=== PATIENT | female | born 1990 | race Caucasian/White ===

== ENCOUNTER 2017-10-01 19:08 | Emergency (ER) | payer SELFPAY ==
--- NOTE | 2017-10-01 22:55 | EDPHYS ---
Physician Documentation [facility] Name: Tyra Villalta Age: 26 yrs Sex: Female : 1990 Arrival Date: 10/01/2017 Time: 19:09 Bed Waiting Private MD: ED Physician Jayden Cerna HPI: 10/01 19:51 This 26 yrs old Female presents to ER via Ambulatory with complaints of kav Abscess. 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 - Social history:: Smoking status: Patient uses tobacco products, smokes one pack cigarettes per day. Vital Signs: 19:31 BP 161 / 114; Pulse 78; Resp 19 S; Temp 98.3(O); Pulse Ox 100% on R/A; Weight 113.4 kg; ea Height 5 ft. 4 in. (162.56 cm); Pain 10/10; 19:31 Body Mass Index 42.91 (113.40 kg, 162.56 cm) ea MDM: 19:52 Patient medically screened. kav Administered Medications: No medications were administered Disposition: 10/02 06:20 Co-signature as Attending Physician, Ragini BURROWS. ursula Disposition: 10/01/17 22:54 Patient left the facility before being seen by provider. - Patient left due to unknown. Signatures: Ragini Edouard FNP FNP kav Ballard, Brenda RN Irene Gold RN RN ea Starr, Gregory, MD MD gs
--- NOTE | 2017-10-01 22:55 | ER ---
Nurse's Notes [facility] Name: Tyra Villalta Age: 26 yrs Sex: Female : 1990 Arrival Date: 10/01/2017 Time: 19:09 Bed Waiting Private MD: Diagnosis: Presentation: 10/01 19:27 Presenting complaint: Patient states: Tooth ache that started yesterday, reports ea swelling to the right side of gums. Transition of care: patient was not received from another setting of care. Onset of symptoms was October 01, 2017. Care prior to arrival: Medication(s) given: Motrin. 19:27 Method Of Arrival: Ambulatory ea 19:27 Acuity: BREANNA 5 ea Triage Assessment: 19:32 General: Appears uncomfortable, Behavior is calm, cooperative, appropriate for age. ea Pain: Complains of pain in mouth Pain does not radiate. Pain radiates to head Pain currently is 10 out of 10 on a pain scale. Quality of pain is described as aching, throbbing, Pain began 2-3 days ago. 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 - Social history:: Smoking status: Patient uses tobacco products, smokes one pack cigarettes per day. Vital Signs: 19:31 BP 161 / 114; Pulse 78; Resp 19 S; Temp 98.3(O); Pulse Ox 100% on R/A; Weight 113.4 kg; ea Height 5 ft. 4 in. (162.56 cm); Pain 10/10; 19:31 Body Mass Index 42.91 (113.40 kg, 162.56 cm) ea ED Course: 19:09 Patient arrived in ED. mr 19:30 Triage completed. ea 19:50 Ragini Edouard FNP [facility] ka 19:51 Jayden Cerna MD is Attending Physician. ka 22:54 Patient's name was called from ER lobby. No response. Unable to locate patient. Will bb disposition as left without being seen by a provider. Administered Medications: No medications were administered Outcome: 22:54 Patient left the ED. bb Signatures: Ragini Edouard FNP FNP kav Rivera, Maria mr Radha Espino, RN RN Irene Allen RN RN christopher
== END 2017-10-01 22:54 | disposition left against medical advice (07) ==
LOC: ER 19:08
DX: Z02.9 Encounter for administrative examinations, unspecified
CPT/HCPCS: 99281

== ENCOUNTER 2018-01-12 12:45 | Emergency (ER) | payer SELFPAY ==
[2018-01-12] MEDS ORDERED: TETRACAINE HCL 0.5% 2ML OPTH ONE (13:19)
[2018-01-12] MEDS ORDERED: AMOX/K CLAV 875 MG TAB ONE (13:19)
[2018-01-12] MEDS ORDERED: HYDROCODONE/APAP 5/325 MG TAB ONE (13:19)
--- NOTE | 2018-01-12 13:37 | ER ---
Nurse's Notes [facility] Name: Tyra Villalta Age: 27 yrs Sex: Female : 1990 Arrival Date: 01/12/2018 Time: 12:49 Bed 24 Private MD: None, None Diagnosis: Acute serous otitis media Presentation: 01/12 12:51 Presenting complaint: Patient states: richar been having ear pain since i woke up this morning; denies fever and chills; took Mucinex and ibuprofen;. Transition of care: patient was not received from another setting of care. Onset of symptoms was January 12, 2018. Risk Assessment: Do you want to hurt yourself or someone else? Patient reports no desire to harm self or others. Initial Sepsis Screen: Does the patient meet any 2 criteria? No. Patient's initial sepsis screen is negative. Does the patient have a suspected source of infection? No. Patient's initial sepsis screen is negative. Care prior to arrival: None. 12:51 Method Of Arrival: Ambulatory 12:51 Acuity: BREANNA 4 Triage Assessment: 12:53 General: Appears in no apparent distress. uncomfortable, Behavior is cooperative, hj appropriate for age, crying. Pain: Complains of pain in left ear. EENT: Reports pain in left ear. 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 - Social history:: Smoking status: Patient uses tobacco products, smokes one pack cigarettes per day. Patient/guardian denies using alcohol. - Ebola Screening: : Patient negative for fever greater than or equal to 101.5 degrees Fahrenheit, and additional compatible Ebola Virus Disease symptoms Patient denies exposure to infectious person Patient denies travel to an Ebola-affected area in the 21 days before illness onset. Screenin:53 Abuse screen: Denies threats or abuse. Denies injuries from another. Nutritional hj screening: No deficits noted. Tuberculosis screening: No symptoms or risk factors identified. Fall Risk None identified. Assessment: 14:19 General: Appears in no apparent distress. comfortable, Behavior is calm, cooperative, aj1 appropriate for age. Pain: Complains of pain in left ear. Neuro: Level of Consciousness is awake, alert, obeys commands, Oriented to person, place, time, situation, Speech is normal, Facial symmetry appears normal. Cardiovascular: Patient's skin is warm and dry. Respiratory: Airway is patent Respiratory effort is even, unlabored, Respiratory pattern is regular, symmetrical. GI: No signs and/or symptoms were reported involving the gastrointestinal system. : No signs and/or symptoms were reported regarding the genitourinary system. EENT: Reports ear pain. Derm: No signs and/or symptoms reported regarding the dermatologic system. Skin is pink, warm \T\ dry. normal. Musculoskeletal: No signs and/or symptoms reported regarding the musculoskeletal system. Circulation, motion, and sensation intact. Vital Signs: 12:53 BP 133 / 79; Pulse 84; Resp 18; Temp 98.8(O); Pulse Ox 98% on R/A; Weight 113.4 kg; hj Height 5 ft. 4 in. (162.56 cm); Pain 10/10; 12:53 Body Mass Index 42.91 (113.40 kg, 162.56 cm) hj ED Course: 12:49 Patient arrived in ED. mr 12:49 None, None is Private Physician. mr 12:51 Israel Sanchez PA is [facility] 12:52 Jayden Cerna MD is Attending Physician. jm 12:52 Triage completed. hj 12:53 Arm band placed on right wrist. hj 12:53 Patient has correct armband on for positive identification. Placed in gown. Bed in low hj position. Call light in reach. 13:09 Essence Kwan, AGAPITO is Primary Nurse. aj1 13:35 Kalina Wilkinson DO is Referral Physician. jmm 13:35 Juan Naqvi MD is Referral Physician. jmm 13:35 Odilon Yates MD is Referral Physician. jmm 14:19 No provider procedures requiring assistance completed. Patient did not have IV access aj1 during this emergency room visit. Administered Medications: 13:35 Drug: [place] 5 mg-325 mg 1 tabs Route: PO; aj1 14:21 Follow up: Response: No adverse reaction aj1 13:35 Drug: Augmentin 875 mg Route: PO; aj1 14:21 Follow up: Response: No adverse reaction aj1 13:35 Drug: Tetracaine Solution (0.5 %) 1 pumps Route: Topical; Site: affected area; aj1 14:21 Follow up: Response: No adverse reaction aj1 Outcome: 13:36 Discharge ordered by MD. wood 14:21 Patient left the ED. aj1 Signatures: Essence Kwan RN RN aj1 Israel Sanchez PA PA jmm Rivera, Maria mr Joaquin, Henry, RN RN hj Corrections: (The following items were deleted from the chart) 12:56 12:53 Pulse 84bpm; Resp 18bpm; Pulse Ox 98% RA; Temp 98.8F Oral; 113.4 kg; Height 5 ft. hj 4 in.; BMI: 42.9; Pain 10/10; hj
--- NOTE | 2018-01-12 13:37 | EDPHYS ---
Physician Documentation [facility] Name: Tyra Villalta Age: 27 yrs Sex: Female : 1990 Arrival Date: 01/12/2018 Time: 12:49 Bed 24 Private MD: None, None ED Physician Jayden Cerna HPI: 01/12 13:03 This 27 yrs old Female presents to ER via Ambulatory with complaints of Ear jmm Pain. 13:03 The patient presents with pain, that is acute. The complaints affect the left ear. jmm Onset: The symptoms/episode began/occurred this morning. Modifying factors: The symptoms are alleviated by nothing, the symptoms are aggravated by nothing. Associated signs and symptoms: Pertinent positives: cough. This is a 27 year old female with no chronic medical conditions that presents to the ED with left ear pain beginning this morning. The patient states having a cough and congestion over the past 3 days. Denies fever. . 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 - Social history:: Smoking status: Patient uses tobacco products, smokes one pack cigarettes per day. Patient/guardian denies using alcohol. - Ebola Screening: : Patient negative for fever greater than or equal to 101.5 degrees Fahrenheit, and additional compatible Ebola Virus Disease symptoms Patient denies exposure to infectious person Patient denies travel to an Ebola-affected area in the 21 days before illness onset. ROS: 13:03 Cardiovascular: Negative for chest pain, palpitations, and edema. jmm 13:03 Constitutional: Positive for malaise. 13:03 ENT: Positive for ear pain. 13:03 Respiratory: Positive for cough. 13:03 Neuro: Negative for headache. 13:03 All other systems are negative. Exam: 13:03 Head/Face: atraumatic. Chest/axilla: Normal chest wall appearance and motion. jmm Cardiovascular: Regular rate and rhythm. No edema appreciated Respiratory: Normal respirations, no respiratory distress appreciated 13:03 Back: Normal ROM Skin: General appearance color normal MS/ Extremity: Moves all extremities, no obvious deformities appreciated, no edema noted to the lower extremities Neuro: Awake and alert, normal gait Psych: Behavior is normal, Mood is normal, Patient is cooperative and pleasant 13:03 Constitutional: The patient appears alert, awake, in obvious pain, uncomfortable. 13:03 Respiratory: Breath sounds: are clear throughout. Vital Signs: 12:53 BP 133 / 79; Pulse 84; Resp 18; Temp 98.8(O); Pulse Ox 98% on R/A; Weight 113.4 kg; hj Height 5 ft. 4 in. (162.56 cm); Pain 10/10; 12:53 Body Mass Index 42.91 (113.40 kg, 162.56 cm) hj MDM: 12:56 Patient medically screened. [facility] 13:03 Data reviewed: vital signs, nurses notes. [facility] 13:34 Counseling: I had a detailed discussion with the patient and/or guardian regarding: the [facility] historical points, exam findings, and any diagnostic results supporting the discharge/admit diagnosis, the presence of at least one elevated blood pressure reading (>120/80) during this emergency department visit, the need for outpatient follow up, to return to the emergency department if symptoms worsen or persist or if there are any questions or concerns that arise at home. Response to treatment: the patient's symptoms have markedly improved after treatment. Administered Medications: 13:35 Drug: [place] 5 mg-325 mg 1 tabs Route: PO; aj1 14:21 Follow up: Response: No adverse reaction [facility] 13:35 Drug: Augmentin 875 mg Route: PO; aj1 14:21 Follow up: Response: No adverse reaction [facility] 13:35 Drug: Tetracaine Solution (0.5 %) 1 pumps Route: Topical; Site: affected area; aj1 14:21 Follow up: Response: No adverse reaction aj1 Disposition: 20:54 Co-signature as Attending Physician, Jayden Cerna MD. Disposition: 01/12/18 13:36 Discharged to Home. Impression: Acute serous otitis media. - Condition is Stable. - Discharge Instructions: Otitis Media, Adult. - Prescriptions for Augmentin 875- 125 mg Oral Tablet - take 1 tablet by ORAL route every 12 hours for 10 days; 20 tablet. Ultram 50 mg Oral Tablet - take 1 tablet by ORAL route every 6 hours As needed; 6 tablet. - Work release form, Medication Reconciliation Form, Thank You Letter, Antibiotic Education, Prescription Opioid Use form. - Follow up: Kalina Wilkinson DO; When: 2 - 3 days; Reason: Continuance of care. Follow up: Juan Naqvi MD; When: 2 - 3 days; Reason: Continuance of care. Follow up: Odilon Yates MD; When: 2 - 3 days; Reason: Continuance of care. Signatures: Essence Kwan RN RN aj1 Felton Salinas MD MD cha Mickail, Joel, PA PA jmm Laureano Wagner RN RN hj Jayden Cerna MD MD gs Corrections: (The following items were deleted from the chart) 14:21 13:36 01/12/2018 13:36 Discharged to Home. Impression: Acute serous otitis media. aj1 Condition is Stable. Forms are Medication Reconciliation Form, Thank You Letter, Antibiotic Education, Prescription Opioid Use. Follow up: Kalina Wilkinson; When: 2 - 3 days; Reason: Continuance of care. Follow up: Juan Naqvi; When: 2 - 3 days; Reason: Continuance of care. Follow up: Odilon Yates; When: 2 - 3 days; Reason: Continuance of care. [facility]
== END 2018-01-12 14:21 | disposition home or self-care (01) ==
LOC: ER 12:45
DX: H65.02 Acute serous otitis media, left ear (principal); F17.210 Nicotine dependence, cigarettes, uncomplicated
CPT/HCPCS: 99282

== ENCOUNTER 2018-01-13 01:33 | Emergency (ER) | payer SELFPAY ==
[2018-01-13] MEDS ORDERED: CODEINE 30MG/APAP 300MG TAB ONE (02:08)
[2018-01-13] MEDS ORDERED: KETOROLAC 30 MG/ML INJ ONE (02:09)
[2018-01-13] MEDS ORDERED: WATER FOR INJ,STERILE 10 ML ONE (02:18)
[2018-01-13] MEDS ORDERED: CEFTRIAXONE 1000 MG/VIAL ONE (02:18)
[2018-01-13] MEDS ORDERED: ONDANSETRON 4 MG (ODT) TAB ONE (02:30)
--- NOTE | 2018-01-13 02:43 | EDPHYS ---
Physician Documentation [facility] Name: Tyra Villalta Age: 27 yrs Sex: Female : 1990 Arrival Date: 01/13/2018 Time: 01:34 Bed 14 Private MD: ED Physician Jaxson Gonzales HPI: 01/13 02:00 This 27 yrs old Female presents to ER via Ambulatory with complaints of Ear cp Pain. 02:00 The patient presents with pain. The complaints affect the right ear and left ear. cp 02:00 Onset: The symptoms/episode began/occurred and became worse tonight. cp 02:00 Associated signs and symptoms: Pertinent negatives: cough, fever, sinus trouble, sore cp throat. 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 - Social history:: Smoking status: Patient uses tobacco products, smokes one pack cigarettes per day. - Ebola Screening: : Patient negative for fever greater than or equal to 101.5 degrees Fahrenheit, and additional compatible Ebola Virus Disease symptoms Patient denies exposure to infectious person Patient denies travel to an Ebola-affected area in the 21 days before illness onset. ROS: 02:10 Constitutional: Negative for fever, poor PO intake. cp 02:10 Eyes: Negative for injury, pain, redness, and discharge. cp 02:10 ENT: Positive for ear pain, Negative for drainage from ear(s), sore throat, difficulty swallowing, difficulty handling secretions. 02:10 Cardiovascular: Negative for chest pain. 02:10 Respiratory: Negative for cough, wheezing. 02:10 Skin: Negative for cellulitis, rash. 02:10 Neuro: Negative for altered mental status, headache, weakness. 02:10 All other systems are negative. Exam: 02:20 Head/Face: Normocephalic, atraumatic. cp 02:20 Constitutional: The patient appears alert, awake, non-toxic, well developed, well nourished, obese, uncomfortable, crying 02:20 Eyes: Periorbital structures: appear normal, Conjunctiva: normal, no exudate, no injection, Lids and lashes: appear normal, bilaterally. 02:20 ENT: External ear(s): are unremarkable, Ear canal(s): erythema, that is moderate, bilaterally, purulent discharge, is not appreciated, swelling, is not appreciated, TM's: bulging, bilaterally, erythema, that is marked, bilaterally, Nose: is normal, Mouth: is normal, Posterior pharynx: is normal, airway is patent, no erythema, no exudate, Voice: is normal. 02:20 Neck: ROM/movement: is normal, is supple, without pain, no range of motions limitations, no nuchal rigidity, Lymph nodes: no appreciated lymphadenopathy. 02:20 Chest/axilla: Inspection: normal. 02:20 Cardiovascular: Rate: normal, Rhythm: regular. 02:20 Respiratory: the patient does not display signs of respiratory distress, Respirations: normal, no use of accessory muscles, no retractions, no splinting, no tachypnea, labored breathing, is not present. 02:20 Abdomen/GI: Exam negative for discomfort, distension, guarding, Inspection: obese 02:20 Skin: cellulitis, is not appreciated, no rash present. 02:20 Neuro: Orientation: to person, place \T\ time. Mentation: is normal, Cerebellar function: is grossly normal, Motor: moves all fours, strength is normal, Sensation: is normal. Vital Signs: 01:35 BP 149 / 113; Pulse 78; Resp 20; Temp 98.5(O); Pulse Ox 97% on R/A; Weight 117.93 kg fc (R); Height 5 ft. 4 in. (162.56 cm) (R); Pain 10/10; 01:35 Body Mass Index 44.63 (117.93 kg, 162.56 cm) fc MDM: 01:49 Patient medically screened. cp 02:41 Data reviewed: vital signs, nurses notes, and as a result, I will discharge patient. cp 02:41 Response to treatment: the patient's symptoms have markedly improved after treatment, cp and as a result, I will discharge patient. 01/13 02:08 Order name: Urine Dipstick--Ancillary (enter results) [facility] 01/13 02:08 Order name: Urine --Ancillary (enter results) [facility] 01/13 01:56 Order name: Urine Test (obtain specimen); Complete Time: 01:59 cp 01/13 01:56 Order name: Urine Dipstick-Ancillary (obtain specimen); Complete Time: 01:58 cp Administered Medications: 02:08 CANCELLED (Physician Discretion): Rocephin - (cefTRIAXone) 2 grams IVPB once over 30 bb mins; (mix in 100 mL NS) if test negative 02:13 Drug: TORadol 60 mg Route: IM; Site: right gluteus; mg2 02:56 Follow up: Response: No adverse reaction; Pain is decreased mg2 02:13 Drug: Tylenol #3 (300 mg-30 mg) 2 tabs Route: PO; mg2 02:56 Follow up: Response: No adverse reaction; patient vomited the medicine mg2 02:23 Drug: Rocephin (cefTRIAXone) 2 grams Route: IM; Site: left gluteus; mg2 02:56 Follow up: Response: No adverse reaction; Medication administered at discharge. mg2 02:30 Drug: Zofran 4 mg Route: PO; mg2 02:57 Follow up: Response: No adverse reaction; Nausea is decreased; Vomiting decreased mg2 Disposition: 01/13/18 02:42 Discharged to Home. Impression: Otitis media in diseases classified elsewhere, bilateral. - Condition is Stable. - Discharge Instructions: Otitis Media, Adult. - Prescriptions for Naprosyn 500 mg Oral Tablet - take 1 tablet by ORAL route 2 times per day take with food; 20 tablet. Tylenol- Codeine #3 300-30 mg Oral Tablet - take 2 tablets by ORAL route every 6 hours As needed; 20 tablet. Zofran 4 mg Oral Tablet - take 1 tablet by ORAL route every 12 hours As needed; 20 tablet. - Medication Reconciliation Form, Thank You Letter, Antibiotic Education, Prescription Opioid Use form. - Follow up: Kortney Warner MD; When: 2 - 3 days; Reason: Recheck today's complaints. - Problem is an ongoing problem. - Symptoms have improved. Signatures: Dispatcher [employer] EDArlette Ghosh RN RN fc Radha Espino RN RN bb Felton Ram, MARIELLE PA cp Alphonse Cancino RN RN mg2 Corrections: (The following items were deleted from the chart) 02:08 01:56 Rocephin - (cefTRIAXone) 2 grams IVPB once over 30 mins; (mix in 100 mL NS) if bb test negative ordered. cp 02:46 02:42 01/13/2018 02:42 Discharged to Home. Impression: Acute serous otitis media, cp recurrent, bilateral. Condition is Stable. Forms are Medication Reconciliation Form, Thank You Letter, Antibiotic Education, Prescription Opioid Use. Follow up: Kortney Warner; When: 2 - 3 days; Reason: Recheck today's complaints. Problem is an ongoing problem. Symptoms have improved. cp 03:04 02:46 01/13/2018 02:42 Discharged to Home. Impression: Otitis media in diseases mg2 classified elsewhere, bilateral. Condition is Stable. Discharge Instructions: Serous Otitis Media. Forms are Medication Reconciliation Form, Thank You Letter, Antibiotic Education, Prescription Opioid Use. Follow up: Kortney Warner; When: 2 - 3 days; Reason: Recheck today's complaints. Problem is an ongoing problem. Symptoms have improved. cp
--- NOTE | 2018-01-13 02:43 | ER ---
Nurse's Notes [facility] Name: Tyra Villalta Age: 27 yrs Sex: Female : 1990 Arrival Date: 01/13/2018 Time: 01:34 Bed 14 Private MD: Diagnosis: Otitis media in diseases classified elsewhere, bilateral Presentation: 01/13 01:35 Presenting complaint: Patient states: that she is having severe bilateral ear pain. Was fc seen here yesterday and given PO antibiotics and Tramadol. States that they are not working. Left ear is now having drainage. Transition of care: patient was not received from another setting of care. Onset of symptoms was January 2018. Risk Assessment: Do you want to hurt yourself or someone else? Patient reports no desire to harm self or others. Initial Sepsis Screen: Does the patient meet any 2 criteria? No. Patient's initial sepsis screen is negative. Does the patient have a suspected source of infection? No. Patient's initial sepsis screen is negative. Care prior to arrival: None. 01:35 Method Of Arrival: Ambulatory 01:35 Acuity: BREANNA 4 Triage Assessment: 01:52 General: Appears uncomfortable, obese, Behavior is cooperative, appropriate for age, fc anxious, crying. Pain: Complains of pain in right ear and left ear Pain currently is 10 out of 10 on a pain scale. EENT: Reports pain in left ear and right ear. Neuro: Level of Consciousness is awake, alert, obeys commands, Oriented to person, place, time, situation. Cardiovascular: No deficits noted. Respiratory: No deficits noted. GI: No deficits noted. : No deficits noted. Derm: Skin is pink, warm \T\ dry. Musculoskeletal: Circulation, motion, and sensation intact. Capillary refill < 3 seconds. 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 - Social history:: Smoking status: Patient uses tobacco products, smokes one pack cigarettes per day. - Ebola Screening: : Patient negative for fever greater than or equal to 101.5 degrees Fahrenheit, and additional compatible Ebola Virus Disease symptoms Patient denies exposure to infectious person Patient denies travel to an Ebola-affected area in the 21 days before illness onset. Screenin:51 Abuse screen: Denies threats or abuse. Nutritional screening: No deficits noted. fc Tuberculosis screening: No symptoms or risk factors identified. Fall Risk None identified. Assessment: 02:30 EENT: Reports pain in left ear and right ear Pain is 10 out of 10 on a pain scale. mg2 Vital Signs: 01:35 BP 149 / 113; Pulse 78; Resp 20; Temp 98.5(O); Pulse Ox 97% on R/A; Weight 117.93 kg fc (R); Height 5 ft. 4 in. (162.56 cm) (R); Pain 10/10; 01:35 Body Mass Index 44.63 (117.93 kg, 162.56 cm) fc ED Course: 01:34 Patient arrived in ED. es 01:35 Arm band placed on Patient placed in an exam room, on a stretcher. fc 01:49 Felton Ram PA is PHCP. cp 01:49 Jaxson Gonzales MD is Attending Physician. cp 01:50 Triage completed. fc 01:51 Patient has correct armband on for positive identification. Bed in low position. Call light in reach. 01:55 Alphonse Cancino, AGAPITO is Primary Nurse. mg2 02:42 Kortney Warner MD is Referral Physician. cp 02:58 No provider procedures requiring assistance completed. Patient did not have IV access mg2 during this emergency room visit. Administered Medications: 02:08 CANCELLED (Physician Discretion): Rocephin - (cefTRIAXone) 2 grams IVPB once over 30 bb mins; (mix in 100 mL NS) if test negative 02:13 Drug: TORadol 60 mg Route: IM; Site: right gluteus; mg2 02:56 Follow up: Response: No adverse reaction; Pain is decreased mg2 02:13 Drug: Tylenol #3 (300 mg-30 mg) 2 tabs Route: PO; mg2 02:56 Follow up: Response: No adverse reaction; patient vomited the medicine mg2 02:23 Drug: Rocephin (cefTRIAXone) 2 grams Route: IM; Site: left gluteus; mg2 02:56 Follow up: Response: No adverse reaction; Medication administered at discharge. mg2 02:30 Drug: Zofran 4 mg Route: PO; mg2 02:57 Follow up: Response: No adverse reaction; Nausea is decreased; Vomiting decreased mg2 Intake: Outcome: 02:42 Discharge ordered by MD. cp 03:03 Discharged to home via wheelchair, with family. mg2 03:03 Condition: stable 03:03 Discharge instructions given to patient, family, Instructed on discharge instructions, follow up and referral plans. medication usage, Demonstrated understanding of instructions, follow-up care, medications, Prescriptions given X 3. 03:04 Patient left the ED. mg2 Signatures: Ofelia Neves Felicia, RN RN fc Felton Ram PA PA cp Alphonse Cancino RN RN mg2 Radha Espino RN bb
[2018-01-13 05:20] LABS: Urine Blood NEGATIVE (NEG); Urine Glucose NEGATIVE (NEG); Urine Protein NEGATIVE (NEG); Urine Specific Gravity 1.025 (1.005-1.030)
== END 2018-01-13 03:04 | disposition home or self-care (01) ==
LOC: ER 01:33
DX: H65.06 Acute serous otitis media, recurrent, bilateral (principal); Z88.0 Allergy status to penicillin; F17.210 Nicotine dependence, cigarettes, uncomplicated
CPT/HCPCS: 81003; 81025; 96372; 99283

== ENCOUNTER 2018-01-20 16:05 | Emergency (ER) | payer SELFPAY ==
[2018-01-20 17:36] LABS: Urine Blood TRACE (NEG); Urine Glucose NEGATIVE (NEG); Urine Protein TRACE (NEG); Urine Specific Gravity >1.030 (1.005-1.030); Urine pH 5.5 (5.0-7.0)
--- NOTE | 2018-01-20 17:49 | EDPHYS ---
Physician Documentation [facility] Name: Tyra Villalta Age: 27 yrs Sex: Female : 1990 Arrival Date: 01/20/2018 Time: 16:07 Bed 20 Private MD: None, None ED Physician Ron Blackman HPI: 01/20 17:00 This 27 yrs old Female presents to ER via Ambulatory with complaints of Back pm1 Pain, Infected Belly Button. 17:00 The patient presents with cellulitis of the umbilical area. Description: draining. pm1 Onset: The symptoms/episode began/occurred 2 day(s) ago. Possible cause(s): unknown. Associated signs and symptoms: Pertinent negatives: fever. Modifying factors: the symptoms are alleviated by nothing, the symptoms are aggravated by touching. Severity of symptoms: in the emergency department the symptoms are unchanged. The patient has experienced similar episodes in the past, occurs once monthly and resolves without intervention. The patient has not recently seen a physician. BAR HOST: 16:18 LMP 11/14/2017 Historical: - Allergies: 16:16 PENICILLINS; hj - Home Meds: 16:16 None [Active]; hj - PMHx: 16:16 None; hj - PSHx: 16:16 ; hj - Immunization history:: Adult Immunizations up to date. - Social history:: Smoking status: Patient uses tobacco products, smokes one pack cigarettes per day. Patient/guardian denies using alcohol. - Ebola Screening: : Patient negative for fever greater than or equal to 101.5 degrees Fahrenheit, and additional compatible Ebola Virus Disease symptoms Patient denies exposure to infectious person Patient denies travel to an Ebola-affected area in the 21 days before illness onset. ROS: 17:00 Constitutional: Negative for fever, chills, and weight loss, Eyes: Negative for injury, pm1 pain, redness, and discharge, ENT: Negative for injury, pain, and discharge, Neck: Negative for injury, pain, and swelling, Cardiovascular: Negative for chest pain, palpitations, and edema, Respiratory: Negative for shortness of breath, cough, wheezing, and pleuritic chest pain, Abdomen/GI: Negative for abdominal pain, nausea, vomiting, diarrhea, and constipation. 17:00 : Negative for injury, bleeding, discharge, and swelling, MS/Extremity: Negative for injury and deformity. 17:00 Back: Positive for of the low back area. 17:00 Skin: Positive for cellulitis, of the umbilical area. Exam: 17:00 Constitutional: This is a well developed, well nourished patient who is awake, alert, pm1 and in no acute distress. Head/Face: Normocephalic, atraumatic. Eyes: Pupils equal round and reactive to light, extra-ocular motions intact. Lids and lashes normal. Conjunctiva and sclera are non-icteric and not injected. Cornea within normal limits. Periorbital areas with no swelling, redness, or edema. ENT: Nares patent. No nasal discharge, no septal abnormalities noted. Tympanic membranes are normal and external auditory canals are clear. Oropharynx with no redness, swelling, or masses, exudates, or evidence of obstruction, uvula midline. Mucous membranes moist. Neck: Trachea midline, no thyromegaly or masses palpated, and no cervical lymphadenopathy. Supple, full range of motion without nuchal rigidity, or vertebral point tenderness. No Meningismus. Chest/axilla: Normal chest wall appearance and motion. Nontender with no deformity. No lesions are appreciated. Cardiovascular: Regular rate and rhythm with a normal S1 and S2. No gallops, murmurs, or rubs. Normal PMI, no JVD. No pulse deficits. Respiratory: Lungs have equal breath sounds bilaterally, clear to auscultation and percussion. No rales, rhonchi or wheezes noted. No increased work of breathing, no retractions or nasal flaring. Abdomen/GI: Soft, non-tender, with normal bowel sounds. No distension or tympany. No guarding or rebound. No evidence of tenderness throughout. 17:00 Back: normal spinal alignment noted, CVA tenderness, is absent. 17:00 Skin: Appearance: normal except for affected area, cellulitis, that is minimal, on the umbilical area. 17:00 Neuro: Orientation: is normal, Motor: moves all fours, strength is normal, strength is 5/5 in all extremities, Gait: is steady, at a normal pace, without difficulty. Vital Signs: 16:16 BP 131 / 88; Pulse 95; Resp 18; Temp 98.1(O); Pulse Ox 100% on R/A; Weight 133.81 kg; hj Height 5 ft. 4 in. (162.56 cm); Pain 10/10; 16:16 Body Mass Index 50.64 (133.81 kg, 162.56 cm) hj MDM: 16:50 Patient medically screened. pm1 17:46 Data reviewed: vital signs. Data interpreted: Pulse oximetry: on room air is 100 %. pm1 Interpretation: normal. Counseling: I had a detailed discussion with the patient and/or guardian regarding: the historical points, exam findings, and any diagnostic results supporting the discharge/admit diagnosis, the need for outpatient follow up, to return to the emergency department if symptoms worsen or persist or if there are any questions or concerns that arise at home. 01/20 17:23 Order name: Urine Dipstick--Ancillary (enter results); Complete Time: 17:45 ag 01/20 17:23 Order name: Urine --Ancillary (enter results); Complete Time: 17:45 ag 01/20 16:53 Order name: Urine Dipstick-Ancillary (obtain specimen); Complete Time: 17:52 pm1 01/20 16:53 Order name: Urine Test (obtain specimen); Complete Time: 17:52 pm1 Administered Medications: 18:11 Drug: Tetanus-Diphtheria Toxoid Adult 0.5 ml {Tank House Operator: RFMarq. Exp: mb3 03/11/2020. Lot #: [id number]. } Route: IM; Site: right deltoid; 18:12 Follow up: Response: No adverse reaction mb3 Disposition: 18:28 Co-signature as Attending Physician, Ron Blackman MD. rn Disposition: 01/20/18 17:48 Discharged to Home. Impression: Cellulitis of umbilicus. - Condition is Stable. - Discharge Instructions: Cellulitis. - Prescriptions for Bactrim DS 800- 160 mg Oral Tablet - take 1 tablet by ORAL route every 12 hours for 10 days; 20 tablet. Tramadol 50 mg Oral Tablet - take 1 tablet by ORAL route every 8 hours as needed; 12 tablet. - Medication Reconciliation Form, Thank You Letter, Antibiotic Education, Prescription Opioid Use form. - Follow up: Emergency Department; When: As needed; Reason: Worsening of condition. Follow up: Private Physician; When: 2 - 3 days; Reason: Recheck today's complaints, Continuance of care, Re-evaluation by your physician. - Problem is new. - Symptoms have improved. Signatures: Dispatcher [employer] EDRon Almonte MD MD rn Joaquin, Henry, RN RN hj Marinas, Patrick, [place] EDITOR pm1 Faheem Partida RN RN mb3 Corrections: (The following items were deleted from the chart) 18:14 17:48 01/20/2018 17:48 Discharged to Home. Impression: Cellulitis of umbilicus. mb3 Condition is Stable. Forms are Medication Reconciliation Form, Thank You Letter, Antibiotic Education, Prescription Opioid Use. Follow up: Emergency Department; When: As needed; Reason: Worsening of condition. Follow up: Private Physician; When: 2 - 3 days; Reason: Recheck today's complaints, Continuance of care, Re-evaluation by your physician. Problem is new. Symptoms have improved. pm1
--- NOTE | 2018-01-20 17:49 | ER ---
Nurse's Notes [facility] Name: Tyra Villalta Age: 27 yrs Sex: Female : 1990 Arrival Date: 01/20/2018 Time: 16:07 Bed 20 Private MD: None, None Diagnosis: Cellulitis of umbilicus Presentation: 01/20 16:13 Presenting complaint: Patient states: i had an infected belly button, and its usually hj happens to me almost every month, and my lower hurts, and i haven't had a period for 2 months; denies fever;. Transition of care: patient was not received from another setting of care. Onset of symptoms was January 20, 2018. Risk Assessment: Do you want to hurt yourself or someone else? Patient reports no desire to harm self or others. Initial Sepsis Screen: Does the patient meet any 2 criteria? No. Patient's initial sepsis screen is negative. Does the patient have a suspected source of infection? No. Patient's initial sepsis screen is negative. Care prior to arrival: None. 16:13 Method Of Arrival: Ambulatory 16:13 Acuity: BREANNA 4 hj Triage Assessment: 16:16 General: Appears in no apparent distress. uncomfortable, Behavior is calm, cooperative, hj appropriate for age. Pain: Complains of pain in back. Musculoskeletal: Circulation, motion, and sensation intact. 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 - Social history:: Smoking status: Patient uses tobacco products, smokes one pack cigarettes per day. Patient/guardian denies using alcohol. - Ebola Screening: : Patient negative for fever greater than or equal to 101.5 degrees Fahrenheit, and additional compatible Ebola Virus Disease symptoms Patient denies exposure to infectious person Patient denies travel to an Ebola-affected area in the 21 days before illness onset. Screenin:16 Abuse screen: Denies threats or abuse. Denies injuries from another. Nutritional hj screening: No deficits noted. Tuberculosis screening: No symptoms or risk factors identified. Fall Risk None identified. Assessment: 18:12 General: Appears in no apparent distress. comfortable, obese, Behavior is calm, mb3 cooperative, appropriate for age. Pain: Complains of pain in back and umbilical area. Neuro: No deficits noted. Neuro: Level of Consciousness is awake, alert, obeys commands, Oriented to person, place, time, situation, Appropriate for age. Cardiovascular: No deficits noted. Respiratory: No deficits noted. Vital Signs: 16:16 BP 131 / 88; Pulse 95; Resp 18; Temp 98.1(O); Pulse Ox 100% on R/A; Weight 133.81 kg; hj Height 5 ft. 4 in. (162.56 cm); Pain 10/10; 16:16 Body Mass Index 50.64 (133.81 kg, 162.56 cm) ED Course: 16:07 Patient arrived in ED. mr 16:07 None, None is Private Physician. mr 16:15 Triage completed. hj 16:16 Arm band placed on right wrist. hj 16:18 Patient has correct armband on for positive identification. Call light in reach. Side hj rails up X 1. Side rails up X2. Adult w/ patient. 16:26 Faheem Partida RN is Primary Nurse. mb3 16:36 Danie Aguilera NP is PHCP. pm1 16:36 Ron Blackman MD is Attending Physician. pm1 18:14 No provider procedures requiring assistance completed. Patient did not have IV access mb3 during this emergency room visit. Administered Medications: 18:11 Drug: Tetanus-Diphtheria Toxoid Adult 0.5 ml {Folder Taper Operator: [employer]. Exp: mb3 03/11/2020. Lot #: [id number]. } Route: IM; Site: right deltoid; 18:12 Follow up: Response: No adverse reaction mb3 Outcome: 17:48 Discharge ordered by . pm1 18:13 Discharged to home ambulatory. mb3 18:13 Condition: stable 18:13 Discharge instructions given to patient, Instructed on discharge instructions, follow up and referral plans. medication usage, Demonstrated understanding of instructions, follow-up care, medications, Prescriptions given X 2. 18:14 Patient left the ED. mb3 Signatures: Ninfa Ontiveros Henry, RN RN Danie Aguilera NP BRICK SETTER OPERATOR pm1 Faheem Partida RN RN mb3 Corrections: (The following items were deleted from the chart) 16:19 16:16 Pulse 95bpm; Resp 18bpm; Pulse Ox 100% RA; Temp 98.1F Oral; 133.81 kg; Height 5 hj ft. 4 in.; BMI: 50.6; Pain 10/10; hj
[2018-01-20] MEDS ORDERED: TETANUS & DIPHTHERIA TOX,ADULT 0.5 ML VIAL ONE ×3 (18:03→18:13)
== END 2018-01-20 18:14 | disposition home or self-care (01) ==
LOC: ER 16:05
DX: L03.316 Cellulitis of umbilicus (principal); F17.210 Nicotine dependence, cigarettes, uncomplicated; Z88.0 Allergy status to penicillin
CPT/HCPCS: 81003; 81025; 90714; 99283

== ENCOUNTER 2018-04-12 17:09 | Emergency (ER) | payer SELFPAY ==
[2018-04-12] MEDS ORDERED: KETOROLAC 30 MG/ML INJ ONE (18:26)
--- NOTE | 2018-04-12 20:50 | RAD REPORT ---
EXAM DESCRIPTION: RAD - Foot Right 3 View - 04/12/2018 6:37 pm CLINICAL HISTORY: Foot pain following trauma COMPARISON: None. FINDINGS: No fracture, dislocation or periosteal reaction. No acute or destructive bone process. Pat ient has a large plantar spur. No air or foreign body in the soft tissues. IMPRESSION: Negative right foot examination for acute finding Large plantar spur.
--- NOTE | 2018-04-12 20:50 | RAD REPORT ---
EXAM DESCRIPTION: RAD - Ankle Right 3 View - 04/12/2018 6:37 pm CLINICAL HISTORY: Ankle pain following trauma COMPARISON: None. FINDINGS: No fracture, dislocation or periosteal reaction. No joint effusion seen. No joint space na rrowing. Soft tissues are mildly prominent. Baseline for the soft tissues unknown. Patient has a larg e plantar spur. IMPRESSION: Mild soft tissue swelling without fracture. Large plantar spur.
--- NOTE | 2018-04-12 21:01 | ER ---
Nurse's Notes [facility] Name: Tyra Villalta Age: 27 yrs Sex: Female : 1990 Arrival Date: 04/12/2018 Time: 17:12 Bed 9 Private MD: None, None Diagnosis: Sprain of ankle Presentation: 04/12 17:39 Presenting complaint: Patient states: Right foot pain 10/10 after rolling foot while hb walking in house yesterday. Unable to bear weight. Transition of care: patient was not received from another setting of care. Onset of symptoms was April 11, 2018. Risk Assessment: Do you want to hurt yourself or someone else? Patient reports no desire to harm self or others. Care prior to arrival: None. 17:39 Method Of Arrival: Wheelchair hb 17:39 Acuity: BREANNA 4 hb 18:37 Initial Sepsis Screen: Does the patient meet any 2 criteria? No. Patient's initial rv sepsis screen is negative. Does the patient have a suspected source of infection? No. Patient's initial sepsis screen is negative. Triage Assessment: 21:33 Injury Description: Inflammation to R. ankle. jl3 CLINICAL DOCUMENTATION SPEC: 17:42 LMP N/A - control method hb Historical: - Allergies: 17:42 PENICILLINS; hb - Home Meds: 17:42 None [Active]; hb - PMHx: 17:42 None; hb - PSHx: 17:42 ; hb - Social history:: Smoking status: Patient uses tobacco products, smokes one pack cigarettes per day. Patient/guardian denies using alcohol, street drugs, The patient lives with family. - Ebola Screening: : No symptoms or risks identified at this time. - Family history:: not pertinent. Screenin:36 Abuse screen: Denies threats or abuse. Denies injuries from another. Nutritional rv screening: No deficits noted. Tuberculosis screening: No symptoms or risk factors identified. Fall Risk None identified. Assessment: 18:36 General: Appears in no apparent distress. comfortable, Behavior is calm, cooperative. rv Pain: Denies pain. Neuro: Level of Consciousness is awake, alert, obeys commands, Oriented to person, place, time, situation. Cardiovascular: Capillary refill < 3 seconds. Respiratory: Airway is patent. GI: No signs and/or symptoms were reported involving the gastrointestinal system. : No signs and/or symptoms were reported regarding the genitourinary system. EENT: No signs and/or symptoms were reported regarding the EENT system. Derm: Skin is intact. Musculoskeletal: Reports pain in right foot. Vital Signs: 17:42 BP 140 / 80; Pulse 80; Resp 16; Temp 97.8; Pulse Ox 100% on R/A; Weight 137.44 kg; hb Height 5 ft. 4 in. (162.56 cm); Pain 10/10; 18:47 BP 115 / 63; rv 21:33 BP 136 / 78; Pulse 82; Resp 18; Pulse Ox 99% ; Pain 3/10; jl3 17:42 Body Mass Index 52.01 (137.44 kg, 162.56 cm) hb ED Course: 17:12 Patient arrived in ED. sb2 17:12 None, None is Private Physician. sb2 17:42 Triage completed. hb 17:42 Arm band placed on right wrist. 17:43 Duncan Trinidad MD is Attending Physician. ma2 18:37 XRAY Foot RIGHT 3 View In Process Unspecified. EDMS 18:37 XRAY Ankle RIGHT 3 view In Process Unspecified. EDMS 18:37 Patient has correct armband on for positive identification. Call light in reach. Adult rv w/ patient. NIBP on. 21:30 Kyle Ch, RN is Primary Nurse. jl3 21:32 No provider procedures requiring assistance completed. Patient did not have IV access jl3 during this emergency room visit. Administered Medications: 18:33 Drug: TORadol 60 mg Route: IM; Site: right deltoid; rv 20:55 Follow up: Response: No adverse reaction rv 20:40 Drug: [place] (7.5 mg-325 mg) 2 tabs Route: PO; jl3 21:31 Follow up: Response: No adverse reaction jl3 Outcome: 21:00 Discharge ordered by . ma2 21:33 Discharged to home via wheelchair, with friend. jl3 21:33 Condition: stable 21:33 Discharge instructions given to patient, Prescriptions given X 1. 21:34 Patient left the ED. jl3 Signatures: Dispatcher [employer] yKle Carrasco RN RN jl3 Ava Reese RN RN Duncan Trinidad MD MD ma2 Davina Villela sb2 [place] Foote, RN RN rv
--- NOTE | 2018-04-12 21:01 | EDPHYS ---
Physician Documentation [facility] Name: Tyra Villalta Age: 27 yrs Sex: Female : 1990 Arrival Date: 04/12/2018 Time: 17:12 Bed 9 Private MD: None, None ED Physician Duncan Trinidad HPI: 04/12 20:09 This 27 yrs old Female presents to ER via Wheelchair with complaints of Foot ma2 Injury. 20:09 The patient presents with pain. The complaints affect the right foot. Onset: The ma2 symptoms/episode began/occurred suddenly, yesterday. Modifying factors: The symptoms are alleviated by nothing, the symptoms are aggravated by weight bearing, movement. Associated signs and symptoms: Pertinent negatives: calf tenderness, nausea, rash, vomiting. Severity of symptoms: At their worst the symptoms were moderate, in the emergency department the symptoms are unchanged. The patient has not experienced similar symptoms in the past. 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 Patient/guardian denies using alcohol, street drugs, The patient lives with family. - Ebola Screening: : No symptoms or risks identified at this time. - Family history:: not pertinent. ROS: 20:09 MS/extremity: Positive for pain, swelling, Negative for bite, contusion, deformity, ma2 ecchymosis. 20:09 Constitutional: Negative for fever, chills, and weight loss, Cardiovascular: Negative for chest pain, palpitations, and edema, Respiratory: Negative for shortness of breath, cough, wheezing, and pleuritic chest pain, Abdomen/GI: Negative for abdominal pain, nausea, diarrhea, and constipation, Skin: Negative for injury, rash, and discoloration, Neuro: Negative for headache, weakness, numbness, tingling, and seizure, Psych: Negative for depression, anxiety, suicide ideation, homicidal ideation, and hallucinations. Exam: 20:09 Constitutional: This is a well developed, well nourished patient who is awake, alert, ma2 and in no acute distress. Head/Face: Normocephalic, atraumatic. Chest/axilla: Normal chest wall appearance and motion. Nontender with no deformity. No lesions are appreciated. Cardiovascular: Regular rate and rhythm with a normal S1 and S2. No gallops, murmurs, or rubs. Normal PMI, no JVD. No pulse deficits. Respiratory: Lungs have equal breath sounds bilaterally, clear to auscultation and percussion. No rales, rhonchi or wheezes noted. No increased work of breathing, no retractions or nasal flaring. Neuro: Awake and alert, GCS 15, oriented to person, place, time, and situation. Cranial nerves II-XII grossly intact. Motor strength 5/5 in all extremities. Sensory grossly intact. Cerebellar exam normal. Normal gait. 20:09 Musculoskeletal/extremity: ROM: limited active range of motion due to pain, left ankle and foot , left ankle edema and tenderness, skin wnl , Circulation is intact in all extremities. Sensation intact. Compartment Syndrome exam of affected extremity: is normal. Vital Signs: 17:42 BP 140 / 80; Pulse 80; Resp 16; Temp 97.8; Pulse Ox 100% on R/A; Weight 137.44 kg; hb Height 5 ft. 4 in. (162.56 cm); Pain 10/10; 18:47 BP 115 / 63; rv 21:33 BP 136 / 78; Pulse 82; Resp 18; Pulse Ox 99% ; Pain 3/10; jl3 17:42 Body Mass Index 52.01 (137.44 kg, 162.56 cm) hb MDM: 17:43 Patient medically screened. ma2 20:09 Differential diagnosis: fracture, sprain, arthritis, gout. ma2 20:59 Data reviewed: vital signs, nurses notes, EMS record. Counseling: I had a detailed co2 discussion with the patient and/or guardian regarding: the historical points, exam findings, and any diagnostic results supporting the discharge/admit diagnosis, the presence of at least one elevated blood pressure reading (>120/80) during this emergency department visit, the need for outpatient follow up. Response to treatment: the patient's symptoms have markedly improved after treatment. ED course: xray wnl . 04/12 18:13 Order name: MARYBETH Foot RIGHT 3 View; Complete Time: 20:57 ma2 04/12 18:13 Order name: XRAY Ankle RIGHT 3 view; Complete Time: 20:57 co2 04/12 17:44 Order name: NPO; Complete Time: 18:05 co2 04/12 20:58 Order name: Post-op Orthopedic Shoe: boot ma2 04/12 20:59 Order name: Crutches ma2 Administered Medications: 18:33 Drug: TORadol 60 mg Route: IM; Site: right deltoid; rv 20:55 Follow up: Response: No adverse reaction rv 20:40 Drug: [place] (7.5 mg-325 mg) 2 tabs Route: PO; jl3 21:31 Follow up: Response: No adverse reaction jl3 Disposition: 04/12/18 21:00 Discharged to Home. Impression: Sprain of ankle. - Condition is Stable. - Discharge Instructions: Ankle Sprain, [id number]. - Prescriptions for Tylenol- Codeine #3 300-30 mg Oral Tablet - take 2 tablet by ORAL route every 6 hours As needed; 30 tablet. - Medication Reconciliation Form, Thank You Letter, Antibiotic Education, Prescription Opioid Use form. - Work release form (04/13/18 05:27). fc - Follow up: Private Physician; When: Tomorrow; Reason: Continuance of care. - Problem is new. - Symptoms are unchanged. Signatures: Dispatcher [employer] Kyle Carrasco RN RN jl3 Ava Reese RN RN hb Alzahri, Mohammad, MD MD co2 [place] Foote RN RN rv Chretien, Felicia RN fc Corrections: (The following items were deleted from the chart) 21:34 21:00 04/12/2018 21:00 Discharged to Home. Impression: Sprain of ankle. Condition is jl3 Stable. Forms are Medication Reconciliation Form, Thank You Letter, Antibiotic Education, Prescription Opioid Use. Follow up: Private Physician; When: Tomorrow; Reason: Continuance of care. Problem is new. Symptoms are unchanged. ma2
[2018-04-12] MEDS ORDERED: HYDROCODONE/APAP 7.5/325 MG TAB ONE (21:07)
== END 2018-04-12 21:34 | disposition home or self-care (01) ==
LOC: ER 17:09
DX: S93.401A Sprain of unspecified ligament of right ankle, initial encounter (principal); X58.XXXA Exposure to other specified factors, initial encounter; Y93.9 Activity, unspecified; Y92.9 Unspecified place or not applicable; Z88.0 Allergy status to penicillin; F17.210 Nicotine dependence, cigarettes, uncomplicated
CPT/HCPCS: 96372; 99283

== ENCOUNTER 2019-07-11 17:19 | Emergency (ER) | payer OTHER ==
--- OUTSIDE RECORDS SUMMARY | 2019-07-11 17:21 | XMS REPORT ---
:1990 Author Organization [facility] Address [address] [place] [address] Care Team Providers Name Role Phone Unavailable Unavailable Unavailable Problems This patient has no known problems. Allergies, Adverse Reactions, Alerts This patient has no known allergies or adverse reactions. Medications This patient has no known medications.
--- OUTSIDE RECORDS SUMMARY | 2019-07-11 17:22 | XMS REPORT ---
:1990 Author Organization [facility] Address Unavailable , Allergies, Adverse Reactions, Alerts Allergy Name Reaction Description Start Date Severity Status Provider PENICILLIN Critical Active Janneth Brown MD Conditions or Problems Problem Name Problem Onset Status Entry Provider Comment Standard Annotate Code Date Date Description Bacterial 616.10 Active Janneth Vaginitis and vaginosis / Stephanie BENOIT vulvovaginitis , unspecified Elevated ALT 790.4 Janneth Nonspecific / Stephanie BENOIT elevation of levels of transaminase or lactic acid dehydrogenase [LDH] Amenorrhea, 626.0 Janneth Absence of secondary / Stephanie BENOIT menstruation BMI 50.0-59.9 Janneth Body Mass / Stephanie BENOIT Index 50.0-59.9, adult Hirsutism 704.1 Janneth Hirsutism / Stephanie BENOIT Infertility, 628.9 Janneth Infertility, secondary, / 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, 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 MORBID OBESITY Janneth Morbid obesity / Stephanie BENOIT Routine V72.31 Janneth Routine gynecological / Stephanie BENOIT gynecological examination examination Screening for V74.5 Janneth Screening venereal / Stephanie BENOIT examination disease for venereal disease Tobacco user 305.1 Janneth Tobacco use / Stephanie BENOIT disorder Weight gain 783.1 Janneth Abnormal Stephanie BENOIT weight gain Medication List Medication Instructions Start Stop Generic NDC Status Provider Patient Date Date Name Instruction METRONIDAZOLE one METRONIDAZOLE 28801613478 Active Janneth Active 500 MG ORAL tablet by Stephanie TABLET mouth twice daily with food PROGESTERONE one PROGESTERONE 19024194897 Active Janneth Active MICRONIZED 200 capsule MICRONIZED Brown MG ORAL CAPSULE by mouth at bedtime x 2 wks Vital Signs Date Name Value Unit Range Description blood pressure, diastolic 89 mm[Hg] BP varma blood pressure, systolic 127 mm[Hg] BP sys height E&M 64 [in_us] Bdy height pulse rate E&M 87 /min Heart rate temperature E&M 98.1 [degF] Body temperature weight E&M 303 [lb_av] Weight Measured Diagnostic Results Date Name Value Unit Range Description Lab Report: CBC With Differential/Platelet, Comp. Metabolic Panel (14), ... - Chemistry prolactin, serum 10.0 ng/mL 4.8-23.3 thyroid stimulating hormone, serum 2.280 u[iU]/mL 0.450-4.500 follicle stimulating hormone, serum 2.1 m[iU]/mL Office Visit: Annual / Family Planning Female RM#25 - Chemistry beta HCG, urine, semiquantitative negative Lab Report: CBC With Differential/Platelet, Comp. Metabolic Panel (14), ... - Chemistry very low density lipoproteins 22 mg/dL 5-40 testosterone, total 22 ng/dL 8-48 hepatitis B surface antigen Negative Negative chloride, serum 99 mmol/L 96-106 urea nitrogen, blood 16 mg/dL 6-20 Lab Report: CBC With Differential/Platelet, Comp. Metabolic Panel (14), ... - Hematology mean corpuscular hemoglobin 34.2 G/DL % 31.5-35.7 concentration, RBC erythrocyte (RBC) count 5.32 X10E6/UL 10*6/mm3 3.77-5.28 Lab Report: CBC With Differential/Platelet, Comp. Metabolic Panel (14), ... - Serology hepatitis C antibody, serum <0.1 0.0-0.9 Lab Report: CBC With Differential/Platelet, Comp. Metabolic Panel (14), ... - Chemistry Absolute Neutrophils 6.1 X10E3/UL 10*3/uL 1.4-7.0 LDL cholesterol, serum 86 mg/dL 0-99 urea nitrogen/creatinine ratio, serum 21 9-23 Lab Report: CBC With Differential/Platelet, Comp. Metabolic Panel (14), ... - Hematology mean corpuscular volume, RBC 84 fL 79-97 Lab Report: CBC With Differential/Platelet, Comp. Metabolic Panel (14), ... - Chemistry HDL cholesterol, serum 61 mg/dL >39 Lab Report: CBC With Differential/Platelet, Comp. Metabolic Panel (14), ... - Hematology monocytes as percent of blood leukocytes 7 % Not Estab. Lab Report: CBC With Differential/Platelet, Comp. Metabolic Panel (14), ... - Chemistry albumin/globulin ratio, serum 1.9 1.2-2.2 creatinine, serum 0.78 mg/dL 0.57-1.00 Lab Report: Vaginitis/Vaginosis, DNA Probe - Urinalysis trichomonas vaginalis, urine Negative Negative Lab Report: CBC With Differential/Platelet, Comp. Metabolic Panel (14), ... - Chemistry cholesterol, serum 169 mg/dL 100-199 Lab Report: Pap IG, rfx HPV ASCU - Lab Human Papillomavirus test result HPVNotTested Lab Report: CBC With Differential/Platelet, Comp. Metabolic Panel (14), ... - Chemistry bilirubin, serum, total 0.5 mg/dL 0.0-1.2 Lab Report: CBC With Differential/Platelet, Comp. Metabolic Panel (14), ... - Hematology Eosinophil Absolute Count 0.1 X10E3/UL 10*3/uL 0.0-0.4 Lab Report: Ct, Ng, Trich vag by GERMAN - Lab chlamydia DNA probe Negative Negative Lab Report: CBC With Differential/Platelet, Comp. Metabolic Panel (14), ... - Chemistry aspartate aminotransferase (SGOT), serum 26 U/L 0-40 Lab Report: CBC With Differential/Platelet, Comp. Metabolic Panel (14), ... - Hematology red blood cell distribution width 14.3 % 12.3-15.4 leukocyte count, blood 9.3 X10E3/UL 10*3/mm3 3.4-10.8 Lab Report: CBC With Differential/Platelet, Comp. Metabolic Panel (14), ... - Chemistry potassium, serum 4.5 mmol/L 3.5-5.2 albumin, serum 4.7 g/dL 3.5-5.5 immature granulocytes, percentage of total cells, 0 % Not Estab. blood Lab Report: CBC With Differential/Platelet, Comp. Metabolic Panel (14), ... - Hematology lymphocyte count, blood, automated 2.4 X10E3/UL 10*3/mm3 0.7- 3.1 Lab Report: Ct, Ng, Trich vag by GERMAN - Microbiology Neisseria gonorrhoeae DNA probe Negative Negative Lab Report: CBC With Differential/Platelet, Comp. Metabolic Panel (14), ... - Hematology hematocrit, blood 44.4 % 34.0-46.6 Lab Report: CBC With Differential/Platelet, Comp. Metabolic Panel (14), ... - Chemistry sodium, serum 137 mmol/L 134-144 Lab Report: CBC With Differential/Platelet, Comp. Metabolic Panel (14), ... - Hematology neutrophils as percent of blood leukocytes 67 % Not Estab. basophils as percent of blood leukocytes 0 % Not Estab. Lab Report: CBC With Differential/Platelet, Comp. Metabolic Panel (14), ... - Serology rapid plasma reagin antibody, serum Non Reactive Non Reactive Lab Report: CBC With Differential/Platelet, Comp. Metabolic Panel (14), ... - Chemistry carbon dioxide, venous blood 22 mmol/L 20-29 triglyceride, serum, fasting 110 mg/dL 0-149 calcium, serum 9.7 mg/dL 8.7-10.2 alanine aminotransferase (SGPT), serum 36 U/L 0-32 Lab Report: CBC With Differential/Platelet, Comp. Metabolic Panel (14), ... - Hematology mean corpuscular hemoglobin, RBC 28.6 pg 26.6-33.0 Lab Report: CBC With Differential/Platelet, Comp. Metabolic Panel (14), ... - Chemistry protein, total, serum 7.2 g/dL 6.0-8.5 alkaline phosphatase, serum 86 U/L 39-117 Lab Report: CBC With Differential/Platelet, Comp. Metabolic Panel (14), ... - Hematology hemoglobin, blood 15.2 g/dL 11.1-15.9 lymphocytes as percent of blood leukocytes 25 % Not Estab. Lab Report: CBC With Differential/Platelet, Comp. Metabolic Panel (14), ... - Chemistry hemoglobin A1C, blood, as % of total hemoglobin 5.2 % 4.8-5.6 Lab Report: CBC With Differential/Platelet, Comp. Metabolic Panel (14), ... - Genetics/fertility eGFR if 120 mL/min/1.73m2 >59 Lab Report: CBC With Differential/Platelet, Comp. Metabolic Panel (14), ... - Hematology basophil count, absolute 0.0 x10E3/uL 0.0-0.2 Lab Report: CBC With Differential/Platelet, Comp. Metabolic Panel (14), ... - Chemistry globulin, serum 2.5 1.5-4.5 Estimated Glomerular Filtration Rate (calc) 105 mL/min/1.73m2 > 59 luteinizing hormone, serum 2.8 m[iU]/mL Lab Report: CBC With Differential/Platelet, Comp. Metabolic Panel (14), ... - Hematology eosinophils as percent of blood leukocytes 1 % Not Estab. Lab Report: CBC With Differential/Platelet, Comp. Metabolic Panel (14), ... - Chemistry blood glucose, random 83 mg/dL 65-99 Lab Report: CBC With Differential/Platelet, Comp. Metabolic Panel (14), ... - Hematology monocyte count, blood, automated 0.7 X10E3/UL 10*3/uL 0.1-0.9 platelet count 337 X10E3/UL 10*3/mm3 150-379 Procedures Code Procedure Name Date Entry Date Standard Description CPT-02500 Urinalysis - - In House 09:07:33 CDT CPT-01407 New Patient Well Exam (18 - 39 Yrs) - [id number] 09:07:33 CDT
--- OUTSIDE RECORDS SUMMARY | 2019-07-11 17:24 | XMS REPORT | Summary of Care ---
:1990 Author Organization [facility] Address [address] [place] [address] Care Team Providers Name Role Phone RupertocandeJodie bedoya [facility] Primary Care Provider Reason for Visit Reason Comments Assessment Encounter Details Date Type Department Care Team Description 03/07/[address] [facility] [address] [place] [address] Allergies Active Allergy Reactions Severity Noted Date Comments Penicillin Nausea and/or Vomiting 01/26/2019 documented as of this encounter (statuses as of 03/07/2019) Medications Medication Sig Dispensed Refills Start Date End Date Status guaifenesin (ROBITUSSIN Take by mouth. 0 Active CHEST CONGESTION ORAL) documented as of this encounter (statuses as of 03/07/2019) Active Problems Problem Noted Date Supervision of high-risk 01/26/2019 Multiparity 01/26/2019 History of section 01/26/2019 Overview: X2 pending ROR Obesity in 01/26/2019 Tobacco use during 01/26/2019 Estimated Date of Delivery Comments Yes 10/06/2019 Based on Ultrasound documented as of this encounter (statuses as of 03/07/2019) Social History Tobacco Use Types Packs/Day Years Used Date Current Every Day Smoker Cigarettes 0.3 Started: 01/26/2007 Smokeless Tobacco: Never Used Alcohol Use Drinks/Week oz/Week Comments Not Currently Alcohol Habits Answer Date Recorded How often do you have a drink containing alcohol? Never 01/26/2019 How many drinks containing alcohol do you have on a typical Not asked day when you are drinking? How often do you have six or more drinks on one occasion? Not asked Estimated Date of Delivery Comments Yes 10/06/2019 Based on Ultrasound Sex Assigned at Date Recorded Not on file Job Start Date Occupation Industry Not on file Not on file Not on file Travel History Travel Start Travel End No recent travel history available. 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 Maternal Medicine Health Maintenance Due Date Last Done Comments PNEUMOCOCCAL 0-64 YEARS COMBINED SERIES (1 of - 1996 PPSV23) DTaP,Tdap,and Td Vaccines (1 - Tdap) 2009 INFLUENZA VACCINE (#1) 2019 PAP SMEAR 01/26/2022 01/26/2019 documented as of this encounter Results Not on filedocumented in this encounter Insurance Payer Benefit Plan / Subscriber ID Effective Phone Address Type Group Dates [facility] MEDICAID OF xxxxxxxxx 2019-Tari [phone] [place] [id number] [place] [address] [facility] [place] [address] Medicaid [employer] [place] [id number] - MANAGED MEDICAID [place], [place] [id number] documented as of this encounter
--- OUTSIDE RECORDS SUMMARY | 2019-07-11 17:25 | XMS REPORT | Summary of Care ---
:1990 Author Organization [facility] Address [address] [place] [address] Care Team Providers Name Role Phone Rupertocandeaureliano Jodie Gayathri [facility] Primary Care Provider Reason for Visit Reason Comments MFM Visit Encounter Details Date Type Department Care Team Description 03/21/2019 Routine [facility]- Mike Mace MD [address] [facility] [id number] [place] [address] Abnormal antibody titer (Primary Dx); Visit [place] [facility], [facility] Supervision of high risk , antepartum; [address] History of section; [place] [id number] Allergies Active Allergy Reactions Severity Noted Date Comments Penicillin Nausea and/or Vomiting 01/26/2019 documented as of this encounter (statuses as of 03/21/2019) Medications Medication Sig Dispensed Refills Start Date End Date Status guaifenesin (ROBITUSSIN Take by mouth. 0 Active CHEST CONGESTION ORAL) documented as of this encounter (statuses as of 03/21/2019) Active Problems Problem Noted Date Supervision of high-risk 01/26/2019 Multiparity 01/26/2019 History of section 01/26/2019 Overview: X2 pending ROR Obesity in 01/26/2019 Tobacco use during 01/26/2019 Estimated Date of Delivery Comments Yes 10/06/2019 Based on Ultrasound documented as of this encounter (statuses as of 03/21/2019) Social History Tobacco Use Types Packs/Day Years [...] of this encounter Last Filed Vital Signs Vital Sign Reading Time Taken Comments Blood Pressure 130/80 03/21/2019 9:31 AM CDT Pulse 89 03/21/2019 9:31 AM CDT Temperature 36.4 C (97.5 F) 03/21/2019 9:31 AM CDT Respiratory Rate 16 03/21/2019 9:31 AM CDT Oxygen Saturation - - Inhaled Oxygen Concentration - - Weight 138.1 kg (304 lb 6 oz) 03/21/2019 9:31 AM CDT Height - - Body Mass Index 52.25 02/24/2019 10:04 AM CDT documented in this encounter Progress Notes Mike Mace MD - 03/21/2019 9:30 AM CDT Chief complaint: Chief Complaint Patient presents with MFM Visit HPI Histories OB History Para Term AB Living 3 2 2 2 SAB TAB Ectopic Multiple Live Births 2 # Outcome Date GA Lbr Levon/2nd Weight Sex Delivery Anes PTL Lv 3 Current 2 Term 11/05/13 38w0d 6 lb 14 oz (3.118 kg) F SEC PERRY 1 Term 07/09/10 40w0d 6 lb 7 oz (2.92 kg) M SEC PERRY Past Medical History: Diagnosis Date Pap smear abnormality of cervix 2008 STD (sexually transmitted disease) 2009 Genital warts Family History Problem Relation Age of Onset Diabetes Mother Diabetes Father Asthma Sister Breast Cancer Maternal Grandmother Diabetes Maternal Grandmother Family Status Relation Name Status Mo Alive Fa Alive Sis Alive MGMo Alive No past surgical history on file. Social History Socioeconomic History Marital status: Single Spouse name: Not on file Number of children: Not on file Years of education: Not on file Highest education level: Not on file Occupational History Not on file Social Needs Financial resource strain: Not on file Food insecurity: Worry: Not on file Inability: Not on file Transportation needs: Medical: Not on file Non-medical: Not on file Tobacco Use Smoking status: Current Every Day Smoker Packs/day: 0.30 Types: Cigarettes Start date: 01/26/2007 Smokeless tobacco: Never Used Substance and Sexual Activity Alcohol use: Not Currently Frequency: Never Drug use: Not Currently Sexual activity: Yes Partners: Male control/protection: None Comment: Last intercourse: 12/25/2018 Lifestyle Physical activity: Days per week: Not on file Minutes per session: Not on file Stress: Not on file Relationships Social connections: Talks on phone: Not on file Gets together: Not on file Attends taoist service: Not on file Active member of club or organization: Not on file Attends meetings of clubs or organizations: Not on file Relationship status: Not on file Intimate partner violence: Fear of current or ex partner: Not on file Emotionally abused: Not on file Physically abused: Not on file Forced sexual activity: Not on file Other Topics Concern Not on file Social History Narrative Patient lives with spouse and 1 child. Patient feels safe at home. Patient has 1 cat. Social History Substance and Sexual Activity Sexual Activity Yes Partners: Male control/protection: None Comment: Last intercourse: 12/25/2018 Labs I have reviewed the patient's labs. Radiology I have reviewed the patient's radiology. Early IUP at 11 weeks Allergies Tyra is allergic to penicillin. Medications Tyra has a current medication list which includes the following prescription(s) : guaifenesin. Review of Systems All other systems reviewed and are negative. BP 130/80 | Pulse 89 | Temp 36.4 C (97.5 F) | Resp 16 | Wt 304 lb 6 oz ( 138.1 kg) | LMP (LMP Unknown) | BMI 52.25 kg/m Pregravid BMI: Could not be calculated Physical Exam Vitals reviewed. Constitutional: Her body habitus is obese. Neck: No tenderness and no mass. Cardiovascular: Regular rate and rhythm. Pulmonary/Chest: Normal inspiratory effort. Abdominal: Abdomen is soft. Neuro/Psychiatric: She has a normal mood and affect. Skin: Skin normal. Breast: Normal left breast and normal right breast PHYSICAL: General Exam: HEENT: Normal Thyroid: Normal Lymph Node: Normal Neurological: Normal Heart: Normal Lungs: Normal Breasts: Normal Abdomen: Normal Skin: Normal Extremities: Normal Pelvic Exam: Membrane status: Intact Uterus: 11 Weeks Assessment/Plan Return to clinic in 3 weeks. This visit involved counseling and coordination of care that comprised more than 50% of the visit time. I spent 25 minute(s) total time with the patient. Of that time, 15 minute(s) was spent on history and exam, and 10 minute(s) was spent counseling the patient regarding risks and benefits of treatment. 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 documented in this encounter Results POCT URINALYSIS W SPECIFIC GRAVITY (03/21/2019 9:33 AM CDT) POCT U SP GRAV . 1.005 - 1.025 mg/dl POCT PH U 5 5 - 8 mg/dl POCT U LEUK EST neg Negative - Negative POCT U NIT neg Negative - Negative POCT U PROT trace Negative - Negative POCT U GLU neg Negative - Negative POCT U KETONE neg Negative - Negative POCT U UROBILI . 0.2 - 1 mg/dl POCT U BILI . Negative - Negative POCT U BLD neg Negative - Negative POCT U COLOR POCT U APPEAR Specimen Urine - URINE, CLEAN CATCH documented in this encounter Visit Diagnoses Diagnosis Abnormal antibody titer - Primary Other and unspecified nonspecific immunological findings Supervision of high risk , antepartum History of section Other postprocedural status Obesity in Obesity complicating , childbirth, or the puerperium, unspecified as to episode of care or not applicable documented in this encounter Insurance Payer Benefit Plan / Subscriber ID Effective Phone Address Type Group Dates [facility] xxxxxxxxx 2019-Tari EDMOND Medicaid HEALTH [employer] [id number] MANAGED MEDICAID [place], [place] MEDICAID [id number] documented as of this encounter"
--- OUTSIDE RECORDS SUMMARY | 2019-07-11 17:25 | XMS REPORT | Summary of Care ---
:1990 Author Organization [facility] Address [address] [place] [address] Care Team Providers Name Role Phone Rupertocandeaureliano Jodie Gayathri [facility] Primary Care Provider Reason for Visit Reason Comments MFM Visit Encounter Details Date Type Department Care Team Description 03/21/2019 Routine [facility]- Mike Mace MD [address] [facility] [address] [facility]S AT [facility] [id number] [place] [address] Abnormal antibody titer (Primary Dx); Visit [place] [facility], [facility] Supervision of high risk , antepartum; [address] History of section; [place], [place] [address] Allergies Active Allergy [...] file Gets together: Not on file Attends hoahaoism service: Not on file Active member of [...] Visit [facility], Huan Rmmaria alejandra [facility] 05/11/2019 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 xxxxxxxxx 2019-Tari EDMOND Medicaid HEALTH [employer] [id number] MANAGED MEDICAID [place] MEDICA[place] [id number] documented as of this encounter"
[2019-07-11] MEDS ORDERED: NA CHLORIDE 0.9% 1,000 ML ONE (17:29)
[2019-07-11 17:47] LABS: Absolute Lymphocytes (CBC) 1.1 K/uL (0.7-4.9); Basophils % 0.5 % (0-1.3); Hematocrit 43.1 % (36.0-45.0); Lymphocytes % 14.3 % (15.3-44.8); MPV 8.5 fL (7.6-11.3); RBC Red Blood Cell Count 5.15 M/uL (3.86-4.86)
[2019-07-11 18:19] LABS: BUN Blood Urea Nitrogen 8 mg/dL (7-18); Bicarbonate 24 mmol/L (21-32); Glucose Level 72 mg/dL (74-106); HCG, Quantitative 8702 mIU/mL (1-3); Potassium 3.8 mmol/L (3.5-5.1); Sodium Level 138 mmol/L (136-145)
--- NOTE | 2019-07-11 20:53 | ER ---
Nurse's Notes [facility] Name: Tyra Villalta Age: 28 yrs Sex: Female : 1990 Arrival Date: 07/11/2019 Time: 17:20 Bed External Waiting [facility] MD: Diagnosis: Abdominal tenderness;Obesity, unspecified; related conditions, unspecified, second trimester; related conditions, unspecified, third trimester;Vomiting;Chest pain, unspecified Presentation: 07/11 17:20 Presenting complaint: Patient states: Chest pain that started about an hour ago, sg reports having the pain in the chest that radiated to both legs then had nausea and vomiting about an hour ago with lower abdominal pain. Transition of care: patient was not received from another setting of care. Onset of symptoms was July 11, 2019. Risk Assessment: Do you want to hurt yourself or someone else? Patient reports no desire to harm self or others. Initial Sepsis Screen: Does the patient meet any 2 criteria? No. Patient's initial sepsis screen is negative. Does the patient have a suspected source of infection? No. Patient's initial sepsis screen is negative. Care prior to arrival: None. 17:20 Method Of Arrival: Ambulatory 17:20 Acuity: BREANNA 3 sg Historical: - Allergies: 17:22 PENICILLINS; sg - PMHx: 17:22 Hypertension; sg - PSHx: 17:22 ; sg - Immunization history:: Adult Immunizations unknown. - Social history:: Smoking status: Patient/guardian denies using tobacco. - Ebola Screening: : Patient negative for fever greater than or equal to 101.5 degrees Fahrenheit, and additional compatible Ebola Virus Disease symptoms Patient denies exposure to infectious person Patient denies travel to an Ebola-affected area in the 21 days before illness onset No symptoms or risks identified at this time. Assessment: 17:21 Reassessment: Dr. Salinas at bedside. 17:32 Reassessment: Pt to L\T\D via stretcher with Jessica ALTMAN and Ginger. L\T\D notified. ED Course: 17:20 Patient arrived in ED. mr 17:21 Arm band placed on. sg 17:22 Triage completed. sg 17:25 Inserted saline lock: 20 gauge in left antecubital area, using aseptic technique. tw2 ,using aseptic technique. unable to T\T\S pt at this time d/t pts condition and need for L\T\D evaluation. Blood collected. 17:28 Felton Salinas MD is Attending Physician. [facility] 20:52 Cipriano Vivar MD is Referral Physician. [facility] Administered Medications: 17:25 Drug: NS 0.9% 1000 ml Route: IV; Rate: 1 bolus; Site: left antecubital; tw2 Outcome: 20:52 Discharge ordered by . [facility] 22:10 Patient left the ED. ar5 Signatures: Tirso Georges RN RN Felton Salinas MD MD cha Rivera, Mary mr Ava Reese RN AGAPITO Clementina Lundberg RN RN tw2 Caty Garcia ar5 Corrections: (The following items were deleted from the chart) 17:34 17:32 Reassessment: Pt to L\T\D via wheelchair with Jessica ALTMAN and Ginger. L\T\D notified. hb hb
--- NOTE | 2019-07-11 20:53 | EDPHYS ---
Physician Documentation [facility] Name: Tyra Villalta Age: 28 yrs Sex: Female : 1990 Arrival Date: 07/11/2019 Time: 17:20 Bed External Waiting Private MD: ED Physician Felton Salinas HPI: 07/11 17:29 This 28 yrs old Female presents to ER via Ambulatory with complaints of 7 zack mths , Vomiting, Chest Pain, Abdominal Pain. 17:29 The patient presents to the emergency department with nausea. Possible causes: unknown. zack Historical: - Allergies: 17:22 PENICILLINS; sg - PMHx: 17:22 Hypertension; sg - PSHx: 17:22 ; sg - Immunization history:: Adult Immunizations unknown. - Social history:: Smoking status: Patient/guardian denies using tobacco. - Ebola Screening: : Patient negative for fever greater than or equal to 101.5 degrees Fahrenheit, and additional compatible Ebola Virus Disease symptoms Patient denies exposure to infectious person Patient denies travel to an Ebola-affected area in the 21 days before illness onset No symptoms or risks identified at this time. ROS: 17:29 Constitutional: Negative for fever, chills, and weight loss, Eyes: Negative for injury, zack pain, redness, and discharge, ENT: Negative for injury, pain, and discharge, Neck: Negative for injury, pain, and swelling, Respiratory: Negative for shortness of breath, cough, wheezing, and pleuritic chest pain, Back: Negative for injury and pain, : Negative for injury, bleeding, discharge, and swelling, MS/Extremity: Negative for injury and deformity, Skin: Negative for injury, rash, and discoloration, Neuro: Negative for headache, weakness, numbness, tingling, and seizure, Psych: Negative for depression, anxiety, suicide ideation, homicidal ideation, and hallucinations, Allergy/Immunology: Negative for hives, rash, and allergies, Endocrine: Negative for neck swelling, polydipsia, polyuria, polyphagia, and marked weight changes, Hematologic/Lymphatic: Negative for swollen nodes, abnormal bleeding, and unusual bruising. 17:29 Cardiovascular: Positive for chest pain. 17:29 Abdomen/GI: Positive for abdominal pain, abdominal distension, of the right lower quadrant and left lower quadrant. Exam: 17:29 Constitutional: This is a well developed, well nourished patient who is awake, alert, zack and in no acute distress. Head/Face: Normocephalic, atraumatic. Eyes: Pupils equal round and reactive to light, extra-ocular motions intact. Lids and lashes normal. Conjunctiva and sclera are non-icteric and not injected. Cornea within normal limits. Periorbital areas with no swelling, redness, or edema. ENT: Nares patent. No nasal discharge, no septal abnormalities noted. Tympanic membranes are normal and external auditory canals are clear. Oropharynx with no redness, swelling, or masses, exudates, or evidence of obstruction, uvula midline. Mucous membranes moist. Neck: Trachea midline, no thyromegaly or masses palpated, and no cervical lymphadenopathy. Supple, full range of motion without nuchal rigidity, or vertebral point tenderness. No Meningismus. Chest/axilla: Normal chest wall appearance and motion. Nontender with no deformity. No lesions are appreciated. Respiratory: Lungs have equal breath sounds bilaterally, clear to auscultation and percussion. No rales, rhonchi or wheezes noted. No increased work of breathing, no retractions or nasal flaring. Abdomen/GI: Soft, non-tender, with normal bowel sounds. No distension or tympany. No guarding or rebound. No evidence of tenderness throughout. Back: No spinal tenderness. No costovertebral tenderness. Full range of motion. Skin: Warm, dry with normal turgor. Normal color with no rashes, no lesions, and no evidence of cellulitis. MS/ Extremity: Pulses equal, no cyanosis. Neurovascular intact. Full, normal range of motion. Neuro: Awake and alert, GCS 15, oriented to person, place, time, and situation. Cranial nerves II-XII grossly intact. Motor strength 5/5 in all extremities. Sensory grossly intact. Cerebellar exam normal. Normal gait. Psych: Awake, alert, with orientation to person, place and time. Behavior, mood, and affect are within normal limits. 17:29 Cardiovascular: Rate: tachycardic, Rhythm: regular, Heart sounds: normal, Edema: is not appreciated, JVD: is not appreciated. 17:31 : CVA tenderness, is absent, Pelvic Exam: External exam: is normal, Gravid exam: [facility] Fundal height: is 38 cm, Bladder: is normal. MDM: 17:28 Patient medically screened. [facility] 17:31 Data reviewed: vital signs, nurses notes. [facility] 07/11 17:29 Order name: Quantitative Hcg [facility] 07/11 17:29 Order name: Abo/rh Typing [facility] 07/11 17:29 Order name: Urine Test (obtain specimen) [facility] 07/11 17:29 Order name: Basic Metabolic Panel [facility] 07/11 17:29 Order name: CBC with Diff [facility] 07/11 17:29 Order name: IV Saline Lock; Complete Time: 17:36 [facility] 07/11 17:29 Order name: NPO [facility] 07/11 17:29 Order name: Oxygen; Complete Time: 17:35 [facility] Administered Medications: 17:25 Drug: NS 0.9% 1000 ml Route: IV; Rate: 1 bolus; Site: left antecubital; tw2 Disposition: 07/11/19 20:52 Discharged to Home. Impression: Abdominal tenderness, Obesity, unspecified, related conditions, unspecified, second trimester, related conditions, unspecified, third trimester, Vomiting, Chest pain, unspecified. - Condition is Stable. - Discharge Instructions: Abdominal Pain, Adult, Abdominal Pain During , Nonspecific Chest Pain, Abdominal Pain, Adult, [id number], Nonspecific Chest Pain, [id number], Third Trimester of , [id number], Pelvic Rest. - Medication Reconciliation Form, Thank You Letter, Antibiotic Education, Prescription Opioid Use form. - Follow up: Private Physician; When: Upon discharge from the Emergency Department; Reason: Recheck today's complaints, Continuance of care, Re-evaluation by your physician. Follow up: Cipriano Vivar MD; When: 2 - 3 days; Reason: Recheck today's complaints, Continuance of care, Re-evaluation by your physician. - Problem is new. - Symptoms have improved. Signatures: Dispatcher [employer] EDTirso Ocampo, Felton Terrell RN, MD MD cha Wise, Tara, RN RN tw2 Caty Garcia ar5 Corrections: (The following items were deleted from the chart) 20:52 20:52 07/11/2019 20:52 Discharged to Home. Impression: Abdominal tenderness; Obesity, zack unspecified; related conditions, unspecified, second trimester; related conditions, unspecified, third trimester. Condition is Stable. Forms are Medication Reconciliation Form, Thank You Letter, Antibiotic Education, Prescription Opioid Use. Follow up: Private Physician; When: Upon discharge from the Emergency Department; Reason: Recheck today's complaints, Continuance of care, Re-evaluation by your physician. Problem is new. Symptoms have improved. zack 20:52 20:52 07/11/2019 20:52 Discharged to Home. Impression: Abdominal tenderness; Obesity, zack unspecified; related conditions, unspecified, second trimester; related conditions, unspecified, third trimester; Vomiting; Chest pain, unspecified. Condition is Stable. Forms are Medication Reconciliation Form, Thank You Letter, Antibiotic Education, Prescription Opioid Use. Follow up: Private Physician; When: Upon discharge from the Emergency Department; Reason: Recheck today's complaints, Continuance of care, Re-evaluation by your physician. Problem is new. Symptoms have improved. zack 22:10 20:52 07/11/2019 20:52 Discharged to Home. Impression: Abdominal tenderness; Obesity, ar5 unspecified; related conditions, unspecified, second trimester; related conditions, unspecified, third trimester; Vomiting; Chest pain, unspecified. Condition is Stable. Forms are Medication Reconciliation Form, Thank You Letter, Antibiotic Education, Prescription Opioid Use. Follow up: Private Physician; When: Upon discharge from the Emergency Department; Reason: Recheck today's complaints, Continuance of care, Re-evaluation by your physician. Follow up: Cipriano Vivar; When: 2 - 3 days; Reason: Recheck today's complaints, Continuance of care, Re-evaluation by your physician. Problem is new. Symptoms have improved. zack
== END 2019-07-11 22:10 | disposition home or self-care (01) ==
LOC: ER 17:19
DX: O26.893 Other specified pregnancy related conditions, third trimester (principal); E66.9 Obesity, unspecified; Z3A.28 28 weeks gestation of pregnancy; Z88.0 Allergy status to penicillin
CPT/HCPCS: 85025; 80048; 36415; 86900; 86901; 84702; 99283; J7030

== ENCOUNTER 2019-10-26 22:25 | Emergency (ER) | payer OTHER ==
--- OUTSIDE RECORDS SUMMARY | 2019-10-26 22:27 | XMS REPORT ---
:1990 Author Organization [facility] t Address [address] [place] [address] Care Team Providers Name Role Phone Unavailable Unavailable Unavailable Problems This patient has no known problems. Allergies, Adverse Reactions, Alerts This patient has no known allergies or adverse reactions. Medications This patient has no known medications.
--- OUTSIDE RECORDS SUMMARY | 2019-10-26 22:28 | XMS REPORT ---
:1990 Author Organization [facility] Address Unavailable , Allergies, Adverse Reactions, Alerts Allergy Name Reaction Description Start Date Severity Status Pr ovider PENICILLIN Critical Active Janneth Harper Conditions or Problems Problem Name Problem Onset Status Entry Provider Comment Standard A nnotate Code Date Date Description Bacterial 616.10 Active Janneth Vaginitis and vaginosis / Stephanie BENOIT vulvovaginiti s , unspecified Elevated ALT 790.4 Janneth Nonspecific / Stephanie BENOIT elevation of levels of transaminase or lactic acid dehydrogenase [LDH] Amenorrhea, 626.0 Active Janneth Absence of secondary / Stephanie BENOIT menstruation BMI 50.0-59.9 Janneth Body Mass / Stephanie BENOIT Index 50.0-59.9, adult Hirsutism 704.1 Active Janneth Hirsutism / Stephanie BENOIT Infertility, 628.9 Janneth Infertility , secondary, / 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, 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 MORBID OBESITY Janneth Morbid ob esity / Stephanie BENOIT Routine V72.31 Janneth Routine gynecological / Stephanie BENOIT gynecolog ical examination examination Screening for V74.5 Janneth Screening venereal / Stephanie BENOIT examination disease for venereal disease Tobacco user 305.1 Janneth Tobacco use / Stephanie BENOIT disorder Weight gain 783.1 Janneth Abnormal / Stephanie BENOIT weight gain Medication List Medication Instructions Start Stop Generic NDC Status Provider Patient Date Date Name Instruct ion METRONIDAZOLE one METRONIDAZOLE 53591030634 Active S ophia Active 500 MG ORAL tablet by Brown TABLET mouth twice daily with food PROGESTERONE one PROGESTERONE 17647742749 Active Sop hia Active MICRONIZED 200 capsule MICRONIZED Brown MG ORAL CAPSULE by mouth at bedtime x 2 wks Vital Signs Date Name Value Unit Range Description blood pressure, diastolic 89 mm[Hg] BP varma blood pressure, systolic 127 mm[Hg] BP sys height E&M 64 [in_us] Bdy height pulse rate E&M 87 /min Heart rate temperature E&M 98.1 [degF] Body temp erature weight E&M 303 [lb_av] Weight Measure d Diagnostic Results Date Name Value Unit Range Description Lab Report: CBC With Differential/Platel et, Comp. Metabolic Panel (14), ... - Chemistry prolactin, serum 10.0 ng/mL 4.8-23.3 thyroid stimulating hormone, serum 2.280 u[iU]/mL 0 .450-4.500 follicle stimulating hormone, serum 2.1 m[iU]/mL Office Visit: Annual / Family Planning F emale RM#25 - Chemistry beta HCG, urine, semiquantitative negative Lab Report: CBC With Differential/Platel et, Comp. Metabolic Panel (14), ... - Chemistry very low density lipoproteins 22 mg/dL 5-40 testosterone, total 22 ng/dL 8-48 hepatitis B surface antigen Negative Negative chloride, serum 99 mmol/L 96-106 urea nitrogen, blood 16 mg/dL 6-20 Lab Report: CBC With Differential/Platel et, Comp. Metabolic Panel (14), ... - Hematology mean corpuscular hemoglobin 34.2 G/DL % 31.5-35. 7 concentration, RBC erythrocyte (RBC) count 5.32 X10E6/UL 10*6/mm3 3.77-5.28 Lab Report: CBC With Differential/Platel et, Comp. Metabolic Panel (14), ... - Serology hepatitis C antibody, serum <0.1 0.0-0.9 Lab Report: CBC With Differential/Platel et, Comp. Metabolic Panel (14), ... - Chemistry Absolute Neutrophils 6.1 X10E3/UL 10*3/uL 1.4-7.0 LDL cholesterol, serum 86 mg/dL 0-99 urea nitrogen/creatinine ratio, serum 21 9-23 Lab Report: CBC With Differential/Platel et, Comp. Metabolic Panel (14), ... - Hematology mean corpuscular volume, RBC 84 fL 79-97 Lab Report: CBC With Differential/Platel et, Comp. Metabolic Panel (14), ... - Chemistry HDL cholesterol, serum 61 mg/dL >39 Lab Report: CBC With Differential/Platel et, Comp. Metabolic Panel (14), ... - Hematology monocytes as percent of blood leukocytes 7 % Not Estab. Lab Report: CBC With Differential/Platel et, Comp. Metabolic Panel (14), ... - Chemistry albumin/globulin ratio, serum 1.9 1.2-2. 2 creatinine, serum 0.78 mg/dL 0.57-1.00 Lab Report: Vaginitis/Vaginosis, DNA Pro be - Urinalysis trichomonas vaginalis, urine Negative Negativ e Lab Report: CBC With Differential/Platel et, Comp. Metabolic Panel (14), ... - Chemistry cholesterol, serum 169 mg/dL 100-199 Lab Report: Pap IG, rfx HPV ASCU - Lab Human Papillomavirus test result HPVNotTested Lab Report: CBC With Differential/Platel et, Comp. Metabolic Panel (14), ... - Chemistry bilirubin, serum, total 0.5 mg/dL 0.0-1.2 Lab Report: CBC With Differential/Platel et, Comp. Metabolic Panel (14), ... - Hematology Eosinophil Absolute Count 0.1 X10E3/UL 10*3/uL 0.0-0.4 Lab Report: Ct, Ng, Trich vag by GERMAN - L ab chlamydia DNA probe Negative Negative Lab Report: CBC With Differential/Platel et, Comp. Metabolic Panel (14), ... - Chemistry aspartate aminotransferase (SGOT), serum 26 U/L 0-40 Lab Report: CBC With Differential/Platel et, Comp. Metabolic Panel (14), ... - Hematology red blood cell distribution width 14.3 % 12 .3-15.4 leukocyte count, blood 9.3 X10E3/UL 10*3/mm3 3.4-10.8 Lab Report: CBC With Differential/Platel et, Comp. Metabolic Panel (14), ... - Chemistry potassium, serum 4.5 mmol/L 3.5-5.2 albumin, serum 4.7 g/dL 3.5-5.5 immature granulocytes, percentage of total cells, 0 % Not Estab. blood Lab Report: CBC With Differential/Platel et, Comp. Metabolic Panel (14), ... - Hematology lymphocyte count, blood, automated 2.4 X10E3/UL 10*3/mm3 0.7-3.1 Lab Report: Ct, Ng, Trich vag by GERMAN - M icrobiology Neisseria gonorrhoeae DNA probe Negative Nega tive Lab Report: CBC With Differential/Platel et, Comp. Metabolic Panel (14), ... - Hematology hematocrit, blood 44.4 % 34.0-46.6 Lab Report: CBC With Differential/Platel et, Comp. Metabolic Panel (14), ... - Chemistry sodium, serum 137 mmol/L 134-144 Lab Report: CBC With Differential/Platel et, Comp. Metabolic Panel (14), ... - Hematology neutrophils as percent of blood leukocytes 67 % Not Estab. basophils as percent of blood leukocytes 0 % Not Estab. Lab Report: CBC With Differential/Platel et, Comp. Metabolic Panel (14), ... - Serology rapid plasma reagin antibody, serum Non Reactive Non Reactive Lab Report: CBC With Differential/Platel et, Comp. Metabolic Panel (14), ... - Chemistry carbon dioxide, venous blood 22 mmol/L 20-29 triglyceride, serum, fasting 110 mg/dL 0-149 calcium, serum 9.7 mg/dL 8.7-10.2 alanine aminotransferase (SGPT), serum 36 U/L 0-32 Lab Report: CBC With Differential/Platel et, Comp. Metabolic Panel (14), ... - Hematology mean corpuscular hemoglobin, RBC 28.6 pg 26. 6-33.0 Lab Report: CBC With Differential/Platel et, Comp. Metabolic Panel (14), ... - Chemistry protein, total, serum 7.2 g/dL 6.0-8.5 alkaline phosphatase, serum 86 U/L 39-117 Lab Report: CBC With Differential/Platel et, Comp. Metabolic Panel (14), ... - Hematology hemoglobin, blood 15.2 g/dL 11.1-15.9 lymphocytes as percent of blood leukocytes 25 % Not Estab. Lab Report: CBC With Differential/Platel et, Comp. Metabolic Panel (14), ... - Chemistry hemoglobin A1C, blood, as % of total hemoglobin 5.2 % 4.8-5.6 Lab Report: CBC With Differential/Platel et, Comp. Metabolic Panel (14), ... - Genetics/fertility eGFR if 120 mL/min/1.73m2 >59 Lab Report: CBC With Differential/Platel et, Comp. Metabolic Panel (14), ... - Hematology basophil count, absolute 0.0 x10E3/uL 0.0-0.2 Lab Report: CBC With Differential/Platel et, Comp. Metabolic Panel (14), ... - Chemistry globulin, serum 2.5 1.5-4.5 Estimated Glomerular Filtration Rate (calc) 105 mL/ min/1.73m2 >59 luteinizing hormone, serum 2.8 m[iU]/mL Lab Report: CBC With Differential/Platel et, Comp. Metabolic Panel (14), ... - Hematology eosinophils as percent of blood leukocytes 1 % Not Estab. Lab Report: CBC With Differential/Platel et, Comp. Metabolic Panel (14), ... - Chemistry blood glucose, random 83 mg/dL 65-99 Lab Report: CBC With Differential/Platel et, Comp. Metabolic Panel (14), ... - Hematology monocyte count, blood, automated 0.7 X10E3/UL 10*3/uL 0 .1-0.9 platelet count 337 X10E3/UL 10*3/mm3 150-379 Procedures Code Procedure Name Date Entry Date Standard Desc ription CPT-69408 Urinalysis - - In House 09:07:33 CDT CPT-32003 New Patient Well Exam ( - 39 Yrs) - [address] 09:07:33 CDT
--- OUTSIDE RECORDS SUMMARY | 2019-10-26 22:33 | XMS REPORT | Summary of Care ---
:1990 Author Organization [facility] Address [address] [place] [address] Care Team Providers Name Role Phone Jodie Godwin QUETA Primary Care Provider [phone] Reason for Referral (Routine) Status Reason Specialty Diagnoses / Referred By Referred To Procedures Contact Contact New Request Maternal Diagnoses Supervision of high risk in third trimester Tato, Medicine Procedures CONSULT MATERNAL MEDICINE ULTRASOUND Preferred Location: NIECY Feng [address] [place] [address] Reason for Visit Reason Comments Care Encounter Details Date Type Department Care Team Description 08/04/2019 [facility] vision of high risk in third trimester (Primary Dx); Visit NIECY Feng History of section; [address] Multiparity; [facility] Maternal tobacco use in third trimester [id number] [facility] [phone] [place], [place] [id number] Allergies Active Allergy Reactions Severity Noted Date Comments Penicillin Nausea and/or Vomiting 01/26/2019 documented as of this encounter (statuses as of 08/04/2019) Medications Medication Sig Dispensed Refills Start Date End Date Status guaiFENesin 100 mg/5 mL Take 5 mL by 355 mL 0 07/12/2019 Active solutionIndications: mouth every 4 Influenza B (four) hours. documented as of this encounter (statuses as of 08/04/2019) Active Problems Problem Noted Date URI (upper respiratory infection) 07/11/2019 Generalized body aches 07/11/2019 Influenza B 07/11/2019 Screening, , isoimmunization 04/18/2019 BMI 50.0-59.9, adult 04/18/2019 BMI 50.0-59.9, adult 04/18/2019 Supervision of high-risk 01/26/2019 Multiparity 01/26/2019 History of section 01/26/2019 Overview: X2 pending ROR Obesity in 01/26/2019 Tobacco use during 01/26/2019 Estimated Date of Delivery Comments Yes 10/06/2019 Based on Ultrasound documented as of this encounter (statuses as of 08/04/2019) Resolved Problems Problem Noted Date Resolved Date Chest pain 07/11/2019 07/11/2019 documented as of this encounter (statuses as of 08/04/2019) Immunizations Name Administration Dates Next Due TDAP (ADACEL) VACCINE 07/21/2019 documented as of this encounter Social History Tobacco Use Types Packs/Day Years Used Date Current Every Day Smoker Cigarettes 0.3 Sta rted: 01/26/2007 Smokeless Tobacco: Never Used Comments: 1 pack every 4-6 days Alcohol Use Drinks/Week oz/Week Comments Not Currently Alcohol Habits Answer Date Recorded How often do you have a drink containing alcohol? Never 01/26/2019 How many drinks containing alcohol do you have on a typical Not asked day when you are drinking? How often do you have six or more drinks on one occasion? No t asked Estimated Date of Delivery Comments Yes 10/06/2019 Based on Ultrasound Sex Assigned at Date Recorded Not on file Job Start Date Occupation Industry Not on file Not on file Not on file Travel History Travel Start Travel End No recent travel history available. documented as of this encounter Last Filed Vital Signs Vital Sign Reading Time Taken Comments Blood Pressure 137/90 08/04/2019 9:33 AM FORKLIFT DRIVER Pulse 92 08/04/2019 9:33 AM FORKLIFT DRIVER Temperature 36.8 C (98.3 F) 08/04/2019 9:33 AM FORKLIFT DRIVER Respiratory Rate 16 08/04/2019 9:33 AM FORKLIFT DRIVER Oxygen Saturation - - Inhaled Oxygen Concentration - - Weight 144.7 kg (319 lb) 08/04/2019 9:33 AM FORKLIFT DRIVER Height 162.6 cm (5' 4") 08/04/2019 9:33 AM FORKLIFT DRIVER Body Mass Index 54.76 08/04/2019 9:33 AM FORKLIFT DRIVER documented in this encounter Progress Notes Wen Sotomayor RN - 08/04/2019 9:15 AM CSTPt has been scheduled for ERCS on 09/29/2019 @ 39.0wks as requested, BMI noted. Jodie Conway QUETA - 08/04/2019 9:15 AM CST Chief complaint: Chief Complaint Patient presents with Care HPI CC: Follow Up Visit Tyra Villalta is a 28 year old, , /White female. No LMP recorded (lmp unknown). Patient is . She is 31w0d with an intrauterine . Her estimated date of delivery is 10/06/2019, by Ultrasound. She has no complaints today. She reports +FM and denies contractions, LOF and bleeding today. Histories OB History Para Term AB Living 3 2 2 2 SAB TAB Ectopic Multiple Live Births 2 # Outcome Date GA Lbr Levon/2nd Weight Sex Delivery Anes PTL Lv 3 Current 2 Term 11/05/13 38w0d 6 lb 14 oz (3.118 kg) F SEC PERRY 1 Term 07/09/10 40w0d 6 lb 7 oz (2.92 kg) M SEC PERRY Past Medical History: Diagnosis Date Chest pain 07/11/2019 Pap smear abnormality of cervix 2008 STD [...] Start date: 01/26/2007 Smokeless tobacco: Never Used Tobacco comment: 1 pack every 4-6 days Substance and Sexual Activity Alcohol use: Not Currently Frequency: Never Drug use: Not Currently Sexual activity: Yes Partners: Male control/protection: None Comment: Last intercourse: 12/25/2018 Lifestyle Physical activity: Days per week: Not on file Minutes per session: Not on file Stress: Not on file Relationships Social connections: Talks on phone: Not on file Gets together: Not on file Attends zoroastrianism service: Not on file Active member of [...] control/protection: None Comment: Last intercourse: 12/25/2018 Labs No new labs and Routine Visit on 07/21/2019 Component Date Value Syphilis IgG/IgM 07/21/2019 Non-reactive HIV 1/2 Ag-Ab with Reflex 07/21/2019 Negative HIV Semi-quantitative 07/21/2019 0.06 POCT U SP GRAV 07/21/2019 . POCT PH U 07/21/2019 . POCT U LEUK EST 07/21/2019 . POCT U NIT 07/21/2019 . POCT U PROT 07/21/2019 Trace POCT U GLU 07/21/2019 Trace POCT U KETONE 07/21/2019 . POCT U UROBILI 07/21/2019 . POCT U BILI 07/21/2019 . POCT U BLD 07/21/2019 . Admission on 07/11/2019, Discharged on 07/12/2019 Component Date Value NA 07/12/2019 133* K 07/12/2019 4.3 CL 07/12/2019 102 CO2 TOTAL 07/12/2019 21* AGAP 07/12/2019 10 BUN 07/12/2019 10 GLUCOSE 07/12/2019 93 CREATININE 07/12/2019 0.44* CALCIUM 07/12/2019 9.3 eGFR Calculation (Non-Af* 07/12/2019 170.3 eGFR Calculation (Jennifer* 07/12/2019 206.4 Influenza A virus by PCR 07/11/2019 Negative Influenza B virus by PCR 07/11/2019 Positive* RSV by PCR 07/11/2019 Negative WBC 07/12/2019 7.89 RBC 07/12/2019 4.77 HGB 07/12/2019 13.3 HCT 07/12/2019 40.3 MCV 07/12/2019 84.5 MCH 07/12/2019 27.9 MCHC 07/12/2019 33.0 RDW-SD 07/12/2019 44.0 RDW-CV 07/12/2019 14.3 PLT 07/12/2019 192 MPV 07/12/2019 9.8 NRBC/100 WBC 07/12/2019 0.0 NRBC x10^3 07/12/2019 <0.01 GRAN MAT (NEUT) % 07/12/2019 80.9 IMM GRAN % 07/12/2019 0.90 LYMPH % 07/12/2019 9.0 MONO % 07/12/2019 8.7 EOS % 07/12/2019 0.1 BASO % 07/12/2019 0.4 GRAN MAT x10^3(ANC) 07/12/2019 6.38 IMM GRAN x10^3 07/12/2019 0.07* LYMPH x10^3 07/12/2019 0.71* MONO x10^3 07/12/2019 0.69 EOS x10^3 07/12/2019 <0.03* BASO x10^3 07/12/2019 0.03 Routine Visit on 07/11/2019 Component Date Value POCT U SP GRAV 07/11/2019 . POCT PH U 07/11/2019 . POCT U LEUK EST 07/11/2019 . POCT U NIT 07/11/2019 . POCT U PROT 07/11/2019 Trace POCT U GLU 07/11/2019 Neg POCT U KETONE 07/11/2019 . POCT U UROBILI 07/11/2019 . POCT U BILI 07/11/2019 . POCT U BLD 07/11/2019 . ABO & RH 07/11/2019 O POSITIVE IAT 07/11/2019 Positive GLUC 1 HR 07/11/2019 113* WBC 07/11/2019 5.79 RBC 07/11/2019 4.93 HGB 07/11/2019 14.1 HCT 07/11/2019 42.5 MCV 07/11/2019 86.2 MCH 07/11/2019 28.6 MCHC 07/11/2019 33.2 RDW-SD 07/11/2019 45.3 RDW-CV 07/11/2019 14.4 PLT 07/11/2019 220 MPV 07/11/2019 11.0 NRBC/100 WBC 07/11/2019 0.0 NRBC x10^3 07/11/2019 <0.01 GRAN MAT (NEUT) % 07/11/2019 78.0 IMM GRAN % 07/11/2019 0.90 LYMPH % 07/11/2019 11.1 MONO % 07/11/2019 9.3 EOS % 07/11/2019 0.2 BASO % 07/11/2019 0.5 GRAN MAT x10^3(ANC) 07/11/2019 4.52 IMM GRAN x10^3 07/11/2019 0.05 LYMPH x10^3 07/11/2019 0.64* MONO x10^3 07/11/2019 0.54 EOS x10^3 07/11/2019 <0.03* BASO x10^3 07/11/2019 0.03 ANTIBODY ID 07/11/2019 Value:Anti-Fya Anti-K TITERED AB 07/11/2019 Ab Titered: K AB TITER 07/11/2019 Antibody Titer: 1 TITERED AB 07/11/2019 Ab Titered: Fya AB TITER 07/11/2019 Antibody Titer: <1 Transfusion Medicine DMT* 07/11/2019 See Narrative Routine Visit on 06/27/2019 Component Date Value POCT U SP GRAV 06/27/2019 . POCT PH U 06/27/2019 . POCT U LEUK EST 06/27/2019 . POCT U NIT 06/27/2019 . POCT U PROT 06/27/2019 Trace POCT U GLU 06/27/2019 Neg POCT U KETONE 06/27/2019 . POCT U UROBILI 06/27/2019 . POCT U BILI 06/27/2019 . POCT U BLD 06/27/2019 . Routine Visit on 06/06/2019 Component Date Value POCT PH U 06/06/2019 7 POCT U LEUK EST 06/06/2019 trace POCT U NIT 06/06/2019 neg POCT U PROT 06/06/2019 trace POCT U GLU 06/06/2019 neg POCT U KETONE 06/06/2019 small POCT U BLD 06/06/2019 neg Routine Visit on 05/17/2019 Component Date Value POCT U SP GRAV 05/17/2019 . POCT PH U 05/17/2019 . POCT U LEUK EST 05/17/2019 . POCT U NIT 05/17/2019 . POCT U PROT 05/17/2019 Trace POCT U GLU 05/17/2019 Neg POCT U KETONE 05/17/2019 . POCT U UROBILI 05/17/2019 . POCT U BILI 05/17/2019 . POCT U BLD 05/17/2019 . ABO & RH 05/17/2019 O POSITIVE IAT 05/17/2019 Positive RACE 05/17/2019 WEIGHT 05/17/2019 315.125 GEST. AGE 1105/17/2019 19,5 INS. DEP 05/17/2019 No US DATE 05/17/2019 [id number] METHOD 05/17/2019 US MULT GEST 05/17/2019 No NTD HX 05/17/2019 No INITAL OR REPEAT 05/17/2019 Initial Testing SMOKER 05/17/2019 Yes INHIBIN 05/17/2019 131.0 AFP-MS 05/17/2019 58.6 ESTRIOL 05/17/2019 1.88 BHCG DOWNS 05/17/2019 16,513.0 AFP-MS MoM 05/17/2019 2.16 BHCG MoM 05/17/2019 1.39 INHIBIN MoM 05/17/2019 0.76 E3 MoM 05/17/2019 1.16 EQ AGE RSK 05/17/2019 < 15.0 DS APR 05/17/2019 1:842 DS INTERP 05/17/2019 See Note DS RSK 05/17/2019 ~ 1:37400 DS SCRN 05/17/2019 Negative TRISOMY 18 05/17/2019 See Note ES RSK 05/17/2019 ~ 1:33365 ES SCRN 05/17/2019 Negative OSB INTERP 05/17/2019 See Note OSB RSK 05/17/2019 1:328 OSB SCRN 05/17/2019 Negative INTERPRETATION 05/17/2019 N ANTIBODY ID 05/17/2019 Value:Anti-Fya Anti-K TITERED AB 05/17/2019 Ab Titered: Fya AB TITER 05/17/2019 Antibody Titer: 1 Transfusion Medicine DMT* 05/17/2019 See Narrative Radiology No new radiology. Allergies Tyra is allergic to penicillin. Medications Tyra has a current medication list which includes the following prescription(s): guaifenesin. Review of Systems Constitutional: Negative. HENT: Negative. Eyes: Negative. Respiratory: Negative. Breasts: Negative. Cardiovascular: Negative. Gastrointestinal: Negative. Genitourinary: Negative. Musculoskeletal: Negative. Skin: Negative. Neurological: Negative. Psychiatric/Behavioral: Negative. Endocrine: Endocrine negative BP 137/90 | Pulse 92 | Temp 36.8 C (98.3 F) (Oral) | Resp 16 | Ht 5' 4" (1.626 m) | Wt 319 lb (144.7 kg) | LMP (LMP Unknown) | BMI 54.76 kg/m Pregravid BMI: 51.6 Physical Exam PHYSICAL: General Exam: Neurological: Normal Abdomen: Normal gravid Extremities: Normal Pelvic Exam: Uterus: 34 Weeks Assessment/Plan Return to clinic in 2 weeks. Denies zika virus risk, signs and symptoms such as fever,rash,joint pain, conjunctivitis (red eyes),muscle pain, headaches; outside [place] travel to areas affected by zika, and FOB exposure to zika. Educated on use of mosquito repellent. Supervision of high risk in third trimester (primary encounter diagnosis) History of section Multiparity Comment: routine Plan: Workup, Blood Bank, POCT URINALYSIS W/O SPECIFIC GRAVITY, Workup, Blood Bank, Workup, Blood Bank, CONSULT MATERNAL MEDICINE ULTRASOUND Preferred Location: [place] Maternal tobacco use in third trimester Comment: Plan: smoking cessatione ncouraged This visit did not involve counseling and coordination that comprised more than 50% of the visit time. NIECY Mckeon 08/04/2019 9:57 AM LIFT DRIVER documented in this encounter Plan of Treatment Date Type Specialty Care Team Description 08/17/2019 Routine OB Satellites Jodie Godwin, Visit NIECY [address] [address] [phone] 09/29/2019 Hospital Encounter Obstetrics Ana Li MD [address] [place], [place] [address]d. [place], [place] [address] 09/29/2019 Surgery Surgery Faculty, Ob SECTION [address] [place] [address] Name Type Priority Associated Diagnoses Order S chedule Workup, Blood LAB Routine Supervision of [facility] h risk 3 Occurrences starting Bank in third 0 until trimester 02/02/2020 Health Maintenance Due Date Last Done Comments INFLUENZA VACCINE (#1) 2020 Postponed from 03/13/2019 (Refused) PNEUMOCOCCAL 0-64 YEARS COMBINED 07/21/2020 Postponed from 1996 SERIES (1 of 1 - PPSV23) (Refuse d) PAP SMEAR 01/26/2022 01/26/2019 DTaP,Tdap,and Td Vaccines (2 - 07/21/2029 07/21/2019 Td) documented as of this encounter Procedures Procedure Name Priority Date/Time Associated Diagnosis Comme nts POCT URINALYSIS W/O Routine 08/04/2019 9:38 Supervision of [facility] Results for this SPECIFIC GRAVITY AM FORKLIFT DRIVER risk in proced ure are in third trimester the results section. documented in this encounter Results POCT URINALYSIS W/O SPECIFIC GRAVITY (08/04/2019 9:38 AM FORKLIFT DRIVER) Pathologist Sig nature POCT PH U 5 5 - 8 mg/dl POCT U LEUK EST trace Negative - Negative POCT U NIT neg Negative - Negative POCT U PROT trace Negative - Negative POCT U GLU neg Negative - Negative POCT U KETONE neg Negative - Negative POCT U BLD neg Negative - Negative Specimen Urine - URINE, CLEAN CATCH documented in this encounter Visit Diagnoses Diagnosis Supervision of high risk in th ird trimester - Primary Unspecified high-risk History of section Other postprocedural status Multiparity Maternal tobacco use in third trimester documented in this encounter Insurance Payer Benefit Plan / Subscriber ID Effective Phone Address T [facility] xxxxxxxxx 2019-Prese [address] Medic aid HEALTH CHOICE - HEALTH [place] [id number] 1 MANAGED MEDICAID [place], [place] [phone] Guarantor Name Account Type Relation to Date of Phone Bill ing Patient Address Tyra Villalta Personal/Family Self 1990 [phone] [address] [place] ([address]) [address] [place] [address] documented as of this encounter
--- OUTSIDE RECORDS SUMMARY | 2019-10-26 22:33 | XMS REPORT | Summary of Care ---
:[address] [facility] Address [address] [place] [address] Care Team Providers Name Role Phone Jodie Godwin QUETA Primary Care Provider [phone] Reason for Referral (Routine) Status Reason Specialty Diagnoses / Referred By Referred To Procedures Contact Contact New Request Maternal Diagnoses Supervision of high risk in third trimester Tato, Medicine Procedures CONSULT MATERNAL MEDICINE ULTRASOUND Preferred Location: NIECY Feng [address] [place] [address] Reason for Visit Reason Comments Care Encounter Details Date Type Department Care Team Description [facility]/04/2019 [facility]win vision of high risk in third trimester (Primary Dx); Visit NIECY Feng History of section; [address] [place] [address] Multiparity; [facility] Maternal tobacco use in third trimester [id number] [facility] [phone] [place], [place] [address] Allergies Active Allergy Reactions Severity Noted Date [...] Comments Blood Pressure 137/90 08/04/2019 9:33 AM COUNTY HOME DEMONSTRATOR Pulse 92 08/04/2019 9:33 AM COUNTY HOME DEMONSTRATOR Temperature 36.8 C (98.3 F) 08/04/2019 9:33 AM COUNTY HOME DEMONSTRATOR Respiratory Rate 16 08/04/2019 9:33 AM COUNTY HOME DEMONSTRATOR Oxygen Saturation - - Inhaled Oxygen Concentration - - Weight 144.7 kg (319 lb) 08/04/2019 9:33 AM COUNTY HOME DEMONSTRATOR Height 162.6 cm (5' 4") 08/04/2019 9:33 AM COUNTY HOME DEMONSTRATOR Body Mass Index 54.76 08/04/2019 9:33 AM COUNTY HOME DEMONSTRATOR documented in this encounter Progress Notes Jodie Godwin, WHCNP - 08/04/2019 9:15 AM CST Chief complaint: [...] pain 07/11/2019 Pap smear abnormality of cervix 2009 STD (sexually transmitted disease) 2009 Genital warts [...] file Gets together: Not on file Attends mosque service: Not on file Active member of [...] 19,5 INS. DEP 05/17/2019 No US DATE 05/17/[id number] METHOD 05/17/2019 US MULT GEST 05/17/2019 No [...] 05/17/2019 See Note DS RSK 05/17/2019 ~ 1:72045 DS SCRN 05/17/2019 Negative TRISOMY 18 05/17/2019 See Note ES RSK 05/17/2019 ~ 1:81894 ES SCRN 05/17/2019 Negative OSB INTERP 05/17/2019 [...] Bank, CONSULT MATERNAL MEDICINE ULTRASOUND Preferred Location: [place] Maternal tobacco use in third trimester Comment: Plan: smoking cessatione ncouraged This visit did not involve counseling and coordination that comprised more than 50% of the visit time. NIECY Mckeon 08/04/2019 9:57 AM TY HOME DEMONSTRATOR documented in this encounter Plan of Treatment Name Type Priority Associated Diagnoses Order S chedule Workup, Blood LAB Routine Supervision of hig h risk 3 Occurrences starting Bank in [...] URINALYSIS W/O Routine 08/04/2019 9:38 Supervision of mt gh Results for this SPECIFIC GRAVITY AM COUNTY HOME DEMONSTRATOR risk in proced ure are in third trimester the results section. documented in this encounter Results POCT URINALYSIS W/O SPECIFIC GRAVITY (08/04/2019 9:38 AM COUNTY HOME DEMONSTRATOR) Pathologist Sig nature POCT PH U 5 [...] / Subscriber ID Effective Phone Address T ype Group Dates [facility] xxxxxxxxx 2019-Prese P[address]. BOX Medic aid HEALTH CHOICE - HE[place] nt [id number] 1 MANAGED MEDICAID [place], [place]ID [phone] Guarantor Name Account Type Relation to Date of Phone Bill ing Patient Address Tyra Villalta Personal/Family Self 1990 [address] [facility] [address] [place] [address] documented as of this encounter
--- OUTSIDE RECORDS SUMMARY | 2019-10-26 22:34 | XMS REPORT | Summary of Care ---
:1990 Author Organization [facility] Address [address] [place] [address] Care Team Providers Name Role Phone Jodie Godwin [facility] Primary Care Provider [phone] Reason for Referral (Routine) Status Reason Specialty Diagnoses / Procedures Referred By Eric corey To Contact Contact New Request Maternal Diagnoses Screening, , isoimmunization [place], Medicine Procedures CONSULT MATERNAL MEDICINE ULTRASOUND Preferred Location: Anahi Trinh QUETA [address] [place] [address] Reason for Visit Reason Comments ULTRASOUND Encounter Details Date Type Department Care Team Description 08/09/2019 Telephone [facility]- Jodie Godwin PRE GNANCY ULTRASOUND Anahi Trinh QUETA [address] [facility] [address] [place] [address] [place] [address] [place] [address] [phone] Allergies Active Allergy Reactions Severity Noted Date Comments Penicillin Nausea and/or Vomiting 01/26/2019 documented as of this encounter (statuses as of 08/09/2019) Medications Medication Sig Dispensed Refills Start Date End Date Status guaiFENesin 100 mg/5 mL Take 5 mL by 355 mL 0 07/12/2019 Active solutionIndications: mouth every 4 Influenza B (four) hours. documented as of this encounter (statuses as of 08/09/2019) Active Problems Problem Noted Date URI (upper [...] as of this encounter (statuses as of 08/09/2019) Resolved Problems Problem Noted Date Resolved Date Chest pain 07/11/2019 07/11/2019 documented as of this encounter (statuses as of 08/09/2019) Immunizations Name Administration Dates Next Due TDAP [...] 08/17/2019 Routine OB Satellites Jodie Godwin, Visit [facility] [address] [place], [place] [address] [phone] 09/29/2019 Hospital Encounter Obstetrics Ana Li MD [address] [place] [address] 77 555 09/29/2019 Surgery Surgery Faculty, Ob SECTION [address] [place] [address] Health Maintenance Due Date Last Done Comments INFLUENZA VACCINE (#1) 2020 Postponed from 03/13/2019 (Refused) PNEUMOCOCCAL 0-64 YEARS COMBINED 07/21/2020 Postponed from 1996 SERIES (1 of 1 - PPSV23) (Refuse d) PAP SMEAR 01/26/2022 01/26/2019 DTaP,Tdap,and Td Vaccines (2 - 07/21/2029 07/21/2019 Td) documented as of this encounter Results Not on filedocumented in this encounter Visit Diagnoses Diagnosis Screening, , isoimmunization - Primary screening for isoimmunization documented in this encounter Insurance Payer Benefit Plan / Subscriber ID Effective Phone Address T [facility] xxxxxxxxx 2019-Tari [address]. BOX Medic aid HEALTH CHOICE - HEALTH CHOICE nt [id number] 1 [facility] MEDICAID [place], [place] MEDICAID [phone] documented as of this encounter
--- OUTSIDE RECORDS SUMMARY | 2019-10-26 22:34 | XMS REPORT | Summary of Care ---
:1990 Author Organization [facility] Address [address] [place] [address] Care Team Providers Name Role Phone Jodie Godwin [facility] Primary Care Provider [phone] Reason for Visit Reason Comments LAB Encounter Details Date Type Department Care Team Description 08/05/2019 Telephone [facility]- A Jodie Hebert, LAB [address] [place] [address] [facility] [phone] [place], [place] [address] Allergies Active Allergy Reactions Severity Noted Date [...] 08/17/2019 Routine OB Satellites Jodie Godwin, Visit [facility] [address] [place], [place] [address] [phone] 09/29/2019 Hospital Encounter Obstetrics Ana Li MD [address] [place] [address] 77 555 09/29/2019 Surgery Surgery Faculty, Ob SECTION [address] [place] [address] Health Maintenance Due Date Last Done Comments [...] / Subscriber ID Effective Phone Address T [facility] xxxxxxxxx 2019-Tari P.OMery BOX Medic aid HEALTH CHOICE - HEALTH CHOICE nt [id number] 1 MANAGED MEDICAID [place] [phone] documented as of this encounter
--- OUTSIDE RECORDS SUMMARY | 2019-10-26 22:34 | XMS REPORT | Summary of Care ---
:1990 Author Organization [facility] Address [address] [place] [address] Care Team Providers Name Role Phone Jodie Godwin [facility] Primary Care Provider [phone] Reason for Visit Reason Comments LAB Encounter Details Date Type Department Care Team Description 08/05/2019 Telephone [facility]- A Jodie Hebert, LAB [address] [place] [address] [address] [facility] [phone] [place], [place] [address] Allergies Active Allergy Reactions Severity Noted Date Comments Penicillin Nausea and/or Vomiting 01/26/2019 documented as of this encounter (statuses as of 08/05/2019) Medications Medication Sig Dispensed Refills Start Date End Date Status guaiFENesin 100 mg/5 mL Take 5 mL by 355 mL 0 07/12/2019 Active solutionIndications: mouth every 4 Influenza B (four) hours. documented as of this encounter (statuses as of 08/05/2019) Active Problems Problem Noted Date URI (upper [...] as of this encounter (statuses as of 08/05/2019) Resolved Problems Problem Noted Date Resolved Date Chest pain 07/11/2019 07/11/2019 documented as of this encounter (statuses as of 08/05/2019) Immunizations Name Administration Dates Next Due TDAP [...] Treatment Date Type Specialty Care Team Description 08/09/2019 Financial Assistance Advisor Visit Maternal Medicine 08/17/2019 Routine OB Satellites Jodie Godwin Visit C, [facility] [address] [place], [place] [address] [phone] 09/29/2019 Hospital Encounter Obstetrics Ana Li MD [address] [place] [address] 77 555 09/29/2019 Surgery Surgery Faculty, Ob SECTION [address] [place] [address] Health Maintenance Due Date Last Done Comments [...] / Subscriber ID Effective Phone Address T [facility] xxxxxxxxx 2019-Tari [address] BOX Medic aid HEALTH CHOICE - HEALTH CHOICE nt [id number] 1 MANAGED MEDICAID [place] [phone] documented as of this encounter
--- OUTSIDE RECORDS SUMMARY | 2019-10-26 22:34 | XMS REPORT | Summary of Care ---
:1990 Author Organization [facility] Address [address] [place] [address] Care Team Providers Name Role Phone Jodie Godwin QUETA Primary Care Provider [phone] Reason for Referral (Routine) Status Reason Specialty Diagnoses / Referred By Referred To Procedures Contact Contact Closed Maternal Diagnoses Supervision of high risk in third trimester Tato, Medicine Procedures CONSULT MATERNAL MEDICINE ULTRASOUND Preferred Location: NIECY Feng [address] [place] [address] Reason for Visit Reason Comments Care Encounter Details Date Type Department Care Team Description 08/04/2019 [facility] Godwin vision of high risk in third trimester (Primary Dx); Visit NIECY Feng History of section; [address] [place] [address] Multiparity; [facility] Maternal tobacco use in third trimester [phone] [facility] [phone] [place], [place] [address] Allergies Active Allergy Reactions Severity Noted Date [...] Comments Blood Pressure 137/90 08/04/2019 9:33 AM LOGGING TRUCK DRIVER Pulse 92 08/04/2019 9:33 AM LOGGING TRUCK DRIVER Temperature 36.8 C (98.3 F) 08/04/2019 9:33 AM LOGGING TRUCK DRIVER Respiratory Rate 16 08/04/2019 9:33 AM LOGGING TRUCK DRIVER Oxygen Saturation - - Inhaled Oxygen Concentration - - Weight 144.7 kg (319 lb) 08/04/2019 9:33 AM LOGGING TRUCK DRIVER Height 162.6 cm (5' 4") 08/04/2019 9:33 AM LOGGING TRUCK DRIVER Body Mass Index 54.76 08/04/2019 9:33 AM LOGGING TRUCK DRIVER documented in this encounter Progress Notes [...] file Gets together: Not on file Attends amish service: Not on file Active member of [...] INS. DEP 05/17/2019 No US DATE 05/17/2019 [id number] METHOD 05/17/2019 US MULT GEST 05/17/2019 No [...] 05/17/2019 See Note DS RSK 05/17/2019 ~ 1:87446 DS SCRN 05/17/2019 Negative TRISOMY 18 05/17/2019 See Note ES RSK 05/17/2019 ~ 1:63883 ES SCRN 05/17/2019 Negative OSB INTERP 05/17/2019 [...] Bank, CONSULT MATERNAL MEDICINE ULTRASOUND Preferred Location: [place] Maternal tobacco use in third trimester Comment: Plan: smoking cessatione ncouraged This visit did not involve counseling and coordination that comprised more than 50% of the visit time. NIECY Mckeon 08/04/2019 9:57 AM ING TRUCK DRIVER documented in this encounter Plan of Treatment Date Type Specialty Care Team Description 08/17/2019 Routine OB Satellites Jodie Godwin, Visit NIECY [address] [place] [address] [phone] 09/29/2019 Hospital Encounter Obstetrics Ana Li MD [address] [place] [address] [address] [place], [place] [address] 09/29/2019 Surgery Surgery Faculty, Ob SECTION [address] [place] [address] Name Type Priority Associated Diagnoses Order S chedule Workup, Blood LAB Routine Supervision of [facility] h risk 3 Occurrences starting Bank in third 0 until trimester 02/02/2020, 1 c ompleted TRANSFUSION MEDICINE DMT LAB Routine ONC E for 1 Occurrences INTERP starting 2019 until 0 Health Maintenance Due Date Last Done Comments INFLUENZA VACCINE (#1) 2020 Postponed from 03/13/2019 (Refused) PNEUMOCOCCAL 0-64 YEARS COMBINED 07/21/2020 Postponed from 1996 SERIES (1 of 1 - PPSV23) (Refuse d) PAP SMEAR 01/26/2022 01/26/2019 DTaP,Tdap,and Td Vaccines (2 - 07/21/2029 07/21/2019 Td) documented as of this encounter Procedures Procedure Name Priority Date/Time Associated Comments Diagnosis ANTIBODY TITER INTERPS Routine 08/04/2019 9:42 R esults for this AM LOGGING TRUCK DRIVER procedure are i n the results section. ANTIBODY TITER INTERPS Routine 08/04/2019 9:42 R esults for this AM LOGGING TRUCK DRIVER procedure are i n the results section. HB ABO GROUPING Routine 08/04/2019 9:42 Supervision of high R esults for this AM LOGGING TRUCK DRIVER risk in procedure are in third trimester the results section. PANEL IDENTIFICATION Routine 08/04/2019 9:42 Res ults for this AM LOGGING TRUCK DRIVER procedure are i n the results section. POCT URINALYSIS W/O Routine 08/04/2019 9:38 Supervision of hi gh Results for this SPECIFIC GRAVITY AM LOGGING TRUCK DRIVER risk in proced ure are in third trimester the results section. documented in this encounter Results ANTIBODY TITER INTERPS (08/04/2019 9:42 AM LOGGING TRUCK DRIVER) Pathologist Sig nature TITERED AB Ab Titered: Fya LAB Comment: Performed at [facility] Laboratory Services - [facility] Blood Bank [address] [place] [address] Toll Free: [phone] CLIA No. [id number] AB TITER Antibody Titer: 4 LAB Comment: Performed at [facility] Laboratory Services - [facility] Blood [place] [address] Toll Free: [phone] CLIA No. [id number] Specimen Performing Organization Address City/[facility] Hospital[facility] Phone Number [facility] LAB ANTIBODY TITER INTERPS (08/04/2019 9:42 AM LOGGING TRUCK DRIVER) Pathologist Sig nature TITERED AB Ab Titered: K LAB Comment: Performed at [facility] Laboratory Services - [facility] Blood Bank [address] [place] [address] Toll Free: [phone] CLIA No. [id number] AB TITER Antibody Titer: 8 LAB Comment: Performed at [facility] Laboratory Services [facility] Blood [place] [address] Toll Free: [phone] CLIA No. [id number] Specimen Performing Organization Address [facility] Phone Number [facility] LAB PANEL IDENTIFICATION (08/04/2019 9:42 AM LOGGING TRUCK DRIVER) Pathologist Sig nature ANTIBODY ID Anti-Fya LAB Anti-K Comment: Performed at [facility] Laboratory Services - [facility] Blood [place] [address] Toll Free: CLIA No. [id number] Specimen Performing Organization Address [facility] Phone Number [facility] LAB Workup, Blood Bank (08/04/2019 9:42 AM LOGGING TRUCK DRIVER) Pathologist Sig nature ABO & RH O POSITIVE LAB Comment: Performed at [facility] Laboratory Services - [facility] Blood [place] [address] Toll Free: [phone] CLIA No. [id number] IAT Positive LAB Comment: Performed at [facility] Laboratory Services [facility] Blood [place] [address] Toll Free: CLIA No. [id number] Specimen Blood - VENOUS Performing Organization Address City/[facility] Phone Number [facility] LAB POCT URINALYSIS W/O SPECIFIC GRAVITY (08/04/2019 9:38 AM LOGGING TRUCK DRIVER) Pathologist Sig nature POCT PH U [...] Diagnoses Diagnosis Supervision of high risk in ird trimester - Primary Unspecified high-risk History of section Other postprocedural status Multiparity Maternal tobacco use in third trimester documented in this encounter Insurance Payer Benefit Plan / Subscriber ID Effective Phone Address T ype Group Dates [facility] xxxxxxxxx 2019-Prese P[address]O. BOX Medic aid HEALTH CHOICE - HEALTH CHOICE nt [id number] 1 MANAGED MEDICAID [place], [place] [phone] Guarantor Name Account Type Relation to Date of Phone Bill ing Patient Address Tyra Villalta Personal/Family Self 1990 [address] [facility] [address] [place] [address] documented as of this encounter
--- OUTSIDE RECORDS SUMMARY | 2019-10-26 22:34 | XMS REPORT | Summary of Care ---
:[address] [facility] Address [address] [place] [address] Care Team Providers Name Role Phone Jodie Godwin [facility] Primary Care Provider [phone] Reason for Visit Reason Comments LAB Encounter Details Date Type Department Care Team Description 08/05/2019 Telephone [facility]- A Jodie Hebert, LAB [address] [place] [address] [address] [facility] [phone] [place], [place] [address] Allergies Active Allergy Reactions Severity Noted [...] 08/17/2019 Routine OB Satellites Jodie Godwin, Visit [facility] [address] [place], [place] [address] [phone] 09/29/2019 Hospital Encounter Obstetrics Ana Li MD [address] [place] [address] 77 555 09/29/2019 Surgery Surgery Faculty, Ob SECTION [address] [place] [address] Health Maintenance Due Date Last Done Comments [...] / Subscriber ID Effective Phone Address T [facility] xxxxxxxxx 2019-Tari P.OMery BOX Medic aid HEALTH CHOICE - HEALTH CHOICE nt [id number] 1 MANAGED MEDICAID [place], [place]ID [phone] documented as of this encounter
--- OUTSIDE RECORDS SUMMARY | 2019-10-26 22:35 | XMS REPORT | Summary of Care ---
:1990 Author Organization [facility] Address [address] [place] [address] Care Team Providers Name Role Phone Jodie Godwin [facility] Primary Care Provider [phone] Reason for Visit Reason Comments Care Encounter Details Date Type Department Care Team Description 09/01/2019 Routine [facility]P- Tato, [place] vision of high risk , antepartum (Primary Dx); Visit Anahi Trihn QUETA Multiparity; [address] History of section; [facility] Obesity in ; [phone] MEHRDAD A Maternal tobacco use in third trimester [phone] [place] [address] Allergies Active Allergy Reactions Severity Noted Date Comments Penicillin Nausea and/or Vomiting 01/26/2019 documented as of this encounter (statuses as of 09/01/2019) Medications Medication Sig Dispensed Refills Start Date End Date Status guaiFENesin 100 mg/5 mL Take 5 mL by 355 mL 0 07/12/2019 Active solutionIndications: mouth every 4 Influenza B (four) hours. documented as of this encounter (statuses as of 09/01/2019) Active Problems Problem Noted Date URI (upper [...] as of this encounter (statuses as of 09/01/2019) Resolved Problems Problem Noted Date Resolved Date Chest pain 07/11/2019 07/11/2019 documented as of this encounter (statuses as of 09/01/2019) Immunizations Name Administration Dates Next Due TDAP [...] Sign Reading Time Taken Comments Blood Pressure 92/64 09/01/2019 8:31 AM FISHER TRA[facility] LINE Pulse 81 09/01/2019 8:25 AM [facility] Temperature 36.2 C (97.2 F) 09/01/2019 8:25 AM [facility] Respiratory Rate 16 09/01/2019 8:25 AM [facility] Oxygen Saturation - - Inhaled Oxygen Concentration - - Weight 147.6 kg (325 lb 6 oz) 09/01/2019 8:25 AM [facility] Height 162.6 cm (5' 4") 09/01/2019 8:25 AM [facility] Body Mass Index 55.85 09/01/2019 8:25 AM [facility] documented in this encounter Progress Notes Jodie Godwin, WHCNP - 09/01/2019 8:00 AM CST Chief complaint: Chief Complaint Patient presents with Care HPI CC: Follow Up Visit Tyra Villalta is a 28 year old, , /White female. No LMP recorded (lmp unknown). Patient is . She is 35w0d with an intrauterine . Her estimated date [...] file Gets together: Not on file Attends orthodox service: Not on file Active member of [...] No new labs and Routine Visit on 08/04/2019 Component Date Value POCT PH U 08/04/2019 5 POCT U LEUK EST 08/04/2019 trace POCT U NIT 08/04/2019 neg POCT U PROT 08/04/2019 trace POCT U GLU 08/04/2019 neg POCT U KETONE 08/04/2019 neg POCT U BLD 08/04/2019 neg ABO & RH 08/04/2019 O POSITIVE IAT 08/04/2019 Positive ANTIBODY ID 08/04/2019 Value:Anti-Fya Anti-K TITERED AB 08/04/2019 Ab Titered: K AB TITER 08/04/2019 Antibody Titer: 8 TITERED AB 08/04/2019 Ab Titered: Fya AB TITER 08/04/2019 Antibody Titer: 4 Transfusion Medicine DMT* 08/05/2019 See Narrative Routine Visit on 07/21/2019 Component Date Value [...] 06/06/2019 small POCT U BLD 06/06/2019 neg Radiology Radiology pending. Allergies Tyra is allergic to penicillin. Medications Tyra has a current medication list which includes the following prescription(s): guaifenesin. Review of Systems Constitutional: Negative. HENT: Negative. Eyes: Negative. Respiratory: Negative. Breasts: Negative. Cardiovascular: Negative. Gastrointestinal: Negative. Genitourinary: Negative. Musculoskeletal: Negative. Skin: Negative. Neurological: Negative. Psychiatric/Behavioral: Negative. Endocrine: Endocrine negative BP 92/64 (BP Location: Left arm, Patient Position: Sitting, BP CUFF SIZE: Adult Large) | Pulse 81 | Temp 36.2 C (97.2 F) (Oral) | Resp 16 | Ht 5' 4" (1.626 m) | Wt 325 lb 6 oz (147.6 kg) | LMP (LMP Unknown) | BMI 55.85 kg/m Pregravid BMI: 51.6 Physical Exam PHYSICAL: General Exam: Neurological: Normal Abdomen: Normal gravid Extremities: Normal Pelvic Exam: Uterus: 38 Weeks Assessment/Plan Return to clinic in 1 weeks. Denies zika virus risk, signs and symptoms such as fever,rash,joint pain, conjunctivitis (red eyes),muscle pain, headaches; outside [place] travel to areas affected by zika, and FOB exposure to zika. Educated on use of mosquito repellent. Supervision of high risk , antepartum (primary encounter diagnosis) Multiparity History of section Comment: routine Plan: POCT URINALYSIS W SPECIFIC GRAVITY, CBC WITH DIFF, GROUP B STREPTOCOCCUS BY PCR Obesity in Comment: see bmi Plan: BMI discussed, appropriate weight gain, sensible diet, and exercise Maternal tobacco use in third trimester Comment: Plan: smoking cessation encouraged This visit did not involve counseling and coordination that comprised more than 50% of the visit time. NIECY Mckeon 09/01/2019 9:05 AM ER [facility] documented in this encounter Plan of Treatment Date Type Specialty Care Team Description 09/08/2019 Routine OB Satellites RupertocandeJodie bedoya, Visit [facility] [address] [place], [place] [address] [phone] 09/29/2019 Hospital Encounter Obstetrics Ana Li MD [address] [place] [address]. [place], [place] [address] 09/29/2019 Surgery Surgery Faculty, Ob SECTION [address] [place] [address] Name Type Priority Associated Diagnoses Order S chedule CBC WITH DIFF LAB Routine Supervision of high risk Ex pected: 09/08/2019, , antepartum s: 09/01/2020 GROUP B STREPTOCOCCUS BY LAB Routine Supervision of h igh risk Expected: 09/08/2019, PCR , antepartum s: 09/01/2020 Health Maintenance Due Date Last Done Comments INFLUENZA VACCINE (#1) 2020 Postponed from 03/13/2019 (Refused) PNEUMOCOCCAL 0-64 YEARS COMBINED 07/21/2020 Postponed from 1996 SERIES (1 of 1 - PPSV23) (Refuse d) PAP SMEAR 01/26/2022 01/26/2019 DTaP,Tdap,and Td Vaccines (2 - 07/21/2029 07/21/2019 Td) documented as of this encounter Procedures Procedure Name Priority Date/Time Associated Diagnosis Comme nts POCT URINALYSIS Routine 09/01/2019 8:27 AM Supervision of [facility] Results for this [facility] risk , procedure ar e in antepartum the results section. documented in this encounter Results POCT URINALYSIS W SPECIFIC GRAVITY (09/01/2019 8:27 AM [facility]) Pathologist Sig nature POCT U SP GRAV . 1.005 - 1.025 mg/dl POCT PH U . 5 - 8 mg/dl POCT U LEUK EST . Negative - Negative POCT U NIT . Negative - Negative POCT U PROT Trace Negative - Negative POCT U GLU Neg Negative - Negative POCT U KETONE . Negative - Negative POCT U UROBILI . 0.2 - 1 mg/dl POCT U BILI . Negative - Negative POCT U BLD . Negative - Negative POCT U COLOR POCT U APPEAR Specimen Urine - URINE, CLEAN CATCH documented in this encounter Visit Diagnoses Diagnosis Supervision of high risk , ante - Primary Multiparity History of section Other postprocedural status Obesity in Obesity complicating , childbir th, or the puerperium, unspecified as to episode of care or not applicable Maternal tobacco use in third trimester documented in this encounter Insurance Payer Benefit Plan / Subscriber ID Effective Phone Address T [facility] xxxxxxxxx 2019-Tari EDMOND Medic aid HEALTH CHOICE - HEALTH [place] nt [id number] 1 [facility] MEDICAID [place], [place] MED[place]ID [id number] Guarantor Name Account Type Relation to Date of Phone Bill ing Patient Address Tyra Villalta Personal/Family Self 1990 [address] ([address]) [address] [place] [address] documented as of this encounter
--- OUTSIDE RECORDS SUMMARY | 2019-10-26 22:35 | XMS REPORT | Summary of Care ---
:1990 Author Organization [facility] Address [address] [place] [address] Care Team Providers Name Role Phone Jodie Godwin [facility] Primary Care Provider [phone] Encounter Details Date Type Department Care Team Description 08/09/[address] [facility]CHP- A Jodie Hebert, [address] [place] [address] [address] [phone] [place], [place] [address] Allergies Active Allergy Reactions Severity Noted [...] 08/17/2019 Routine OB Satellites Jodie Godwin, Visit [facility] [address] [place] [place], [place] [address] [phone] 09/29/2019 Hospital Encounter Obstetrics Ana Li MD [address] [place] [address] 09/29/2019 Surgery Surgery Faculty, Ob SECTION [address] [place] [address] Health Maintenance Due Date Last Done Comments [...] / Subscriber ID Effective Phone Address T [facility] Group [facility] xxxxxxxxx 2019-Tari [place] BOX Medic aid HEALTH CHOICE - HEALTH CHOICE nt [id number] 1 MANAGED MEDICAID [place], [place] [phone] documented as of this encounter
--- OUTSIDE RECORDS SUMMARY | 2019-10-26 22:35 | XMS REPORT | Summary of Care ---
:1990 Author Organization [facility] Address [address] [place] [address] Care Team Providers Name Role Phone Jodie Godwin [facility] Primary Care Provider [phone] Reason for Referral (Routine) Status Reason Specialty Diagnoses / Referred By Referred To Procedures Contact Contact New Request Maternal Diagnoses Supervision of high risk in third trimester Tato, Medicine Procedures CONSULT MATERNAL MEDICINE ULTRASOUND Preferred Location: Anahi Trinh QUETA [address] [facility] [place] [address] Reason for Visit Reason Comments Care Encounter Details Date Type Department Care Team Description 08/17/2019 [facility] vision of high risk in third trimester (Primary Dx); Visit Anahi Trinh QUETA Multiparity; [address] [place] [address] History of section; [place], [place] ST Obesity in ; [phone] MEHRDAD A Maternal tobacco use in third trimester [phone] [place] [address] Allergies Active Allergy Reactions Severity Noted Date Comments Penicillin Nausea and/or Vomiting 01/26/2019 documented as of this encounter (statuses as of 08/17/2019) Medications Medication Sig Dispensed Refills Start Date End Date Status guaiFENesin 100 mg/5 mL Take 5 mL by 355 mL 0 07/12/2019 Active solutionIndications: mouth every 4 Influenza B (four) hours. documented as of this encounter (statuses as of 08/17/2019) Active Problems Problem Noted Date URI (upper [...] as of this encounter (statuses as of 08/17/2019) Resolved Problems Problem Noted Date Resolved Date Chest pain 07/11/2019 07/11/2019 documented as of this encounter (statuses as of 08/17/2019) Immunizations Name Administration Dates Next Due TDAP [...] Sign Reading Time Taken Comments Blood Pressure 118/74 08/17/2019 11:31 AM RESERVATIONS SPECIALIST Pulse 120 08/17/2019 11:20 AM RESERVATIONS SPECIALIST Temperature 36.7 C (98 F) 08/17/2019 11:20 AM RESERVATIONS SPECIALIST Respiratory Rate 16 08/17/2019 11:20 AM RESERVATIONS SPECIALIST Oxygen Saturation - - Inhaled Oxygen Concentration - - Weight 147.5 kg (325 lb 2 oz) 08/17/2019 11:20 AM RESERVATIONS SPECIALIST Height 162.6 cm (5' 4") 08/17/2019 11:20 AM RESERVATIONS SPECIALIST Body Mass Index 55.81 08/17/2019 11:20 AM RESERVATIONS SPECIALIST documented in this encounter Progress Notes Jodie Godwin, WHCNP - 08/17/2019 11:00 AM CST Chief complaint: Chief Complaint Patient presents with Care HPI CC: Follow Up Visit Tyra Villalta is a 28 year old, , /White female. No LMP recorded (lmp unknown). Patient is . She is 32w6d with an intrauterine . Her estimated date [...] file Gets together: Not on file Attends mormonism service: Not on file Active member of [...] Comment: Last intercourse: 12/25/2018 Labs No new labs, Routine Visit on 08/04/2019 Component Date Value [...] 06/06/2019 small POCT U BLD 06/06/2019 neg and Routine Visit on 08/04/2019 Component Date [...] 19,5 INS. DEP 05/17/2019 No US DATE 05/17/2019201823664724 METHOD 05/17/2019 US MULT GEST 05/17/2019 No [...] 05/17/2019 See Note DS RSK 05/17/2019 ~ 1:28398 DS SCRN 05/17/2019 Negative TRISOMY 18 05/17/2019 See Note ES RSK 05/17/2019 ~ 1:16619 ES SCRN 05/17/2019 Negative OSB INTERP 05/17/2019 See Note OSB RSK 05/17/2019 1:328 OSB SCRN 05/17/2019 Negative INTERPRETATION 05/17/2019 N ANTIBODY ID 05/17/2019 Value:Anti-Fya Anti-K TITERED AB 05/17/2019 Ab Titered: Fya AB TITER 05/17/2019 Antibody Titer: 1 Transfusion Medicine DMT* 05/17/2019 See Narrative Routine Visit on 04/11/2019 Component Date Value ABO & RH 04/11/2019 O POSITIVE IAT 04/11/2019 Positive TITERED AB 04/11/2019 Ab Titered: Fya AB TITER 04/11/2019 Antibody Titer: <1 ANTIBODY ID 04/11/2019 Value:Anti-Fya Anti-K TITERED AB 04/11/2019 Ab Titered: K AB TITER 04/11/2019 Antibody Titer: 1 Admission on 04/07/2019, Discharged on 04/07/2019 Component Date Value APPEARANCE 04/07/2019 Hazy* COLOR 04/07/2019 Yellow PH 04/07/2019 5.0 SP GRAVITY 04/07/2019 1.026 GLU U QUAL 04/07/2019 Normal BLOOD 04/07/2019 2+* KETONES 04/07/2019 20 mg/dL* PROTEIN 04/07/2019 Negative UROBILIN 04/07/2019 Normal BILIRUBIN 04/07/2019 Negative NITRITE 04/07/2019 Negative LEUK AURA 04/07/2019 Negative RBC/HPF 04/07/2019 1 WBC/HPF 04/07/2019 1 BACTERIA 04/07/2019 Negative MUCOUS 04/07/2019 Slight* SQ EPITH 04/07/2019 5 WBC 04/07/2019 10.27 RBC 04/07/2019 5.21 HGB 04/07/2019 14.3 HCT 04/07/2019 43.5 MCV 04/07/2019 83.5 MCH 04/07/2019 27.4 MCHC 04/07/2019 32.9 RDW-SD 04/07/2019 41.2 RDW-CV 04/07/2019 13.5 PLT 04/07/2019 248 MPV 04/07/2019 9.9 NRBC/100 WBC 04/07/2019 0.0 NRBC x10^3 04/07/2019 <0.01 GRAN MAT (NEUT) % 04/07/2019 75.6 IMM GRAN % 04/07/2019 0.80 LYMPH % 04/07/2019 17.4 MONO % 04/07/2019 5.1 EOS % 04/07/2019 0.8 BASO % 04/07/2019 0.3 GRAN MAT x10^3(ANC) 04/07/2019 7.77* IMM GRAN x10^3 04/07/2019 0.08* LYMPH x10^3 04/07/2019 1.79 MONO x10^3 04/07/2019 0.52 EOS x10^3 04/07/2019 0.08 BASO x10^3 04/07/2019 0.03 BETA HCG 04/07/2019 30,170.00 Routine Visit on 03/21/2019 Component Date Value POCT U SP GRAV 03/21/2019 . POCT PH U 03/21/2019 5 POCT U LEUK EST 03/21/2019 neg POCT U NIT 03/21/2019 neg POCT U PROT 03/21/2019 trace POCT U GLU 03/21/2019 neg POCT U KETONE 03/21/2019 neg POCT U UROBILI 03/21/2019 . POCT U BILI 03/21/2019 . POCT U BLD 03/21/2019 neg There may be more visits with results that are not included. Radiology No new radiology. Allergies Tyra is allergic to penicillin. Medications Tyra has a current medication list which includes the following prescription(s): guaifenesin. Review of Systems Constitutional: Negative. HENT: Negative. Eyes: Negative. Respiratory: Negative. Breasts: Negative. Cardiovascular: Negative. Gastrointestinal: Negative. Genitourinary: Negative. Musculoskeletal: Negative. Skin: Negative. Neurological: Negative. Psychiatric/Behavioral: Negative. Endocrine: Endocrine negative BP 118/74 (BP Location: Right arm, Patient Position: Sitting, BP CUFF SIZE: Adult Large) | Pulse 120 | Temp 36.7 C (98 F) (Oral) | Resp 16 | Ht 5' 4" (1.626 m) | Wt 325 lb 2 oz (147.5 kg) | LMP (LMP Unknown) | BMI 55.81 kg/m Pregravid BMI: 51.6 Physical Exam PHYSICAL: General Exam: Neurological: Normal Abdomen: Normal gravid Extremities: Normal Pelvic Exam: Uterus: 35 Weeks Assessment/Plan Return to clinic in 2 weeks. Denies zika virus risk, signs and symptoms such as fever,rash,joint pain, conjunctivitis (red eyes),muscle pain, headaches; outside [place] travel to areas affected by zika, and FOB exposure to zika. Educated on use of mosquito repellent. Supervision of high risk in third trimester (primary encounter diagnosis) Multiparity History of section Comment: routine Plan: return in 2 weeks Obesity in Comment: see bmi Plan: limit weight gain and sensible diet. Maternal tobacco use in third trimester Comment: Plan: smoking cessation encouraged This visit did not involve counseling and coordination that comprised more than 50% of the visit time. NIECY Mckeon 08/17/2019 11:42 AM RVATIONS SPECIALIST documented in this encounter Plan of Treatment Date Type Specialty Care Team Description 09/01/2019 Routine OB Satellites Jodie Godwin, Visit [facility] [address] [place], [place] [address] [phone] 09/29/2019 Hospital Encounter Obstetrics Ana Li MD [address] [place] [address] 09/29/2019 Surgery Surgery Faculty, Ob SECTION [address] [place] [address] Health Maintenance Due Date Last Done Comments INFLUENZA VACCINE (#1) 2020 Postponed from 03/13/2019 (Refused) PNEUMOCOCCAL 0-64 YEARS COMBINED 07/21/2020 Postponed from 1996 SERIES (1 of 1 - PPSV23) (Refuse d) PAP SMEAR 01/26/2022 01/26/2019 DTaP,Tdap,and Td Vaccines (2 - 07/21/2029 07/21/2019 Td) documented as of this encounter Results Not on filedocumented in this encounter Visit Diagnoses Diagnosis Supervision of high risk in th ird trimester - Primary Unspecified high-risk Multiparity History of section Other postprocedural status Obesity in Obesity complicating , childbir th, or the puerperium, unspecified as to episode of care or not applicable Maternal tobacco use in third trimester documented in this encounter Insurance Payer Benefit Plan / Subscriber ID Effective Phone Address T [facility] xxxxxxxxx 2019-Tari PAmy EDMOND Medic aid HEALTH CHOICE - HEALTH CHOICE nt [id number] 1 MANAGED MEDICAID [place], [place] MEDICAID [id number] Guarantor Name Account Type Relation to Date of Phone Bill ing Patient Address ZeelandTyra mejia Personal/Family Self 1990 [address] [place] ([address]) [address] [place] [address] documented as of this encounter
--- OUTSIDE RECORDS SUMMARY | 2019-10-26 22:35 | XMS REPORT | Summary of Care ---
:1990 Author Organization [facility] Address [address] [place] [address] Care Team Providers Name Role Phone Jodie Godwin [facility] Primary Care Provider [phone] Reason for Visit Reason Comments ULTRASOUND (Routine) Status Reason Specialty Diagnoses / Referred By Referred To Procedures Contact Contact Closed Maternal Diagnoses Supervision of high risk in third trimester Tato, Medicine Procedures CONSULT MATERNAL MEDICINE ULTRASOUND Preferred Location: [place] Jodie Trinh QUETA [address] [place] [address] Encounter Details Date Type Department Care Team Description 09/01/2019 Professional Services Consultant Visit [facility] Nestor Godwin [facility] [address] [place], [place] [address] Previous delivery, antepartum c ondition or complication; Ultrasound- Allen Patricio MD [address] [place] [address] Obesity complicating in third trimester [place] [address] [place] [address] Allergies Active Allergy Reactions Severity [...] Care Team Description 09/08/2019 Routine OB Satellites Jodie Godwin, Visit [facility] [address] [place], [place] [address] [phone] 09/29/2019 Hospital Encounter Obstetrics Ana Li MD [address] [place], [place] [address]. [place], [place] [address] 09/29/2019 Surgery Surgery Faculty, Ob SECTION [address] [place] [address] Health Maintenance Due Date Last Done Comments INFLUENZA VACCINE (#1) 2020 Postponed from 03/13/2019 (Refused) PNEUMOCOCCAL 0-64 YEARS COMBINED 07/21/2020 Postponed from 1996 SERIES (1 of 1 - PPSV23) (Refuse d) PAP SMEAR 01/26/2022 01/26/2019 DTaP,Tdap,and Td Vaccines (2 - 07/21/2029 07/21/2019 Td) documented as of this encounter Results Not on filedocumented in this encounter Visit Diagnoses Diagnosis Previous delivery, antepartum c ondition or complication Obesity complicating in third trimester Obesity complicating , childbir th, or the puerperium, antepartum condition or complication documented in this encounter Insurance Payer Benefit Plan / Subscriber ID Effective Phone Address T [facility] Group [facility] xxxxxxxxx 2019-Tari P.OMery BOX Medic aid HEALTH CHOICE - HEALTH CHOICE nt [id number] 1 MANAGED MEDICAID [place], [place] MEDICAID [id number] Guarantor Name Account Type Relation to Date of Phone Bill ing Patient Address Tyra Villalta Personal/Family Self 1990 [address] ([address]) [address] [place] [address] documented as of this encounter
--- OUTSIDE RECORDS SUMMARY | 2019-10-26 22:36 | XMS REPORT | Summary of Care ---
:1990 Author Organization [facility] Address [address] [place] [address] Care Team Providers Name Role Phone Jodie Godwin [facility] Primary Care Provider Reason for Visit Reason Comments Care Encounter Details Date Type Department Care Team Description 09/08/2019 Routine [facility] RMCHP- Tato, Nelson vision of high risk , antepartum (Primary Dx); Visit Anahi Trinh QUETA Multiparity; [address] History of section; [facility] [place] [phone] [facility] [phone] [place] [address] Allergies Active Allergy Reactions Severity Noted Date Comments Penicillin Nausea and/or Vomiting 01/26/2019 documented as of this encounter (statuses as of 09/08/2019) Medications Medication Sig Dispensed Refills Start Date End Date Status guaiFENesin 100 mg/5 mL Take 5 mL by 355 mL 0 07/12/2019 Active solutionIndications: mouth every 4 Influenza B (four) hours. documented as of this encounter (statuses as of 09/08/2019) Active Problems Problem Noted Date URI (upper [...] as of this encounter (statuses as of 09/08/2019) Resolved Problems Problem Noted Date Resolved Date Chest pain 07/11/2019 07/11/2019 documented as of this encounter (statuses as of 09/08/2019) Immunizations Name Administration Dates Next Due TDAP [...] Sign Reading Time Taken Comments Blood Pressure 131/83 09/08/2019 9:34 AM DEPUTY CLERK OF SUPERIOR COURT Pulse 85 09/08/2019 9:34 AM DEPUTY CLERK OF SUPERIOR [facility] Temperature 36.1 C (97 F) 09/08/2019 9:34 AM DEPUTY CLERK OF SUPERIOR COURT Respiratory Rate 16 09/08/2019 9:34 AM DEPUTY CLERK OF SUPERIOR COURT Oxygen Saturation - - Inhaled Oxygen Concentration - - Weight 149 kg (328 lb 8 oz) 09/08/2019 9:34 AM DEPUTY CLERK OF SUPERIOR COURT Height 162.6 cm (5' 4") 09/08/2019 9:34 AM DEPUTY CLERK OF SUPERIOR COURT Body Mass Index 56.39 09/08/2019 9:34 AM DEPUTY CLERK OF SUPERIOR COURT documented in this encounter Progress Notes Jodie Godwin, WHCNP - 09/08/2019 9:00 AM CST Chief complaint: Chief Complaint Patient presents with Care HPI CC: Follow Up Visit Tyra Villalta is a 28 year old, , /White female. No LMP recorded (lmp unknown). Patient is . She is 36w0d with an intrauterine . Her estimated date of delivery is 10/06/2019, by Ultrasound. She has no complaints today. She reports +FM and denies contractions, LOF and bleeding today.Histories OB History Para Term AB Living 3 [...] file Gets together: Not on file Attends yarsani service: Not on file Active member of [...] Labs No new labs, Routine Visit on 09/01/2019 Component Date Value POCT U SP GRAV 09/01/2019 . POCT PH U 09/01/2019 . POCT U LEUK EST 09/01/2019 . POCT U NIT 09/01/2019 . POCT U PROT 09/01/2019 Trace POCT U GLU 09/01/2019 Neg POCT U KETONE 09/01/2019 . POCT U UROBILI 09/01/2019 . POCT U BILI 09/01/2019 . POCT U BLD 09/01/2019 . and Routine Visit on 09/01/2019 Component Date Value POCT U SP GRAV 09/01/2019 . POCT PH U 09/01/2019 . POCT U LEUK EST 09/01/2019 . POCT U NIT 09/01/2019 . POCT U PROT 09/01/2019 Trace POCT U GLU 09/01/2019 Neg POCT U KETONE 09/01/2019 . POCT U UROBILI 09/01/2019 . POCT U BILI 09/01/2019 . POCT U BLD 09/01/2019 . Routine Visit on 08/04/2019 Component Date Value [...] 06/27/2019 . POCT U BLD 06/27/2019 . Radiology No new radiology. Allergies Tyra is allergic to penicillin. Medications Tyra has a current medication list which includes the following prescription(s): guaifenesin. Review of Systems Constitutional: Negative. HENT: Negative. Eyes: Negative. Respiratory: Negative. Breasts: Negative. Cardiovascular: Negative. Gastrointestinal: Negative. Genitourinary: Negative. Musculoskeletal: Negative. Skin: Negative. Neurological: Negative. Psychiatric/Behavioral: Negative. Endocrine: Endocrine negative BP 131/83 (BP Location: Right arm, Patient Position: Sitting, BP CUFF SIZE: Adult Large) | Pulse 85 | Temp 36.1 C (97 F) (Oral) | Resp 16 | Ht 5' 4" (1.626 m) | Wt 328 lb 8 oz (149 kg) | LMP(LMP Unknown) | BMI 56.39 kg/m Pregravid BMI: 51.6 Physical Exam PHYSICAL: General Exam: Neurological: Normal Abdomen: Normal gravid Extremities: Normal Pelvic Exam: Uterus: 39 Weeks Assessment/Plan Return to clinic in 1 weeks. Denies zika virus risk, signs and symptoms such as fever,rash,joint pain, conjunctivitis (red eyes),muscle pain, headaches; outside [place] travel to areas affected by zika, and FOB exposure to zika. Educated on use of mosquito repellent. Supervision of high risk , antepartum (primary encounter diagnosis) Multiparity History of section Comment: routine Plan: GROUP B STREPTOCOCCUS BY PCR, CBC WITH DIFF, CBC WITH DIFFERENTIAL, POCT URINALYSIS W SPECIFIC GRAVITY Obesity in Comment: see bmi Plan: BMI discussed, appropriate weight gain, sensible diet, and exercise This visit did not involve counseling and coordination that comprised more than 50% of the visit time. NIECY Mckeon 09/08/2019 9:58 AM TY CLERK OF SUPERIOR COURT documented in this encounter Plan of Treatment Date Type Specialty Care Team Description 09/15/2019 Routine OB Satellites Jodie Godwin, Visit [facility] [address], [place] [address] 09/29/2019 Hospital Encounter Obstetrics Ana Li MD [address] [place] [address] 77 [phone] 09/29/2019 Surgery Surgery Faculty, Ob SECTION [address] [place] [address] Name Type Priority Associated Diagnoses Date/Ti me GROUP B STREPTOCOCCUS BY LAB Routine Supervision of h igh risk 09/08/2019 9:33 AM PCR , antepartum DEPUTY CLERK OF SUPERIOR [facility] CBC WITH DIFF LAB Routine Supervision of high risk 9:33 AM , antepartum DEPUTY CLERK OF SUPERIOR COURT CBC WITH DIFFERENTIAL LAB Routine Supervision of high risk 09/08/2019 9:33 AM , antepartum DEPUTY CLERK OF SUPERIOR [facility] Health Maintenance Due Date Last Done Comments INFLUENZA VACCINE (#1) 2020 Postponed from 03/13/2019 (Refused) PNEUMOCOCCAL 0-64 YEARS COMBINED 07/21/2020 Postponed from 1996 SERIES (1 of 1 - PPSV23) (Refuse d) PAP SMEAR 01/26/2022 01/26/2019 DTaP,Tdap,and Td Vaccines (2 - 07/21/2029 07/21/2019 Td) documented as of this encounter Procedures Procedure Name Priority Date/Time Associated Diagnosis Comme nts POCT URINALYSIS Routine 09/08/2019 9:35 AM Supervision of [facility] h Results for this DEPUTY CLERK OF SUPERIOR COURT risk , procedure ar e in antepartum the results section. documented in this encounter Results POCT URINALYSIS W SPECIFIC GRAVITY (09/08/2019 9:35 AM DEPUTY CLERK OF SUPERIOR COURT) Pathologist Sig nature POCT U SP GRAV [...] Plan / Subscriber ID Effective Phone Address [facility] xxxxxxxxx 2019-Tari P[employer] [employer]OX Medic aid HEALTH CHOICE - HEALTH CHO[place] nt [id number] 1 MANAGED MEDICAID [place], [place] MEDICAID [id number] Guarantor Name Account Type Relation to Date of Phone Bill ing Patient Address Tyra Villalta Personal/Family Self 1990 [phone] [address] [facility] ([address] [place] [address] documented as of this encounter
--- OUTSIDE RECORDS SUMMARY | 2019-10-26 22:36 | XMS REPORT | Summary of Care ---
:1990 Author Organization [facility] Address [address] [place] [address] Care Team Providers Name Role Phone Jodie Godwin [facility] Primary Care Provider [phone] Encounter Details Date Type Department Care Team Description 09/02/2019 Abstract [facility] RMCHP- A Jodie Hebert, [address] [place] [address] [address] [phone] [place], [place] [address] Allergies Active Allergy Reactions Severity Noted Date Comments Penicillin Nausea and/or Vomiting 01/26/2019 documented as of this encounter (statuses as of 09/02/2019) Medications Medication Sig Dispensed Refills Start Date End Date Status guaiFENesin 100 mg/5 mL Take 5 mL by 355 mL 0 07/12/2019 Active solutionIndications: mouth every 4 Influenza B (four) hours. documented as of this encounter (statuses as of 09/02/2019) Active Problems Problem Noted Date URI (upper [...] as of this encounter (statuses as of 09/02/2019) Resolved Problems Problem Noted Date Resolved Date Chest pain 07/11/2019 07/11/2019 documented as of this encounter (statuses as of 09/02/2019) Immunizations Name Administration Dates Next Due TDAP [...] 09/08/2019 Routine OB Satellites Jodie Godwin, Visit [facility] [address] [place], [place] [address] [phone] 09/29/2019 Hospital Encounter Obstetrics Ana Li MD [address] [place] [address] 77 [address] 09/29/2019 Surgery Surgery Faculty, Ob SECTION [address] [place] [address] Health Maintenance Due Date Last Done Comments [...] Subscriber ID Effective Phone Address [facility] xxxxxxxxx 2019-Tari [place] BOX Medic aid HEALTH CHOICE - HEALTH CHOICE nt [id number] 1 MANAGED MEDICAID [place], [place] MEDICAID [phone] documented as of this encounter
--- OUTSIDE RECORDS SUMMARY | 2019-10-26 22:37 | XMS REPORT | Summary of Care ---
:1990 Author Organization [facility] Address [address] [place] [address] Care Team Providers Name Role Phone Jodie Godwin [facility] Primary Care Provider Reason for Visit Reason Comments Care Encounter Details Date Type Department Care Team Description 09/14/2019 Routine [facility] RMCHP- Tato, Nelson vision of high risk , antepartum (Primary Dx); Visit Anahi Trinh QUETA Multiparity; [address] History of section; [facility] Obesity in ; [phone] [place] Maternal tobacco use in third trimester [phone] [place] [address] Allergies Active Allergy Reactions Severity Noted Date Comments Penicillin Nausea and/or Vomiting 01/26/2019 documented as of this encounter (statuses as of 09/14/2019) Medications Medication Sig Dispensed Refills Start Date End Date Status guaiFENesin 100 mg/5 mL Take 5 mL by 355 mL 0 07/12/2019 Active solutionIndications: mouth every 4 Influenza B (four) hours. documented as of this encounter (statuses as of 09/14/2019) Active Problems Problem Noted Date URI (upper [...] as of this encounter (statuses as of 09/14/2019) Resolved Problems Problem Noted Date Resolved Date Chest pain 07/11/2019 07/11/2019 documented as of this encounter (statuses as of 09/14/2019) Immunizations Name Administration Dates Next Due TDAP [...] Sign Reading Time Taken Comments Blood Pressure 134/89 09/14/2019 8:16 AM CRYSTAL GROWING TECHNICIAN Pulse 87 09/14/2019 8:16 AM CRYSTAL GROWING TECHNICIAN Temperature 36.6 C (97.8 F) 09/14/2019 8:16 AM CRYSTAL GROWING TECHNICIAN Respiratory Rate 16 09/14/2019 8:16 AM CRYSTAL GROWING TECHNICIAN Oxygen Saturation - - Inhaled Oxygen Concentration - - Weight 149.3 kg (329 lb 2 oz) 09/14/2019 8:16 AM CRYSTAL GROWING TECHNICIAN Height 162.6 cm (5' 4") 09/14/2019 8:16 AM CRYSTAL GROWING TECHNICIAN Body Mass Index 56.49 09/14/2019 8:16 AM CRYSTAL GROWING TECHNICIAN documented in this encounter Progress Notes Jodie Godwin, WHCNP - 09/14/2019 8:00 AM CST Chief complaint: Chief Complaint Patient presents with Care HPI CC: Follow Up Visit Tyra Villalta is a 28 year old, , /White female. No LMP recorded (lmp unknown). Patient is . She is 36w6d with an intrauterine . Her estimated date [...] Last intercourse: 12/25/2018 Labs No new labs Radiology No new radiology. Allergies Tyra is allergic to penicillin. Medications Tyra has a current medication list which includes the following prescription(s): guaifenesin. Review of Systems Constitutional: Negative. HENT: Negative. Eyes: Negative. Respiratory: Negative. Breasts: Negative. Cardiovascular: Negative. Gastrointestinal: Negative. Genitourinary: Negative. Musculoskeletal: Negative. Skin: Negative. Neurological: Negative. Psychiatric/Behavioral: Negative. Endocrine: Endocrine negative BP 134/89 (BP Location: Right arm, Patient Position: Sitting, BP CUFF SIZE: Adult Medium) | Pulse 87 | Temp 36.6 C (97.8 F) (Oral) | Resp 16 | Ht 5' 4" (1.626 m) | Wt 329 lb 2 oz (149.3 kg) |LMP (LMP Unknown) | BMI 56.49 kg/m Pregravid BMI: 51.6 Physical Exam PHYSICAL: [...] Comment: routine Plan: POCT URINALYSIS W SPECIFIC GRAVITY Obesity in Comment: see bmi Plan: BMI discussed, appropriate weight gain, sensible diet, and exercise Maternal tobacco use in third trimester Comment: reports smokes 6cig/day Plan: smoking cessation encouraged This visit did not involve counseling and coordination that comprised more than 50% of the visit time. NIECY Mckeon 09/14/2019 8:36 AM TAL GROWING TECHNICIAN documented in this encounter Plan of Treatment Date Type Specialty Care Team Description 09/21/2019 Routine OB Satellites Jodie Godwin, Visit [facility] [address] [place], [place] [address] [phone] 09/29/2019 Hospital Encounter Obstetrics Ana Li MD [address] [place], [place] [address]d. [place], [place] [address] 09/29/2019 Surgery Surgery Faculty, Ob SECTION [address] [place] [address] Health Maintenance Due Date Last Done Comments INFLUENZA VACCINE (#1) 2020 Postponed from 03/13/2019 (Refused) PNEUMOCOCCAL 0-64 YEARS COMBINED 07/21/2020 Postponed from 1996 SERIES (1 of 1 - PPSV23) (Refuse d) PAP SMEAR 01/26/2022 01/26/2019 DTaP,Tdap,and Td Vaccines (2 - 07/21/2029 07/21/2019 Td) documented as of this encounter Procedures Procedure Name Priority Date/Time Associated Diagnosis Comme nts POCT URINALYSIS Routine 09/14/2019 8:17 AM Supervision of [facility] Results for this CRYSTAL GROWING TECHNICIAN risk , procedure ar e in antepartum the results section. documented in this encounter Results POCT URINALYSIS W SPECIFIC GRAVITY (09/14/2019 8:17 AM CRYSTAL GROWING TECHNICIAN) Pathologist Sig nature POCT U SP GRAV [...] ID Effective Phone Address T [employer] [facility] xxxxxxxxx 2019-Tari EDMOND Medic aid HEALTH CHOICE - HEALTH CHOICE nt [id number] 1 MANAGED MEDICAID [place], [place] MED[place]ID [id number] Guarantor Name Account Type Relation to Date of Phone Bill ing Patient Address Tyra Villalta Personal/Family Self 1990 [address] [place] [address] documented as of this encounter
--- OUTSIDE RECORDS SUMMARY | 2019-10-26 22:38 | XMS REPORT | Summary of Care ---
:1990 Author Organization [facility] - [facility] Address [address] [place] [id number] Care Team Providers Name Role Phone Jodie GodwinJose Alfredo Primary Care Provider [phone] Reason for Referral (Routine) Status Reason Specialty Diagnoses / Referred By Referred To Procedures Contact Contact New Request Diagnoses S/P section Ramos Procedures DISCHARGE FOLLOW-UP: [facility] Destini Maki MD [address] [place] [id number] Reason for Visit Auth/Cert Status Reason Specialty Diagnoses / Referred By Contact Refe rred To Contact Procedures Obstetrics Diagnoses 28yo @ 39.0 wbd PrevX2 for ERCS J7c Procedures ND DELIVERY+ CARE SECTION [address] [place] [address] Phone: Fax: Encounter Details Date Type Department Care Team Description 09/20/2019 - Hospital Encounter Mother Baby Unit Ramos Gestnati ticarroll 09/22/2019 (J7C) [place] hypertension, [address] [place] [address] MD Destini antepartum [place] [address] [place], [place] [id number] [place], [place] [phone] Allergies Active Allergy Reactions Severity Noted Date Comments Penicillin Nausea and/or Vomiting 01/26/2019 documented as of this encounter (statuses as of 09/22/2019) Medications Medication Sig Dispensed Refills Start Date End Date Status vitamin Take 1 tablet by 100 tablet 3 09/22/2019 Active w/FA mouth daily. May tabletIndication substitute for s: S/P what is in stock section and covered by patient plan docusate calcium Take 1 capsule by 60 capsule 1 09/22/2019 Active 240 mg mouth once daily capsuleIndicatio as needed for ns: S/P Constipation. May section substitute for what is in stock and covered by patient plan ferrous sulfate Take 1 tablet by 60 tablet 2 09/22/2019 Active 325 mg (65 mg mouth 2 (two) iron) times daily. May tabletIndication substitute for s: S/P what is in stock section and covered by patient plan ibuprofen 600 mg Take 1 tablet by 60 tablet 1 09/22/2019 Active tabletIndication mouth every 6 s: S/P (six) hours as section needed (Pain). Take with food or milk. HYDROcodone-acet Take 1 tablet by 20 tablet 0 09/22/201909/28 Active aminophen 5-325 mouth every 6 0 mg (six) hours as tabletIndication needed (Pain scale s: S/P > 4) for up to 7 section days. Do not exceed 3 grams of acetaminophen in 24 hours. guaiFENesin 100 Take 5 mL by mouth 355 mL 0 07/12/201909/10 Discontinued mg/5 mL every 4 (four) 0 solutionIndicati hours. ons: Influenza B documented as of this encounter (statuses as of 09/22/2019) Active Problems Problem Noted Date Morbid obesity with body mass index of 50 or higher 37 weeks gestation of 09/20/2019 Gestational hypertension, antepartum 09/20/2019 URI (upper respiratory infection) 07/11/2019 Generalized body aches 07/11/2019 Influenza B 07/11/2019 Screening, , isoimmunization 04/18/2019 BMI 50.0-59.9, adult 04/18/2019 BMI 50.0-59.9, adult 04/18/2019 Supervision of high-risk 01/26/2019 Multiparity 01/26/2019 History of section 01/26/2019 Overview: X2 pending ROR Obesity in 01/26/2019 Tobacco use during 01/26/2019 Estimated Date of Delivery Comments Yes 10/06/2019 Based on Ultrasound documented as of this encounter (statuses as of 09/22/2019) Resolved Problems Problem Noted Date Resolved Date Chest pain 07/11/2019 07/11/2019 documented as of this encounter (statuses as of 09/22/2019) Immunizations Name Administration Dates Next Due TDAP [...] Sign Reading Time Taken Comments Blood Pressure 117/75 09/22/2019 2:44 PM CDT Pulse 95 09/22/2019 2:44 PM CDT Temperature 36.8 C (98.2 F) 09/22/2019 2:44 PM CDT Respiratory Rate 18 09/22/2019 2:44 PM CDT Oxygen Saturation 98% 09/22/2019 2:44 PM CDT Inhaled Oxygen Concentration - - Weight 152.9 kg (337 lb) 09/20/2019 10:41 AM CDT Height 162.6 cm (5' 4") 09/20/2019 10:41 AM CDT Body Mass Index 57.85 09/20/2019 10:41 AM CDT documented in this encounter Discharge Summaries Katlyn Vasques MD - 09/22/2019 6:45 AM CDT DISCHARGE SUMMARY - ADMIT DATE: 09/20/2019 DISCHARGE DATE: 09/22/2019 ATTENDING MD AT DISCHARGE: Octavia Summers MD RESIDENT MD: Katlyn Vasques MD REASON FOR ADMISSION Gestational hypertension, antepartum FINAL DIAGNOSIS: Gestational hypertension, antepartum Supervision of high-risk Multiparity History of section Obesity in Morbid obesity with body mass index of 50 or higher 37 weeks gestation of SECONDARY DIAGNOSIS: Past Medical History: Diagnosis Date Chest pain 07/11/2019 Gestational hypertension, antepartum 09/20/2019 Pap smear abnormality of cervix 2009 STD (sexually transmitted disease) 2009 Genital warts PROCEDURES: Procedure: SECTION CPT(R) Code: 58907 - [place] DELIVERY+ CARE HOSPITAL COURSE: Briefly, Tyra Villalta is a who was admitted to [facility] on 09/20/2019 for ERCS due to gestational hypertension at 37 weeks in setting of previous X2. For best maternal and outcome, the patient agreed to a surgical delivery. She underwent an uncomplicated repeat low transverse c-s ection. She subsequently had an uneventful postoperative recovery course. She was ambulating, tolerating a regular diet with good pain control on postop day # 2. The patient is medically stable for discharge home to the care of her family with care instructions reviewed and with home meds prescribed. She is to follow- up in clinic as directed. CONDITION: Good DIET: Regular Diet; Texture: Regular Regular Diet; Texture: Regular. ACTIVITY: Physical activities as tolerated. No strenuous exercise or heavy lifting until 6-8 weeks . DISCHARGE MEDICATIONS: Current Discharge Medication List START taking these medications Details docusate calcium (SURFAK) 240 mg Take 240 mg by mouth once daily as needed for Constipation. May substitute for what is in stock and covered by patient plan Qty: 60 capsule, Refills: 1 Start date: 09/22/2019 Associated Diagnoses: S/P section ferrous sulfate 325 mg Take 325 mg by mouth 2 (two) times daily. May substitute for what is in stockand covered by patient plan Qty: 60 tablet, Refills: 2 Start date: 09/22/2019 Associated Diagnoses: S/P section HYDROcodone-acetaminophen (NORCO 5) 1 tablet Take 1 tablet by mouth every 6 (six) hours as needed (Pain scale > 4). Do not exceed 3 grams of acetaminophen in 24 hours. Qty: 20 tablet, Refills: 0 Start date: 09/22/2019, End date: 09/29/2019 Associated Diagnoses: S/P section ibuprofen (IBU) 600 mg Take 600 mg by mouth every 6 (six) hours as needed (Pain). Take with food or milk. Qty: 60 tablet, Refills: 1 Start date: 09/22/2019 Associated Diagnoses: S/P section vitamin w/FA (PRENATABS RX) 1 tablet Take 1 tablet by mouth daily. May substitute for what is in stock and covered by patient plan Qty: 100 tablet, Refills: 3 Start date: 09/22/2019 Associated Diagnoses: S/P section STOP taking these medications guaiFENesin 100 mg Comments: Reason for Stopping: WOUND CARE: The patient was instructed to keep incision clean and dry with soap and water in shower, dry gently with clean towel. She was instructed to return to ER if Temp > 100.4F, redness around or pus from incision, headache unresolved with pain medications, visual disturbances including double or blurry vision, seeing spots, upper abdominal pain, or vaginal bleeding greater than 1 pad per hour. Pelvic rest 4-6 weeks, and no heavy lifting. DISCHARGE: Discharged: Home FOLLOW-UP APPOINTMENT: 1 week incision and BP check 6 week PP visit Katlyn Vasques MD Associated attestation - Destini Dunlap MD - 09/22/2019 2:52 PM CDT Present and participated in the care.documented in this encounter Discharge Instructions Kristina Marti RN - 09/22/2019Multidisciplinary Discharge Instructions (may include diet, dressing changes, activity limits, written materials given to patient: DIET: Eat a well balanced diet; drink 6-8 glasses of fluids daily; eat fruits and green, leafy vegetables. DAILY ACTIVITIES: 1. As much as you feel able to do. Rest when you are tired. 2. Limitations: Specify; No heavy lifting other than your baby for 4 weeks if you had surgery. TREATMENT AT HOME 1. Use a well-fitting bra to prevent breast engorgement 2. Resume intercourse as instructed by your physician. 3. Do not use douches or tampons for four weeks. 4. To help prevent urinary tract infection; after each urination and bowel movement, wipe and dry from front to back and change aury pad. 5. Follow discharge instructions regarding baby care. 6. Follow family planning instructions. IMMEDIATE TREATMENT - Call Clinic or Your Physician 1. Increase in pain and tenderness of uterus. 2. Increased vaginal bleeding (bright red blood which soaks 2 pads in 1 hour or pass large clots). 3. Foul smelling vaginal discharge. 4. Burning in the tube that empties the urine from the bladder. 5. Painful breast engorgement or cracked nipples. 6. Pain, discharges, or gaping incision. 7. Temperature greater than 38.0C or 100.4F 8. Pain and tenderness of calf or thigh muscles. 9. No bowel movements in 4 days. For Problems or Questions Call: OB Clinic Family Planning [phone] or Emergency: Go to the closest emergency room or call 911 AttachmentsThe following attachments cannot be sent through Care Everywhere. , After (Mauritanian), Breast Care After (Mauritanian) Depression, Understanding (Mauritanian), Holding Your Baby While (Mauritanian)Breastfeed, How to (Mauritanian)Expressed Milk, Storing (Mauritanian)documented in this encounter Progress Notes Katlyn Vasques MD - 09/22/2019 5:54 AM CDT POST-OPERATIVE PROGRESS NOTE 09/22/2019 5:54 AM Subjective: Overnight patient had no complaints. Her pain is well controlled on oral pain medications. She is tolerating a regular diet. She has passed flatus. She is ambulating without difficulty. Lochia is Scant. She is urinating without mora. Patient denies chest pain, SOB, n/v, headache, RUQ pain, vision changes, dizziness. Objective: VITALS: Patient Vitals for the past 24 hrs: BP Temp Temp src Pulse Resp SpO2 09/22/19 0000 114/77 36.6 C (97.9 F) Oral 98 18 99 % 09/21/19 1900 105/57 37 C (98.6 F) Oral 104 18 97 % 09/21/19 1600 114/63 36.7 C (98 F) Oral 96 18 96 % 09/21/19 1104 107/52 36.7 C (98.1 F) Oral 92 18 98 % 09/21/19 0710 118/63 36.2 C (97.2 F) Oral 82 18 99 % I/O: Intake/Output Summary (Last 24 hours) at 09/22/2019 0554 Last data filed at 09/21/2019 1925 Gross per 24 hour Intake Output 1470 ml Net -1470 ml PE: General: patient alert and in no acute distress Lungs: clear to auscultation bilaterally Cardiology: regular rate and rhythm, no murmur Abdomen: normal tenderness to palpation, soft, bowel sounds present. Fundus is firm and at umbilicus Incision: incision clean, dry, and intact, no erythema or induration, steri strips in place Extremities: no clubbing, cyanosis, or edema : deferred MEDS: Current Facility-Administered Medications Medication Dose Route Frequency Last Rate Last Dose bisacodyL (DULCOLAX) suppository 10 mg 10 mg Rectal QDAILYPRN diphenhydrAMINE (BENADRYL) tablet 25 mg 25 mg Oral Q6HPRN 25 mg at 09/21/19 1754 diphenhydrAMINE-0.9 % sod.chlr (BENADRYL) 25 mg/50 mL piggyback 25 mg 25 mg IV Piggyback Q6HPRN docusate calcium (SURFAK) capsule 240 mg 240 mg Oral QDAILYPRN 240 mg at 09/22/19 0402 human papillomav vac,9-aide(PF) (GARDASIL-9) syringe 0.5 mL 0.5 mL Intramuscular ONCE-PRIOR TO DISCHARGE HYDROcodone-acetaminophen (NORCO 5) 5-325 mg tablet 1 tablet 1 tablet Oral Q6HPRN HYDROcodone-acetaminophen (NORCO 5) 5-325 mg tablet 2 tablet 2 tablet Oral Q6HPRN 2 tablet at09/22/19 0525 ibuprofen (IBU) tablet 600 mg 600 mg Oral Q6HPRN 600 mg at 09/22/19 0525 magnesium hydroxide (MILK OF MAGNESIA) 400 mg/5 mL suspension 30 mL 30 mL Oral QDAILYPRN 30 mL at 09/22/19 0401 naloxone (NARCAN) injection 0.4 mg 0.4 mg Slow IV Push PRN - SEE INSTRUCTIONS ondansetron (ZOFRAN (PF)) injection 4 mg 4 mg Slow IV Push Q8HPRN rho(D) immune globulin (RHOGAM) syringe 300 mcg 300 mcg Intramuscular ONCE simethicone (GAS RELIEF (SIMETHICONE)) chewable tablet 160 mg 160 mg Oral PC+HSPRN 160 mg at 09/21/19 1747 LABS: WBC (10*3/L) Date Value 09/21/2019 14.56 (H) 09/20/2019 11.11 (H) HGB (g/dL) Date Value 09/21/2019 12.9 09/20/2019 14.4 HCT (%) Date Value 09/21/2019 39.3 09/20/2019 43.8 PLT (10*3/L) Date Value 09/21/2019 224 09/20/2019 264 Assessment: Tyra Villalta is a 28 year old POD#2 s/p repeat LTCS on 09/20/19 1853 at 37w5d for contractions in setting of previous X2, uncomplicated. Patient is recovering well: hemodynamically stable, low UOP,pain well-controlled, vitals within normal limits. Plan: Postoperative Review: - Admitted for: RCS due to contractions in setting of previous X2 - Surgical procedure: Repeat Lower uterine transverse section with T incision - Skin incision: pfannenstiel - Closure: sutures - Estimated blood loss: 1000 mL - Intraoperative Complications: none - Findings: Thick adhesions between uterus and abdominal wall, extensive scarring of the fascia and abdominal musculature - Clinical trials: none - Urine output: adequate since Mora d/c'ed - Preop H/H: 14.4/43.8 - Postop H/H: 12.9/39.3 Gestational Hypertension - Based on mild ranging BPs and a Pr/Cr 0.1 - PP BPs 100-130s/50-70s - Will need 1 week PP BP check + Antibody screen - Anti-Fya and [place] 1:4 on last t&s - FOB test antigen neg Antepartum course reviewed - 1 h113, seronegative, Rimmune, VZVimmune,O positive/IATpositive(Anti-Fya, K)GBS negative, PapNIBELKIS (01/2019) - H/H, plt:14.2/ 42.4,246on 09/08 -[facility] Postoperative care: - Diet: Advance as tolerated - Fluid: Encourage oral intake - Activity: Encourage ambulation and incentive spirometry - Pain: [place] and Ibuprofen - DVT prophylaxis: SCDs and TEDs when not ambulating Discharge Planning - Contraception: will discuss at later time - Vaccines: Gardasil ordered - Follow up in 5-7 days for incision check and/or staple removal at [facility] - Follow Up: follow-up in 3-6 weeks at [facility] Baby's Status - APGARs 8 , 9 - Weight: 3080 g - Male - Location: in mom's room Dispo: POD#2. Stable overnight, meeting all milestones. Adequate for discharge on POD#2. Needs 1 week PP BP check. Katlyn Vasques MD Associated attestation - Destini Dunlap MD - 09/22/2019 2:46 PM CDT Present and participated in the careBeKatlyn michel MD - 09/21/2019 5:50 AM CDT POST-OPERATIVE PROGRESS NOTE 09/21/2019 5:51 AM Subjective: Overnight patient had no complaints. Her pain is well controlled on oral pain medications. She is tolerating a regular diet. She has not passed flatus. She is not ambulating without difficulty. Lochia is Scant. She is urinating with mora (Mora d/c'ed now). Patient denies chest pain, SOB, n/v, headache, RUQ pain, vision changes, dizziness. Objective: VITALS: Patient Vitals for the past 24 hrs: BP Temp Temp src Pulse Resp SpO2 Height Weight 09/21/19 0400 126/78 36.5 C (97.7 F) Oral 88 17 98 % 09/21/19 0000 121/69 36.6 C (97.8 F) Oral 75 17 99 % 09/20/192149 134/66 36.6 C (97.9 F) Oral 73 18 98 % 09/20/192114 118/76 88 16 98 % 09/20/192049 125/72 91 15 96 % 09/20/192034 93 16 95 % 09/20/192020 123/78 106 18 99 % 09/20/19 2005 110/77 36.8 C (98.3 F) Axillary 108 20 97 % 09/20/19 1700 131/85 88 16 99 % 09/20/19 1630 127/60 36.4 C (97.6 F) Axillary 90 16 96 % 09/20/19 1600 84 16 99 % 09/20/19 1530 (!) 141/80 93 16 96 % 09/20/19 1500 133/83 81 16 94 % 09/20/19 1430 115/52 36.5 C (97.7 F) Axillary 87 16 95 % 09/20/19 1400 132/66 84 16 96 % 09/20/19 1330 (!) 150/91 92 16 94 % 09/20/19 1300 (!) 142/88 93 16 93 % 09/20/19 1200 (!) 146/88 100 18 97 % 09/20/19 1041 (!) 145/86 36.4 C (97.6 F) Oral 96 18 99 % 1.626 m (5' 4") 152.9 kg (337 lb) I/O: Intake/Output Summary (Last 24 hours) at 09/21/2019 0551 Last data filed at 09/21/2019 0446 Gross per 24 hour Intake 2944 ml Output 1260 ml Net 1684 ml PE: General: patient alert and in no acute distress Lungs: clear to auscultation bilaterally Cardiology: regular rate and rhythm, no murmur Abdomen: normal tenderness to palpation, soft, bowel sounds present. Fundus is firm and at umbilicus Incision: bandage clean, dry, and intact, no erythema or induration Extremities: no clubbing, cyanosis, or edema : deferred MEDS: Current Facility-Administered Medications Medication Dose Route Frequency Last Rate Last Dose bisacodyL (DULCOLAX) suppository 10 mg 10 mg Rectal QDAILYPRN diphenhydrAMINE (BENADRYL) tablet 25 mg 25 mg Oral Q6HPRN diphenhydrAMINE-0.9 % sod.chlr (BENADRYL) 25 mg/50 mL piggyback 25 mg 25 mg IV Piggyback Q6HPRN docusate calcium (SURFAK) capsule 240 mg 240 mg Oral QDAILYPRN human papillomav vac,9-aide(PF) (GARDASIL-9) syringe 0.5 mL 0.5 mL Intramuscular ONCE-PRIOR TO DISCHARGE HYDROcodone-acetaminophen (NORCO 5) 5-325 mg tablet 1 tablet 1 tablet Oral Q6HPRN HYDROcodone-acetaminophen (NORCO 5) 5-325 mg tablet 2 tablet 2 tablet Oral Q6HPRN 2 tablet at09/21/19 0443 ibuprofen (IBU) tablet 600 mg 600 mg Oral Q6HPRN 600 mg at 09/21/19 0443 lactated ringers IV infusion 1,000 mL 1,000 mL IV Infusion ONCE magnesium hydroxide (MILK OF MAGNESIA) 400 mg/5 mL suspension 30 mL 30 mL Oral QDAILYPRN nalbuphine (NUBAIN) injection 5 mg 5 mg Intravenous PRN naloxone (NARCAN) injection 0.4 mg 0.4 mg Slow IV Push PRN - SEE INSTRUCTIONS ondansetron (ZOFRAN (PF)) injection 4 mg 4 mg Slow IV Push Q8HPRN ondansetron (ZOFRAN (PF)) injection 4 mg 4 mg Slow IV Push ONCE rho(D) immune globulin (RHOGAM) syringe 300 mcg 300 mcg Intramuscular ONCE simethicone (GAS RELIEF (SIMETHICONE)) chewable tablet 160 mg 160 mg Oral PC+HSPRN LABS: WBC (10*3/L) Date Value 09/21/2019 14.56 (H) 09/20/2019 11.11 (H) HGB (g/dL) Date Value 09/21/2019 12.9 09/20/2019 14.4 HCT (%) Date Value 09/21/2019 39.3 09/20/2019 43.8 PLT (10*3/L) Date Value 09/21/2019 224 09/20/2019 264 Assessment: Tyra Villalta is a 28 year old POD#1 s/p repeat LTCS on 09/20/19 1853 at 37w5d for contractions in setting of previous X2, uncomplicated. Patient is recovering well: hemodynamically stable, low UOP,pain well-controlled, vitals within normal limits. Plan: Postoperative Review: - Admitted for: RCS due to contractions in setting of previous X2 - Surgical procedure: Repeat Lower uterine transverse section with T incision - Skin incision: pfannenstiel - Closure: sutures - Estimated blood loss: 1000 mL - Intraoperative Complications: none - Findings: Thick adhesions between uterus and abdominal wall, extensive scarring of the fascia andabdominal musculature - Clinical trials: none - Urine output: 24 cc/hr (0.16 cc/kg/hr) - Preop H/H: 14.4/43.8 - Postop H/H: 12.9/39.3 - IVF bolus ordered for low UOP, encouraged PO fluid intake Gestational Hypertension - Based on mild ranging BPs and a Pr/Cr 0.1 - PP BPs 120-130s/60-70s - Will need 1 week PP BP check + Antibody screen - Anti-Fya and K titers 1:4 on last t&s - FOB test antigen neg Antepartum course reviewed - 1 h 113, sero negative, Rimmune, VZVimmune, O positive/IAT positive (Anti-Fya, K) GBS negative, Pap NILM (01/2019) - H/H, plt: 14.2 / 42.4, 246 on 09/08 - [facility] Postoperative care: - Diet: Advance as tolerated - Fluid: Encourage oral intake - Activity: Encourage ambulation and incentive spirometry - Pain: [place] and Ibuprofen - DVT prophylaxis: SCDs and TEDs when not ambulating Discharge Planning - Contraception: will discuss at later time - Vaccines: Gardasil ordered - Follow up in 5-7 days for incision check and/or staple removal at [facility] - Follow Up: follow-up in 3-6 weeks at [facility] Baby's Status - APGARs 8 , 9 - Weight: 3080 g - Male - Location: in mom's room Dispo: POD#1. Patient is 24h PP @ 1853. Stable overnight, needs to meet following milestones: spontaneous void X2, passing flatus, ambulation. IVF bolus ordered for low UOP, encouraged PO fluid intake.Patient not ready to go home. Anticipate discharge on POD#2. Needs 1 week PP BP check. Katlyn Vasques MD Associated attestation - Arleen Pineda MD - 09/22/2019 9:15 AM CDTI personally examined the patient on 09/21/[address] Vasques's resident note as written. I actively participated in the decision-making process. Please see the resident's note for additional details. Christine Brady MD - 09/20/2019 4:38 PM CDT Progress Note Tyra Villalta is a 28 year old female 37w5d admitted for repeat CS due to diagnosis of gestational hypertension First mild ranging BP was on admission at 1030 Vitals: 09/20/19 1500 09/20/19 1530 09/20/19 1600 09/20/19 1630 BP: 133/83 (!) 141/80 127/60 Pulse: 81 93 84 90 Resp: 16 16 16 16 Temp: 36.4 C (97.6 F) TempSrc: Axillary SpO2: 94% 96% 99% 96% Weight: Height: 09/20/2019 11:32 HGB 14.4 PLT x10^3 264 CREATININE 0.58 URIC ACID 5.5 Protein/Creatinine Ratio Urine 0.1 ALTv 20 AST(SGOT) 22 LDH 400 Christine Brady MD 09/20/2019 4:39 PM documented in this encounter Plan of Treatment Date Type Specialty Care Team Description 09/27/2019 [facility] [address], [place] [address] [phone] Name Type Priority Associated Diagnoses Date/Ti me Prepare Packed RBC Blood Bank STAT 0 4:01 PM CDT (in units) Health Maintenance Due Date Last Done Comments INFLUENZA VACCINE (#1) 2020 Postponed from 03/13/2019 (Refused) PNEUMOCOCCAL 0-64 YEARS COMBINED 07/21/2020 Postponed from 1996 SERIES (1 of 1 - PPSV23) (Refuse d) PAP SMEAR 01/26/2022 01/26/2019 DTaP,Tdap,and Td Vaccines (2 - 07/21/2029 07/21/2019 Td) documented as of this encounter Procedures Procedure Name Priority Date/Time Associated Comments Diagnosis CBC WITH DIFFERENTIAL Routine 09/21/2019 2:51 Re sults for this AM CDT procedure are i n the results section. CBC WITH DIFFERENTIAL Routine 09/21/2019 2:51 Re sults for this AM CDT procedure are i n the results section. VENOUS CORD GAS ERIC 09/20/2019 6:55 Results for this PM CDT procedure are i n the results section. ARTERIAL CORD GAS ERIC 09/20/2019 6:55 Result s for this PM CDT procedure are i n the results section. SECTION 09/20/2019 5:13 s/p repeat c/s PM CDT PROTEIN CREAT RATIO STAT 09/20/2019 11:33 Resu lts for this URINE RANDOM AM CDT procedure are i n the results section. URINALYSIS STAT 09/20/2019 11:33 Results for this AM CDT procedure are i n the results section. GALV ONLY - SYPHILIS ERIC 09/20/2019 11:32 Res ults for this IGG/IGM AM CDT procedure are i n the results section. CBC WITH DIFFERENTIAL ERIC 09/20/2019 11:32 Re sults for this AM CDT procedure are i n the results section. HEPATITIS B SURFACE ERIC 09/20/2019 11:32 Resu lts for this ANTIGEN AM CDT procedure are i n the results section. CBC WITH DIFFERENTIAL ERIC 09/20/2019 11:32 Re sults for this AM CDT procedure are i n the results section. URIC ACID STAT 09/20/2019 11:32 Results for this AM CDT procedure are i n the results section. LACTATE DEHYDROGENASE STAT 09/20/2019 11:32 Re sults for this AM CDT procedure are i n the results section. ALANINE AMINO STAT 09/20/2019 11:32 Results fo r this TRANSFERASE(SGPT AM CDT procedure a re in the results section. CREATININE STAT 09/20/2019 11:32 Results for this AM CDT procedure are i n the results section. SGOT (ASPARTATE AMINO STAT 09/20/2019 11:32 Re sults for this TRANSFER) AM CDT procedure are i n the results section. RHO (D) IMMUNE GLOBULIN Routine 09/20/2019 10:54 Results for this AM CDT procedure are i n the results section. HB ABO GROUPING STAT 09/20/2019 10:54 Results for this AM CDT procedure are i n the results section. PANEL IDENTIFICATION STAT 09/20/2019 10:54 Res ults for this AM CDT procedure are i n the results section. documented in this encounter Results CBC WITH DIFFERENTIAL (09/21/2019 2:51 AM CDT) Pathologist Sig nature WBC 14.56 (H) 4.30 - 11.10 [facility] 10*3/L SERVICES RBC 4.58 3.93 - 5.25 [facility] 10*6/L SERVICES HGB 12.9 11.6 - 15.0 [facility] g/dL SERVICES HCT 39.3 35.7 - 45.2 % [facility] MCV 85.8 80.6 - 95.5 fL [facility] MCH 28.2 25.9 - 32.8 pg [facility] MCHC 32.8 31.6 - 35.1 [facility] g/dL SERVICES RDW-SD 44.3 39.0 - 49.9 fL [facility] RDW-CV 14.4 12.0 - 15.5 % [facility] PLT 224 166 - 358 [facility] 10*3/L SERVICES MPV 11.0 9.5 - 12.9 fL [facility] NRBC/100 WBC 0.0 0.0 - 10.0 /100 [facility] WBCs SERVICES NRBC x10^3 <0.01 10*3/L [facility] GRAN MAT (NEUT) % 81.3 % [facility] IMM GRAN % 0.50 % [facility] LYMPH % 10.0 % [facility] MONO % 7.8 % [facility] EOS % 0.1 % [facility] BASO % 0.3 % [facility] GRAN MAT x10^3(ANC) 11.84 (H) 1.88 - 7.09 [facility] 10*3/uL SERVICES IMM GRAN x10^3 0.08 (H) 0.00 - 0.06 [facility] 10*3/uL SERVICES LYMPH x10^3 1.46 1.32 - 3.29 [facility] 10*3/uL SERVICES MONO x10^3 1.13 (H) 0.33 - 0.92 [facility] 10*3/uL SERVICES EOS x10^3 <0.03 (L) 0.03 - 0.39 [facility] 10*3/uL SERVICES BASO x10^3 0.04 0.01 - 0.07 [facility] 10*3/uL SERVICES Specimen Blood - ARM, RIGHT Performing Organization Address City/[facility]/Zipcode Phone Number [facility] CLIA: [id number], [address] [place] [address] 555 [facility] Venous Cord Gas (09/20/2019 6:55 PM CDT) Pathologist Sig nature VENOUS BASE EXCESS, -2.6 mEq/L [facility] CORD SERVICES VENOUS PH, CORD 7.30 7.25 - 7.45 [facility] VENOUS PC02, CORD 50 (H) 27 - 49 mmHg [facility] VENOUS PO2, CORD 19 17 - 41 mmHg [facility] VENOUS BICARBONATE, 24 12 - 29 mEq/L [facility] CORD SERVICES Specimen Blood - ARTERIAL Performing Organization Address City/[facility]/Zipcode Phone Number [facility] CLIA: [id number], [address] [place] [address] 555 [facility] Arterial Cord Gas (09/20/2019 6:55 PM CDT) Pathologist Sig nature BASE EXCESS, CORD -3.6 mEq/L [facility] AC PH, CORD (BEAKER) 7.23 7.18 - 7.38 [facility] PC02, CORD 62 32 - 66 mmHg [facility] PO2, CORD 12 10 - 30 mmHg [facility] BICARBONATE, CORD 25 17 - 27 mEq/L [facility] Specimen Blood - ARTERIAL Performing Organization Address City/[facility] Phone Number [facility] CLIA: [id number], [address] [place] [address] 555 [facility] Urinalysis (09/20/2019 11:33 AM CDT) Pathologist Sig nature APPEARANCE Hazy (A) Clear [facility] COLOR Yellow Yellow [facility] PH 6.0 4.8 - 8.0 [facility] SP GRAVITY 1.014 1.003 - 1.030 [facility] GLU U QUAL Normal Normal [facility] BLOOD Negative Negative [facility] KETONES Negative Negative [facility] PROTEIN Negative Negative [facility] UROBILIN Normal Normal [facility] BILIRUBIN Negative Negative [facility] NITRITE Negative Negative [facility] LEUK AURA Negative Negative [facility] RBC/HPF 1 0 - 3 HPF [facility] WBC/HPF 1 0 - 5 HPF [facility] BACTERIA Few (A) Negative [facility] MUCOUS Slight (A) Negative LPF [facility] SQ EPITH 7 (H) <=2 HPF [facility] Specimen Urine - URINE, CLEAN CATCH Performing Organization Address [facility] Phone Number [facility] CLIA: [id number], [address] [place] [address] 555 [facility] Protein CREAT Ratio Urine Random (09/20/2019 11:33 AM CDT) Pathologist Sig nature T. PROT U 12 mg/dL [facility] CREAT U 109.8 mg/dL [facility] Protein/Creatinine 0.1 0.0 - 2.0 [facility] SERVIC ES Ratio Urine Specimen Urine - URINE, CLEAN CATCH Performing Organization Address [facility] Phone Number [facility] CLIA: [id number], [address] [place] [address] 555 [facility] Lactate Dehydrogenase (09/20/2019 11:32 AM CDT) Pathologist Sig nature LDH 400 300 - 600 U/L [facility] SERVICES Specimen Blood - VENOUS Performing Organization Address [facility] Phone Number [facility] CLIA: [id number], [address] [place] [address] 555 [facility] Alanine Amino Transferase (SGPT) (09/20/2019 11:32 AM CDT) Pathologist Sig nature ALTv 20 5 - 35 U/L [facility] SERVICES Specimen Blood - VENOUS Performing Organization Address [facility] Phone Number [facility] CLIA: [id number], [address] [place] [address] [address] [facility] SGOT (Asparate Amino Transfer) (09/20/2019 11:32 AM CDT) Pathologist Sig nature AST(SGOT) 22 13 - 40 U/L [facility] SERVICES Specimen Blood - VENOUS Performing Organization Address [facility] Phone Number [facility] CLIA: [id number], [address] [place] [address] 555 [facility] Serum Creatinine (09/20/2019 11:32 AM CDT) Pathologist Yuri mantilla CREATININE 0.58 0.50 - 1.04 [facility] mg/dL SERVICES eGFR Calculation 123.8 mL/min/1.73m2 [facility] (Non-) SERVICES eGFR Calculation 150.0 mL/min/1.73m2 [facility] () SERVICES Specimen Blood - VENOUS Narrative Performed At Association of Glomerular Filtration Rate (GFR) and St aging [facility] SERVICES of Kidney Disease* + + +------- ------ + | GFR (mL/min/1.73 m2) | With Kidney Damage | Wi thout Kidney Damage + + +------- ------ + | >90 | Stage one | Normal + + +------- ------ + | 60-89 | Stage two | Decreased GFR + + +------- ------ + | 30-59 | Stage three | Stage three + + +------- ------ + | 15-29 | Stage four | Stage four + + +------- ------ + | <15 (or dialysis) | Stage five | Stage five + + +------- ------ + *Each stage assumes the associated GFR level has been in effect for at least three months. Stages 1 to 5, wit h or without kidney disease, indicate chronic kidney disease. Notes: Determination of stages one and two (with eGFR >59mL/min/1.73 m2) requires estimation of kidney damag e for at least three months as defined by structural or func tional abnormalities of the kidney, manifested by either: Pathological abnormalities or Markers of kidney damage (including abnormalities in the composition of the blo od or urine or abnormalities in imaging tests) . Performing Organization Address City/[facility]/Zipcode Phone Number [facility] CLIA: [id number], [address] [place] [address] [address] [facility] Uric Acid Serum (09/20/2019 11:32 AM CDT) [facility] URIC ACID 5.5 2.9 - 6.0 mg/dL [facility] SERVICES Specimen Blood - VENOUS Performing Organization Address [facility]/Zipcode Phone Number [facility] CLIA: [id number], [address] [place] [address] 555 [facility] CBC WITH DIFFERENTIAL (09/20/2019 11:32 AM CDT) [facility] WBC 11.11 (H) 4.30 - 11.10 [facility] 10*3/L SERVICES RBC 5.22 3.93 - 5.25 [facility] 10*6/L SERVICES HGB 14.4 11.6 - 15.0 [facility] g/dL SERVICES HCT 43.8 35.7 - 45.2 % [facility] MCV 83.9 80.6 - 95.5 fL [facility] SERVICES MCH 27.6 25.9 - 32.8 pg [facility] SERVICES MCHC 32.9 31.6 - 35.1 [facility] g/dL SERVICES RDW-SD 43.2 39.0 - 49.9 fL [facility] SERVICES RDW-CV 14.2 12.0 - 15.5 % [facility] SERVICES PLT 264 166 - 358 [facility] 10*3/L SERVICES MPV 10.9 9.5 - 12.9 fL [facility] SERVICES NRBC/100 WBC 0.0 0.0 - 10.0 /100 [facility] WBCs SERVICES NRBC x10^3 <0.01 10*3/L [facility] SERVICES GRAN MAT (NEUT) % 76.7 % [facility] IMM GRAN % 0.50 % [facility] LYMPH % 14.3 % [facility] MONO % 7.6 % [facility] EOS % 0.5 % [facility] BASO % 0.4 % [facility] GRAN MAT x10^3(ANC) 8.53 (H) 1.88 - 7.09 [facility] 10*3/uL SERVICES IMM GRAN x10^3 0.06 0.00 - 0.06 [facility] 10*3/uL SERVICES LYMPH x10^3 1.59 1.32 - 3.29 [facility] 10*3/uL SERVICES MONO x10^3 0.84 0.33 - 0.92 [facility] 10*3/uL SERVICES EOS x10^3 0.05 0.03 - 0.39 [facility] 10*3/uL SERVICES BASO x10^3 0.04 0.01 - 0.07 [facility] 10*3/uL SERVICES Specimen Blood - VENOUS Performing Organization Address City/State/Zipcode Phone Number [facility] CLIA: [id number], [address] [place], [place] [address] [address] [facility] GALV ONLY - SYPHILIS IGG/IGM (09/20/2019 11:32 AM CDT) Pathologist Sig nature Syphilis IgG/IgM Non-reactive Non-reactive [facility] SERVICES Specimen Blood - VENOUS Narrative Performed At [facility] SERVICES Non-reactive - No serologic evidence of T. pallidum infection. Cannot exclude incubating or early syphilis . Submit a second specimen in 2-4 weeks if syphilis is clinically suspected. Equivocal - Further testing to follow. Reactive - Further testing to follow. Performing Organization Address City/State/Zipcode Phone Number [facility] CLIA: [id number], [address] [place] [address] [address] [facility] Hepatitis B Surface Antigen (09/20/2019 11:32 AM CDT) [facility] HBsAg Negative Negative [facility] HBsAg 0.04 [facility] Semi-Quantitative SERVICES Specimen Blood - VENOUS Performing Organization Address [facility] Phone Number [facility] CLIA: [id number], [address] [place] [address] [address] [facility] RHO (D) IMMUNE GLOBULIN (09/20/2019 10:54 AM CDT) [facility] RHIG CANDIDATE? No- see comment LAB Comment: Patient is not a candidate for RhIg- Patient is Rh Pos itive. Performed at [facility] Laboratory Services - [facility] Blood [place] [address] Toll Free: [phone] CLIA No. [id number] Specimen Blood - VENOUS Performing Organization Address [facility] Phone Number [facility] LAB PANEL IDENTIFICATION (09/20/2019 10:54 AM CDT) [facility] ANTIBODY ID Anti-Fya LAB Anti-K Comment: Performed at [facility] Laboratory Services - [facility] Blood [place] [address] Toll Free: [phone] CLIA No. [id number] Specimen Performing Organization Address City/[facility] Phone Number [facility] LAB Type and Screen - ONCE STAT (09/20/2019 10:54 AM CDT) [facility] ABO & RH O POSITIVE LAB Comment: Performed at [facility] Laboratory Services - [facility] Blood [place] [address] Toll Free: [phone] CLIA No. [id number] IAT Positive LAB Comment: Performed at [facility] Laboratory Services - [facility] Blood Bank [address] [place] [address] Toll Free: [phone] CLIA No. [id number] Specimen Blood - VENOUS Performing Organization Address City/State/Zipcode Phone Number [facility] LAB documented in this encounter Visit Diagnoses Diagnosis Gestational hypertension, antepartum - P rimary S/P section Other postprocedural status Morbid obesity with body mass index of 5 0 or higher History of section Other postprocedural status Multiparity Obesity in Obesity complicating , childbir th, or the puerperium, unspecified as to episode of care or not applicable Supervision of high-risk Unspecified high-risk 37 weeks gestation of state, incidental documented in this encounter Administered Medications Medication Order MAR Action Action Date Dose Rate Site benzocaine-menthol (CEPACOL Given 09/22/2019 1:18 PM CDT 1 Loze nge SORE THROAT (DEANNA-MEN)) lozenge 1 Lozenge 1 Lozenge, Oral, Q4HPRN, Starting Denisse 09/22/19 at 1242, Until Discontinued, Routine, Sore throat diphenhydrAMINE (BENADRYL) tablet 25 mg Given 09/21/2019 5:54 PM CDT 25 mg 25 mg, Oral, Q6HPRN, Starting Thu09/20/19 at 2159, Until Discontinued, Routine, Sleep, Itching Given 09/21/2019 8:04 AM CDT 25 mg docusate calcium (SURFAK) capsule 240 mg Given 09/22/2019 4:02 AM CDT 240 mg 240 mg, Oral, QDAILYPRN, Starting Thu09/20/19 at 2159, Until Discontinued, Routine, Constipation Given 09/21/2019 11:10 AM CDT 240 mg HYDROcodone-acetaminophen (NORCO 5) 5-325 Given 2019 12:28 PM CDT 2 tablets mg tablet 2 tablet 2 tablet, Oral, Q6HPRN, Starting e 09/20/19 at 2159, Until Discontinued, Routine, Pain (scale 7-10), If uncontrolled by Ibuprofen Given 09/22/2019 5:25 AM CDT 2 tablets Given 09/21/2019 11:22 PM CDT 2 tablets ibuprofen (IBU) tablet 600 mg Given 09/22/2019 12:28 PM CDT 600 mg 600 mg, Oral, Q6HPRN, Starting Thu09/20/19 at 2159, Until Discontinued, Routine, Pain (scale 1-3) Given 09/22/2019 5:25 AM CDT 600 mg Given 09/21/2019 11:22 PM CDT 600 mg magnesium hydroxide (MILK OF MAGNESIA) 400 Given 09/22/2019 4:0 1 AM CDT 30 mL mg/5 mL suspension 30 mL 30 mL, Oral, QDAILYPRN, Starting Thu09/20/19 at 2159, Until Discontinued, Routine, Constipation naloxone (NARCAN) injection 0.4 mg 0.4 mg, Slow IV Push, PRN - SEE INSTRUCT IONS, Starting Thu09/20/19 at 2011, Until Denisse 09/22/19 at 2010, Routine, Analgesia Recovery, PACU simethicone (GAS RELIEF (SIMETHICONE)) Given 09/22/2019 12:28 PM CDT 160 mg chewable tablet 160 mg 160 mg, Oral, PC+HSPRN, Starting Thu09/20/19 at 215, Until Discontinued, Routine, Gas Given 09/21/2019 5:47 PM CDT 160 mg Given 09/21/2019 11:10 AM CDT 160 mg Medication Order MAR Action Action Date Dose Rate Site acetaminophen (TYLENOL) tablet Given 09/20/2019 4:41 PM CDT 650 mg 650 mg 650 mg, Oral, ONCE, 1 dose, Thu09/20/19 at 1100, Routine famotidine (PEPCID (PF)) injection 20 mg Given 09/20/2019 1:26 PM CDT 20 mg 20 mg, IV Piggyback, ONCE, 1 dose, Thu09/20/19 at 1230, Routine gentamicin 40 mg/mL 480 mg in NaCl 0.9% (NS) Given 04/2020 4:43 PM CDT 480 mg 250 mL IV infusion 480 mg (rounded from 470 mg = 5 mg/kg 94 kg Adjusted weight), IV Infusion, O.R. 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, Duration of therapy: within 24 hours of surgery Investigational Drug- tranexamic Given by Provider 09/20/2019 6:54 P M CDT 1 g acid 1 gram or placebo in NS 50 mL 1 g, IV Infusion, ONCE, 1 dose, 09/20/19 at 1645, claim investigator: ERLINDA VALENZUELA ketorolac (TORADOL) injection 30 mg Given 09/20/2019 8:45 PM CDT 30 mg 30 mg, Slow IV Push, PRN, 1 dose, Starting e 09/20/19 at 2012, Until 09/20/19 at 2045, Routine, Pain (scale 7-10), PACU, [employer] team member approving Restricted medication: JOSÉ MIGUEL LEE lactated ringers IV infusion New Bag 09/20/2019 12:34 PM CDT 1,000 mL 125 mL/hr 1,000 mL at 125 mL/hr, 1,000 mL, IV Infusion, CONTINUOUS, Starting Thu09/20/19 at 1100, Until Thu09/20/19 at 2159, Routine LR 1000 mL + oxytocin 20 units IV Given 09/21/2019 12:10 AM CDT 125 mL/hr Solution at 125 mL/hr, IV Infusion, ONCE, 1 dose, Thu09/20/19 at 2200, ERIC metoclopramide HCl (REGLAN) 10 mg in NaCl Given 09/20/2019 12:34 PM CDT 10 mg 0.9% (NS) piggyback 10 mg, IV Piggyback, ONCE, 1 dose, e 09/20/19 at 1230, 50 mL sodium citrate-citric acid (BICITRA) 500-334 Given 04/2020 5:23 PM CDT 30 mL mg/5 mL solution 30 mL 30 mL, Oral, PRE-PROCEDURE ONCE, 1 dose, Starting e 09/20/19 at 1053, Until Thu09/20/19 at 1723, Routine, Surgery/Procedure documented in this encounter Insurance Payer Benefit Plan / Subscriber ID Effective Phone Address [facility] xxxxxxxxx 2019-Prese [address] Medic aid HEALTH CHOICE - HEALTH CHOICE nt [id number] MANAGED MEDICAID [place], [place] [id number] Guarantor Name Account Type Relation to Date of Phone Bill ing Patient Address Tyra Villalta Personal/Family Self 1990 [phone] (Home) [address] [place] [address] documented as of this encounter
--- OUTSIDE RECORDS SUMMARY | 2019-10-26 22:38 | XMS REPORT | Summary of Care ---
:1990 Author Organization [facility] Address [address] [place] [address] Care Team Providers Name Role Phone Jodie Godwin [facility] Primary Care Provider [phone] Reason for Visit Reason Comments NURSE VISIT incision check Encounter Details Date Type Department Care Team Description 09/27/2019 Nurse Visit [facility] Nesotr Godwin, [facility] [address] [place] [address] Visit for wound check Tiff Visit, [facility] Nurse (Primary Dx) [address] [place] [address] Allergies Active Allergy Reactions Severity Noted Date Comments Penicillin Nausea and/or Vomiting 01/26/2019 documented as of this encounter (statuses as of 09/27/2019) Medications Medication Sig Dispensed Refills Start Date End Date Status vitamin Take 1 tablet by 100 tablet 3 09/22/2019 Active w/FA mouth daily. May tabletIndications substitute for what : S/P is in stock and section covered by patient plan docusate calcium Take 1 capsule by 60 capsule 1 09/22/2019 Active 240 mg mouth once daily as capsuleIndication needed for s: S/P Constipation. May section substitute for what is in stock and covered by patient plan ferrous sulfate Take 1 tablet by 60 tablet 2 09/22/2019 Active 325 mg (65 mg mouth 2 (two) times iron) daily. May tabletIndications substitute for what : S/P is in stock and section covered by patient plan ibuprofen 600 mg Take 1 tablet by 60 tablet 1 09/22/2019 Active tabletIndications mouth every 6 (six) : S/P hours as needed section (Pain). Take with food or milk. HYDROcodone-aceta Take 1 tablet by 20 tablet 0 09/22/201909/10 Active minophen 5-325 mg mouth every 6 (six) tabletIndications hours as needed : S/P (Pain scale > 4) for section up to 7 days. Do not exceed 3 grams of acetaminophen in 24 hours. documented as of this encounter (statuses as of 09/27/2019) Active Problems Problem Noted Date Morbid obesity [...] as of this encounter (statuses as of 09/27/2019) Resolved Problems Problem Noted Date Resolved Date Chest pain 07/11/2019 07/11/2019 documented as of this encounter (statuses as of 09/27/2019) Immunizations Name Administration Dates Next Due TDAP [...] Sign Reading Time Taken Comments Blood Pressure 121/83 09/27/2019 11:12 AM CDT Pulse 86 09/27/2019 11:12 AM CDT Temperature 36.4 C (97.6 F) 09/27/2019 11:12 AM CDT Respiratory Rate 16 09/27/2019 11:12 AM CDT Oxygen Saturation - - Inhaled Oxygen Concentration - - Weight 144.9 kg (319 lb 7 oz) 09/27/2019 11:12 AM CDT Height 162.6 cm (5' 4") 09/27/2019 11:12 AM CDT Body Mass Index 54.83 09/27/2019 11:12 AM CDT documented in this encounter Patient Instructions Patient InstructionsTigist Wu RN - 09/27/2019 11:00 AM CDT Patient Education Incision Care Remember: Follow-up visits allow your healthcare provider to make sure your incision is healing well. Keep your appointments. Home care Tips for home care include the following: Always wash with soap and dry your hands before touching your incision. Keep your incision clean and dry. Don't do things that could cause dirt or sweat to get on your incision. Dont pick at scabs. They help protect the wound. Keep your incision dry, and out of water. Take a sponge bath to avoid getting your incision wet. Ask your provider when can you take a shower or bath. Ask your provider about the best way to keep your incision dry when bathing or showering. Pat stitches dry if they get wet. Dont rub. Leave the bandage (dressing) in place until you are told to remove it or change it. Change it only as directed, using clean hands. After the first 12 hours, change your dressing every 24 hours, or as directed by your healthcare provider. Change your dressing if it gets wet or soiled. Care for types of closures Follow these guidelines: Stitches or marlon. Once you no longer need to keep these dry, clean the wound daily. First remove the bandage using clean hands. Then wash the area gently with soap and warm water. Finally, put nicholas new bandage. Skin glue. Dont put liquid, ointment, or cream on your wound while the glue is in place.Don't do activities that cause heavy sweating. Protect the wound from sunlight. Do not scratch, rub, or pick at the glue. Do not put tape directly over the glue.The glue should peel off within 5 to 10 days. Surgical tape. Keep the area dry. If it gets wet, blot the area dry with a clean towel. Surgical tape usually falls off within 7 to 10 days. If it has not fallen off after 10 days, contact your healthcare provider before taking it off yourself. If you are told to remove the tape,put mineral oil or petroleum jelly on a cotton ball. Gently rub the tape until it is removed. Changing your dressing Leave the dressing (bandage) in place until you are told to remove it or change it. Follow the instructions below unless told otherwise by your healthcare provider: Always wash your hands before changing your dressing. After the first48 hours, the incision wound usually will have closed. If it has, uncover the incision and leave it open to the air.If the incision has not closed, keep it covered. Cover your incision only if your clothing is rubbing it or causingirritation, or if it is stilldraining. Change your dressing if it gets wet or soiled. Follow-up care Follow up with your healthcare provider to ask how long sutures or marlon should be left in place. Be sure to return for stitch or staple removal as directed. If dissolving stitches were used in an area such as your mouth, these will not need to be removed. They should fall out or dissolve on their own. If tape closures were used, remove them yourself when your provider recommends if they have not fallen off on their own. Ifskin glue was used, the glue will wear off by itself. When to call your healthcare provider Call your healthcare provider if you have any of the below: Pain, redness, swelling, or bleeding that gets worse Smelly fluid from the incision Fever of 100.4F ( 38C) or higher Shaking or chills Vomiting or nausea that doesn't go away Numbness, coldness, or tingling around the incision Changes in skin color around the incision Opening of the wound Stitches that pull apart Marlon that fall out Surgical tape that falls off before 7 days Bre last reviewed this educational content on 03/13/201919996202-[address] [place] [address], [place] [address]. All rights reserved. This information is not intended as a substitute for professional medical care. Always follow your healthcare professional's instructions. Patient Education Understanding Depression Youve just had a baby. You expected to be excited and happy. But instead you find yourself cryingfor no reason. You may have trouble coping with your daily tasks. You feel sad, tired, and hopeless most of the time. You may even feel ashamed or guilty. But what youre going through is not your fault and you can feel better. Talk to your healthcare provider. He or she can help. What is depression? Depression is a mood disorder that affects the way you think and feel. The most common symptom is a feeling of deep sadness. You may also feel as if you just cant cope with life. Other symptoms include: Gaining or losing a lot of weight Sleeping too much or too little Feeling tired all the time Feeling restless Crying a lot Having too little or too much appetite. Withdrawing from friends and family Having headaches, aches and pains, or stomach problems that won't go away. Fears of harming your baby Lack of interest in your baby Feeling worthless or guilty No longer finding pleasure in things you used to Having trouble thinking clearly or making decisions Thinking about or suicide Depression after childbirth You may be weepy and tired right after giving . These feelings are normal. Theyre sometimes called the baby blues. These blues go away after 1 to 2 weeks. However, (meaning after ) depression lasts much longer and is more severe than the "baby blues." It can make you feel sad and hopeless. You may also fear that your baby will be harmed and worry about being a bad mother. What causes depression? The exact cause of depression is unknown. Changes in brain chemistry or structure are believed to play a big role in depression.It may be due to changes in your hormones during and after childbirth. You may also be tired from caring for your baby and adjusting to being a mother. All thesefactors may make you feel depressed. In some cases, your genes may also play a role. Depression can be treated There are many ways to treat depression. Talking to your healthcare provider is the firststep toward feeling better. When to call your healthcare provider Call your healthcare provider if you: Cry for no clear reason Have trouble sleeping, eating, and making choices Questions whether you can handle caring for a baby Have intense feelings of sadness, anxiety, or despair that prevent you from being able to do yourdaily tasks Resources National [place] of Mental Jfottl749-751-4649ogh.[facility].nih.gov National [place] on Mental Ijobehn658-739-6785bpr.vj.org Mental Health Femekeb047-523-5413emh.[facility].org National Suicide Kpzzjst073-678-3382 (800-SUICIDE) Bre rtivedi reviewed this educational content on 01/10/201719993483-9916 The [employer]. [address] [place] [address], [place] [address]. All rights reserved. This information is not intended as a substitute for professional medical care. Always follow your healthcare professional's instructions. documented in this encounter Progress Notes Tigist Wu RN - 09/27/2019 11:00 AM CDTNurse Visit:: Patient in clinic for incision check. Delivered 09/20/2019 Pt voiding and stooling without difficulties, not constipated . Pt eating well and drinking water daily. She is . care no concerns voiced has help at home. She denies depression/suicidal/homocial ideation, Denies any domestic violence. LT incision well approximated and intact /no superficial wound separation. No ss of infection, induration or wound opening noted. C/S inc care reviewed and warning S/S given ER warnings discussed, she voiced understanding and agrees with plan. documented in this encounter Plan of Treatment Date Type Specialty Care Team Description 10/11/2019 Routine Visit [facility] Abdoulaye Godwin, NARGISP [address], [place] [address] [phone] Health Maintenance Due Date Last Done Comments INFLUENZA VACCINE (#1) 2020 Postponed from 03/13/2019 (Refused) PNEUMOCOCCAL 0-64 YEARS COMBINED 07/21/2020 Postponed from 1996 SERIES (1 of 1 - PPSV23) (Refuse d) PAP SMEAR 01/26/2022 01/26/2019 DTaP,Tdap,and Td Vaccines (2 - 07/21/2029 07/21/2019 Td) documented as of this encounter Results Not on filedocumented in this encounter Visit Diagnoses Diagnosis Visit for wound check - Primary Encounter for other specified aftercare documented in this encounter Insurance Payer Benefit Plan / Subscriber ID Effective Phone Address T e Group [facility] xxxxxxxxx 2019-Prese [address] Medic aid HEALTH CHOICE - HEALTH [place] nt [id number] 1 MANAGED MEDICAID [place], [place] [phone] Guarantor Name Account Type Relation to Date of Phone Bill ing Patient Address Tyra Villalta Personal/Family Self 1990 [address] [place] (Home) [address] [place] [address] documented as of this encounter
--- OUTSIDE RECORDS SUMMARY | 2019-10-26 22:38 | XMS REPORT | Summary of Care ---
:1990 Author Organization [facility] - Health Address [address] [place] [address] Care Team Providers Name Role Phone RupertocandeJodie bedoya [facility] Primary Care Provider [phone] Encounter Details Date Type Department Care Team Description 09/20/2019 Orders Only [facility] Doctor Unassigned, No [address] [facility] [place] [address] [address] [place] [address] Allergies Active Allergy Reactions Severity Noted Date Comments Penicillin Nausea and/or Vomiting 01/26/2019 documented as of this encounter (statuses as of 09/30/2019) Medications Medication Sig Dispensed Refills Start Date End Date Status vitamin Take 1 tablet by 100 tablet 3 09/22/2019 Active w/FA mouth daily. May tabletIndications: substitute for what S/P section is in stock and covered by patient plan docusate calcium 240 Take 1 capsule by 60 capsule 1 09/22/2019 Active mg mouth once daily as capsuleIndications: needed for S/P section Constipation. May substitute for what is in stock and covered by patient plan ferrous sulfate 325 Take 1 tablet by 60 tablet 2 09/22/2019 Active mg (65 mg iron) mouth 2 (two) times tabletIndications: daily. May S/P section substitute for what is in stock and covered by patient plan ibuprofen 600 mg Take 1 tablet by 60 tablet 1 09/22/2019 Active tabletIndications: mouth every 6 (six) S/P section hours as needed (Pain). Take with food or milk. documented as of this encounter (statuses as of 09/30/2019) Active Problems Problem Noted Date Morbid obesity [...] as of this encounter (statuses as of 09/30/2019) Resolved Problems Problem Noted Date Resolved Date Chest pain 07/11/2019 07/11/2019 documented as of this encounter (statuses as of 09/30/2019) Immunizations Name Administration Dates Next Due TDAP [...] 10/11/2019 Routine Visit [facility] Abdoulaye Godwin, CNP [address] [place], [place] [address] [phone] Health Maintenance Due Date Last Done Comments INFLUENZA VACCINE (#1) 2020 Postponed from 03/13/2019 (Refused) PNEUMOCOCCAL 0-64 YEARS COMBINED 07/21/2020 Postponed from 1996 SERIES (1 of 1 - PPSV23) (Refuse d) PAP SMEAR 01/26/2022 01/26/2019 DTaP,Tdap,and Td Vaccines (2 - 07/21/2029 07/21/2019 Td) documented as of this encounter Procedures Procedure Name Priority Date/Time Associated Diagnosis Comme nts HOSPITAL ADMISSION Routine 09/20/2019 12:01 AM CDT documented in this encounter Results Not on filedocumented in this encounter Insurance Payer Benefit Plan / Subscriber ID Effective Phone Address T [facility] xxxxxxxxx 2019-[place] [address] Medic aid HEALTH CHOICE - HEALTH CHOICE nt [id number] 1 MANAGED MEDICAID [place], [place] [id number] documented as of this encounter
--- OUTSIDE RECORDS SUMMARY | 2019-10-26 22:39 | XMS REPORT | Summary of Care ---
:1990 Author Organization [facility] Address [address] [place] [address] Care Team Providers Name Role Phone Jodie Godwin QUETA Primary Care Provider [phone] Reason for Visit Reason Comments Care teleheatlh (Routine) Status Reason Specialty Diagnoses / Referred By Referred To Procedures Contact Contact New Request [facility]ell[facility] Diagnoses S/P section Ramos Procedures DISCHARGE FOLLOW-UP: WOUND CARE COORDINATOR CLINIC Destini Maki MD [address] [facility] [id number] [place] [address] Encounter Details Date Type Department Care Team Description 10/12/2019 Telemedicine Visit [facility]- Tato, Pos tpartum care and NIECY Feng examination of [address] lactating mother [place], [place] (Primary [place]x) [id number] MEHRD[address] A [phone] [place] [address] Allergies Active Allergy Reactions Severity Noted Date Comments Penicillin Nausea and/or Vomiting 01/26/2019 documented as of this encounter (statuses as of 10/12/2019) Medications Medication Sig Dispensed Refills Start Date [...] as of this encounter (statuses as of 10/12/2019) Active Problems Problem Noted Date care and examination of lactating mother Morbid obesity with body mass index of 50 or higher Gestational hypertension, antepartum 09/20/2019 Tobacco use during 01/26/2019 documented as of this encounter (statuses as of 10/12/2019) Resolved Problems Problem Noted Date Resolved Date 37 weeks gestation of 09/20/2019 10/12/19 20 Chest pain 07/11/2019 07/11/2019 URI (upper respiratory infection) 07/11/20192019 Generalized body aches 07/11/2019 10/12/2019 Influenza B 07/11/2019 10/12/2019 Screening, , isoimmunization 04/18/2019 BMI 50.0-59.9, adult 04/18/2019 10/12/2019 BMI 50.0-59.9, adult 04/18/2019 10/12/2019 Supervision of high-risk 01/26/201910/11 Multiparity 01/26/2019 10/12/2019 History of section 01/26/2019 10/12/2019 Overview: X2 pending ROR Morbid obesity 01/26/2019 10/12/2019 documented as of this encounter (statuses as of 10/12/2019) Immunizations Name Administration Dates Next Due TDAP [...] drinks on one occasion? No t asked Sex Assigned at Date Recorded Not on file Job Start Date Occupation Industry Not on file Not on file Not on file Travel History Travel Start Travel End No recent travel history available. documented as of this encounter Last Filed Vital Signs Not on filedocumented in this encounter Progress Notes Jodie Godwin, CNP - 10/12/2019 9:45 AM CDT TELEHEALTH NOTE Verbal consent obtained from Patient: Tyra Villalta due to the COVID-19 pandemic for telehealth services provided below. Communication with patient was conducted via Telephone. Location of Patient: Home Location of Provider: home Date of Service: 10/12/2019 Chief Complaint: visit HPI: Tyra Villalta is a 28 year old female with Past Medical History: Diagnosis Date Chest pain 07/11/2019 Gestational hypertension, antepartum 09/20/2019 Pap smear abnormality of cervix 2009 STD (sexually transmitted disease) 2009 Genital warts The patient is here for a routine PP visit. She has no complaints today. She states that she is her , is bonding well, and coping well with less sleep. She reports that she has no pain, small lochia, and denies all s/s of PP depression. She wants ocp for PP contraception. MEDICATIONS: Current Outpatient Medications Medication Sig Dispense Refill docusate calcium 240 mg capsule Take 1 capsule by mouth once daily as needed for Constipation. May substitute for what is in stock and covered by patient plan 60 capsule 1 ferrous sulfate 325 mg (65 mg iron) tablet Take 1 tablet by mouth 2 (two) times daily. May substitute for what is in stock and covered by patient plan 60 tablet 2 ibuprofen 600 mg tablet Take 1 tablet by mouth every 6 (six) hours as needed (Pain). Take with food or milk. 60 tablet 1 vitamin w/FA tablet Take 1 tablet by mouth daily. May substitute for what is in stock and covered by patient plan 100 tablet 3 No current facility-administered medications for this visit. ROS Constitutional: negative Eyes: negative Ears: negative Nose/Sinuses: negative Mouth/Throat: negative Cardiovascular: negative Respiratory: negative Gastrointestinal: negative Genitourinary: Vaginal bleeding Musculoskeletal: negative Integumentary: Reports c section site well approximated, no redness, or tenderness noted per patient Neuro: negative Psych: negative Endocrine: negative Hem/Lymph: negative Allergy/Immunology: Negative TELEHEALTH EXAM Constitutional: alert and in no distress Respiratory: breathing comfortably Neuro: answers questions appropriately Psych: normal affect ASSESSMENT/ PLAN Tyra Villalta is a 28 year old female with PMH as above presenting with: 1. care and examination of lactating mother Comment: routine Plan: return to clinic in 3 weeks for control visit After visit summary (AVS ) documentation will be available through [employer] for this encounter. A total of 9 minutes was spent on the Telephone with the patient. NIECY Mckeon documented in this encounter Plan of Treatment Date Type Specialty Care Team Description 11/02/2019 Telemedicine Visit [facility] Nestor Godwin WHCNP [address] [place] [place], [place] [address] [phone] Health Maintenance Due Date Last Done Comments INFLUENZA VACCINE (#1) 2020 Postponed from 03/13/2019 (Refused) PNEUMOCOCCAL 0-64 YEARS COMBINED 07/21/2020 Postponed from 1996 SERIES (1 of 1 - PPSV23) (Refuse d) PAP SMEAR 01/26/2022 01/26/2019 DTaP,Tdap,and Td Vaccines (2 - 07/21/2029 07/21/2019 Td) documented as of this encounter Results Not on filedocumented in this encounter Visit Diagnoses Diagnosis care and examination of lacta ting mother - Primary documented in this encounter Insurance Payer Benefit Plan / Subscriber ID Effective Phone Address T [facility] xxxxxxxxx 2019-Tari [place] Medic aid HEALTH CHOICE - HEALTH CHOICE nt [id number] 1 MANAGED MEDICAID [place], [place] [id number] Guarantor Name Account Type Relation to Date of Phone Bill ing Patient Address Tyra Villalta Personal/Family Self 1990 [address] [facility] ([address]) [address] [place] [id number] documented as of this encounter
[2019-10-26] MEDS ORDERED: ONDANSETRON 4 MG/2 ML VIAL ONE (22:54)
[2019-10-26] MEDS ORDERED: NA CHLORIDE 0.9% 1,000 ML ONE (22:54)
[2019-10-26] MEDS ORDERED: MORPHINE 4 MG/ML SYR ONE (22:54)
[2019-10-26 23:04] LABS: Urine Glucose NEGATIVE (NEG); Urine Specific Gravity >1.030 (1.005-1.030)
[2019-10-26 23:04] LABS: Urine Bacteria 20-50 /HPF (<20); Urine Culture Reflex Order NOT NEEDED; Urine RBC <5 /HPF (NONE SEEN)
[2019-10-26 23:05] LABS: Urine Blood TRACE (NEG); Urine Protein NEGATIVE (NEG); Urine pH 5.5 (5.0-7.0)
[2019-10-26 23:12] LABS: Absolute Lymphocytes (CBC) 2.4 K/uL (0.7-4.9); Basophils % 0.7 % (0-1.3); Hematocrit 40.9 % (36.0-45.0); Lymphocytes % 28.4 % (15.3-44.8); MPV 8.8 fL (7.6-11.3); RBC Red Blood Cell Count 4.96 M/uL (3.86-4.86)
[2019-10-26 23:28] LABS: ALT/SGPT 49 U/L (12-78); AST/SGOT 17 U/L (15-37); Albumin 3.8 g/dL (3.4-5.0); Alkaline Phosphatase 108 U/L (45-117); BUN Blood Urea Nitrogen 18 mg/dL (7-18); Bicarbonate 27 mmol/L (21-32); Bilirubin Direct < 0.1 mg/dL (0-0.2); Bilirubin Total 0.2 mg/dL (0.2-1.0); Glucose Level 98 mg/dL (74-106); Lipase 202 U/L (73-393); Potassium 4.1 mmol/L (3.5-5.1); Protein, Total 7.7 g/dL (6.4-8.2); Sodium Level 141 mmol/L (136-145)
[2019-10-27] MEDS ORDERED: ONDANSETRON 4 MG/2 ML VIAL ONE (00:37)
[2019-10-27] MEDS ORDERED: MORPHINE 4 MG/ML SYR ONE (02:04)
--- NOTE | 2019-10-27 02:14 | EDPHYS ---
Physician Documentation [facility] Name: Tyra Villalta Age: 28 yrs Sex: Female : 1990 Arrival Date: 10/26/2019 Time: 22:27 Bed 13 Private MD: MARISABEL Physician Felton Salinas HPI: 10/25 22:40 This 28 yrs old Female presents to ER via Ambulatory with complaints of zack Abdominal Pain. 22:40 The patient presents with abdominal pain in the left upper quadrant, in the left lower zack quadrant, abdominal distention in the upper abdomen, in the lower abdomen. Onset: The symptoms/episode began/occurred 2 day(s) ago. The symptoms do not radiate. Associated signs and symptoms: Pertinent positives: nausea. The symptoms are described as crampy. Modifying factors: The symptoms are alleviated by nothing, the symptoms are aggravated by movement, pressure, touching the area. Severity of pain: At its worst the pain was moderate in the emergency department the pain is unchanged. The patient has not experienced similar symptoms in the past. Historical: - Allergies: 22:39 PENICILLINS; ll1 - PMHx: 22:39 Hypertension; ll1 - PSHx: 22:39 ; ll1 - Immunization history:: Flu vaccine is not up to date. - Social history:: Smoking status: Patient reports the use of cigarette tobacco products, smokes one-half pack cigarettes per day, Patient uses alcohol, only on a social basis. Patient/guardian denies using street drugs. - Family history:: not pertinent. ROS: 22:40 Constitutional: Negative for fever, chills, and weight loss, Eyes: Negative for injury, zack pain, redness, and discharge, ENT: Negative for injury, pain, and discharge, Neck: Negative for injury, pain, and swelling, Cardiovascular: Negative for chest pain, palpitations, and edema, Respiratory: Negative for shortness of breath, cough, wheezing, and pleuritic chest pain, Back: Negative for injury and pain, : Negative for injury, bleeding, discharge, and swelling, MS/Extremity: Negative for injury and deformity, Skin: Negative for injury, rash, and discoloration, Neuro: Negative for headache, weakness, numbness, tingling, and seizure, Psych: Negative for depression, anxiety, suicide ideation, homicidal ideation, and hallucinations, Allergy/Immunology: Negative for hives, rash, and allergies, Endocrine: Negative for neck swelling, polydipsia, polyuria, polyphagia, and marked weight changes, Hematologic/Lymphatic: Negative for swollen nodes, abnormal bleeding, and unusual bruising. 22:40 Abdomen/GI: Positive for abdominal pain, of the left upper quadrant and left lower quadrant. 22:40 Back: Negative for decreased range of motion, pain at rest, pain with movement. Exam: 22:40 Constitutional: This is a well developed, well nourished patient who is awake, alert, zack and in no acute distress. Head/Face: Normocephalic, atraumatic. Eyes: Pupils equal round and reactive to light, extra-ocular motions intact. Lids and lashes normal. Conjunctiva and sclera are non-icteric and not injected. Cornea within normal limits. Periorbital areas with no swelling, redness, or edema. ENT: Nares patent. No nasal discharge, no septal abnormalities noted. Tympanic membranes are normal and external auditory canals are clear. Oropharynx with no redness, swelling, or masses, exudates, or evidence of obstruction, uvula midline. Mucous membranes moist. Neck: Trachea midline, no thyromegaly or masses palpated, and no cervical lymphadenopathy. Supple, full range of motion without nuchal rigidity, or vertebral point tenderness. No Meningismus. Chest/axilla: Normal chest wall appearance and motion. Nontender with no deformity. No lesions are appreciated. Cardiovascular: Regular rate and rhythm with a normal S1 and S2. No gallops, murmurs, or rubs. Normal PMI, no JVD. No pulse deficits. Respiratory: Lungs have equal breath sounds bilaterally, clear to auscultation and percussion. No rales, rhonchi or wheezes noted. No increased work of breathing, no retractions or nasal flaring. Back: No spinal tenderness. No costovertebral tenderness. Full range of motion. Skin: Warm, dry with normal turgor. Normal color with no rashes, no lesions, and no evidence of cellulitis. MS/ Extremity: Pulses equal, no cyanosis. Neurovascular intact. Full, normal range of motion. Neuro: Awake and alert, GCS 15, oriented to person, place, time, and situation. Cranial nerves II-XII grossly intact. Motor strength 5/5 in all extremities. Sensory grossly intact. Cerebellar exam normal. Normal gait. Psych: Awake, alert, with orientation to person, place and time. Behavior, mood, and affect are within normal limits. 22:40 Abdomen/GI: Inspection: distension, Bowel sounds: normal, Palpation: moderate abdominal tenderness, in the left upper quadrant and left lower quadrant, Liver: no appreciated palpable abnormalities, Hernia: not appreciated. 10/26 02:06 Skin: Appearance: normal except for affected area, Color: normal in color, Temperature: [facility] normal temperature, Moisture: normal moisture, petechiae, not noted, ecchymosis, not noted, flushing, not noted, diaphoresis is not appreciated, no rash present. 02:14 Musculoskeletal/extremity: DVT Exam: No signs of deep vein thrombosis. no pain, no zack swelling, no tenderness, negative Homans' sign noted on exam, no appreciated bluish discoloration, no erythema, no increased warmth. Vital Signs: 10/25 22:35 BP 124 / 84; Pulse 71; Resp 17; Temp 98.2; Pulse Ox 100% ; Pain 8/10; ll1 10/26 00:05 BP 111 / 72; Pulse 56; Resp 16; Pulse Ox 98% on R/A; jb4 01:30 BP 108 / 73; Pulse 51; Resp 16; Pulse Ox 99% on R/A; jb4 02:30 BP 125 / 91; Pulse 61; Resp 16; Pulse Ox 100% on R/A; jb4 MDM: 10/25 22:31 Patient medically screened. zack 22:33 Patient medically screened. zack 22:43 Differential diagnosis: bowel obstruction, diverticulitis, pancreatitis, urinary tract zack infection. 22:44 ED course: 24 hrs of pain left side of abdomen, a0, c sectio x 5 weeks ago, c sec zack incision healing well, no erythema. 22:45 Data reviewed: vital signs, nurses notes, lab test result(s), radiologic studies, CT zack scan. 10/26 02:14 ED course: ct essentially neg, mild uti, dw patient plan, abx and follow up pcp, return zack if worsens. 10/25 22:40 Order name: Basic Metabolic Panel; Complete Time: 23:42 zack 10/25 22:40 Order name: CBC with Diff; Complete Time: 23:42 zack 10/25 22:40 Order name: Creatinine for Radiology; Complete Time: 23:42 [facility] 10/25 22:40 Order name: Hepatic Function; Complete Time: 23:42 [facility] 10/25 22:40 Order name: Lipase; Complete Time: 23:42 [facility] 10/25 22:51 Order name: Urine Culture [facility] 10/25 22:40 Order name: CT Abd/Pelvis - PO and IV Contrast [facility] 10/25 22:51 Order name: Urine Microscopic Only; Complete Time: 23:13 [facility] 10/25 22:54 Order name: Urine Dipstick--Ancillary (enter results); Complete Time: 23:13 co 10/25 22:54 Order name: Urine --Ancillary (enter results); Complete Time: 23:13 co 10/25 22:40 Order name: IV Saline Lock; Complete Time: 23:08 [facility] 10/25 22:40 Order name: Labs collected and sent; Complete Time: 23:08 [facility] 10/25 22:40 Order name: Urine Dipstick-Ancillary (obtain specimen); Complete Time: 22:43 [facility] 10/25 22:40 Order name: Urine Test (obtain specimen); Complete Time: 22:43 [facility] Administered Medications: 10/25 22:58 Drug: Zofran (Ondansetron) 4 mg Route: IVP; Site: right antecubital; [facility] 23:30 Follow up: Response: No adverse reaction; Nausea is decreased 23:00 Drug: NS 0.9% 1000 ml Route: IV; Rate: 1 bolus; Site: right antecubital; [facility] 10/26 01:00 Follow up: Response: No adverse reaction; IV Status: Completed infusion; IV Intake: jb4 1000ml 10/25 23:00 Drug: morphine 4 mg {Note: Rass score 0.} Route: IVP; Site: right antecubital; [facility] 23:30 Follow up: Response: No adverse reaction; Pain is decreased; RASS: Alert and Calm (0) 10/26 00:37 Drug: Zofran (Ondansetron) 4 mg Route: IVP; Site: left antecubital; [facility] 01:00 Follow up: Response: No adverse reaction; Nausea is decreased 02:08 Drug: morphine 4 mg {Note: Rass Score 0.} Route: IVP; Site: left antecubital; jb4 02:38 Follow up: Response: No adverse reaction; Pain is decreased; RASS: Alert and Calm (0) jb4 02:25 Drug: Rocephin 1 grams Route: IV; Rate: per protocol; Site: left antecubital; jb4 02:27 Follow up: Response: No adverse reaction; IV Status: Completed infusion; IV Intake: [id number] Disposition: 10/27/19 02:13 Discharged to Home. Impression: Urinary tract infection, site not specified, Abdominal tenderness, Obesity, unspecified, Pleural effusion in conditions classified elsewhere - trace bilateral. - Condition is Stable. - Discharge Instructions: Abdominal Pain, Adult, Obesity, Adult, Pleural Effusion, Urinary Tract Infection, Adult, Urinary Tract Infection, Adult, [id number], Abdominal Pain, Adult, [id number]. - Prescriptions for Bentyl 20 mg Oral Tablet - take 1 tablet by ORAL route every 6 hours As needed; 20 tablet. Vitamin 27- 0.8 mg Oral Tablet - take 1 tablet by ORAL route once daily; 30 tablet. Bactrim DS 800- 160 mg Oral Tablet - take 1 tablet by ORAL route every 12 hours for 7 days; 14 tablet. - Medication Reconciliation Form, Thank You Letter, Antibiotic Education, Prescription Opioid Use form. - Follow up: Private Physician; When: 2 - 3 days; Reason: Recheck today's complaints, Continuance of care, Re-evaluation by your physician. - Problem is new. - Symptoms have improved. Signatures: Dispatcher [employer] EDFelton Sunshine MD MD cha Bryson, James, RN RN jb4 Mk Jenkins RN RN ll1 Corrections: (The following items were deleted from the chart) 02:49 02:13 10/27/2019 02:13 Discharged to Home. Impression: Urinary tract infection, site jb4 not specified; Abdominal tenderness; Obesity, unspecified; Pleural effusion in conditions classified elsewhere - trace bilateral. Condition is Stable. Forms are Medication Reconciliation Form, Thank You Letter, Antibiotic Education, Prescription Opioid Use. Follow up: Private Physician; When: 2 - 3 days; Reason: Recheck today's complaints, Continuance of care, Re-evaluation by your physician. Problem is new. Symptoms have improved. zack
--- NOTE | 2019-10-27 02:14 | ER ---
Nurse's Notes [facility] Name: Tyra Villalta Age: 28 yrs Sex: Female : 1990 Arrival Date: 10/26/2019 Time: 22:27 Bed 13 Private MD: Diagnosis: Urinary tract infection, site not specified;Abdominal tenderness;Obesity, unspecified;Pleural effusion in conditions classified elsewhere-trace bilateral Presentation: 10/25 22:35 Chief complaint: Patient states: LLQ abdominal pain for 2 days. Denies N/V/D. No fever. ll1 Currently breast feeding. Had on September 19. No problems since . Coronavirus screen: Proceed with normal triage. Patient denies a cough. Patient denies shortness of breath or difficulty breathing. Patient denies measured and/or subjective temperature greater than 100.4F prior to today's visit. Patient denies travel on a cruise ship or to a country the [facility] currently lists as an affected area. Patient denies contact with known and/or suspected case of COVID-19. Ebola Screen: Patient denies travel to an Ebola-affected area in the 21 days before illness onset. Initial Sepsis Screen: Does the patient meet any 2 criteria? No. Patient's initial sepsis screen is negative. Does the patient have a suspected source of infection? No. Patient's initial sepsis screen is negative. Risk Assessment: Do you want to hurt yourself or someone else? Patient reports no desire to harm self or others. Onset of symptoms was October 25, 2019. 22:35 Method Of Arrival: Ambulatory ll1 22:35 Acuity: BREANNA 3 ll1 Historical: - Allergies: 22:39 PENICILLINS; ll1 - PMHx: 22:39 Hypertension; ll1 - PSHx: 22:39 ; ll1 - Immunization history:: Flu vaccine is not up to date. - Social history:: Smoking status: Patient reports the use of cigarette tobacco products, smokes one-half pack cigarettes per day, Patient uses alcohol, only on a social basis. Patient/guardian denies using street drugs. - Family history:: not pertinent. Screenin:44 Fall Risk None identified. jb4 22:45 Abuse screen: Denies threats or abuse. Nutritional screening: No deficits noted. jb4 Tuberculosis screening: No symptoms or risk factors identified. Assessment: 22:45 General: Appears in no apparent distress. uncomfortable, Behavior is calm, cooperative, jb4 appropriate for age. Pain: Complains of pain in left lower quadrant Pain does not radiate. Pain currently is 8 out of 10 on a pain scale. Neuro: Level of Consciousness is awake, alert, obeys commands, Oriented to person, place, time, situation. Cardiovascular: Patient's skin is warm and dry. Respiratory: Airway is patent Respiratory effort is even, unlabored, Respiratory pattern is regular, symmetrical. GI: Abdomen is non-distended, obese, Bowel sounds present X 4 quads. Abd is soft X 4 quads Abd is non tender in right upper quadrant, left upper quadrant and right lower quadrant Abdomen is tender to palpation in left lower quadrant. : No signs and/or symptoms were reported regarding the genitourinary system. EENT: No signs and/or symptoms were reported regarding the EENT system. Derm: Skin is intact, Skin is pink, warm \T\ dry. Musculoskeletal: Circulation, motion, and sensation intact. Range of motion: intact in all extremities. 10/26 00:00 Reassessment: Patient appears in no apparent distress at this time. Patient and/or jb4 family updated on plan of care and expected duration. Pain level reassessed. Patient is alert, oriented x 3, equal unlabored respirations, skin warm/dry/pink. 01:00 Reassessment: Patient appears in no apparent distress at this time. Patient and/or jb4 family updated on plan of care and expected duration. Pain level reassessed. Patient is alert, oriented x 3, equal unlabored respirations, skin warm/dry/pink. 02:44 Reassessment: Patient appears in no apparent distress at this time. Patient and/or jb4 family updated on plan of care and expected duration. Pain level reassessed. Patient is alert, oriented x 3, equal unlabored respirations, skin warm/dry/pink. PT verbalized understanding of d/c and follow up instructions. Questions addressed. PT ambulated out of ED with steady gait. Vital Signs: 10/25 22:35 BP 124 / 84; Pulse 71; Resp 17; Temp 98.2; Pulse Ox 100% ; Pain 8/10; ll1 10/26 00:05 BP 111 / 72; Pulse 56; Resp 16; Pulse Ox 98% on R/A; jb4 01:30 BP 108 / 73; Pulse 51; Resp 16; Pulse Ox 99% on R/A; jb4 02:30 BP 125 / 91; Pulse 61; Resp 16; Pulse Ox 100% on R/A; jb4 ED Course: 10/25 22:27 Patient arrived in ED. cl3 22:29 Felton Salinas MD is Attending Physician. zack 22:37 Woo Chance, AGAPITO is Primary Nurse. jb4 22:38 Triage completed. ll1 22:39 Arm band placed on Patient placed in an exam room, on a stretcher. ll1 22:44 Patient has correct armband on for positive identification. Bed in low position. Call jb4 light in reach. Side rails up X 1. Pulse ox on. NIBP on. 23:08 Hepatic Function Sent. jb4 23:08 Creatinine for Radiology Sent. jb4 23:09 CBC with Diff Sent. jb4 23:09 Basic Metabolic Panel Sent. jb4 23:09 Lipase Sent. 4 10/26 00:40 Inserted saline lock: 20 gauge in left antecubital area, using aseptic technique. Blood sg collected. 01:23 CT Abd/Pelvis - PO and IV Contrast In Process Unspecified. EDMS 02:48 No provider procedures requiring assistance completed. IV discontinued, intact, jb4 bleeding controlled, No redness/swelling at site. Pressure dressing applied. Administered Medications: 10/25 22:58 Drug: Zofran (Ondansetron) 4 mg Route: IVP; Site: right antecubital; [facility] 23:30 Follow up: Response: No adverse reaction; Nausea is decreased jb 23:00 Drug: NS 0.9% 1000 ml Route: IV; Rate: 1 bolus; Site: right antecubital; 4 10/26 01:00 Follow up: Response: No adverse reaction; IV Status: Completed infusion; IV Intake: jb4 1000ml 10/25 23:00 Drug: morphine 4 mg {Note: Rass score 0.} Route: IVP; Site: right antecubital; [facility] 23:30 Follow up: Response: No adverse reaction; Pain is decreased; RASS: Alert and Calm (0) [facility] 10/26 00:37 Drug: Zofran (Ondansetron) 4 mg Route: IVP; Site: left antecubital; jb4 01:00 Follow up: Response: No adverse reaction; Nausea is decreased 4 02:08 Drug: morphine 4 mg {Note: Rass Score 0.} Route: IVP; Site: left antecubital; jb4 02:38 Follow up: Response: No adverse reaction; Pain is decreased; RASS: Alert and Calm (0) 4 02:25 Drug: Rocephin 1 grams Route: IV; Rate: per protocol; Site: left antecubital; 4 02:27 Follow up: Response: No adverse reaction; IV Status: Completed infusion; IV Intake: [id number] Intake: 01:00 IV: 1000ml; Total: 1000ml. 02:27 IV: 10ml; Total: 1010ml. 4 Outcome: 02:13 Discharge ordered by . zack 02:48 Discharged to home with family. 02:48 Condition: stable 02:48 Discharge instructions given to patient, Instructed on discharge instructions, follow up and referral plans. medication usage, Demonstrated understanding of instructions, follow-up care, medications, Prescriptions given X 3. 02:49 Patient left the ED. jb4 Signatures: Dispatcher [employer] EDMS Tirso Georges RN RN sg Anderson, Corey, MD MD cha Bryson, James, RN RN jb4 Tru Jenkins cl3 Mk Jenkins RN RN ll1 Corrections: (The following items were deleted from the chart) 02:47 04 22:30 Abuse screen: Denies threats or abuse. [place] [id number] 10/26 02:47 10/25 22:30 Nutritional screening: No deficits noted. [place] [id number] 10/26 02:47 10/25 22:30 Tuberculosis screening: No symptoms or risk factors identified. [place] [id number] 10/26 02:47 10/25 22:30 Fall Risk None identified. 4 [facility] 10/26 02:48 02:48 Patient did not have IV access during this emergency room visit. jb4 jb
[2019-10-27] MEDS ORDERED: CEFTRIAXONE/SWI 1gm 1 GM/10 ML SYR ONE (02:34)
[2019-10-27 02:58] VITALS: TEMP 98.2
[2019-10-27 03:03] VITALS: BP 125/91; O2SAT 100
--- NOTE | 2019-10-27 09:45 | RAD REPORT ---
EXAM DESCRIPTION: Abdomen Pelvis W Contrast CLINICAL HISTORY: ABD PAIN COMPARISON: None. TECHNIQUE: CT ABDOMEN PELVIS WITH IV CONTRAST on 10/26/2019 10:40 PM CDT This exam was performed according to our departmental dose-optimization program, which includes autom ated exposure control, adjustment of the mA and/or kV according to patient size and/or use of iterati ve reconstruction technique. FINDINGS: There are trace bilateral pleural effusions. Abdomen: The liver is normal in appearance. There is no biliary dilatation. Gallbladder is normal in appearance. The pancreas and spleen are normal in appearance. Adrenal glands and left kidney are norm al. There is a 1 mm lower pole right renal calculus without hydronephrosis. Abdominal aorta is normal in course and caliber without aneurysm. There is no free air. There is no r etroperitoneal adenopathy. Pelvis: There is no bowel obstruction. Urinary bladder is unremarkable. There is no free fluid. Uteru s is normal in size. Appendix is normal. Skeleton: There are no acute osseous findings. No suspicious bony lesions. IMPRESSION: Minimal right nephrolithiasis without hydronephrosis. Trace pleural effusions. Electronically signed by: Lucas Layne MD 10/27/2019 1:31 AM CDT Due to temporary technical issues with the PACS/Fluency reporting system, reports are being signed by the in house radiologist as a courtesy to ensure prompt reporting. The interpreting radiologist is f ully responsible for the content of the report.
== END 2019-10-27 02:49 | disposition home or self-care (01) ==
LOC: ER 22:25
DX: N39.0 Urinary tract infection, site not specified (principal); J91.8 Pleural effusion in other conditions classified elsewhere; E66.9 Obesity, unspecified; I10 Essential (primary) hypertension; F17.210 Nicotine dependence, cigarettes, uncomplicated; Z88.0 Allergy status to penicillin
CPT/HCPCS: 87088; 85025; 87086; 80048; 36415; 81025; 80076; 83690; 74177; 99284; Q9967; J0696; J7030; J2405 ×2; 81003; 81015; 96361; 96374; 96375

== ENCOUNTER 2020-01-25 21:12 | Emergency (ER) | payer OTHER ==
--- OUTSIDE RECORDS SUMMARY | 2020-01-25 21:13 | XMS REPORT | Continuity of Care Document ---
:1990 Author Organization [facility] t Address [address] [place] [address] Care Team Providers Name Role Phone Gayathri Moy Attending Clinician Visit, Nurse Attending Clinician Unavailable Problems This patient has no known problems. Allergies, Adverse Reactions, Alerts This patient has no known allergies or adverse reactions. Medications This patient has no known medications. Procedures This patient has no known procedures. Encounters Start End Encounter Admission Attending Care Care Encounter Source Date/Time Date/Time Type Type Clinicians Facility Department ID 2020-01-17 2020-01-17 Telephone Tato NCJULIUS [id number] 00:00:00 00:00:00 Jodie Trinh CHIEF SECURITY AND SAFETY OFFICER [id number] REGIONAL [id number] MATERNAL [id number] & CHILD 107 [facility] 2019-11-15 2019-11-15 Nurse Visit, [facility] [id number] 08:58:04 09:22:08 Visit Huan-Rmchp CHIEF SECURITY AND SAFETY OFFICER [id number] Nurse REGIONAL [id number] MATERNAL [id number] & CHILD 107 [facility] 2019-11-01 2019-11-01 Telemedici Tato NCJULIUS [id number] 10:02:16 10:10:30 ne Visit Jodie Trinh CHIEF SECURITY AND SAFETY OFFICER [id number] REGIONAL [id number] MATERNAL [id number] & CHILD 107 [facility] Results This patient has no known results.
--- OUTSIDE RECORDS SUMMARY | 2020-01-25 21:14 | XMS REPORT | Summary of Care ---
:1990 Author Organization [facility] Address [address] [place] [address] Care Team Providers Name Role Phone Jodie Godwin [facility] Primary Care Provider [phone] Reason for Visit Reason Comments CONTROL telehealth Encounter Details Date Type Department Care Team Description 11/01[facility] other [place] Jodie Trinh, contraceptive [address] [facility] management (Primary [place], [place] [address] [place]) [id number] [address] [phone] [place] [address] Allergies Active Allergy Reactions Severity Noted Date Comments Penicillin Nausea and/or Vomiting 01/26/2019 documented as of this encounter (statuses as of 11/01/2019) Medications Medication Sig Dispensed Refills Start Date [...] as of this encounter (statuses as of 11/01/2019) Active Problems Problem Noted Date care and examination of lactating mother Morbid obesity with body mass index of 50 or higher Gestational hypertension, antepartum 09/20/2019 Tobacco use during 01/26/2019 documented as of this encounter (statuses as of 11/01/2019) Resolved Problems Problem Noted Date Resolved Date [...] as of this encounter (statuses as of 11/01/2019) Immunizations Name Administration Dates Next Due TDAP [...] encounter Progress Notes Jodie Godwin, WHCNP - 11/01/2019 10:00 AM CDT TELEHEALTH NOTE Verbal consent obtained from Patient: Tyra Villalta due to the COVID-19 pandemic for telehealth services provided below. Communication with patient was conducted via Telephone due to patient unable to obtain video call option. Location of Patient: Home Location of Provider: Clinic Date of Service: 11/01/2019 Chief Complaint: control HPI: Tyra Villalta is a 28 year old female with Past Medical History: Diagnosis Date Chest pain 07/11/2019 Gestational hypertension, antepartum 09/20/2019 Pap smear abnormality of cervix 2008 STD (sexually transmitted disease) 2008 Genital warts The patient visit was conducted via telehealth on today. She reports she is doing well with no issues or concerns today. She reports she desires to start depo for control on today. She verbalizesthe last time she had intercourse was last night with out condom use. She reports she can take an athome UPT before her next visit COVID-19 SCREEN: ? Recent history of travel to a high-risk area: No ? Recent sick contacts before or during admission: No ? Contact with a proven COVID-19 case: No ? Symptoms of COVID-19, which include fever, dry cough, fatigue, difficulty breathing: No This patient is considered low risk for COVID-19 infection. MEDICATIONS: Current Outpatient Medications Medication Sig Dispense [...] Cardiovascular: negative Respiratory: negative Gastrointestinal: negative Genitourinary: negative Musculoskeletal: negative Integumentary: negative Neuro: negative Psych: negative Endocrine: negative Hem/Lymph: negative Allergy/Immunology: negative TELEHEALTH EXAM Constitutional: alert and in no distress Respiratory: breathing comfortably Neuro: answers questions appropriately Psych: normal affect ASSESSMENT/ PLAN Return to clinic in 2 weeks for birthcontrol start-depo Tyra Villalta is a 28 year old female with PMH as above presenting with: 1. Encounter for other contraceptive management Comment: desires depo Plan: start depo in 2 weeks - POCT TEST Patient advised on remaining abstinent prior to coming in for depo, she verbalized understanding. After visit summary (AVS ) documentation will be available through [employer] for this encounter. A total of 6 minutes was spent on the Telephone due to patient unable to obtain video call option. NIECY Mckeon documented in this encounter Plan of Treatment Date Type Specialty Care Team Description 11/15/2019 Nurse Visit OB Satellites Visit, [facility] Nurse Name Type Priority Associated Diagnoses Order S chedule POCT TEST LAB Routine Encounter for other O rdered: 11/01/2019 contraceptive management Health Maintenance Due Date Last Done Comments INFLUENZA VACCINE (#1) 2020 Postponed from 03/13/2019 (Refused) PNEUMOCOCCAL 0-64 YEARS COMBINED 07/21/2020 Postponed from 1996 SERIES (1 of 1 - PPSV23) (Refuse d) PAP SMEAR 01/26/2022 01/26/2019 DTaP,Tdap,and Td Vaccines (2 - 07/21/2029 07/21/2019 Td) documented as of this encounter Results Not on filedocumented in this encounter Visit Diagnoses Diagnosis Encounter for other contraceptive manage ment - Primary documented in this encounter Insurance Payer Benefit Plan / Subscriber ID Effective Phone Address T [facility] xxxxxxxxx 2019-Prese [address] Medic aid HEALTH CHOICE - HE[place] nt [id number] 1 MANAGED MEDICAID [place], [place] [id number] Guarantor Name Account Type Relation to Date of Phone Bill ing Patient Address Tyra Villalta Personal/Family Self 1990 [address] [facility] [address] [place] [address] documented as of this encounter
--- OUTSIDE RECORDS SUMMARY | 2020-01-25 21:14 | XMS REPORT | Summary of Care ---
:1990 Author Organization [facility] Address [address] [place] [address] Care Team Providers Name Role Phone Jodie Godwin [facility] Primary Care Provider [phone] Reason for Visit Reason Comments NURSE VISIT Encounter Details Date Type Department Care Team Description 11/15/[address] [facility] Nestor Godwin [facility] [address] [place] [address] Encounter for female [place] Visit, [facility] Nurse control (Primary [address]) [place] [address] Allergies Active Allergy Reactions Severity Noted Date Comments Penicillin Nausea and/or Vomiting 01/26/2019 documented as of this encounter (statuses as of 11/15/2019) Medications Medication Sig Dispensed Refills Start Date [...] needed (Pain). Take with food or milk. Hospital, Clinic, or Other Ordered Dose Route Frequency Start Date End Date Status Facility Administered Medication medroxyPROGESTERone 150 mg IM [id number] 11/15/2019 Active (DEPO-PROVERA) injection 150 mgIndications: Encounter for female control documented as of this encounter (statuses as of 11/15/2019) Active Problems Problem Noted Date care and examination of lactating mother Morbid obesity with body mass index of 50 or higher Gestational hypertension, antepartum 09/20/2019 Tobacco use during 01/26/2019 documented as of this encounter (statuses as of 11/15/2019) Resolved Problems Problem Noted Date Resolved Date [...] as of this encounter (statuses as of 11/15/2019) Immunizations Name Administration Dates Next Due TDAP [...] Travel End No recent travel history available. COVID-19 Exposure Response Date Recorded In the last month, have you been in contact with No / Unsure 11/15/2019 9:00 AM CDT someone who was confirmed or suspected to have Coronavirus / COVID-19? documented as of this encounter Last Filed Vital Signs Vital Sign Reading Time Taken Comments Blood Pressure 116/75 11/15/2019 9:00 AM CDT Pulse 76 11/15/2019 9:00 AM CDT Temperature 36.9 C (98.4 F) 11/15/2019 9:00 AM CDT Respiratory Rate 16 11/15/2019 9:00 AM CDT Oxygen Saturation - - Inhaled Oxygen Concentration - - Weight 135.7 kg (299 lb 4 oz) 11/15/2019 9:00 AM CDT Height 162.6 cm (5' 4") 11/15/2019 9:00 AM CDT Body Mass Index 51.37 11/15/2019 9:00 AM CDT documented in this encounter Patient Instructions Patient InstructionsTigist Wu, AGAPITO - 11/15/2019 9:00 AM CDT Patient Education Medroxyprogesterone injection [Contraceptive] Brand Names: Depo-Provera, Depo-subQ Provera 104 What is this medicine? MEDROXYPROGESTERONE (me DROX ee proe MITCHEL te elizabeth) contraceptive injections prevent . They provide effective control for 3 months. Depo-subQ Provera 104 is also used for treating pain related to endometriosis. How should I use this medicine? Depo-Provera Contraceptive injection is given into a muscle. Depo-subQ Provera 104 injection is given under the skin. These injections are given by a health home care physical therapist. You must not be before getting an injection. The injection is usually given during the first 5 days after the start of a menstrual period or 6 weeks after delivery of a baby. Talk to your leg breaker regarding the use of this medicine in children. Special care may be needed. These injections have been used in female children who have started having menstrual periods. What side effects may I notice from receiving this medicine? Side effects that you should report to your doctor or health home care physical therapist as soon as possible: allergic reactions like skin rash, itching or hives, swelling of the face, lips, or tongue breast tenderness or discharge breathing problems changes in vision depression feeling faint or lightheaded, falls fever pain in the abdomen, chest, groin, or leg problems with balance, talking, walking unusually weak or tired yellowing of the eyes or skin Side effects that usually do not require medical attention (report to your doctor or health home care physical therapist if they continue or are bothersome): acne fluid retention and swelling headache irregular periods, spotting, or absent periods temporary pain, itching, or skin reaction at site where injected weight gain What may interact with this medicine? Do not take this medicine with any of the following medications: bosentan This medicine may also interact with the following medications: aminoglutethimide antibiotics or medicines for infections, especially rifampin, rifabutin, rifapentine, and griseofulvin aprepitant barbiturate medicines such as phenobarbital or primidone bexarotene carbamazepine medicines for seizures like ethotoin, felbamate, oxcarbazepine, phenytoin, topiramate modafinil Pinckard's wort What if I miss a dose? Try not to miss a dose. You must get an injection once every 3 months to maintain control. If you cannot keep an appointment, call and reschedule it. If you wait longer than 13 weeks between Depo-Provera contraceptive injections or longer than 14 weeks between Depo-subQ Provera 104 injections, you could get . Use another method for control if you miss your appointment. You may also need a test before receiving another injection. Where should I keep my medicine? This does not apply. The injection will be given to you by a health home care physical therapist. What should I tell my health care provider before I take this medicine? They need to know if you have any of these conditions: frequently drink alcohol asthma blood vessel disease or a history of a blood clot in the lungs or legs bone disease such as osteoporosis breast cancer diabetes eating disorder (anorexia nervosa or bulimia) high blood pressure HIV infection or AIDS kidney disease liver disease mental depression migraine seizures (convulsions) stroke tobacco smoker vaginal bleeding an unusual or allergic reaction to medroxyprogesterone, other hormones, medicines, foods, dyes, or preservatives or trying to get breast-feeding What should I watch for while using this medicine? This drug does not protect you against HIV infection (AIDS) or other sexually transmitted diseases. Use of this product may cause you to lose calcium from your bones. Loss of calcium may cause weak bones (osteoporosis). Only use this product for more than 2 years if other forms of control are not right for you. The longer you use this product for control the more likely you will be at risk for weak bones. Ask your health home care physical therapist how you can keep strong bones. You may have a change in bleeding pattern or irregular periods. Many females stop having periods while taking this drug. If you have received your injections on time, your chance of being is very low. If you think you may be , see your health home care physical therapist as soon as possible. Tell your health home care physical therapist if you want to get within the next year. The effect of this medicine may last a long time after you get your last injection. NOTE:This sheet is a summary. It may not cover all possible information. If you have questions aboutthis medicine, talk to your doctor, pharmacist, or health care provider. Copyright 2018 [employer] documented in this encounter Progress Notes Tigist Wu RN - 11/15/2019 9:00 AM CDT28 year old female has been identified by and name. Verbal consent has been obtained by patientto have an injection of Depo Provera, as ordered by the provider. Date of last Depo Provera injection: initial Last WWE-needs after COVID Televisit for Control -11/01/2019 UPT -negative LMP- 11/05/2019 Last sexual intercourse without protection 11/01 or 11/03/2019 per patient Encounter Diagnosis: v25.49 The site was cleaned with an alcohol swab and given intramuscularly (IM) in the right deltoid. A band aid dressing was then applied to the injection site. The patient tolerated the procedure well , no rash, swelling or reaction noted. Advised patient on Calcium intake 500-1200 mg daily. ED warnings given. Patient to use back up BC method x 2 weeks. Patient to return to clinic in 12 weeks for next Depo. Patient verbalized understanding. TIGIST WU RN 11/15/2019 9:50 AM documented in this encounter Plan of Treatment Date Type Specialty Care Team Description 02/07/2020 Nurse Visit OB Satellites Visit, [facility] Nurse Health Maintenance Due Date Last Done Comments INFLUENZA VACCINE (Season Ended) 2020 Postponed from 03/13/2020 (Refused) PNEUMOCOCCAL 0-64 YEARS COMBINED 07/21/2020 Postponed from 1996 SERIES (1 of 1 - PPSV23) (Refuse d) PAP SMEAR 01/26/2022 01/26/2019 DTaP,Tdap,and Td Vaccines (2 - 07/21/2029 07/21/2019 Td) documented as of this encounter Procedures Procedure Name Priority Date/Time Associated Diagnosis Comme nts POCT TEST Routine 11/15/2019 9:06 AM Encounter for female Results for this CDT control procedure are in the results section. documented in this encounter Results POCT TEST (11/15/2019 9:06 AM CDT) Pathologist Sig nature POCT PREG Negative On board controls acceptable Yes with C Line POCT PREG LOT # POCT PREG TEST DATE Specimen Urine - URINE, CLEAN CATCH documented in this encounter Visit Diagnoses Diagnosis Encounter for female control - Jeana padgett Other specified contraceptive management documented in this encounter Administered Medications Medication Order MAR Action Action Date Dose Rate Site medroxyPROGESTERone Given 11/15/2019 10:28 150 mg Right (DEPO-PROVERA) injection 150 AM CDT Deltoid-IM mg 150 mg, Intramuscular, [id number], First dose on Thu11/15/19 at 1030, Until Discontinued, Routine documented in this encounter Insurance Payer Benefit Plan / Subscriber ID Effective Phone Address T [facility] xxxxxxxxx 2019-Prese [address] Medic aid HEALTH CHOICE - HEALTH CHOICE nt [id number] 1 MANAGED MEDICAID [place], [place] MEDICAID [id number] Guarantor Name Account Type Relation to Date of Phone Bill ing Patient Address Tyra Villalta Personal/Family Self 1990 [address] [place] [address] documented as of this encounter
--- OUTSIDE RECORDS SUMMARY | 2020-01-25 21:14 | XMS REPORT | Summary of Care ---
:1990 Author Organization [facility] Address [address] [place] [address] Care Team Providers Name Role Phone Jodie Godwin [facility] Primary Care Provider [phone] Reason for Visit Reason Comments CONTROL telehealth Encounter Details Date Type Department Care Team Description 11/01/[facility] other [place] Jodie Trinh, contraceptive [address] [facility] management (Primary [place], [place] [address]) [phone] [address] [phone] [place] [address] Allergies Active Allergy Reactions Severity [...] (AVS ) documentation will be available through [employer] for this encounter. A total of 6 minutes was spent on the Telephone due to patient unable to obtain video call option. NIECY Mckeon documented in this encounter Plan of Treatment Date Type Specialty Care Team Description 11/15/2019 Nurse Visit OB Satellites Visit, [facility] Nurse Name Type Priority Associated Diagnoses Order [...] / Subscriber ID Effective Phone Address T [facility] xxxxxxxxx 2019-Prese [address] Medic aid HEALTH CHOICE - HEALTH CHOICE nt [id number] 1 MANAGED MEDICAID [place], [place] [id number] Guarantor Name Account Type Relation to Date of Phone Bill ing Patient Address Tyra Villalta Personal/Family Self 1990 [address] [place] [address] documented as of this encounter
--- OUTSIDE RECORDS SUMMARY | 2020-01-25 21:14 | XMS REPORT | Summary of Care ---
:1990 Author Organization [facility] Address [address] [place] [address] Care Team Providers Name Role Phone Jodie Godwin [facility] Primary Care Provider Reason for Visit Reason Comments Appointment discuss bc Encounter Details Date Type Department Care Team Description 01/17/2020 Telephone [facility] Jodie Godwin [place] ointment (discuss Anahi [facility]) [address] [facility] [address] [place], [place] [phone] Allergies Active Allergy Reactions Severity Noted Date Comments Penicillin Nausea and/or Vomiting 01/26/2019 documented as of this encounter (statuses as of 01/17/2020) Medications Medication Sig Dispensed Refills Start Date [...] Facility Administered Medication medroxyPROGESTERone 150 mg IM [id number] 11/15/2019 Active (DEPO-PROVERA) injection 150 mgIndications: Encounter for female control documented as of this encounter (statuses as of 01/17/2020) Active Problems Problem Noted Date care and examination of lactating mother Morbid obesity with body mass index of 50 or higher Gestational hypertension, antepartum 09/20/2019 Tobacco use during 01/26/2019 documented as of this encounter (statuses as of 01/17/2020) Resolved Problems Problem Noted Date Resolved Date [...] as of this encounter (statuses as of 01/17/2020) Immunizations Name Administration Dates Next Due TDAP [...] Treatment Date Type Specialty Care Team Description 02/02/2020 [facility] [address], [place] [address] [phone] Health Maintenance Due Date Last Done Comments INFLUENZA VACCINE (#1) 2020 Postponed from 03/13/2020 (Refused) PNEUMOCOCCAL 0-64 YEARS COMBINED 07/21/2020 Postponed from 1996 SERIES (1 of 1 - PPSV23) (Refuse d) Depression Screening 11/14/2020 11/15/2019 PAP SMEAR 01/26/2022 01/26/2019 DTaP,Tdap,and Td Vaccines (2 - 07/21/2029 07/21/2019 Td) documented as of this encounter Results Not on filedocumented in this encounter Insurance Payer Benefit Plan / Subscriber ID Effective Phone Address T [facility] xxxxxxxxx 2019-Tari EDMOND Medic aid HEALTH CHOICE - HEALTH CHOICE nt [id number] 1 MANAGED MEDICAID [place], [place] [id number] documented as of this encounter
[2020-01-25] MEDS ORDERED: NA CHLORIDE 0.9% 1,000 ML ONE (21:59)
[2020-01-25 22:35] LABS: Absolute Lymphocytes (CBC) 2.9 K/uL (0.7-4.9); Basophils % 0.7 % (0-1.3); Hematocrit 43.8 % (36.0-45.0); Lymphocytes % 31.6 % (15.3-44.8); MPV 8.9 fL (7.6-11.3); RBC Red Blood Cell Count 5.43 M/uL (3.86-4.86)
[2020-01-25 22:40] LABS: Potassium 4.1 mmol/L (3.5-5.1)
--- NOTE | 2020-01-25 22:45 | EDPHYS ---
Physician Documentation [facility] Name: Tyra Villalta Age: 29 yrs Sex: Female : 1990 Arrival Date: 01/25/2020 Time: 21:12 Bed 13 Private MD: ED Physician Felton Salinas HPI: 01/24 21:22 This 29 yrs old Female presents to ER via Ambulatory with complaints of kb Cough, Headache. 21:22 The patient or guardian reports cough, that is intermittent, described as mild, flu kb symptoms, arthralgias, low-grade fever. Onset: The symptoms/episode began/occurred 7 day(s) ago. Severity of symptoms: At their worst the symptoms were moderate, in the emergency department the symptoms are unchanged. Modifying factors: The symptoms are alleviated by nothing, the symptoms are aggravated by nothing. Associated signs and symptoms: Pertinent positives: fever, rhinorrhea, sore throat, Pertinent negatives: chest pain, diarrhea, ear ache, nausea, vomiting. The patient has not experienced similar symptoms in the past. The patient has not recently seen a physician. 21:23 Pt reports weakness, headache, rhinorrhea, cough, congestion, sore throat for 7 days. kb is positive for COVID. 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 - Social history:: Smoking status: Patient reports the use of cigarette tobacco products, smokes one pack cigarettes per day. ROS: 21:21 Neck: Negative for injury, pain, and swelling, Cardiovascular: Negative for chest pain, kb palpitations, and edema, Abdomen/GI: Negative for abdominal pain, nausea, vomiting, diarrhea, and constipation, Back: Negative for injury and pain, MS/Extremity: Negative for injury and deformity, Skin: Negative for injury, rash, and discoloration. 21:21 Constitutional: Positive for body aches, fatigue, malaise, poor PO intake. 21:21 ENT: Positive for rhinorrhea, sore throat. 21:21 Respiratory: Positive for cough, Negative for dyspnea on exertion, hemoptysis, orthopnea, pleurisy, shortness of breath, sputum production, wheezing. 21:21 Neuro: Positive for headache, Negative for altered mental status, dizziness, gait disturbance, hearing loss, loss of consciousness, numbness, seizure activity, speech changes, syncope, near syncope, tingling, tinnitus, tremor, visual changes, weakness. Exam: 21:21 Constitutional: This is a well developed, well nourished patient who is awake, alert, kb and in no acute distress. Head/Face: Normocephalic, atraumatic. Chest/axilla: Normal chest wall appearance and motion. Nontender with no deformity. No lesions are appreciated. Cardiovascular: Regular rate and rhythm with a normal S1 and S2. No gallops, murmurs, or rubs. Normal PMI, no JVD. No pulse deficits. Respiratory: Lungs have equal breath sounds bilaterally, clear to auscultation and percussion. No rales, rhonchi or wheezes noted. No increased work of breathing, no retractions or nasal flaring. Abdomen/GI: Soft, non-tender, with normal bowel sounds. No distension or tympany. No guarding or rebound. No evidence of tenderness throughout. Skin: Warm, dry with normal turgor. Normal color with no rashes, no lesions, and no evidence of cellulitis. MS/ Extremity: Pulses equal, no cyanosis. Neurovascular intact. Full, normal range of motion. Neuro: Awake and alert, GCS 15, oriented to person, place, time, and situation. Cranial nerves II-XII grossly intact. Motor strength 5/5 in all extremities. Sensory grossly intact. Cerebellar exam normal. Normal gait. Vital Signs: 21:17 BP 136 / 81; Pulse 93; Resp 19 S; Temp 97(TE); Pulse Ox 100% on R/A; Weight 131.09 kg ca1 (R); Height 5 ft. 4 in. (162.56 cm) (R); 22:45 BP 113 / 68; Pulse 80; Resp 18; Pulse Ox 98% ; ea 21:17 Body Mass Index 49.61 (131.09 kg, 162.56 cm) ca1 MDM: 21:19 Patient medically screened. kb 21:21 Data reviewed: vital signs, nurses notes. Data interpreted: Pulse oximetry: on room air kb is 100 %. Interpretation: normal. 22:44 Counseling: I had a detailed discussion with the patient and/or guardian regarding: the kb historical points, exam findings, and any diagnostic results supporting the discharge/admit diagnosis, lab results, radiology results, the need for outpatient follow up, a family practitioner, to return to the emergency department if symptoms worsen or persist or if there are any questions or concerns that arise at home. 01/24 21:21 Order name: CBC with Diff; Complete Time: 22:44 kb 01/24 21: Order name: Basic Metabolic Panel; Complete Time: 22:44 kb 01/24 21: Order name: IV Start; Complete Time: 22:21 kb 01/24 21: Order name: COVID-19 kb 01/24 21: Order name: Chest Single View XRAY kb Administered Medications: 22:21 Drug: NS 0.9% 1000 ml Route: IV; Rate: 1000 ml; Site: right antecubital; ea 23:00 Follow up: Response: No adverse reaction; IV Status: Completed infusion; IV Intake: ea 1000ml Disposition: 01/25 08:46 Co-signature as Attending Physician, Felton Salinas MD I agree with the assessment and [facility] plan of care. Disposition: 01/25/20 22:44 Discharged to Home. Impression: Acute upper respiratory infection, unspecified. - Condition is Stable. - Discharge Instructions: Viral Respiratory Infection, [id number], COVID-19. - Prescriptions for Albuterol Sulfate 90 mcg/actuation - inhale 1-2 puff by INHALATION route every 4-6 hours; 1 Inhaler. - Medication Reconciliation Form, Thank You Letter, Antibiotic Education, Prescription Opioid Use form. - Follow up: Emergency Department; When: As needed; Reason: Worsening of condition. Follow up: Private Physician; When: 2 - 3 days; Reason: Recheck today's complaints, Continuance of care, Re-evaluation by your physician. Signatures: Dispatcher [employer] Shavonne Hazel, Felton King MD MD cha Antunez, Elena, RN Jessica Talley ea RN AGAPITO ca1 Corrections: (The following items were deleted from the chart) 01/24 23:00 22:44 01/25/2020 22:44 Discharged to Home. Impression: Acute upper respiratory ea infection, unspecified. Condition is Stable. Forms are Medication Reconciliation Form, Thank You Letter, Antibiotic Education, Prescription Opioid Use. Follow up: Emergency Department; When: As needed; Reason: Worsening of condition. Follow up: Private Physician; When: 2 - 3 days; Reason: Recheck today's complaints, Continuance of care, Re-evaluation by your physician. kb
--- NOTE | 2020-01-25 22:45 | ER ---
Nurse's Notes [facility] Name: Tyra Villalta Age: 29 yrs Sex: Female : 1990 Arrival Date: 01/25/2020 Time: 21:12 Bed 13 Private MD: Diagnosis: Acute upper respiratory infection, unspecified Presentation: 01/24 21:17 Chief complaint: Patient states: Cough, headache, sore throat, body aches since Thursday. ca1 tested positive for Covid-19. Coronavirus screen: Surgical mask placed on patient. Patient moved to private room, placed in contact and droplet isolation with eye protection until further assessment. Patient reports a cough. Patient denies shortness of breath or difficulty breathing. Patient reports a measured and/or subjective temperature greater than 100.4F. Patient denies travel on a cruise ship or to a country the [facility] currently lists as an affected area. Patient reports contact with known and/or suspected case of COVID-19. Ebola Screen: Patient negative for fever greater than or equal to 101.5 degrees Fahrenheit, and additional compatible Ebola Virus Disease symptoms Patient denies exposure to infectious person. Patient denies travel to an Ebola-affected area in the 21 days before illness onset. No symptoms or risks identified at this time. Initial Sepsis Screen: Does the patient meet any 2 criteria? No. Patient's initial sepsis screen is negative. Does the patient have a suspected source of infection? No. Patient's initial sepsis screen is negative. Risk Assessment: Do you want to hurt yourself or someone else? Patient reports no desire to harm self or others. Onset of symptoms was January 25, 2020. 21:17 Method Of Arrival: Ambulatory ca1 21:17 Acuity: BREANNA 3 ca1 Triage Assessment: 22:22 Headache History: Denies prior headaches. General: Appears in no apparent distress. ea General: Behavior is calm, cooperative, appropriate for age. 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 - Social history:: Smoking status: Patient reports the use of cigarette tobacco products, smokes one pack cigarettes per day. Screenin:21 Abuse screen: Denies threats or abuse. Nutritional screening: No deficits noted. ea Tuberculosis screening: No symptoms or risk factors identified. Fall Risk IV access (20 points). Assessment: 22:22 General: Appears in no apparent distress. Behavior is appropriate for age. Pain: ea Complains of pain in headache. Neuro: Level of Consciousness is awake, alert, obeys commands, Oriented to person, place, time. Respiratory: Airway is patent Respiratory effort is even, unlabored, Respiratory pattern is regular, symmetrical. Derm: Skin is pink, warm \T\ dry. 22:57 Reassessment: Patient and/or family updated on plan of care and expected duration. Pain ea level reassessed. Patient is alert, oriented x 3, equal unlabored respirations, skin warm/dry/pink. Discharge instruction given to patient, verbalized the understanding of instruction. Pt left ED ambulatory tolerating well. Vital Signs: 21:17 BP 136 / 81; Pulse 93; Resp 19 S; Temp 97(TE); Pulse Ox 100% on R/A; Weight 131.09 kg ca1 (R); Height 5 ft. 4 in. (162.56 cm) (R); 22:45 BP 113 / 68; Pulse 80; Resp 18; Pulse Ox 98% ; ea 21:17 Body Mass Index 49.61 (131.09 kg, 162.56 cm) ca1 ED Course: 21:12 Patient arrived in ED. ds1 21:16 Shavonne Power [facility]-C [facility] kb 21:16 Felton Salinas MD is Attending Physician. kb 21:19 Triage completed. ca1 21:19 Arm band placed on right wrist. ca1 21:29 Irene Potter, AGAPITO is Primary Nurse. ea 21:34 Chest Single View XRAY In Process Unspecified. EDMS 22:21 Patient has correct armband on for positive identification. Bed in low position. Call ea light in reach. Side rails up X 1. 22:23 Inserted saline lock: 20 gauge in right antecubital area, using aseptic technique. ea 22:58 No provider procedures requiring assistance completed. IV discontinued, intact, ea bleeding controlled, No redness/swelling at site. Pressure dressing applied. Administered Medications: 22:21 Drug: NS 0.9% 1000 ml Route: IV; Rate: 1000 ml; Site: right antecubital; ea 23:00 Follow up: Response: No adverse reaction; IV Status: Completed infusion; IV Intake: ea 1000ml Intake: 23:00 IV: 1000ml; Total: 1000ml. ea Outcome: 22:44 Discharge ordered by . esa 22:59 Discharged to home ambulatory, with significant other. ea 22:59 Condition: stable 22:59 Discharge instructions given to patient, Instructed on discharge instructions, follow up and referral plans. medication usage, Demonstrated understanding of instructions, follow-up care, medications, Prescriptions given X 1. 23:00 Patient left the ED. ea Addendum: 01/30/2020 14:11 Addendum: COVID-19 Result: Negative result given to RN to notify pt. Contacted by: Elo Polanco RN. Notified pt of negative COVID 19 swab results. Pt advised that even with a negative test result they should remain in isolation until symptom free for 3 days without medication. Pt also advised to return to the ED for worsening symptoms. Signatures: Dispatcher [employer] EDMS Shavonne Power, SOLDER MAKING SUPERVISOR-C SOLDER MAKING SUPERVISOR-Lucie Mukherjee, Krissy Abebe RN ds1 Irene Potter RN RN ea Acob, Cheryl, RN RN ca1
[2020-01-25 23:24] VITALS: TEMP 97
[2020-01-25 23:25] VITALS: BP 113/68; O2SAT 98
--- NOTE | 2020-01-26 08:19 | RAD REPORT ---
EXAM DESCRIPTION: RAD - Chest Single View - 01/25/2020 9:34 pm CLINICAL HISTORY: COUGH, headache, sore throat, close contact with positive COVID patient COMPARISON: Portable February 2019 TECHNIQUE: AP portable chest image was obtained 01/25/2020 9:34 pm . FINDINGS: Lungs are clear. Heart and vasculature are normal. No measurable pleural effusion and no p neumothorax. No acute bony abnormality seen. No acute aortic findings suspected. IMPRESSION: No acute cardiopulmonary process.
== END 2020-01-25 23:00 | disposition home or self-care (01) ==
LOC: ER 21:12
DX: J06.9 Acute upper respiratory infection, unspecified (principal); Z20.828 Contact with and (suspected) exposure to other viral communicable diseases; I10 Essential (primary) hypertension; F17.210 Nicotine dependence, cigarettes, uncomplicated; Z88.0 Allergy status to penicillin
CPT/HCPCS: 85025; 80048; 36415; 71045; 96360; 99284; U0001; J7030

== ENCOUNTER 2020-05-26 09:54 | Emergency (ER) | payer OTHER ==
--- OUTSIDE RECORDS SUMMARY | 2020-05-26 09:56 | XMS REPORT | Continuity of Care Document ---
:1990 Author Organization [facility] t Address [address] [place] [address] Care Team Providers Name Role Phone Gayathri Moy Attending Clinician Problems This patient has no known problems. Allergies, Adverse Reactions, Alerts This patient has no known allergies or adverse reactions. Medications This patient has no known medications. Procedures This patient has no known procedures. Encounters Start End Encounter Admission Attending Care Care Encounter Source Date/Time Date/Time Type Type Clinicians Facility Department ID 2020-04-06 2020-04-06 Office [facility] [id number] 08:07:21 08:42:27 Visit Jodie Trinh LIQUIFIED NATURAL GAS SPECIALIST [id number] [facility] [id number] MATERNAL [id number] & CHILD [address] [place] [address] Results This patient has no known results.
--- OUTSIDE RECORDS SUMMARY | 2020-05-26 09:57 | XMS REPORT | Summary of Care ---
:1990 Author Organization [facility] Address [address] [place] [address] Care Team Providers Name Role Phone Jodie Godwin QUETA Primary Care Provider [phone] Reason for Visit Reason Comments Follow-up Encounter Details Date Type Department Care Team Description 04/06/2020 Office Visit [facility]- Jodie Godiwn Ot er general counseling and advice for contraceptive management (Primary Dx); NIECY Stafford Other subacute sinusitis [address] [place], [place] [phone] Allergies Active Allergy Reactions Severity Noted Date Comments Penicillin Nausea and/or Vomiting 01/26/2019 documented as of this encounter (statuses as of 04/06/2020) Medications Medication Sig Dispensed Refills Start Date End Date Status vitamin w/FA Take 1 tablet by 100 tablet 3 09/22/2019 Active tabletIndications: mouth daily. May S/P section substitute for what is in stock and covered by patient plan docusate calcium 240 Take 1 capsule by 60 capsule 1 09/22/2019 Active mg mouth once daily capsuleIndications: as needed for S/P section Constipation. May substitute for what is in stock and covered by patient plan ferrous sulfate 325 Take 1 tablet by 60 tablet 2 09/22/2019 Active mg (65 mg iron) mouth 2 (two) tabletIndications: times daily. May S/P section substitute for what is in stock and covered by patient plan ibuprofen 600 mg Take 1 tablet by 60 tablet 1 09/22/2019 Active tabletIndications: mouth every 6 S/P section (six) hours as needed (Pain). Take with food or milk. azithromycin Take 1 tablet by 1 Package 0 04/06/2020 Active (ZITHROMAX Z-THA) 250 mouth daily. Take mg tabletIndications: 500 mg day 1, then Other subacute 250 mg days 2 to sinusitis 5. Hospital, Clinic, or Other Ordered Dose Route Frequency Start Date End Date Status Facility Administered Medication medroxyPROGESTERone 150 mg IM [id number] 11/15/2019 Active (DEPO-PROVERA) injection 150 mgIndications: Encounter for female control documented as of this encounter (statuses as of 04/06/2020) Active Problems Problem Noted Date Sinus infection 04/06/2020 Breakthrough bleeding on Nexplanon 02/23/[address] 02/09/2020 Well woman exam 02/02/2020 Other general counseling and advice for contraceptive management 02/02/2020 Morbid obesity with BMI of 45.0-49.9, adult 09/20/2019 Gestational hypertension, antepartum 09/20/2019 Tobacco use 01/26/2019 documented as of this encounter (statuses as of 04/06/2020) Resolved Problems Problem Noted Date Resolved Date care and examination of lactating mother 10/12/19 20 02/02/2020 37 weeks gestation of 09/20/2019 10/12/19 20 [...] as of this encounter (statuses as of 04/06/2020) Immunizations Name Administration Dates Next Due TDAP (ADACEL) VACCINE 07/21/2019 documented as of this encounter Social History Tobacco Use Types Packs/Day Years Used Date Current Every Day Smoker Cigarettes 1 Sta rted: 01/26/2007 Smokeless Tobacco: Never Used Comments: 1 pack a day Alcohol Use Drinks/Week oz/Week Comments Not Currently [...] Assigned at Date Recorded Not on file COVID-19 Exposure Response Date Recorded In the last month, have you been in contact with No / Unsure 04/06/2020 8:19 AM CDT someone who was confirmed or suspected to have Coronavirus / COVID-19? documented as of this encounter Last Filed Vital Signs Vital Sign Reading Time Taken Comments Blood Pressure 115/75 04/06/2020 8:20 AM CDT Pulse 71 04/06/2020 8:20 AM CDT Temperature 36.8 C (98.2 F) 04/06/2020 8:20 AM CDT Respiratory Rate 16 04/06/2020 8:20 AM CDT Oxygen Saturation - - Inhaled Oxygen Concentration - - Weight 127.3 kg (280 lb 11.2 oz) 04/06/2020 8:20 AM CDT Height 162.6 cm (5' 4") 04/06/2020 8:20 AM CDT Body Mass Index 48.18 04/06/2020 8:20 AM CDT documented in this encounter Progress Notes Jodie Godwin, WHCNP - 04/06/2020 8:15 AM CDT Chief complaint: Chief Complaint Patient presents with Follow-up HPI the patient is here today for follow up on her nexplanon. She reports she is pleased with her device and reports since taking the supplemental estrogen her cycles have been much better. She reportsshe is still bleeding, but reports that it is only spotting after she wipes, she does report some blood noted on her underwear but only spotting. She also reports for the past 3 days she has been experiencing symptoms of a sinus infections. She reports she had one in the past. Symptoms include nasal congestion, ear pain, and dry cough. COVID-19 SCREEN: ? Recent history of travel to a high-risk area: No ? Recent sick contacts before or during admission: No ? Contact with a proven COVID-19 case: No ? Symptoms of COVID-19, which include fever, dry cough, fatigue, difficulty breathing: No This patient is considered low risk for COVID-19 infection. Histories OB History Para Term AB Living 3 3 3 2 SAB TAB Ectopic Multiple Live Births 2 # Outcome Date GA Lbr Levon/2nd Weight Sex Delivery Anes PTL Lv 3 Term 09/20/19 37w5d 2 Term 11/05/13 38w0d 6 lb 14 oz (3.118 kg) F SEC PERRY 1 Term 07/09/10 40w0d 6 lb 7 oz (2.92 kg) M SEC PERRY Past Medical History: Diagnosis Date Breakthrough bleeding on Nexplanon 02/23/2020 Chest pain 07/11/2019 Gestational hypertension, antepartum 09/20/2019 Pap smear abnormality of cervix 2009 STD (sexually transmitted disease) 2009 Genital warts Family History Problem Relation Age of Onset Diabetes Mother Diabetes Father Asthma Sister Breast Cancer Maternal Grandmother Diabetes Maternal Grandmother Family Status Relation Name Status Mo Alive Fa Alive Sis Alive MGMo Alive Past Surgical History: Procedure Laterality Date SECTION N/A 09/20/2019 Surgeon: Arleen Pineda MD; Location: [facility] and Delivery [facility] [place] Social History Socioeconomic History Marital status: Single Spouse name: Not on file Number of children: Not on file Years of education: Not on file Highest education level: Not on file Occupational History Not on file Social Needs Financial resource strain: Not on file Food insecurity Worry: Not on file Inability: Not on file Transportation needs Medical: Not on file Non-medical: Not on file Tobacco Use Smoking status: Current Every Day Smoker Packs/day: 1.00 Types: Cigarettes Start date: 01/26/2007 Smokeless tobacco: Never Used Tobacco comment: 1 pack a day Substance and Sexual Activity Alcohol use: Not Currently Frequency: Never Drug use: Not Currently Sexual activity: Yes Partners: Male control/protection: Injection Comment: Last intercourse: 02/01/2020 Lifestyle Physical activity Days per week: Not on file Minutes per session: Not on file Stress: Not on file Relationships Social connections Talks on phone: Not on file Gets together: Not on file Attends sikh service: Not on file Active member of club or organization: Not on file Attends meetings of clubs or organizations: Not on file Relationship status: Not on file Intimate partner violence Fear of current or ex partner: Not on file Emotionally abused: Not on file Physically abused: Not on file Forced sexual activity: Not on file Other Topics Concern Not on file Social History Narrative Patient lives with spouse and children. Patient feels safe at home. Patient has 1 cat. Social History Substance and Sexual Activity Sexual Activity Yes Partners: Male control/protection: Injection Comment: Last intercourse: 02/01/2020 Labs No new labs Radiology No new radiology. Allergies Tyra is allergic to penicillin. Medications Tyra has a current medication list which includes the following prescription(s): docusate calcium, ferrous sulfate, ibuprofen, and vitamin w/fa, and the following Facility-Administered Medications: medroxyprogesterone. Review of Systems Constitutional: Negative. HENT: Positive for congestion. Eyes: Negative. Respiratory: Positive for cough. Breasts: Negative. Cardiovascular: Negative. Gastrointestinal: Negative. Genitourinary: Negative. Musculoskeletal: Negative. Skin: Negative. Neurological: Negative. Psychiatric/Behavioral: Negative. Endocrine: Endocrine negative BP 115/75 (BP Location: Right arm, Patient Position: Sitting, BP CUFF SIZE: Adult Medium) | Pulse 71 | Temp 36.8 C (98.2 F) (Oral) | Resp 16 | Ht 5' 4" (1.626 m) | Wt 280 lb 11.2 oz (127.3 kg) | BMI 48.18 kg/m Pregravid BMI: Could not be calculated Physical Exam Vitals reviewed. Constitutional: She is oriented to person, place, and time. She appears well- developed and well-nourished. Her body habitus is normal. HENT: Head: Normocephalic. Nose: Nose normal. Right sinus exhibits no maxillary sinus tenderness and no frontal sinus tenderness. Left sinus exhibits no maxillary sinus tenderness and no frontal sinus tenderness. Cardiovascular: Regular rate and rhythm. No peripheral edema present. Pulmonary/Chest: Normal inspiratory effort. Neuro/Psychiatric: She has a normal mood and affect. She is oriented to person, place, and time. Skin: Skin normal. No lesion, no rash and no ulceration present. Assessment/Plan Return to clinic in 10 months for WWE or sooner as needed Other general counseling and advice for contraceptive management (primary encounter diagnosis) Comment: nexplanon Plan: as needed mgmt Other subacute sinusitis Comment: reports symptoms Plan: azithromycin (ZITHROMAX Z-THA) 250 mg tablet This visit did not involve counseling and coordination that comprised more than 50% of the visit time. NIECY Mckeon 04/06/2020 8:40 AM documented in this encounter Plan of Treatment Health Maintenance Due Date Last Done Comments INFLUENZA VACCINE (#1) 2020 PNEUMOCOCCAL 0-64 YEARS COMBINED 07/21/2020 Postponed from 1996 SERIES (1 of 1 - PPSV23) (Refuse d) Depression Screening 11/14/2020 11/15/2019 PAP SMEAR 01/26/2022 01/26/2019 DTaP,Tdap,and Td Vaccines (2 - 07/21/2029 07/21/2019 Td) documented as of this encounter Results Not on filedocumented in this encounter Visit Diagnoses Diagnosis Other general counseling and advice for contraceptive management - Primary Other subacute sinusitis documented in this encounter Insurance Payer Benefit Plan / Subscriber ID Effective Phone Address T [facility] [id number] 2019-Tari [place] Medic aid HEALTH CHOICE - HEALTH CHO[place] [id number] 1 MANAGED MEDICAID [place], [place] [id number] Guarantor Name Account Type Relation to Date of Phone Bill ing Patient Address Tyra Villalta Personal/Family Self 1990 [address] [facility] [address] [place] [address] documented as of this encounter
--- OUTSIDE RECORDS SUMMARY | 2020-05-26 09:57 | XMS REPORT | Summary of Care ---
:1990 Author Organization [facility] Address [address] [place] [address] Care Team Providers Name Role Phone Jodie Godwin QUETA Primary Care Provider Reason for Visit Reason Comments Follow-up Encounter Details Date Type Department Care Team Description 04/06/2020 Office Visit [facility]- Jodie Godwin Ot er general counseling and advice for contraceptive management (Primary Dx); NIECY Stafford Other subacute sinusitis [address] [facility] [address] [place], [place] [phone] Allergies Active Allergy Reactions Severity Noted Date [...] Facility Administered Medication medroxyPROGESTERone 150 mg IM [id number] 11/15/2019 Active (DEPO-PROVERA) injection 150 mgIndications: Encounter [...] Arleen Pineda MD; Location: Labor and Delivery [facility] [place] Social History Socioeconomic History Marital status: Single [...] file Gets together: Not on file Attends gnosticist service: Not on file Active member of [...] Last Done Comments PNEUMOCOCCAL 0-64 YEARS COMBINED 07/21/2020 Postponed from 1996 SERIES (1 of 1 - PPSV23) (Refuse d) Depression Screening 11/14/2020 11/15/2019 INFLUENZA VACCINE (#1) 2021 Postponed from 03/13/2020 (Refused) PAP SMEAR 01/26/2022 01/26/2019 DTaP,Tdap,and Td Vaccines (2 - 07/21/2029 07/21/2019 Td) documented as of this encounter Results Not on filedocumented in this encounter Visit Diagnoses Diagnosis Other general counseling and advice for contraceptive management - Primary Other subacute sinusitis documented in this encounter Insurance Payer Benefit Plan / Subscriber ID Effective Phone Address [facility] [id number] 2019-Tari EDMOND Medic aid HEALTH CHOICE - HEALTH CHOICE nt [id number] 1 MANAGED MEDICAID [place], [place] [id number] Guarantor Name Account Type Relation to Date of Phone Bill ing Patient Address Tyra Villalta Personal/Family Self 1990 [phone] [address] (Home) [address] [place] [id number] documented as of this encounter
--- OUTSIDE RECORDS SUMMARY | 2020-05-26 09:57 | XMS REPORT | Summary of Care ---
:1990 Author Organization [facility] Address [address] [place] [address] Care Team Providers Name Role Phone Jodie Godwin QUETA Primary Care Provider [phone] Reason for Visit Reason Comments Follow-up Encounter Details Date Type Department Care Team Description 04/06/2020 Office Visit [facility]- Jodie Godwin Ot er general counseling and advice for contraceptive management (Primary Dx); NIECY Stafford Other subacute sinusitis [address] [facility] [address] [place], [place] [phone] Allergies Active Allergy Reactions Severity Noted Date [...] Facility Administered Medication medroxyPROGESTERone 150 mg IM [id number] 11/15/2019 Active (DEPO-PROVERA) injection 150 mgIndications: Encounter [...] Arleen Pineda MD; Location: Labor and Delivery [facility] [place] Social History Socioeconomic History Marital status: Single [...] file Gets together: Not on file Attends taoism service: Not on file Active member of [...] / Subscriber ID Effective Phone Address T [facility] [id number] 2019-Tari EDMOND Medic aid HEALTH CHOICE - HEALTH CHOICE nt [id number] 1 MANAGED MEDICAID [place] [id number] Guarantor Name Account Type Relation to Date of Phone Bill ing Patient Address Tyra Villalta Personal/Family Self 1990 [address] [facility] (Home) [address] [place] [address] documented as of this encounter
--- NOTE | 2020-05-26 11:48 | ER ---
Nurse's Notes [facility] Name: Tyra Villalta Age: 29 yrs Sex: Female : 1990 Arrival Date: 05/26/2020 Time: 09:56 Bed 8 Private MD: Diagnosis: Acute upper respiratory infection, unspecified Presentation: 05/26 10:03 Chief complaint: Patient states: sore throat, cough, runny nose, nasal congestion, left aa5 ear pain, chills, headache, diarrhea, and generalized weakness x 3 days ago. 10:03 Coronavirus screen: congestion, cough unrelated to allergies, diarrhea, fatigue, aa5 headache, Client presents with at least one sign or symptom that may indicate coronavirus-19. Standard/surgical mask placed on the client. Provider contacted for isolation considerations. Ebola Screen: Patient negative for fever greater than or equal to 101.5 degrees Fahrenheit, and additional compatible Ebola Virus Disease symptoms. Initial Sepsis Screen: Does the patient meet any 2 criteria? No. Patient's initial sepsis screen is negative. Does the patient have a suspected source of infection? No. Patient's initial sepsis screen is negative. Risk Assessment: Do you want to hurt yourself or someone else? Patient reports no desire to harm self or others. Onset of symptoms was May 2020. 10:03 Method Of Arrival: Ambulatory aa5 10:03 Acuity: BREANNA 4 aa5 Triage Assessment: 10:05 General: Appears distressed, uncomfortable, obese, Behavior is calm, cooperative, bp appropriate for age. Pain: Complains of pain in neck. EENT: Reports nasal congestion nasal discharge that is watery. Neuro: No deficits noted. Cardiovascular: No deficits noted. Respiratory: Reports cough that is. GI: No signs and/or symptoms were reported involving the gastrointestinal system. : No signs and/or symptoms were reported regarding the genitourinary system. Derm: No deficits noted. Musculoskeletal: No deficits noted. Historical: - Allergies: 10:03 PENICILLINS (Upset stomach); aa5 - PMHx: 10:03 Hypertension; aa5 - PSHx: 10:03 ; aa5 - Immunization history:: Adult Immunizations unknown. - Social history:: Smoking status: Patient reports the use of cigarette tobacco products. Screenin:00 Abuse screen: Denies threats or abuse. Denies injuries from another. Nutritional bp screening: No deficits noted. Tuberculosis screening: No symptoms or risk factors identified. Fall Risk None identified. Assessment: 10:05 General: SEE TRIAGE NOTE. Pain: Complains of pain in neck. Respiratory: Reports cough bp that is Airway is patent Respiratory effort is even, unlabored, Breath sounds are clear bilaterally. EENT: Throat is reddened Reports nasal congestion. 11:05 Reassessment: ALL CURRENT ORDERS COMPLETED. bp 12:06 Reassessment: PT D/C HOME AMBULATORY, DX WITH VIRAL URI. bp Vital Signs: 10:03 BP 125 / 72; Pulse 90; Resp 18 S; Temp 98.5(O); Pulse Ox 99% on R/A; aa5 11:00 BP 132 / 88; Pulse 86; Resp 16; Pulse Ox 100% ; bp 12:00 BP 121 / 79; Pulse 82; Resp 16; Temp 98.5; Pulse Ox 98% ; bp ED Course: 09:56 Patient arrived in ED. ag5 10:03 Arm band placed on Patient placed in an exam room, on a stretcher. aa5 10:04 Danie Aguilera, WILLIAM is PHCP. pm1 10:04 Ron Blackman MD is Attending Physician. pm1 10:07 Juan Zepeda, AGAPITO is Primary Nurse. bp 10:11 Triage completed. aa5 11:00 Patient has correct armband on for positive identification. Bed in low position. Call bp light in reach. Side rails up X2. 12:06 No provider procedures requiring assistance completed. Patient did not have IV access bp during this emergency room visit. Administered Medications: No medications were administered Outcome: 11:47 Discharge ordered by . pm1 12:06 Discharged to home ambulatory. bp 12:06 Condition: stable 12:06 Discharge instructions given to patient, Instructed on discharge instructions, follow up and referral plans. medication usage, Demonstrated understanding of instructions, follow-up care, medications, Prescriptions given X 1. 12:08 Patient left the ED. bp Addendum: 05/30/2020 12:44 Addendum: COVID-19 Result: Negative result given to RN to notify pt. Notified pt of d m5 negative COVID 19 swab results. Pt advised that even with a negative test result they should remain in isolation until symptom free for 3 days without medication. Pt also advised to return to the ED for worsening symptoms. Signatures: Lucie Polanco RN RN dm5 Breanne Freed RN RN aa5 Danie Aguilera, PEDIATRIC PHYSICAL THERAPY ASSISTANT PEDIATRIC PHYSICAL THERAPY ASSISTANT pm1 Juan Zepeda RN RN bp Trent, Shaylee ag5
--- NOTE | 2020-05-26 11:48 | EDPHYS ---
Physician Documentation [facility] Name: Tyra Villalta Age: 29 yrs Sex: Female : 1990 Arrival Date: 05/26/2020 Time: 09:56 Bed 8 Private MD: ED Physician Ron Blackman HPI: 05/26 10:16 This 29 yrs old Female presents to ER via Ambulatory with complaints of Sore pm1 Throat, Cough, Runny Nose. 10:16 The patient presents with sore throat. The patient describes throat pain as raw, pm1 scratchy. Onset: The symptoms/episode began/occurred 3 day(s) ago. Severity of symptoms: in the emergency department the symptoms are unchanged. Modifying factors: The symptoms are alleviated by nothing, The patient has had contact with sick daughter, diagnosed with URI. Associated signs and symptoms: Pertinent positives: chills, cough, rhinorrhea, nasal congestion, left ear pain, headache, occasional diarrhea, Pertinent negatives chest pain, shortness of breath, vomiting. . 10:16 Patient reports change in the taste of cigarettes. pm1 Historical: - Allergies: 10:03 PENICILLINS (Upset stomach); aa5 - PMHx: 10:03 Hypertension; aa5 - PSHx: 10:03 ; aa5 - Immunization history:: Adult Immunizations unknown. - Social history:: Smoking status: Patient reports the use of cigarette tobacco products. ROS: 10:16 Cardiovascular: Negative for chest pain, palpitations, and edema. pm1 10:16 Back: Negative for injury and pain, : Negative for injury, bleeding, discharge, and swelling, MS/Extremity: Negative for injury and deformity, Skin: Negative for injury, rash, and discoloration. 10:16 Constitutional: Positive for chills, Negative for poor PO intake. 10:16 ENT: Positive for ear pain, rhinorrhea, sore throat, Negative for drainage from ear(s), difficulty swallowing, difficulty handling secretions. 10:16 Respiratory: Positive for cough, Negative for shortness of breath, sputum production, wheezing. 10:16 Abdomen/GI: Positive for diarrhea, Negative for abdominal pain, nausea and vomiting. 10:16 Neuro: Positive for headache, Negative for numbness, tingling. Exam: 10:16 Constitutional: This is a well developed, well nourished patient who is awake, alert, pm1 and in no acute distress. Head/Face: Normocephalic, atraumatic. Eyes: Pupils equal round and reactive to light, extra-ocular motions intact. Lids and lashes normal. Conjunctiva and sclera are non-icteric and not injected. Cornea within normal limits. Periorbital areas with no swelling, redness, or edema. 10:16 Neck: Trachea midline, no thyromegaly or masses palpated, and no cervical lymphadenopathy. Supple, full range of motion without nuchal rigidity, or vertebral point tenderness. No Meningismus. 10:16 Back: No spinal tenderness. No costovertebral tenderness. Full range of motion. Skin: Warm, dry with normal turgor. Normal color with no rashes, no lesions, and no evidence of cellulitis. MS/ Extremity: Pulses equal, no cyanosis. Neurovascular intact. Full, normal range of motion. 10:16 ENT: External ear(s): are unremarkable, Ear canal(s): are normal, TM's: are normal, Nose: is normal, Posterior pharynx: is normal, airway is patent, no acute changes, peritonsillar mass, is not appreciated, pooling of secretions, is not appreciated. 10:16 Cardiovascular: Exam negative for acute changes, Rate: normal, Rhythm: regular, Pulses: no pulse deficits are appreciated. 10:16 Respiratory: Exam negative for acute changes, respiratory distress, shortness of breath. 10:16 Abdomen/GI: Exam negative for acute changes, Palpation: abdomen is soft and non-tender, in all quadrants. 10:16 Neuro: Exam negative for acute changes, Orientation: is normal, Mentation: is normal, Motor: is normal. Vital Signs: 10:03 BP 125 / 72; Pulse 90; Resp 18 S; Temp 98.5(O); Pulse Ox 99% on R/A; aa5 11:00 BP 132 / 88; Pulse 86; Resp 16; Pulse Ox 100% ; bp 12:00 BP 121 / 79; Pulse 82; Resp 16; Temp 98.5; Pulse Ox 98% ; bp MDM: 10:06 Patient medically screened. pm1 11:42 Data reviewed: vital signs. Counseling: I had a detailed discussion with the patient pm1 and/or guardian regarding: the historical points, exam findings, and any diagnostic results supporting the discharge/admit diagnosis, lab results, the need for outpatient follow up, to return to the emergency department if symptoms worsen or persist or if there are any questions or concerns that arise at home, smoking cessation. pending covid19 test. 05/26 10:11 Order name: COVID-19 pm1 05/26 10:11 Order name: Flu; Complete Time: 11:42 pm1 05/26 10:11 Order name: Strep; Complete Time: 11:42 pm1 05/26 10:11 Order name: Droplet/Contact Precautions; Complete Time: 10:23 pm1 05/26 10:11 Order name: Labs collected and sent; Complete Time: 11:08 pm1 05/26 11:37 Order name: Throat Culture EDMS Administered Medications: No medications were administered Disposition: 15:53 Co-signature as Attending Physician, Ron Blackman MD. rn Disposition: 05/26/20 11:47 Discharged to Home. Impression: Acute upper respiratory infection, unspecified. - Condition is Stable. - Discharge Instructions: Antibiotic Resistance, Upper Respiratory Infection, Adult, COVID-19. - Prescriptions for Guaifenesin AC 10- 100 mg/5 mL Oral Liquid - take 10 milliliter by ORAL route every 4 hours As needed; 240 milliliter. - Work release form, Medication Reconciliation Form, Thank You Letter, Antibiotic Education, Prescription Opioid Use form. - Follow up: Emergency Department; When: As needed; Reason: Worsening of condition. Follow up: Private Physician; When: 2 - 3 days; Reason: Recheck today's complaints, Continuance of care, Re-evaluation by your physician. - Problem is new. - Symptoms have improved. Signatures: Dispatcher [employer] EDMS Ron Blackman MD MD rn Calderon, Audri, RN RN aa5 Danie Aguilera NP [employer]PER[employer] KILN TENDER pm1 Juan Zepeda RN RN bp Corrections: (The following items were deleted from the chart) 12:08 11:47 05/26/2020 11:47 Discharged to Home. Impression: Acute upper respiratory bp infection, unspecified. Condition is Stable. Forms are Medication Reconciliation Form, Thank You Letter, Antibiotic Education, Prescription Opioid Use. Follow up: Emergency Department; When: As needed; Reason: Worsening of condition. Follow up: Private Physician; When: 2 - 3 days; Reason: Recheck today's complaints, Continuance of care, Re-evaluation by your physician. Problem is new. Symptoms have improved. pm1
[2020-05-26 12:25] VITALS: TEMP 98.5
[2020-05-26 12:28] VITALS: BP 121/79; O2SAT 98
== END 2020-05-26 12:08 | disposition home or self-care (01) ==
LOC: ER 09:54
DX: J06.9 Acute upper respiratory infection, unspecified (principal); I10 Essential (primary) hypertension; F17.210 Nicotine dependence, cigarettes, uncomplicated; Z88.0 Allergy status to penicillin
CPT/HCPCS: 87070; 87081; 87804 ×2; 99282; U0002

== ENCOUNTER 2020-06-17 00:32 | Emergency (ER) | payer OTHER ==
--- OUTSIDE RECORDS SUMMARY | 2020-06-17 00:35 | XMS REPORT | Continuity of Care Document ---
:1990 Author Organization [facility] t Address [address] [place] [address] Care Team Providers Name Role Phone Gayathri [...] Facility Department ID 2020-04-06 2020-04-06 Office [facility] [phone] [id number] 08:07:21 08:42:27 Visit Jodie Trinh [facility] [employer] SENIOR MANAGER [id number] [facility] [id number] MATERNAL [phone] & CHILD [address] [place] [address] Results This patient has no known results.
[2020-06-17 01:19] LABS: Absolute Lymphocytes (CBC) 2.8 K/uL (0.7-4.9); Basophils % 0.6 % (0-1.3); Hematocrit 40.4 % (36.0-45.0); Lymphocytes % 27.5 % (15.3-44.8); MPV 8.4 fL (7.6-11.3); RBC Red Blood Cell Count 5.19 M/uL (3.86-4.86)
[2020-06-17] MEDS ORDERED: MORPHINE 4 MG/ML SYR ONE (01:31)
[2020-06-17] MEDS ORDERED: ONDANSETRON 4 MG/2 ML VIAL ONE (01:31)
[2020-06-17 01:36] LABS: Albumin 3.5 g/dL (3.4-5.0); Bilirubin Direct 0.1 mg/dL (0-0.2); Bilirubin Total 0.2 mg/dL (0.2-1.0); Potassium 3.6 mmol/L (3.5-5.1); Protein, Total 6.9 g/dL (6.4-8.2)
[2020-06-17 02:13] LABS: Urine Blood 3+ (NEG); Urine Glucose NEGATIVE (NEG); Urine Protein NEGATIVE (NEG); Urine Specific Gravity >1.030 (1.005-1.030); Urine pH 5.5 (5.0-7.0)
--- NOTE | 2020-06-17 03:18 | EDPHYS ---
Physician Documentation [facility] Name: Tyra Villalta Age: 29 yrs Sex: Female : 1990 Arrival Date: 06/17/2020 Time: 00:34 Bed 15 Private MD: ED Physician Jaxson Gonzales HPI: 06/17 01:38 This 29 yrs old Female presents to ER via Ambulatory with complaints of tw4 Abdominal Pain. 01:38 The patient presents with abdominal pain. The patient presents with abdominal pain in tw4 the epigastric area. Onset: The symptoms/episode began/occurred today. The symptoms do not radiate. Associated signs and symptoms: none. Severity of pain: At its worst the pain was moderate in the emergency department the pain is unchanged. The patient has not experienced similar symptoms in the past. APPROVER: 00:51 LMP 06/14/2020 sg Historical: - Allergies: 00:44 PENICILLINS (Upset stomach); sg - PMHx: 00:44 Hypertension; sg - PSHx: 00:44 ; sg - Immunization history:: Adult Immunizations up to date. - Social history:: Smoking status: Patient denies any tobacco usage or history of. ROS: 01:38 Constitutional: Negative for fever, chills, and weight loss, Eyes: Negative for injury, tw4 pain, redness, and discharge, Cardiovascular: Negative for chest pain, palpitations, and edema, Respiratory: Negative for shortness of breath, cough, wheezing, and pleuritic chest pain, Back: Negative for injury and pain, MS/Extremity: Negative for injury and deformity, Skin: Negative for injury, rash, and discoloration, Neuro: Negative for headache, weakness, numbness, tingling, and seizure. 01:38 Abdomen/GI: Positive for abdominal pain, nausea and vomiting, nausea, vomiting, and diarrhea, nausea, vomiting, Negative for diarrhea, constipation, abdominal cramps, abdominal distension, anorexia, dysphagia, hematemesis, black/tarry stool, rectal pain, rectal bleeding. Exam: 01:38 Constitutional: This is a well developed, well nourished patient who is awake, alert, tw4 and in no acute distress. Head/Face: Normocephalic, atraumatic. Chest/axilla: Normal chest wall appearance and motion. Nontender with no deformity. No lesions are appreciated. Cardiovascular: Regular rate and rhythm with a normal S1 and S2. No gallops, murmurs, or rubs. Normal PMI, no JVD. No pulse deficits. Respiratory: Lungs have equal breath sounds bilaterally, clear to auscultation and percussion. No rales, rhonchi or wheezes noted. No increased work of breathing, no retractions or nasal flaring. Skin: Warm, dry with normal turgor. Normal color with no rashes, no lesions, and no evidence of cellulitis. MS/ Extremity: Pulses equal, no cyanosis. Neurovascular intact. Full, normal range of motion. Neuro: Awake and alert, GCS 15, oriented to person, place, time, and situation. Cranial nerves II-XII grossly intact. Motor strength 5/5 in all extremities. Sensory grossly intact. Cerebellar exam normal. Normal gait. 01:38 Abdomen/GI: Inspection: abdomen appears normal, Bowel sounds: diminished, Palpation: moderate abdominal tenderness, in the epigastric area, right upper quadrant and left upper quadrant. Vital Signs: 00:51 BP 102 / 76; Pulse 89; Resp 18; Temp 97.7; Pulse Ox 100% on R/A; Pain 10/10; sg 01:45 BP 122 / 63; Pulse 57; Resp 16; Pulse Ox 98% on R/A; jb4 02:30 BP 106 / 45; Pulse 56; Resp 16; Pulse Ox 98% on R/A; jb4 03:30 BP 113 / 60; Pulse 75; Resp 16; Pulse Ox 99% on R/A; jb4 MDM: 00:56 Patient medically screened. tw4 01:38 Data reviewed: vital signs, nurses notes. Data interpreted: Pulse oximetry: tw4 Interpretation: normal. Counseling: I had a detailed discussion with the patient and/or guardian regarding: the historical points, exam findings, and any diagnostic results supporting the discharge/admit diagnosis. 06/17 00:37 Order name: Basic Metabolic Panel; Complete Time: 01:48 4 06/17 01:48 Interpretation: Normal except: CL 109; BUN 21; GLUC 114; GFR 89. tw4 06/17 00:37 Order name: CBC with Diff; Complete Time: 01:48 4 06/17 01:48 Interpretation: Normal except: RBC 5.19; MCV 77.8; MCH 26.4; RDW 15.5. 06/17 00:37 Order name: Hepatic Function; Complete Time: 01:48 06/17 01:49 Interpretation: Normal except: A/G 1.0; AST 11. 06/17 00:37 Order name: Lipase; Complete Time: 01:48 06/17 01:49 Interpretation: Within normal limits: LIP 153. 06/17 02:06 Order name: Urine Dipstick--Ancillary (enter results); Complete Time: 02:33 2 06/17 02:33 Interpretation: Normal except: UBLD 3+. 06/17 02:06 Order name: Urine --Ancillary (enter results); Complete Time: 02:33 2 06/17 02:33 Interpretation: Normal except: USPGR >1.030. 06/17 00:37 Order name: IV Saline Lock; Complete Time: 01:15 06/17 00:37 Order name: Labs collected and sent; Complete Time: 01:15 06/17 00:55 Order name: CT Abd/Pelvis - IV Contrast Only 06/17 01:36 Order name: Urine Dipstick-Ancillary (obtain specimen); Complete Time: 02:03 06/17 01:36 Order name: Urine Test (obtain specimen); Complete Time: 02:03 06/17 03:06 Order name: PO challenge; Complete Time: 03:07 [facility] Administered Medications: 01:19 Drug: Zofran (Ondansetron) 4 mg Route: IVP; Site: right antecubital; [facility] 01:45 Follow up: Response: No adverse reaction [facility] 01:22 Drug: morphine 4 mg {Note: rass score 0.} Route: IVP; Site: right antecubital; [facility] 01:45 Follow up: Response: No adverse reaction; Pain is decreased; RASS: Alert and Calm (0) [facility] 03:30 Drug: morphine 2 mg {Note: rass score 0.} Route: IVP; Site: right antecubital; [facility] 03:45 Follow up: Response: No adverse reaction; Pain is decreased; RASS: Alert and Calm (0) [facility] Disposition: 06/17/20 03:17 Discharged to Home. Impression: Biliary colic. - Condition is Stable. - Discharge Instructions: Biliary Colic, Adult. - Prescriptions for Zofran 4 mg Oral Tablet - take 1 tablet by ORAL route every 12 hours As needed; 6 tablet. - Medication Reconciliation Form, Thank You Letter, Antibiotic Education, Prescription Opioid Use form. - Follow up: Private Physician; When: Upon discharge from the Emergency Department; Reason: Recheck today's complaints, Continuance of care, Re-evaluation by your physician. Follow up: Laureano Shipley MD; When: Upon discharge from the Emergency Department; Reason: Recheck today's complaints, Continuance of care, Re-evaluation by your physician. Follow up: Woo Hernandez MD; When: Upon discharge from the Emergency Department; Reason: Recheck today's complaints, Continuance of care, Re-evaluation by your physician. - Problem is new. - Symptoms have improved. Signatures: Dispatcher [employer] EDTirso Ocampo RN RN Woo Chance RN RN jb4 Jaxson Gonzales MD MD tw4 Corrections: (The following items were deleted from the chart) 03:45 03:17 06/17/2020 03:17 Discharged to Home. Impression: Biliary colic. Condition is jb4 Stable. Forms are Medication Reconciliation Form, Thank You Letter, Antibiotic Education, Prescription Opioid Use. Follow up: Private Physician; When: Upon discharge from the Emergency Department; Reason: Recheck today's complaints, Continuance of care, Re-evaluation by your physician. Follow up: Laureano Shipley; When: Upon discharge from the Emergency Department; Reason: Recheck today's complaints, Continuance of care, Re-evaluation by your physician. Follow up: Woo Hernandez; When: Upon discharge from the Emergency Department; Reason: Recheck today's complaints, Continuance of care, Re-evaluation by your physician. Problem is new. Symptoms have improved. tw4
--- NOTE | 2020-06-17 03:18 | ER ---
Nurse's Notes [facility] Name: Tyra Villalta Age: 29 yrs Sex: Female : 1990 Arrival Date: 06/17/2020 Time: 00:34 Bed 15 Private MD: Diagnosis: Biliary colic Presentation: 06/17 00:42 Chief complaint: Patient states: Epigastric pain that began last night, worsening now. sg pt states pain is like a contraction that is constant, pt denies N/V/D/Fever at this time. Coronavirus screen: Client denies travel out of the [place] in the last 14 days. At this time, the client does not indicate any symptoms associated with coronavirus-19. Ebola Screen: Patient negative for fever greater than or equal to 101.5 degrees Fahrenheit, and additional compatible Ebola Virus Disease symptoms Patient denies exposure to infectious person. Patient denies travel to an Ebola-affected area in the 21 days before illness onset. No symptoms or risks identified at this time. Initial Sepsis Screen: Does the patient meet any 2 criteria? No. Patient's initial sepsis screen is negative. Does the patient have a suspected source of infection? Yes: Acute abdominal pain. Risk Assessment: Do you want to hurt yourself or someone else? Patient reports no desire to harm self or others. Onset of symptoms was June 17, 2020. Care prior to arrival: None. Transition of care: patient was not received from another setting of care. 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 - Social history:: Smoking status: Patient denies any tobacco usage or history of. Screenin:00 Abuse screen: Denies threats or abuse. Nutritional screening: No deficits noted. jb4 Tuberculosis screening: No symptoms or risk factors identified. Fall Risk None identified. Assessment: 01:00 General: Appears in no apparent distress. uncomfortable, Behavior is cooperative, jb4 anxious. Pain: Complains of pain in right upper quadrant Pain radiates to mid back area and left upper quadrant Pain currently is 10 out of 10 on a pain scale. Quality of pain is described as crampy. Neuro: Level of Consciousness is awake, alert, obeys commands, Oriented to person, place, time, situation. Cardiovascular: Patient's skin is warm and dry. Respiratory: Airway is patent. GI: Abdomen is round obese, Abd is soft X 4 quads Abd is non tender in left upper quadrant, right lower quadrant and left lower quadrant Abdomen is tender to palpation in right upper quadrant Reports upper abdominal pain. : No signs and/or symptoms were reported regarding the genitourinary system. EENT: No signs and/or symptoms were reported regarding the EENT system. Derm: Skin is intact, Skin is pink, warm \T\ dry. Musculoskeletal: Circulation, motion, and sensation intact. Range of motion: intact in all extremities. 02:00 Reassessment: Patient appears in no apparent distress at this time. Patient and/or jb4 family updated on plan of care and expected duration. Pain level reassessed. Patient is alert, oriented x 3, equal unlabored respirations, skin warm/dry/pink. Patient states feeling better. 02:56 Reassessment: Patient appears in no apparent distress at this time. Patient and/or jb4 family updated on plan of care and expected duration. Pain level reassessed. Patient is alert, oriented x 3, equal unlabored respirations, skin warm/dry/pink. Patient states feeling better. 03:35 Reassessment: Patient appears in no apparent distress at this time. Patient and/or jb4 family updated on plan of care and expected duration. Pain level reassessed. Patient is alert, oriented x 3, equal unlabored respirations, skin warm/dry/pink. Vital Signs: 00:51 BP 102 / 76; Pulse 89; Resp 18; Temp 97.7; Pulse Ox 100% on R/A; Pain 10/10; sg 01:45 BP 122 / 63; Pulse 57; Resp 16; Pulse Ox 98% on R/A; jb4 02:30 BP 106 / 45; Pulse 56; Resp 16; Pulse Ox 98% on R/A; jb4 03:30 BP 113 / 60; Pulse 75; Resp 16; Pulse Ox 99% on R/A; jb4 ED Course: 00:34 Patient arrived in ED. cl3 00:36 Christian, Jaxson, MD is Attending Physician. tw4 00:42 Arm band placed on. sg 00:44 Triage completed. sg 01:00 Patient has correct armband on for positive identification. Bed in low position. Call jb4 light in reach. Side rails up X 1. Pulse ox on. NIBP on. 01:07 Woo Chance, RN is Primary Nurse. jb4 01:10 Initial lab(s) drawn, by mt, sent to lab. Inserted saline lock: 20 gauge in right jb4 antecubital area, using aseptic technique. Blood collected. 02:31 CT Abd/Pelvis - IV Contrast Only In Process Unspecified. EDMS 03:16 Laureano Shipley MD is Referral Physician. tw4 03:16 Woo Hernandez MD is Referral Physician. tw4 03:44 No provider procedures requiring assistance completed. IV discontinued, intact, jb4 bleeding controlled, No redness/swelling at site. Pressure dressing applied. Administered Medications: 01:19 Drug: Zofran (Ondansetron) 4 mg Route: IVP; Site: right antecubital; jb4 01:45 Follow up: Response: No adverse reaction jb4 01:22 Drug: morphine 4 mg {Note: rass score 0.} Route: IVP; Site: right antecubital; jb4 01:45 Follow up: Response: No adverse reaction; Pain is decreased; RASS: Alert and Calm (0) jb4 03:30 Drug: morphine 2 mg {Note: rass score 0.} Route: IVP; Site: right antecubital; jb4 03:45 Follow up: Response: No adverse reaction; Pain is decreased; RASS: Alert and Calm (0) jb4 Intake: 12 23:00 IV: 1000ml; Total: 1000ml. jb4 Outcome: 12 03:17 Discharge ordered by . tw4 03:45 Discharged to home ambulatory. jb4 03:45 Condition: stable 03:45 Discharge instructions given to patient, Instructed on discharge instructions, follow up and referral plans. medication usage, Demonstrated understanding of instructions, follow-up care, medications, Prescriptions given X 1. 03:45 Patient left the ED. jb4 Signatures: Dispatcher [employer] EDUT Tirso Georges RN RN Woo Chance RN RN [facility] Jaxson Gonzales MD MD [facility] Tru Jenkins cl3
[2020-06-17] MEDS ORDERED: MORPHINE 2 MG/ML SYR ONE (03:42)
--- NOTE | 2020-06-18 09:57 | RAD REPORT ---
EXAM DESCRIPTION: CT Abdomen and Pelvis With Intravenous Contrast CLINICAL HISTORY: The patient is 29 years old and is Female; ABD PAIN TECHNIQUE: Axial computed tomography images of the abdomen and pelvis with intravenous contrast. S agittal and coronal reformatted images were created and reviewed. This CT exam was performed using one or more of the following dose reduction techniques: automated exposure control, adjustment of t he mA and/or kV according to patient size, and/or use of iterative reconstruction technique. COMPARISON: CT of the abdomen and pelvis October 27, 2019 FINDINGS: LUNG BASES: Unremarkable. No mass. No consolidation. ABDOMEN: LIVER: Unremarkable. No mass. GALLBLADDER AND BILE DUCTS: The gallbladder is distended. Suggestion of a few noncalcified galls tones near the neck of the gallbladder is noted. Trace pericholecystic inflammation is present. PANCREAS: No ductal dilation. No mass. SPLEEN: A splenule is present within the left upper quadrant. The spleen is unremarkable. ADRENALS: Unremarkable. No mass. KIDNEYS AND URETERS: Unremarkable. The kidneys enhance symmetrically. No obstructing renal or ur eteral calculus is seen. No hydronephrosis or hydroureter. No perinephric fluid or stranding. STOMACH AND BOWEL: The stomach is distended with food contents. The small bowel is normal in daisy iber. Stool is present throughout colon. There is no mucosal thickening or evidence of bowel obstruct ion. PELVIS: APPENDIX: The appendix is normal in caliber without surrounding inflammation. BLADDER: The bladder is nearly empty. REPRODUCTIVE: Unremarkable as visualized. ABDOMEN and PELVIS: INTRAPERITONEAL SPACE: Unremarkable. No free air. No significant fluid collection. BONES/JOINTS: Minimal degenerative change at L2-L3 is noted. SOFT TISSUES: The soft tissues are normal. VASCULATURE: Multiple calcified phleboliths are present within the pelvis. No abdominal aortic aneurysm. LYMPH NODES: Unremarkable. No enlarged lymph nodes. IMPRESSION: Distended gallbladder with suggestion of a few noncalcified gallstones and trace pericho lecystic inflammation. If there is clinical concern for acute gallbladder pathology, findings could b e further evaluated with ultrasound or HIDA scan. 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 The interpreting r adiologist is fully responsible for the content of the report.
[2020-06-21 07:54] VITALS: TEMP 97.7
[2020-06-21 07:58] VITALS: BP 113/60; O2SAT 99
== END 2020-06-17 03:45 | disposition home or self-care (01) ==
LOC: ER 00:32
DX: K80.50 Calculus of bile duct without cholangitis or cholecystitis without obstruction (principal); I10 Essential (primary) hypertension; Z88.0 Allergy status to penicillin
CPT/HCPCS: 85025; 80048; 36415; 81025; 80076; 81003; 83690; 74177; Q9967; J2270; J2405; 96374; 96375; 99284

== ENCOUNTER 2020-06-25 08:38 | Day surgery (SDC) | payer OTHER ==
--- NOTE | 2020-06-21 16:59 | RAD REPORT ---
EXAM DESCRIPTION: CT - Abdomen Wo Contrast CLINICAL HISTORY: pre-op Abdominal pain COMPARISON: Abdomen Pelvis W Contrast dated 06/17/[address] scans are performed using dose optimization technique as appropriate and may includ e automated exposure control or mA/KV adjustment according to patient size. FINDINGS: The lower lung booth are clear. The liver, spleen, pancreas, adrenal glands and kidneys are within normal limits. Cholelithiasis. No free fluid, bowel obstruction or free air. No significant adenopathy in the abdomen. No significant bony finding. IMPRESSION: Cholelithiasis.
[2020-06-21 17:07] LABS: Absolute Lymphocytes (CBC) 2.5 K/uL (0.7-4.9); Basophils % 0.7 % (0-1.3); Hematocrit 42.9 % (36.0-45.0); Lymphocytes % 27.8 % (15.3-44.8); MPV 8.4 fL (7.6-11.3); RBC Red Blood Cell Count 5.48 M/uL (3.86-4.86)
[2020-06-21 17:33] LABS: Albumin 3.6 g/dL (3.4-5.0); Bilirubin Total 0.3 mg/dL (0.2-1.0); Potassium 3.7 mmol/L (3.5-5.1); Protein, Total 7.6 g/dL (6.4-8.2)
[2020-06-25] MEDS: Ringers Lactate 1,000 ML IV ONE (09:15)
--- OUTSIDE RECORDS SUMMARY | 2020-06-25 09:26 | XMS REPORT | Continuity of Care Document ---
:1990 Author Organization [facility] t Address [address] [place] [address] Care Team Providers Name Role Phone Gayathri [...] Clinicians Facility Department ID 2020-04-06 2020-04-06 Office RICHARD Godwin [phone] [id number] 08:07:21 08:42:27 Visit Jodie Trinh ELECTRIC SEALING MACHINE OPERATOR [id number] [facility] [id number] MATERNAL [phone] & CHILD [address] [place] [address] Results This patient has no known results.
[2020-06-25] MEDS: CEFOXITIN/SWI 2gm 2 GM/20 ML SYR IV ONE ×2 (09:29→11:03)
[2020-06-25 09:35] LABS: Specific Gravity 1.015 (1.005-1.030)
[2020-06-25] MEDS ORDERED: propofoL 200 MG/20 ML VIAL IV ONE (10:45)
[2020-06-25] MEDS ORDERED: MIDAZOLAM HCL 2 MG/2 ML INJ ONE (10:45)
[2020-06-25] MEDS ORDERED: ROCURONIUM 50 MG/5 ML VIAL IV ONE ×2 (10:45→11:31)
[2020-06-25] MEDS ORDERED: FENTANYL CITR 100 MCG/2 ML ONE ×3 (10:45→12:26)
[2020-06-25] MEDS ORDERED: LIDOCAINE 1% MPF 5 ML VIAL ONE (10:45)
[2020-06-25] MEDS ORDERED: EPHEDRINE SULF 50 MG/ML VIAL ONE (11:25)
[2020-06-25] MEDS ORDERED: NS 0.9% VIAL 10 ML ONE (11:25)
[2020-06-25] MEDS ORDERED: KETOROLAC 30 MG/ML INJ ONE (11:31)
[2020-06-25] MEDS ORDERED: ONDANSETRON 4 MG/2 ML VIAL ONE (11:31)
[2020-06-25] MEDS ORDERED: dexAMETHasone 10 MG/ML VIAL ONE (11:31)
[2020-06-25] MEDS ORDERED: Ringers Lactate 1,000 ML IV ONE (12:21)
--- NOTE | 2020-06-25 12:28 | P.OP ---
Preoperative diagnosis: Acute and Chronic Cholecystitis Postoperative diagnosis: Acute and Chronic Cholecystitis Primary procedure: Laparoscopic Cholecystectomy Anesthesia: GETA + Local Estimated blood loss: <5cc Specimen: Gallbladder Findings: Short Cystic Artery, ventral abdominal wall hernias, steatosis to liver Complications: None Transferred to: Recovery Room Condition: Good
[2020-06-25] MEDS ORDERED: GLYCOPYRROLATE 0.2 MG/ML SYR ONE (12:31)
[2020-06-25] MEDS ORDERED: NEOSTIGMINE 1 MG/ML -5 ML ONE (12:31)
[2020-06-25] MEDS: HYDROMORPHONE HCL 1 MG/ML INJ ONE ×4 (12:45→13:10)
[2020-06-25] MEDS ORDERED: PROMETHAZINE INJ 25 MG/ML AMP ONE (12:57)
--- NOTE | 2020-06-25 13:27 | OP ---
Date of Procedure: 06/25/2020 Surgeon: Misbah Adams MD, Preoperative Diagnosis: Acute and chronic cholecystitis with cholelithiasis. Postoperative Diagnosis: Acute and chronic cholecystitis with cholelithiasis. Procedure Performed: Laparoscopic cholecystectomy. Anesthesia: General endotracheal plus local 0.5% Marcaine without epinephrine. Estimated Blood Loss: Less than 5 mL. Specimen: Gallbladder. Findings: 1.Short cystic duct. 2.Multiple ventral abdominal hernias. 3.Fatty steatosis changes to liver. Disposition: The patient is transferred to recovery room in good condition. Complications: No complications. Procedure In Detail: After informed consent was obtained, the patient was brought to the operating r oom, prepped and draped in the usual sterile fashion. After adequate anesthesia was achieved, a supr aumbilical area was anesthetized with 0.25% Marcaine, sharply incised. A 5 mm trocar was introduced in the abdomen without evidence of complication. Insufflation was obtained to 15 mmHg at this time. There was no injury to vital structures upon entry into the abdomen. The patient was positioned in head up position. Three additional trocars were placed, one in the epigastrium, two in the right upp er quadrant. All of these were similarly anesthetized, sharply incised. A 5 mm trocar was introduce d in the abdomen without evidence of complication. The umbilical trocar was then up-sized to 12 mm u nder direct visualization without evidence of complication. The patient was positioned in head-up, r ight-side up position. Ratcheted grasper was used to grasp the patient's gallbladder and dissect the omentum off the anterior surface. The gallbladder was found to be somewhat encased in this area, ho wever, the gallbladder was long and distended with stones near the Nima pouch of the gallbladder. Additionally, ventral abdominal hernias were noted with some omental attachments to these areas. T here was no evidence of incarceration at these points. Focusing back on the gallbladder, I dissected down the Nima pouch to dissect the cystic duct and cystic artery. The cystic artery was found t o be quite short in its course and the cystic duct was in normal anatomic position. Both of these st ructures were skeletonized. A critical view of safety was obtained. At this point, the structures w ere then doubly ligated on the proximal side and singly on the distal side of both cystic duct and cy stic artery. These structures were then ligated with Endo Sagrario. At this point, the gallbladder wa s removed from the hepatic fossa without evidence of complication using electrocautery. The gallblad hcun was then placed intact in the EndoCatch bag, removed the umbilical trocar and sent off for pathol ogic examination. The area was copiously irrigated multiple times after insufflation obtained. The clips were in good anatomic position. All areas were then suctioned out. All clips were found again in good anatomic position. The patient was positioned back in neutral position. Remaining effluent was then suctioned out. The clips remained in good anatomic position. The umbilical trocar was the n removed. The umbilical trocar site was closed using a Fletcher-Moon suture passer with a 0 Vicry l in an interrupted fashion with good approximation of tissues. The abdomen was completely desufflat ed under direct visualization without evidence of complication. All trocars were removed. All skin incisions were copiously irrigated, closed with 4-0 Monocryl in a running fashion. Dermabond was josee sid over top. The patient tolerated the procedure well without evidence of complication and was orantes sferred to PACU in good condition. All counts were correct at the end of the case. DAPHNIE/VIC Voice ID: [id number] Report ID: [id number]
[2020-06-25 14:35] VITALS: BP 135/96; TEMP 97.3; O2SAT 100
[2020-06-25] MEDS ORDERED: HYDROCODONE/APAP 10/325 TAB ONE (14:38)
== END 2020-06-25 15:25 | disposition home or self-care (01) ==
LOC: OR 08:38
PROVIDERS: ATTEND Surgery
PROC: 0FT44ZZ Resection of Gallbladder, Percutaneous Endoscopic Approach (ICD-10-PCS; principal; 2020-06-25 10:30)
DX: K80.12 Calculus of gallbladder with acute and chronic cholecystitis without obstruction (principal); K43.9 Ventral hernia without obstruction or gangrene; K76.0 Fatty (change of) liver, not elsewhere classified; E66.01 Morbid (severe) obesity due to excess calories; Z68.43 Body mass index [BMI] 50.0-59.9, adult; Z20.828 Contact with and (suspected) exposure to other viral communicable diseases
CPT/HCPCS: 85025; 36415; 81025; 88304; 80053; 74150; 47562; U0002; J2704; J2550; J3010 ×3; J1100; J1170 ×2; J2710; J0694; J7120 ×2; J2405; J2250

== ENCOUNTER 2020-06-26 18:36 | Emergency (ER) | payer OTHER ==
--- OUTSIDE RECORDS SUMMARY | 2020-06-26 18:38 | XMS REPORT | Continuity of Care Document ---
:1990 Author Organization [facility] t Address [address] [place] [address] Care Team Providers Name Role Phone Gayathri [...] Department ID 2020-04-06 2020-04-06 Office RICHARD Godwin [phone] 08:07:21 08:42:27 Visit Jodie Trinh GRIEVANCE COORDINATOR [id number] [facility] [id number] MATERNAL [phone] & CHILD [address] [place] [address] Results This patient has no known results.
[2020-06-26 19:17] LABS: Absolute Lymphocytes (CBC) 3.1 K/uL (0.7-4.9); Basophils % 0.6 % (0-1.3); Hematocrit 41.8 % (36.0-45.0); Lymphocytes % 22.2 % (15.3-44.8); MPV 8.2 fL (7.6-11.3); RBC Red Blood Cell Count 5.39 M/uL (3.86-4.86)
[2020-06-26] MEDS ORDERED: MORPHINE 4 MG/ML SYR ONE (19:29)
[2020-06-26] MEDS ORDERED: ONDANSETRON 4 MG/2 ML VIAL ONE (19:29)
[2020-06-26 19:40] LABS: Albumin 3.6 g/dL (3.4-5.0); Bilirubin Direct 0.1 mg/dL (0-0.2); Bilirubin Total 0.3 mg/dL (0.2-1.0); Potassium 4.2 mmol/L (3.5-5.1); Protein, Total 7.3 g/dL (6.4-8.2)
--- NOTE | 2020-06-26 20:12 | RAD REPORT ---
EXAM DESCRIPTION: CT - Abdomen Pelvis W Contrast - 06/26/2020 7:47 pm CLINICAL HISTORY: Abdominal pain COMPARISON: June 21, 2020 TECHNIQUE: Computed axial tomography of the abdomen pelvis was obtained. 100 cc Isovue-300 was admin istered intravenously. Oral contrast was not requested which limits evaluation of bowel. All CT scans are performed using dose optimization technique as appropriate and may include automated exposure control or mA/KV adjustment according to patient size. FINDINGS: The liver, spleen, pancreas, adrenal and kidneys appear unremarkable. There is no evidence of diverticulitis. Normal appendix Cholecystectomy. 2 centimeter fluid collection within the gallbladder fossa Moderate amount stool within the colon IMPRESSION: Cholecystectomy. 2 centimeter fluid collection within the gallbladder fossa probably not significant. This can be monitored on a followup ultrasound
--- NOTE | 2020-06-26 20:26 | EDPHYS ---
Physician Documentation [facility] Name: Tyra Villalta Age: 29 yrs Sex: Female : 1990 Arrival Date: 06/26/2020 Time: 18:38 Bed 17 Private MD: MARISABEL Physician Felton Salinas HPI: 06/26 19:31 This 29 yrs old Female presents to ER via Wheelchair with complaints of Post kb Surgical Pain. 19:31 The patient presents with abdominal pain in the right upper quadrant. Onset: The kb symptoms/episode began/occurred yesterday. The symptoms do not radiate. Associated signs and symptoms: none. The symptoms are described as constant. Modifying factors: The symptoms are alleviated by nothing, the symptoms are aggravated by movement, pressure. Severity of pain: At its worst the pain was moderate in the emergency department the pain is unchanged. The patient has not experienced similar symptoms in the past. The patient has been recently seen by a physician:. Pt reports she had her gallbladder removed yesterday and the tylenol #3 isn't working for the pain. Pain has been steady since surgery, no increase. Called Dr Adams and was told to take 2 Tylenol #3 instead of one, but it didn't help either. 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 - Social history:: Smoking status: Patient/guardian denies using. ROS: 19:30 Constitutional: Negative for fever, chills, and weight loss, Cardiovascular: Negative kb for chest pain, palpitations, and edema, Respiratory: Negative for shortness of breath, cough, wheezing, and pleuritic chest pain, Back: Negative for injury and pain, MS/Extremity: Negative for injury and deformity, Skin: Negative for injury, rash, and discoloration, Neuro: Negative for headache, weakness, numbness, tingling, and seizure. 19:30 Abdomen/GI: Positive for abdominal pain, Negative for nausea, vomiting, and diarrhea. Exam: 19:30 Constitutional: This is a well developed, well nourished patient who is awake, alert, kb and in no acute distress. Head/Face: Normocephalic, atraumatic. Chest/axilla: Normal chest wall appearance and motion. Nontender with no deformity. No lesions are appreciated. Cardiovascular: Regular rate and rhythm with a normal S1 and S2. No gallops, murmurs, or rubs. Normal PMI, no JVD. No pulse deficits. Respiratory: Lungs have equal breath sounds bilaterally, clear to auscultation and percussion. No rales, rhonchi or wheezes noted. No increased work of breathing, no retractions or nasal flaring. Skin: Warm, dry with normal turgor. Normal color with no rashes, no lesions, and no evidence of cellulitis. MS/ Extremity: Pulses equal, no cyanosis. Neurovascular intact. Full, normal range of motion. Neuro: Awake and alert, GCS 15, oriented to person, place, time, and situation. Cranial nerves II-XII grossly intact. Motor strength 5/5 in all extremities. Sensory grossly intact. Cerebellar exam normal. Normal gait. 19:30 Abdomen/GI: Inspection: surgical incisions noted to umbilicus and right side of abd. , Bowel sounds: normal, Palpation: soft, in all quadrants, moderate abdominal tenderness, in the right upper quadrant and right lower quadrant. Vital Signs: 18:43 BP 120 / 60; Pulse 82; Resp 16; Temp 98.2; Pulse Ox 99% ; sv 19:30 BP 122 / 68; Pulse 65; Resp 18; Pulse Ox 99% on R/A; wh 20:30 BP 112 / 63; Pulse 68; Resp 20; Pulse Ox 99% on R/A; wh MDM: 18:51 Patient medically screened. kb 19:31 Data reviewed: vital signs, nurses notes. Data interpreted: Pulse oximetry: on room air kb is 99 %. Interpretation: normal. 20:20 Counseling: I had a detailed discussion with the patient and/or guardian regarding: the kb historical points, exam findings, and any diagnostic results supporting the discharge/admit diagnosis, lab results, radiology results, the need for outpatient follow up, a general surgeon, to return to the emergency department if symptoms worsen or persist or if there are any questions or concerns that arise at home. 06/26 18:52 Order name: Basic Metabolic Panel; Complete Time: 19:44 kb 06/26 18:52 Order name: CBC with Diff; Complete Time: 19:25 kb 06/26 18:52 Order name: Hepatic Function; Complete Time: 19:44 kb 06/26 18:52 Order name: Lipase; Complete Time: 19:44 kb 06/26 18:52 Order name: CT Abd/Pelvis - IV Contrast Only; Complete Time: 20:14 kb 06/26 18:52 Order name: IV Saline Lock; Complete Time: 19:27 kb 06/26 18:52 Order name: Labs collected and sent; Complete Time: 19:27 kb Administered Medications: 19:26 Drug: morphine 4 mg {Note: RASS 0.} Route: IVP; Site: right hand; 20:32 Follow up: Response: No adverse reaction; Pain is decreased; RASS: Alert and Calm (0) 19:28 Drug: Zofran (Ondansetron) 4 mg Route: IVP; Site: right hand; 20:32 Follow up: Response: No adverse reaction; Nausea is decreased 20:37 Drug: [place] 10 mg-325 mg 1 tabs Route: PO; 20:45 Follow up: Response: No adverse reaction; RASS: Alert and Calm (0) Disposition: 06/27 11:55 Co-signature as Attending Physician, Felton Salinas MD I agree with the assessment and [facility] plan of care. Disposition: 06/26/20 20:26 Discharged to Home. Impression: Upper abdominal pain, unspecified. - Condition is Stable. - Discharge Instructions: Abdominal Pain, Adult, [id number]. - Medication Reconciliation Form, Thank You Letter, Antibiotic Education, Prescription Opioid Use form. - Follow up: Emergency Department; When: As needed; Reason: Worsening of condition. Follow up: Private Physician; When: 2 - 3 days; Reason: Recheck today's complaints, Continuance of care, Re-evaluation by your physician. Signatures: Dispatcher [employer] Shavonne Hazel, DOYLE ANGELOP-Kortney Perez RN RN sv Anderson, Corey, MD MD cha Habalo, Winsy Corrections: (The following items were deleted from the chart) 06/26 20:46 20:26 06/26/2020 20:26 Discharged to Home. Impression: Upper abdominal pain, wh unspecified. Condition is Stable. Discharge Instructions: Abdominal Pain, Adult, [id number]. Forms are Medication Reconciliation Form, Thank You Letter, Antibiotic Education, Prescription Opioid Use. Follow up: Emergency Department; When: As needed; Reason: Worsening of condition. Follow up: Private Physician; When: 2 - 3 days; Reason: Recheck today's complaints, Continuance of care, Re-evaluation by your physician. kb
--- NOTE | 2020-06-26 20:26 | ER ---
Nurse's Notes [facility] Name: Tyra Villalta Age: 29 yrs Sex: Female : 1990 Arrival Date: 06/26/2020 Time: 18:38 Bed 17 Private MD: Diagnosis: Upper abdominal pain, unspecified Presentation: 06/26 18:42 Chief complaint: Patient states: had a cholecystectomy yesterday with Dr Adams. c/o sv abd pain. Pt crying in triage. Coronavirus screen: Client denies travel out of the [place] in the last 14 days. At this time, the client does not indicate any symptoms associated with coronavirus-19. Ebola Screen: No symptoms or risks identified at this time. Risk Assessment: Do you want to hurt yourself or someone else? Patient reports no desire to harm self or others. Onset of symptoms was June 26, 2020. 18:42 Method Of Arrival: Wheelchair sv 18:42 Acuity: BREANNA 3 sv 18:43 Initial Sepsis Screen: Does the patient meet any 2 criteria? No. Patient's initial sv sepsis screen is negative. Does the patient have a suspected source of infection? No. Patient's initial sepsis screen is negative. 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 - Social history:: Smoking status: Patient/guardian denies using. Screenin:15 Abuse screen: Denies threats or abuse. Denies injuries from another. Nutritional wh screening: No deficits noted. Tuberculosis screening: No symptoms or risk factors identified. Fall Risk None identified. Assessment: 19:10 General: Appears in no apparent distress. uncomfortable, Behavior is cooperative, wh crying. Pain: Complains of pain in abdomen diffusely Pain does not radiate. Quality of pain is described as aching, Pain began 1 day ago. Neuro: Level of Consciousness is awake, alert, obeys commands, Oriented to person, place, time, situation, Appropriate for age. Cardiovascular: Capillary refill < 3 seconds. Respiratory: Airway is patent Respiratory effort is even, unlabored, Respiratory pattern is regular, symmetrical. GI: Abdomen is round non-distended, Bowel sounds present X 4 quads. Abd is soft Abdomen is tender to palpation X 4 quads. Reports lower abdominal pain, upper abdominal pain, nausea. : No signs and/or symptoms were reported regarding the genitourinary system. EENT: No signs and/or symptoms were reported regarding the EENT system. Derm: Skin is intact, is healthy with good turgor, Skin is pink, warm \T\ dry. normal. Musculoskeletal: Circulation, motion, and sensation intact. 20:30 Reassessment: Patient appears in no apparent distress at this time. No changes from previously documented assessment. Patient and/or family updated on plan of care and expected duration. Pain level reassessed. Patient is alert, oriented x 3, equal unlabored respirations, skin warm/dry/pink. Vital Signs: 18:43 BP 120 / 60; Pulse 82; Resp 16; Temp 98.2; Pulse Ox 99% ; sv 19:30 BP 122 / 68; Pulse 65; Resp 18; Pulse Ox 99% on R/A; wh 20:30 BP 112 / 63; Pulse 68; Resp 20; Pulse Ox 99% on R/A; ED Course: 18:38 Patient arrived in ED. as 18:42 Arm band placed on. sv 18:43 Triage completed. sv 18:51 Shavonne Power FNP-C is [facility]. kb 18:51 Felton Salinas MD is Attending Physician. kb 19:01 Milton Sherman is Primary Nurse. wh 19:04 Initial lab(s) drawn, by hi, sent to lab. Inserted saline lock: 20 gauge in right hand, jp3 using aseptic technique. Blood collected. 19:04 Patient maintains SpO2 saturation greater than 95% on room air. jp3 19:15 Patient has correct armband on for positive identification. Bed in low position. Call light in reach. Side rails up X 1. Pulse ox on. NIBP on. 19:25 Inserted saline lock: 20 gauge in left antecubital area, using aseptic technique. wh 19:47 CT Abd/Pelvis - IV Contrast Only In Process Unspecified. EDMS 20:43 No provider procedures requiring assistance completed. IV discontinued, intact, bleeding controlled, No redness/swelling at site. Administered Medications: 19:26 Drug: morphine 4 mg {Note: RASS 0.} Route: IVP; Site: right hand; 20:32 Follow up: Response: No adverse reaction; Pain is decreased; RASS: Alert and Calm (0) 19:28 Drug: Zofran (Ondansetron) 4 mg Route: IVP; Site: right hand; 20:32 Follow up: Response: No adverse reaction; Nausea is decreased 20:37 Drug: Handley 10 mg-325 mg 1 tabs Route: PO; 20:45 Follow up: Response: No adverse reaction; RASS: Alert and Calm (0) Outcome: 20:26 Discharge ordered by MD. kb 20:43 Discharged to home via wheelchair. 20:43 Condition: stable 20:43 Discharge instructions given to patient, Instructed on discharge instructions, follow up and referral plans. wound care, POC Demonstrated understanding of instructions, follow-up care, medications, POC 20:46 Patient left the ED. Signatures: Dispatcher [employer] EDMS Shavonne Power, MARKOS-C COUNTER PROFESSIONAL-Kortney Perez RN RN sv Martinez, Amelia as Habalo, Winsy Riccardo Frederick jp3 Corrections: (The following items were deleted from the chart) 18:51 18:42 Chief complaint: Patient states: had a cholecystectomy yesterday with Dr Adams. c/o abd pain. 18:51 18:43 Pulse 82bpm; Resp 16bpm; Pulse Ox 99%; Temp 98.2F; sv sv
[2020-06-26] MEDS ORDERED: HYDROCODONE/APAP 10/325 TAB ONE (20:48)
[2020-06-28 20:42] VITALS: TEMP 98.2; O2SAT 99
[2020-06-28 20:44] VITALS: BP 112/63
== END 2020-06-26 20:46 | disposition home or self-care (01) ==
LOC: ER 18:36
DX: R10.11 Right upper quadrant pain (principal); Z90.49 Acquired absence of other specified parts of digestive tract; I10 Essential (primary) hypertension; Z88.0 Allergy status to penicillin
CPT/HCPCS: 85025; 80048; 36415; 82565; 80076; 83690; 74177; Q9967; J2405; 96374; 96375; 99284

== ENCOUNTER 2020-08-19 20:54 | Emergency (ER) | payer OTHER ==
--- OUTSIDE RECORDS SUMMARY | 2020-08-19 20:57 | XMS REPORT | Continuity of Care Document ---
:1990 Author Organization [facility] t Address [address] [place] [address] Care Team Providers Name Role Phone Gayathri Moy Attending Clinician Doctor Unassigned, Name Attending Clinician Unavailable Problems This patient has no known problems. Allergies, Adverse Reactions, Alerts This patient has no known allergies or adverse reactions. Medications This patient has no known medications. Procedures This patient has no known procedures. Encounters Start End Encounter Admission Attending Care Care Encounter Source Date/Time Date/Time Type Type Clinicians Facility Department ID 2020-08-09 2020-08-09 Office [facility] [id number] 08:55:29 09:25:29 Visit Jodie Trinh [facility] [id number] [facility] [id number] MATERNAL [id number] & CHILD [address] [place] [address] 2020-08-09 2020-08-09 Orders Doctor CHANDA [id number] 00:00:00 00:00:00 Only UnassBJ hernández [id number] [place] [facility] [id number] Results This patient has no known results.
--- OUTSIDE RECORDS SUMMARY | 2020-08-19 20:57 | XMS REPORT | Summary of Care ---
:1990 Author Organization [facility] Address [address] [place] [address] Care Team Providers Name Role Phone Jodie Godwin [facility] Primary Care Provider [phone] Reason for Visit Reason Comments NEXPLANON removal Encounter Details Date Type Department Care Team Description 08/09/[address] [facility]- Jodie Godwin Ot er general counseling and advice for contraceptive management (Primary Dx); NIECY Stafford Nexplanon removal [address] [facility] [address] [place], [place] [phone] Allergies Active Allergy Reactions Severity Noted Date Comments Penicillin Nausea and/or Vomiting 01/26/2019 documented as of this encounter (statuses as of 08/09/2020) Medications Medication Sig Dispensed Refills Start Date [...] 250 mg days 2 to sinusitis 5. levonorgestrel-ethiny Take 1 tablet by 1 Package 2 08/09/2020 Active l estradiol (SRONYX) mouth daily. 0.1-20 mg-mcg per tabletIndications: Other general counseling and advice for contraceptive management Hospital, Clinic, or Other Ordered Dose Route Frequency Start Date End Date Status Facility Administered Medication medroxyPROGESTERone 150 mg IM [id number] 11/15/2019 Active (DEPO-PROVERA) injection 150 mgIndications: Encounter for female control documented as of this encounter (statuses as of 08/09/2020) Active Problems Problem Noted Date Sinus infection 04/06/2020 Breakthrough bleeding on Nexplanon 02/23/2020 Nexplanon removal 02/09/2020 Well woman exam 02/02/2020 Other general counseling and advice for contraceptive management 02/02/2020 Morbid obesity with BMI of 45.0-49.9, adult 09/20/2019 Gestational hypertension, antepartum 09/20/2019 Tobacco use 01/26/2019 documented as of this encounter (statuses as of 08/09/2020) Resolved Problems Problem Noted Date Resolved Date [...] as of this encounter (statuses as of 08/09/2020) Immunizations Name Administration Dates Next Due TDAP [...] Assigned at Date Recorded Not on file documented as of this encounter Last Filed Vital Signs Vital Sign Reading Time Taken Comments Blood Pressure 127/80 08/09/2020 9:08 AM COSMETIC MANAGER Pulse 112 08/09/2020 9:08 AM COSMETIC MANAGER Temperature 36.3 C (97.4 F) 08/09/2020 9:08 AM COSMETIC MANAGER Respiratory Rate 16 08/09/2020 9:08 AM COSMETIC MANAGER Oxygen Saturation - - Inhaled Oxygen Concentration - - Weight 130 kg (286 lb 8 oz) 08/09/2020 9:08 AM COSMETIC MANAGER Height 164.6 cm (5' 4.8") 08/09/2020 9:08 AM COSMETIC MANAGER Body Mass Index 47.97 08/09/2020 9:08 AM COSMETIC MANAGER documented in this encounter Progress Notes Jodie Godwin WHCNP - 08/09/2020 9:15 AM CSTNexplanon REMOVAL PROCEDURE NOTE Preoperative Diagnoses: desires removal due to irregular menses The risks, benefits and alternatives were discussed. The patient voiced her understanding. She wished to proceed and an informed consent was obtained. Patient has been identified by name and and will be undergoing Nexplanon removal. Patient is right handed. Patient, procedure and site have been confirmed by the following clinicians: Debbie Godwin DNP and Comfort Reyes RN . Timeout performed by NIECY Mckeon at 0935. Procedure: The patient is placed on the exam table in a supine position. The implant was palpated onthe inner aspect of the left arm. The Nexplanon implant site is prepped with alcohol. Local area is injected subcutaneously with 2 cc of lidocaine 1% without epinephrine along the planned incision site. A small incision is made with a sterile scalpel. Straight hemostat is used to access the implant through the incision site. The implant is secured with the hemostat and carefully removed through the incision. There is minimal bleeding from the incision site. Sterile gauze and a pressure dressing isplaced over the removal site. The patient tolerated the procedure well and there were no complications. Post-procedure instructions given. Patient verbalized understanding. Findings/Assessment Nexplanon removed successfully, patient tolerated procedure well Plan Other general counseling and advice for contraceptive management (primary encounter diagnosis) Comment: as ordered Plan: levonorgestrel-ethinyl estradiol (SRONYX) 0.1-20 mg-mcg per tablet Nexplanon removal Comment: see note Plan: desire ocp All control options discussed. Patient desires ocp for contraception. Reviewed risks/benefits/alternative contraceptive methods. Patient denies self or family history of thromboembolic disease or thrombophilia, migraine headache. Has GARNETT that appeared to be clustered GARNETT that resolved with Advil. I counseled patient regarding use of oral contraceptives. There are combined oral contraceptive, which has both estrogen and progestin, and there is progestin only oral contraceptive. With typical use, 9 out 100 women get in the first year and with perfect use 0.3 out of 100 women get in the first year according to ACOG Practice Bulletin. Risks include but not limited to increase risk of thromboembolic disease, headache, weight gain, and mood lability. Alternatives reviewed include patch, ring, Depo-Provera, Nexplanon, and IUD. Advise using condoms for STDs prevention Return to clinic in 12 weeks. ETIC MANAGER documented in this encounter Plan of Treatment Health Maintenance Due Date Last Done Comments PNEUMOCOCCAL 0-64 YEARS COMBINED 1996 SERIES (1 of 1 - PPSV23) SARS-CoV-2 (COVID-19) Vaccine (1 2006 of 2) Depression Screening 11/14/2020 11/15/2019 INFLUENZA VACCINE (#1) 2021 Postponed from 03/13/2020 (Refused) PAP SMEAR 01/26/2022 01/26/2019 DTaP,Tdap,and Td Vaccines (2 - 07/21/2029 07/21/2019 Td) documented as of this encounter Results Not on filedocumented in this encounter Visit Diagnoses Diagnosis Other general counseling and advice for contraceptive management - Primary Nexplanon removal Surveillance of previously prescribed im plantable subdermal contraceptive documented in this encounter Insurance Payer Benefit Plan / Subscriber ID Effective Phone Address T [facility] [id number] 2019-Tari PAmy EDMOND Medic aid HEALTH CHOICE - HEALTH [place] [id number] 1 MANAGED MEDICAID [place], [place]ID [id number] Guarantor Name Account Type Relation to Date of Phone Bill ing Patient Address Tyra Villalta Personal/Family Self 1990 [address] [place] ([address] [place] [address] documented as of this encounter
--- OUTSIDE RECORDS SUMMARY | 2020-08-19 20:57 | XMS REPORT | Summary of Care ---
:1990 Author Organization [facility] Address [address] [place] [address] Care Team Providers Name Role Phone Rupertocandeaureliano [facility]odie Trinh [facility] Primary Care Provider [phone] Encounter Details Date Type Department Care Team Description 08/09/2020 Orders Only [facility] Doctor Unassigned, No [address] [facility] [place] [address] [address] [place] [address] Allergies Active Allergy Reactions Severity Noted Date [...] Facility Administered Medication medroxyPROGESTERone 150 mg IM [id number] 11/15/2019 Active (DEPO-PROVERA) injection 150 mgIndications: Encounter [...] Treatment Date Type Specialty Care Team Description 11/07/2020 Office [facility] [address] [place], [place] [address] [phone] Health Maintenance Due Date Last Done Comments PNEUMOCOCCAL 0-64 YEARS COMBINED 1996 SERIES (1 of 1 - PPSV23) SARS-CoV-2 (COVID-19) Vaccine (1 2006 of 2) Depression Screening 11/14/2020 11/15/2019 INFLUENZA VACCINE (#1) 2021 Postponed from 03/13/2020 (Refused) PAP SMEAR 01/26/2022 01/26/2019 DTaP,Tdap,and Td Vaccines (2 - 07/21/2029 07/21/2019 Td) documented as of this encounter Procedures Procedure Name Priority Date/Time Associated Diagnosis Comme nts DISMISSAL OF PATIENT Routine 08/09/2020 12:01 AM 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 Medic aid HEALTH CHOICE - HEALTH CHOICE nt [id number] 1 MANAGED MEDICAID [place], [place] MED[place]ID [phone] documented as of this encounter
--- OUTSIDE RECORDS SUMMARY | 2020-08-19 20:57 | XMS REPORT | Summary of Care ---
:1990 Author Organization [facility] Address [address] [place] [address] Care Team Providers Name Role Phone Jodie Godwin [facility] Primary Care Provider [phone] Reason for Visit Reason Comments NEXPLANON removal Encounter Details Date Type Department Care Team Description 08/09/2020 Office Visit [facility]- Jodie Godwin Ot er general counseling and advice for contraceptive management (Primary Dx); NIECY Stafford Nexplanon removal [address] [facility] [address] [place], [place] [phone] Allergies Active Allergy Reactions Severity Noted Date [...] Facility Administered Medication medroxyPROGESTERone 150 mg IM [id number] 11/15/2019 Active (DEPO-PROVERA) injection 150 mgIndications: Encounter [...] Comments Blood Pressure 127/80 08/09/2020 9:08 AM SPANNER OPERATOR Pulse 112 08/09/2020 9:08 AM SPANNER OPERATOR Temperature 36.3 C (97.4 F) 08/09/2020 9:08 AM SPANNER OPERATOR Respiratory Rate 16 08/09/2020 9:08 AM SPANNER OPERATOR Oxygen Saturation - - Inhaled Oxygen Concentration - - Weight 130 kg (286 lb 8 oz) 08/09/2020 9:08 AM SPANNER OPERATOR Height 164.6 cm (5' 4.8") 08/09/2020 9:08 AM SPANNER OPERATOR Body Mass Index 47.97 08/09/2020 9:08 AM SPANNER OPERATOR documented in this encounter Progress Notes Jodie [...] prevention Return to clinic in 12 weeks. NER OPERATOR documented in this encounter Plan of Treatment [...] / Subscriber ID Effective Phone Address T [facility] Group [facility] [id number] 2019-Tari PAmy EDMOND Medic aid HEALTH CHOICE - HEALTH CHOICE nt [id number] 1 MANAGED MEDICAID [place], [place] [id number] Guarantor Name Account Type Relation to Date of Phone Bill ing Patient Address Tyra Villalta Personal/Family Self 1990 [address] [place] ([address] [place] [address] documented as of this encounter
[2020-08-19 21:54] LABS: Absolute Lymphocytes (CBC) 2.2 K/uL (0.7-4.9); Basophils % 0.4 % (0-1.3); Hematocrit 39.2 % (36.0-45.0); Lymphocytes % 27.4 % (15.3-44.8); MPV 8.6 fL (7.6-11.3); RBC Red Blood Cell Count 4.86 M/uL (3.86-4.86)
[2020-08-19 22:16] LABS: BUN Blood Urea Nitrogen 21 mg/dL (7-18); Bicarbonate 27 mmol/L (21-32); Glucose Level 95 mg/dL (74-106); Potassium 3.8 mmol/L (3.5-5.1); Sodium Level 142 mmol/L (136-145)
[2020-08-19] MEDS ORDERED: NA CHLORIDE 0.9% 1,000 ML ONE (22:43)
[2020-08-19 23:18] LABS: Urine Blood 3+ (NEG); Urine Glucose NEGATIVE (NEG); Urine Protein 2+ (NEG); Urine Specific Gravity >1.030 (1.005-1.030); Urine pH 5.5 (5.0-7.0)
[2020-08-19 23:27] LABS: Troponin (Emerg Dept Use Only) < 0.02 ng/mL (0.0-0.045)
--- NOTE | 2020-08-19 23:56 | EDPHYS ---
Physician Documentation [facility] Name: Tyra Villalta Age: 29 yrs Sex: Female : 1990 Arrival Date: 08/19/2020 Time: 20:55 Bed 25 Private MD: ED Physician Selvin Shell HPI: 08/19 21:26 This 29 yrs old Female presents to ER via Ambulatory with complaints of jmm Vaginal Bleeding, General Weakness, Dizziness. 21:26 The patient presents with vaginal bleeding that is. Onset: The symptoms/episode jmm began/occurred gradually, 10 month(s) ago. Modifying factors: The symptoms are alleviated by nothing, the symptoms are aggravated by nothing. Associated signs and symptoms: Pertinent positives: vaginal bleeding. This is a 29 year old female with a history of htn that presents to the ED with complaints of vaginal bleeding beginning approx 10 months ago which has been heavy, irregular. Patient states she has passed clots. Denies fever. Patient states over the past 2 weeks she has become increasingly fatigued and nearly passed out. Patient does see an DELICATESSEN SLICER who is currently prescribing her BC. . DELICATESSEN SLICER: 08/20 00:12 lmp- on period mg2 Historical: - Allergies: 08/19 21:24 PENICILLINS (Upset stomach); mg2 - Home Meds: 21:24 control [Active]; weight control pills [Active]; mg2 - PMHx: 21:24 Hypertension; mg2 - PSHx: 21:24 Cholecystectomy; mg2 - Immunization history:: Flu vaccine status is unknown. - Social history:: Smoking status: Patient reports the use of cigarette tobacco products, smokes one-half pack cigarettes per day, Patient/guardian denies using alcohol, street drugs. ROS: 21:26 Cardiovascular: Negative for chest pain, palpitations, and edema, Respiratory: Negative jmm for shortness of breath, cough, wheezing, and pleuritic chest pain. 21:26 Constitutional: Positive for fatigue. 21:26 : Positive for vaginal bleeding. 21:26 All other systems are negative. Exam: 21:26 Constitutional: This is a well developed, well nourished patient who is awake, alert, jmm and in no acute distress. Head/Face: atraumatic. Eyes: EOMI, no conjunctival erythema appreciated ENT: Moist Mucus Membranes Neck: Trachea midline, Supple Chest/axilla: Normal chest wall appearance and motion. Cardiovascular: Regular rate and rhythm. No edema appreciated Respiratory: Normal respirations, no respiratory distress appreciated Abdomen/GI: Non distended, soft Back: Normal ROM Skin: General appearance color normal MS/ Extremity: Moves all extremities, no obvious deformities appreciated, no edema noted to the lower extremities Neuro: Awake and alert, normal gait Psych: Behavior is normal, Mood is normal, Patient is cooperative and pleasant 22:54 ECG was reviewed by the Attending Physician. [facility] Vital Signs: 21:20 BP 135 / 85; Pulse 84; Resp 18; Temp 98.4; Pulse Ox 98% on R/A; Weight 127.01 kg; mg2 Height 5 ft. 4 in. (162.56 cm); Pain 0/10; 22:25 BP 127 / 63 Supine; Pulse 86; ea 22:27 BP 112 / 59 Sitting; Pulse 86; ea 22:29 BP 113 / 79 Standing; Pulse 91; ea 08/20 00:13 BP 125 / 70; Pulse 82; Resp 18; Temp 98; Pulse Ox 100% on R/A; mg2 08/19 21:20 Body Mass Index 48.06 (127.01 kg, 162.56 cm) mg2 MDM: 08/19 21:44 Patient medically screened. [facility] 23:53 Data reviewed: vital signs, nurses notes. Counseling: I had a detailed discussion with [facility] the patient and/or guardian regarding: the historical points, exam findings, and any diagnostic results supporting the discharge/admit diagnosis, the need for outpatient follow up. ED course: Patient is alert and non toxic in appearance in the ED. No signs of resp distress appreciated. H/H wnl. I do not suspect PE, aarhythmia. Patient advised to follow up with DELICATESSEN SLICER for reevaluation. Patient is otherwise given strict return precautions. Patient understood and agree with the plan of care. . 08/19 21:26 Order name: Abo/rh Typing; Complete Time: 22:06 mg2 08/19 21:26 Order name: Basic Metabolic Panel; Complete Time: 23:28 mg2 08/19 21:26 Order name: CBC with Diff; Complete Time: 22:06 mg2 08/19 21:41 Order name: Urine --Ancillary (enter results); Complete Time: 23:20 tt3 08/19 21:41 Order name: Urine Dipstick--Ancillary (enter results); Complete Time: 23:20 tt3 08/19 21:52 Order name: Type And Screen [facility] 08/19 21:26 Order name: IV Saline Lock; Complete Time: 21:45 mg2 08/19 21:26 Order name: Labs collected and sent; Complete Time: 21:45 mg2 08/19 21:26 Order name: NPO; Complete Time: 21:46 [facility] 08/19 22:45 Order name: D-Dimer; Complete Time: 23:20 [facility] 08/19 22:50 Order name: Troponin (Emerg Dept Use Only); Complete Time: 23:28 EDMS 08/19 21:26 Order name: Urine Dipstick-Ancillary (obtain specimen); Complete Time: 21:46 [facility] 08/19 22:25 Order name: Orthostatics; Complete Time: 22:39 [facility] 08/19 22:45 Order name: EKG - Nurse/Tech; Complete Time: 23:19 jmm EC:54 Rate is 79 beats/min. Rhythm is regular. QRS [place] is Normal. MT interval is normal. QRS jmm interval is normal. QT interval is normal. No Q waves. T waves are Flattened in lead III. Reviewed by me. Administered Medications: 22:32 Drug: NS 0.9% 1000 ml Route: IV; Rate: 1 bolus; Site: left antecubital; mg2 08/20 00:13 Follow up: Response: No adverse reaction; IV Status: Completed infusion; IV Intake: mg2 1000ml Disposition: 05:15 Co-signature as Attending Physician, Selvin Shell MD. [email or web address] Disposition: 08/19/20 23:56 Discharged to Home. Impression: Dysfunctional Uterine Bleeding. - Condition is Stable. - Discharge Instructions: Dysfunctional Uterine Bleeding. - Medication Reconciliation Form, Thank You Letter, Antibiotic Education, Prescription Opioid Use, Work release form form. - Follow up: Private Physician; When: 2 - 3 days; Reason: Recheck today's complaints, Continuance of care, Re-evaluation by your physician. Signatures: Dispatcher [employer] EDMS Israel Sanchez PA PA Alphonse Dwyer RN RN [facility] Selvin Shell MD MD 7 Corrections: (The following items were deleted from the chart) 02/07 22:50 22:45 TROPONIN (EMERG DEPT USE ONLY)+C.LAB.BRZ ordered. [facility] 08/20 00:13 08/19 23:56 08/19/2020 23:56 Discharged to Home. Impression: Dysfunctional Uterine mg2 Bleeding. Condition is Stable. Forms are Medication Reconciliation Form, Thank You Letter, Antibiotic Education, Prescription Opioid Use. Follow up: Private Physician; When: 2 - 3 days; Reason: Recheck today's complaints, Continuance of care, Re-evaluation by your physician. [place]
--- NOTE | 2020-08-19 23:56 | ER ---
Nurse's Notes [facility] Name: Tyra Villalta Age: 29 yrs Sex: Female : 1990 Arrival Date: 08/19/2020 Time: 20:55 Bed 25 Private MD: Diagnosis: Dysfunctional Uterine Bleeding Presentation: 08/19 21:20 Chief complaint: Patient states: i have vaginal bleeding for 10 months, not , mg2 im on control pills. i feel tired and weak for few weeks. Coronavirus screen: Client denies travel out of the [place] in the last 14 days. At this time, the client does not indicate any symptoms associated with coronavirus-19. Ebola Screen: No symptoms or risks identified at this time. Initial Sepsis Screen: Does the patient meet any 2 criteria? No. Patient's initial sepsis screen is negative. Does the patient have a suspected source of infection? No. Patient's initial sepsis screen is negative. Risk Assessment: Do you want to hurt yourself or someone else? Patient reports no desire to harm self or others. Onset of symptoms was 2020. 21:20 Method Of Arrival: Ambulatory mg2 21:20 Acuity: BREANNA 3 mg2 Triage Assessment: 21:24 General: Appears in no apparent distress. comfortable, Behavior is calm, cooperative. mg2 Pain: Denies pain. EENT: No deficits noted. Neuro: Level of Consciousness is awake, alert, obeys commands, Oriented to person, place, time, situation. Neuro: Reports weakness. Cardiovascular: Capillary refill < 3 seconds Patient's skin is warm and dry. Respiratory: Airway is patent Respiratory effort is even, unlabored, Respiratory pattern is regular, symmetrical. GI: No signs and/or symptoms were reported involving the gastrointestinal system. : Reports vaginal bleeding that is with clots, heavy flow. Derm: Skin is intact, is healthy with good turgor, Skin is normal. Musculoskeletal: Circulation, motion, and sensation intact. Capillary refill < 3 seconds. 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 - Social history:: Smoking status: Patient reports the use of cigarette tobacco products, smokes one-half pack cigarettes per day, Patient/guardian denies using alcohol, street drugs. Screenin:25 Abuse screen: Denies threats or abuse. Denies injuries from another. Nutritional mg2 screening: No deficits noted. Tuberculosis screening: No symptoms or risk factors identified. 08/20 00:12 Fall Risk IV access (20 points). mg2 Assessment: 08/19 21:25 General: see triage assessment. mg2 23:29 Reassessment: Patient and/or family updated on plan of care and expected duration. Pain ea level reassessed. Patient is alert, oriented x 3, equal unlabored respirations, skin warm/dry/pink. provider at bedside updating pt on plan of care. Vital Signs: 21:20 BP 135 / 85; Pulse 84; Resp 18; Temp 98.4; Pulse Ox 98% on R/A; Weight 127.01 kg; mg2 Height 5 ft. 4 in. (162.56 cm); Pain 0/10; 22:25 BP 127 / 63 Supine; Pulse 86; ea 22:27 BP 112 / 59 Sitting; Pulse 86; ea 22:29 BP 113 / 79 Standing; Pulse 91; ea 08/20 00:13 BP 125 / 70; Pulse 82; Resp 18; Temp 98; Pulse Ox 100% on R/A; mg2 08/19 21:20 Body Mass Index 48.06 (127.01 kg, 162.56 cm) mg2 ED Course: 08/19 20:55 Patient arrived in ED. am4 21:15 Israel Sanchez PA is PHCP. [facility] 21:15 Selvin Shell MD is Attending Physician. [facility] 21:23 Triage completed. mg2 21:24 Arm band placed on. mg2 21:46 Patient has correct armband on for positive identification. mg2 21:46 Inserted saline lock: 20 gauge in left antecubital area, using aseptic technique. Blood mg2 collected. 21:56 Irene Potter, AGAPITO is Primary Nurse. ea 08/20 00:11 No provider procedures requiring assistance completed. IV discontinued, intact, mg2 bleeding controlled, No redness/swelling at site. Pressure dressing applied. Administered Medications: 08/19 22:32 Drug: NS 0.9% 1000 ml Route: IV; Rate: 1 bolus; Site: left antecubital; mg2 08/20 00:13 Follow up: Response: No adverse reaction; IV Status: Completed infusion; IV Intake: mg2 1000ml Intake: 00:13 IV: 1000ml; Total: 1000ml. mg2 Outcome: 08/19 23:56 Discharge ordered by MD. wood 08/20 00:12 Discharged to home ambulatory. mg2 Condition: stable Discharge instructions given to patient, Instructed on discharge instructions, follow up and referral plans. Demonstrated understanding of instructions, follow-up care. 00:13 Patient left the ED. mg2 Signatures: Israel Sanchez PA PA jmm Antunez, Elena, RN RN ea Gardose, Michele, RN RN mg2 Martinez, Ashley am4 Corrections: (The following items were deleted from the chart) 08/19 22:37 22:25 BP 127 / 63; Pulse 86bpm; ea ea 22:37 22:27 BP 112 / 59; Pulse 86bpm; ea christopher 22:37 22:29 BP 113 / 79; Pulse 91bpm; ea ea
== END 2020-08-20 00:13 | disposition home or self-care (01) ==
LOC: ER 20:54
DX: N93.8 Other specified abnormal uterine and vaginal bleeding (principal); F17.210 Nicotine dependence, cigarettes, uncomplicated; I10 Essential (primary) hypertension
CPT/HCPCS: 93005; 85025; 80048; 36415; 86900; 81025; 86901; 85379; 81003; 84484; J7030; 96360; 96361; 99284

== ENCOUNTER 2021-06-29 17:35 | Emergency (ER) | payer OTHER ==
[2021-06-29] MEDS ORDERED: ONDANSETRON 4 MG/2 ML VIAL ONE (20:33)
[2021-06-29] MEDS ORDERED: NA CHLORIDE 0.9% 1,000 ML ONE ×2 (20:34→22:15)
[2021-06-29] MEDS ORDERED: FAMOTIDINE 20 MG/2 ML VIAL IV ONE (20:34)
[2021-06-29 20:46] LABS: Absolute Lymphocytes (CBC) 2.4 K/uL (0.7-4.9); Basophils % 0.4 % (0-1.3); Hematocrit 42.3 % (36.0-45.0); MPV 9.2 fL (7.6-11.3); RBC Red Blood Cell Count 5.32 M/uL (3.86-4.86)
[2021-06-29 20:53] LABS: Albumin 3.8 g/dL (3.4-5.0); Bilirubin Direct 0.3 mg/dL (0-0.2); Bilirubin Total 0.9 mg/dL (0.2-1.0); Potassium 3.5 mmol/L (3.5-5.1); Protein, Total 7.7 g/dL (6.4-8.2)
[2021-06-29 21:23] LABS: Urine Blood Negative (Negative); Urine Glucose Negative (Negative); Urine Protein 1+ (Negative); Urine Specific Gravity >=1.030 (1.005-1.030)
--- NOTE | 2021-06-29 22:03 | RAD REPORT ---
EXAM DESCRIPTION: CTAbdomen Pelvis W Contrast - 06/29/2021 9:46 pm CLINICAL HISTORY: Abdominal pain. s/p gastric bypass;Nausea / vomiting COMPARISON: Abdomen Pelvis W Contrast dated 06/26/2020; Abdomen Pelvis W Contrast dated 0; Abdomen Pelvis W Contrast dated 10/27/2019; Chest Single View dated 01/25/2020 TECHNIQUE: Biphasic CT imaging of the abdomen and pelvis was performed with 100 ml non-ionic IV cont rast. All CT scans are performed using dose optimization technique as appropriate and may include automated exposure control or mA/KV adjustment according to patient size. FINDINGS: The lung bases are clear.Postsurgical changes are seen in the gastric bypass. Cholecystect jose clips. The liver, spleen, pancreas, adrenal glands and kidneys are within normal limits. No bowel obstruction, free air, free fluid or abscess. The appendix is normal. No evidence of signi ficant lymphadenopathy. No suspicious bony findings. IUD is present in the pelvis. IMPRESSION: No acute intra-abdominal or pelvic finding.
[2021-06-29] MEDS ORDERED: MULTIVITAMINS 10 ML VIAL (INJ) IV ONE (22:15)
[2021-06-29] MEDS ORDERED: THIAMINE 200 MG/2 ML INJ ONE (22:15)
[2021-06-29] MEDS ORDERED: FOLIC ACID 5 MG/ML VIAL ONE (22:16)
--- NOTE | 2021-06-30 00:05 | EDPHYS ---
Physician Documentation [facility] Name: Tyra Ribera Age: 30 yrs Sex: Female : 1990 Arrival Date: 06/29/2021 Time: 17:39 Bed 19 Private MD: ED Physician Selvin Shell HPI: 06/29 20:12 This 30 yrs old Female presents to ER via Ambulatory with complaints of Nausea/Vomiting.mh7 20:12 The patient presents to the emergency department with nausea, that is moderate, mh7 vomiting, that is intermittent, described as clear fluid. Onset: The symptoms/episode began/occurred 4 day(s) ago. Possible causes: unknown. The symptoms are aggravated by food , The symptoms are alleviated by nothing. Associated signs and symptoms: Pertinent negatives: abdominal pain, anorexia, belching, constipation, diarrhea, dysuria, fever, flatulence, GI bleeding, hematuria, vaginal discharge. Severity of symptoms: At their worst the symptoms were moderate 3 day(s) ago, in the emergency department the symptoms are unchanged despite home interventions. Patient reports having gastric bypass surgery 05/28/2021 at [facility]. She states that she has been doing fine since the surgery until 4 days ago started having nausea and vomiting. Her doctor prescribed Phenergan suppositories but she has not had much relief from that medication. She denies any fever, cough, abdominal pain, chest pain, diarrhea, dysuria.. 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 - Social history:: Smoking status: Patient denies any tobacco usage or history of. ROS: 20:12 Constitutional: Negative for fever, chills, and weight loss, Eyes: Negative for injury, mh7 pain, redness, and discharge, ENT: Negative for injury, pain, and discharge, Neck: Negative for injury, pain, and swelling, Cardiovascular: Negative for chest pain, palpitations, and edema, Respiratory: Negative for shortness of breath, cough, wheezing, and pleuritic chest pain, Back: Negative for injury and pain, : Negative for injury, bleeding, discharge, and swelling, MS/Extremity: Negative for injury and deformity, Skin: Negative for injury, rash, and discoloration, Neuro: Negative for headache, weakness, numbness, tingling, and seizure, Psych: Negative for depression, anxiety, suicide ideation, homicidal ideation, and hallucinations, Allergy/Immunology: Negative for hives, rash, and allergies, Endocrine: Negative for neck swelling, polydipsia, polyuria, polyphagia, and marked weight changes, Hematologic/Lymphatic: Negative for swollen nodes, abnormal bleeding, and unusual bruising. Exam: 20:12 Constitutional: This is a well developed, well nourished patient who is awake, alert, mh7 and in no acute distress. Head/Face: Normocephalic, atraumatic. Eyes: Pupils equal round and reactive to light, extra-ocular motions intact. Lids and lashes normal. Conjunctiva and sclera are non-icteric and not injected. Cornea within normal limits. Periorbital areas with no swelling, redness, or edema. Neck: Trachea midline, no thyromegaly or masses palpated, and no cervical lymphadenopathy. Supple, full range of motion without nuchal rigidity, or vertebral point tenderness. No Meningismus. Chest/axilla: Normal chest wall appearance and motion. Nontender with no deformity. No lesions are appreciated. Cardiovascular: Regular rate and rhythm with a normal S1 and S2. No gallops, murmurs, or rubs. Normal PMI, no JVD. No pulse deficits. Respiratory: Lungs have equal breath sounds bilaterally, clear to auscultation and percussion. No rales, rhonchi or wheezes noted. No increased work of breathing, no retractions or nasal flaring. Abdomen/GI: Soft, non-tender, with normal bowel sounds. No distension or tympany. No guarding or rebound. No evidence of tenderness throughout. Back: No spinal tenderness. No costovertebral tenderness. Full range of motion. Skin: Warm, dry with normal turgor. Normal color with no rashes, no lesions, and no evidence of cellulitis. MS/ Extremity: Pulses equal, no cyanosis. Neurovascular intact. Full, normal range of motion. Neuro: Awake and alert, GCS 15, oriented to person, place, time, and situation. Cranial nerves II-XII grossly intact. Motor strength 5/5 in all extremities. Sensory grossly intact. Cerebellar exam normal. Normal gait. Psych: Awake, alert, with orientation to person, place and time. Behavior, mood, and affect are within normal limits. Vital Signs: 17:48 BP 119 / 84; Pulse 62; Resp 16; Temp 98.1(TE); Pulse Ox 100% on R/A; Weight 123.83 kg; ss Height 5 ft. 4 in. (162.56 cm); Pain 0/10; 20:03 BP 116 / 74; Pulse 84; Resp 16; Pulse Ox 98% ; mk 21:00 BP 118 / 57; Pulse 18; Resp 78; Pulse Ox 100% on R/A; mk 22:46 BP 105 / 74; Pulse 98; Resp 18; Pulse Ox 98% ; mk 17:48 Body Mass Index 46.86 (123.83 kg, 162.56 cm) [place] Coma Score: 20:03 Eye Response: spontaneous(4). Verbal Response: oriented(5). Motor Response: obeys mk commands(6). Total: 15. 21:00 Eye Response: spontaneous(4). Verbal Response: oriented(5). Motor Response: obeys mk commands(6). Total: 15. 22:46 Eye Response: spontaneous(4). Verbal Response: oriented(5). Motor Response: obeys mk commands(6). Total: 15. MDM: 06/30 00:02 Differential diagnosis: gastritis, pancreatitis, diverticulitis, viral gastroenteritis, mh7 gastroenteritis. Data reviewed: vital signs, nurses notes, lab test result(s), CBC, electrolytes, urinalysis, UPT: negative radiologic studies, CT scan. Data interpreted: Pulse oximetry: on room air is 98 %. Interpretation: normal. Counseling: I had a detailed discussion with the patient and/or guardian regarding: the historical points, exam findings, and any diagnostic results supporting the discharge/admit diagnosis, lab results, radiology results, the need for outpatient follow up, to return to the emergency department if symptoms worsen or persist or if there are any questions or concerns that arise at home. Response to treatment: the patient's symptoms have resolved after treatment, the patient's blood pressure is in an acceptable range, mental status has returned to baseline, the patient no longer shows bradycardia, the patient is not short of breath, the patient is not tachycardic, the patient's pain is gone, the patient's temperature has normalized, the patient is now symptom free, patient is well hydrated. Tolerating p.o. intake without difficulty. 00:04 Patient medically screened. [facility] 06/29 20:07 Order name: Basic Metabolic Panel; Complete Time: 20:54 [facility] 06/29 20:07 Order name: CBC with Diff; Complete Time: 20:54 [facility] 06/29 20:07 Order name: Hepatic Function; Complete Time: 20:54 [facility] 06/29 20:07 Order name: Lipase; Complete Time: 20:54 [facility] 06/29 21:22 Order name: Urine Dipstick-Ancillary; Complete Time: 21:41 [facility] 06/29 21:23 Order name: Urine --Ancillary (enter results) 9 06/29 20:07 Order name: IV Saline Lock; Complete Time: 20:30 [facility] 06/29 20:07 Order name: Labs collected and sent; Complete Time: 20:30 [facility] 06/29 20:12 Order name: CT Abd/Pelvis - IV Contrast Only; Complete Time: 22:09 [facility] 06/29 21:24 Order name: Urine --Ancillary; Complete Time: 21:41 [facility] 06/29 20:07 Order name: Urine Dipstick-Ancillary (obtain specimen); Complete Time: 21:23 [facility] 06/29 20:07 Order name: Urine Test (obtain specimen); Complete Time: 21:23 [facility] 06/29 23:02 Order name: PO challenge [facility] Administered Medications: 06/29 20:40 Drug: NS 0.9% 1000 ml Route: IV; Rate: 1000 ml; Site: right forearm; as6 20:40 Drug: Zofran (Ondansetron) 4 mg Route: IVP; Site: right forearm; as6 20:40 Drug: Pepcid (famotidine) 20 mg Route: IVP; Site: right forearm; as6 22:21 Drug: Banana Bag - (NS 0.9% 1000 ml, foLIC Acid 1 mg, Thiamine 100 mg, Multivitamin 1 as6 amp) Route: IV; Rate: calculated rate; Site: right antecubital; Disposition Summary: 06/30/21 00:04 Discharge Ordered Location: Home [facility] Problem: new [facility] Symptoms: have improved [facility] Condition: Stable [facility] Diagnosis - Nausea with vomiting, unspecified [facility] - Dehydration [facility] Followup: [facility] - With: Private Physician - When: 1 - 2 days - Reason: Worsening of condition, Recheck today's complaints, Continuance of care, Re-evaluation by your physician Discharge Instructions: - Discharge Summary Sheet [facility] - Dehydration, Adult [facility] - Nausea and Vomiting, Adult, [id number] [facility] Forms: - Medication Reconciliation Form [facility] - Thank You Letter [facility] - Antibiotic Education [facility] - Prescription Opioid Use [facility] Prescriptions: - ondansetron 4 mg Oral tablet,disintegrating - place 1 tablet by TRANSLINGUAL route every 8 hours As needed; 15 tablet; 7 Refills: 0, Product Selection Permitted - Pepcid 20 mg Oral Tablet - take 1 tablet by ORAL route every 12 hours for 5 days; 10 tablet; Refills: 0, 7 Product Selection Permitted Signatures: Dispatcher [employer] Alisha Jama RN RN ss Selvin Shell MD MD 7 Ariel Quinones RN RN as6 Kitty Armstrong RN RN mk Corrections: (The following items were deleted from the chart) 17:51 17:51 PMHx: Hypertension; [facility]
--- NOTE | 2021-06-30 00:05 | ER ---
Nurse's Notes [facility] Name: Tyra Ribera Age: 30 yrs Sex: Female : 1990 Arrival Date: 06/29/2021 Time: 17:39 Bed 19 Private MD: Diagnosis: Nausea with vomiting, unspecified;Dehydration Presentation: 06/29 17:48 Chief complaint: Patient states: N/V that began 4 days ago. HX of gastric bypass on ss 05/28. Pt states that her doctor believed that she may have dumping syndrome and gave her a prescription for Phenergan suppositories that helped her rest, but did not help with the nausea/ vomiting. Coronavirus screen: Client denies travel out of the [place] in the last 14 days. Ebola Screen: Patient denies exposure to infectious person. Patient denies travel to an Ebola-affected area in the 21 days before illness onset. Initial Sepsis Screen: Does the patient meet any 2 criteria? No. Patient's initial sepsis screen is negative. Does the patient have a suspected source of infection? No. Patient's initial sepsis screen is negative. Risk Assessment: Do you want to hurt yourself or someone else? Patient reports no desire to harm self or others. Onset of symptoms was June 25, 2021. 17:48 Method Of Arrival: Ambulatory 17:48 Acuity: BREANNA 3 ss Triage Assessment: 06/30 00:22 General: Appears in no apparent distress. Behavior is calm, cooperative. 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 - Social history:: Smoking status: Patient denies any tobacco usage or history of. Screenin/19 00:22 Abuse screen: Denies threats or abuse. Nutritional screening: No deficits noted. Tuberculosis screening: No symptoms or risk factors identified. Fall Risk None identified. Assessment: 06/29 19:54 Pain: Denies pain. Neuro: Level of Consciousness is awake, alert, obeys commands, mk Oriented to person, place, time, situation, High Court Justice are equal bilaterally Gait is steady, Speech is normal, Pupils are PERRLA, Cardiovascular: Heart tones S1 S2 Capillary refill < 3 seconds fingers toes Patient's skin is warm and dry. Pulses are 2+ in right radial artery, right dorsalis pedis artery, left radial artery and left dorsalis pedis artery Edema is absent. Rhythm is. Respiratory: Airway is patent Respiratory effort is even, unlabored, Respiratory pattern is regular, symmetrical, Breath sounds are clear bilaterally. GI: Bowel sounds present X 4 quads. Derm: Skin is intact. Musculoskeletal: No deficits noted. Musculoskeletal: No deficits noted. Capillary refill < 3 seconds, fingers. toes. 19:54 GI: Abd is soft and non tender Abdomen is tender to palpation Mass noted in left lower mk quadrant Reports constipation, intolerance of food, nausea, since 3-4 days Parent/caregiver reports the patient having pt was given phenergan. 19:54 Cardiovascular: 19:54 Pain: Complains of pain in abdomen Quality of pain is described as sharp, Pain began 2-3 days ago. Is continuous. 20:03 Cardiovascular:. 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 21:00 Reassessment: Patient appears in no apparent distress at this time. Patient is alert, mk oriented x 3, equal unlabored respirations, skin warm/dry/pink. 21:00 Reassessment: Patient and/or family updated on plan of care and expected duration. Pain level reassessed. Patient states feeling better. 22:00 Reassessment: Patient appears in no apparent distress at this time. Patient is alert, mk oriented x 3, equal unlabored respirations, skin warm/dry/pink. Patient states feeling better. 23:00 Reassessment: Patient appears in no apparent distress at this time. Patient is alert, mk oriented x 3, equal unlabored respirations, skin warm/dry/pink. Patient states feeling better. 23:42 Respiratory: 06/30 00:05 Reassessment: Patient appears in no apparent distress at this time. No changes from previously documented assessment. Patient is alert, oriented x 3, equal unlabored respirations, skin warm/dry/pink. tolerated PO challenge. Pain: Denies pain. Vital Signs: 18 17:48 BP 119 / 84; Pulse 62; Resp 16; Temp 98.1(TE); Pulse Ox 100% on R/A; Weight 123.83 kg; ss Height 5 ft. 4 in. (162.56 cm); Pain 0/10; 20:03 BP 116 / 74; Pulse 84; Resp 16; Pulse Ox 98% ; mk 21:00 BP 118 / 57; Pulse 18; Resp 78; Pulse Ox 100% on R/A; mk 22:46 BP 105 / 74; Pulse 98; Resp 18; Pulse Ox 98% ; mk 17:48 Body Mass Index 46.86 (123.83 kg, 162.56 cm) ss [place] Coma Score: 20:03 Eye Response: spontaneous(4). Verbal Response: oriented(5). Motor Response: obeys mk commands(6). Total: 15. 21:00 Eye Response: spontaneous(4). Verbal Response: oriented(5). Motor Response: obeys mk commands(6). Total: 15. 22:46 Eye Response: spontaneous(4). Verbal Response: oriented(5). Motor Response: obeys mk commands(6). Total: 15. ED Course: 17:39 Patient arrived in ED. ds1 17:51 Triage completed. ss 17:51 Arm band placed on right wrist. ss 19:35 Patient has correct armband on for positive identification. Allergy band placed. Fall mk risk band placed. Placed in gown. Bed in low position. Side rails up X 1. 19:43 Selvin Shell MD is Attending Physician. [facility] 19:45 Kitty Armstrong, AGAPITO is Primary Nurse. mk 20:15 Inserted saline lock: 20 gauge in right antecubital area, using aseptic technique. mk 20:30 Basic Metabolic Panel Sent. mk 20:30 CBC with Diff Sent. mk 20:30 Hepatic Function Sent. mk 20:30 Lipase Sent. mk 21:46 CT Abd/Pelvis - IV Contrast Only In Process Unspecified. EDMS 23:07 Urine --Ancillary (enter results) Sent. mk 06/30 00:22 No provider procedures requiring assistance completed. mk 00:22 IV discontinued, intact, bleeding controlled, No redness/swelling at site. mk Administered Medications: 06/29 20:40 Drug: NS 0.9% 1000 ml Route: IV; Rate: 1000 ml; Site: right forearm; as6 20:40 Drug: Zofran (Ondansetron) 4 mg Route: IVP; Site: right forearm; as6 20:40 Drug: Pepcid (famotidine) 20 mg Route: IVP; Site: right forearm; as6 22:21 Drug: Banana Bag - (NS 0.9% 1000 ml, foLIC Acid 1 mg, Thiamine 100 mg, Multivitamin 1 as6 amp) Route: IV; Rate: calculated rate; Site: right antecubital; Outcome: 06/30 00:04 Discharge ordered by . melissa 00:22 Discharged to home mk 00:22 Condition: stable 00:22 Discharge instructions given to patient. 00:27 Patient left the ED. mk Signatures: Dispatcher [employer] Krissy Paulino ds1 Alisha Aguirre RN RN ss Holmes, Maurice, MD MD 7 Ariel Quinones RN RN as6 Kitty Armstrong RN RN mk Corrections: (The following items were deleted from the chart) 06/29 17:51 17:51 PMHx: Hypertension; [facility] 20:07 19:54 Neuro: Level of Consciousness is awake, alert, Oriented to person, place, mk situation, pt unsure as to year or her when questioned by RN, states this is not her baseline. High Court Justice are equal bilaterally Reports mk 20:07 19:54 Cardiovascular: Reports Heart tones S1 S2 Capillary refill < 3 seconds fingers mk toes Patient's skin is warm and dry. Pulses are 2+ in right radial artery, right dorsalis pedis artery, left radial artery and left dorsalis pedis artery Edema is absent. 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 No mk changes from previously documented assessment. Patient is alert, oriented x 3, equal unlabored respirations, skin warm/dry/pink. mk 06/30 00:26 06/29 22:00 Reassessment: Patient appears in no apparent distress at this time. No mk changes from previously documented assessment. Patient is alert, oriented x 3, equal unlabored respirations, skin warm/dry/pink. mk
[2021-06-30 00:35] VITALS: TEMP 98.1
[2021-06-30 00:39] VITALS: BP 105/74; O2SAT 98
== END 2021-06-30 00:27 | disposition home or self-care (01) ==
LOC: ER 17:35
DX: E86.0 Dehydration (principal); Z91.040 Latex allergy status; Z88.0 Allergy status to penicillin; Z91.048 Other nonmedicinal substance allergy status
CPT/HCPCS: 85025; 80048; 36415; 81025; 80076; 81003; 83690; 74177; 99284; Q9967; J3411; J7030 ×2; J2405

== ENCOUNTER 2021-08-03 19:47 | Emergency (ER) | payer OTHER ==
--- OUTSIDE RECORDS SUMMARY | 2021-08-03 19:57 | XMS REPORT | Continuity of Care Document ---
:1990 Author Organization [facility] t Address [address] [place] [address] Care Team Providers Name Role Phone Gayathri GOWDIN Primary Care Physician Unavailable Amy Yeboah Attending Clinician Unavailable Benny Montemayor Attending Clinician Unavailable Gayathri GODWIN Attending Clinician Unavailable Tato PEMBERTON C Attending Clinician Doctor Unassigned, Name Attending Clinician Unavailable Visit, Nurse Attending Clinician Unavailable Rachel Maki MD Attending Clinician Ultrasound Attending Clinician Unavailable Sheng BENOIT F Attending Clinician JAY Attending Clinician Unavailable [facility] Attending Clinician Unavailable Rodri BENOIT M Attending Clinician Risk Attending Clinician Unavailable Nicci [facility] Attending Clinician Demetra Hinds Attending Clinician Eric Szymanski Attending Clinician Amy Yeboah Admitting Clinician Unavailable JAY Admitting Clinician Unavailable Rachel Maki MD Admitting Clinician Payers Payer Name Policy Type Policy Number Effective Date Expiration Date [facility] [id number] 2019 [facility] MEDICAID 00:00:00 Problems Condition Condition Condition Status Onset Resolution Last Treating Co mments Source Name Details Category Date Date Treatment Clinician Date Sinus Sinus Disease Active 2020-0 Univers infection infection 9-25 ity of 00:00: [place] 00 Medical Branch Breakthrou Breakthrou Disease Active 2020-0 U nivers gh gh 8-13 ity of bleeding bleeding 00:00: [place] on on 00 Medical Nexplanon Nexplanon Bran ch Nexplanon Nexplanon Disease Active 2020-0 Uni vers insertion insertion 7-30 ity of 00:00: [place] 00 Medical Branch Nexplanon Nexplanon Disease Active 2020-0 Uni vers removal removal 7-30 ity of 00:00: [place] 00 Medical Branch Other Other Disease Active 2020-0 Univers general general 7-23 it[place] of counseling [place] and advice and advice 00 Me dical for for Branch contracept contracept richar richar management management Disease Active 2020-0 U nivers care and care and 4 ity of examinatio examinatio 00:[place] of n of 00 Medical lactating lactating Jhonny glasgow mother mother Morbid Morbid Disease Active 2020-0 Univers obesity obesity 3-10 ity of with body with body 00:00: [facility] s mass index mass index 00 Me dical of 50 or of 50 or Branch higher higher 37 weeks 37 weeks Disease Active 2020-0 Unive rs gestation gestation 3-10 ity of of of 00:00: [place] 00 [facility] Gestationa Gestationa Disease Active 2020-0 U nivers l l 3-10 ity of hypertensi hypertensi 00:[place], on, 00 Medical antepartum antepartum Br anch Morbid Morbid Disease Active 2020-0 Univers obesity obesity 3-10 ity of with BMI with BMI 00:00: [place] of of 00 Medical 45.0-49.9, 45.0-49.9, Br anch adult adult URI (upper URI (upper Disease Active 2019- U nivers respirator respirator 2-30 it y of y y 00:00: [place] infection) infection) 00 Me dical Branch Generalize Generalize Disease Active 2019- U nivers d body d body 2-30 ity of aches aches 00:00: [place] 00 Medical Branch Influenza Influenza Disease Active 2019- Uni vers B B 2-30 ity of 00:00: [place] 00 Medical Branch Screening, Screening, Disease Active 2019- U nivers , , 0-07 it y of isoimmuniz isoimmuniz 00:[place] at[place]ion 00 Medical Branch BMI BMI Disease Active 2018-07 Univers 50.0-59.9, 50.0-59.9, 0-07 it y of adult adult 00:00: [place] 00 Medical Branch Supervisio Supervisio Disease Active 2019 U nivers n of n of 7-17 ity of high-risk high-risk 00:[place] [facility] Multiparit Multiparit Disease Active U nivers y y 7-17 ity of 00:00: [place] 00 Medical Branch History of History of Disease Active Overview : Univers 7-17 X2 ity of section section 00:00: pending [place] 00 [facility] Medical Branch Obesity in Obesity in Disease Active U nivers 7-17 ity of 00:00: [place] [facility] Tobacco Tobacco Disease Active Univers use during use during 7-17 [place] [facility] Tobacco Tobacco Disease Active Univers use use 7-17 ity of 00:00: [place] 00 [facility] Tobacco Tobacco Disease Active 2019- Univers use use 7-17 ity of 00:00: [place] [facility] Allergies, Adverse Reactions, Alerts Allergy Allergy Status Severity Reaction(s) Onset Inactive Treating Comm ents Source Name Type Date Date Clinician Penicill DA Active U 2020-0 [facility] ins 8-11 Clear 00:00: [place] 00 [facility] latex DA Active U 2020-0 [facility] 8-11 Clear 00:00: [place] 00 [facility] Penicill DA Active U VOMITING 2020-0 [facility] ins 8-11 [place] 00:00: d 00 [facility] latex DA Active U SWELLING 2020-0 [facility] 8-11 [place] 00:00: d 00 [facility] Penicill Propensi Active Nausea 2019-0 Univer s in ty to and/or 7-17 ity of adverse Vomiting 00:00: [place] reaction [facility] [place] Penicill Propensi Active Nausea 2018-0 Univer s in ty to and/or 7-17 ity of adverse Vomiting 00:00: [place] reaction 00 [facility] PENICILL DRUG Active N/V 2019- Univers IN INGREDI 7-17 ity of 00:00: [place] 00 Medical Branch Social History Social Habit Start Date Stop Date Quantity Comments Source ASSERTION 2019-01-13 University of 00:00:00 [facility] History of tobacco 2007-01-26 Cigarette Smoker University of use 00:00:00 [facility] History [facility] o f Alcohol Binge [facility] Sex Assigned At [facility] y of [facility] Exposure to Not sure University of SARS-CoV-2 (event) [facility] History [facility] o f Alcohol Std Drinks [facility] Tobacco use and 2020-08-09 2020-08-09 Never used Universit y of exposure 00:00:00 00:00:00 [facility] Cigarettes smoked 2020-08-09 2020-08-09 Univers ity of current (pack per 00:00:00 00:00:00 [facility]) - Reported [place] Alcohol intake 2020-08-09 2020-08-09 Ex-drinker [facility] 00:00:00 00:00:00 (finding) [facility] Tobacco Comment 2020-02-02 2020-02-02 1 pack a day Univers ity of 00:00:00 00:00:00 [facility] History SDOH 2019-01-26 2019-01-26 1 University o f Alcohol Frequency 00:00:00 00:00:00 [facility] Smoking Status Start Date Stop Date Source Current every day smoker 2020-08-09 00:00:00 Uni versity of [facility] Medications Ordered Filled Start Stop Current Ordering Indication Dosage Frequency Signature Comments Components Source Medication Medication Date Date Medication? Clinician (SIG) Name Name levonorgest Yes [id number] 1{tbl} Take 1 Univers rel-ethinyl 1-28 tablet by ity of estradiol 00:00: mouth [place] (SRONYX) 00 daily. Medical 0.1-20 Branch mg-mcg per tablet levonorgest Yes [id number] 1{tbl} Take 1 Univers rel-ethinyl 1-28 tablet by ity of estradiol 00:00: mouth [place] (SRONYX) 00 daily. Medical 0.1-20 Branch mg-mcg per tablet levonorgest Yes [id number] 1{tbl} Take 1 Univers rel-ethinyl 1-28 tablet by ity of estradiol 00:00: mouth [place] (SRONYX) 00 daily. Medical 0.1-20 Branch mg-mcg per tablet levonorgest 2020-0 Yes [id number] 1{tbl} Take 1 Univers rel-ethinyl 1-28 tablet by ity of estradiol 00:00: mouth [place] (SRONYX) 00 daily. Medical 0.1-20 Branch mg-mcg per tablet azithromyci 2020-0 Yes [id number] 250mg Take 1 Univers n 9-25 tablet by ity of (ZITHROMAX 00:00: mouth [place] Z-THA) 250 00 daily. Medical mg tablet Take 500 Branch mg day 1, then 250 mg days 2 to 5. azithromyci 2020-0 Yes [id number] 250mg Take 1 Univers n 9-25 tablet by ity of (ZITHROMAX 00:00: mouth [place] Z-THA) 250 00 daily. Medical mg tablet Take 500 Branch mg day 1, then 250 mg days 2 to 5. azithromyci 2020-0 Yes [id number] 250mg Take 1 Univers n 9-25 tablet by ity of (ZITHROMAX 00:00: mouth [place] Z-THA) 250 00 daily. Medical mg tablet Take 500 Branch mg day 1, then 250 mg days 2 to 5. azithromyci 2020-0 Yes [id number] 250mg Take 1 Univers n 9-25 tablet by ity of (ZITHROMAX 00:00: mouth [place] Z-THA) 250 00 daily. Medical mg tablet Take 500 Branch mg day 1, then 250 mg days 2 to 5. azithromyci 2020-0 Yes [id number] 250mg Take 1 Univers n 9-25 tablet by ity of (ZITHROMAX 00:00: mouth [place] Z-THA) 250 00 daily. Medical mg tablet Take 500 Branch mg day 1, then 250 mg days 2 to 5. azithromyci 2020-0 Yes [id number] 250mg Take 1 Univers n 9-25 tablet by ity of (ZITHROMAX 00:00: mouth [place] Z-THA) 250 00 daily. Medical mg tablet Take 500 Branch mg day 1, then 250 mg days 2 to 5. azithromyci 2020-0 Yes [id number] 250mg Take 1 Univers n 9-25 tablet by ity of (ZITHROMAX 00:00: mouth [place] Z-THA) 250 00 daily. Medical mg tablet Take 500 Branch mg day 1, then 250 mg days 2 to 5. estradiol 2 2019-2019- No [id number] 2mg Take 1 Univers mg tablet 02-22 tablet by ity of 00:00: 04:59 mouth [place] 00 :00 daily for Medical 21 days. Branch estradiol 2 2019-2019- No [id number] 2mg Take 1 Univers mg tablet 02-22 tablet by ity of 00:00: 04:59 mouth [place] 00 :00 daily for Medical 21 days. Branch etonogestre 2019- No 68mg Unive rs l 02-08 ity of (NEXPLANON) 15:30: 14:28 [place] implant 00 :00 Medical mg Branch etonogestre No 68mg 68 mg, Uni vers l 02-08 Subdermal, ity of (NEXPLANON) 15:30: 14:28 ONCE NOW, [place] implant 00 :00 1 dose, Medica l mg [place] 02/09/20 at 1030, Routine
Use approved by: INFORMATION SERVICES VICE PRESIDENT etonogestre 2019- No 68mg Unive rs l 02-08 ity of (NEXPLANON) 15:30: 14:28 [place] implant 68 00 :00 Medical mg Branch etonogestre 2019- No 68mg 68 mg, Uni vers l 02-08 Subdermal, ity of (NEXPLANON) 15:30: 14:28 ONCE NOW, [place] implant 68 00 :00 1 dose, Medica l mg [place] 02/09/20 at 1030, Routine
Use approved by: INFORMATION SERVICES VICE PRESIDENT etonogestre 2019- No 68mg Unive rs l 02-08 ity of (NEXPLANON) 15:30: 14:28 [place] implant 68 00 :00 Medical mg Branch etonogestre 2019- No 68mg 68 mg, Uni vers l 02-08 Subdermal, ity of (NEXPLANON) 15:30: 14:28 ONCE NOW, [place] implant 68 00 :00 1 dose, Medica l mg [place] 02/09/20 at 1030, Routine
Use approved by: INFORMATION SERVICES VICE PRESIDENT medroxyPROG 0 Yes [id number] 150mg Univers ESTERone 5-05 ity of (DEPO-PROVE 15:30: [place] RA) 00 Medical injection Branch 150 mg medroxyPROG 2020-0 Yes [id number] 150mg 150 mg, Univers ESTERone 5-05 Intramuscu ity o f (DEPO-PROVE 15:30: lar, [place] RA) 00 [id number], Medical injection First dose Bran ch 150 mg on Thu11/15/19 at 1030, Until Discontinu ed, Routine medroxyPROG 2020-0 Yes [id number] 150mg Univers ESTERone 5-05 ity of (DEPO-PROVE 15:30: [place] RA) 00 Medical injection Branch 150 mg medroxyPROG 2020-0 Yes [id number] 150mg Univers ESTERone 5-05 ity of (DEPO-PROVE 15:30: [place] RA) 00 Medical injection Branch 150 mg medroxyPROG 2020-0 Yes [id number] 150mg Univers ESTERone 5-05 ity of (DEPO-PROVE 15:30: [place] RA) 00 Medical injection Branch 150 mg medroxyPROG 2020-0 Yes [id number] 150mg Univers ESTERone 5-05 ity of (DEPO-PROVE 15:30: [place] RA) 00 Medical injection Branch 150 mg medroxyPROG 2020-0 Yes [id number] 150mg Univers ESTERone 5-05 ity of (DEPO-PROVE 15:30: [place] RA) 00 Medical injection Branch 150 mg medroxyPROG 2020-0 Yes [id number] 150mg Univers ESTERone 5-05 ity of (DEPO-PROVE 15:30: [place] RA) 00 Medical injection Branch 150 mg medroxyPROG 2020-0 Yes [id number] 150mg Univers ESTERone 5-05 ity of (DEPO-PROVE 15:30: [place] RA) 00 Medical injection Branch 150 mg medroxyPROG 2020-0 Yes [id number] 150mg Univers ESTERone 5-05 ity of (DEPO-PROVE 15:30: [place] RA) 00 Medical injection Branch 150 mg medroxyPROG 2020-0 Yes [id number] 150mg Univers ESTERone 5-05 ity of (DEPO-PROVE 15:30: [place] RA) 00 Medical injection Branch 150 mg medroxyPROG 2020-0 Yes [id number] 150mg Univers ESTERone 5-05 ity of (DEPO-PROVE 15:30: [place] RA) 00 Medical injection Branch 150 mg medroxyPROG 2020-0 Yes [id number] 150mg Univers ESTERone 5-05 ity of (DEPO-PROVE 15:30: [place] RA) 00 Medical injection Branch 150 mg medroxyPROG 2020-0 Yes [id number] 150mg Univers ESTERone 5-05 ity of (DEPO-PROVE 15:30: [place] RA) 00 Medical injection Branch 150 mg medroxyPROG 2020-0 Yes [id number] 150mg Univers ESTERone 5-05 ity of (DEPO-PROVE 15:30: [place] RA) 00 Medical injection Branch 150 mg medroxyPROG 2020-0 Yes [id number] 150mg Univers ESTERone 5-05 ity of (DEPO-PROVE 15:30: [place] RA) 00 Medical injection Branch 150 mg medroxyPROG 2020-0 Yes [id number] 150mg Univers ESTERone 5-05 ity of (DEPO-PROVE 15:30: [place] RA) 00 Medical injection Branch 150 mg medroxyPROG 2020-0 Yes [id number] 150mg Univers ESTERone 5-05 ity of (DEPO-PROVE 15:30: [place] RA) 00 Medical injection Branch 150 mg benzocaine- 2019-0 Yes 1{lozen 1 Lozenge, Univers menthol 3-12 ge} Oral, ity of (CEPACOL 17:42: Q4HPRN, [place] SORE THROAT 16 Starting Medi daisy (DEANNA-MEN)) Den[place] Branch lozenge 1 09/22/19 at Lozenge 1242, Until Discontinu ed, Routine, Sore throat 2019-0 Yes [id number] 1{tbl} Take 1 Univers vitamin 3-12 tablet by ity of w/FA tablet 00:00: mouth [place] 00 daily. May Medical substitute Branch for what is in stock and covered by patient plan docusate 2019-0 Yes [id number] 240mg Take 1 U nivers calcium 240 3-12 capsule by it y of mg capsule 00:00: mouth [place] 00 daily as Medical needed for Branch Constipati on. May substitute for what is in stock and covered by patient plan ferrous 2019-0 Yes [id number] 325mg Take 1 Un swapnil sulfate 325 3-12 tablet by ity of mg (65 mg 00:00: mouth 2 [place] iron) 00 (two) Medical tablet times Branch daily. May substitute for what is in stock and covered by patient plan ibuprofen Yes [id number] 600mg Take 1 Univers 600 mg 3-12 tablet by ity of tablet 00:00: mouth [place] 00 every 6 Medical (six) Branch hours as needed (Pain). Take with food or milk. Yes [id number] 1{tbl} Take 1 Univers vitamin 3-12 tablet by ity of w/FA tablet 00:00: mouth [place] 00 daily. May Medical substitute Branch for what is in stock and covered by patient plan docusate Yes [id number] 240mg Take 1 U nivers calcium 240 3-12 capsule by it y of mg capsule 00:00: mouth [place] 00 daily as Medical needed for Branch Constipati on. May substitute for what is in stock and covered by patient plan ferrous Yes [id number] 325mg Take 1 Un swapnil sulfate 325 3-12 tablet by ity of mg (65 mg 00:00: mouth 2 [place] iron) 00 (two) Medical tablet times Branch daily. May substitute for what is in stock and covered by patient plan ibuprofen Yes [id number] 600mg Take 1 Univers 600 mg 3-12 tablet by ity of tablet 00:00: mouth [place] 00 every 6 Medical (six) Branch hours as needed (Pain). Take with food or milk. Yes [id number] 1{tbl} Take 1 Univers vitamin 3-12 tablet by ity of w/FA tablet 00:00: mouth [place] 00 daily. May Medical substitute Branch for what is in stock and covered by patient plan docusate Yes [id number] 240mg Take 1 U nivers calcium 240 3-12 capsule by it y of mg capsule 00:00: mouth [place] 00 daily as Medical needed for Branch Constipati on. May substitute for what is in stock and covered by patient plan ferrous 0 Yes [id number] 325mg Take 1 Un swanpil sulfate 325 3-12 tablet by ity of mg (65 mg 00:00: mouth 2 [place] iron) 00 (two) Medical tablet times Branch daily. May substitute for what is in stock and covered by patient plan ibuprofen Yes [id number] 600mg Take 1 Univers 600 mg 3-12 tablet by ity of tablet 00:00: mouth [place] 00 every 6 Medical (six) Branch hours as needed (Pain). Take with food or milk. Yes [id number] 1{tbl} Take 1 Univers vitamin 3-12 tablet by ity of w/FA tablet 00:00: mouth [place] 00 daily. May Medical substitute Branch for what is in stock and covered by patient plan docusate Yes [id number] 240mg Take 1 U nivers calcium 240 3-12 capsule by it y of mg capsule 00:00: mouth once [place] 00 daily as Medical needed for Branch Constipati on. May substitute for what is in stock and covered by patient plan ferrous Yes [id number] 325mg Take 1 Un swapnil sulfate 325 3-12 tablet by ity of mg (65 mg 00:00: mouth 2 [place] iron) 00 (two) Medical tablet times Branch daily. May substitute for what is in stock and covered by patient plan ibuprofen Yes [id number] 600mg Take 1 Univers 600 mg 3-12 tablet by ity of tablet 00:00: mouth [place] 00 every 6 Medical (six) Branch hours as needed (Pain). Take with food or milk. Yes [id number] 1{tbl} Take 1 Univers vitamin 3-12 tablet by ity of w/FA tablet 00:00: mouth [place] 00 daily. May Medical substitute Branch for what is in stock and covered by patient plan docusate Yes [id number] 240mg Take 1 U nivers calcium 240 3-12 capsule by it y of mg capsule 00:00: mouth once [place] 00 daily as Medical needed for Branch Constipati on. May substitute for what is in stock and covered by patient plan ferrous Yes [id number] 325mg Take 1 Un swapnil sulfate 325 3-12 tablet by ity of mg (65 mg 00:00: mouth 2 [place] iron) 00 (two) Medical tablet times Branch daily. May substitute for what is in stock and covered by patient plan ibuprofen Yes [id number] 600mg Take 1 Univers 600 mg 3-12 tablet by ity of tablet 00:00: mouth [place] 00 every 6 Medical (six) Branch hours as needed (Pain). Take with food or milk. Yes [id number] 1{tbl} Take 1 Univers vitamin 3-12 tablet by ity of w/FA tablet 00:00: mouth [place] 00 daily. May Medical substitute Branch for what is in stock and covered by patient plan docusate Yes [id number] 240mg Take 1 U nivers calcium 240 3-12 capsule by it y of mg capsule 00:00: mouth once [place] 00 daily as Medical needed for Branch Constipati on. May substitute for what is in stock and covered by patient plan ferrous 0 Yes [id number] 325mg Take 1 Un swapnil sulfate 325 3-12 tablet by ity of mg (65 mg 00:00: mouth 2 [place] iron) 00 (two) Medical tablet times Branch daily. May substitute for what is in stock and covered by patient plan ibuprofen Yes [id number] 600mg Take 1 Univers 600 mg 3-12 tablet by ity of tablet 00:00: mouth [place] 00 every 6 Medical (six) Branch hours as needed (Pain). Take with food or milk. Yes [id number] 1{tbl} Take 1 Univers vitamin 3-12 tablet by ity of w/FA tablet 00:00: mouth [place] 00 daily. May Medical substitute Branch for what is in stock and covered by patient plan docusate Yes [id number] 240mg Take 1 U nivers calcium 240 3-12 capsule by it y of mg capsule 00:00: mouth once [place] 00 daily as Medical needed for Branch Constipati on. May substitute for what is in stock and covered by patient plan ferrous Yes [id number] 325mg Take 1 Un swapnil sulfate 325 3-12 tablet by ity of mg (65 mg 00:00: mouth 2 [place] iron) 00 (two) Medical tablet times Branch daily. May substitute for what is in stock and covered by patient plan ibuprofen Yes [id number] 600mg Take 1 Univers 600 mg 3-12 tablet by ity of tablet 00:00: mouth [place] 00 every 6 Medical (six) Branch hours as needed (Pain). Take with food or milk. Yes [id number] 1{tbl} Take 1 Univers vitamin 3-12 tablet by ity of w/FA tablet 00:00: mouth [place] 00 daily. May Medical substitute Branch for what is in stock and covered by patient plan docusate Yes [id number] 240mg Take 1 U nivers calcium 240 3-12 capsule by it y of mg capsule 00:00: mouth once [place] 00 daily as Medical needed for Branch Constipati on. May substitute for what is in stock and covered by patient plan ferrous Yes [id number] 325mg Take 1 Un swapnil sulfate 325 3-12 tablet by ity of mg (65 mg 00:00: mouth 2 [place] iron) 00 (two) Medical tablet times Branch daily. May substitute for what is in stock and covered by patient plan ibuprofen Yes [id number] 600mg Take 1 Univers 600 mg 3-12 tablet by ity of tablet 00:00: mouth [place] 00 every 6 Medical (six) Branch hours as needed (Pain). Take with food or milk. Yes [id number] 1{tbl} Take 1 Univers vitamin 3-12 tablet by ity of w/FA tablet 00:00: mouth [place] 00 daily. May Medical substitute Branch for what is in stock and covered by patient plan docusate Yes [id number] 240mg Take 1 U nivers calcium 240 3-12 capsule by it y of mg capsule 00:00: mouth once [place] 00 daily as Medical needed for Branch Constipati on. May substitute for what is in stock and covered by patient plan ferrous Yes [id number] 325mg Take 1 Un swapnil sulfate 325 3-12 tablet by ity of mg (65 mg 00:00: mouth 2 [place] iron) 00 (two) Medical tablet times Branch daily. May substitute for what is in stock and covered by patient plan ibuprofen Yes [id number] 600mg Take 1 Univers 600 mg 3-12 tablet by ity of tablet 00:00: mouth [place] 00 every 6 Medical (six) Branch hours as needed (Pain). Take with food or milk. Yes [id number] 1{tbl} Take 1 Univers vitamin 3-12 tablet by ity of w/FA tablet 00:00: mouth [place] 00 daily. May Medical substitute Branch for what is in stock and covered by patient plan docusate Yes [id number] 240mg Take 1 U nivers calcium 240 3-12 capsule by it y of mg capsule 00:00: mouth once [place] 00 daily as Medical needed for Branch Constipati on. May substitute for what is in stock and covered by patient plan ferrous 2020-0 Yes [id number] 325mg Take 1 Un swapnil sulfate 325 3-12 tablet by ity of mg (65 mg 00:00: mouth 2 [place] iron) 00 (two) Medical tablet times Branch daily. May substitute for what is in stock and covered by patient plan ibuprofen 2020-0 Yes [id number] 600mg Take 1 Univers 600 mg 3-12 tablet by ity of tablet 00:00: mouth [place] 00 every 6 Medical (six) Branch hours as needed (Pain). Take with food or milk. Yes [id number] 1{tbl} Take 1 Univers vitamin 3-12 tablet by ity of w/FA tablet 00:00: mouth [place] 00 daily. May Medical substitute Branch for what is in stock and covered by patient plan docusate Yes [id number] 240mg Take 1 U nivers calcium 240 3-12 capsule by it y of mg capsule 00:00: mouth once [place] 00 daily as Medical needed for Branch Constipati on. May substitute for what is in stock and covered by patient plan ferrous 0 Yes [id number] 325mg Take 1 Un swapnil sulfate 325 3-12 tablet by ity of mg (65 mg 00:00: mouth 2 [place] iron) 00 (two) Medical tablet times Branch daily. May substitute for what is in stock and covered by patient plan ibuprofen 0 Yes [id number] 600mg Take 1 Univers 600 mg 3-12 tablet by ity of tablet 00:00: mouth [place] 00 every 6 Medical (six) Branch hours as needed (Pain). Take with food or milk. 0 Yes [id number] 1{tbl} Take 1 Univers vitamin 3-12 tablet by ity of w/FA tablet 00:00: mouth [place] 00 daily. May Medical substitute Branch for what is in stock and covered by patient plan docusate 0 Yes [id number] 240mg Take 1 U nivers calcium 240 3-12 capsule by it y of mg capsule 00:00: mouth once [place] 00 daily as Medical needed for Branch Constipati on. May substitute for what is in stock and covered by patient plan ferrous 2020-0 Yes [id number] 325mg Take 1 Un swapnil sulfate 325 3-12 tablet by ity of mg (65 mg 00:00: mouth 2 [place] iron) 00 (two) Medical tablet times Branch daily. May substitute for what is in stock and covered by patient plan ibuprofen Yes [id number] 600mg Take 1 Univers 600 mg 3-12 tablet by ity of tablet 00:00: mouth [place] 00 every 6 Medical (six) Branch hours as needed (Pain). Take with food or milk. Yes [id number] 1{tbl} Take 1 Univers vitamin 3-12 tablet by ity of w/FA tablet 00:00: mouth [place] 00 daily. May Medical substitute Branch for what is in stock and covered by patient plan docusate Yes [id number] 240mg Take 1 U nivers calcium 240 3-12 capsule by it y of mg capsule 00:00: mouth once [place] 00 daily as Medical needed for Branch Constipati on. May substitute for what is in stock and covered by patient plan ferrous Yes [id number] 325mg Take 1 Un swapnil sulfate 325 3-12 tablet by ity of mg (65 mg 00:00: mouth 2 [place] iron) 00 (two) Medical tablet times Branch daily. May substitute for what is in stock and covered by patient plan ibuprofen Yes [id number] 600mg Take 1 Univers 600 mg 3-12 tablet by ity of tablet 00:00: mouth [place] 00 every 6 Medical (six) Branch hours as needed (Pain). Take with food or milk. Yes [id number] 1{tbl} Take 1 Univers vitamin 3-12 tablet by ity of w/FA tablet 00:00: mouth [place] 00 daily. May Medical substitute Branch for what is in stock and covered by patient plan docusate Yes [id number] 240mg Take 1 U nivers calcium 240 3-12 capsule by it y of mg capsule 00:00: mouth once [place] 00 daily as Medical needed for Branch Constipati on. May substitute for what is in stock and covered by patient plan ferrous 0 Yes [id number] 325mg Take 1 Un swapnil sulfate 325 3-12 tablet by ity of mg (65 mg 00:00: mouth 2 [place] iron) 00 (two) Medical tablet times Branch daily. May substitute for what is in stock and covered by patient plan ibuprofen 2020-0 Yes [id number] 600mg Take 1 [facility] 600 mg 3-12 tablet by ity of tablet 00:00: mouth [place] 00 every 6 Medical (six) Branch hours as needed (Pain). Take with food or milk. Yes [id number] 1{tbl} Take 1 [facility] vitamin 3-12 tablet by ity of w/FA tablet 00:00: mouth [place] 00 daily. May Medical substitute Branch for what is in stock and covered by patient plan docusate Yes [id number] 240mg Take 1 U nivers calcium 240 3-12 capsule by it y of mg capsule 00:00: mouth once [place] 00 daily as Medical needed for Branch Constipati on. May substitute for what is in stock and covered by patient plan ferrous Yes [id number] 325mg Take 1 Un swapnil sulfate 325 3-12 tablet by ity of mg (65 mg 00:00: mouth 2 [place] iron) 00 (two) Medical tablet times Branch daily. May substitute for what is in stock and covered by patient plan ibuprofen Yes [id number] 600mg Take 1 [facility] 600 mg 3-12 tablet by ity of tablet 00:00: mouth [place] 00 every 6 Medical (six) Branch hours as needed (Pain). Take with food or milk. Yes [id number] 1{tbl} Take 1 [facility] vitamin 3-12 tablet by ity of w/FA tablet 00:00: mouth [place] 00 daily. May Medical substitute Branch for what is in stock and covered by patient plan docusate Yes [id number] 240mg Take 1 U nivers calcium 240 3-12 capsule by it y of mg capsule 00:00: mouth once [place] 00 daily as Medical needed for Branch Constipati on. May substitute for what is in stock and covered by patient plan ferrous Yes [id number] 325mg Take 1 Un swapnil sulfate 325 3-12 tablet by ity of mg (65 mg 00:00: mouth 2 [place] iron) 00 (two) Medical tablet times Branch daily. May substitute for what is in stock and covered by patient plan ibuprofen Yes [id number] 600mg Take 1 [facility] 600 mg 3-12 tablet by ity of tablet 00:00: mouth [place] 00 every 6 Medical (six) Branch hours as needed (Pain). Take with food or milk. Yes [id number] 1{tbl} Take 1 [facility] vitamin 3-12 tablet by ity of w/FA tablet 00:00: mouth [place] 00 daily. May Medical substitute Branch for what is in stock and covered by patient plan docusate Yes [id number] 240mg Take 1 U nivers calcium 240 3-12 capsule by it y of mg capsule 00:00: mouth once [place] 00 daily as Medical needed for Branch Constipati on. May substitute for what is in stock and covered by patient plan ferrous Yes [id number] 325mg Take 1 Un swapnil sulfate 325 3-12 tablet by ity of mg (65 mg 00:00: mouth 2 [place] iron) 00 (two) Medical tablet times Branch daily. May substitute for what is in stock and covered by patient plan ibuprofen Yes [id number] 600mg Take 1 [facility] 600 mg 3-12 tablet by ity of tablet 00:00: mouth [place] 00 every 6 Medical (six) Branch hours as needed (Pain). Take with food or milk. Yes [id number] 1{tbl} Take 1 [facility] vitamin 3-12 tablet by ity of w/FA tablet 00:00: mouth [place] 00 daily. May Medical substitute Branch for what is in stock and covered by patient plan docusate Yes [id number] 240mg Take 1 U nivers calcium 240 3-12 capsule by it y of mg capsule 00:00: mouth once [place] 00 daily as Medical needed for Branch Constipati on. May substitute for what is in stock and covered by patient plan ferrous Yes [id number] 325mg Take 1 Un swapnil sulfate 325 3-12 tablet by ity of mg (65 mg 00:00: mouth 2 [place] iron) 00 (two) Medical tablet times Branch daily. May substitute for what is in stock and covered by patient plan ibuprofen Yes [id number] 600mg Take 1 [facility] 600 mg 3-12 tablet by ity of tablet 00:00: mouth [place] 00 every 6 Medical (six) Branch hours as needed (Pain). Take with food or milk. Yes [id number] 1{tbl} Take 1 [facility] vitamin 3-12 tablet by ity of w/FA tablet 00:00: mouth [place] 00 daily. May Medical substitute Branch for what is in stock and covered by patient plan docusate Yes [id number] 240mg Take 1 U nivers calcium 240 3-12 capsule by it y of mg capsule 00:00: mouth once [place] 00 daily as Medical needed for Branch Constipati on. May substitute for what is in stock and covered by patient plan ferrous 20200 Yes [id number] 325mg Take 1 Un swapnil sulfate 325 3-12 tablet by ity of mg (65 mg 00:00: mouth 2 [place] iron) 00 (two) Medical tablet times Branch daily. May substitute for what is in stock and covered by patient plan ibuprofen Yes [id number] 600mg Take 1 [facility] 600 mg 3-12 tablet by ity of tablet 00:00: mouth [place] 00 every 6 Medical (six) Branch hours as needed (Pain). Take with food or milk. Yes [id number] 1{tbl} Take 1 [facility] vitamin 3-12 tablet by ity of w/FA tablet 00:00: mouth [place] 00 daily. May Medical substitute Branch for what is in stock and covered by patient plan docusate Yes [id number] 240mg Take 1 U nivers calcium 240 3-12 capsule by it y of mg capsule 00:00: mouth once [place] 00 daily as Medical needed for Branch Constipati on. May substitute for what is in stock and covered by patient plan ferrous Yes [id number] 325mg Take 1 Un swapnil sulfate 325 3-12 tablet by ity of mg (65 mg 00:00: mouth 2 [place] iron) 00 (two) Medical tablet times Branch daily. May substitute for what is in stock and covered by patient plan ibuprofen 0 Yes [id number] 600mg Take 1 [facility] 600 mg 3-12 tablet by ity of tablet 00:00: mouth [place] 00 every 6 Medical (six) Branch hours as needed (Pain). Take with food or milk. Yes [id number] 1{tbl} Take 1 [facility] vitamin 3-12 tablet by ity of w/FA tablet 00:00: mouth [place] 00 daily. May Medical substitute Branch for what is in stock and covered by patient plan docusate Yes [id number] 240mg Take 1 U nivers calcium 240 3-12 capsule by it y of mg capsule 00:00: mouth once [place] 00 daily as Medical needed for Branch Constipati on. May substitute for what is in stock and covered by patient plan ferrous 2020-0 Yes [id number] 325mg Take 1 Un swapnil sulfate 325 3-12 tablet by ity of mg (65 mg 00:00: mouth 2 [place] iron) 00 (two) Medical tablet times Branch daily. May substitute for what is in stock and covered by patient plan ibuprofen 2019-0 Yes [id number] 600mg Take 1 [facility] 600 mg 3-12 tablet by ity of tablet 00:00: mouth [place] 00 every 6 Medical (six) Branch hours as needed (Pain). Take with food or milk. Yes [id number] 1{tbl} Take 1 [facility] vitamin 3-12 tablet by ity of w/FA tablet 00:00: mouth [place] 00 daily. May Medical substitute Branch for what is in stock and covered by patient plan docusate Yes [id number] 240mg Take 1 U nivers calcium 240 3-12 capsule by it y of mg capsule 00:00: mouth once [place] 00 daily as Medical needed for Branch Constipati on. May substitute for what is in stock and covered by patient plan ferrous Yes [id number] 325mg Take 1 Un swapnil sulfate 325 3-12 tablet by ity of mg (65 mg 00:00: mouth 2 [place] iron) 00 (two) Medical tablet times Branch daily. May substitute for what is in stock and covered by patient plan ibuprofen 0 Yes [id number] 600mg Take 1 [facility] 600 mg 3-12 tablet by ity of tablet 00:00: mouth [place] 00 every 6 Medical (six) Branch hours as needed (Pain). Take with food or milk. Yes [id number] 1{tbl} Take 1 [facility] vitamin 3-12 tablet by ity of w/FA tablet 00:00: mouth [place] 00 daily. May Medical substitute Branch for what is in stock and covered by patient plan docusate 0 Yes [id number] 240mg Take 1 U nivers calcium 240 3-12 capsule by it y of mg capsule 00:00: mouth once [place] 00 daily as Medical needed for Branch Constipati on. May substitute for what is in stock and covered by patient plan ferrous 0 Yes [id number] 325mg Take 1 Un swapnil sulfate 325 3-12 tablet by ity of mg (65 mg 00:00: mouth 2 [place] iron) 00 (two) Medical tablet times Branch daily. May substitute for what is in stock and covered by patient plan ibuprofen 2019- Yes [id number] 600mg Take 1 [facility] 600 mg 3-12 tablet by ity of tablet 00:00: mouth [place] 00 every 6 Medical (six) Branch hours as needed (Pain). Take with food or milk. HYDROcodone 2019- No [id number] 1{tbl} Take 1 [facility] -acetaminop 3-12 03-20 tablet by it y of hen 5-325 00:00: 04:59 mouth [place] mg tablet 00 :00 every 6 Medical (six) Branch hours as needed (Pain scale > 4) for up to 7 days. Do not exceed 3 grams of acetaminop hen in 24 hours. HYDROcodone 2019- No [id number] 1{tbl} Take 1 Univers -acetaminop 3-12 03-20 tablet by it y of hen 5-325 00:00: 04:59 mouth [place] mg tablet 00 :00 every 6 Medical (six) Branch hours as needed (Pain scale > 4) for up to 7 days. Do not exceed 3 grams of acetaminop hen in 24 hours. rho(D) Yes 300ug 300 mcg, Univer s immune 3-11 Intramuscu ity of globulin 02:59: lar, ONCE, [place] (RHOGAM) 46 For 1 Medical syringe 300 dose, Branch mcg Conditiona l, Routine human Yes .5mL 0.5 mL, Univers papillomav 3-11 Intramuscu ity of vac,9-aide(P 02:59: lar, [place] F) 41 ONCE-PRIOR Medical (GARDASIL-9 TO Branch ) syringe DISCHARGE, 0.5 mL 1 dose, Starting e 09/20/19 at 2158, Until Discontinu ed, Routine, Give vaccine prior to discharge HYDROcodone Yes 2{tbl} 2 tablet, Univers -acetaminop 3-11 Oral, ity of hen (NORCO 02:59: Q6HPRN, [place] 5) 5-325 mg 41 Starting Medi daisy tablet 2 Tue Branch tablet 09/20/19 at 215, Until Discontinu ed, Routine, Pain (scale 7-10), If uncontroll ed by Ibuprofen HYDROcodone 2020-0 Yes 1{tbl} 1 tablet, Univers -acetaminop 3-11 Oral, ity of hen (NORCO 02:59: Q6HPRN, [place] 5) 5-325 mg 41 Starting Medi daisy tablet 1 Tue Branch tablet 09/20/19 at 2158, Until Discontinu ed, Routine, Pain (scale 4-6), If uncontroll ed by Ibuprofen ibuprofen 2020-0 Yes 600mg 600 mg, Univ ers (IBU) 3-11 Oral, ity of tablet 600 02:59: Q6HPRN, [place] mg 41 Starting Medical Tue Branch 09/20/19 at 2158, Until Discontinu ed, Routine, Pain (scale 1-3) ondansetron 2020-0 Yes 4mg 4 mg, Slow Univers (ZOFRAN 3-11 IV Push, ity of (PF)) 02:59: Q8HPRN, [place] injection 4 41 Starting Medi daisy mg Tue Branch 09/20/19 at 2158, Until Discontinu ed, Routine, Nausea and Vomiting (N/V) simethicone 2020-0 Yes 160mg 160 mg, Un swapnil (GAS RELIEF 3-11 Oral, ity of (SIMETHICON 02:59: PC+HSPRN, [place] E)) 41 Starting Medical chewable Tue Branch tablet 160 09/20/19 at mg 2158, Until Discontinu ed, Routine, Gas magnesium 2020-0 Yes 30mL 30 mL, Univer s hydroxide 3-11 Oral, ity of (MILK OF 02:59: QDAILYPRN, [place] MAGNESIA) 41 Starting Medica l 400 mg/5 mL Tue Branch suspension 09/20/19 at 30 mL 2158, Until Discontinu ed, Routine, Constipati on diphenhydrA 2020-0 Yes 25mg 25 mg, IV U nivers MINE-0.9 % 3-11 Piggyback, ity of sod.chlr 02:59: Administer [place] (BENADRYL) 40 over 30 Medica l 25 mg/50 mL Minutes, Bran ch piggyback Q6HPRN, 1 25 mg dose, Starting 09/20/19 at 2158, Until Discontinu ed, Routine, Itching diphenhydrA Yes 25mg 25 mg, Univ ers MINE 09-20 Oral, ity of (BENADRYL) 02:59: Q6HPRN, [place] tablet 25 40 Starting Medica l mg [facility] 09/20/19 at 2158, Until Discontinu ed, Routine, Sleep, Itching bisacodyL Yes 10mg 10 mg, Univer s (DULCOLAX) 09-20 Rectal, ity of suppository 02:59: QDAILYPRN, [place] 10 mg 40 Starting Medical [facility] 09/20/19 at 2158, Until Discontinu ed, Routine, Constipati on docusate Yes 240mg 240 mg, Unive rs calcium 09-20 Oral, ity of (SURFAK) 02:59: QDAILYPRN, [place] capsule 240 40 Starting Medi daisy mg [facility] 09/20/19 at 2158, Until Discontinu ed, Routine, Constipati on naloxone 2019- No .4mg 0.4 mg, Unive rs (NARCAN) 09-20 Slow IV ity of injection 01:12: 01:11 Push, PRN [place] 0.4 mg 35 :35 - SEE Medical INSTRUCTIO Branch , Starting [facility] 09/20/19 at 2011, Until [place] 09/22/19 at 2010, Routine, Analgesia Recovery, PACU ketorolac 2019- No 30mg 30 mg, Unive rs (TORADOL) 09-20 Slow IV ity of injection 01:12: 01:45 Push, PRN, [place] 30 mg 35 :00 1 dose, Medical Starting Branch [facility] 09/20/19 at 2011, Until Thu09/20/19 at 2044, Routine, Pain (scale 7-10), PACU
Fa culty member approving Restricted medication : JOSÉ MIGUEL LEE Investigati 2020- No 1g 1 g, IV Un swapnil onal Drug- 09-19 Infusion, ity of tranexamic 21:45: 02:59 ONCE, 1 [place] acid 1 gram 00 :47 dose, [facility] Med ical or placebo 09/20/19 at [facility] in [place] 50 mL 1645
Pr incipal investigat or: ERLINDA VALENZUELA metoclopram 2019- No 10mg 10 mg, IV Univers emile HCl 09-19 Piggyback, ity o f (REGLAN) 10 17:30: 17:54 ONCE, 1 [place] mg in NaCl 00 :00 dose, Tue Medi daisy 0.9% (NS) 09/20/19 at [facility] piggyback 1230, 50 mL famotidine 2019- No 20mg 20 mg, IV U nivers (PEPCID 09-19 Piggyback, ity o f (PF)) 17:30: 18:26 ONCE, 1 [place] injection 00 :00 dose, Tue Medic al 20 mg 09/20/19 at Branch 1230, Routine gentamicin 2019- No 5mg/kg 480 mg Un swapnil 40 mg/mL 09-19 (rounded ity of 480 mg in 16:26: 22:43 from 470 [place] NaCl 0.9% 09 :00 mg = 5 Medical (NS) 250 mL mg/kg ?94 [facility] IV infusion kg Adjusted weight), IV Infusion, O.R. HOLDING ONCE, 1 dose, Starting 09/20/19 at 1126, Until Discontinu ed, 250 mL
Reas on for Anti-Infec tive: Surgical Prophylaxi s
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
Duration of therapy: within 24 hours of surgery lactated 2020- No 1000mL at 125 Univ ers ringers IV 09-19 03-11 mL/hr, ity of infusion 16:00: 02:59 1,000 mL, [place] 1,000 mL 00 :47 IV Medical Infusion, Branch CONTINUOUS , Starting 09/20/19 at 1100, Until 09/20/19 at 2159, Routine acetaminoph 2019- No 650mg 650 mg, U nivers en 09-19 Oral, ity of (TYLENOL) 16:00: 21:41 ONCE, 1 [place] tablet 650 00 :00 dose, Tue Medi daisy mg 09/20/19 at Branch 1100, Routine sodium 2019- 2020- No 30mL 30 mL, Univers citrate-cit 09-19 Oral, ity of shana acid 15:53: 22:23 PRE-PROCED [place] (BICITRA) 42 :00 URE ONCE, Medic al 500-334 1 dose, Branch mg/5 mL Starting solution 30 Tue mL 09/20/19 at 1053, Until [place] 09/22/19 at 2359, Routine, Surgery/Pr ocedure gelaFENesin 2018-07 Yes [id number] 100mg Take 5 mL Univers 100 mg/5 mL 2-31 by mouth ity of solution 00:00: every 4 [place] 00 (four) Medical hours. Branch danyaiFENesin 2018-07 Yes [id number] 100mg Take 5 mL Univers 100 mg/5 mL 2-31 by mouth ity of solution 00:00: every 4 [place] 00 (four) Medical hours. Ha saenzaiFENesin 2018-07 Yes [id number] 100mg Take 5 mL Univers 100 mg/5 mL 2-31 by mouth ity of solution 00:00: every 4 [place] 00 (four) Medical hours. Ha saenzaiFENesin 2018-07 Yes [id number] 100mg Take 5 mL Univers 100 mg/5 mL 2-31 by mouth ity of solution 00:00: every 4 [place] 00 (four) Medical hours. Ha saenzaiFENesin 2018-07 Yes [id number] 100mg Take 5 mL Univers 100 mg/5 mL 2-31 by mouth ity of solution 00:00: every 4 [place] 00 (four) Medical hours. Ha saenzaiFENesin 2018-07 Yes [id number] 100mg Take 5 mL Univers 100 mg/5 mL 2-31 by mouth ity of solution 00:00: every 4 [place] 00 (four) Medical hours. Ha saenzaiFENesin 2018-07 Yes [id number] 100mg Take 5 mL Univers 100 mg/5 mL 2-31 by mouth ity of solution 00:00: every 4 [place] 00 (four) Medical hours. Ha saenzaiFENesin 2018-07 Yes [id number] 100mg Take 5 mL Univers 100 mg/5 mL 2-31 by mouth ity of solution 00:00: every 4 [place] 00 (four) Medical hours. Ha saenzaiFENesin 2018-07 Yes [id number] 100mg Take 5 mL [facility] 100 mg/5 mL 2-31 by mouth ity of solution 00:00: every 4 [place] 00 (four) Medical hours. Ha guaiFENesin 2018-07 Yes [id number] 100mg Take 5 mL [facility] 100 mg/5 mL 2-31 by mouth ity of solution 00:00: every 4 [place] 00 (four) Medical hours. [place] danyFENesin 2018-07 Yes [id number] 100mg Take 5 mL Univers 100 mg/5 mL 2-31 by mouth ity of solution 00:00: every 4 [place] 00 (four) Medical hours. [place] danyFENesin 2018-07 Yes [id number] 100mg Take 5 mL Univers 100 mg/5 mL 2-31 by mouth ity of solution 00:00: every 4 [place] 00 (four) [facility]. [facility] [id number] 100mg Take 5 mL Univers 100 mg/5 mL 2-31 by mouth ity of solution 00:00: every 4 [place] 00 (four) Medical hours. [facility] Yes [id number] 100mg Take 5 mL Univers 100 mg/5 mL 2-31 by mouth ity of solution 00:00: every 4 [place] 00 (four) Medical hours. [facility] 2018-07 2020- No [id number] 100mg Take 5 mL Univers 100 mg/5 mL 2-31 03-12 by mouth ity of solution 00:00: 00:00 every 4 [place] 00 :00 (four) Medical hours. [facility] Yes Take by Un swapnil (ROBITUSSIN 7-17 mouth. ity of CHEST 15:31: [place] CONGESTION 10 Medical ORAL) [facility] Yes Take by Un swapnil (ROBITUSSIN 7-17 mouth. ity of CHEST 15:31: [place] CONGESTION 10 Medical ORAL) [facility] Yes Take by Un swapnil (ROBITUSSIN 7-17 mouth. ity of CHEST 15:31: [place] CONGESTION 10 Medical ORAL) [facility] Yes Take by Un swapnil (ROBITUSSIN 7-17 mouth. ity of CHEST 15:31: [place] CONGESTION 10 Medical ORAL) [facility] Yes Take by Un swapnil (ROBITUSSIN 7-17 mouth. ity of CHEST 15:31: [place] CONGESTION 10 Medical ORAL) [facility] Yes Take by Un swapnil (ROBITUSSIN 7-17 mouth. ity of CHEST 15:31: [place] CONGESTION 10 Medical ORAL) [facility] Yes Take by Un swapnil (ROBITUSSIN 7-17 mouth. ity of CHEST 15:31: [place] CONGESTION 10 Medical ORAL) Branch [facility] Yes Take by Un swapnil (ROBITUSSIN 7-17 mouth. ity of CHEST 15:31: [place] CONGESTION 10 Medical ORAL) Branch [facility] Yes Take by Un swapnil (ROBITUSSIN 7-17 mouth. ity of CHEST 15:31: [place] CONGESTION 10 Medical ORAL) [facility] Yes Take by Un swapnil (ROBITUSSIN 7-17 mouth. ity of CHEST 15:31: [place] CONGESTION 10 Medical ORAL) [facility] Yes Take by Un swapnil (ROBITUSSIN 7-17 mouth. ity of CHEST 15:31: [place] CONGESTION 10 Medical ORAL) [facility] Yes Take by Un swapnil (ROBITUSSIN 7-17 mouth. ity of CHEST 15:31: [place] CONGESTION 10 Medical ORAL) [facility] Yes Take by Un swapnil (ROBITUSSIN 7-17 mouth. ity of CHEST 15:31: [place] CONGESTION 10 Medical ORAL) [facility] Yes Take by Un swapnil (ROBITUSSIN 7-17 mouth. ity of CHEST 15:31: [place] CONGESTION 10 Medical ORAL) [facility] Yes Take by Un swapnil (ROBITUSSIN 7-17 mouth. ity of CHEST 15:31: [place] CONGESTION 10 Medical ORAL) [facility] Yes Take by Un swapnil (ROBITUSSIN 7-17 mouth. ity of CHEST 15:31: [place] CONGESTION 10 Medical ORAL) [facility] Yes Take by Un swapnil (ROBITUSSIN 7-17 mouth. ity of CHEST 15:31: [place] CONGESTION 10 Medical ORAL) [facility] Yes Take by Un swapnil (ROBITUSSIN 7-17 mouth. ity of CHEST 15:31: [place] CONGESTION 10 Medical ORAL) Branch Immunizations Ordered Filled Immunization Date Status Comments [facility] e Immunization Name Name TDAP (ADACEL) 2019-07-21 Completed [facility]II[facility] of VACCINE 00:00:00 [facility] TDAP (ADACEL) 2019-07-21 Completed [facility]IIB[facility] of VACCINE 00:00:00 [facility] TDAP (ADACEL) 2019-07-21 Completed University of VACCINE 00:00:00 [facility] TDAP (ADACEL) 2019-07-21 Completed University of VACCINE 00:00:00 [facility] TDAP (ADACEL) 2019-07-21 Completed University of VACCINE 00:00:00 [facility] Branch TDAP (ADACEL) 2019-07-21 Completed University of VACCINE 00:00:00 [facility] Branch TDAP (ADACEL) 2019-07-21 Completed University of VACCINE 00:00:00 [facility] Branch TDAP (ADACEL) 2019-07-21 Completed University of VACCINE 00:00:00 [facility] Branch TDAP (ADACEL) 2019-07-21 Completed University of VACCINE 00:00:00 [facility] Branch TDAP (ADACEL) 2019-07-21 Completed University of VACCINE 00:00:00 [facility] Branch TDAP (ADACEL) 2019-07-21 Completed University of VACCINE 00:00:00 [facility] Branch TDAP (ADACEL) 2019-07-21 Completed University of VACCINE 00:00:00 [facility] Branch TDAP (ADACEL) 2019-07-21 Completed University of VACCINE 00:00:00 [facility] Branch TDAP (ADACEL) 2019-07-21 Completed University of VACCINE 00:00:00 [facility] Branch TDAP (ADACEL) 2019-07-21 Completed University of VACCINE 00:00:00 [facility] Branch TDAP (ADACEL) 2019-07-21 Completed University of VACCINE 00:00:00 [facility] Branch TDAP (ADACEL) 2019-07-21 Completed University of VACCINE 00:00:00 [facility] Branch TDAP (ADACEL) 2019-07-21 Completed University of VACCINE 00:00:00 [facility] Branch TDAP (ADACEL) 2019-07-21 Completed University of VACCINE 00:00:00 [facility] Branch TDAP (ADACEL) 2019-07-21 Completed University of VACCINE 00:00:00 [facility] TDAP (ADACEL) 2019-07-21 Completed University of VACCINE 00:00:00 [facility] Branch TDAP (ADACEL) 2019-07-21 Completed University of VACCINE 00:00:00 [facility] Branch TDAP (ADACEL) 2019-07-21 Completed University of VACCINE 00:00:00 [facility] Branch TDAP (ADACEL) 2019-07-21 Completed University of VACCINE 00:00:00 [facility] TDAP (ADACEL) 2019-07-21 Completed University of VACCINE 00:00:00 [facility] Branch TDAP (ADACEL) 2019-07-21 Completed University of VACCINE 00:00:00 [facility] Branch TDAP (ADACEL) 2019-07-21 Completed University of VACCINE 00:00:00 [facility] Branch TDAP (ADACEL) 2019-07-21 Completed University of VACCINE 00:00:00 [facility] Branch TDAP (ADACEL) 2019-07-21 Completed University of VACCINE 00:00:00 [facility] Branch TDAP (ADACEL) 2019-07-21 Completed University of VACCINE 00:00:00 [facility] Branch TDAP (ADACEL) 2019-07-21 Completed University of VACCINE 00:00:00 [facility] Branch TDAP (ADACEL) 2019-07-21 Completed University of VACCINE 00:00:00 [facility] TDAP (ADACEL) 2019-07-21 Completed University of VACCINE 00:00:00 [facility] TDAP (ADACEL) 2019-07-21 Completed University of VACCINE 00:00:00 [facility] TDAP (ADACEL) 2019-07-21 Completed University of VACCINE 00:00:00 [facility] TDAP (ADACEL) 2019-07-21 Completed University of VACCINE 00:00:00 [facility] TDAP (ADACEL) 2019-07-21 Completed University of VACCINE 00:00:00 [facility] Vital Signs Vital Name Observation Time Observation Value Comments Source Systolic blood 2020-08-09 15:08:00 127 mm[Hg] Univer sity of pressure [facility] Diastolic blood 2020-08-09 15:08:00 80 mm[Hg] Unive rsity of pressure [facility] Heart rate 2020-08-09 15:08:00 112 /min [facility] Body temperature 2020-08-09 15:08:00 36.33 [facility] [place] [facility] 2020-08-09 15:08:00 16 /min [facility] [place] [facility] Body height 2020-08-09 15:08:00 164.6 cm [facility] Body weight 2020-08-09 15:08:00 129.956 kg [facility] BMI 2020-08-09 15:08:00 47.97 kg/m2 [facility] Systolic blood 2020-08-09 15:08:00 127 mm[Hg] Univer sity of pressure [facility] Diastolic blood 2020-08-09 15:08:00 80 mm[Hg] Unive rsity of pressure [facility] Heart rate 2020-08-09 15:08:00 112 /min [facility] Body temperature 2020-08-09 15:08:00 36.33 Qian [facility] Respiratory rate 2020-08-09 15:08:00 16 /min [facility] Body height 2020-08-09 15:08:00 164.6 cm [facility] Body weight 2020-08-09 15:08:00 129.956 kg [facility] BMI 2020-08-09 15:08:00 47.97 kg/m2 [facility] Systolic blood 2020-04-06 13:20:00 115 mm[Hg] [facility] Diastolic blood 2020-04-06 13:20:00 75 mm[Hg] [facility] Heart rate 2020-04-06 13:20:00 71 /min [facility] Body temperature 2020-04-06 13:20:00 36.78 Qian [facility] Respiratory rate 2020-04-06 13:20:00 16 /min [facility] Body height 2020-04-06 13:20:00 162.6 cm [facility] Body weight 2020-04-06 13:20:00 127.325 kg [facility] BMI 2020-04-06 13:20:00 48.18 kg/m2 [facility] Systolic blood 2020-02-23 13:24:00 122 mm[Hg] [facility] Diastolic blood 2020-02-23 13:24:00 71 mm[Hg] [facility] Heart rate 2020-02-23 13:24:00 64 /min [facility] Body temperature 2020-02-23 13:24:00 36.61 Qian [facility] Respiratory rate 2020-02-23 13:24:00 16 /min [facility] Body height 2020-02-23 13:24:00 162.6 cm [facility] Body weight 2020-02-23 13:24:00 127.574 kg [facility] BMI 2020-02-23 13:24:00 48.28 kg/m2 [facility] Systolic blood 2020-02-09 13:45:00 106 mm[Hg] [facility] Diastolic blood 2020-02-09 13:45:00 75 mm[Hg] [facility] Heart rate 2020-02-09 13:45:00 83 /min [facility] Body temperature 2020-02-09 13:45:00 36.44 Qian [facility] Respiratory rate 2020-02-09 13:45:00 16 /min [facility] Body height 2020-02-09 13:45:00 162.6 cm [facility] Body weight 2020-02-09 13:45:00 129.36 kg [facility] BMI 2020-02-09 13:45:00 48.95 kg/m2 [facility] Systolic blood 2020-02-02 14:20:00 132 mm[Hg] [facility] Diastolic blood 2020-02-02 14:20:00 82 mm[Hg] [facility] Heart rate 2020-02-02 14:20:00 72 /min [facility] Body temperature 2020-02-02 14:20:00 36.67 Qian [facility] Respiratory rate 2020-02-02 14:20:00 16 /min [facility] Body height 2020-02-02 14:20:00 162.6 cm [facility] Body weight 2020-02-02 14:20:00 131.118 kg [facility] BMI 2020-02-02 14:20:00 49.62 kg/m2 [facility] Systolic blood 2019-11-15 14:00:00 116 mm[Hg] [facility] Diastolic blood 2019-11-15 14:00:00 75 mm[Hg] Unive rsity of pressure [facility] Heart rate 2019-11-15 14:00:00 76 /min Universi [facility] Body temperature 2019-11-15 14:00:00 36.89 Qian [facility] Respiratory rate 2019-11-15 14:00:00 16 /min [facility] Body height 2019-11-15 14:00:00 162.6 cm Universi [facility] Body weight 2019-11-15 14:00:00 135.739 kg [facility] BMI 2019-11-15 14:00:00 51.37 kg/m2 [facility] Systolic blood 2019-09-27 16:12:00 121 mm[Hg] [facility] Diastolic blood 2019-09-27 16:12:00 83 mm[Hg] Unive rsity of pressure [facility] Heart rate 2019-09-27 16:12:00 86 /min Universi [facility] of [facility] Body temperature 2019-09-27 16:12:00 36.44 Qian [facility] Respiratory rate 2019-09-27 16:12:00 16 /min [facility] Body height 2019-09-27 16:12:00 162.6 cm [facility]i [facility] Body weight 2019-09-27 16:12:00 144.896 kg [facility] BMI 2019-09-27 16:12:00 54.83 kg/m2 [facility] Systolic blood 2019-09-22 19:44:00 117 mm[Hg] [facility] of [facility] Diastolic blood 2019-09-22 19:44:00 75 mm[Hg] Unive rsity of pressure [facility] Heart rate 2019-09-22 19:44:00 95 /min Universi [facility] of [facility] Body temperature 2019-09-22 19:44:00 36.78 Qian [facility] Respiratory rate 2019-09-22 19:44:00 18 /min [facility] Oxygen saturation in 2019-09-22 19:44:00 98 /min [facility] Arterial blood by [facility] Pulse oximetry Branch Body height 2019-09-20 15:41:00 162.6 cm Universi [facility] Body weight 2019-09-20 15:41:00 152.862 kg [facility] BMI 2019-09-20 15:41:00 57.85 kg/m2 [facility] Systolic blood 2019-09-14 14:16:00 134 mm[Hg] [facility]iver [facility] Diastolic blood 2019-09-14 14:16:00 89 mm[Hg] [facility]ive [facility]ity of [facility] Heart rate 2019-09-14 14:16:00 87 /min Universi [facility] Body temperature 2019-09-14 14:16:00 36.56 Qian [facility] Respiratory rate 2019-09-14 14:16:00 16 /min [facility] Body height 2019-09-14 14:16:00 162.6 cm Universi [facility] of [facility] Body weight 2019-09-14 14:16:00 149.29 kg [facility]i [facility] of [facility] BMI 2019-09-14 14:16:00 56.49 kg/m2 [facility] Systolic blood 2019-09-08 15:34:00 131 mm[Hg] [facility] Diastolic blood 2019-09-08 15:34:00 83 mm[Hg] Unive rsity of pressure [facility] Heart rate 2019-09-08 15:34:00 85 /min Universi [facility] of [facility] Body temperature 2019-09-08 15:34:00 36.11 Qian [facility] Respiratory rate 2019-09-08 15:34:00 16 /min [facility] Body height 2019-09-08 15:34:00 162.6 cm Universi [facility] of [facility] Body weight 2019-09-08 15:34:00 149.007 kg [facility] BMI 2019-09-08 15:34:00 56.39 kg/m2 [facility] Systolic blood 2019-09-01 14:31:00 92 mm[Hg] [facility] Diastolic blood 2019-09-01 14:31:00 64 mm[Hg] [facility] Heart rate 2019-09-01 14:25:00 81 /min [facility] Body temperature 2019-09-01 14:25:00 36.22 Qian [facility] Respiratory rate 2019-09-01 14:25:00 16 /min [facility] Body height 2019-09-01 14:25:00 162.6 cm [facility] Body weight 2019-09-01 14:25:00 147.589 kg [facility] BMI 2019-09-01 14:25:00 55.85 kg/m2 [facility] Systolic blood 2019-08-17 17:31:00 118 mm[Hg] [facility] Diastolic blood 2019-08-17 17:31:00 74 mm[Hg] [facility] Heart rate 2019-08-17 17:20:00 120 /min [facility] Body temperature 2019-08-17 17:20:00 36.67 Qian [facility] Respiratory rate 2019-08-17 17:20:00 16 /min [facility] Body height 2019-08-17 17:20:00 162.6 cm [facility] Body weight 2019-08-17 17:20:00 147.476 kg [facility] BMI 2019-08-17 17:20:00 55.81 kg/m2 [facility] Systolic blood 2019-08-04 15:33:00 137 mm[Hg] [facility] Diastolic blood 2019-08-04 15:33:00 90 mm[Hg] [facility] Heart rate 2019-08-04 15:33:00 92 /min [facility] Body temperature 2019-08-04 15:33:00 36.83 Qian [facility] Respiratory rate 2019-08-04 15:33:00 16 /min [facility] Body height 2019-08-04 15:33:00 162.6 cm [facility] Body weight 2019-08-04 15:33:00 144.697 kg [facility] BMI 2019-08-04 15:33:00 54.76 kg/m2 [facility] Systolic blood 2019-03-21 14:31:00 130 mm[Hg] [facility] Diastolic blood 2019-03-21 14:31:00 80 mm[Hg] [facility] Heart rate 2019-03-21 14:31:00 89 /min [facility] Body temperature 2019-03-21 14:31:00 36.39 Qian [facility] Respiratory rate 2019-03-21 14:31:00 16 /min [facility] Body weight 2019-03-21 14:31:00 138.064 kg [facility] BMI 2019-03-21 14:31:00 52.25 kg/m2 [facility] Systolic blood 2019-02-24 15:04:00 128 mm[Hg] [facility] Diastolic blood 2019-02-24 15:04:00 80 mm[Hg] [facility] Heart rate 2019-02-24 15:04:00 75 /min [facility] Body temperature 2019-02-24 15:04:00 36.61 Qian [facility] Respiratory rate 2019-02-24 15:04:00 18 /min [facility] Body height 2019-02-24 15:04:00 162.6 cm [facility] Body weight 2019-02-24 15:04:00 138.517 kg [facility] BMI 2019-02-24 15:04:00 52.42 kg/m2 [facility] Systolic blood 2019-01-26 15:20:00 114 mm[Hg] [facility] Diastolic blood 2019-01-26 15:20:00 62 mm[Hg] [facility] Heart rate 2019-01-26 15:15:00 117 /min [facility] Body temperature 2019-01-26 15:15:00 36.94 Qian [facility] Respiratory rate 2019-01-26 15:15:00 16 /min [facility] Body height 2019-01-26 15:15:00 162.6 cm [facility] Body weight 2019-01-26 15:15:00 136.589 kg [facility] BMI 2019-01-26 15:15:00 51.69 kg/m2 [facility] Procedures Procedure Date / Time Performing Clinician Source Performed [id number] 2021-05-28 00:00:00 EKHOB [facility] DISMISSAL OF PATIENT 2020-08-09 06:01:00 Doctor Unassigned, [facility] CORRESPONDENCE [place] [facility] POCT TEST 2020-02-09 13:59:00 Lindy Godwin [facility] POCT TEST 2020-02-02 14:21:00 Lindy Godwin [facility] ASSIGNMENT OF BENEFITS 2020-02-02 13:54:27 Doctor Unassigned, [facility] [place] [facility] [place] POCT TEST 2019-11-15 14:06:00 Yolanda Ruano [facility] CBC WITH DIFFERENTIAL 2019-09-21 07:51:00 Vincent Mukherjee [facility] CORD GAS 2019-09-20 23:55:00 Kortney Molina [facility] SECTION 2019-09-20 22:13:00 Arleen Pineda [facility] URINALYSIS 2019-09-20 16:33:00 Kortney Molina [facility] PROTEIN CREAT RATIO URINE 2019-09-20 16:33:00 Kortney Molina [facility] SGOT (ASPARTATE AMINO 2019-09-20 16:32:00 Kortney Molina [facility] TRANSFER) Medical Branch CREATININE 2019-09-20 16:32:00 Kortney Molina [facility] ALANINE AMINO 2019-09-20 16:32:00 Kortney Molina [facility] TRANSFERASE(SGPT Medical Branch LACTATE DEHYDROGENASE 2019-09-20 16:32:00 Kortney Molina [facility] URIC ACID 2019-09-20 16:32:00 [facility] WITH DIFFERENTIAL 2019-09-20 16:32:00 Richy Molinahanie [facility] HEPATITIS B SURFACE 2019-09-20 16:32:00 Jesse Kortney [facility] ANTIGEN [facility] GALV ONLY - SYPHILIS 2019-09-20 16:32:00 Jesse [facility] IGG/IGM [facility] PANEL IDENTIFICATION 2019-09-20 15:54:00 Christine Brady [facility] HB ABO GROUPING 2019-09-20 15:54:00 [facility] IMMUNE GLOBULIN 2019-09-20 15:54:00 Tita Dee [facility] HOSPITAL ADMISSION 2019-09-20 05:01:00 Doctor Unassigned, [facility] [place] [facility] POCT URINALYSIS 2019-09-14 14:17:00 Lindy [facility] POCT URINALYSIS 2019-09-08 15:35:00 Lindy Godwin [facility] POCT URINALYSIS 2019-09-01 14:27:00 Lindy Godwin [facility] PANEL IDENTIFICATION 2019-08-04 15:42:00 [facility] GROUP[facility] 2019-08-04 15:42:00 Lindy [facility]win [facility] ANTIBODY TITER INTERPS 2019-08-04 15:42:00 Lindy Godwin [facility] POCT URINALYSIS W/O 2019-08-04 15:38:00 Lindy Godwin [facility] SPECIFIC GRAVITY [facility] POCT URINALYSIS 2019-03-21 14:33:00 Lindy [facility]win [facility] PANEL IDENTIFICATION 2019-02-24 15:22:00 Rehana Hinds [facility] WORKUP, BLOOD 2019-02-24 15:22:00 Rehana Hinds [facility] ANTIBODY TITER INTERPS 2019-02-24 15:22:00 Rehana Hinds [facility] POCT URINALYSIS 2019-02-24 15:07:00 Lindy [facility]win [facility] URINE CULTURE 2019-01-26 16:35:00 Lindy Godwin [facility] GC & CHLAMYDIA AMPLIFIED 2019-01-26 16:35:00 Lindy Godwin [facility] ASSAY [facility] LAB ONLY PAP SMEAR-LIQUID 2019-01-26 16:35:00 Lindy Godwin [facility] PAP SMEAR-LIQUID BASED-CP 2019-01-26 16:35:00 Lindy Godwin [facility] GLUCOSE 1 HOUR POST 2019-01-26 16:23:00 Lindy Godwin [facility] CBC WITH DIFFERENTIAL 2019-01-26 16:23:00 Lindy Godwin [facility] RUBELLA SCREEN IGG 2019-01-26 16:23:00 Lindy Godwin [facility] VZV ANTIBODY SCREEN 2019-01-26 16:23:00 Lindy Godwin [facility] HEPATITIS B SURFACE 2019-01-26 16:23:00 Lindy Godwin [facility] HCV ANTIBODY 2019-01-26 16:23:00 Lindy [facility]win [facility] ANTIGEN TYPING PATIENT 2019-01-26 16:23:00 Lindy Godwin [facility] PANEL IDENTIFICATION 2019-01-26 16:23:00 [facility] 2019-01-26 16:23:00 Lindy Godwin [facility] ANTIBODY TITER INTERPS 2019-01-26 16:23:00 Lindy Godwin [facility] HIV 1/2 AG-AB WITH REFLEX 2019-01-26 16:23:00 Lindy Godwin [facility] GALV ONLY - SYPHILIS 2019-01-26 16:23:00 Lindy Godwin [facility] [place] IGG/IGM [facility] POCT TEST 2019-01-26 15:27:00 Lindy Godwin [facility] POCT URINALYSIS W/O 2019-01-26 15:27:00 Lindy Godwin [facility] Encounters Start End Encounter Admission Attending Care Care Encounter Source Date/Time Date/Time Type Type Clinicians Facility Department ID 2021-05-27 Inpatient EL Ekhaese, HCABM DAYS [id number] [facility] 10:00:00 [place] [id number] [facility] 2021-05-09 Outpatient P [facility] MCKENNA [id number] Univers 13:32:45 ity [facility] 2021-04-04 Inpatient EL Ekhaese, HCABM DAYS [id number] [facility] 16:00:00 [place] [id number] [facility] 2021-02-20 Inpatient EL Albina, HCAPM SUNNI [id number] [facility] 12:00:00 [place] [id number] [facility] 2021-05-29 2021-05-30 Inpatient EL Ekhaese, HCABM SURG [id number] [facility] 10:48:00 13:18:00 [place] 18 [facility] 2021-05-29 2021-05-30 Inpatient EL Ekhaese, HCABM SURG [id number] [facility] 10:48:00 13:18:00 [place] [id number] [facility] 2021-05-28 2021-05-28 Inpatient EL Ekhaese, HCABM SURG [id number] [facility] 15:36:00 07:00:00 [place] [id number] [facility] 2021-05-21 2021-05-21 Outpatient Ekhaese, HCACL LABO [id number] [facility] 17:32:00 17:32:00 [place] [id number] [facility] 2021-04-04 2021-04-04 Outpatient EL Ekhaese, HCABM DAYS [id number] [facility] 08:00:00 08:00:00 [place] 91 [facility] 2021-03-29 2021-03-29 Outpatient Ekhaese, HCACL LABO [id number] [facility] 11:40:00 11:40:00 [place] [id number] [facility] 2021-02-21 2021-02-21 Outpatient DIAMOND Montemayor, HCAPM DAYS [id number] [facility] 11:01:00 11:01:00 [place] [id number] [facility] 2021-02-21 2021-02-21 Outpatient DIAMOND Montemayor, HCAPM HCAPM [id number] [facility] 11:01:00 11:01:00 [place] 07 [facility] 2021-01-23 2021-01-23 Outpatient DIAMOND Yeboah, HCABM DIAB [id number] [facility] 09:14:00 09:14:00 [place] [id number] [facility] 2020-11-07 2020-11-07 Outpatient R AKINSIPE, [facility] [id number] Univers 08:15:00 08:15:00 LINDY [id number] [facility] 2020-11-07 2020-11-07 Outpatient R AKINS[place], [facility] [id number] Univers 08:15:00 08:15:00 LINDY haddad [facility] 2020-08-09 2020-08-09 Office Akinsipe, [facility] [id number] 08:55:29 10:04:43 Visit Lindy Trinh INFORMATION SERVICES VICE PRESIDENT [id number] [facility] [id number] MATERNAL [id number] & CHILD [address] [place] [address] 2020-08-09 2020-08-09 Office [place], [facility] [id number] Univers 08:55:29 10:04:43 Visit Lindy Trinh INFORMATION SERVICES VICE PRESIDENT [id number] [facility] [id number] Han as MATERNAL [id number] Med ical & CHILD [address] [place] [address] 2020-08-09 2020-08-09 Outpatient R AKINSIPE, [facility] [id number] Univers 09:15:00 09:15:00 LINDY [id number] ity o f [facility] 2020-08-09 2020-08-09 Outpatient R TATO, [facility] [id number] Univers 09:15:00 09:15:00 LINDY ity o f [facility] 2020-08-09 2020-08-09 Orders Doctor CHANDA [id number] Univers 00:00:00 00:00:00 Only Unassigned, B[place] [id number] ity of [place] [facility] [id number] Han as [phone] [address] 2020-04-06 2020-04-06 Office Tato, [facility] [id number] Univers 08:07:21 08:42:27 Visit Lindy Trinh INFORMATION SERVICES VICE PRESIDENT [id number] ity of [facility] [id number] Han as MATERNAL [phone] Med ical & CHILD [address] [place] [address] 2020-04-06 2020-04-06 Outpatient R AKINSIPE, [facility] [id number] Univers 08:15:00 08:15:00 LINDY [id number] ity o [facility] 2020-04-06 2020-04-06 Outpatient R AKINSIPE, [facility] [id number] Univers 08:15:00 08:15:00 LINDY ity o [facility] 2020-02-23 2020-02-23 [facility] [id number] Univers 08:06:22 08:56:47 Visit Lindy Gayathri INFORMATION SERVICES VICE PRESIDENT [id number] ity of [facility] [id number] Han as MATERNAL [id number] [facility] [address] [place] [address] 2020-02-23 2020-02-23 Outpatient R AKINSIPE, [facility] [id number] Univers 08:15:00 08:15:00 LINDY [id number] ity o [facility] 2020-02-23 2020-02-23 Outpatient R AKINSIPE, [facility] [id number] Univers 08:15:00 08:15:00 LINDY ity o f [facility] 2020-02-09 2020-02-09 Office [place], [facility] [id number] Univers 08:32:42 09:40:[address] [facility] INFORMATION SERVICES VICE PRESIDENT [id number] ity [facility] [id number] Han as MATERNAL [id number] [facility] [address] [place] [address] 2020-02-09 2020-02-09 Outpatient R AKINSIPE, [facility] [id number] Univers 08:30:00 08:30:00 LINDY ity o f [facility] 2020-02-09 2020-02-09 Outpatient R AKINSIPE, [facility] [id number] Univers 08:30:00 08:30:00 LINDY ity o f [facility] 2020-02-07 2020-02-07 Outpatient R [facility] [id number] Univers 08:30:00 08:30:00 [id number] ity of [facility] 2020-02-07 2020-02-07 Outpatient R [facility] [id number] Univers 08:30:00 08:30:00 ity of [facility] 2020-02-02 2020-02-02 Office [place], [facility] [id number] Univers 08:50:24 09:55:[address] [facility] INFORMATION SERVICES VICE PRESIDENT [id number] ity [facility] [id number] Han as MATERNAL [phone] [facility] & [address] 2020-02-02 2020-02-02 Outpatient R AKINSIPE, [facility] [id number] Univers 08:15:00 08:15:00 LINDY [id number] ity o f [facility] 2020-02-02 2020-02-02 Outpatient R AKINSIPE, [facility] [id number] Univers 08:15:00 08:15:00 LINDY ity o f [facility] 2020-02-02 2020-02-02 Orders Doctor ARMAS [id number] Univers 00:00:00 00:00:00 Only Unassigned, BJ [id number] ity of [facility] [id number] Han as [phone] [address] 2020-01-17 2020-01-17 Telephone Tato [facility] [id number] Univers 00:00:00 00:00:00 Lindy Trinh INFORMATION SERVICES VICE PRESIDENT [id number] ity of [facility] [id number] Han as MATERNAL [id number] [facility] ical & CHILD [address] [place] [address] 2019-11-15 2019-11-15 Nurse Visit, [facility] Nurse [facility] [id number] Univers 08:58:04 09:22:08 Visit Lindy Godwin INFORMATION SERVICES VICE PRESIDENT [id number] ity of [facility] [id number] Han as MATERNAL [id number] [address] 2019-11-15 2019-11-15 Outpatient R [facility] [id number] Univers 09:00:00 09:00:00 ity [facility] 2019-11-15 2019-11-15 Outpatient R [facility] [id number] Univers 09:00:00 09:00:00 ity [facility] 2019-11-02 2019-11-02 Outpatient R TATO [facility] [id number] Univers 08:00:00 08:00:00 LINDY [id number] ity o f [facility] 2019-11-02 2019-11-02 Outpatient R TATO [facility] [id number] Univers 08:00:00 08:00:00 LINDY noyolay o f [facility] 2019-11-01 2019-11-01 Telemedici Tato [facility] [id number] Univers 10:02:16 10:10:30 ne Visit Lindy Trinh INFORMATION SERVICES VICE PRESIDENT [id number] ity of [facility] [id number] Han as MATERNAL [id number] [facility] [address] [place] [address] 2019-11-01 2019-11-01 Outpatient R TATO [facility] [id number] Univers 10:00:00 10:00:00 LINDY [id number] ity o [facility] 2019-11-01 2019-11-01 Outpatient R LISAAURELIANO, [facility] [id number] Univers 10:00:00 10:00:00 LINDY jazmínhawk o [facility] 2019-10-12 2019-10-12 [facility]ici [facility] 1.2.840.114 [id number] Univers 08:05:41 09:57:15 ne Visit Lindy Trinh INFORMATION SERVICES VICE PRESIDENT [id number] ity of [facility] [id number] Han as MATERNAL [phone] [facility] & [address] 2019-10-12 2019-10-12 Outpatient R TATO, [facility] [id number] [id number] Univers 09:45:00 09:45:00 LINDY [id number] candy o [facility] 2019-10-12 2019-10-12 Outpatient R NINALEAHAURELIANO, [facility] [id number] Univers 09:45:00 09:45:00 LINDY haddad [facility] 2019-09-27 2019-09-27 Nurse Visit, [facility] Nurse [facility] 1.2 .840.114 [id number] Univers 11:02:50 11:23:37 Visit Lindy Godwin INFORMATION SERVICES VICE PRESIDENT [id number]. 10 ity of [facility] [id number] Han as MATERNAL [phone] [address] 2019-09-27 2019-09-27 Outpatient R LISAAURELIANO, [facility] [id number] Univers 11:00:00 11:00:00 LINDY ithawk o [facility] 2019-09-20 2019-09-22 Hospital Rachel ARMAS 1.2.840.114 [id number] Univers 10:19:00 16:00:00 Encounter Jorge LORENZO [id number] ity of [facility] [id number] Han as [phone] [address] 2019-09-21 2019-09-21 Outpatient R AKINLEATHA, [facility] [id number] [id number] Univers 08:00:00 08:00:00 LINDY [id number] ity o f [facility] 2019-09-21 2019-09-21 Outpatient R TATO, [facility] [id number] Univers 08:00:00 08:00:00 LINDY ity o f [facility] 2019-09-20 2019-09-20 Orders Doctor CHANDA 1.2.840.114 [id number] Univers 00:00:00 00:00:00 Only Unassigned, BJ 350.1.13.10 ity of [place] [facility] 4.2.7.2.686 Han as [phone] [address] 2019-09-15 2019-09-15 Outpatient R TATO, [facility] [id number] [id number] Univers 08:15:00 08:15:00 LINDY ity o f [facility] 2019-09-14 2019-09-14 Routine [facility] [id number] Univers 07:59:23 08:34:31 Lindy C INFORMATION SERVICES VICE PRESIDENT [id number] ity of Visit [facility] [id number] Han as MATERNAL [phone] Med ical & CHILD [address] [place] [address] 2019-09-14 2019-09-14 Outpatient R AKINLEAHPE, [facility] [id number] [id number] Univers 08:00:00 08:00:00 LINDY ity o f [facility] 2019-09-14 2019-09-14 Outpatient R LISAPE, [facility] [id number] Univers 08:00:00 08:00:00 LINDY ity o f [facility] 2019-09-08 2019-09-08 Routine Akinsipe, [facility] [id number] Univers 08:56:52 09:51:11 Lindy C INFORMATION SERVICES VICE PRESIDENT [id number] ity of Visit REGIONAL [id number] Han as MATERNAL [phone] [facility] ical & CHILD [address] [place] [address] 2019-09-08 2019-09-08 [facility] [id number] Univers 09:00:00 09:00:00 LINDY ity o f [facility] 2019-09-02 2019-09-02 Abstract Tato [facility] 1.2.840.114 [id number] Univers 00:00:00 00:00:00 Lindy C INFORMATION SERVICES VICE PRESIDENT [id number] ity of REGIONAL [id number] Han as MATERNAL [phone] [facility] ical & CHILD [address] [place] [address] 2019-09-01 2019-09-01 Manager Portable Ultrasound, [facility] 1.2 .840.114 [id number] [facility] 09:04:51 09:34:51 Visit Ninasiaureliano Lindy C INFORMATION SERVICES VICE PRESIDENT 350.1.13. 10 ity of [place] Patricio REGIONAL [id number] [place] MATERNAL [phone] [facility] ical & CHILD [address] [facility] 2019-09-01 2019-09-01 Routine Tato, [facility] [id number] Univers 07:51:10 09:03:14 Lindy C INFORMATION SERVICES VICE PRESIDENT [id number] ity of Visit REGIONAL [id number] Han as MATERNAL [phone] [facility] [address] [place] [address] 2019-08-17 2019-08-17 Routine Tato, [facility] 1.2.444.004 [id number] Univers 10:53:54 11:43:25 Lindy C INFORMATION SERVICES VICE PRESIDENT [id number] ity of Visit REGIONAL [id number] Han as MATERNAL [phone] [facility] ical & CHILD [address] [place] [address] 2019-08-04 2019-08-09 Routine Akinsipe, [facility] 1.2.286.316 [id number] Univers 09:14:38 10:20:44 Lindy C INFORMATION SERVICES VICE PRESIDENT [id number] ity of Visit REGIONAL [id number] Han as MATERNAL [phone] [facility] ical & CHILD [address] [place] [address] 2019-08-09 2019-08-09 Telephone Tato, [facility] 1.2.840.114 [id number] Univers 00:00:00 00:00:00 Lindy C INFORMATION SERVICES VICE PRESIDENT [id number] ity of REGIONAL [id number] Han as MATERNAL [phone] Med ical & CHILD [address] [place] [address] 2019-08-09 2019-08-09 Abstract [facility] 1.2.840.114 [id number] Univers 00:00:00 00:00:00 Lindy C INFORMATION SERVICES VICE PRESIDENT [id number] ity of REGIONAL [id number] Han as MATERNAL [phone] [facility] ical & CHILD [address] [place] [address] 2019-08-05 2019-08-05 Telephone [facility] 1.2.840.114 [id number] Univers 00:00:00 00:00:00 Lindy C INFORMATION SERVICES VICE PRESIDENT [id number] ity of REGIONAL [id number] Han as MATERNAL [phone] [facility] & CHILD [address] [place] [address] 2019-07-11 2019-07-12 Outpatient P [facility] MCKENNA [id number] Univers 20:27:51 03:01:00 CHRISTINA gupta [facility] 2019-03-21 2019-03-21 Routine Faculty, Huan Romero [facility] 1.2 .840.114 [id number] Univers 09:23:05 10:17:43 Mike Mace INFORMATION SERVICES VICE PRESIDENT [id number] ity of Visit REGIONAL [id number] Han as MATERNAL [phone] [facility] [address] [place] [address] 2019-03-07 2019-03-07 Telephone [facility] 1.2.004.951 [id number] Univers 00:00:00 00:00:00 Leon INFORMATION SERVICES VICE PRESIDENT [id number] ity of p/High REGIONAL [id number] Han as MATERNAL [phone] [facility] ical & CHILD [address] [place] [address] 2019-03-04 2019-03-04 CHANDA Arguello 1.2.840.114 [id number] Univers 00:00:00 00:00:00 Management Aubree BJ 350.1.13.10 ity of HOSPITAL 4.2.7.2.686 Han as [phone] [address] 2019-02-25 2019-02-25 Telephone Tato [facility] 1.2.840.114 [id number] Univers 00:00:00 00:00:00 Lindy C INFORMATION SERVICES VICE PRESIDENT [id number] ity of [facility] [id number] Han as MATERNAL [phone] Med ical & CHILD [address] [place] [address] 2019-02-24 2019-02-24 Routine Risk, Nzk-Gpkcq-Xd/High [facility] 1. 2.840.114 [id number] [facility] 09:47:59 10:32:25 Rehana Hinds INFORMATION SERVICES VICE PRESIDENT [id number] ity of Visit [facility] [id number] Han as MATERNAL [phone] [facility] ical & CHILD [address] [place] [address] 2019-02-17 2019-02-17 Abstract Tato, [facility] 1.2.840.114 [id number] Univers 00:00:00 00:00:00 Lindy C INFORMATION SERVICES VICE PRESIDENT [id number] ity of [facility] [id number] Han as MATERNAL [phone] [facility] [address] [place] [address] 2019-02-16 2019-02-16 Manager Portable Ultrasound, Rosie [facility] 1.2 .840.114 [id number] Univers 10:03:47 10:39:43 Visit Randolph Szymanski INFORMATION SERVICES VICE PRESIDENT [id number] ity of REGIONAL [id number] Han as MATERNAL [phone] Med ical & CHILD [address] [facility] 2019-02-09 2019-02-09 Telephone Ninaaureliano [facility] 1.2.840.114 [id number] Univers 00:00:00 00:00:00 Lindy C INFORMATION SERVICES VICE PRESIDENT [id number] ity of REGIONAL [id number] Han as MATERNAL [phone] Med ical & CHILD [address] [place] [address] 2019-01-26 2019-02-08 Initial Akinleatha, [facility] 1.2.430.528 [id number] Univers 09:47:56 13:19:30 Lindy Trinh INFORMATION SERVICES VICE PRESIDENT [id number] ity of Visit [facility] [id number] Han as MATERNAL [phone] Med ical & CHILD [address] [place] [address] Results Test Description Test Time Test Comments Results Result Comments Source CBC W/AUTO DIFF 2021-05-29 10:24:00 Test Item Value Reference Range Interpretation Comme nts WHITE BLOOD CELL (test code = WBC) 9.9 K/mm3 4.5-12.5 N RED BLOOD CELL (test code = RBC) 5.08 mill/mm3 3.7-5.2 N HEMOGLOBIN (test code = HGB) 13.0 gram/dL 11.5-15.5 N HEMATOCRIT (test code = HCT) 41.9 % 36.0-46.0 N MEAN CELL VOLUME (test code = MCV) 82.5 fL 80-98 N MEAN CELL HGB (test code = MCH) 25.6 picogram 27.0-33.0 L MEAN CELL HGB CONCETRATION (test code = MCHC) 31.0 gram/dL 33.0-36. 0 L RED CELL DISTRIBUTION WIDTH (test code = RDW) 14.0 % 11.6-16. 2 N RED CELL DISTRIBUTION WIDTH SD (test code = RDW-SD) 41.1 fL 37 .0-51.0 N PLATELET COUNT (test code = PLT) 267 K/mm3 150-450 N MEAN PLATELET VOLUME (test code = MPV) 9.9 fL 6.7-11.0 N NEUTROPHIL % (test code = NT%) 79.1 % 39.0-69.0 H IMMATURE GRANULOCYTE % (test code = IG%) 0.4 % 0.0-5.0 N LYMPHOCYTE % (test code = LY%) 12.4 % 25.0-55.0 L MONOCYTE % (test code = MO%) 7.9 % 0.0-10.0 N EOSINOPHIL % (test code = EO%) 0.0 % 0.0-5.0 N BASOPHIL % (test code = BA%) 0.2 % 0.0-1.0 N NUCLEATED RBC % (test code = NRBC%) 0.0 % 0-0 N NEUTROPHIL # (test code = NT#) 7.80 K/mm3 1.8-7.7 H IMMATURE GRANULOCYTE # (test code = IG#) 0.04 x10 3/uL 0-0.03 H LYMPHOCYTE # (test code = LY#) 1.22 K/mm3 1.0-5.0 N MONOCYTE # (test code = MO#) 0.78 K/mm3 0-0.8 N EOSINOPHIL # (test code = EO#) 0.00 K/mm3 0.0-0.5 N BASOPHIL # (test code = BA#) 0.02 K/mm3 0.0-0.2 N NUCLEATED RBC # (test code = NRBC#) 0.00 K/mm3 0.0-0.1 N MANUAL DIFF REQUIRED (test code = MDIFF) NO BASIC METABOLIC [id number] 05:40:00 Test Item Value Reference Range Interpretation Comments SODIUM (test code = 135 mmol/L 136-145 L NA) POTASSIUM (test code 4.7 mmol/L 3.5-5.1 N = K) CHLORIDE (test code 104.0 mmol/L 98-107 N = CL) CARBON DIOXIDE (test 18.0 mmol/L 21-32 L code = CO2) ANION GAP (test code 17.7 10-20 N = GAP) GLUCOSE (test code = 102 mg/dL 74-106 N GLU) BLOOD UREA NITROGEN 7 mg/dL 7-18 N (test code = BUN) GLOMERULAR > 60 mL/min See_Comment Estimated GFR b y FILTRATION RATE using Modifi ed MDRD (test code = GFR) formula. ron kidney disease is defined as eith er kidney damageor GFR <60 mL/min/1.73 m2 for >3 months. [Automated mess age] The system Event[employer] generated this result transmitted ref erence range: >=60. Th e reference range was not used to int erpret this result as normal/abnormal . CREATININE (test 0.70 mg/dL 0.55-1.02 N Note harper ge in code = CREAT) reference rang e due to change in reagent. 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 Positiv e results do not rule out bacterial infection or co -infection with other viru ses. Negative result s do not preclude SARS-C oV-2 infection andsh ould not be used as the rafa e basis for patient managementdecis ions. Negative result s must be combined with otherclinical observations, p atient history, and epidemiological information . Detection of SARS-CoV-2 RNA may be affe cted bysample collec tion methods, storag e conditions, and /or stageof infection. Jennifer l RNA mutations, vacc inations, antiviraltherap eutics, antibiotics, chemotherapeuti c orimmunosuppres [place] drugs have not been e valuated for effectson d etection. Results are for the identification of SARS-CoV-2 RNA usingreal-time (RT) polymerase rufina n reaction (PCR) technolog yfor the qualitative det ection of nucleic acids f rom [id number] v irus and diagnosis of SA RS-CoV-2 virusinfection. It is an Emergency Use Authorization ( EUA) testauthorized by the U.S. FDA. Novel Coronavirus 21:37:00 Test Item Value Reference Range Interpretation Comments Novel Coronavirus Negative Negative Positive r esults are 2019 Inhouse (test indicativ e of the presence code = [id number]) ofSARS-CoV -2 RNA, clinical correlation wit h patient historyand othe r diagnostic info rmation is necessary to determinepatien t infection status. Positiv e results do not rule out bacterial infection or co -infection with other viru ses. Negative result s do not preclude SARS-C oV-2 infection andsh ould not be used as the rafa e basis for patient managementdecis ions. Negative result s must be combined with otherclinical observations, p atient history, and epidemiological information . Detection of SARS-CoV-2 RNA may be affe cted bysample collec tion methods, storag e conditions, and /or stageof infection. Jennifer l RNA mutations, vacc inations, antiviraltherap eutics, antibiotics, chemotherapeuti c orimmunosuppres [place] drugs have not been e valuated for effectson d etection. Results are for the identification of SARS-CoV-2 RNA usingreal-time (RT) polymerase rufina n reaction (PCR) technolog yfor the qualitative det ection of nucleic acids f rom [id number] v irus and diagnosis of SA RS-CoV-2 virusinfection. It is an Emergency Use Authorization ( EUA) testauthorized by the U.S. FDA. HCG SERUM [id number] 14:33:00 Test Item Value Reference Range Interpretation Comments HCG SERUM QUAL (test NEGATIVE NEGATIVE This HC GQL test is NOT code = HCGQL) applicable for MALE patients.Check with nurse about probable order error.If Tumor Marker Test needed, nu rse should order test "HCG TU"(Test #[id number])---- - COMPREHENSIVE METABOLIC [id number] 12:50:00 Test Item Value Reference Range Interpretation Comments SODIUM (test code = 138 mmol/L 136-145 N NA) POTASSIUM (test code 3.9 mmol/L 3.5-5.1 N = K) CHLORIDE (test code = 101.0 mmol/L 98-107 N CL) CARBON DIOXIDE (test 29.0 mmol/L 21-32 N code = CO2) ANION GAP (test code 11.9 10-20 N = GAP) GLUCOSE (test code = 87 mg/dL 74-106 N GLU) BLOOD UREA NITROGEN 10 mg/dL 7-18 N (test code = BUN) GLOMERULAR FILTRATION > 60 mL/min See_Comment Estima ling GFR by RATE (test code = using Refugio fied MDRD GFR) formula.Chronic kidney disease is defined as eith er kidney damageor GFR <60 mL/min/1.73 m2 for >3 months. [Automated mess age] The system Event[employer] generated this result transmit ling reference range : >=60. The refer ence range was not u sed to interpret th is result as normal/abnormal . CREATININE (test code 0.90 mg/dL 0.55-1.02 N Note change in = CREAT) reference range due to change in reagent. BUN/CREATININE RATIO 11.5 10-20 N (test code = BUN/CREA) TOTAL PROTEIN (test 7.3 gram/dL 6.4-8.2 N code = PROT) ALBUMIN (test code = 4.4 g/dL 3.4-5.0 N ALB) GLOBULIN (test code = 2.9 gram/dL 2.7-4.2 N GLOB) ALBUMIN/GLOBULIN 1.5 0.75-1.50 N RATIO (test code = A/G) CALCIUM (test code = 9.6 mg/dL 8.5-10.1 N CA) BILIRUBIN TOTAL (test 0.50 mg/dL 0.0-1.0 N code = BILT) SGOT/AST (test code = 26 IUnit/L 15-37 N AST) SGPT/ALT (test code = 32 IUnit/L 12-78 N ALT) ALKALINE PHOSPHATASE 90 IUnit/L 45-117 N Note change in TOTAL (test code = reference range due ALKP) to change in reagent. PROTHROMBIN [id number] 12:31:00 Test Item Value Reference Range Interpretation Comments PROTHROMBIN TIME 13.2 seconds 9.0-14.0 N PATIENT (test code = PTP) INTERNATIONAL NORMAL 1.2 0.8-1.2 N The the rapeutic range RATIO (test code = for oral INR) anticoagulant t herapy formost indicat ions is an internati onal normalized rati o (INR)of between 2.0 and 3.0. The recommended therapeutic INR range for various cli nical situations is l isted below: Clinical Situat ion INR range Pulmonary embol ism treatment (2.0-3.0)Venou s thrombosis treatmentVenous thrombosis prophylaxis (hi gh risk surgery)Prevent ion of systemic emboli sm from: A cute myocardial infa rction Valvula r heart disease Atrial fibrilla tion Mechanical pros thetic heart valves (2.5-3.5) IS PATIENT ON ANTICOAGULANTS? NTHROMBOPLASTIN TIME [id number] 12:31:00 Test Item Value Reference Range Interpretation Comments THROMBOPLASTIN TIME PARTIAL 39.8 seconds 23.0-37.0 H (test code = PTT) IS PATIENT ON ANTICOAGULANTS? NCBC W/AUTO [id number] 12:20:00 Test Item Value Reference Range Interpretation Comments WHITE BLOOD CELL (test code = 6.6 K/mm3 4.5-12.5 N WBC) RED BLOOD CELL (test code = 5.53 mill/mm3 3.7-5.2 H RBC) HEMOGLOBIN (test code = HGB) 14.1 gram/dL 11.5-15.5 N HEMATOCRIT (test code = HCT) 45.5 % 36.0-46.0 N MEAN CELL VOLUME (test code = 82.3 fL 80-98 N MCV) MEAN CELL HGB (test code = MCH) 25.5 picogram 27.0-33.0 L MEAN CELL HGB CONCETRATION 31.0 gram/dL 33.0-36.0 L (test code = MCHC) RED CELL DISTRIBUTION WIDTH 13.6 % 11.6-16.2 N (test code = RDW) RED CELL DISTRIBUTION WIDTH SD 40.2 fL 37.0-51.0 N (test code = RDW-SD) PLATELET COUNT (test code = 311 K/mm3 150-450 N PLT) MEAN PLATELET VOLUME (test code 9.9 fL 6.7-11.0 N = MPV) NEUTROPHIL % (test code = NT%) 55.4 % 39.0-69.0 N IMMATURE GRANULOCYTE % (test 0.3 % 0.0-5.0 N code = IG%) LYMPHOCYTE % (test code = LY%) 31.1 % 25.0-55.0 N MONOCYTE % (test code = MO%) 10.6 % 0.0-10.0 H EOSINOPHIL % (test code = EO%) 2.0 % 0.0-5.0 N BASOPHIL % (test code = BA%) 0.6 % 0.0-1.0 N NUCLEATED RBC % (test code = 0.0 % 0-0 N NRBC%) NEUTROPHIL # (test code = NT#) 3.65 K/mm3 1.8-7.7 N IMMATURE GRANULOCYTE # (test 0.02 x10 3/uL 0-0.03 N code = IG#) LYMPHOCYTE # (test code = LY#) 2.05 K/mm3 1.0-5.0 N MONOCYTE # (test code = MO#) 0.70 K/mm3 0-0.8 N EOSINOPHIL # (test code = EO#) 0.13 K/mm3 0.0-0.5 N BASOPHIL # (test code = BA#) 0.04 K/mm3 0.0-0.2 N NUCLEATED RBC # (test code = 0.00 K/mm3 0.0-0.1 N NRBC#) MANUAL DIFF REQUIRED (test code NO = MDIFF) STOMACH,[id number] 13:40:00 Test Item Value Reference Range Interpretation Comments STOMACH,BIOPSY (test code = STOMBX) RUN DATE: 04/08/21 [place] [employer] [facility] PAGE 1 RUN TIME: 1341 Specimen Inquiry RUN USER: INTERFACE PATIENT: ANNIA MOSQUERA LOC: LUIS U #: [id number] AGE/SX: 30/F ROOM: RE04/04/21[facility]: Enrike Yeboah DO : 89 BED: DIS: STATUS: [facility] TLOC: SPEC #: [id number] RECD: 04/05/21 STATUS: HELEN BRITT #: [id number] CHERISE: 04/04/21-[address]: Enrike Yeboah I DO ENTERED: 04/05/21 SP TYPE: BX STOMACH OTHR DR: ORDERED: GROSS PROCEDURES: GROSS (04/08/21-114) TISSUES: 1. PYLORUS - COLD BX 2. G/E JUNCTION CLINICAL HISTORY COLLECTION DATE: 04/04/21 PRE BARIATRIC SURGERY FINAL DIAGNOSIS Pylorus biopsy: REACTIVE GASTROPATHY WITH MILD CHRONIC INFLAMMATION NO INTESTINAL METAPLASIA SEEN NEGATIVE FOR HELICOBACTER PYLORI BY GIEMSA STAIN NEGATIVE FOR MALIGNANCY G.E.-Junction, biopsy: MILD CHRONIC INFLAMMATION, GASTRIC MUCOSA SQUAMOUS ESOPHAGEAL MUCOSA WITH INCREASE IN THE HEIGHT OF THE PAPILLAE CONSISTENT WITH REFLUX NEGATIVE FOR INTESTINAL METAPLASIA, DYSPLASIA, AND MALIGNANCY DMW/sm D [id number], [id number] MACROSCOPIC The first specimen is received in formalin, labeled with the patient's name, identified as "pylorus bx", and consists of silva biopsy tissue measuring 0.3 cm, submitted as (1). The second specimen is received in formalin, labeled with the patient's name, identified as "g.e.-junction bx", and consists of silva biopsy tissue measuring 0.35 cm in aggregate, submitted as (2). CONTINUED ON NEXT PAGE RUN DATE: 04/08/21 [facility] PAGE 2 RUN TIME: 1341 Specimen Inquiry RUN USER: INTERFACE SPEC #: [id number] PATIENT: ANNIA MOSQUERA #[id number] (Continued) MACROSCOPIC (Continued) GROSS PERFORMED AT [facility] [address] [place] [address] [phone] MICROSCOPIC All of the stains, including any controls performed, stain appropriately. MICROSCOPIC PERFORMED AT [facility] [address] [place] [address], [place] [address] [phone] PERFORMING SITE Diagnosis performed at: [facility], [address] [place] [address] Signed SIGNATURE ON FILE Vee Garcia MD 04/08/21 1340 END OF REPORT Novel Coronavirus 16:19:00 Test Item Value Reference Range Interpretation Comments Novel Coronavirus Negative Negative Positive r esults are 2019 Inhouse (test indicativ e of the presence code = [id number]) ofSARS-CoV -2 RNA, clinical correlation wit h patient historyand othe r diagnostic info rmation is necessary to determinepatien t infection status. Positiv e results do not rule out bacterial infection or co -infection with other viru ses. Negative result s do not preclude SARS-C oV-2 infection andsh ould not be used as the rafa e basis for patient managementdecis ions. Negative result s must be combined with otherclinical observations, p atient history, and epidemiological information . Detection of SARS-CoV-2 RNA may be affe cted bysample collec tion methods, storag e conditions, and /or stageof infection. Jennifer l RNA mutations, vacc inations, antiviraltherap eutics, antibiotics, chemotherapeuti c orimmunosuppres [place] drugs have not been e valuated for effectson d etection. Results are for the identification of SARS-CoV-2 RNA usingreal-time (RT) polymerase rufina n reaction (PCR) technolog yfor the qualitative det ection of nucleic acids f rom [id number] v irus and diagnosis of SA RS-CoV-2 virusinfection. It is an Emergency Use Authorization ( EUA) testauthorized by the U.S. FDA. Novel Coronavirus 16:19:00 Test Item Value Reference Range Interpretation Comments Novel Coronavirus Negative Negative Positive r esults are 2019 Inhouse (test indicativ e of the presence code = [id number]) ofSARS-CoV -2 RNA, clinical correlation wit h patient historyand othe r diagnostic info rmation is necessary to determinepatien t infection status. Positiv e results do not rule out bacterial infection or co -infection with other viru ses. Negative result s do not preclude SARS-C oV-2 infection andsh ould not be used as the rafa e basis for patient managementdecis ions. Negative result s must be combined with otherclinical observations, p atient history, and epidemiological information . Detection of SARS-CoV-2 RNA may be affe cted bysample collec tion methods, storag e conditions, and /or stageof infection. Jennifer l RNA mutations, vacc inations, antiviraltherap eutics, antibiotics, chemotherapeuti c orimmunosuppres [place] drugs have not been e valuated for effectson d etection. Results are for the identification of SARS-CoV-2 RNA usingreal-time (RT) polymerase rufina n reaction (PCR) technolog yfor the qualitative det ection of nucleic acids f rom [id number] v irus and diagnosis of SA RS-CoV-2 virusinfection. It is an Emergency Use Authorization ( EUA) testauthorized by the U.S. FDA. COMPREHENSIVE METABOLIC [id number] 12:52:00 Test Item Value Reference Range Interpretation Comments SODIUM (test code = 138 mmol/L 136-145 N NA) POTASSIUM (test code 3.5 mmol/L 3.5-5.1 N = K) CHLORIDE (test code = 105.0 mmol/L 98-107 N CL) CARBON DIOXIDE (test 23.0 mmol/L 21-32 N code = CO2) ANION GAP (test code 13.5 10-20 N = GAP) GLUCOSE (test code = 155 mg/dL 74-106 H GLU) BLOOD UREA NITROGEN 14 mg/dL 7-18 N (test code = BUN) GLOMERULAR FILTRATION > 60 mL/min See_Comment Estima ling GFR by RATE (test code = using [place] fied MDRD GFR) formula.Chronic kidney disease is defined as eith er kidney damageor GFR <60 mL/min/1.73 m2 for >3 months. [Automated mess age] The system [employer] generated this result transmit ling reference range : >=60. The refer ence range was not u sed to interpret th is result as normal/abnormal . CREATININE (test code 0.80 mg/dL 0.55-1.02 N Note change in = CREAT) reference range due to change in reagent. BUN/CREATININE RATIO 17.9 10-20 N (test code = BUN/CREA) TOTAL PROTEIN (test 7.2 gram/dL 6.4-8.2 N code = PROT) ALBUMIN (test code = 4.0 g/dL 3.4-5.0 N ALB) GLOBULIN (test code = 3.2 gram/dL 2.7-4.2 N GLOB) ALBUMIN/GLOBULIN 1.2 0.75-1.50 N RATIO (test code = A/G) CALCIUM (test code = 9.5 mg/dL 8.5-10.1 N CA) BILIRUBIN TOTAL (test 0.50 mg/dL 0.0-1.0 N code = BILT) SGOT/AST (test code = 17 IUnit/L 15-37 N AST) SGPT/ALT (test code = 22 IUnit/L 12-78 N ALT) ALKALINE PHOSPHATASE 80 IUnit/L 45-117 N Note change in TOTAL (test code = reference range due ALKP) to change in reagent. URINALYSIS [id number] 12:39:00 Test Item Value Reference Range Interpretation Comments UA COLOR (test code = YELLOW YELLOW COLU) UA APPEARANCE (test code CLEAR CLEAR = APPU) UA BILIRUBIN DIPSTICK NEGATIVE mg/dL NEGATIVE (test code = BILU) UA SPECIFIC GRAVITY (test 1.027 1.001-1.035 code = SGU) UA PH DIPSTICK (test code 5.0 5.0-8.0 = HARRIET) UA UROBILINIOGEN DIPSTICK Normal mg/dL NEGATIVE (test code = URO) UA NITRITE DIPSTICK (test NEGATIVE NEGATIVE code = ROSEANNE) UA LEUKOCYTE ESTERASE W NEGATIVE Jovani/uL NEGATIVE REFLEX (test code = LEUUR) UA WBC (test code = WBCU) 0-5 per HPF 0-5 UA RBC (test code = RBCU) per HPF 0-5 UA EPITHELIAL CELLS (test MOD per HPF FEW code = EPIU) UA BACTERIA (test code = FEW #/HPF NONE A BACU) UA GLUCOSE DIPSTICK (test NEGATIVE mg/dL NEGATIVE code = DGLUU) UA KETONE DIPSTICK (test NEGATIVE mg/dL NEGATIVE code = KETU) UA BLOOD DIPSTICK (test 0.1 mg/dL (1+) mg/dL NEGATIVE A code = DEVEN) UA PROTEIN DIPSTICK (test NEGATIVE mg/dL NEGATIVE code = PROU) UA URIC ACID CRYSTALS FEW #/HPF NONE A (test code = URIU) UA MUCUS (test code = FEW #/LPF FEW MUCU) Urine Source? Clean CatchUR HCG [id number] 12:39:00 Test Item Value Reference Range Interpretation Comments UR HCG QUAL (test NEGATIVE This HCGQL test is NOT code = HCGQLU) applicable fo r MALE patients.Check with nurse about probable order error.If Tumor Marker Test needed, nu rse should order test "HCG TU"(Test #550.05669)---- - Urine Source? Clean CatchPROTHROMBIN [id number] 12:16:00 Test Item Value Reference Range Interpretation Comments PROTHROMBIN TIME 13.5 seconds 9.0-14.0 N PATIENT (test code = PTP) INTERNATIONAL NORMAL 1.2 0.8-1.2 N The the rapeutic range RATIO (test code = for oral INR) anticoagulant t herapy formost indicat ions is an internati onal normalized rati o (INR)of between 2.0 and 3.0. The recommended therapeutic INR range for various cli nical situations is l isted below: Clinical Situat ion INR range Pulmonary embol ism treatment (2.0-3.0)Venou s thrombosis treatmentVenous thrombosis prophylaxis (hi gh risk surgery)Prevent ion of systemic emboli sm from: A cute myocardial infa rction Valvula r heart disease Atrial fibrilla tion Mechanical pros thetic heart valves (2.5-3.5) IS PATIENT ON ANTICOAGULANTS? NTHROMBOPLASTIN TIME [id number] 12:16:00 Test Item Value Reference Range Interpretation Comments THROMBOPLASTIN TIME PARTIAL 36.9 seconds 23.0-37.0 N (test code = PTT) IS PATIENT ON ANTICOAGULANTS? NCBC W/AUTO [id number] 12:10:00 Test Item Value Reference Range Interpretation Comments WHITE BLOOD CELL (test code = 7.7 K/mm3 4.5-12.5 N WBC) RED BLOOD CELL (test code = 5.31 mill/mm3 3.7-5.2 H RBC) HEMOGLOBIN (test code = HGB) 13.6 gram/dL 11.5-15.5 N HEMATOCRIT (test code = HCT) 44.4 % 36.0-46.0 N MEAN CELL VOLUME (test code = 83.6 fL 80-98 N MCV) MEAN CELL HGB (test code = MCH) 25.6 picogram 27.0-33.0 L MEAN CELL HGB CONCETRATION 30.6 gram/dL 33.0-36.0 L (test code = MCHC) RED CELL DISTRIBUTION WIDTH 14.6 % 11.6-16.2 N (test code = RDW) RED CELL DISTRIBUTION WIDTH SD 44.0 fL 37.0-51.0 N (test code = RDW-SD) PLATELET COUNT (test code = 291 K/mm3 150-450 N PLT) MEAN PLATELET VOLUME (test code 10.4 fL 6.7-11.0 N = MPV) NEUTROPHIL % (test code = NT%) 66.9 % 39.0-69.0 N IMMATURE GRANULOCYTE % (test 0.5 % 0.0-5.0 N code = IG%) LYMPHOCYTE % (test code = LY%) 26.9 % 25.0-55.0 N MONOCYTE % (test code = MO%) 4.1 % 0.0-10.0 N EOSINOPHIL % (test code = EO%) 1.2 % 0.0-5.0 N BASOPHIL % (test code = BA%) 0.4 % 0.0-1.0 N NUCLEATED RBC % (test code = 0.0 % 0-0 N NRBC%) NEUTROPHIL # (test code = NT#) 5.16 K/mm3 1.8-7.7 N IMMATURE GRANULOCYTE # (test 0.04 x10 3/uL 0-0.03 H code = IG#) LYMPHOCYTE # (test code = LY#) 2.08 K/mm3 1.0-5.0 N MONOCYTE # (test code = MO#) 0.32 K/mm3 0-0.8 N EOSINOPHIL # (test code = EO#) 0.09 K/mm3 0.0-0.5 N BASOPHIL # (test code = BA#) 0.03 K/mm3 0.0-0.2 N NUCLEATED RBC # (test code = 0.00 K/mm3 0.0-0.1 N NRBC#) MANUAL DIFF REQUIRED (test code NO = MDIFF) CBC W/AUTO [id number] 14:12:00 Test Item Value Reference Range Interpretation Comments WHITE BLOOD CELL 4.3 K/mm3 3.5-11.0 N (test code = WBC) RED BLOOD CELL (test 5.32 M/mm3 4.70-6.10 N code = RBC) HEMOGLOBIN (test code 13.9 G/DL 10.4-14.9 N = HGB) HEMATOCRIT (test code 42.6 % 31.5-44.1 N = HCT) MEAN CELL VOLUME 80.1 Fl 84.5-98.6 L (test code = MCV) MEAN CELL HGB (test 26.1 pg 27.0-34.2 L code = MCH) MEAN CELL HGB 32.6 G/DL 31.5-34.0 N CONCETRATION (test code = MCHC) RED CELL DISTRIBUTION 14.5 SD 11.5-14.5 N WIDTH (test code = RDW) PLATELET COUNT (test 268 K/mm3 150-450 N code = PLT) MEAN PLATELET VOLUME 9.70 fL 7.0-10.5 N (test code = MPV) NEUTROPHIL % (test 43.0 % 40-76 N code = NT%) IMMATURE GRANULOCYTE 0.5 % 0.0-5.0 N % (test code = IG%) LYMPHOCYTE % (test 43.0 % 20.5-51.1 N code = LY%) MONOCYTE % (test code 12.1 % 1.7-9.3 H = MO%) EOSINOPHIL % (test 1.2 % 0.0-6.0 N code = EO%) BASOPHIL % (test code 0.2 % 0.0-2.0 N = BA%) NUCLEATED RBC % (test 0.0 /100WBC% 0.0-1.0 N code = NRBC%) NEUTROPHIL # (test 1.8 K/mm3 1.8-7.6 N code = NT#) IMMATURE GRANULOCYTE 0.02 x10 3/uL 0.00-0.03 N # (test code = IG#) LYMPHOCYTE # (test 1.8 K/mm3 0.6-3.2 N code = LY#) MONOCYTE # (test code 0.5 K/mm3 0.3-1.1 N = MO#) EOSINOPHIL # (test 0.1 K/mm3 0.0-0.4 N code = EO#) BASOPHIL # (test code 0.0 K/mm3 0.0-0.1 N = BA#) NUCLEATED RBC # (test 0.0 K/mm3 0.0-0.1 N code = NRBC#) MANUAL DIFF REQUIRED NO DIFF/SCN CRITERIA SLIDE R HANSA (test code = MDIFF) CONSISTA NT WITH AUTO DIFFERENTI AL. HCG SERUM [id number] 11:50:00 Test Item Value Reference Range Interpretation Comments HCG SERUM QUAL (test SERUM NEGATIVE SCREEN NEGATIVE code = HCGQL) COVID 19 INHOUSE [id number] 11:49:00 Test Item Value Reference Range Interpretation Comments COVID 19 INHOUSE AG NEGATIVE Negative Per manu facturer, (test code = negative result s should [id number]) be treated aspr esumptive and, if inconsi stent with clinical signs andsymptoms or necessary for patient man agement, should betested with an alternative mol ecular assay. Negative resultsdo not preclude SA RS-CoV-2 infection and s hould not be usedas the s ole basis for patient man agement decisions. Neg ative results should be considered in t he context of apatient's r ecent exposures, hist ory, presence of cli nicalsigns and symptoms co nsistent with COVID-19. CBC W/AUTO [id number] 11:42:00 Test Item Value Reference Range Interpretation Comments WHITE BLOOD CELL (test code = WBC) 4.3 K/mm3 3.5-11.0 N RED BLOOD CELL (test code = RBC) 5.32 M/mm3 4.70-6.10 N HEMOGLOBIN (test code = HGB) 13.9 G/DL 10.4-14.9 N HEMATOCRIT (test code = HCT) 42.6 % 31.5-44.1 N MEAN CELL VOLUME (test code = MCV) 80.1 Fl 84.5-98.6 L MEAN CELL HGB (test code = MCH) 26.1 pg 27.0-34.2 L MEAN CELL HGB CONCETRATION (test 32.6 G/DL 31.5-34.0 N code = MCHC) RED CELL DISTRIBUTION WIDTH (test SD 11.5-14.5 N code = RDW) PLATELET COUNT (test code = PLT) 268 K/mm3 150-450 N MEAN PLATELET VOLUME (test code = fL 7.0-10.5 N MPV) NEUTROPHIL % (test code = NT%) % 40-76 N IMMATURE GRANULOCYTE % (test code % 0.0-5.0 N = IG%) LYMPHOCYTE % (test code = LY%) % 20.5-51.1 N MONOCYTE % (test code = MO%) % 1.7-9.3 H EOSINOPHIL % (test code = EO%) % 0.0-6.0 N BASOPHIL % (test code = BA%) % 0.0-2.0 N NUCLEATED RBC % (test code = /100WBC% 0.0-1.0 N NRBC%) NEUTROPHIL # (test code = NT#) K/mm3 1.8-7.6 N IMMATURE GRANULOCYTE # (test code x10 3/uL 0.00-0.03 N = IG#) LYMPHOCYTE # (test code = LY#) K/mm3 0.6-3.2 N MONOCYTE # (test code = MO#) K/mm3 0.3-1.1 N EOSINOPHIL # (test code = EO#) K/mm3 0.0-0.4 N BASOPHIL # (test code = BA#) K/mm3 0.0-0.1 N NUCLEATED RBC # (test code = K/mm3 0.0-0.1 N NRBC#) MANUAL DIFF REQUIRED (test code = DIFF/SCN CRITERIA MDIFF) POCT [id number] 13:59:00 Test Item Value Reference Range Interpretation Comments POCT PREG (test code = 1605) Negative On board controls acceptable with C Yes Line (test code = 3574) POCT PREG LOT # (test code = 3575) POCT PREG TEST DATE (test code = 3576) [facility] [id number] 13:59:00 Test Item Value Reference Range Interpretation Comments POCT PREG (test code = 1605) Negative On board controls acceptable with C Yes Line (test code = 3574) POCT PREG LOT # (test code = 3575) POCT PREG TEST DATE (test code = 3576) [facility] [id number] 13:59:00 Test Item Value Reference Range Interpretation Comments POCT PREG (test code = 1605) Negative On board controls acceptable with C Yes Line (test code = 3574) POCT PREG LOT # (test code = 3575) POCT PREG TEST DATE (test code = 3576) [facility] [id number] 14:22:00 Test Item Value Reference Range Interpretation Comments POCT PREG (test code = 1605) Negative On board controls acceptable with C Yes Line (test code = 3574) POCT PREG LOT # (test code = 3575) POCT PREG TEST DATE (test code = 3576) [facility] [id number] 14:22:00 Test Item Value Reference Range Interpretation Comments POCT PREG (test code = 1605) Negative On board controls acceptable with C Yes Line (test code = 3574) POCT PREG LOT # (test code = 3575) POCT PREG TEST DATE (test code = 3576) [facility] [id number] 14:06:00 Test Item Value Reference Range Interpretation Comments POCT PREG (test code = 1605) Negative On board controls acceptable with C Yes Line (test code = 3574) POCT PREG LOT # (test code = 3575) POCT PREG TEST DATE (test code = 3576) [facility] SYPHILIS [id number] 14:13:00 Test Item Value Reference Range Interpretation Comments Syphilis IgG/IgM (test Non-reactive Non-reactive code = 86646-6) LUTHER (test code = LUTHER) Non-reactive - No serologic evidence of T. pallidum infection. Cannot exclude incubating or early syphilis. Submit a second specimen in 2-4 weeks if syphilis is clinically suspected. Equivocal - Further testing to follow. Reactive - Further testing to follow. Lab Interpretation (test Normal code = 25089-4) [facility] Paso[facility] WITH [id number] 09:26:00 Test Item Value Reference Range Interpretation Comments WBC (test code = See_Comment H [Automated 3368-2) message] The system which generated this result transmit ling reference range : 4.30 - 11.10 10*3/?L. The reference range was not used to interpret this result as normal/abnormal . RBC (test code = See_Comment [Automated 389-8) message] The system which generated this result transmit ling reference range : 3.93 - 5.25 10*6/?L. The reference range was not used to interpret this result as normal/abnormal . HGB (test code = 12.9 g/dL 11.6-15 718-7) HCT (test code = 39.3 % 35.7-45.2 4544-3) MCV (test code = 85.8 fL 80.6-95.5 787-2) MCH (test code = 28.2 pg 25.9-32.8 785-6) MCHC (test code = 32.8 g/dL 31.6-35.1 786-4) RDW-SD (test code = 44.3 fL 39-49.9 45997-0) RDW-CV (test code = 14.4 % 12-15.5 788-0) PLT (test code = See_Comment [Automated 007-3) message] The system which generated this result transmit ling reference range : 166 - 358 10*3/ ?L. The reference range was not u sed to interpret th is result as normal/abnormal . MPV (test code = 11.0 fL 9.5-12.9 13040-6) NRBC/100 WBC (test See_Comment [Automat ed code = 0196334409) message] The system which generated this result transmit ling reference range : 0.0 - 10.0 /100 WBCs. The reference range was not used to interpret this result as normal/abnormal . NRBC x10^3 (test code <0.01 See_Comment [Auto mated = 9616247404) message] The system which generated this result transmit ling reference range : 10*3/?L. The reference range was not used to interpret this result as normal/abnormal . GRAN MAT (NEUT) % 81.3 % (test code = 770-8) IMM GRAN % (test code 0.50 % = 5163253160) LYMPH % (test code = 10.0 % 736-9) MONO % (test code = 7.8 % 5905-5) EOS % (test code = 0.1 % 713-8) BASO % (test code = 0.3 % 706-2) GRAN MAT x10^3(ANC) 11.84 10*3/uL 1.88-7.09 H (test code = 6792009714) IMM GRAN x10^3 (test 0.08 10*3/uL 0-0.06 H code = 3092459684) LYMPH x10^3 (test code 1.46 10*3/uL 1.32-3.29 = 731-0) MONO x10^3 (test code 1.13 10*3/uL 0.33-0.92 H = 742-7) EOS x10^3 (test code = <0.03 0.03-0.39 L 711-2) BASO x10^3 (test code 0.04 10*3/uL 0.01-0.07 = 704-7) Lab Interpretation Abnormal (test code = 92793-9) [facility] IMMUNE [id number] 03:01:12 Test Item Value Reference Range Interpretation Comments RHIG CANDIDATE? No- see comment Patient i s not a (test code = candidate for R hIg- 5055) Patient is Rh Positive.Perfor med at [facility] Laboratory Services - [facility] Blood [address] [place], [place] [address]Toll Free: [phone] A No. [id number] [facility] PasoVenous Cord [id number] 00:09:00 Test Item Value Reference Range Interpretation Comments VENOUS BASE EXCESS, CORD mEq/L (test code = 9558698701) VENOUS PH, CORD (test 7.25-7.45 code = 0214225884) VENOUS PC02, CORD (test See_Comment H [Au tomated message] code = 1260184988) The syste m which generated this result transmitted ref erence range: 27 - 49 mmHg. The reference r elsi was not used to interpret this result as normal/abnor mal. VENOUS PO2, CORD (test See_Comment [Aut omated message] code = 5285704317) The syste m which generated this result transmitted ref erence range: 17 - 41 mmHg. The reference r elsi was not used to interpret this result as normal/abnor mal. VENOUS BICARBONATE, CORD See_Comment [A utomated message] (test code = 0205850285) The system which generated this result transmitted ref erence range: 12 - 29 mEq/L. The reference r elsi was not used to interpret this result as normal/abnor mal. Lab Interpretation (test Abnormal code = 98578-2) [facility] PasoArterial Cord [id number] 00:06:00 Test Item Value Reference Range Interpretation Comments BASE EXCESS, CORD mEq/L (test code = 6284204797) AC PH, CORD (BEAKER) 7.18-7.38 (test code = 3590695287) PC02, CORD (test code See_Comment [Auto mated message] The = 4196406908) system which g enerated this result transmit ling reference range : 32 - 66 mmHg. The refer ence range was not used to interpret this result as normal/abnormal . PO2, CORD (test code See_Comment [Autom ated message] The = 9750134624) system which g enerated this result transmit ling reference range : 10 - 30 mmHg. The refer ence range was not used to interpret this result as normal/abnormal . BICARBONATE, CORD See_Comment [Automate d message] The (test code = system which ge nerated this 4160226024) result transmit ling reference range : 17 - 27 mEq/L. The refe rence range was not used to interpret this result as normal/abnormal . [facility] PasoPANEL [id number] 19:06:46 ANTIBODY HMJbgf-MrkUnzf-M Comment: Performed at [facility] Laboratory Services - [facility] Blood [address] [place], [place] [address]Glpq Free: [phone] No. [id number] [facility]UnO[facility] CenterType and Screen - ONCE STAT 2019-09-20 18:19:37 Test Item Value Reference Range Interpretation Comments ABO & RH (test code O POSITIVE Performe d at [facility] = 20) Laboratory Serv [facility] Blood [facility] [facility] s [address]Fjsp Free: [phone] A No. [id number] IAT (test code = Positive Performed a t [facility] 1185) Laboratory Serv [facility] Blood [facility]3 [address] [facility] [address]Stcx Free: [phone] A No. [id number] [facility] PasoUric Acid [id number] 18:12:00 Test Item Value Reference Range Interpretation Comments URIC ACID (test code = 4511278517) 5.5 mg/dL 2.9-6 Lab Interpretation (test code = Normal 40779-4) [facility] [id number] 18:12:00 Test Item Value Reference Range Interpretation Comments CREATININE (test code 0.58 mg/dL 0.5-1.04 = 0942311621) eGFR Calculation mL/min/1.73m2 (Non-) (test code = 8970651701) eGFR Calculation mL/min/1.73m2 () (test code = 2061081305) LUTHER (test code = LUTHER) Association of Glomerular Filtration Rate (GFR) and Staging of Kidney Disease* + -+ + ---+| GFR (mL/min/1.73 m2) ?| With Kidney Damage ?| ?Without Kidney Damage+ -------+ ------+ ---------+| ?>90 ?| ?Stage one ?| ? Normal ?+ --+ -+ ----+| ?60-89 ?| ?Stage two ?| ? Decreased GFR ? + -+ + ---+| ?30-59 ?| ?Stage three ?| ? Stage three ? + -+ + ---+| ?15-29 ?| ?Stage four ? | ? Stage four ?+ --+ -+ ----+| ?<15 (or dialysis) ? ?| ?Stage five ? | ? Stage five ?+ --+ -+ ----+ *Each stage assumes the associated GFR level has been in effect for at least three months. ?Stages 1 to 5, with or without kidney disease, indicate chronic kidney disease. Notes: Determination of stages one and two (with eGFR >59mL/min/1.73 m2) requires estimation of kidney damage for at least three months as defined by structural or functional abnormalities of the kidney, manifested by either:Pathological abnormalities or Markers of kidney damage (including abnormalities in the composition of the blood or urine or abnormalities in imaging tests). [facility] PasoSGOT (Asparate Amino Transfer)2019-09-20 18:12:00 Test Item Value Reference Range Interpretation Comments AST(SGOT) (test code = 4303655841) 22 U/L 13-40 Lab Interpretation (test code = Normal 14925-6) [facility] PasoAlanine Amino Transferase (SGPT)2019-09-20 18:12:00 Test Item Value Reference Range Interpretation Comments ALTv (test code = 1742-6) 20 U/L 5-35 Lab Interpretation (test code = Normal 52647-1) [facility] PasoLactate [id number] 18:07:00 Test Item Value Reference Range Interpretation Comments LDH (test code = 2758949016) 400 U/L 300-600 Lab Interpretation (test code = Normal 28232-9) [facility] PasoHepatitis B Surface [id number] 17:51:00 Test Item Value Reference Range Interpretation Comments HBsAg Semi-Quantitative (test code = Negative Negative 5195-3) [facility] PasoProtein CREAT Ratio Urine [id number] 17:03:00 Test Item Value Reference Range Interpretation Comments T. PROT U (test code = 2888-6) 12 mg/dL CREAT U (test code = 4370410441) 109.8 mg/dL Protein/Creatinine Ratio Urine 0.0-2.0 (test code = 4684274881) [facility] PasoUrinalysis2020-03-10 16:58:00 Test Item Value Reference Range Interpretation Comments APPEARANCE (test code = Hazy Clear A 9812308139) COLOR (test code = Yellow Yellow 1593369594) PH (test code = 4.8-8.0 8010048812) SP GRAVITY (test code = 1.003-1.030 1827250065) GLU U QUAL (test code = Normal Normal 2731865704) BLOOD (test code = Negative Negative 5349955517) KETONES (test code = Negative Negative 4862602475) PROTEIN (test code = Negative Negative 2887-8) UROBILIN (test code = Normal Normal 0428991818) BILIRUBIN (test code = Negative Negative 4533203688) NITRITE (test code = Negative Negative 0279918966) LEUK AURA (test code = Negative Negative 7157509790) RBC/HPF (test code = See_Comment [Autom ated message] 7608141683) The system [employer] generated this result transmitted ref erence range: 0 - 3 HP F. The reference range was not used to int erpret this result as normal/abnormal . WBC/HPF (test code = See_Comment [Autom ated message] 6034241847) The system [employer] generated this result transmitted ref erence range: 0 - 5 HP F. The reference range was not used to int erpret this result as normal/abnormal . BACTERIA (test code = Few Negative A 6934691777) MUCOUS (test code = Slight Negative LPF A 8063953238) SQ EPITH (test code = See_Comment H [Auto mated message] 5854478074) The system [employer] generated this result transmitted ref erence range: <=2 HPF. The reference range was not used to int erpret this result as normal/abnormal . Lab Interpretation (test Abnormal code = 88241-0) [facility] PasoCB WITH [id number] 16:53:00 Test Item Value Reference Range Interpretation Comments WBC (test code = See_Comment H [Automated 6690-2) message] The sy stem which generated this result transmitted reference range : 4.30 - 11.10 10*3/?L. The reference range was not used to interpret this result as normal/abnormal . RBC (test code = See_Comment [Automated 789-8) message] The sy stem which generated this result transmitted reference range : 3.93 - 5.25 10*6/?L. The reference range was not used to interpret this result as normal/abnormal . HGB (test code = 14.4 g/dL 11.6-15 718-7) HCT (test code = 43.8 % 35.7-45.2 4544-3) MCV (test code = 83.9 fL 80.6-95.5 787-2) MCH (test code = 27.6 pg 25.9-32.8 785-6) MCHC (test code = 32.9 g/dL 31.6-35.1 786-4) RDW-SD (test code = 43.2 fL 39-49.9 55789-6) RDW-CV (test code = 14.2 % 12-15.5 788-0) PLT (test code = See_Comment [Automated 777-3) message] The sy stem which generated this result transmitted reference range : 166 - 358 10*3/ ?L. The reference r elsi was not used to interpret this result as normal/abnormal . MPV (test code = 10.9 fL 9.5-12.9 08884-1) NRBC/100 WBC (test See_Comment [Automat ed code = 0859603623) message] The system which generated this result transmitted reference range : 0.0 - 10.0 /100 WBCs. The refer ence range was not u sed to interpret th is result as normal/abnormal . NRBC x10^3 (test code <0.01 See_Comment [Auto mated = 0978248089) message] The s ystem which generated this result transmitted reference range : 10*3/?L. The reference range was not used to interpret this result as normal/abnormal . GRAN MAT (NEUT) % 76.7 % (test code = 770-8) IMM GRAN % (test code 0.50 % = 6988922097) LYMPH % (test code = 14.3 % 736-9) MONO % (test code = 7.6 % 5905-5) EOS % (test code = 0.5 % 713-8) BASO % (test code = 0.4 % 706-2) GRAN MAT x10^3(ANC) 8.53 10*3/uL 1.88-7.09 H (test code = 8540732160) IMM GRAN x10^3 (test 0.06 10*3/uL 0-0.06 code = 0922304839) LYMPH x10^3 (test code 1.59 10*3/uL 1.32-3.29 = 731-0) MONO x10^3 (test code 0.84 10*3/uL 0.33-0.92 = 742-7) EOS x10^3 (test code = 0.05 10*3/uL 0.03-0.39 711-2) BASO x10^3 (test code 0.04 10*3/uL 0.01-0.07 = 704-7) Lab Interpretation Abnormal (test code = 84882-5) [facility] URINALYSIS W SPECIFIC [id number] 14:17:00 Test Item Value Reference Range Interpretation Comments POCT U SP GRAV (test code = 3255) . 1.005-1.025 POCT PH U (test code = 3254) . 5-8 POCT U LEUK EST (test code = 3263) . Negative - Negative POCT U NIT (test code = 3262) . Negative - Negative POCT U PROT (test code = 3259) Trace Negative - Negative POCT U GLU (test code = 3256) Neg Negative - Negative POCT U KETONE (test code = 3258) . Negative - Negative POCT U UROBILI (test code = 3260) . 0.2-1 POCT U BILI (test code = 3261) . Negative - Negative POCT U BLD (test code = 3257) . Negative - Negative POCT U COLOR (test code = 3266) POCT U APPEAR (test code = 3267) [facility] URINALYSIS W SPECIFIC [id number] 15:35:00 Test Item Value Reference Range Interpretation Comments POCT U SP GRAV (test code = 3255) . 1.005-1.025 POCT PH U (test code = 3254) . 5-8 POCT U LEUK EST (test code = 3263) . Negative - Negative POCT U NIT (test code = 3262) . Negative - Negative POCT U PROT (test code = 3259) Trace Negative - Negative POCT U GLU (test code = 3256) Neg Negative - Negative POCT U KETONE (test code = 3258) . Negative - Negative POCT U UROBILI (test code = 3260) . 0.2-1 POCT U BILI (test code = 3261) . Negative - Negative POCT U BLD (test code = 3257) . Negative - Negative POCT U COLOR (test code = 3266) POCT U APPEAR (test code = 3267) [facility]IFIC [id number] 14:27:00 Test Item Value Reference Range Interpretation Comments POCT U SP GRAV (test code = 3255) . 1.005-1.025 POCT PH U (test code = 3254) . 5-8 POCT U LEUK EST (test code = 3263) . Negative - Negative POCT U NIT (test code = 3262) . Negative - Negative POCT U PROT (test code = 3259) Trace Negative - Negative POCT U GLU (test code = 3256) Neg Negative - Negative POCT U KETONE (test code = 3258) . Negative - Negative POCT U UROBILI (test code = 3260) . 0.2-1 POCT U BILI (test code = 3261) . Negative - Negative POCT U BLD (test code = 3257) . Negative - Negative POCT U COLOR (test code = 3266) POCT U APPEAR (test code = 3267) [facility] TITER [id number] 15:17:50 Test Item Value Reference Range Interpretation Comments TITERED AB (test Ab Titered: Fya Performe d at [facility] code = 1141) Laboratory Serv [facility] Blood [address] s [address]Qinu Free: [phone] A No. [id number] AB TITER (test Antibody Titer: 4 Performe d at [facility] code = 247) Laboratory [facility] Blood [address] s [address]Fyxw Free: [phone] A No. [id number] [facility] Paso[facility] TITER [id number] 15:17:16 Test Item Value Reference Range Interpretation Comments TITERED AB (test Ab Titered: K Performed at [facility] code = 1141) Laboratory [facility] Blood Ban [address] [facility] s [address]Arla Free: [phone] A No. [id number] AB TITER (test Antibody Titer: 8 Performe d at [facility] code = 247) Laboratory [facility] Blood Ban [address] [facility] s [address]Ceyx Free: [phone] A No. [id number] [facility] PasoPANEL [id number] 13:49:50 ANTIBODY YLTxqg-JrmLctv-R Comment: Performed at [facility] Laboratory [facility] Blood [address] [place], [place] [address]Cjic Free: [phone] No. [id number] [facility] PasoPrenatal Workup, Blood Bank 2019-08-05 13:47:05 Test Item Value Reference Range Interpretation Comments ABO & RH (test code O POSITIVE Performe d at [facility] = 20) Laboratory [facility] Blood Bank3 [address] [facility] s [address]Cciw Free: [phone] A No. [id number] IAT (test code = Positive Performed a t [facility] 1185) Laboratory [facility] Blood Bank3 [address] [facility] s [address]Qvdf Free: [phone] A No. [id number] [facility] UR[facility]IS W/O SPECIFIC [id number] 15:38:00 Test Item Value Reference Range Interpretation Comments POCT PH U (test code = 3254) 5 mg/dl 5-8 POCT U LEUK EST (test code = trace Negative - Negative 3263) POCT U NIT (test code = 3262) neg Negative - Negative POCT U PROT (test code = 3259) trace Negative - Negative POCT U GLU (test code = 3256) neg Negative - Negative POCT U KETONE (test code = 3258) neg Negative - Negative POCT U BLD (test code = 3257) neg Negative - Negative Lab Interpretation (test code = Abnormal 49660-9) [facility] URINALYSIS W/O SPECIFIC [id number] 15:38:00 Test Item Value Reference Range Interpretation Comments POCT PH U (test code = 3254) 5 mg/dl 5-8 POCT U LEUK EST (test code = trace Negative - Negative 3263) POCT U NIT (test code = 3262) neg Negative - Negative POCT U PROT (test code = 3259) trace Negative - Negative POCT U GLU (test code = 3256) neg Negative - Negative POCT U KETONE (test code = 3258) neg Negative - Negative POCT U BLD (test code = 3257) neg Negative - Negative Lab Interpretation (test code = Abnormal 08510-5) [facility] URINALYSIS W/O SPECIFIC [id number] 15:38:00 Test Item Value Reference Range Interpretation Comments POCT PH U (test code = 3254) 5 mg/dl 5-8 POCT U LEUK EST (test code = trace Negative - Negative 3263) POCT U NIT (test code = 3262) neg Negative - Negative POCT U PROT (test code = 3259) trace Negative - Negative POCT U GLU (test code = 3256) neg Negative - Negative POCT U KETONE (test code = 3258) neg Negative - Negative POCT U BLD (test code = 3257) neg Negative - Negative Lab Interpretation (test code = Abnormal 85365-9) [facility] URINALYSIS W SPECIFIC [id number] 14:33:00 Test Item Value Reference Range Interpretation Comments POCT U SP GRAV (test code = 3255) . 1.005-1.025 POCT PH U (test code = 3254) 5 mg/dl 5-8 POCT U LEUK EST (test code = neg Negative - Negative 3263) POCT U NIT (test code = 3262) neg Negative - Negative POCT U PROT (test code = 3259) trace Negative - Negative POCT U GLU (test code = 3256) neg Negative - Negative POCT U KETONE (test code = 3258) neg Negative - Negative POCT U UROBILI (test code = 3260) . 0.2-1 POCT U BILI (test code = 3261) . Negative - Negative POCT U BLD (test code = 3257) neg Negative - Negative POCT U COLOR (test code = 3266) POCT U APPEAR (test code = 3267) [facility] W SPECIFIC [id number] 14:33:00 Test Item Value Reference Range Interpretation Comments POCT U SP GRAV (test code = 3255) . 1.005-1.025 POCT PH U (test code = 3254) 5 mg/dl 5-8 POCT U LEUK EST (test code = neg Negative - Negative 3263) POCT U NIT (test code = 3262) neg Negative - Negative POCT U PROT (test code = 3259) trace Negative - Negative POCT U GLU (test code = 3256) neg Negative - Negative POCT U KETONE (test code = 3258) neg Negative - Negative POCT U UROBILI (test code = 3260) . 0.2-1 POCT U BILI (test code = 3261) . Negative - Negative POCT U BLD (test code = 3257) neg Negative - Negative POCT U COLOR (test code = 3266) POCT U APPEAR (test code = 3267) [facility] TITER [id number] 11:17:08 Test Item Value Reference Range Interpretation Comments TITERED AB (test Ab Titered: Fya Performe d at [facility] code = 1141) Laboratory [facility] Blood [address] s [address]Nevs Free: [phone] A No. [id number] AB TITER (test Antibody Titer: 8 Performe d at [facility] code = 247) Laboratory [facility] Blood [address] s [address]Yptc Free: [phone] A No. [id number] [facility]ANT[facility]ODY TITER [id number] 11:17:08 Test Item Value Reference Range Interpretation Comments TITERED AB (test Ab Titered: Fya Performe d at [facility] code = 1141) Laboratory [facility] Blood [address] s [address]Kzuo Free: [phone] A No. [id number] AB TITER (test Antibody Titer: 8 Performe d at [facility] code = 247) Laboratory [address] s [address]Reyo Free: [phone] A No. [id number] [facility] TITER [id number] 11:16:14 Test Item Value Reference Range Interpretation Comments TITERED AB (test Ab Titered: K Performed at [facility] code = 1141) Laboratory [address] s [address]Kxmh Free: [phone] A No. [id number] AB TITER (test Antibody Titer: 4 Performe d at [facility] code = 247) Laboratory [facility] Blood [address] s [address]Giwb Free: [phone] A No. [id number] [facility]ANT[facility] TITER [id number] 11:16:14 Test Item Value Reference Range Interpretation Comments TITERED AB (test Ab Titered: K Performed at [facility] code = 1141) Laboratory [address] s [address]Xeax Free: [phone] A No. [id number] AB TITER (test Antibody Titer: 4 Performe d at [facility] code = 247) Laboratory [facility] Blood [address] s [address]Rknt Free: [phone] A No. [id number] [facility] [id number] 11:16:13 ANTIBODY DPGugl-AvoValf-P Comment: Performed at [facility] Laboratory Services - [facility] Blood [address] [address]Lucu Free: [phone] No. [id number] [facility]ENT[facility]ICATION 2019-02-25 11:16:13ANTIBODY USXvuj-ZrbCbht-D Comment: Performed at [facility] Laboratory [facility] Blood [address] [place] [address]Ylni Free: [phone] No. [id number] [facility] WORKUP, BLOOD [id number] 07:33:42 Test Item Value Reference Range Interpretation Comments ABO & RH (test code O Positive Performe d at [facility] = 20) Laboratory [facility] Blood Bank[address] [place] [address]Grcx Free: [phone] A No. [id number] IAT (test code = Positive Performed a t [facility] 1185) Laboratory [facility] Blood [address] s [address]Vrjd Free: [phone] A No. [id number] [facility] WORKUP, BLOOD [id number] 07:33:42 Test Item Value Reference Range Interpretation Comments ABO & RH (test code O Positive Performe d at [facility] = 20) Laboratory [facility] Blood [address] [address]Japa Free: [phone] A No. [id number] IAT (test code = Positive Performed a t [facility] 1185) Laboratory [facility] Blood [address] [address]Kbun Free: [phone] A No. [id number] [facility] W SPECIFIC [id number] 15:07:00 Test Item Value Reference Range Interpretation Comments POCT U SP GRAV (test code = 3255) . 1.005-1.025 POCT PH U (test code = 3254) 5 mg/dl 5-8 POCT U LEUK EST (test code = neg Negative - Negative 3263) POCT U NIT (test code = 3262) neg Negative - Negative POCT U PROT (test code = 3259) neg Negative - Negative POCT U GLU (test code = 3256) neg Negative - Negative POCT U KETONE (test code = 3258) neg Negative - Negative POCT U UROBILI (test code = 3260) . 0.2-1 POCT U BILI (test code = 3261) . Negative - Negative POCT U BLD (test code = 3257) neg Negative - Negative POCT U COLOR (test code = 3266) POCT U APPEAR (test code = 3267) [facility] URINALYSIS W SPECIFIC [id number] 15:07:00 Test Item Value Reference Range Interpretation Comments POCT U SP GRAV (test code = 3255) . 1.005-1.025 POCT PH U (test code = 3254) 5 mg/dl 5-8 POCT U LEUK EST (test code = neg Negative - Negative 3263) POCT U NIT (test code = 3262) neg Negative - Negative POCT U PROT (test code = 3259) neg Negative - Negative POCT U GLU (test code = 3256) neg Negative - Negative POCT U KETONE (test code = 3258) neg Negative - Negative POCT U UROBILI (test code = 3260) . 0.2-1 POCT U BILI (test code = 3261) . Negative - Negative POCT U BLD (test code = 3257) neg Negative - Negative POCT U COLOR (test code = 3266) POCT U APPEAR (test code = 3267) [facility] URINALYSIS W SPECIFIC [id number] 15:07:00 Test Item Value Reference Range Interpretation Comments POCT U SP GRAV (test code = 3255) . 1.005-1.025 POCT PH U (test code = 3254) 5 mg/dl 5-8 POCT U LEUK EST (test code = neg Negative - Negative 3263) POCT U NIT (test code = 3262) neg Negative - Negative POCT U PROT (test code = 3259) neg Negative - Negative POCT U GLU (test code = 3256) neg Negative - Negative POCT U KETONE (test code = 3258) neg Negative - Negative POCT U UROBILI (test code = 3260) . 0.2-1 POCT U BILI (test code = 3261) . Negative - Negative POCT U BLD (test code = 3257) neg Negative - Negative POCT U COLOR (test code = 3266) POCT U APPEAR (test code = 3267) [facility] ONLY PAP SMEAR-LIQUID [id number] 15:19:00 Test Item Value Reference Range Interpretation Comments Case Report (test code Gynecologic = 5744104796) Cytology?Case: [id number]? Authorizing Provider:?Lindy Godwin,?Collected:? 01/26/2019 1135??? WHCNP?Ordering Location:? [facility]-? Received:?01/26/2019 2341?? [place]? First Screen:?Dennise Munroe? Specimen:?Liquid Based Pap Preparation, CERVIX? Clinical Information routine (test code = 9725885529) Specimen Adequacy Satisfactory for (test code = 11999-4) Evaluation(Endocervical /Transformation Zone Component Absent) Interpretation (test Negative for code = 67484-1) intraepithelial lesion or malignancy Other Findings (test Shift In Blossom code = 5511296638) Suggestive Of Bacterial Vaginosis Comments (test code = l4itfOBjVMBdoMFtSbXuIYL 8697796256) jRKWzc9hcFBKmtVNqMkIePi NcZnRuYmpcdWMxXGRlZmYwe 1stf864lDKku3nmGTJkTdE7 pJTcBNQgrFPzC677WNPuMWx ck2rml8GzLUHetENnn0F7HN ENSTilMwAxB780a8onl3qfu wHxiLJ0WPEsXPGlK6NoLZ6k OUXweMHkYLhwauQaDwN1GMa pJLQwIfR7XAPmdWYcRZQvC2 39NSS6rBrlw5ifFKX5ETSuA TVzVrLjTa7dgCPcU751HLVt OCKJFRGuiPg1DFWfgnIpkdT pxEYIq143E651a8jsVVCjwn HnaVpZvkdmt4thE678TDLht GVydzEyMjQwXHBhcGVyaDE1 UAHqSK1eoxsgKZG2JCoeYNZ yasMnONQnkEGaW6G3ZbAluE ZdG8QhFOldAOAmjcf3AvLzU a4kbIJaeCP0LPcci9xxt0vb cWYiHei3SXTvJzRtFqvoYQs yh9Haj3acZEPskm2sJOV5sX DgaNhlc2U5vQSdPPOfuENoj qJyNQStZsD4QPejJW7gde29 YSBjJYC8dd0mwRQrkQrjmiC xzAWmZWgpB0EvGINzy802AK KrF9AiBJKje1I2qcYzGjYwJ WIbsNE8iaT2NUGuNYx8nRHu txG7rlLdjOKkP6xjaE0qDFm qSV1entqgy2avQYN3CTiuZS YeaUP8qhtaZYeeHHLdMwW2v jPojEIzITVsaCpcYQoij620 EBW3KxMzYMBkp9BxM5KdsVb qK11foUaaU00xBALawEezeE 8grEmmlL5nSsSfJqQdFQvjS XJkXHBsYWluXGYwXGZzMjBc sNpagG9gSdUtHdWpThohWK2 wRINjK7akwLRvADBzFPJiX4 rqQsDvbP7kdNqaCPcvEiEkX fExRafeJGJtqyIhha2lQOUc oeEwsyXtuHTgVVVqPdzgF4r 9f3OqX4lcj4kwU4gqdEHrfF pccGFyIFVuaXZlcnNpdHkgb 5TpPGY2UMYyOPNfxVIzbFFH bnSrL2tbSYYjj2CodS1icJE FUQU1zLVehlCaSRerTFg9NM QOgJE8HFOgrOD8d5paNZNrD rI0ZEZAiQcqEEJtYCE3HFjy M559nDsmcKAnVMNqWTUaGIm lPOUvMCYvJhRpfIhbaH2mWj DpRiKdDkccPJ0kLDOrK4jlc ISbQRIyVQZkW9zcOkYabS4b aFxmMVxjZjFcZnMxNlxpIEx mECd7LFCBkVZ7BYSYRKO8Hg I1E9zcyFYsrfmcCHohmuDhL HBhclxwYXJ9 LMP (test code = 1309705675) Educational Note (test c7hzmIWqNESff6ycXAVtiPP code = 6501869115) uZzEwMzNcZnRuYmpcdWMxIH abyhBkQGmvd1NfV7DdREVoC FxhbnNpXGRlZmxhbmcxMDMz MTN1hmGfSOClBRioMJOsKXf gWp0edMHxoBmvXqYmYWYrf6 btcmBKgkblrSh9n3cdWTOeS lG5bFMhHQmwL3rtxpNlxLFp FSIoHVx9wG68SRKpfC9guKW bESrabzEwFsF7BBvnDLMnGx M7QQZpcIZvQSBdU8eaNWSbZ UAtX2QnYJ5lDddnTgd1MJW8 IDtccmVkMFxncmVlbjBcYmx 6SFJrD750JUP6bPtwc1lhCL C3XDSkZLMjJfJzTm6hyZUgV 420JFRvERUHSAJvvCw2NJFz hyTrvgEbhBUXz622Y081g0x tHAWineAzwFlQnzsod8jcF3 19XHBhcGVydzEyMjQwXHBhc QSkhSN8TJZiWL4bqnzwXVim LGsvMPPcjzY8QIRoiEUaR2W yHUGrWM0tqryrNGJ7ADkxGK SwOAG1ZcDlSVEan1Hkvzv1T yGjvf3wwx56DWV7a9FajSzk RKE4AYU7FwOvVt6csRYkVAM mLG2jKxRmrHGhEBOcvq45cX usJPovrhKskH7hMhYoZGKlr ROgBQCzCF3nxGIaFYYcoJ5i cmxjXHBnYnJkcmhlYWRccGd fayMuYy0xyUljKUA3WOihF7 anlU4tZsY3KYiyP2hgrA6hQ Zt4OJdjqGZ9CWTufO3bWG8a hyfed1ayWUakHGchHSHvwvC 2yuE9OPLgiACoT5XcgZ5cPV EgRU9zyhtqp9ntFTB6NHduU QMhMDU1FrAkWCHcj2Sootb1 XgWrc6WzjVLqGBejZ89pa74 8PBEzyxApZ9egkAVhqguayW UkhxjkWTdcsnF9ZDLfSECjM WluXGYxXGZzMjJcbGFuZzEw MzNcaGljaFxmMVxkYmNoXGY sMRmpB8tmYpSpP9ZdKJOtWt SkzNEMSUO4dSKxzLSbaTSih Y9nrFSdEVXeBJNva3DeQRsy KONyh9PzFHGcoQ6dBBXpf6U ruSYtxJDxpBb6UISeoyUnyV DrrU87dzTxLM2jMRLiYHThB ZMcroHuxISzz4UkPtIYvHBh yXIraQLtXLTyEJ2omX2eEOH zjbUnYWP0jIMyj2daVKIlg2 LbHhqpaBB0WI7nIAQgeCJxG J3bW7R9pJLfNQIbLZJsHMmf ZB6da3NzjTe4BIOqAFA6lZX mYfAhElPlcCtglcItTH0fwS bhSvFkouKyDr8pqT74JGZoH C9lCLIbTMbfcRJmjdChMQTo pO9wC6DyCVDhN17fCQArDWW ezX1zxU3cqwCixzNquxLui5 6zAQ6iRHSvoV2skDrmhN3da mUgdGhlIGVmZmVjdCBvZiBm QHyaQCRhYQlewZs9ZSWxALN 7bMQpUjFuQR41ksCpCQGzHQ 46KUBuc6BqDISwYSGnWS5yw jGzNSF5akOux76nbHr8IDtv nVYcfH9sGCiyzSEsvTZgXbB naXGpPUfwYPCsMA3aMSBbFJ 55IHVuZXhwbGFpbmVkIGNsa A6rL5YmBMHfI67sVEVyATGi iW3rzC8rghupvxHpROPokIC zcyBvZiBhbnkgUGFwIFRlc3 UiflPhnSs0UtlquJZpdjnnP VxmczIyXGxhbmcxMDMzXGhp N2tqGlVcLTVaoMvlVQbmx1U oXGYxXGZzMjJccGFyfX0= Embedded Images (test code = 4768717883) [facility] ONLY PAP SMEAR-LIQUID [id number] 15:19:00 Test Item Value Reference Range Interpretation Comments Case Report (test code Gynecologic = [id number]) Cytology?Case: [id number]? Authorizing Provider:?Lindy Godwin,?Collected:? 01/26/2019 1135?? [facility]?Ordering Location:? [facility]-? Received:?01/26/2019 2341?? [place]? First Screen:?Dennise Munroe? Specimen:?Liquid Based Pap Preparation, CERVIX? Clinical Information routine (test code = 1735840251) Specimen Adequacy Satisfactory for (test code = 80886-1) Evaluation(Endocervical /Transformation Zone Component Absent) Interpretation (test Negative for code = 71711-4) intraepithelial lesion or malignancy Other Findings (test Shift In Blossom code = 1594582897) Suggestive Of Bacterial Vaginosis Comments (test code = b9xujQJgIFYqaQYzOhBkUXB 7814945261) qLBLzx2kzJVPgjOXnBtCfDr NcZnRuYmpcdWMxXGRlZmYwe 3ffz618gADsg4blFUHeJgA4 zUDhVMVwpYAuM600RDBaEMx pr8sdy2IfWYRxzKJbz3T0AY FOEJyvTqHcG428z0pfl9vjo kQtfHN3XWIqOHZeQ1BiIQ7r GXUyvWReWOjvtdBzDuD7VId nSWKvUdK0ZLRliTKvKZXuV8 00IUM3cIzed3dgCCB9KWPeX TMvOxCpPo0pmICsP486BZIp KJWBQTTxvGb3QBXeyfJzgrD opRVDi468A047n5wiRIObrp SktXtMcovmf7zuZ337JJZdi GVydzEyMjQwXHBhcGVyaDE1 NPGoPI1bymuoVNV4AZlaTYM husLnTBQvmCMhB6Z5BmLvmG CqU8UmPPzaPPCmwad8OmIpB c3aqEXsaXB0VGrml0klw3zq nNHuUgs3AZLrXkMxOreiUPk bv3Nqx2skSQFjml8rIEI3iR PccLdei7X0lNIeUYOetSUoa aZgCINaOgX4KVifUK9hfw62 ZIViDUF9jj5cgREepGxycgU avIKoONepE2QyFBSww788ZI BwN0XuKFQkx6L1phUpCkWjF VHluAC9qtN7GNTbLLs6jMPa bdE1asYrcREwF5cxvM7vDSa yRQ7afbqcs9txICV5QXtuBC WyjFN2pqcfYUvsDWXoHmM8b mBokXMgQROcsUoxXBtos315 ZDY2YjOhHQLmf0JdU9DzjMt wV85miUxbT47dKYUkbVjhbT 1urBszpH3hWpPfJwSwQPmuL XJkXHBsYWluXGYwXGZzMjBc nYdupQ6pOcLoTmTpRkmlLU6 eLZBkU1ceuPPiFVSzKRPrW2 mfRyOlsJ2evCwdRZqaObRrU sPuEpqpXLFzklPtxg0sEBWx hqJxclTkqNZmUQVvRxgyW3z 5k9VzB9emb6qlR2sicOHdmZ pccGFyIFVuaXZlcnNpdHkgb 3XnFHC5KQFaYBXobXHuuPYJ qjVbL9yxJNWob0RjxD2kxIX XWRP5bTXocqXbQKgsTFf4LV LLrAZ7DEXlaJU0z1vvMKLmC kX3INPItTjxEMQuFEQ1EPqv G592qErlaRUtALGhBBXtIYn oSAThOFTjBhOeiGrfgM0iCz XzDdTlJjmfEA3gLZXkM0mdv JTnKBQuBWQoZ4rwQpDqhG8h aFxmMVxjZjFcZnMxNlxpIEx pCMb4VEPVtSA9SLKEWGE6Wq P6D1epeSAtwpgkYRyfnmRrD HBhclxwYXJ9 LMP (test code = 0739529952) Educational Note (test l2whxOCjRWRlb2icSGQkiNP code = 7621312985) uZzEwMzNcZnRuYmpcdWMxIH ywpjUkFFqhh9HzH8BgBGAnR FxhbnNpXGRlZmxhbmcxMDMz YZY9ynPuJFTtZYfmFSBwAJb oPk2tcQYoqTzzVvEbNBQzs1 kbvgXUbmytwQh9o9giZQPyB pH6iQZnFJpeL9clkeEpuXMz ECOpOFe7bC16HEUyyA5eyFR bFFanouVxFaF7CRrdXHApFf W2NNAtzIKgGFLkU7vjDGYgS NLbJ5RoCA6yMibbHpz3JYL0 IDtccmVkMFxncmVlbjBcYmx 9WITzM508QJO4qKfyk6oqGF V3JLSrWOUcRxDpKe0amRAxK 583OXTlAWWISTKvkAe0MWLy urGmxkCwiNYJs623E728t8d iDRGgiwBsiZuNlcnau6tpR0 19XHBhcGVydzEyMjQwXHBhc CDxzWW7CEIrFR5ysfuhAAki RLswHPRlhmU7ZFYdkMRvG5L tHUHnTN4nkrkcGCF5JDayHG XwNLR6ZnNlAFKtk4Lxfmk5C qCnkw2wsc25TPH4r5VjvKaf WHJ5SNK1VuQmOz3ehPHtPAY yZM5bCeRuqKBtQQCypo41pS eaMLkhskKrkS6pFmDtZHBez XTdSSMePV1btTAlZFUgzR6u cmxjXHBnYnJkcmhlYWRccGd onlZcVt6gsFwwMYL3YMyiZ7 sqtI8uRgZ3QSwmE9ausL2nN Sz0PWbnbLH2TASycP2jFM4c pbkyv8atHJogDZtoIZXefbQ 2huH0BPAdrMLfH2QjgD3fIO WtMC2hjmazw9xhOCA9UBifE XWlUGN7MyAeANKvl0Sausy4 TeWsm6EfbMAdFTknH70si06 1DQIewkSkC7wdkDSwmfdngP HvxsaeAGllhoJ5CJNbZPWfU WluXGYxXGZzMjJcbGFuZzEw MzNcaGljaFxmMVxkYmNoXGY cSFnnH3jjEbDxP8JeCVHeSn JiuSRDYXR4yJPdwJIypRDnw P9eiTJwBMBpUKUjh1YfACha BVJmg0BiSUDfdX5kAMZvk4Q trUFzqSUpgUx5IEJuktBrcO OvnI70iiUaFC4oXAIaGPMkF QIfcgQivTIoi9RpUsIRkMDx yFNqeYNxXWXlRL6edO0yLOE vbeJhGZR8kEEpj4oeJNElq8 TvDerxbXU7XH7sQLPnrCNuX X9qM0A9uMJdQPUpPJVqDSac QM7ok5QfuFu8JMAfSBR7rPQ gCaUlOsWalEzknfMxES3mgZ uvMpDjwjUpQh1hbU76CFMgN B6yENVyCTnttACjpyEeJUMa tK2uK9SvNSIjK90zORUdARX lqJ7dhO1ugyIpluSbbzInr0 0lLM8kYJPjvT6zdOiaoF3ox mUgdGhlIGVmZmVjdCBvZiBm AIwxFXHaMDflsCe8NHSeINB 5nSGvQqQnDP32ueVsBLFpHZ 15BIZuq1TsGRGuOGGcPJ3dg lWoLBS0qsVan25mzSw0ADbo oIRovM1xPMypfBHrbDCmDeZ roQSkQHbmUSArVS0jNPRyLV 55IHVuZXhwbGFpbmVkIGNsa V0gI2YsHADqE65bPEVxKSIf nL7uzE0tyiemkrEbXGBqsJF zcyBvZiBhbnkgUGFwIFRlc3 QqkjIanSa1YkjwlHWwegxeD VxmczIyXGxhbmcxMDMzXGhp W2ryGmMaGOMetFpgJTtrp5O oXGYxXGZzMjJccGFyfX0= Embedded Images (test code = 2722988350) [facility] [id number] 12:23:00 Test Item Value Reference Range Interpretation Comments URINE CULTURE (test > 100,000 CFU/mL mixed code = 630-4) aerobic organisms - suggests endogenous microbial contamination [facility] [id number] 12:23:00 Test Item Value Reference Range Interpretation Comments URINE CULTURE (test > 100,000 CFU/mL mixed code = 630-4) aerobic organisms - suggests endogenous microbial contamination [facility] AMPLIFIED [id number] 23:43:00 Test Item Value Reference Range Interpretation Comments Lab Interpretation (test code = Normal 22972-9) [facility] CHLAMYDIA AMPLIFIED [id number] 23:43:00 Test Item Value Reference Range Interpretation Comments Lab Interpretation (test code = Normal 55567-9) [facility]) [id number] 16:17:00 Test Item Value Reference Range Interpretation Comments Rubella screen IgG Positive Negative (test code = 2785714557) LUTHER (test code = LUTHER) Positive - Indicates the patient was exposed to Rubella through infection or vaccination.Negative - Indicates the patient could be susceptible to Rubella infection.Equivocal - A second specimen should be sent. [facility] [id number] 16:17:00 Test Item Value Reference Range Interpretation Comments VZV IgG antibody Positive Negative (test code = 87017-4) LUTHER (test code = LUTHER) Positive - Indicates the patient was exposed to VZV through infection or vaccination.Negative - Indicates the patient could be susceptible to VZV infection.Equivocal - A second specimen should be sent for testing. [facility] [id number] 16:17:00 Test Item Value Reference Range Interpretation Comments Rubella screen IgG Positive Negative (test code = 6263835768) LUTHER (test code = LUTHER) Positive - Indicates the patient was exposed to Rubella through infection or vaccination.Negative - Indicates the patient could be susceptible to Rubella infection.Equivocal - A second specimen should be sent. [facility] [id number] 16:17:00 Test Item Value Reference Range Interpretation Comments VZV IgG antibody Positive Negative (test code = 83277-9) LUTHER (test code = LUTHER) Positive - Indicates the patient was exposed to VZV through infection or vaccination.Negative - Indicates the patient could be susceptible to VZV infection.Equivocal - A second specimen should be sent for testing. [facility] SY[facility]IL[facility] [id number] 14:51:00 Test Item Value Reference Range Interpretation Comments Syphilis IgG/IgM (test Non-reactive Non-reactive code = 33450-4) LUTHER (test code = LUTHER) Non-reactive - No serologic evidence of T. pallidum infection. Cannot exclude incubating or early syphilis. Submit a second specimen in 2-4 weeks if syphilis is clinically suspected.Equivocal - Further testing to follow.Reactive - Further testing to follow. Lab Interpretation (test Normal code = 58287-8) [facility] [id number] 14:51:00 Test Item Value Reference Range Interpretation Comments Syphilis IgG/IgM (test Non-reactive Non-reactive code = 52804-1) LUTHER (test code = LUTHER) Non-reactive - No serologic evidence of T. pallidum infection. Cannot exclude incubating or early syphilis. Submit a second specimen in 2-4 weeks if syphilis is clinically suspected.Equivocal - Further testing to follow.Reactive - Further testing to follow. Lab Interpretation (test Normal code = 86439-8) [facility] TITER [id number] 11:22:09 Test Item Value Reference Range Interpretation Comments TITERED AB (test Ab Titered: Fya Performe d at [facility] code = 1141) Laboratory [address] s [id number] Free: [phone] A No. [id number] AB TITER (test Antibody Titer: <1 Perform ed at [facility] code = 247) Laboratory [address] s [address]Wywv Free: [phone] A No. [id number] [facility] PasoANTIBODY TITER [id number] 11:22:09 Test Item Value Reference Range Interpretation Comments TITERED AB (test Ab Titered: Fya Performe d at [facility] code = 1141) Laboratory [facility] [address] s [address]Whnt Free: [phone] A No. [id number] AB TITER (test Antibody Titer: <1 Perform ed at [facility] code = 247) Laboratory [facility] [address] s [address]Hgkl Free: [phone] A No. [id number] [facility]ANT[facility] TITER [id number] 11:22:06 Test Item Value Reference Range Interpretation Comments TITERED AB (test Ab Titered: K Performed at [facility] code = 1141) Laboratory [address] s [address]Fdqf Free: [phone] A No. [id number] AB TITER (test Antibody Titer: <1 Perform ed at [facility] code = 247) Laboratory [facility] [address] s [address]Hiux Free: [phone] A No. [id number] [facility] PasoANTIB[facility] TITER [id number] 11:22:06 Test Item Value Reference Range Interpretation Comments TITERED AB (test Ab Titered: K Performed at [facility] code = 1141) Laboratory [address] s [address]Zdiv Free: [phone] A No. [id number] AB TITER (test Antibody Titer: <1 Perform ed at [facility] code = 247) Laboratory [address] s [address]Ryav Free: [phone] A No. [id number] [facility] [id number] 10:41:26 ANTIBODY SFOcfp-BmmOcih-D Comment: Performed at [facility] Laboratory Services [facility] Blood [address] [address]Erck Free: [phone] No. [id number] [facility] IDENTIFICATION 2019-01-27 10:41:26ANTIBODY EJFouf-XaxCzyh-M Comment: Performed at [facility] Blood [address] [address]Zvvi Free: [phone] No. [id number] [facility] [id number] 10:41:26ANTIBODY COGxid-PpmYoik-R Comment: Performed at [facility] Laboratory Services - [facility] Blood [address] [place], [place] [address]Lule Free: [phone] No. [id number] [facility] PasoPANEL [id number] 10:41:26ANTIBODY XGEygv-YezNlej-F Comment: Performed at [facility] Laboratory Services - [facility] Blood [address] [place], [place] [address]Uazh Free: [phone] No. [id number] LAB[facility] PasoHCV [id number] 09:46:00 Test Item Value Reference Range Interpretation Comments HCV Semi-Quantitative (test code = 10932-6) [facility] PasoHIV 1/2 AG-AB WITH [id number] 09:46:00 Test Item Value Reference Range Interpretation Comments HIV Negative Negative Semi-quantitative (test code = 36135-3) LUTHER (test code = Non-reactive for HIV-1 LUTHER) antigen and HIV-1/HIV-2 antibodies.?No laboratory evidence of HIV infection.?Repeat in 2-4 weeks if acute HIV infection is suspected. [facility] PasoHCV [id number] 09:46:00 Test Item Value Reference Range Interpretation Comments HCV Semi-Quantitative (test code = 24708-0) [facility]/2 AG-AB WITH [id number] 09:46:00 Test Item Value Reference Range Interpretation Comments HIV Negative Negative Semi-quantitative (test code = 05764-7) LUTHER (test code = Non-reactive for HIV-1 LUTHER) antigen and HIV-1/HIV-2 antibodies.?No laboratory evidence of HIV infection.?Repeat in 2-4 weeks if acute HIV infection is suspected. [facility] PasoANTIGEN TYPING [id number] 09:35:20 Test Item Value Reference Range Interpretation Comments ANTIGEN ID (test Leb Antigen Performed a t [facility] code = 1687) Negative Laboratory Serv ices - [facility] Blood Ban [address] [facility] s [address]Rhym Free: [phone] A No. [id number] ANTIGEN ID (test M Antigen Positive Perfo rmed at [facility] code = 62) Laboratory [address] [address]Lybx Free: [phone] A No. [id number] ANTIGEN ID (test N Antigen Negative Perfo rmed at [facility] code = 63) Laboratory [address] [address]Lmsl Free: [phone] A No. [id number] ANTIGEN ID (test Tg Antigen Performed a t [facility] code = 64) Positive Laboratory [address] [address]Fnva Free: [phone] A No. [id number] ANTIGEN ID (test Fya Antigen Performed a t [facility] code = 1688) Negative Laboratory [address] [address]Ppbk Free: [phone] A No. [id number] [facility] PasoANTIGEN TYPING [id number] 09:35:20 Test Item Value Reference Range Interpretation Comments ANTIGEN ID (test Leb Antigen Performed a t [facility] code = 1687) Negative Laboratory [address] [address]Vkxz Free: [phone] A No. [id number] ANTIGEN ID (test M Antigen Positive Perfo rmed at [facility] code = 62) Laboratory [address] [address]Drma Free: [phone] A No. [id number] ANTIGEN ID (test N Antigen Negative Perfo rmed at [facility] code = 63) Laboratory [address] s [address]Axet Free: [phone] A No. [id number] ANTIGEN ID (test Tg Antigen Performed a t [facility] code = 64) Positive Laboratory [address] s [address]Fwhf Free: [phone] A No. [id number] ANTIGEN ID (test Fya Antigen Performed a t [facility] code = 1688) Negative Laboratory [facility] [address] [address]Zlwk Free: [phone] A No. [id number] [facility] B SURFACE [id number] 09:30:00 Test Item Value Reference Range Interpretation Comments HBsAg Semi-Quantitative (test code = 5195-3) [facility] B SURFACE [id number] 09:30:00 Test Item Value Reference Range Interpretation Comments HBsAg Semi-Quantitative (test code = 5195-3) [facility] PasoANTIGEN TYPING [id number] 08:58:34 Test Item Value Reference Range Interpretation Comments ANTIGEN ID (test Fyb Antigen Performed a t [facility] code = 1687) Positive Laboratory [facility] [address] [address]Ttym Free: [phone] A No. [id number] [facility] PasoANTIGEN TYPING [id number] 08:58:34 Test Item Value Reference Range Interpretation Comments ANTIGEN ID (test Fyb Antigen Performed a t [facility] code = 1687) Positive Laboratory [facility] [address] [address]Hpfj Free: [phone] A No. [id number] [facility] PasoANTIGEN TYPING [id number] 08:49:20 Test Item Value Reference Range Interpretation Comments ANTIGEN ID (test Jkb Antigen Performed a t [facility] code = 1687) Positive Laboratory [facility] [address] [address]Qnit Free: [phone] A No. [id number] ANTIGEN ID (test P1 Antigen Performed a t [facility] code = 62) Positive Laboratory [facility] [address] [address]Kioe Free: [phone] A No. [id number] ANTIGEN ID (test S Antigen Negative Perfo rmed at [facility] code = 63) Laboratory [address] [address]Cxuv Free: [phone] A No. [id number] ANTIGEN ID (test s Antigen Positive Perfo rmed at [facility] code = 64) Laboratory [address] [address]Fpiz Free: [phone] A No. [id number] ANTIGEN ID (test e Antigen Positive Perfo rmed at [facility] code = 1688) Laboratory [address] [address]Lhtd Free: [phone] A No. [id number] [facility] PasoANTIGEN TYPING [id number] 08:49:20 Test Item Value Reference Range Interpretation Comments ANTIGEN ID (test Jkb Antigen Performed a t [facility] code = 1687) Positive Laboratory [address] [address]Xvtm Free: [phone] A No. [id number] ANTIGEN ID (test P1 Antigen Performed a t [facility] code = 62) Positive Laboratory [address] [address]Fpsi Free: [phone] A No. [id number] ANTIGEN ID (test S Antigen Negative Perfo rmed at [facility] code = 63) Laboratory [address] [address]Lkig Free: [phone] A No. [id number] ANTIGEN ID (test s Antigen Positive Perfo rmed at [facility] code = 64) Laboratory [address] [address]Iiow Free: [phone] A No. [id number] ANTIGEN ID (test e Antigen Positive Perfo rmed at [facility] code = 1688) Laboratory [address] [address]Kpyv Free: [phone] A No. [id number] [facility] PasoANTIGEN TYPING [id number] 08:32:43 Test Item Value Reference Range Interpretation Comments ANTIGEN ID (test C Antigen Positive Perfo rmed at [facility] code = 1687) Laboratory [facility] [address] [address]Gjzm Free: [phone] A No. [id number] ANTIGEN ID (test c Antigen Positive Perfo rmed at [facility] code = 62) Laboratory [facility] [address] [address]Fbaw Free: [phone] A No. [id number] ANTIGEN ID (test E Antigen Positive Perfo rmed at [facility] code = 63) Laboratory [facility] [address] [address]Eugq Free: [phone] A No. [id number] ANTIGEN ID (test K Antigen Negative Perfo rmed at [facility] code = 64) Laboratory [facility] [address] [address]Toai Free: [phone] A No. [id number] ANTIGEN ID (test Jka Antigen Performed a t [facility] code = 1688) Positive Laboratory [facility] [address] [address]Fhgk Free: [phone] A No. [id number] [facility] PasoANTIGEN TYPING [id number] 08:32:43 Test Item Value Reference Range Interpretation Comments ANTIGEN ID (test C Antigen Positive Perfo rmed at [facility] code = 1687) Laboratory [facility] [address] [address]Xmil Free: [phone] A No. [id number] ANTIGEN ID (test c Antigen Positive Perfo rmed at [facility] code = 62) Laboratory [facility] [address] s [address]Fcao Free: [phone] A No. [id number] ANTIGEN ID (test E Antigen Positive Perfo rmed at [facility] code = 63) Laboratory [facility] [address] [address]Zrvc Free: [phone] A No. [id number] ANTIGEN ID (test K Antigen Negative Perfo rmed at [facility] code = 64) Laboratory [facility] [address] [address]Udrp Free: [phone] A No. [id number] ANTIGEN ID (test Jka Antigen Performed a t [facility] code = 1688) Positive Laboratory [facility] [address] [address]Tyka Free: [phone] A No. [id number] [facility] WORKUP, BLOOD [id number] 07:33:05 Test Item Value Reference Range Interpretation Comments ABO & RH (test code O POSITIVE Performe d at [facility] = 20) Laboratory [facility] [place] [address]Csgb Free: [phone] A No. [id number] IAT (test code = Positive Performed a t [facility] 1185) Laboratory [facility] [address] [place] [address]Zjbe Free: [phone] A No. [id number] [facility] WORKUP, BLOOD [id number] 07:33:05 Test Item Value Reference Range Interpretation Comments ABO & RH (test code O POSITIVE Performe d at [facility] = 20) Laboratory [facility] [address] [place] [address]Ebtn Free: [phone] A No. [id number] IAT (test code = Positive Performed a t [facility] 1185) Laboratory [facility] [address] [place] [address]Xwvy Free: [phone] A No. [id number] [facility] PasoGLUCOSE 1 HOUR POST [id number] 04:06:00 Test Item Value Reference Range Interpretation Comments GLUC 1 HR (test code = 1405720284) 116 mg/dL 120-170 L Lab Interpretation (test code = Abnormal 47423-2) [facility] PasoGLUCOSE 1 HOUR POST [id number] 04:06:00 Test Item Value Reference Range Interpretation Comments GLUC 1 HR (test code = 2378233624) 116 mg/dL 120-170 L Lab Interpretation (test code = Abnormal 56122-9) [facility] PasoCB WITH [id number] 03:24:00 Test Item Value Reference Range Interpretation Comments WBC (test code = See_Comment [Automated 2190-2) message] The sy stem which generated this result transmitted reference range : 4.30 - 11.10 10*3/?L. The reference range was not used to interpret this result as normal/abnormal . RBC (test code = See_Comment H [Automated 069-8) message] The sy stem which generated this result transmitted reference range : 3.93 - 5.25 10*6/?L. The reference range was not used to interpret this result as normal/abnormal . HGB (test code = 15.1 g/dL 11.6-15 H 718-7) HCT (test code = 46.9 % 35.7-45.2 H 4544-3) MCV (test code = 84.8 fL 80.6-95.5 787-2) MCH (test code = 27.3 pg 25.9-32.8 785-6) MCHC (test code = 32.2 g/dL 31.6-35.1 786-4) RDW-SD (test code = 41.0 fL 39-49.9 35036-7) RDW-CV (test code = 13.2 % 12-15.5 788-0) PLT (test code = See_Comment [Automated 777-3) message] The sy stem which generated this result transmitted reference range : 166 - 358 10*3/ ?L. The reference r elsi was not used to interpret this result as normal/abnormal . MPV (test code = 9.9 fL 9.5-12.9 25944-0) NRBC/100 WBC (test See_Comment [Automat ed code = 4918970173) message] The system which generated this result transmitted reference range : 0.0 - 10.0 /100 WBCs. The refer ence range was not u sed to interpret th is result as normal/abnormal . NRBC x10^3 (test code <0.01 See_Comment [Auto mated = 0750015151) message] The s ystem which generated this result transmitted reference range : 10*3/?L. The reference range was not used to interpret this result as normal/abnormal . GRAN MAT (NEUT) % 73.4 % (test code = 770-8) IMM GRAN % (test code 0.50 % = 6563745102) LYMPH % (test code = 18.3 % 736-9) MONO % (test code = 6.2 % 5905-5) EOS % (test code = 1.1 % 713-8) BASO % (test code = 0.5 % 706-2) GRAN MAT x10^3(ANC) 6.12 10*3/uL 1.88-7.09 (test code = 9040790850) IMM GRAN x10^3 (test 0.04 10*3/uL 0-0.06 code = 8565292474) LYMPH x10^3 (test code 1.53 10*3/uL 1.32-3.29 = 731-0) MONO x10^3 (test code 0.52 10*3/uL 0.33-0.92 = 742-7) EOS x10^3 (test code = 0.09 10*3/uL 0.03-0.39 711-2) BASO x10^3 (test code 0.04 10*3/uL 0.01-0.07 = 704-7) Lab Interpretation Abnormal (test code = 44092-6) [facility] WITH [id number] 03:24:00 Test Item Value Reference Range Interpretation Comments WBC (test code = See_Comment [Automated 6690-2) message] The sy stem which generated this result transmitted reference range : 4.30 - 11.10 10*3/?L. The reference range was not used to interpret this result as normal/abnormal . RBC (test code = See_Comment H [Automated 789-8) message] The sy stem which generated this result transmitted reference range : 3.93 - 5.25 10*6/?L. The reference range was not used to interpret this result as normal/abnormal . HGB (test code = 15.1 g/dL 11.6-15 H 718-7) HCT (test code = 46.9 % 35.7-45.2 H 4544-3) MCV (test code = 84.8 fL 80.6-95.5 787-2) MCH (test code = 27.3 pg 25.9-32.8 785-6) MCHC (test code = 32.2 g/dL 31.6-35.1 786-4) RDW-SD (test code = 41.0 fL 39-49.9 39692-7) RDW-CV (test code = 13.2 % 12-15.5 788-0) PLT (test code = See_Comment [Automated 777-3) message] The sy stem which generated this result transmitted reference range : 166 - 358 10*3/ ?L. The reference r elsi was not used to interpret this result as normal/abnormal . MPV (test code = 9.9 fL 9.5-12.9 65980-3) NRBC/100 WBC (test See_Comment [Automat ed code = 3483225035) message] The system which generated this result transmitted reference range : 0.0 - 10.0 /100 WBCs. The refer ence range was not u sed to interpret th is result as normal/abnormal . NRBC x10^3 (test code <0.01 See_Comment [Auto mated = 7873910910) message] The s ystem which generated this result transmitted reference range : 10*3/?L. The reference range was not used to interpret this result as normal/abnormal . GRAN MAT (NEUT) % 73.4 % (test code = 770-8) IMM GRAN % (test code 0.50 % = 2243436479) LYMPH % (test code = 18.3 % 736-9) MONO % (test code = 6.2 % 5905-5) EOS % (test code = 1.1 % 713-8) BASO % (test code = 0.5 % 706-2) GRAN MAT x10^3(ANC) 6.12 10*3/uL 1.88-7.09 (test code = 6039350170) IMM GRAN x10^3 (test 0.04 10*3/uL 0-0.06 code = 2330852612) LYMPH x10^3 (test code 1.53 10*3/uL 1.32-3.29 = 731-0) MONO x10^3 (test code 0.52 10*3/uL 0.33-0.92 = 742-7) EOS x10^3 (test code = 0.09 10*3/uL 0.03-0.39 711-2) BASO x10^3 (test code 0.04 10*3/uL 0.01-0.07 = 704-7) Lab Interpretation Abnormal (test code = 98924-9) [facility] [id number] 15:27:00 Test Item Value Reference Range Interpretation Comments POCT PREG (test code = 1605) Positive On board controls acceptable with C Yes Line (test code = 3574) POCT PREG LOT # (test code = 3575) POCT PREG TEST DATE (test code = 357) [facility] URINALYSIS W/O SPECIFIC [id number] 15:27:00 Test Item Value Reference Range Interpretation Comments POCT PH U (test code = 3254) 5 mg/dl 5-8 POCT U LEUK EST (test code = Neg Negative - Negative 3263) POCT U NIT (test code = 3262) Neg Negative - Negative POCT U PROT (test code = 3259) Trace Negative - Negative POCT U GLU (test code = 3256) Neg Negative - Negative POCT U KETONE (test code = 3258) None Negative - Negative POCT U BLD (test code = 3257) Neg Negative - Negative [facility] [id number] 15:27:00 Test Item Value Reference Range Interpretation Comments POCT PREG (test code = 1605) Positive On board controls acceptable with C Yes Line (test code = 3574) POCT PREG LOT # (test code = 3575) POCT PREG TEST DATE (test code = 357) [facility]/O SPECIFIC [id number] 15:27:00 Test Item Value Reference Range Interpretation Comments POCT PH U (test code = 3254) 5 mg/dl 5-8 POCT U LEUK EST (test code = Neg Negative - Negative 3263) POCT U NIT (test code = 3262) Neg Negative - Negative POCT U PROT (test code = 3259) Trace Negative - Negative POCT U GLU (test code = 3256) Neg Negative - Negative POCT U KETONE (test code = 3258) None Negative - Negative POCT U BLD (test code = 3257) Neg Negative - Negative [facility]
[2021-08-03] MEDS ORDERED: ONDANSETRON 4 MG/2 ML VIAL ONE (20:39)
[2021-08-03] MEDS ORDERED: MECLIZINE HCL 12.5 MG TAB ONE (20:39)
--- NOTE | 2021-08-03 22:08 | RAD REPORT ---
EXAM DESCRIPTION: CT - Head Brain Wo Cont - 08/03/2021 9:58 pm CLINICAL HISTORY: Dizziness COMPARISON: None TECHNIQUE: Computed axial tomography of the head was obtained. IV contrast was not requested. All CT scans are performed using dose optimization technique as appropriate and may include automated exposure control or mA/KV adjustment according to patient size. FINDINGS: An intracranial bleed is not seen . The ventricles are normal in caliber. No extra-axial fluid collection is noted. Fluid within the sinuses/ mastoids is not seen. IMPRESSION: No acute intracranial abnormality is seen. If patient's symptoms persist MRI of the bra in would be recommended.
[2021-08-03] MEDS ORDERED: KETOROLAC 30 MG/ML INJ ONE (22:42)
[2021-08-03] MEDS ORDERED: NA CHLORIDE 0.9% 1,000 ML ONE (22:43)
--- NOTE | 2021-08-04 01:26 | ER ---
Nurse's Notes [facility] Name: Tyra Ribera Age: 30 yrs Sex: Female : 1990 Arrival Date: 08/03/2021 Time: 19:51 Bed 23 Private MD: Basilio Martínez Diagnosis: Benign paroxysmal vertigo;Cellulitis of umbilicus Presentation: 08/03 20:08 Chief complaint: Patient states: Pain in shoulder/neck for the past two weeks. Pt c/o ld1 vertigo. Belly button is red and swollen. Coronavirus screen: At this time, the client does not indicate any symptoms associated with coronavirus-19. Ebola Screen: No symptoms or risks identified at this time. Initial Sepsis Screen: Does the patient meet any 2 criteria? No. Patient's initial sepsis screen is negative. Does the patient have a suspected source of infection? No. Patient's initial sepsis screen is negative. Risk Assessment: Do you want to hurt yourself or someone else? Patient reports no desire to harm self or others. Onset of symptoms was August 03, 2021. 20:08 Method Of Arrival: Ambulatory ld1 20:08 Acuity: BREANNA 3 ld1 Triage Assessment: 20:08 General: Appears in no apparent distress. comfortable, Behavior is calm, cooperative, ld1 drowsy. Pain: Denies pain. EENT: Reports blurred vision. Neuro: Level of Consciousness is awake, alert, obeys commands, Oriented to person, place, time, situation, Reports blurred vision dizziness. Respiratory: Airway is patent Respiratory effort is even, unlabored, Respiratory pattern is regular, symmetrical. 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 - Social history:: Smoking status: Patient denies any tobacco usage or history of. Patient/guardian denies using alcohol. Screenin:07 Abuse screen: Denies threats or abuse. Denies injuries from another. Nutritional [place] screening: No deficits noted. Tuberculosis screening: No symptoms or risk factors identified. Fall Risk None identified. Assessment: 20:17 General: Appears in no apparent distress. uncomfortable, Behavior is calm, cooperative. [place] Pain: Denies pain. Neuro: Reports dizziness. Cardiovascular: No deficits noted. Respiratory: No deficits noted. GI: No deficits noted. : No deficits noted. EENT: No deficits noted. Derm: Reports Surgical site to umbilicus red and "itchy", per the pt. I told her that she should F/U with surgeon that did the gastric bypass. She has an appt "soon". Musculoskeletal: No deficits noted. 21:40 Neuro: Reports dizziness, has improved since medications. [place] 22:02 General: The pt has returned from CT. . [place] 22:13 General: The pt c/o pain to her shoulders and head. 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 Her is at [place] bedside . 23:55 General: The pt is resting comfortably with her at bedside. Awaiting dispo. . [place] Vital Signs: 20:08 BP 122 / 86; Pulse 72; Resp 18; Temp 97.8(TE); Pulse Ox 100% on R/A; Weight 116.57 kg; ld1 Height 5 ft. 4 in. (162.56 cm); Pain 0/10; 20:45 BP 122 / 72; Pulse 58; Resp 18; Pulse Ox 100% on R/A; [place] 21:41 BP 108 / 56; Pulse 58; Resp 16; Pulse Ox 100% on R/A; Pain 0/10; [place] 22:12 BP 94 / 58; Pulse 56; Resp 16; Pulse Ox 99% on R/A; Pain 6/10; [place] 23:00 BP 110 / 59; Pulse 60; Resp 18; Pulse Ox 100% on R/A; Pain 5/10; [place] 23:30 Pain 3/10; [place] 23:50 BP 98 / 60; Pulse 54; Resp 16; Pulse Ox 98% on R/A; Pain 2/10; [place] 23:54 Pain 0/10; [place] 08/04 00:59 BP 99 / 55; Pulse 62; Resp 16; Temp 98.4; Pulse Ox 99% on R/A; Pain 0/10; [place] 01:37 BP 105 / 62; Pulse 60; Resp 16; Temp 98.5; Pulse Ox 99% on R/A; Pain 0/10; [place] 08/03 20:08 Body Mass Index 44.11 (116.57 kg, 162.56 cm) ld1 ED Course: 08/03 19:51 Patient arrived in ED. es 19:53 Basilio Martínez MD is Private Physician. es 20:08 Arm band placed on right wrist. ld1 20:11 Triage completed. ld1 20:22 Danie Aguilera NP is PHCP. pm1 20:22 Felton Salinas MD is Attending Physician. pm1 20:36 Radha Guerra RN is Primary Nurse. [place] 21:07 No provider procedures requiring assistance completed. Inserted saline lock: 20 gauge [place] in right antecubital area, using aseptic technique. 21:08 Patient has correct armband on for positive identification. Placed in gown. Bed in low [place] position. Call light in reach. Side rails up X 1. 21:[address] Scan. [place] 21:58 CT Head Brain wo Cont In Process Unspecified. EDMS 08/04 00:00 intact, bleeding controlled, No redness/swelling at site. Pressure dressing applied. [place] 00:00 Inserted saline lock: 20 gauge in left antecubital area, using aseptic technique. [place] 00:30 No apparent distress. Appears to be sleeping. [place] 01:11 Appears to be sleeping. [place] 01:48 intact, bleeding controlled, No redness/swelling at site. Pressure dressing applied. [place] Administered Medications: 08/03 20:55 Drug: Zofran (Ondansetron) 4 mg Route: IVP; Site: right antecubital; [place] 21:07 Follow up: Response: Nausea is decreased [place] 20:56 Drug: Meclizine 50 mg Route: PO; [place] 21:07 Follow up: Response: No adverse reaction [place] 23:00 Drug: Ketorolac 30 mg Route: IVP; Site: left antecubital; [place] 23:30 Follow up: Pain 3/10 Adult; Response: No adverse reaction [place] 23:00 Drug: NS 0.9% 1000 ml Route: IV; Rate: 1000 ml; Site: left antecubital; [place] 08/04 01:38 Follow up: IV Status: Completed infusion; IV Intake: 800ml [place] Intake: 01:38 IV: 800ml; Total: 800ml. [place] Outcome: 08/03 21:08 Condition: stable [place] 08/04 01:25 Discharge ordered by . pm1 01:47 Discharged to home ambulatory, with family. [place] 01:47 Discharge instructions given to patient, Instructed on discharge instructions, Demonstrated understanding of instructions, follow-up care, medications, Prescriptions given X 3. 01:48 Patient left the ED. [place] Signatures: Dispatcher [employer] EDOfelia Liu Patrick, REGIONAL TANKER TRUCK DRIVER REGIONAL TANKER TRUCK DRIVER pm1 Nicole Turpin, AGAPITO RN ld1 Radha Guerra RN RN [place]
--- NOTE | 2021-08-04 01:26 | EDPHYS ---
Physician Documentation [facility] Name: Tyra Ribera Age: 30 yrs Sex: Female : 1990 Arrival Date: 08/03/2021 Time: 19:51 Bed 23 Private MD: Basilio Martínez ED Physician Felton Salinas HPI: 08/03 20:46 This 30 yrs old Female presents to ER via Ambulatory with complaints of Dizziness, Neck pm1 and Upper Back Pain, Blurred Vision, INFECTED BELLY BUTTON. 20:46 The patient presents with vertigo. Onset: The symptoms/episode began/occurred neck pain pm1 for two weeks. Vertigo onset today. Context: Reports pinched nerve in neck and has been causing her neck and upper back pain. Has experienced this in the past. Modifying factors: The symptoms are alleviated by holding head still, the symptoms are aggravated by movement of head. Associated signs and symptoms: Pertinent positives: nausea, Pertinent negatives: chest pain, shortness of breath, vomiting, Fever. Severity of symptoms: in the emergency department the symptoms are worse. Patient's baseline: Neuro: alert and fully oriented, Motor: no deficits, Ambulation: walks without assistance. The patient has experienced similar episodes in the past, a few times, today's symptoms are similar, to previous Vertigo. The patient has not recently seen a physician. Patient reports prior bellybutton cellulitis in the past that resolved with antibiotic therapy. 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 - Social history:: Smoking status: Patient denies any tobacco usage or history of. Patient/guardian denies using alcohol. ROS: 20:46 Constitutional: Negative for fever, chills, and weight loss, Cardiovascular: Negative pm1 for chest pain, palpitations, and edema, Respiratory: Negative for shortness of breath, cough, wheezing, and pleuritic chest pain. 20:46 MS/Extremity: Negative for injury and deformity, Skin: Negative for injury, rash, and discoloration. 20:46 Abdomen/GI: Positive for nausea and vomiting, Negative for abdominal pain, diarrhea, constipation. 20:46 Back: Positive for of the left trapezius and right trapezius, Pain. 20:46 Neuro: Positive for dizziness, Negative for numbness, tingling, weakness. 20:46 All other systems are negative. Exam: 20:46 Constitutional: This is a well developed, well nourished patient who is awake, alert, pm1 and in no acute distress. Head/Face: Normocephalic, atraumatic. 20:46 Back: No spinal tenderness. No costovertebral tenderness. Full range of motion. Skin: Warm, dry with normal turgor. Normal color with no rashes, no lesions, and no evidence of cellulitis. MS/ Extremity: Pulses equal, no cyanosis. Neurovascular intact. Full, normal range of motion. 20:46 Eyes: Exam is negative for acute changes, Extraocular movements: no acute changes, Nystagmus: horizontal nystagmus left wards gaze. 20:46 ENT: Exam is negative for acute changes, External ear(s): no acute changes, Ear canal(s): no acute changes, TM's: no acute changes, Mouth: Lips: normal, moist, Oral mucosa: normal, pink and intact, moist. 20:46 Neck: External neck: tenderness, that is moderate, of the left trapezius and right trapezius, muscle spasm, C-spine: no acute changes. 20:46 Cardiovascular: Exam negative for acute changes, Rate: normal, Rhythm: regular, Pulses: no pulse deficits are appreciated. 20:46 Respiratory: Exam negative for acute changes, respiratory distress, shortness of breath. 20:46 Abdomen/GI: Exam negative for acute changes, Inspection: obese Palpation: abdomen is soft and non-tender, in all quadrants. 20:46 Neuro: Exam negative for acute changes, Orientation: is normal, Mentation: is normal, Motor: is normal, moves all fours. Vital Signs: 20:08 BP 122 / 86; Pulse 72; Resp 18; Temp 97.8(TE); Pulse Ox 100% on R/A; Weight 116.57 kg; ld1 Height 5 ft. 4 in. (162.56 cm); Pain 0/10; 20:45 BP 122 / 72; Pulse 58; Resp 18; Pulse Ox 100% on R/A; [place] 21:41 BP 108 / 56; Pulse 58; Resp 16; Pulse Ox 100% on R/A; Pain 0/10; [place] 22:12 BP 94 / 58; Pulse 56; Resp 16; Pulse Ox 99% on R/A; Pain 6/10; [place] 23:00 BP 110 / 59; Pulse 60; Resp 18; Pulse Ox 100% on R/A; Pain 5/10; [place] 23:30 Pain 3/10; [place] 23:50 BP 98 / 60; Pulse 54; Resp 16; Pulse Ox 98% on R/A; Pain 2/10; [place] 23:54 Pain 0/10; [place] 08/04 00:59 BP 99 / 55; Pulse 62; Resp 16; Temp 98.4; Pulse Ox 99% on R/A; Pain 0/10; [place] 01:37 BP 105 / 62; Pulse 60; Resp 16; Temp 98.5; Pulse Ox 99% on R/A; Pain 0/10; [place] 08/03 20:08 Body Mass Index 44.11 (116.57 kg, 162.56 cm) ld1 MDM: 08/03 20:22 Patient medically screened. pm1 08/04 01:24 Data reviewed: vital signs. Data interpreted: Pulse oximetry: on room air is 99 %. pm1 Interpretation: normal. Counseling: I had a detailed discussion with the patient and/or guardian regarding: the historical points, exam findings, and any diagnostic results supporting the discharge/admit diagnosis, radiology results, the need for outpatient follow up, to return to the emergency department if symptoms worsen or persist or if there are any questions or concerns that arise at home. 08/03 20:34 Order name: CT Head Brain wo Cont; Complete Time: 22:12 pm1 08/03 20:34 Order name: IV Saline Lock; Complete Time: 20:55 pm1 Administered Medications: 08/03 20:55 Drug: Zofran (Ondansetron) 4 mg Route: IVP; Site: right antecubital; [place] 21:07 Follow up: Response: Nausea is decreased [place] 20:56 Drug: Meclizine 50 mg Route: PO; [place] 21:07 Follow up: Response: No adverse reaction [place] 23:00 Drug: Ketorolac 30 mg Route: IVP; Site: left antecubital; [place] 23:30 Follow up: Pain 3/10 Adult; Response: No adverse reaction [place] 23:00 Drug: NS 0.9% 1000 ml Route: IV; Rate: 1000 ml; Site: left antecubital; [place] 08/04 01:38 Follow up: IV Status: Completed infusion; IV Intake: 800ml [place] Disposition: 07:12 Co-signature as Attending Physician, Felton Salinas MD I agree with the assessment and zack plan of care. Disposition Summary: 08/04/21 01:25 Discharge Ordered Location: Home pm1 Problem: new pm1 Symptoms: have improved pm1 Condition: Stable pm1 Diagnosis - Benign paroxysmal vertigo pm1 - Cellulitis of umbilicus pm1 Followup: pm1 - With: Emergency Department - When: As needed - Reason: Worsening of condition Followup: pm1 - With: Private Physician - When: 2 - 3 days - Reason: Recheck today's complaints, Continuance of care, Re-evaluation by your physician Discharge Instructions: - Discharge Summary Sheet pm1 - Benign Positional Vertigo pm1 - Cellulitis, Adult pm1 Forms: - Medication Reconciliation Form pm1 - Thank You Letter pm1 - Antibiotic Education pm1 - Prescription Opioid Use pm1 - Work release form mw2 Prescriptions: - Bactrim DS 800-160 mg Oral Tablet - take 1 tablet by ORAL route every 12 hours for 10 days; 20 tablet; Refills: 0, pm1 Product Selection Permitted - Meclizine 25 mg Oral Tablet - take 1 tablet by ORAL route every 8 hours As needed; 30 tablet; Refills: 0, pm1 Product Selection Permitted - Tylenol-Codeine #3 300 mg-30 mg Oral - take 2 tablet by ORAL route every 6 hours As needed; 20 tablet; Refills: 0, pm1 Product Selection Permitted Signatures: Dispatcher [employer] Felton Daigle MD MD cha Marinas, Patrick, HEAVY EQUIPMENT SUPERVISOR HEAVY EQUIPMENT SUPERVISOR pm1 Nicole Turpin RN RN ld1 Radha Guerra RN RN [place]
[2021-08-04 07:08] VITALS: O2SAT 99
[2021-08-04 07:09] VITALS: BP 105/62; TEMP 98.5
== END 2021-08-04 01:48 | disposition home or self-care (01) ==
LOC: ER 19:47
DX: H81.10 Benign paroxysmal vertigo, unspecified ear (principal); L03.316 Cellulitis of umbilicus; Z88.0 Allergy status to penicillin; Z91.040 Latex allergy status; Z91.048 Other nonmedicinal substance allergy status
CPT/HCPCS: 70450; J8597; J7030; J2405; 99284

== ENCOUNTER 2021-10-03 22:26 | Emergency (ER) | payer OTHER ==
--- OUTSIDE RECORDS SUMMARY | 2021-10-03 22:33 | XMS REPORT | Continuity of Care Document ---
:1990 Author Organization [facility] t Address [address] [place] [address] Care Team Providers Name Role Phone Gayathri GODWIN Primary Care Physician Unavailable Obinna, I Attending Clinician Unavailable Benny Montemayor Attending Clinician Unavailable Gayathri GODWIN Attending Clinician Unavailable Tato PEMBERTON C Attending Clinician Doctor Unassigned, Name Attending Clinician Unavailable Visit, Nurse Attending Clinician Unavailable Rachel Maki MD Attending Clinician Ultrasound Attending Clinician Unavailable Sheng BENOIT F Attending Clinician JAY Attending Clinician Unavailable [facility] Attending Clinician Unavailable Rodri BENOIT, M Attending Clinician Risk Attending Clinician Unavailable [facility] Attending Clinician Demetra Hinds Attending Clinician Eric Szymanski Attending Clinician Amy Yeboah Admitting Clinician Unavailable JAY Admitting Clinician Unavailable Rachel Maki MD Admitting Clinician Payers Payer Name Policy Type Policy Number Effective Date Expiration Date [facility] [id number] 2019 CHOICE MEDICAID 00:00:00 Problems Condition Condition Condition Status Onset Resolution Last Treating Co mments Source Name Details Category Date Date Treatment Clinician Date Sinus Sinus Disease Active Univers infection infection - ity of 00:00: [place] 00 Medical Branch Breakthrou Breakthrou Disease Active 2020-0 U nivers gh gh 8-13 ity of bleeding bleeding 00:00: [place] on on 00 Medical Nexplanon Nexplanon Bran ch Nexplanon Nexplanon Disease Active 2020-0 Uni vers insertion insertion 7-30 ity of 00:00: [place] 00 Medical Branch Nexplanon Nexplanon Disease Active 2020-0 Uni vers removal removal 7-30 ity of 00:00: [place] 00 Medical Branch Other Other Disease Active 2020-0 Univers general general 7-23 it[place] of counseling [place] and advice and advice 00 Me dical for for Branch contracept contracept richar richar management management Disease Active 2020-0 U nivers care and care and 4- ity of examinatio examinatio [place] of n of 00 Medical lactating lactating Jhonny ch mother mother Morbid Morbid Disease Active 2020-0 Univers obesity obesity 3-10 ity of with body with body 00:00: [facility] s mass index mass index 00 Me dical of 50 or of 50 or Branch higher higher 37 weeks 37 weeks Disease Active 2020-0 Unive rs gestation gestation 3-10 ity of of of 00:00: [place] 00 Medi daisy Branch Gestationa Gestationa Disease Active 2020-0 U nivers l l 3-10 ity of hypertensi hypertensi 00:[place], on, Medical antepartum antepartum Br anch Morbid Morbid Disease Active 2020-0 Univers obesity obesity 3-10 ity of with BMI with BMI 00:00: [place] of of 00 Medical 45.0-49.9, 45.0-49.9, Br anch adult adult URI (upper URI (upper Disease Active 2019-1 U nivers respirator respirator 2-30 it y of y y 00:00: [place] infection) infection) 00 Me dical Branch Generalize Generalize Disease Active 2019-1 U nivers d body d body 2-30 ity of aches aches 00:00: [place] 00 Medical Branch Influenza Influenza Disease Active 2019- Uni vers B B 2-30 ity of 00:00: [place] 00 Medical Branch Screening, Screening, Disease Active 2019-1 U nivers , , 0-07 it y of isoimmuniz isoimmuniz 00:[place] ation ation Medical Branch BMI BMI Disease Active 2019 Univers 50.0-59.9, 50.0-59.9, 0-07 it y of adult adult 00:00: 00 Medical Branch Supervisio Supervisio Disease Active 2019- U nivers n of n of 7-17 ity of high-risk high-risk 00:[place] [facility] Multiparit Multiparit Disease Active U nivers y y 7-17 ity of 00:00: Medical Branch History of History of Disease Active 2019 Overview : Univers 7-17 X2 ity of section section 00:00: pending [facility] Medical Branch Obesity in Obesity in Disease Active U nivers 7-17 ity of 00:00: [place] [facility] Tobacco Tobacco Disease Active Univers use during use during 7-17 [place] Tobacco Tobacco Disease Active Univers use use 7-17 ity of 00:00: [facility] Tobacco Tobacco Disease Active 2019- Univers use use 7-17 ity of 00:00: 00 Medical [place] Allergies, Adverse Reactions, Alerts Allergy Allergy Status Severity Reaction(s) Onset Inactive Treating Comm ents Source Name Type Date Date Clinician Penicill DA Active U VOMITING 2020-0 [facility] ins 8[facility]11 [place] 00:00: d 00 [facility] latex DA Active U SWELLING 2020-0 [facility] 8-11 [place] 00:00: d 00 [facility] Penicill DA Active U 2020-0 [facility] ins 8-11 Clear 00:00: Carbajal 00 [facility] latex DA Active U 2020-0 [facility] 8-11 Clear 00:00: Carbajal 00 [facility] Penicill Propensi Active Nausea 2019-0 Univer s in ty to and/or 7-17 ity of adverse Vomiting 00:00: [place] reaction Medical s Branch Penicill Propensi Active Nausea 0 Univer s in ty to and/or 7-17 ity of adverse Vomiting 00:00: [place] reaction 00 Medical s [place] PENICILL DRUG Active N/V 2019- Univers IN INGREDI 7-17 ity of 00:00: [place] [facility] Social History Social Habit Start Date Stop Date Quantity Comments Source ASSERTION 2019-01-13 University of 00:00:00 [facility] History of tobacco 2007-01-26 Cigarette Smoker University of use 00:00:00 [facility] History [facility]ly [facility] o f Alcohol Binge [facility] [place] Sex Assigned At [facility] y of [facility] Exposure to Not sure University of SARS-CoV-2 (event) [facility] History [facility] University o f Alcohol Std Drinks [facility] Tobacco use and 2020-08-09 2020-08-09 Never used [facility] y of exposure 00:00:00 00:00:00 [facility] Cigarettes smoked 2020-08-09 2020-08-09 Univers ity of current (pack per 00:00:00 00:00:00 [facility]) - Reported Branch Alcohol intake 2020-08-09 2020-08-09 Ex-drinker [facility] 00:00:00 00:00:00 (finding) [facility] Tobacco Comment 2020-02-02 2020-02-02 1 pack a day Univers ity of 00:00:00 00:00:00 [facility] History SDOH 2019-01-26 2019-01-26 1 University o f Alcohol Frequency 00:00:00 00:00:00 [facility] Smoking Status Start Date Stop Date Source Current every day smoker 2020-08-09 00:00:00 Uni versity of [facility] Medications Ordered Filled Start Stop Current Ordering Indication Dosage Frequency Signature Comments Components Source Medication Medication Date Date Medication? Clinician (SIG) Name Name levonorgest Yes [id number] 1{tbl} Take 1 Univers rel-ethinyl 1-28 tablet by ity of estradiol 00:00: mouth [place] (SRONYX) 00 daily. Medical 0.1-20 Branch mg-mcg per tablet levonorgest Yes [id number] 1{tbl} Take 1 Univers rel-ethinyl 1-28 tablet by ity of estradiol 00:00: mouth [place] (SRONYX) 00 daily. Medical 0.1-20 Branch mg-mcg per tablet levonorgest Yes [id number] 1{tbl} Take 1 Univers rel-ethinyl 1-28 tablet by ity of estradiol 00:00: mouth [place] (SRONYX) 00 daily. Medical 0.1-20 Branch mg-mcg per tablet levonorgest 0 Yes [id number] 1{tbl} Take 1 Univers rel-ethinyl 1-28 tablet by ity of estradiol 00:00: mouth [place] (SRONYX) 00 daily. Medical 0.1-20 Branch mg-mcg per tablet azithromyci 2020-0 Yes [id number] 250mg Take 1 Univers n 9-25 tablet by ity of (ZITHROMAX 00:00: mouth [place] Z-THA) 250 00 daily. Medical mg tablet Take 500 Branch mg day 1, then 250 mg days 2 to 5. azithromyci 2020-0 Yes [id number] 250mg Take 1 Univers n 9-25 tablet by ity of (ZITHROMAX 00:00: mouth [place] Z-THA) 250 00 daily. Medical mg tablet Take 500 Branch mg day 1, then 250 mg days 2 to 5. azithromyci 2020-0 Yes [id number] 250mg Take 1 Univers n 9-25 tablet by ity of (ZITHROMAX 00:00: mouth [place] Z-THA) 250 00 daily. Medical mg tablet Take 500 Branch mg day 1, then 250 mg days 2 to 5. azithromyci 2020-0 Yes [id number] 250mg Take 1 Univers n 9-25 tablet by ity of (ZITHROMAX 00:00: mouth [place] Z-THA) 250 00 daily. Medical mg tablet Take 500 Branch mg day 1, then 250 mg days 2 to 5. azithromyci 2020-0 Yes [id number] 250mg Take 1 Univers n 9-25 tablet by ity of (ZITHROMAX 00:00: mouth [place] Z-THA) 250 00 daily. Medical mg tablet Take 500 Branch mg day 1, then 250 mg days 2 to 5. azithromyci 2020-0 Yes [id number] 250mg Take 1 Univers n 9-25 tablet by ity of (ZITHROMAX 00:00: mouth [place] Z-THA) 250 00 daily. Medical mg tablet Take 500 Branch mg day 1, then 250 mg days 2 to 5. azithromyci 2020-0 Yes [id number] 250mg Take 1 Univers n 9-25 tablet by ity of (ZITHROMAX 00:00: mouth [place] Z-THA) 250 00 daily. Medical mg tablet Take 500 Branch mg day 1, then 250 mg days 2 to 5. estradiol 2 2019- No [id number] 2mg Take 1 Univers mg tablet 02-22 tablet by ity of 00:00: 04:59 mouth [place] 00 :00 daily for Medical 21 days. Branch estradiol 2 2019- No [id number] 2mg Take 1 Univers mg tablet 02-22 tablet by ity of 00:00: 04:59 mouth [place] 00 :00 daily for Medical 21 days. Branch etonogestre 2019- No 68mg Unive rs l 02-08 ity of (NEXPLANON) 15:30: 14:28 [place] implant 00 :00 Medical mg Branch etonogestre 2019- No 68mg 68 mg, Uni vers l 02-08 Subdermal, ity of (NEXPLANON) 15:30: 14:28 ONCE NOW, [place] implant 68 00 :00 1 dose, Medica l mg Den[place] 02/09/20 at 1030, Routine
Use approved by: [employer] etonogestre 2019- No 68mg Unive rs l 02-08 ity of (NEXPLANON) 15:30: 14:28 [place] implant 68 00 :00 Medical mg Branch etonogestre 2019- No 68mg 68 mg, Uni vers l 02-08 Subdermal, ity of (NEXPLANON) 15:30: 14:28 ONCE NOW, [place] implant 68 00 :00 1 dose, Medica l mg Den[place] 02/09/20 at 1030, Routine
Use approved by: [employer] etonogestre 2019- No 68mg Unive rs l 02-08 ity of (NEXPLANON) 15:30: 14:28 [place] implant 68 00 :00 Medical mg Branch etonogestre 2019- No 68mg 68 mg, Uni vers l 02-08 Subdermal, ity of (NEXPLANON) 15:30: 14:28 ONCE NOW, [place] implant 68 00 :00 1 dose, Medica l mg Den[place] 02/09/20 at 1030, Routine
Use approved by: [employer] medroxyPROG 2019- Yes [id number] 150mg Univers ESTERone 5-05 ity of (DEPO-PROVE 15:30: [place] RA) 00 Medical injection Branch 150 mg medroxyPROG 2020-0 Yes [id number] 150mg 150 mg, Univers ESTERone 5-05 Intramuscu ity o f (DEPO-PROVE 15:30: lar, [place] RA) 00 [id number], Medical injection First dose Bran ch 150 mg on Thu11/15/19 at 1030, Until Discontinu ed, Routine medroxyPROG 2020-0 Yes [id number] 150mg Univers ESTERone 5-05 ity of (DEPO-PROVE 15:30: [place] RA) 00 Medical injection Branch 150 mg medroxyPROG 2020-0 Yes [id number] 150mg Univers ESTERone 5-05 ity of (DEPO-PROVE 15:30: [place] RA) 00 Medical injection Branch 150 mg medroxyPROG 2020-0 Yes [id number] 150mg Univers ESTERone 5-05 ity of (DEPO-PROVE 15:30: [place] RA) 00 Medical injection Branch 150 mg medroxyPROG 2020-0 Yes [id number] 150mg Univers ESTERone 5-05 ity of (DEPO-PROVE 15:30: [place] RA) 00 Medical injection Branch 150 mg medroxyPROG 2020-0 Yes [id number] 150mg Univers ESTERone 5-05 ity of (DEPO-PROVE 15:30: [place] RA) 00 Medical injection Branch 150 mg medroxyPROG 2020-0 Yes [id number] 150mg Univers ESTERone 5-05 ity of (DEPO-PROVE 15:30: [place] RA) 00 Medical injection Branch 150 mg medroxyPROG 2020-0 Yes [id number] 150mg Univers ESTERone 5-05 ity of (DEPO-PROVE 15:30: [place] RA) 00 Medical injection Branch 150 mg medroxyPROG 2020-0 Yes [id number] 150mg Univers ESTERone 5-05 ity of (DEPO-PROVE 15:30: [place] RA) 00 Medical injection Branch 150 mg medroxyPROG 2020-0 Yes [id number] 150mg Univers ESTERone 5-05 ity of (DEPO-PROVE 15:30: [place] RA) 00 Medical injection Branch 150 mg medroxyPROG 2020-0 Yes [id number] 150mg Univers ESTERone 5-05 ity of (DEPO-PROVE 15:30: [place] RA) 00 Medical injection Branch 150 mg medroxyPROG 2020-0 Yes [id number] 150mg Univers ESTERone 5-05 ity of (DEPO-PROVE 15:30: [place] RA) 00 Medical injection Branch 150 mg medroxyPROG 2020-0 Yes [id number] 150mg Univers ESTERone 5-05 ity of (DEPO-PROVE 15:30: [place] RA) 00 Medical injection Branch 150 mg medroxyPROG 2020-0 Yes [id number] 150mg Univers ESTERone 5-05 ity of (DEPO-PROVE 15:30: [place] RA) 00 Medical injection Branch 150 mg medroxyPROG 2020-0 Yes [id number] 150mg Univers ESTERone 5-05 ity of (DEPO-PROVE 15:30: [place] RA) 00 Medical injection Branch 150 mg medroxyPROG 2020-0 Yes [id number] 150mg Univers ESTERone 5-05 ity of (DEPO-PROVE 15:30: [place] RA) 00 Medical injection Branch 150 mg medroxyPROG 2020-0 Yes [id number] 150mg Univers ESTERone 5-05 ity of (DEPO-PROVE 15:30: [place] RA) 00 Medical injection Branch 150 mg benzocaine- 2019-0 Yes 1{lozen 1 Lozenge, Univers menthol 3-12 ge} Oral, ity of (CEPACOL 17:42: Q4HPRN, [place] SORE THROAT 16 Starting Medi daisy (DEANNA-MEN)) [place] Branch lozenge 1 09/22/19 at Lozenge 1242, Until Discontinu ed, Routine, Sore throat 0 Yes [id number] 1{tbl} Take 1 Univers vitamin 3-12 tablet by ity of w/FA tablet 00:00: mouth [place] 00 daily. May Medical substitute Branch for what is in stock and covered by patient plan docusate 2019-0 Yes [id number] 240mg Take 1 U nivers calcium 240 3-12 capsule by it y of mg capsule 00:00: mouth [place] 00 daily as Medical needed for Branch Constipati on. May substitute for what is in stock and covered by patient plan ferrous 2019-0 Yes [id number] 325mg Take 1 Un swapnil sulfate 325 3-12 tablet by ity of mg (65 mg 00:00: mouth 2 [place] iron) 00 (two) Medical tablet times Branch daily. May substitute for what is in stock and covered by patient plan ibuprofen Yes [id number] 600mg Take 1 Univers 600 mg 3-12 tablet by ity of tablet 00:00: mouth [place] 00 every 6 Medical (six) Branch hours as needed (Pain). Take with food or milk. Yes [id number] 1{tbl} Take 1 Univers vitamin 3-12 tablet by ity of w/FA tablet 00:00: mouth [place] 00 daily. May Medical substitute Branch for what is in stock and covered by patient plan docusate Yes [id number] 240mg Take 1 U nivers calcium 240 3-12 capsule by it y of mg capsule 00:00: mouth [place] 00 daily as Medical needed for Branch Constipati on. May substitute for what is in stock and covered by patient plan ferrous Yes [id number] 325mg Take 1 Un swapnil sulfate 325 3-12 tablet by ity of mg (65 mg 00:00: mouth 2 [place] iron) 00 (two) Medical tablet times Branch daily. May substitute for what is in stock and covered by patient plan ibuprofen Yes [id number] 600mg Take 1 Univers 600 mg 3-12 tablet by ity of tablet 00:00: mouth [place] 00 every 6 Medical (six) Branch hours as needed (Pain). Take with food or milk. Yes [id number] 1{tbl} Take 1 Univers vitamin 3-12 tablet by ity of w/FA tablet 00:00: mouth [place] 00 daily. May Medical substitute Branch for what is in stock and covered by patient plan docusate Yes [id number] 240mg Take 1 U nivers calcium 240 3-12 capsule by it y of mg capsule 00:00: mouth once [place] 00 daily as Medical needed for Branch Constipati on. May substitute for what is in stock and covered by patient plan ferrous 2020 Yes [id number] 325mg Take 1 Un swapnil sulfate 325 3-12 tablet by ity of mg (65 mg 00:00: mouth 2 [place] iron) 00 (two) Medical tablet times Branch daily. May substitute for what is in stock and covered by patient plan ibuprofen Yes [id number] 600mg Take 1 Univers 600 mg 3-12 tablet by ity of tablet 00:00: mouth [place] 00 every 6 Medical (six) Branch hours as needed (Pain). Take with food or milk. Yes [id number] 1{tbl} Take 1 Univers vitamin 3-12 tablet by ity of w/FA tablet 00:00: mouth [place] 00 daily. May Medical substitute Branch for what is in stock and covered by patient plan docusate Yes [id number] 240mg Take 1 U nivers calcium 240 3-12 capsule by it y of mg capsule 00:00: mouth once [place] 00 daily as Medical needed for Branch Constipati on. May substitute for what is in stock and covered by patient plan ferrous Yes [id number] 325mg Take 1 Un swapnil sulfate 325 3-12 tablet by ity of mg (65 mg 00:00: mouth 2 [place] iron) 00 (two) Medical tablet times Branch daily. May substitute for what is in stock and covered by patient plan ibuprofen Yes [id number] 600mg Take 1 Univers 600 mg 3-12 tablet by ity of tablet 00:00: mouth [place] 00 every 6 Medical (six) Branch hours as needed (Pain). Take with food or milk. Yes [id number] 1{tbl} Take 1 Univers vitamin 3-12 tablet by ity of w/FA tablet 00:00: mouth [place] 00 daily. May Medical substitute Branch for what is in stock and covered by patient plan docusate Yes [id number] 240mg Take 1 U nivers calcium 240 3-12 capsule by it y of mg capsule 00:00: mouth once [place] 00 daily as Medical needed for Branch Constipati on. May substitute for what is in stock and covered by patient plan ferrous Yes [id number] 325mg Take 1 Un swapnil sulfate 325 3-12 tablet by ity of mg (65 mg 00:00: mouth 2 [place] iron) 00 (two) Medical tablet times Branch daily. May substitute for what is in stock and covered by patient plan ibuprofen Yes [id number] 600mg Take 1 Univers 600 mg 3-12 tablet by ity of tablet 00:00: mouth [place] 00 every 6 Medical (six) Branch hours as needed (Pain). Take with food or milk. Yes [id number] 1{tbl} Take 1 Univers vitamin 3-12 tablet by ity of w/FA tablet 00:00: mouth [place] 00 daily. May Medical substitute Branch for what is in stock and covered by patient plan docusate 2020 Yes [id number] 240mg Take 1 U nivers calcium 240 3-12 capsule by it y of mg capsule 00:00: mouth once [place] 00 daily as Medical needed for Branch Constipati on. May substitute for what is in stock and covered by patient plan ferrous 2020-0 Yes [id number] 325mg Take 1 Un swapnil sulfate 325 3-12 tablet by ity of mg (65 mg 00:00: mouth 2 [place] iron) 00 (two) Medical tablet times Branch daily. May substitute for what is in stock and covered by patient plan ibuprofen Yes [id number] 600mg Take 1 Univers 600 mg 3-12 tablet by ity of tablet 00:00: mouth [place] 00 every 6 Medical (six) Branch hours as needed (Pain). Take with food or milk. Yes [id number] 1{tbl} Take 1 Univers vitamin 3-12 tablet by ity of w/FA tablet 00:00: mouth [place] 00 daily. May Medical substitute Branch for what is in stock and covered by patient plan docusate Yes [id number] 240mg Take 1 U nivers calcium 240 3-12 capsule by it y of mg capsule 00:00: mouth once [place] 00 daily as Medical needed for Branch Constipati on. May substitute for what is in stock and covered by patient plan ferrous Yes [id number] 325mg Take 1 Un swapnil sulfate 325 3-12 tablet by ity of mg (65 mg 00:00: mouth 2 [place] iron) 00 (two) Medical tablet times Branch daily. May substitute for what is in stock and covered by patient plan ibuprofen 0 Yes [id number] 600mg Take 1 Univers 600 mg 3-12 tablet by ity of tablet 00:00: mouth [place] 00 every 6 Medical (six) Branch hours as needed (Pain). Take with food or milk. Yes [id number] 1{tbl} Take 1 Univers vitamin 3-12 tablet by ity of w/FA tablet 00:00: mouth [place] 00 daily. May Medical substitute Branch for what is in stock and covered by patient plan docusate Yes [id number] 240mg Take 1 U nivers calcium 240 3-12 capsule by it y of mg capsule 00:00: mouth once [place] 00 daily as Medical needed for Branch Constipati on. May substitute for what is in stock and covered by patient plan ferrous 2020-0 Yes [id number] 325mg Take 1 Un swapnil sulfate 325 3-12 tablet by ity of mg (65 mg 00:00: mouth 2 [place] iron) 00 (two) Medical tablet times Branch daily. May substitute for what is in stock and covered by patient plan ibuprofen 2019-0 Yes [id number] 600mg Take 1 Univers 600 mg 3-12 tablet by ity of tablet 00:00: mouth [place] 00 every 6 Medical (six) Branch hours as needed (Pain). Take with food or milk. Yes [id number] 1{tbl} Take 1 Univers vitamin 3-12 tablet by ity of w/FA tablet 00:00: mouth [place] 00 daily. May Medical substitute Branch for what is in stock and covered by patient plan docusate Yes [id number] 240mg Take 1 U nivers calcium 240 3-12 capsule by it y of mg capsule 00:00: mouth once [place] 00 daily as Medical needed for Branch Constipati on. May substitute for what is in stock and covered by patient plan ferrous 0 Yes [id number] 325mg Take 1 Un swapnil sulfate 325 3-12 tablet by ity of mg (65 mg 00:00: mouth 2 [place] iron) 00 (two) Medical tablet times Branch daily. May substitute for what is in stock and covered by patient plan ibuprofen 0 Yes [id number] 600mg Take 1 Univers 600 mg 3-12 tablet by ity of tablet 00:00: mouth [place] 00 every 6 Medical (six) Branch hours as needed (Pain). Take with food or milk. Yes [id number] 1{tbl} Take 1 Univers vitamin 3-12 tablet by ity of w/FA tablet 00:00: mouth [place] 00 daily. May Medical substitute Branch for what is in stock and covered by patient plan docusate Yes [id number] 240mg Take 1 U nivers calcium 240 3-12 capsule by it y of mg capsule 00:00: mouth once [place] 00 daily as Medical needed for Branch Constipati on. May substitute for what is in stock and covered by patient plan ferrous 20200 Yes [id number] 325mg Take 1 Un swapnil sulfate 325 3-12 tablet by ity of mg (65 mg 00:00: mouth 2 [place] iron) 00 (two) Medical tablet times Branch daily. May substitute for what is in stock and covered by patient plan ibuprofen 0 Yes [id number] 600mg Take 1 Univers 600 mg 3-12 tablet by ity of tablet 00:00: mouth [place] 00 every 6 Medical (six) Branch hours as needed (Pain). Take with food or milk. Yes [id number] 1{tbl} Take 1 Univers vitamin 3-12 tablet by ity of w/FA tablet 00:00: mouth [place] 00 daily. May Medical substitute Branch for what is in stock and covered by patient plan docusate Yes [id number] 240mg Take 1 U nivers calcium 240 3-12 capsule by it y of mg capsule 00:00: mouth once [place] 00 daily as Medical needed for Branch Constipati on. May substitute for what is in stock and covered by patient plan ferrous 0 Yes [id number] 325mg Take 1 Un swapnil sulfate 325 3-12 tablet by ity of mg (65 mg 00:00: mouth 2 [place] iron) 00 (two) Medical tablet times Branch daily. May substitute for what is in stock and covered by patient plan ibuprofen 0 Yes [id number] 600mg Take 1 Univers 600 mg 3-12 tablet by ity of tablet 00:00: mouth [place] 00 every 6 Medical (six) Branch hours as needed (Pain). Take with food or milk. Yes [id number] 1{tbl} Take 1 Univers vitamin 3-12 tablet by ity of w/FA tablet 00:00: mouth [place] 00 daily. May Medical substitute Branch for what is in stock and covered by patient plan docusate 0 Yes [id number] 240mg Take 1 U nivers calcium 240 3-12 capsule by it y of mg capsule 00:00: mouth once [place] 00 daily as Medical needed for Branch Constipati on. May substitute for what is in stock and covered by patient plan ferrous 2020-0 Yes [id number] 325mg Take 1 Un swapnil sulfate 325 3-12 tablet by ity of mg (65 mg 00:00: mouth 2 [place] iron) 00 (two) Medical tablet times Branch daily. May substitute for what is in stock and covered by patient plan ibuprofen Yes [id number] 600mg Take 1 Univers 600 mg 3-12 tablet by ity of tablet 00:00: mouth [place] 00 every 6 Medical (six) Branch hours as needed (Pain). Take with food or milk. Yes [id number] 1{tbl} Take 1 Univers vitamin 3-12 tablet by ity of w/FA tablet 00:00: mouth [place] 00 daily. May Medical substitute Branch for what is in stock and covered by patient plan docusate Yes [id number] 240mg Take 1 U nivers calcium 240 3-12 capsule by it y of mg capsule 00:00: mouth once [place] 00 daily as Medical needed for Branch Constipati on. May substitute for what is in stock and covered by patient plan ferrous Yes [id number] 325mg Take 1 Un swapnil sulfate 325 3-12 tablet by ity of mg (65 mg 00:00: mouth 2 [place] iron) 00 (two) Medical tablet times Branch daily. May substitute for what is in stock and covered by patient plan ibuprofen Yes [id number] 600mg Take 1 Univers 600 mg 3-12 tablet by ity of tablet 00:00: mouth [place] 00 every 6 Medical (six) Branch hours as needed (Pain). Take with food or milk. Yes [id number] 1{tbl} Take 1 Univers vitamin 3-12 tablet by ity of w/FA tablet 00:00: mouth [place] 00 daily. May Medical substitute Branch for what is in stock and covered by patient plan docusate Yes [id number] 240mg Take 1 U nivers calcium 240 3-12 capsule by it y of mg capsule 00:00: mouth [place] 00 daily as Medical needed for Branch Constipati on. May substitute for what is in stock and covered by patient plan ferrous Yes [id number] 325mg Take 1 Un swapnil sulfate 325 3-12 tablet by ity of mg (65 mg 00:00: mouth 2 [place] iron) 00 (two) Medical tablet times Branch daily. May substitute for what is in stock and covered by patient plan ibuprofen Yes [id number] 600mg Take 1 [facility] 600 mg 3-12 tablet by ity of tablet 00:00: mouth [place] 00 every 6 Medical (six) Branch hours as needed (Pain). Take with food or milk. Yes [id number] 1{tbl} Take 1 [facility] vitamin 3-12 tablet by ity of w/FA tablet 00:00: mouth [place] 00 daily. May Medical substitute Branch for what is in stock and covered by patient plan docusate Yes [id number] 240mg Take 1 U nivers calcium 240 3-12 capsule by it y of mg capsule 00:00: mouth once [place] 00 daily as Medical needed for Branch Constipati on. May substitute for what is in stock and covered by patient plan ferrous Yes [id number] 325mg Take 1 Un swapnil sulfate 325 3-12 tablet by ity of mg (65 mg 00:00: mouth 2 [place] iron) 00 (two) Medical tablet times Branch daily. May substitute for what is in stock and covered by patient plan ibuprofen Yes [id number] 600mg Take 1 [facility] 600 mg 3-12 tablet by ity of tablet 00:00: mouth [place] 00 every 6 Medical (six) Branch hours as needed (Pain). Take with food or milk. Yes [id number] 1{tbl} Take 1 [facility] vitamin 3-12 tablet by ity of w/FA tablet 00:00: mouth [place] 00 daily. May Medical substitute Branch for what is in stock and covered by patient plan docusate Yes [id number] 240mg Take 1 U nivers calcium 240 3-12 capsule by it y of mg capsule 00:00: mouth once [place] 00 daily as Medical needed for Branch Constipati on. May substitute for what is in stock and covered by patient plan ferrous Yes [id number] 325mg Take 1 Un swapnil sulfate 325 3-12 tablet by ity of mg (65 mg 00:00: mouth 2 [place] iron) 00 (two) Medical tablet times Branch daily. May substitute for what is in stock and covered by patient plan ibuprofen Yes [id number] 600mg Take 1 [facility] 600 mg 3-12 tablet by ity of tablet 00:00: mouth [place] 00 every 6 Medical (six) Branch hours as needed (Pain). Take with food or milk. Yes [id number] 1{tbl} Take 1 [facility] vitamin 3-12 tablet by ity of w/FA tablet 00:00: mouth [place] 00 daily. May Medical substitute Branch for what is in stock and covered by patient plan docusate Yes [id number] 240mg Take 1 U nivers calcium 240 3-12 capsule by it y of mg capsule 00:00: mouth once [place] 00 daily as Medical needed for Branch Constipati on. May substitute for what is in stock and covered by patient plan ferrous 0 Yes [id number] 325mg Take 1 Un swapnil sulfate 325 3-12 tablet by ity of mg (65 mg 00:00: mouth 2 [place] iron) 00 (two) Medical tablet times Branch daily. May substitute for what is in stock and covered by patient plan ibuprofen Yes [id number] 600mg Take 1 [facility] 600 mg 3-12 tablet by ity of tablet 00:00: mouth [place] 00 every 6 Medical (six) Branch hours as needed (Pain). Take with food or milk. Yes [id number] 1{tbl} Take 1 [facility] vitamin 3-12 tablet by ity of w/FA tablet 00:00: mouth [place] 00 daily. May Medical substitute Branch for what is in stock and covered by patient plan docusate Yes [id number] 240mg Take 1 U nivers calcium 240 3-12 capsule by it y of mg capsule 00:00: mouth once [place] 00 daily as Medical needed for Branch Constipati on. May substitute for what is in stock and covered by patient plan ferrous Yes [id number] 325mg Take 1 Un swapnil sulfate 325 3-12 tablet by ity of mg (65 mg 00:00: mouth 2 [place] iron) 00 (two) Medical tablet times Branch daily. May substitute for what is in stock and covered by patient plan ibuprofen Yes [id number] 600mg Take 1 [facility] 600 mg 3-12 tablet by ity of tablet 00:00: mouth [place] 00 every 6 Medical (six) Branch hours as needed (Pain). Take with food or milk. Yes [id number] 1{tbl} Take 1 [facility] vitamin 3-12 tablet by ity of w/FA tablet 00:00: mouth [place] 00 daily. May Medical substitute Branch for what is in stock and covered by patient plan docusate Yes [id number] 240mg Take 1 U nivers calcium 240 3-12 capsule by it y of mg capsule 00:00: mouth once [place] 00 daily as Medical needed for Branch Constipati on. May substitute for what is in stock and covered by patient plan ferrous 2019-0 Yes [id number] 325mg Take 1 Un swapnil sulfate 325 3-12 tablet by ity of mg (65 mg 00:00: mouth 2 [place] iron) 00 (two) Medical tablet times Branch daily. May substitute for what is in stock and covered by patient plan ibuprofen 0 Yes [id number] 600mg Take 1 [facility] 600 mg 3-12 tablet by ity of tablet 00:00: mouth [place] 00 every 6 Medical (six) Branch hours as needed (Pain). Take with food or milk. Yes [id number] 1{tbl} Take 1 [facility] vitamin 3-12 tablet by ity of w/FA tablet 00:00: mouth [place] 00 daily. May Medical substitute Branch for what is in stock and covered by patient plan docusate Yes [id number] 240mg Take 1 U nivers calcium 240 3-12 capsule by it y of mg capsule 00:00: mouth once [place] 00 daily as Medical needed for Branch Constipati on. May substitute for what is in stock and covered by patient plan ferrous Yes [id number] 325mg Take 1 Un swapnil sulfate 325 3-12 tablet by ity of mg (65 mg 00:00: mouth 2 [place] iron) 00 (two) Medical tablet times Branch daily. May substitute for what is in stock and covered by patient plan ibuprofen 0 Yes [id number] 600mg Take 1 [facility] 600 mg 3-12 tablet by ity of tablet 00:00: mouth [place] 00 every 6 Medical (six) Branch hours as needed (Pain). Take with food or milk. Yes [id number] 1{tbl} Take 1 [facility] vitamin 3-12 tablet by ity of w/FA tablet 00:00: mouth [place] 00 daily. May Medical substitute Branch for what is in stock and covered by patient plan docusate Yes [id number] 240mg Take 1 U nivers calcium 240 3-12 capsule by it y of mg capsule 00:00: mouth once [place] 00 daily as Medical needed for Branch Constipati on. May substitute for what is in stock and covered by patient plan ferrous Yes [id number] 325mg Take 1 Un swapnil sulfate 325 3-12 tablet by ity of mg (65 mg 00:00: mouth 2 [place] iron) 00 (two) Medical tablet times Branch daily. May substitute for what is in stock and covered by patient plan ibuprofen Yes [id number] 600mg Take 1 [facility] 600 mg 3-12 tablet by ity of tablet 00:00: mouth [place] 00 every 6 Medical (six) Branch hours as needed (Pain). Take with food or milk. Yes [id number] 1{tbl} Take 1 [facility] vitamin 3-12 tablet by ity of w/FA tablet 00:00: mouth [place] 00 daily. May Medical substitute Branch for what is in stock and covered by patient plan docusate Yes [id number] 240mg Take 1 U nivers calcium 240 3-12 capsule by it y of mg capsule 00:00: mouth once [place] 00 daily as Medical needed for Branch Constipati on. May substitute for what is in stock and covered by patient plan ferrous Yes [id number] 325mg Take 1 Un swapnil sulfate 325 3-12 tablet by ity of mg (65 mg 00:00: mouth 2 [place] iron) 00 (two) Medical tablet times Branch daily. May substitute for what is in stock and covered by patient plan ibuprofen Yes [id number] 600mg Take 1 [facility] 600 mg 3-12 tablet by ity of tablet 00:00: mouth [place] 00 every 6 Medical (six) Branch hours as needed (Pain). Take with food or milk. Yes [id number] 1{tbl} Take 1 [facility] vitamin 3-12 tablet by ity of w/FA tablet 00:00: mouth [place] 00 daily. May Medical substitute Branch for what is in stock and covered by patient plan docusate Yes [id number] 240mg Take 1 U nivers calcium 240 3-12 capsule by it y of mg capsule 00:00: mouth once [place] 00 daily as Medical needed for Branch Constipati on. May substitute for what is in stock and covered by patient plan ferrous Yes [id number] 325mg Take 1 Un swapnil sulfate 325 3-12 tablet by ity of mg (65 mg 00:00: mouth 2 [place] iron) 00 (two) Medical tablet times Branch daily. May substitute for what is in stock and covered by patient plan ibuprofen 2019-0 Yes [id number] 600mg Take 1 [facility] 600 mg 3-12 tablet by ity of tablet 00:00: mouth [place] 00 every 6 Medical (six) Branch hours as needed (Pain). Take with food or milk. HYDROcodone 2020- No [id number] 1{tbl} Take 1 Univers -acetaminop 3-12 03-20 tablet by it y of hen 5-325 00:00: 04:59 mouth [place] mg tablet 00 :00 every 6 Medical (six) Branch hours as needed (Pain scale > 4) for up to 7 days. Do not exceed 3 grams of acetaminop hen in 24 hours. HYDROcodone 2020- No [id number] 1{tbl} Take 1 Univers -acetaminop 3-12 03-20 tablet by it y of hen 5-325 00:00: 04:59 mouth [place] mg tablet 00 :00 every 6 Medical (six) Branch hours as needed (Pain scale > 4) for up to 7 days. Do not exceed 3 grams of acetaminop hen in 24 hours. rho(D) 0 Yes 300ug 300 mcg, Univer s immune 3-11 Intramuscu ity of globulin 02:59: lar, ONCE, [place] (RHOGAM) 46 For 1 Medical syringe 300 dose, Branch mcg Conditiona l, Routine human 0 Yes .5mL 0.5 mL, Univers papillomav 3-11 Intramuscu ity of vac,9-aide(P 02:59: lar, [place] F) 41 ONCE-PRIOR Medical (GARDASIL-9 TO Branch ) syringe DISCHARGE, 0.5 mL 1 dose, Starting 09/20/19 at 2159, Until Discontinu ed, Routine, Give vaccine prior to discharge HYDROcodone 2019-0 Yes 2{tbl} 2 tablet, Univers -acetaminop 3-11 Oral, ity of hen (NORCO 02:59: Q6HPRN, [place] 5) 5-325 mg 41 Starting Medi daisy tablet 2 Tue Branch tablet 09/20/19 at 2159, Until Discontinu ed, Routine, Pain (scale 7-10), [...] 2158, Until Discontinu ed, Routine, Itching diphenhydrA 2020-0 Yes 25mg 25 mg, Univ ers MINE 3-11 Oral, ity of (BENADRYL) 02:59: Q6HPRN, [place] tablet 25 40 Starting Medica l mg [facility] 09/20/19 at 2158, Until Discontinu ed, Routine, Sleep, Itching bisacodyL Yes 10mg 10 mg, Univer s (DULCOLAX) 09-20 Rectal, ity of suppository 02:59: QDAILYPRN, [place] 10 mg 40 Starting Medical [facility] 09/20/19 at 2158, Until Discontinu ed, Routine, Constipati on docusate Yes 240mg 240 mg, Unive rs calcium 09-20 Oral, ity of (SURFAK) 02:59: QDAILYPRN, [place] capsule 240 40 Starting Medi daisy mg [facility] 09/20/19 at 2158, Until Discontinu ed, Routine, Constipati on naloxone 2020- No .4mg 0.4 mg, Unive rs (NARCAN) 09-20 Slow IV ity of injection 01:12: 01:11 Push, PRN [place] 0.4 mg 35 :35 - SEE Medical INSTRUCTIO Branch NS, Starting e 09/20/19 at 2011, Until Den[place] 09/22/19 at 2010, Routine, Analgesia Recovery, PACU ketorolac 2019- No 30mg 30 mg, Unive rs (TORADOL) 09-20 Slow IV ity of injection 01:12: 01:45 Push, PRN, [place] 30 mg 35 :00 1 dose, Medical Starting Branch [facility] 09/20/19 at 2011, Until Thu09/20/19 at 2044, Routine, Pain (scale 7-10), PACU
Fa culty member approving Restricted medication : JOSÉ MIGUEL LEE Investigati 2020- No 1g 1 g, IV Un swapnil onal Drug- 09-19 Infusion, ity of tranexamic 21:45: 02:59 ONCE, 1 [place] acid 1 gram 00 :47 dose, Tu Med ical or placebo 09/20/19 at [facility] in [place] 50 mL 1645
Pr incipal investigat or: ERLINDA VALENZUELA metoclopram 2020-0 2020- No 10mg 10 mg, IV Univers emile HCl 09-19 Piggyback, ity o f (REGLAN) 10 17:30: 17:54 ONCE, 1 [place] mg in NaCl 00 :00 dose, Tue Medi daisy 0.9% (NS) 09/20/19 at [facility] piggyback 1230, 50 mL famotidine 2019- [...] Medical (NS) 250 mL mg/kg ?94 [facility] kg Adjusted weight), IV Infusion, O.R. HOLDING ONCE, 1 dose, Starting 09/20/19 at 1126, Until Discontinu ed, 250 mL
Reas on for Anti-Infec tive: Surgical Prophylaxi s
Surgi daisy Prophylaxi s: [employer]
Duration of therapy: within 24 hours of surgery lactated 2019- No 1000mL at 125 Univ ers ringers [...] Until Den[place] 09/22/19 at 2359, Routine, Surgery/Pr ocedujosé miguel renFENesin 2018-07 Yes [id number] 100mg Take 5 mL Univers 100 mg/5 mL 2-31 by mouth ity of solution 00:00: every 4 [place] 00 (four) Medical hours. Ha guaiFENesin 2018-07 Yes [id number] 100mg Take 5 mL Univers 100 mg/5 mL 2-31 by mouth ity of solution 00:00: every 4 [place] 00 (four) Medical hours. Ha guaiFENesin 2018-07 Yes [id number] 100mg Take 5 mL Univers 100 mg/5 mL 2-31 by mouth ity of solution 00:00: every 4 [place] 00 (four) Medical hours. Ha guaiFENesin 2018-07 Yes [id number] 100mg Take 5 mL Univers 100 mg/5 mL 2-31 by mouth ity of solution 00:00: every 4 [place] 00 (four) Medical hours. Ha saenzaiFENesin 2018-07 Yes [id number] 100mg Take 5 mL Univers 100 mg/5 mL 2-31 by mouth ity of solution 00:00: every 4 [place] 00 (four) Medical hours. Ha guaiFENesin 2018-07 Yes [id number] 100mg Take 5 mL Univers 100 mg/5 mL 2-31 by mouth ity of solution 00:00: every 4 [place] 00 (four) Medical hours. Ha guaiFENesin 2018-07 Yes [id number] 100mg Take 5 mL Univers 100 mg/5 mL 2-31 by mouth ity of solution 00:00: every 4 [place] 00 (four) Medical hours. Ha guaiFENesin 2018-07 Yes [id number] 100mg Take 5 mL Univers 100 mg/5 mL 2-31 by mouth ity of solution 00:00: every 4 [place] 00 (four) Medical hours. Ha guaiFENesin 2018-07 Yes [id number] 100mg Take 5 mL Univers 100 mg/5 mL 2-31 by mouth ity of solution 00:00: every 4 [place] 00 (four) Medical hours. Ha guaiFENesin 2018-07 Yes [id number] 100mg Take 5 mL Univers 100 mg/5 mL 2-31 by mouth ity of solution 00:00: every 4 [place] 00 (four) Medical hours. Branch aiFENesin 2018-07 Yes [id number] 100mg Take 5 mL Univers 100 mg/5 mL 2-31 by mouth ity of solution 00:00: every 4 [place] 00 (four) Medical hours. Branch aiFENesin 2018-07 Yes [id number] 100mg Take 5 mL Univers 100 mg/5 mL 2-31 by mouth ity of solution 00:00: every 4 [place] 00 (four) Medical hours. Branch aiFENesin 2018-07 Yes [id number] 100mg Take 5 mL Univers 100 mg/5 mL 2-31 by mouth ity of solution 00:00: every 4 [place] 00 (four) [facility] [id number] 100mg Take 5 mL Univers 100 mg/5 mL 2-31 by mouth ity of solution 00:00: every 4 [place] 00 (four) Medical hours. [facility]- No [id number] 100mg Take 5 mL Univers 100 mg/5 mL 2-31 03-12 by mouth ity of solution 00:00: 00:00 every 4 [place] 00 :00 (four) Medical hours. [facility] Take by Un swapnil (ROBITUSSIN 7-17 mouth. ity of CHEST 15:31: [place] CONGESTION 10 Medical ORAL) [facility] Yes Take by Un swapnil (ROBITUSSIN 7-17 mouth. ity of CHEST 15:31: [place] CONGESTION 10 Medical ORAL) [facility] Take by Un swapnil (ROBITUSSIN 7-17 mouth. ity of CHEST 15:31: [place] CONGESTION 10 Medical ORAL) [facility] Yes Take by Un swapnil (ROBITUSSIN 7-17 mouth. ity of CHEST 15:31: [place] CONGESTION 10 Medical ORAL) [facility] Take by Un swapnil (ROBITUSSIN 7-17 mouth. ity of CHEST 15:31: [place] CONGESTION 10 Medical ORAL) [facility] Take by Un swapnil (ROBITUSSIN 7-17 mouth. ity of CHEST 15:31: [place] CONGESTION 10 Medical ORAL) [facility] Take by Un swapnil (ROBITUSSIN 7-17 mouth. ity of CHEST 15:31: [place] CONGESTION 10 Medical ORAL) Branch [facility] 0 Yes Take by Un swapnil (ROBITUSSIN 7-17 mouth. ity of CHEST 15:31: [place] CONGESTION 10 Medical ORAL) Branch [facility] 2018-0 Yes Take by Un swapnil (ROBITUSSIN 7-17 mouth. ity of CHEST 15:31: [place] CONGESTION 10 Medical ORAL) Branch [facility] Yes Take by Un swapnil (ROBITUSSIN 7-17 mouth. ity of CHEST 15:31: [place] CONGESTION 10 Medical ORAL) Branch [facility] 0 Yes Take by Un swapnil (ROBITUSSIN 7-17 mouth. ity of CHEST 15:31: [place] CONGESTION 10 Medical ORAL) Branch [facility] 2018- Yes Take by Un swapnil (ROBITUSSIN 7-17 mouth. ity of CHEST 15:31: [place] CONGESTION 10 Medical ORAL) [facility] Yes Take by Un swapnil (ROBITUSSIN 7-17 mouth. ity of CHEST 15:31: [place] CONGESTION 10 Medical ORAL) Branch [facility] 0 Yes Take by Un swapnil (ROBITUSSIN 7-17 mouth. ity of CHEST 15:31: [place] CONGESTION 10 Medical ORAL) Branch [facility] 2018-0 Yes Take by Un swapnil (ROBITUSSIN 7-17 mouth. ity of CHEST 15:31: [place] CONGESTION 10 Medical ORAL) Branch [facility] 0 Yes Take by Un swapnil (ROBITUSSIN 7-17 mouth. ity of CHEST 15:31: [place] CONGESTION 10 Medical ORAL) [facility] Yes Take by Un swapnil (ROBITUSSIN 7-17 mouth. ity of CHEST 15:31: [place] CONGESTION 10 Medical ORAL) [facility] 2018-0 Yes Take by Un swapnil (ROBITUSSIN 7-17 mouth. ity of CHEST 15:31: [place] CONGESTION 10 Medical ORAL) Branch Immunizations Ordered Filled Immunization Date Status Comments [facility] e Immunization Name Name TDAP (ADACEL) 2019-07-21 Completed University of VACCINE 00:00:00 [facility] TDAP (ADACEL) 2019-07-21 Completed University of VACCINE 00:00:00 [facility] TDAP (ADACEL) 2019-07-21 Completed University of VACCINE 00:00:00 [place] [facility] TDAP (ADACEL) 2019-07-21 Completed University of VACCINE 00:00:00 [place] [facility] TDAP (ADACEL) 2019-07-21 Completed University of VACCINE 00:00:00 [place] [facility] TDAP (ADACEL) 2019-07-21 Completed University of VACCINE 00:00:00 [place] [facility] TDAP (ADACEL) 2019-07-21 Completed University of VACCINE 00:00:00 [place] [facility] TDAP (ADACEL) 2019-07-21 Completed University of VACCINE 00:00:00 [place] [facility] TDAP (ADACEL) 2019-07-21 Completed University of VACCINE 00:00:00 [place] [facility] TDAP (ADACEL) 2019-07-21 Completed University of VACCINE 00:00:00 [place] [facility] TDAP (ADACEL) 2019-07-21 Completed University of VACCINE 00:00:00 [facility] TDAP (ADACEL) 2019-07-21 Completed University of VACCINE 00:00:00 [facility] Branch TDAP (ADACEL) 2019-07-21 Completed University of VACCINE 00:00:00 [facility] Branch TDAP (ADACEL) 2019-07-21 Completed University of VACCINE 00:00:00 [facility] Branch TDAP (ADACEL) 2019-07-21 Completed University of VACCINE 00:00:00 [place] [facility] TDAP (ADACEL) 2019-07-21 Completed University of VACCINE 00:00:00 [place] [facility] TDAP (ADACEL) 2019-07-21 Completed University of VACCINE 00:00:00 [place] [facility] TDAP (ADACEL) 2019-07-21 Completed University of VACCINE 00:00:00 [place] [facility] TDAP (ADACEL) 2019-07-21 Completed University of VACCINE 00:00:00 [place] [facility] TDAP (ADACEL) 2019-07-21 Completed University of VACCINE 00:00:00 [place] [facility] TDAP (ADACEL) 2019-07-21 Completed University of VACCINE 00:00:00 [place] [facility] TDAP (ADACEL) 2019-07-21 Completed University of VACCINE 00:00:00 [place] [facility] TDAP (ADACEL) 2019-07-21 Completed University of VACCINE 00:00:00 [place] [facility] TDAP (ADACEL) 2019-07-21 Completed University of VACCINE 00:00:00 [place] [facility] TDAP (ADACEL) 2019-07-21 Completed University of VACCINE 00:00:00 [facility] Branch TDAP (ADACEL) 2019-07-21 Completed University of VACCINE 00:00:00 [facility] Branch TDAP (ADACEL) 2019-07-21 Completed University of VACCINE 00:00:00 [facility] Branch TDAP (ADACEL) 2019-07-21 Completed University of VACCINE 00:00:00 [facility] Branch TDAP (ADACEL) 2019-07-21 Completed University of VACCINE 00:00:00 [facility] Branch TDAP (ADACEL) 2019-07-21 Completed University of VACCINE 00:00:00 [facility] Branch TDAP (ADACEL) 2019-07-21 Completed University of VACCINE 00:00:00 [facility] Branch TDAP (ADACEL) 2019-07-21 Completed University of VACCINE 00:00:00 [facility] Branch TDAP (ADACEL) 2019-07-21 Completed University of VACCINE 00:00:00 [facility] TDAP (ADACEL) 2019-07-21 Completed University of VACCINE 00:00:00 [facility] TDAP (ADACEL) 2019-07-21 Completed University of VACCINE 00:00:00 [facility] TDAP (ADACEL) 2019-07-21 Completed University of VACCINE 00:00:00 [facility] TDAP (ADACEL) 2019-07-21 Completed University of VACCINE 00:00:00 [facility] Vital Signs Vital Name Observation Time Observation Value Comments Source Systolic blood 2020-08-09 15:08:00 127 mm[Hg] Univer sity of pressure [facility] Diastolic blood 2020-08-09 15:08:00 80 mm[Hg] Unive rsity of pressure [facility] Heart rate 2020-08-09 15:08:00 112 /min [facility] Body temperature 2020-08-09 15:08:00 36.33 Qian [facility] Respiratory rate 2020-08-09 15:08:00 16 /min [facility] Body height 2020-08-09 15:08:00 164.6 cm [facility] Body weight 2020-08-09 15:08:00 129.956 kg [facility] BMI 2020-08-09 15:08:00 47.97 kg/m2 [facility] Systolic blood 2020-08-09 15:08:00 127 mm[Hg] Univer sity of pressure [place] [facility] Diastolic blood 2020-08-09 15:08:00 80 mm[Hg] Unive rsity of pressure [place] [facility] Heart rate 2020-08-09 15:08:00 112 /min [facility] [place] [facility] Body temperature 2020-08-09 15:08:00 36.33 Qian Univ ers[facility] of [place] [facility] Respiratory rate 2020-08-09 15:08:00 16 /min Univ ersity of [place] [facility] Body height 2020-08-09 15:08:00 164.6 cm [facility] [place] [facility] Body weight 2020-08-09 15:08:00 129.956 kg [facility] [place] [facility] BMI 2020-08-09 15:08:00 47.97 kg/m2 [facility] [place] [facility] Systolic blood 2020-04-06 13:20:00 115 mm[Hg] Univer sity of pressure [place] [facility] Diastolic blood 2020-04-06 13:20:00 75 mm[Hg] Unive rsity of pressure [place] [facility] Heart rate 2020-04-06 13:20:00 71 /min [facility] [place] [facility] Body temperature 2020-04-06 13:20:00 36.78 Qian [facility] ers[facility] [place] [facility] Respiratory rate 2020-04-06 13:20:00 16 /min Univ ersity of [place] [facility] Body height 2020-04-06 13:20:00 162.6 cm [facility]i [facility] [place] [facility] Body weight 2020-04-06 13:20:00 127.325 kg [facility]i [facility] [place] [facility] BMI 2020-04-06 13:20:00 48.18 kg/m2 [facility] [place] [facility] Systolic blood 2020-02-23 13:24:00 122 mm[Hg] Univer sity of pressure [place] [facility] Diastolic blood 2020-02-23 13:24:00 71 mm[Hg] Unive rsity of pressure [place] [facility] Heart rate 2020-02-23 13:24:00 64 /min [facility]i [facility] of [place] [facility] Body temperature 2020-02-23 13:24:00 36.61 Qian [facility] ers[facility] of [place] [facility] Respiratory rate 2020-02-23 13:24:00 16 /min Univ ersity of [place] [facility] Body height 2020-02-23 13:24:00 162.6 cm [facility] [place] [facility] Body weight 2020-02-23 13:24:00 127.574 kg [facility] [place] [facility] BMI 2020-02-23 13:24:00 48.28 kg/m2 [facility] [place] [facility] Systolic blood 2020-02-09 13:45:00 106 mm[Hg] Univer sity of pressure [place] [facility] Diastolic blood 2020-02-09 13:45:00 75 mm[Hg] Unive rsity of pressure [place] [facility] Heart rate 2020-02-09 13:45:00 83 /min [facility] [place] [facility] Body temperature 2020-02-09 13:45:00 36.44 Qian Univ ersity of [place] [facility] Respiratory rate 2020-02-09 13:45:00 16 /min Univ ersity of [place] [facility] Body height 2020-02-09 13:45:00 162.6 cm [facility] [place] [facility] Body weight 2020-02-09 13:45:00 129.36 kg [facility] [place] [facility] BMI 2020-02-09 13:45:00 48.95 kg/m2 [facility] [place] [facility] Systolic blood 2020-02-02 14:20:00 132 mm[Hg] Univer sity of pressure [place] [facility] Diastolic blood 2020-02-02 14:20:00 82 mm[Hg] Unive rsity of pressure [place] [facility] Heart rate 2020-02-02 14:20:00 72 /min [facility] [place] [facility] Body temperature 2020-02-02 14:20:00 36.67 Qian Univ ers[facility] of [place] [facility] Respiratory rate 2020-02-02 14:20:00 16 /min Univ ersity of [place] [facility] Body height 2020-02-02 14:20:00 162.6 cm [facility] [place] [facility] Body weight 2020-02-02 14:20:00 131.118 kg [facility] BMI 2020-02-02 14:20:00 49.62 kg/m2 [facility] Systolic blood 2019-11-15 14:00:00 116 mm[Hg] [facility] Diastolic blood 2019-11-15 14:00:00 75 mm[Hg] Unive rsity of [facility] [place] [facility] Heart rate 2019-11-15 14:00:00 76 /min [facility] Body temperature 2019-11-15 14:00:00 36.89 Qian Univ ersity [facility] Respiratory rate 2019-11-15 14:00:00 16 /min Univ [facility] Body height 2019-11-15 14:00:00 162.6 cm [facility] Body weight 2019-11-15 14:00:00 135.739 kg [facility] BMI 2019-11-15 14:00:00 51.37 kg/m2 [facility] Systolic blood 2019-09-27 16:12:00 121 mm[Hg] Univer sity of pressure [facility] Diastolic blood 2019-09-27 16:12:00 83 mm[Hg] Unive rsity of pressure [facility] Heart rate 2019-09-27 16:12:00 86 /min [facility] Body temperature 2019-09-27 16:12:00 36.44 Qian [facility] Respiratory rate 2019-09-27 16:12:00 16 /min [facility] Body height 2019-09-27 16:12:00 162.6 cm [facility] Body weight 2019-09-27 16:12:00 144.896 kg [facility] BMI 2019-09-27 16:12:00 54.83 kg/m2 [facility] Systolic blood 2019-09-22 19:44:00 117 mm[Hg] Univer sity of pressure [facility] Diastolic blood 2019-09-22 19:44:00 75 mm[Hg] Unive rsity of pressure [facility] Heart rate 2019-09-22 19:44:00 95 /min [facility] Body temperature 2019-09-22 19:44:00 36.78 Qian [facility] Respiratory rate 2019-09-22 19:44:00 18 /min [facility] Oxygen saturation in 2019-09-22 19:44:00 98 /min [place] of Arterial blood by [facility] Pulse oximetry Branch Body height 2019-09-20 15:41:00 162.6 cm [facility] [place] [facility] Body weight 2019-09-20 15:41:00 152.862 kg [facility] BMI 2019-09-20 15:41:00 57.85 kg/m2 [facility] Systolic blood 2019-09-14 14:16:00 134 mm[Hg] [facility] Diastolic blood 2019-09-14 14:16:00 89 mm[Hg] [facility] Heart rate 2019-09-14 14:16:00 87 /min [facility] Body temperature 2019-09-14 14:16:00 36.56 Qian [facility] Respiratory rate 2019-09-14 14:16:00 16 /min [facility] Body height 2019-09-14 14:16:00 162.6 cm [facility] Body weight 2019-09-14 14:16:00 149.29 kg [facility] BMI 2019-09-14 14:16:00 56.49 kg/m2 [facility] Systolic blood 2019-09-08 15:34:00 131 mm[Hg] [facility] Diastolic blood 2019-09-08 15:34:00 83 mm[Hg] [facility] Heart rate 2019-09-08 15:34:00 85 /min [facility] Body temperature 2019-09-08 15:34:00 36.11 Qian [facility] Respiratory rate 2019-09-08 15:34:00 16 /min [facility] Body height 2019-09-08 15:34:00 162.6 cm [facility] Body weight 2019-09-08 15:34:00 149.007 kg [facility] BMI 2019-09-08 15:34:00 56.39 kg/m2 [facility] Systolic blood 2019-09-01 14:31:00 92 mm[Hg] [facility] Diastolic blood 2019-09-01 14:31:00 64 mm[Hg] [facility] Heart rate 2019-09-01 14:25:00 81 /min [facility] Body temperature 2019-09-01 14:25:00 36.22 Qian [facility] Respiratory rate 2019-09-01 14:25:00 16 /min [facility] Body height 2019-09-01 14:25:00 162.6 cm [facility] Body weight 2019-09-01 14:25:00 147.589 kg [facility] BMI 2019-09-01 14:25:00 55.85 kg/m2 [facility] Systolic blood 2019-08-17 17:31:00 118 mm[Hg] [facility] Diastolic blood 2019-08-17 17:31:00 74 mm[Hg] [facility] Heart rate 2019-08-17 17:20:00 120 /min [facility] Body temperature 2019-08-17 17:20:00 36.67 Qian [facility] Respiratory rate 2019-08-17 17:20:00 16 /min [facility] Body height 2019-08-17 17:20:00 162.6 cm [facility] Body weight 2019-08-17 17:20:00 147.476 kg [facility] BMI 2019-08-17 17:20:00 55.81 kg/m2 [facility] Systolic blood 2019-08-04 15:33:00 137 mm[Hg] [facility] Diastolic blood 2019-08-04 15:33:00 90 mm[Hg] [facility] Heart rate 2019-08-04 15:33:00 92 /min [facility] Body temperature 2019-08-04 15:33:00 36.83 Qian [facility] Respiratory rate 2019-08-04 15:33:00 16 /min [facility] Body height 2019-08-04 15:33:00 162.6 cm [facility] Body weight 2019-08-04 15:33:00 144.697 kg [facility] BMI 2019-08-04 15:33:00 54.76 kg/m2 [...] 2019-03-21 14:31:00 52.25 kg/m2 [facility] Systolic blood 2019-02-24 15:04:00 128 mm[Hg] [facility] Diastolic blood 2019-02-24 15:04:00 80 mm[Hg] [facility]ive [facility]ity [facility] Heart rate 2019-02-24 15:04:00 75 /min [facility] Body temperature 2019-02-24 15:04:00 36.61 Qian [facility] Respiratory rate 2019-02-24 15:04:00 18 /min [facility] Body height 2019-02-24 15:04:00 162.6 cm [facility] Body weight 2019-02-24 15:04:00 138.517 kg [facility] BMI 2019-02-24 15:04:00 52.42 kg/m2 [facility] Systolic blood 2019-01-26 15:20:00 114 mm[Hg] [facility] Diastolic blood 2019-01-26 15:20:00 62 mm[Hg] [facility]ive [facility] BMI 2019-01-26 15:15:00 51.69 kg/m2 [facility] Heart rate 2019-01-26 15:15:00 117 /min [facility] Body temperature 2019-01-26 15:15:00 36.94 Qian [facility] Respiratory rate 2019-01-26 15:15:00 16 /min [facility] Body height 2019-01-26 15:15:00 162.6 cm [facility] Body weight 2019-01-26 15:15:00 136.589 kg [facility] Procedures Procedure Date / Time Performing Clinician Source Performed [id number] 2021-05-28 00:00:00 EKHOB [facility] DISMISSAL OF PATIENT 2020-08-09 06:01:00 [facility] [place] POCT TEST 2020-02-09 13:59:00 Lindy Godwin [facility] POCT TEST 2020-02-02 14:21:00 Lindy Godwin [facility] ASSIGNMENT OF BENEFITS 2020-02-02 13:54:27 Doctor Unassigned, [facility] [place] POCT TEST 2019-11-15 14:06:00 Yolanda Ruano [facility] CBC WITH DIFFERENTIAL 2019-09-21 07:51:00 Vincent Mukherjee [facility] GAS 2019-09-20 23:55:00 Richy Molinahanie [facility] SECTION 2019-09-20 22:13:00 Arleen Pineda [facility] URINALYSIS 2019-09-20 16:33:00 [facility]AT [facility]ATIO URINE 2019-09-20 16:33:00 Kortney Molina [facility] SGOT (ASPARTATE AMINO 2019-09-20 16:32:00 Kortney Molina [facility] TRANSFER) Medical Branch CREATININE 2019-09-20 16:32:00 Richy Molinahanie [facility] ALANINE AMINO 2019-09-20 16:32:00 Richy Molinahanie [facility] TRANSFERASE(SGPT Medical Branch LACTATE DEHYDROGENASE 2019-09-20 16:32:00 Kortney Molina [facility] URIC ACID 2019-09-20 16:32:00 Richy Molinahanie [facility] CBC WITH DIFFERENTIAL 2019-09-20 16:32:00 [facility] HEPATITIS B SURFACE 2019-09-20 16:32:00 Kortney Molina [facility] ANTIGEN [facility] GALV ONLY - SYPHILIS 2019-09-20 16:32:00 Kortney Molina [facility] IGG/IGM [facility] PANEL IDENTIFICATION 2019-09-20 15:54:00 Christine Brady [facility] HB ABO GROUPING 2019-09-20 15:54:00 Alexandrea Bradyanne [facility] RHO (D) IMMUNE GLOBULIN 2019-09-20 15:54:00 Vincent Mukherjee [facility] HOSPITAL ADMISSION 2019-09-20 05:01:00 Doctor Unassigned, [facility] POCT URINALYSIS 2019-09-14 14:17:00 Lindy Godwin [facility] POCT URINALYSIS 2019-09-08 15:35:00 Lindy Godwin [facility] POCT URINALYSIS 2019-09-01 14:27:00 Lindy Godwin [facility] PANEL IDENTIFICATION 2019-08-04 15:42:00 [facility] HB ABO GROUPING 2019-08-04 15:42:00 Lindy Godwin [facility] ANTIBODY TITER INTERPS 2019-08-04 15:42:00 Lindy Godwin [facility] POCT URINALYSIS W/O 2019-08-04 15:38:00 Lindy Godwin [facility] SPECIFIC GRAVITY [facility] POCT URINALYSIS 2019-03-21 14:33:00 Lindy Godwin [facility] PANEL IDENTIFICATION 2019-02-24 15:22:00 Rehana Hinds [facility] WORKUP, BLOOD 2019-02-24 15:22:00 Rehana Hinds [facility] ANTIBODY TITER INTERPS 2019-02-24 15:22:00 Rehana Hinds [facility] POCT URINALYSIS 2019-02-24 15:07:00 Lindy Godwin [facility] URINE CULTURE 2019-01-26 16:35:00 Lindy Godwin [facility] GC & CHLAMYDIA AMPLIFIED 2019-01-26 16:35:00 Lindy Godwin [facility] ASSAY [facility] LAB ONLY PAP SMEAR-LIQUID 2019-01-26 16:35:00 Lindy Godwin [facility] PAP SMEAR-LIQUID BASED-CP 2019-01-26 16:35:00 Lindy Godwin [facility] GLUCOSE 1 HOUR POST 2019-01-26 16:23:00 Lindy Godwin [facility] CBC WITH DIFFERENTIAL 2019-01-26 16:23:00 [facility] RU[facility]LL[facility] SCRE[facility] IGG 2019-01-26 16:23:00 Lindy Godwin [facility] VZV ANTIBODY SCREEN 2019-01-26 16:23:00 Lindy Godwin [facility] HEPATITIS B SURFACE 2019-01-26 16:23:00 Lindy Godwin [facility] HCV ANTIBODY 2019-01-26 16:23:00 Lindy Godwin [facility] ANTIGEN TYPING PATIENT 2019-01-26 16:23:00 Lindy Godwin [facility] PANEL IDENTIFICATION 2019-01-26 16:23:00 Lindy Godwin Un [facility] [place] WORKUP, BLOOD 2019-01-26 16:23:00 Lindy Godwin [facility] BANK [facility] ANTIBODY TITER INTERPS 2019-01-26 16:23:00 Lindy Godwin [facility] HIV 1/2 AG-AB WITH REFLEX 2019-01-26 16:23:00 Lindy Godwin [facility] GALV ONLY - SYPHILIS 2019-01-26 16:23:00 [facility] POCT TEST 2019-01-26 15:27:00 Lindy Godiwn Uni versity of [facility] POCT URINALYSIS W/O 2019-01-26 15:27:00 Lindy Godwin Uni [facility] Encounters Start End Encounter Admission Attending Care Care Encounter Source Date/Time Date/Time Type Type Clinicians Facility Department ID 2021-05-27 Inpatient EL Ekhaese, HCABM DAYS [id number] [facility] 10:00:00 [place] [id number] [facility] 2021-05-09 Outpatient P [facility] MCKENNA [id number] Univers 13:32:45 ity of [facility] 2021-04-04 Inpatient EL Ekhaese, HCABM DAYS [id number] [facility] 16:00:00 [place] [id number] [facility] 2021-02-20 Inpatient EL Albina HCAPM SUNNI [id number] [facility] 12:00:00 [place] [id number] [facility] 2021-05-29 2021-05-30 Inpatient EL Ekhaese, HCABM SURG [id number] [facility] 10:48:00 13:18:00 [place] 18 [facility] 2021-05-29 2021-05-30 Inpatient EL Ekhaese, HCABM SURG [id number] [facility] 10:48:00 13:18:00 [place] [id number] [facility] 2021-05-28 2021-05-28 Inpatient EL Ekhaese, HCABM SURG [id number] [facility] 15:36:00 07:00:00 [place] [id number] [facility] 2021-05-21 2021-05-21 Outpatient Ekhaese, HCACL LABO [id number] [facility] 17:32:00 17:32:00 [place] [id number] Brunilda eric [facility] 2021-04-04 2021-04-04 Outpatient EL Ekhaese, HCABM DAYS [id number] [facility] 08:00:00 08:00:00 [place] 91 [facility] 2021-03-29 2021-03-29 Outpatient Ekhaese, HCACL LABO [id number] [facility] 11:40:00 11:40:00 [place] [id number] Brunilda oneill [facility] 2021-02-21 2021-02-21 Outpatient DIAMOND Montemayor, HCAPM DAYS [id number] [facility] 11:01:00 11:01:00 [place] [id number] [facility] 2021-02-21 2021-02-21 Outpatient DIAMOND Montemayor HCAPM HCAPM [id number] [facility] 11:01:00 11:01:00 [place] 07 [facility] 2021-01-23 2021-01-23 Outpatient DIAMOND Yeboah, HCABM DIAB [id number] [facility] 09:14:00 09:14:00 [place] [id number] [facility] 2020-11-07 2020-11-07 Outpatient R AKINSIPE, [facility] [id number] Univers 08:15:00 08:15:00 LINDY [id number] candy o [facility] 2020-11-07 2020-11-07 Outpatient R AKINSIPE, [facility] [id number] Univers 08:15:00 08:15:00 LINDY gupta o [facility] 2020-08-09 2020-08-09 Office Akinsipe, [facility] [id number] 08:55:29 10:04:43 Visit Lindy Trinh SQL DEVELOPER DBA [id number] [facility] [id number] MATERNAL [phone] & CHILD [address] [place] [address] 2020-08-09 2020-08-09 Office Akinsipe, [facility] [id number] Univers 08:55:29 10:04:43 Visit Lindy Trinh SQL DEVELOPER DBA [id number] [facility] [id number] Han as MATERNAL [phone] [facility] & CHILD [address] [place] [address] 2020-08-09 2020-08-09 Outpatient R AKINSIPE, [facility] [id number] Univers 09:15:00 09:15:00 LINDY [id number] candy o [facility] 2020-08-09 2020-08-09 Outpatient R AKINSIPE, [facility] [id number] Univers 09:15:00 09:15:00 LINDY gupta o [facility] 2020-08-09 2020-08-09 Orders Doctor CHANDA [id number] Univers 00:00:00 00:00:00 Only Unassigned, BJ [id number] ity of [facility] [id number] Han as [phone] [address] 2020-04-06 2020-04-06 Office Akinsipe, [facility] [id number] Univers 08:07:21 08:42:27 Visit Lindy Trinh SQL DEVELOPER DBA [id number] ity [facility] [id number] Han as MATERNAL [phone] Med ical & CHILD [address] [place] [address] 2020-04-06 2020-04-06 Outpatient R AKINSIPE, [facility] [id number] Univers 08:15:00 08:15:00 LINDY [id number] ithawk o [facility] 2020-04-06 2020-04-06 Outpatient R AKINSIPE, [facility] [id number] Univers 08:15:00 08:15:00 LINDY candy o [facility] 2020-02-23 2020-02-23 Office Akinsipe, [facility] [id number] Univers 08:06:22 08:56:47 Visit Lindy Trinh SQL DEVELOPER D[employer] [id number] ity [facility] [id number] Han as MATERNAL [phone] [facility] ical & CHILD [address] [place] [address] 2020-02-23 2020-02-23 Outpatient R AKINSIPE, [facility] [id number] Univers 08:15:00 08:15:00 LINDY [id number] ity o [facility] 2020-02-23 2020-02-23 Outpatient R AKINSIPE, [facility] [id number] Univers 08:15:00 08:15:00 LINDY ity o [facility] 2020-02-09 2020-02-09 Office Akinsipe, [facility] [id number] Univers 08:32:42 09:40:50 Visit Lnidy Trinh SQL DEVELOPER DBA [id number] ity [facility] [id number] Han as MATERNAL [phone] [facility] [address] [place] [address] 2020-02-09 2020-02-09 Outpatient R AKINSIPE, [facility] [id number] Univers 08:30:00 08:30:00 LINDY ity o f [facility] 2020-02-09 2020-02-09 Outpatient R AKINSIPE, [facility] [id number] Univers 08:30:00 08:30:00 LINDY ity o f [facility] 2020-02-07 2020-02-07 Outpatient R [facility] [id number] Univers 08:30:00 08:30:00 [id number] ity of [facility] 2020-02-07 2020-02-07 Outpatient R [facility] [id number] Univers 08:30:00 08:30:00 ity of [facility] 2020-02-02 2020-02-02 Office Akinpe, [facility] [id number] Univers 08:50:24 09:55:59 Visit Lindy Trinh SQL DEVELOPER DBA [id number] ity [facility] [id number] Han as MATERNAL [id number] [facility] & CHILD [address] [place] [address] 2020-02-02 2020-02-02 Outpatient R AKINSIPE, [facility] [id number] Univers 08:15:00 08:15:00 LINDY [id number] ity o f [facility] 2020-02-02 2020-02-02 Outpatient R AKINSIPE, [facility] [id number] Univers 08:15:00 08:15:00 LINDY ity o f [facility] 2020-02-02 2020-02-02 Orders Doctor ARMAS [id number] Univers 00:00:00 00:00:00 Only Unassigned, BJ [id number] ity of [facility] [id number] Han as [phone] [address] 2020-01-17 2020-01-17 Telephone Tato [facility] [id number] Univers 00:00:00 00:00:00 Lindy Trinh SQL DEVELOPER DBA [id number] ity [facility] [id number] Han as MATERNAL [id number] [facility] ical & CHILD [address] [place] [address] 2019-11-15 2019-11-15 Nurse Visit, [facility] Nurse [facility] 1.2 .840.114 [id number] Univers 08:58:04 09:22:08 Visit Lindy Godwin SQL DEVELOPER DBA [id number]. 10 ity of [facility] [id number] Han as MATERNAL [id number] [address] 2019-11-15 2019-11-15 Outpatient R [facility] [id number] Univers 09:00:00 09:00:00 ity [facility] 2019-11-15 2019-11-15 Outpatient R [facility] [id number] Univers 09:00:00 09:00:00 ity [facility] 2019-11-02 2019-11-02 Outpatient R TATO, [facility] [id number] Univers 08:00:00 08:00:00 LINDY [id number] ity o f [facility] 2019-11-02 2019-11-02 Outpatient R TATO, [facility] [id number] Univers 08:00:00 08:00:00 LINDY ity o f [facility] 2019-11-01 2019-11-01 [facility] [id number] Univers 10:02:16 10:10:30 ne Visit Lindy Trinh SQL DEVELOPER DBA [id number] ity of [facility] [id number] Han as MATERNAL [phone] [facility] [address] [place] [address] 2019-11-01 2019-11-01 [facility] [id number] Univers 10:00:00 10:00:00 LINDY [id number] candy haddad [facility] 2019-11-01 2019-11-01 Outpatient R TATO [facility] [id number] Univers 10:00:00 10:00:00 LINDY haddad [facility] 2019-10-12 2019-10-12 Telemedici Rupertocandeaureliano [facility] [id number] Univers 08:05:41 09:57:15 ne Visit Lindy Trinh SQL DEVELOPER D[employer] [id number] [facility] [id number] Han as MATERNAL [id number] [facility] & CHILD [address] [place] [address] 2019-10-12 2019-10-12 Outpatient R TATO [facility] [id number] Univers 09:45:00 09:45:00 LINDY candy haddad [facility] 2019-10-12 2019-10-12 Outpatient R TATO [facility] [id number] Univers 09:45:00 09:45:00 LINDY haddad [facility] 2019-09-27 2019-09-27 Nurse Visit, [facility] Nurse [facility] 1.2 .840.114 [id number] Univers 11:02:50 11:23:37 Visit Lindy Godwin SQL DEVELOPER DBA [id number]. 10 ity [facility] [id number] Han as MATERNAL [id number] [facility] & [address] 2019-09-27 2019-09-27 Outpatient R TATO [facility] [id number] Univers 11:00:00 11:00:00 LINDY haddad [facility] 2019-09-20 2019-09-22 Hospital Ramos CHANDA 1.2.840.114 [id number] Univers 10:19:00 16:00:00 Encounter Jorge LORENZO [id number] ity [facility] [id number] Han as [id number] [address] 2019-09-21 2019-09-21 Outpatient R TATO [facility] [id number] Univers 08:00:00 08:00:00 LINDY [id number] ity o f [facility] 2019-09-21 2019-09-21 Outpatient R AKINSIPE, [facility] [id number] Univers 08:00:00 08:00:00 LINDY ity o f [facility] 2019-09-20 2019-09-20 Orders Doctor CHANDA 1.2.840.114 [id number] Univers 00:00:00 00:00:00 Only Unassigned, BJ [id number] ity of [place] [facility] [id number] Han as [phone] [address] 2019-09-15 2019-09-15 Outpatient R AKINSIPE, [facility] [id number] Univers 08:15:00 08:15:00 LINDY ity o [facility] 2019-09-14 2019-09-14 Routine Akinsipe, [facility] [id number] Univers 07:59:23 08:34:31 Lindy C SQL DEVELOPER DBA [id number] ity of Visit [facility] [id number] Han as MATERNAL [id number] Med ical & CHILD [address] [place] [address] 2019-09-14 2019-09-14 Outpatient R AKINSIPE, [facility] [id number] Univers 08:00:00 08:00:00 LINDY ity o [facility] 2019-09-14 2019-09-14 Outpatient R AKINSIPE, [facility] [id number] Univers 08:00:00 08:00:00 LINDY ity o [facility] 2019-09-08 2019-09-08 Routine Akinsipe, [facility] [id number] Univers 08:56:52 09:51:11 Lindy C SQL DEVELOPER DBA [id number] ity of Visit [facility] [id number] Han as MATERNAL [id number] [facility] ical & CHILD [address] [place] [address] 2019-09-08 2019-09-08 Outpatient R AKINSIPE, [facility] [id number] Univers 09:00:00 09:00:00 LINDY ity o [facility] 2019-09-02 2019-09-02 Abstract Tato, [facility] 1.2.840.114 [id number] Univers 00:00:00 00:00:00 Lindy C SQL DEVELOPER DBA [id number] ity of [facility] [id number] Han as MATERNAL [phone] [facility] & CHILD [address] [place] [address] 2019-09-01 2019-09-01 Analytical Statistician Ultrasound, Janeyyamil MDMB 1.2 .840.114 [id number] Univers 09:04:51 09:34:51 Visit Akinsiaureliano Lindy C SQL DEVELOPER DBA 350.1.13. 10 ity of [place] Pat[place] REGIONAL 4.2.7.2.686 [place] MATERNAL [phone] [facility] ical & CHILD [address] [facility] 2019-09-01 2019-09-01 Routine Akinsipe, MDMB 1.2.473.558 [id number] Univers 07:51:10 09:03:14 Lindy C SQL DEVELOPER DBA 350.1.13.10 ity of Visit REGIONAL 4.2.7.2.686 [place] as MATERNAL [phone] [facility] & CHILD [address] [place] [address] 2019-08-17 2019-08-17 Routine Akinpe, MDMB 1.2.243.104 [id number] Univers 10:53:54 11:43:25 Lindy C SQL DEVELOPER DBA 350.1.13.10 ity of Visit REGIONAL 4.2.7.2.686 [place] as MATERNAL [phone] [facility] & CHILD [address] [place] [address] 2019-08-04 2019-08-09 Routine Akinsipe, MDMB 1.2.380.500 [id number] Univers 09:14:38 10:20:44 Lindy C SQL DEVELOPER DBA 350.1.13.10 ity of Visit REGIONAL 4.2.7.2.686 [place] as MATERNAL [phone] [facility] & CHILD [address] [place] [address] 2019-08-09 2019-08-09 Telephone Akinsipe, MDMB 1.2.840.114 [id number] Univers 00:00:00 00:00:00 Lindy C SQL DEVELOPER DBA 350.1.13.10 ity of REGIONAL 4.2.7.2.686 [place] as MATERNAL [phone] [facility] & CHILD [address] [place] [address] 2019-08-09 2019-08-09 Abstract [facility] 1.2.840.114 [id number] Univers 00:00:00 00:00:00 Lindy C SQL DEVELOPER DBA 350.1.13.10 ity of REGIONAL 4.2.7.2.686 [place] as MATERNAL [phone] [facility] & CHILD [address] [place] [address] 2019-08-05 2019-08-05 Telephone [facility] 1.2.840.114 [id number] Univers 00:00:00 00:00:00 Lindy C SQL DEVELOPER DBA 350.1.13.10 ity of REGIONAL 4.2.7.2.686 [place] as MATERNAL [phone] [facility] & [address] 2019-07-11 2019-07-12 Outpatient Jose Alfredo THOMPSON [facility] MCKENNA [id number] Univers 20:27:51 03:01:00 CHRISTINA gupta [facility] 2019-03-21 2019-03-21 Routine Faculty, Huan Romero [facility] 1.2 .840.114 [id number] Univers 09:23:05 10:17:43 Mike Mace SQL DEVELOPER DBA 350.1.13.10 ity of Visit REGIONAL 4.2.7.2.686 [place] as MATERNAL [phone] [facility] & CHILD [address] [place] [address] 2019-03-07 2019-03-07 Telephone [facility], [facility] 1.2.921.937 [id number] Univers 00:00:00 00:00:00 Deloris-N SQL DEVELOPER DBA 350.1.13.10 ity of p/High REGIONAL 4.2.7.2.686 [place] as MATERNAL [phone] [facility] & CHILD [address] [place] [address] 2019-03-04 2019-03-04 CHANDA Arguello 1.2.840.114 [id number] Univers 00:00:00 00:00:00 Management Aubree LORENZO 350.1.13.10 ity of [facility] 4.2.7.2.686 [place] as [phone] [address] 2019-02-25 2019-02-25 Telephone Tato [facility] 1.2.840.114 [id number] Univers 00:00:00 00:00:00 Lindy C SQL DEVELOPER DBA 350.1.13.10 ity of [facility] 4.2.7.2.686 Han as MATERNAL [phone] Med ical & CHILD [address] [place] [address] 2019-02-24 2019-02-24 Routine Risk, Jsr-Xwkrt-Hn/High [facility] 1. 2.840.114 [id number] Univers 09:47:59 10:32:25 Rehana Hinds SQL DEVELOPER DBA 350.1.13.10 ity of Visit [facility] 4.2.7.2.686 [place] as MATERNAL [phone] [facility] ical & CHILD [address] [place] [address] 2019-02-17 2019-02-17 Abstract Rupertoaureliano [facility] 1.2.840.114 [id number] Univers 00:00:00 00:00:00 Lindy Trinh SQL DEVELOPER DBA 350.1.13.10 ity of [facility] 4.2.7.2.686 [place] as MATERNAL [phone] [facility] ical & CHILD [address] [place] [address] 2019-02-16 2019-02-16 Analytical Statistician Ultrasound, Rosie [facility] 1.2 .840.114 [id number] Univers 10:03:47 10:39:43 Visit Randolph Szymanski SQL DEVELOPER DBA 350.1.13.10 ity of [facility] 4.2.7.2.686 [place] as MATERNAL [phone] [facility] ical & CHILD [address] [facility] 2019-02-09 2019-02-09 Telephone Rupertoaureliano [facility] 1.2.840.114 [id number] Univers 00:00:00 00:00:00 Lindy C SQL DEVELOPER DBA 350.1.13.10 ity of [facility] 4.2.7.2.686 [place] as MATERNAL [phone] [facility] ical & CHILD [address] [facility] 2019-01-26 2019-02-08 Initial [facility], [facility] 1.2.891.415 [id number] Univers 09:47:56 13:19:30 Lindy Trinh SQL DEVELOPER DBA 350.1.13.10 ity of Visit [facility] 4.2.7.2.686 [place] as MATERNAL [phone] [facility] ical & CHILD [address] [place] [address] Results Test Description Test Time Test Comments [...] (test code = MDIFF) NO BASIC METABOLIC [id number] 05:40:00 Test Item Value Reference Range Interpretation [...] Modifi ed MDRD (test code = GFR) formula.Ch ronic kidney disease is defined as eith er kidney damageor GFR <60 mL/min/1.73 m2 for >3 months. [Automated mess age] The system [facility] [employer] generated this result transmitted ref erence range: >=60. Th e reference range was not used to int erpret this result as normal/abnormal . CREATININE (test 0.70 mg/dL 0.55-1.02 N Note harper ge in code = CREAT) reference rang e due to change in reagent. 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 Novel Coronavirus 21:37:00 Test Item Value Reference Range Interpretation Comments Novel Coronavirus Negative Negative Positive r esults are 2019 Inhouse (test indicativ e of the presence code = ZNUOF87UI) ofSARS-CoV -2 RNA, clinical correlation wit h [...] det ection of nucleic acids f rom pauUKXZ-NlC-2 v irus and diagnosis of SA RS-CoV-2 virusinfection. It is an Emergency Use Authorization ( EUA) testauthorized by the U.S. FDA. Novel Coronavirus 21:37:00 Test Item Value Reference Range Interpretation Comments Novel Coronavirus Negative Negative Positive r esults are 2019 Inhouse (test indicativ e of the presence code = [id number]) ofSARS-CoV -2 RNA, clinical correlation wit h [...] det ection of nucleic acids f rom liyYLZK-MlB-9 v irus and diagnosis of SA RS-CoV-2 virusinfection. It is an Emergency Use Authorization ( EUA) testauthorized by the U.S. FDA. HCG SERUM [id number] 14:33:00 Test Item Value Reference Range Interpretation Comments HCG SERUM QUAL (test NEGATIVE NEGATIVE This HC GQL test is NOT code = HCGQL) applicable for MALE patients.Check with nurse about probable order error.If Tumor Marker Test needed, nu rse should order test "HCG TU"(Test #550.94225)---- - COMPREHENSIVE METABOLIC [id number] 12:50:00 Test Item Value Reference Range Interpretation [...] >3 months. [Automated mess age] The system [employer] generated this result transmit ling reference range [...] due ALKP) to change in reagent. PROTHROMBIN [id number] 12:31:00 Test Item Value Reference Range Interpretation [...] (2.5-3.5) IS PATIENT ON ANTICOAGULANTS? NTHROMBOPLASTIN TIME [id number] 12:31:00 Test Item Value Reference Range Interpretation Comments THROMBOPLASTIN TIME PARTIAL 39.8 seconds 23.0-37.0 H (test code = PTT) IS PATIENT ON ANTICOAGULANTS? NCBC W/AUTO [id number] 12:20:00 Test Item Value Reference Range Interpretation [...] DIFF REQUIRED (test code NO = MDIFF) STOMACH,[id number] 13:40:00 Test Item Value Reference Range Interpretation Comments STOMACH,BIOPSY (test code = STOMBX) RUN DATE: 04/08/21 [place] [facility] PAGE 1 RUN TIME: 1341 Specimen Inquiry RUN USER: INTERFACE PATIENT: ANNIA MOSQUERA LOC: LUIS U #: [id number] AGE/SX: 30/F ROOM: RE04/04/21[facility] DR: Enrike Yeboah DO : 89 BED: DIS: STATUS: [facility] TLOC: SPEC #: [id number] RECD: 04/05/21 STATUS: [facility] #: [id number] CHERISE: 04/04/21-1700 [facility] DR: Enrike Yeboah I DO ENTERED: 04/05/21 [...] INTESTINAL METAPLASIA, DYSPLASIA, AND MALIGNANCY DMW/sm D 08908w6, 75181 MACROSCOPIC The first specimen is received in [...] CONTINUED ON NEXT PAGE RUN DATE: 04/08/21 [place] RUN TIME: 1341 Specimen Inquiry RUN USER: INTERFACE SPEC #: [id number] PATIENT: ANNIA MOSQUERA #[id number] (Continued) MACROSCOPIC (Continued) GROSS PERFORMED AT [facility] [address] [place] [address], [place] [address] (p)[phone] MICROSCOPIC All of the stains, including any controls performed, stain appropriately. MICROSCOPIC PERFORMED AT [facility] [address] [facility] [place] [address] (p)[phone] PERFORMING SITE Diagnosis performed at: [facility], [place] [address] [place] [address] Signed SIGNATURE ON FILE Vee Garcia MD 04/08/21 1340 END OF REPORT Novel Coronavirus 16:19:00 Test Item Value Reference Range Interpretation Comments Novel Coronavirus Negative Negative Positive r esults are 2019 Inhouse (test indicativ e of the presence code = [id number]) ofSARS-CoV -2 RNA, clinical correlation wit h [...] det ection of nucleic acids f rom vpdTMST-NqV-6 v irus and diagnosis of SA RS-CoV-2 virusinfection. It is an Emergency Use Authorization ( EUA) testauthorized by the U.S. FDA. Novel Coronavirus 16:19:00 Test Item Value Reference Range Interpretation Comments Novel Coronavirus Negative Negative Positive r esults are 2019 Inhouse (test indicativ e of the presence code = NAALI38UA) ofSARS-CoV -2 RNA, clinical correlation wit h [...] det ection of nucleic acids f rom mphKAXZ-MlF-0 v irus and diagnosis of SA RS-CoV-2 virusinfection. It is an Emergency Use Authorization ( EUA) testauthorized by the U.S. FDA. COMPREHENSIVE METABOLIC [id number] 12:52:00 Test Item Value Reference Range Interpretation [...] >3 months. [Automated mess age] The system [employer] generated this result transmit ling reference range [...] due ALKP) to change in reagent. URINALYSIS [id number] 12:39:00 Test Item Value Reference Range Interpretation [...] FEW MUCU) Urine Source? Clean CatchUR HCG [id number] 12:39:00 Test Item Value Reference Range Interpretation Comments UR HCG QUAL (test NEGATIVE This HCGQL test is NOT code = HCGQLU) applicable fo r MALE patients.Check with nurse about probable order error.If Tumor Marker Test needed, nu rse should order test "HCG TU"(Test #550.59490)---- - Urine Source? Clean CatchPROTHROMBIN [id number] 12:16:00 Test Item Value Reference Range Interpretation [...] (2.5-3.5) IS PATIENT ON ANTICOAGULANTS? NTHROMBOPLASTIN TIME [id number] 12:16:00 Test Item Value Reference Range Interpretation Comments THROMBOPLASTIN TIME PARTIAL 36.9 seconds 23.0-37.0 N (test code = PTT) IS PATIENT ON ANTICOAGULANTS? NCBC W/AUTO [id number] 12:10:00 Test Item Value Reference Range Interpretation [...] (test code NO = MDIFF) CBC W/AUTO [id number] 14:12:00 Test Item Value Reference Range Interpretation [...] MANUAL DIFF REQUIRED NO DIFF/SCN CRITERIA SLIDE Eric SANTO (test code = MDIFF) CONSISTA NT WITH AUTO DIFFERENTI AL. HCG SERUM [id number] 11:50:00 Test Item Value Reference Range Interpretation Comments HCG SERUM QUAL (test SERUM NEGATIVE SCREEN NEGATIVE code = HCGQL) COVID 19 INHOUSE [id number] 11:49:00 Test Item Value Reference Range Interpretation Comments COVID 19 INHOUSE AG NEGATIVE Negative Per manu facturer, (test code = negative result s should [id number]) be treated aspr esumptive and, if inconsi [...] symptoms co nsistent with COVID-19. CBC W/AUTO [id number] 11:42:00 Test Item Value Reference Range Interpretation [...] (test code = DIFF/SCN CRITERIA MDIFF) POCT [id number] 13:59:00 Test Item Value Reference Range Interpretation Comments POCT PREG (test code = 1605) Negative On board controls acceptable with C Yes Line (test code = 3574) POCT PREG LOT # (test code = 3575) POCT PREG TEST DATE (test code = 3576) [facility] [id number] 13:59:00 Test Item Value Reference Range Interpretation Comments POCT PREG (test code = 1605) Negative On board controls acceptable with C Yes Line (test code = 3574) POCT PREG LOT # (test code = 3575) POCT PREG TEST DATE (test code = 3576) [facility] [id number] 13:59:00 Test Item Value Reference Range Interpretation Comments POCT PREG (test code = 1605) Negative On board controls acceptable with C Yes Line (test code = 3574) POCT PREG LOT # (test code = 3575) POCT PREG TEST DATE (test code = 3576) [facility] [id number] 14:22:00 Test Item Value Reference Range Interpretation Comments POCT PREG (test code = 1605) Negative On board controls acceptable with C Yes Line (test code = 3574) POCT PREG LOT # (test code = 3575) POCT PREG TEST DATE (test code = 3576) [facility] [id number] 14:22:00 Test Item Value Reference Range Interpretation Comments POCT PREG (test code = 1605) Negative On board controls acceptable with C Yes Line (test code = 3574) POCT PREG LOT # (test code = 3575) POCT PREG TEST DATE (test code = 3576) [facility] [id number] 14:06:00 Test Item Value Reference Range Interpretation Comments POCT PREG (test code = 1605) Negative On board controls acceptable with C Yes Line (test code = 3574) POCT PREG LOT # (test code = 3575) POCT PREG TEST DATE (test code = 3576) [facility] SY[facility]IL[facility] [id number] 14:13:00 Test Item Value Reference Range Interpretation Comments Syphilis IgG/IgM (test Non-reactive Non-reactive code = 18469-3) LUTHER (test code = LUTHER) Non-reactive - No serologic evidence of T. pallidum infection. Cannot exclude incubating or early syphilis. Submit a second specimen in 2-4 weeks if syphilis is clinically suspected. Equivocal - Further testing to follow. Reactive - Further testing to follow. Lab Interpretation (test Normal code = 07701-8) [facility] WITH [id number] 09:26:00 Test Item Value Reference Range Interpretation Comments WBC (test code = See_Comment H [Automated 3840-2) message] The system which generated this result transmit ling reference range : 4.30 - 11.10 10*3/?L. The reference range was not used to interpret this result as normal/abnormal . RBC (test code = See_Comment [Automated 649-8) message] The system which generated this result [...] RDW-SD (test code = 44.3 fL 39-49.9 50055-8) RDW-CV (test code = 14.4 % 12-15.5 788-0) PLT (test code = See_Comment [Automated 777-3) message] The system which generated this result transmit ling reference range : 166 - 358 10*3/ ?L. The reference range was not u sed to interpret th is result as normal/abnormal . MPV (test code = 11.0 fL 9.5-12.9 17616-3) NRBC/100 WBC (test See_Comment [Automat ed code = 2817130932) message] The system which generated this result transmit ling reference range : 0.0 - 10.0 /100 WBCs. The reference range was not used to interpret this result as normal/abnormal . NRBC x10^3 (test code <0.01 See_Comment [Auto mated = 0625859073) message] The system which generated this result transmit ling reference range : 10*3/?L. The reference range was not used to interpret this result as normal/abnormal . GRAN MAT (NEUT) % 81.3 % (test code = 770-8) IMM GRAN % (test code 0.50 % = 8803492559) LYMPH % (test code = 10.0 % 736-9) MONO % (test code = 7.8 % 5905-5) EOS % (test code = 0.1 % 713-8) BASO % (test code = 0.3 % 706-2) GRAN MAT x10^3(ANC) 11.84 10*3/uL 1.88-7.09 H (test code = 1747642062) IMM GRAN x10^3 (test 0.08 10*3/uL 0-0.06 H code = 1592447868) LYMPH x10^3 (test code 1.46 10*3/uL 1.32-3.29 = 731-0) MONO x10^3 (test code 1.13 10*3/uL 0.33-0.92 H = 742-7) EOS x10^3 (test code = <0.03 0.03-0.39 L 711-2) BASO x10^3 (test code 0.04 10*3/uL 0.01-0.07 = 704-7) Lab Interpretation Abnormal (test code = 72454-4) [facility] IMMUNE [id number] 03:01:12 Test Item Value Reference Range Interpretation Comments RHIG CANDIDATE? No- see comment Patient i s not a (test code = candidate for R hIg- 5055) Patient is Rh Positive.Perfor med at [facility] Laboratory Services - [facility] Blood [address] [address]Xdjb Free: [phone] A No. [id number] [facility] Cord [id number] 00:09:00 Test Item Value Reference Range Interpretation Comments VENOUS BASE EXCESS, CORD mEq/L (test code = 3848838549) VENOUS PH, CORD (test 7.25-7.45 code = 8286636290) VENOUS PC02, CORD (test See_Comment H [Au tomated message] code = 1534973768) The syste m which generated this result transmitted ref erence range: 27 - 49 mmHg. The reference r elsi was not used to interpret this result as normal/abnor mal. VENOUS PO2, CORD (test See_Comment [Aut omated message] code = 5490305967) The syste m which generated this result transmitted ref erence range: 17 - 41 mmHg. The reference r elsi was not used to interpret this result as normal/abnor mal. VENOUS BICARBONATE, CORD See_Comment [A utomated message] (test code = 8769612229) The system which generated this result transmitted ref erence range: 12 - 29 mEq/L. The reference r elsi was not used to interpret this result as normal/abnor mal. Lab Interpretation (test Abnormal code = 66976-4) [facility] Cord [id number] 00:06:00 Test Item Value Reference Range Interpretation Comments BASE EXCESS, CORD mEq/L (test code = 2456098547) AC PH, CORD (BEAKER) 7.18-7.38 (test code = 7831803672) PC02, CORD (test code See_Comment [Auto mated message] The = 7199299066) system which g enerated this result transmit ling reference range : 32 - 66 mmHg. The refer ence range was not used to interpret this result as normal/abnormal . PO2, CORD (test code See_Comment [Autom ated message] The = 8418411160) system which g enerated this result transmit ling reference range : 10 - 30 mmHg. The refer ence range was not used to interpret this result as normal/abnormal . BICARBONATE, CORD See_Comment [Automate d message] The (test code = system which ge nerated this 9498554435) result transmit ling reference range : 17 - 27 mEq/L. The refe rence range was not used to interpret this result as normal/abnormal . [facility] CenterPANEL [id number] 19:06:46 ANTIBODY UOWmqd-MuiWges-P Comment: Performed at [facility] Laboratory Services - [facility] Blood [address] [place] [address]Toll Free: [phone] No. [id number] LABUnCH[facility] [place], [place]Type and Screen - ONCE STAT 2019-09-20 18:19:37 Test Item Value Reference Range Interpretation Comments ABO & RH (test code O POSITIVE Performe d at [facility] = 20) Laboratory Serv [facility] Blood [facility]3 [address] [facility] [address]Kvpt Free: [phone] A No. [id number] IAT (test code = Positive Performed a t [facility] 1185) Laboratory Serv [facility] Blood [facility]3 [address] [facility] [address]Aufl Free: [phone] A No. [id number] [facility] CenterUric Acid [id number] 18:12:00 Test Item Value Reference Range Interpretation Comments URIC ACID (test code = 4815637973) 5.5 mg/dL 2.9-6 Lab Interpretation (test code = Normal 35856-3) [facility] [id number] 18:12:00 Test Item Value Reference Range Interpretation Comments CREATININE (test code 0.58 mg/dL 0.5-1.04 = 1752385702) eGFR Calculation mL/min/1.73m2 (Non-) (test code = 9239667376) eGFR Calculation mL/min/1.73m2 () (test code = 5740139191) LUTHER (test code = LUTHER) Association of [...] or urine or abnormalities in imaging tests). [facility] Center[facility]OT (Asparate Amino Transfer)2019-09-20 18:12:00 Test Item Value Reference Range Interpretation Comments AST(SGOT) (test code = 3422447485) 22 U/L 13-40 Lab Interpretation (test code = Normal 53828-4) [facility] CenterAlanine Amino Transferase (SGPT)2019-09-20 18:12:00 Test Item Value Reference Range Interpretation Comments ALTv (test code = 1742-6) 20 U/L 5-35 Lab Interpretation (test code = Normal 17358-4) [facility] CenterLactate [id number] 18:07:00 Test Item Value Reference Range Interpretation Comments LDH (test code = 4728323862) 400 U/L 300-600 Lab Interpretation (test code = Normal 84401-3) [facility] CenterHepatitis B Surface [id number] 17:51:00 Test Item Value Reference Range Interpretation Comments HBsAg Semi-Quantitative (test code = Negative Negative 5195-3) [facility] CenterProtein CREAT Ratio Urine [id number] 17:03:00 Test Item Value Reference Range Interpretation Comments T. PROT U (test code = 2888-6) 12 mg/dL CREAT U (test code = 9440354785) 109.8 mg/dL Protein/Creatinine Ratio Urine 0.0-2.0 (test code = 1703137235) [facility] CenterUrinalysis2020-03-10 16:58:00 Test Item Value Reference Range Interpretation Comments APPEARANCE (test code = Hazy Clear A 4487132340) COLOR (test code = Yellow Yellow 3795685099) PH (test code = 4.8-8.0 4505528845) SP GRAVITY (test code = 1.003-1.030 6221116600) GLU U QUAL (test code = Normal Normal 8425388610) BLOOD (test code = Negative Negative 6851015150) KETONES (test code = Negative Negative 0903835507) PROTEIN (test code = Negative Negative 2887-8) UROBILIN (test code = Normal Normal 6760805646) BILIRUBIN (test code = Negative Negative 7787374032) NITRITE (test code = Negative Negative 5051976864) LEUK AURA (test code = Negative Negative 8053188055) RBC/HPF (test code = See_Comment [Autom ated message] 9540046622) The system [employer] generated this result transmitted ref erence range: 0 - 3 HP F. The reference range was not used to int erpret this result as normal/abnormal . WBC/HPF (test code = See_Comment [Autom ated message] 5110459486) The system [employer] generated this result transmitted ref erence range: 0 - 5 HP F. The reference range was not used to int erpret this result as normal/abnormal . BACTERIA (test code = Few Negative A 1851201770) MUCOUS (test code = Slight Negative LPF A 0268829289) SQ EPITH (test code = See_Comment H [Auto mated message] 4622437344) The system [employer] generated this result transmitted ref erence range: <=2 HPF. The reference range was not used to int erpret this result as normal/abnormal . Lab Interpretation (test Abnormal code = 45099-2) [facility] CenterCB WITH [id number] 16:53:00 Test Item Value Reference Range Interpretation [...] RDW-SD (test code = 43.2 fL 39-49.9 22196-7) RDW-CV (test code = 14.2 % 12-15.5 788-0) PLT (test code = See_Comment [Automated 777-3) message] The sy stem which generated this result transmitted reference range : 166 - 358 10*3/ ?L. The reference r elsi was not used to interpret this result as normal/abnormal . MPV (test code = 10.9 fL 9.5-12.9 34765-3) NRBC/100 WBC (test See_Comment [Automat ed code = 1627861858) message] The system which generated this result transmitted reference range : 0.0 - 10.0 /100 WBCs. The refer ence range was not u sed to interpret th is result as normal/abnormal . NRBC x10^3 (test code <0.01 See_Comment [Auto mated = 9069044719) message] The s ystem which generated this result transmitted reference range : 10*3/?L. The reference range was not used to interpret this result as normal/abnormal . GRAN MAT (NEUT) % 76.7 % (test code = 770-8) IMM GRAN % (test code 0.50 % = 6148107431) LYMPH % (test code = 14.3 % 736-9) MONO % (test code = 7.6 % 5905-5) EOS % (test code = 0.5 % 713-8) BASO % (test code = 0.4 % 706-2) GRAN MAT x10^3(ANC) 8.53 10*3/uL 1.88-7.09 H (test code = 2303970165) IMM GRAN x10^3 (test 0.06 10*3/uL 0-0.06 code = 6975458337) LYMPH x10^3 (test code 1.59 10*3/uL 1.32-3.29 = 731-0) MONO x10^3 (test code 0.84 10*3/uL 0.33-0.92 = 742-7) EOS x10^3 (test code = 0.05 10*3/uL 0.03-0.39 711-2) BASO x10^3 (test code 0.04 10*3/uL 0.01-0.07 = 704-7) Lab Interpretation Abnormal (test code = 29333-2) [facility] URINALYSIS W SPECIFIC [id number] 14:17:00 Test Item Value Reference Range Interpretation [...] POCT U APPEAR (test code = 3267) [facility] URINALYSIS W SPECIFIC [id number] 15:35:00 Test Item Value Reference Range Interpretation [...] POCT U APPEAR (test code = 3267) [facility] [id number] 14:27:00 Test Item Value Reference Range Interpretation [...] POCT U APPEAR (test code = 3267) [facility] [id number] 15:17:50 Test Item Value Reference Range Interpretation Comments TITERED AB (test Ab Titered: Fya Performe d at [facility] code = 1141) Laboratory Serv [facility] Blood [address] s [address]Ypqk Free: [phone] A No. [id number] AB TITER (test Antibody Titer: 4 Performe d at [facility] code = 247) Laboratory Serv [facility] Blood [address] s [address]Yrsn Free: [phone] A No. [id number] [facility]ITER [id number] 15:17:16 Test Item Value Reference Range Interpretation Comments TITERED AB (test Ab Titered: K Performed at [facility] code = 1141) Laboratory [facility] Blood [facility] [address] [facility] s [address]Rvzw Free: [phone] A No. [id number] AB TITER (test Antibody Titer: 8 Performe d at [facility] code = 247) Laboratory [facility] Blood [facility] [address] [facility] s [address]Xose Free: [phone] A No. [id number] [facility] CenterPANEL [id number] 13:49:50 ANTIBODY WBAepy-XhuSdnp-K Comment: Performed at [facility] Laboratory [facility] Blood [address] [place], [place] [address]Ocln Free: [phone] No. [id number] [facility] CenterPrenatal Workup, Blood Bank 2019-08-05 13:47:05 Test Item Value Reference Range Interpretation Comments ABO & RH (test code O POSITIVE Performe d at [facility] = 20) Laboratory [facility] Blood [facility]3 [address] [facility] s [address]Kxlo Free: [phone] A No. [id number] IAT (test code = Positive Performed a t [facility] 1185) Laboratory [facility] Blood [facility]3 [address] [facility] s [address]Cinu Free: [phone] A No. [id number] [facility] W/O SPECIFIC [id number] 15:38:00 Test Item Value Reference Range Interpretation [...] Negative Lab Interpretation (test code = Abnormal 11865-9) [facility] URINALYSIS W/O SPECIFIC [id number] 15:38:00 Test Item Value Reference Range Interpretation [...] Negative Lab Interpretation (test code = Abnormal 00921-9) [facility] URINALYSIS W/O SPECIFIC [id number] 15:38:00 Test Item Value Reference Range Interpretation [...] Negative Lab Interpretation (test code = Abnormal 36713-5) [facility] URINALYSIS W SPECIFIC [id number] 14:33:00 Test Item Value Reference Range Interpretation [...] POCT U APPEAR (test code = 3267) [facility]IFIC [id number] 14:33:00 Test Item Value Reference Range Interpretation [...] POCT U APPEAR (test code = 3267) [facility] TITER [id number] 11:17:08 Test Item Value Reference Range Interpretation Comments TITERED AB (test Ab Titered: Fya Performe d at [facility] code = 1141) Laboratory Serv [address] s [address]Bbuz Free: [phone] A No. [id number] AB TITER (test Antibody Titer: 8 Performe d at [facility] code = 247) Laboratory Serv [facility] Blood [address] s [address]Vvam Free: [phone] A No. [id number] [facility] CenterANTIB[facility] TITER [id number] 11:17:08 Test Item Value Reference Range Interpretation Comments TITERED AB (test Ab Titered: Fya Performe d at [facility] code = 1141) Laboratory Serv [facility] Blood [address] s [address]Nyvg Free: [phone] A No. [id number] AB TITER (test Antibody Titer: 8 Performe d at [facility] code = 247) Laboratory [address] s [address]Dlye Free: [phone] A No. [id number] [facility] CenterANTIB[facility] TITER [id number] 11:16:14 Test Item Value Reference Range Interpretation Comments TITERED AB (test Ab Titered: K Performed at [facility] code = 1141) Laboratory [address] [address]Ropg Free: [phone] A No. [id number] AB TITER (test Antibody Titer: 4 Performe d at [facility] code = 247) Laboratory [address] s [address]Juys Free: [phone] A No. [id number] [facility] CenterANTIB[facility] TITER [id number] 11:16:14 Test Item Value Reference Range Interpretation Comments TITERED AB (test Ab Titered: K Performed at [facility] code = 1141) Laboratory [address] [address]Aike Free: [phone] A No. [id number] AB TITER (test Antibody Titer: 4 Performe d at [facility] code = 247) Laboratory [address] s [address]Tzrq Free: [phone] A No. [id number] [facility] [id number] 11:16:13 ANTIBODY RAVuvh-EvqUgvk-Q Comment: Performed at [facility] Laboratory Services - [facility] Blood [place] [address]Toll Free: [phone] No. [id number] [facility] IDENT[facility]ICATION 2019-02-25 11:16:13ANTIBODY SGKroi-XyiFihe-R Comment: Performed at [facility] Laboratory [facility] - [facility] Blood [address] [place], [place] [address]Ypqa Free: [phone] No. [id number] [facility]LOOD [id number] 07:33:42 Test Item Value Reference Range Interpretation Comments ABO & RH (test code O Positive Performe d at [facility] = 20) Laboratory Serv [facility] Blood Bank3 [address] [facility] [address]Isqr Free: [phone] A No. [id number] IAT (test code = Positive Performed a t [facility] 1185) Laboratory [facility] Blood [facility]3 [address] [facility] [address]Dyuc Free: [phone] A No. [id number] [facility], BLOOD [id number] 07:33:42 Test Item Value Reference Range Interpretation Comments ABO & RH (test code O Positive Performe d at [facility] = 20) Laboratory [facility] Blood [facility]3 [address] [facility] [address]Vlwv Free: [phone] A No. [id number] IAT (test code = Positive Performed a t [facility] 1185) Laboratory [facility] Blood [facility]3 [address] [place] [address]Nnda Free: [phone] A No. [id number] [facility] CenterPO[facility] W SPECIFIC [id number] 15:07:00 Test Item Value Reference Range Interpretation [...] POCT U APPEAR (test code = 3267) [facility] URINALYSIS W SPECIFIC [id number] 15:07:00 Test Item Value Reference Range Interpretation [...] POCT U APPEAR (test code = 3267) [facility] URINALYSIS W SPECIFIC [id number] 15:07:00 Test Item Value Reference Range Interpretation [...] POCT U APPEAR (test code = 3267) [facility] PAP SMEAR-LIQUID [id number] 15:19:00 Test Item Value Reference Range Interpretation Comments Case Report (test code Gynecologic = 4779560859) Cytology?Case: [id number]? Authorizing Provider:?Lindy Godwin,?Collected:? 01/26/2019 1135??? CNP?Ordering Location:? [facility]? Received:?01/26/2019 2341?? [place]? First Screen:?Dennise Munroe? Specimen:?Liquid Based Pap Preparation, CERVIX? Clinical Information routine (test code = 5345951228) Specimen Adequacy Satisfactory for (test code = 93509-0) Evaluation(Endocervical /Transformation Zone Component Absent) Interpretation (test Negative for code = 14801-9) intraepithelial lesion or malignancy Other Findings (test Shift In Blossom code = 4223120705) Suggestive Of Bacterial Vaginosis Comments (test code = q8ucuLKwMWGwpYHhGqEdZUC 2015480094) lBMGnn0pgKUGcxAWzJoBoPu NcZnRuYmpcdWMxXGRlZmYwe 5xzj277zYFks4utSZNkDoV1 dTUcKJSzvWYxS663KOJfGMs yn8ryr9EkTUNldOPxe0G0EH DVFYgkBzJtT119o2dch1rzg uSwzSF2RMMiIFHeJ8CrGR6i UVZxxQEcUYyetmAoUlC6JGf fGXVlQoS1TBOhgPJnJYNbS0 19FIL8qHyye8krCMD1LDVgN GHmTsRrCq5elOYyQ858SRGc JBITEPHgwHt5TBMgjeSdmkE auMFBv890X513f4drNNWsje PfdJvZmnxxz9kqF624EPJol GVydzEyMjQwXHBhcGVyaDE1 TCIqJW3jtaoyKYW3FKlbUJN rtgUtQVRvcKUmE0Z7LjYysN ZeD5DmXDbvLYGspge5SvKeL r7ftVIoiDB9KPfcn6ovt0fb nPKnDxb8GVFtOhXjXqojUCp jm8Uby8voVEIbvq8hWKY1zN LotOxwx1H6fVJmLATrbEBvi sCcVVAkFbN3THmnPP2tas68 ZEXtZPW9it2oePEniGxynwH bgFPjZDbgM5ZcUSLtl516KM OaW0LbWTPjl4Z4wqTxMhTfR CHfcDP0imH5BQVsPXt8pXAs egS2mcQheDVtW2ruiE8aHKp fYA3yeojnr8drDEP0LEplIK TklKD7exmoQTscEWEhZyC8o cMlxQYiVWSgvLbaZVvrq397 VQF7BlYyYDEgs5JyQ8AlnLj kV86qeEyjU17jJQIwhUwdiT 1yuRctwS0lCyJxUrAxFAuxY XJkXHBsYWluXGYwXGZzMjBc mGhiyR2kCsTlQqLfIjxtXA3 rWPKbX6pcrDXzXOItEOFnZ9 ceLkTsxB2mhFybKRzzOaMtJ vTpNxnsZEVdagUioj8aOMTi ovEwwkWsmYBuIFDeQwhqQ0y 5v1KcQ1has3doI5hggGAviJ pccGFyIFVuaXZlcnNpdHkgb 3VuEXW0AOWpSHZeeUXhqXUD meMaV8wzUKWsd3KmsP7jkQD DERH4vMLtphVvMUngLAe4UQ CJuOK1UMSufYX5c1ffZAAxB lB8VMOOqYmkCSHaBUH1BXof Z427eEmeaTDkMGXtOSGxCTd hBQCqATBmJgVxrIaguV6qWs YgIxMpEtceJO8oVUQnV1lgp MVrVBLhLFAsH9pkJeXobP4s aFxmMVxjZjFcZnMxNlxpIEx aBOk6RMPTgFJ0NLBUIWI9Rf V7E7kpiWIbukztVWvuivDcW HBhclxwYXJ9 LMP (test code = 7756010724) Educational Note (test q1bzfXHoKOSsg4pzGACkoYD code = 5801666195) uZzEwMzNcZnRuYmpcdWMxIH mlooXfJKdkk0ScS4JhRNWzS FxhbnNpXGRlZmxhbmcxMDMz DXY6zsChLMSuIMtiIHLcVEq rUr4utCCgeOgkIiYfUDBzh1 cauuEOfhvswVw5r3ngTFZiO iS5eUBkRVazJ6lujdLxtTEm EGLoGQm7yK16HYXbvL6dnAJ wLKhxyzIsKoP4BXqtJSDzSo P5QMRsxYQdTGHdO6xkTSLpB UFuE8YvIG5lNqkxGbb8SYM9 IDtccmVkMFxncmVlbjBcYmx 0YWUgH388EFC6lRmda5ikOQ B8SWJzGYIoKePlOg7chAPsY 141KFDsPYAIKZTrlKt3UVHj mgQxcyZyyFBNw665I341r5t oCUMhjgPsxRtAjkqnu7tzP9 19XHBhcGVydzEyMjQwXHBhc HGczIL0ZYMyTC4lnitqXJhg VBkmWJLwxtC4JMJyeSBzL3Q iSUMxOQ1wbagiIHA4KJlnCT AfJEU2ZiMdZQXru7Fjnom2E rVdco0ymx05MPU7h8UnpSyq IGF6EZX3EoFhQh1vrJUeBGQ nIY9oTcUvgRIbLXDblt45cU upNZvtgkHqyW9oCkCiEIPej BQvNYZkII0oeJClXAXcoE5q cmxjXHBnYnJkcmhlYWRccGd vsfRtUc2klMriZJF5CTteO4 tgpN3lHhX9RGzfH1ojtM0lR Kn9XKgraHW9OJVxlK6oOA5m bfohm4gkJWafRUyvJXQncqF 1kwA6BDVhgJEeN9TkaP5vOB KaGT4fyobca1rkSDJ3YTykX HEnJPA4SmRcIWAah5Dperv8 JgNhv3GyjZNeRIlhH39so31 5TECisaPdZ0ijcGThqcywgE BowllqWVzgyjQ4YSSnWROcW WluXGYxXGZzMjJcbGFuZzEw MzNcaGljaFxmMVxkYmNoXGY lVOfiP5qwXvCgA2PbFKFvMs IjzCGQSNQ3uBJkwMAklFWln H9dpOCdRRYgOWQvd3DjABue SBCbj8OmIZVzaU1yKAAjx6T jgWGviYCbfQx0KOMyizCtiL JqpG75fhMxUM3sSKSgCEPjH TZtboLwuEDxw0WlAxDNmNFd jVAjaEDtCSXyCR9nxR2qJQR henDfQVH4zEJcc3toMYRll4 LfNsrnmIQ2EQ9lTUBabWBmT U1tL9A2sSXcMVZbHKQvILij JF4ct4MejEz1GPBfJEJ7oMI tWkCxUaTisMpjdiPiLN3seH ufHdNswnTuOf7jtH66SJUqQ V0qCFOaCOsiiRDvpqCaXQYy jX9cX2FpLHMbO45cGKKlKUA bvE5fyR2wctEdqwOijqNml9 0zWG1dVMHghQ7cjKkgzS9qm mUgdGhlIGVmZmVjdCBvZiBm XBgqKUDfSOumjEe8LWYyONQ 1iVLjRtZuKA78paDvEHKkUA 90YWPmk9NkTROiLNTlPT3bt qVeHPO2aqDru30zjVf0XGzd oWPrlQ9mVPbemQNajZPfFpH qbZDaNUjmZDLeJF1rGJQaYV 55IHVuZXhwbGFpbmVkIGNsa I6fU7UvRWSjE25oQZEdWXYy kZ0krH3shboqjuZhAACqkGR zcyBvZiBhbnkgUGFwIFRlc3 HyolAgfTw7VrvqgLDbnqbnZ VxmczIyXGxhbmcxMDMzXGhp J0fnDjSiCFVawYqjWQwoo8X oXGYxXGZzMjJccGFyfX0= Embedded Images (test code = 2765097593) [facility] ONLY PAP SMEAR-LIQUID [id number] 15:19:00 Test Item Value Reference Range Interpretation Comments Case Report (test code Gynecologic = 8222520391) Cytology?Case: [id number]? Authorizing Provider:?Lindy Godwin,?Collected:? 01/26/2019 1135?? [facility]?Ordering Location:? [facility]-? Received:?01/26/2019 2341?? [place]? First Screen:?Dennise Munroe? Specimen:?Liquid Based Pap Preparation, CERVIX? Clinical Information routine (test code = 1761825187) Specimen Adequacy Satisfactory for (test code = 65602-2) Evaluation(Endocervical /Transformation Zone Component Absent) Interpretation (test Negative for code = 43171-9) intraepithelial lesion or malignancy Other Findings (test Shift In Blossom code = 7992228996) Suggestive Of Bacterial Vaginosis Comments (test code = b5ntyQAiEEIemPGnVlMcQUE 2533803402) mHEMrg0fvARYnuDVlVfDyFr NcZnRuYmpcdWMxXGRlZmYwe 1ccm187fCTud6jbZSOdFxD7 gUYcXUCabAHxO684XAIxVIh vo2wna1CbTVQnfGPsf9V0XO VCLQcgKfYaZ816r1yxz8twi vQqvTY1HGOmDELaN0DyAG3r GQFufXKkHDvgqvNyWtV0ABv eMCDuEnO4LASmdFVuXGOwV8 58CJW2nFoxz2cdDDW9AUDmZ LOmOsSoXz2jcKSwK504QSYq JGRZGGGjmQn1LRSwyvSuslG viMQAz382S167e3atDPMcqk LimGwCobwwp7unG511JMKbm GVydzEyMjQwXHBhcGVyaDE1 BSJlZR1dimhvPZB8QJipLTM bhoVyXWAksVDsD1C7IiCerO IyF6QzOXobEZSkhtl3TrAcA c1pvIFqsXK4WDnso9igm4te nOPqZic5RGEbRxDhZutuNAm tx0Hpy8baSFMrqc2wJCT1cP FndBkam9F9wRCyVWDokGFdo xDwAXMlIaY9KCipHZ0gix15 RDOeJDE8xy7ydNVhxMsttjM eqYJrDNelV5FhDXHei976BI LsU2HoNAGob2J4lpPsWcQaZ HAptMV7pnI0QWAxXZj9qHEv svS8rgTnsIYuV1hnpQ0sBJn qSB5omhinp7aqLDW7FUqqAU OtyXK9ovuzSJvcIDFbPeT3m oXbqAVeTHQrkLskAEznj360 CIX4PkDnVEOgc5EbI4YipRo dG10vnSvvO19nQEWmmIqhcC 2pdTaqxI9dCePpVtIzDUrfY XJkXHBsYWluXGYwXGZzMjBc mCezeF2gJhTzUbVxMjasMF9 xMJVlL3oplCPfTJDsWEImF7 ziPxZcvA3pxGanQZizBtHfU sGkHrvcZFSyiyLump7vQCWa pvNgkcQvmCGlYMMeDkabY7z 0c0RhW5kzu8jwQ1ndaICedD pccGFyIFVuaXZlcnNpdHkgb 3EhZPU0GUHoPMVllBJuzOFY dnAyP2vdUVSgj3YyzD9xqAG AFTQ4aQVcliPuUQsgEGw8JH HIrAO7PVFfdVY7f9jwIDAjW qQ6PARUdKjgJBIkZAE1VWgq F424pExziQTmOFPzBFAzXKb eRNQtEXEnQlBxcVskmF2tYe TdQqSoPytgQQ1cNJZyV7zzy FLoKOIpXDJzP4qiYdXjqT5o aFxmMVxjZjFcZnMxNlxpIEx gLZa4KPQHdEA0ELATTRG3Or P0C9bjxGArimmtLSyxsnNeT HBhclxwYXJ9 LMP (test code = 5953545458) Educational Note (test t0mypZCeWXEml9qwVTUhdFY code = 1575641600) uZzEwMzNcZnRuYmpcdWMxIH ffyxNlDUyuk5NlZ6ZfYWVnJ FxhbnNpXGRlZmxhbmcxMDMz CYY1dwPaZBYuPIvzNQRnZOs wAm2mhVVjiOdqZmVdSEXbl6 zgucGQsgvvgZm3a9smOPTfS zW0mVSzQNbxE0tmmgTvrXWo ISWaXVy2iV17RLEpjZ7byMB bKVespgZpOdX0UFepSWSzMz H5LBNjrCOlDVFtJ6blZWAwL NNkP9EsQO9eAxdiDxy7AQR0 IDtccmVkMFxncmVlbjBcYmx 7IXYjK020KCI1pYdwi7qkPU C0OFOpCPOrMfInOe6mnBBbW 807ZSQnSPORHGBtgLy9MZBj knOcmgFhbTSQv352J227s1v dACQfuoBpdSiBahhqz4rcL3 19XHBhcGVydzEyMjQwXHBhc NBsnXT4VAQdXO0qypnwEPwo DCrqRHYlexF1WGIyaHYkO1C xLECmVW5xrvktEYO1KYkpHI XxQUL1KrZlNQPes6Qvbpq0G eYelp4bzp26KAH6q7IkjFfr HMB9BGM1GvYyZf4yjEJjXFL sTB6kEzJttIWeVQQoln51yX nkCPwlrmEbkI7eCpUuELYfj GGzLEVkPM2amXTaIFDrlA7x cmxjXHBnYnJkcmhlYWRccGd uugItUc5giVztDNO8PTxgY7 behP0bVrH4KDkyB2knmN7wO Pe8QOkifWW8FNRusQ3zRE3f bgofx9gjWKaoWZutJTBwolP 6kbU2RCVdzHEbN8HcgY4yKH AmDC6sslwcd3rnVBS3SMqpV XNtDQL6IcRoVHDmx8Umfyi6 ZoJgs4FlfORuJBfzD65oz09 7NYCdaxKaL8keqALzrzshyY IbpfyvCRmhrwJ4UVRsTRZwL WluXGYxXGZzMjJcbGFuZzEw MzNcaGljaFxmMVxkYmNoXGY zBSaoZ8cxRsLtK0WzNFZnNq JviQYOWYW9pMVisSVicSZvx I2ovRWgGSYqNXLdx8BoLCcy AHZig2NfWUEwwB5aSHTwr3L zqSZupWQjnBz6PHVlmkFniM ZqeT32baPmYY3xERJxOWTeU QLlgtHrsWCsk1QjGvNJxLRn pOZkdCZvPWGaZL8dsJ6iBMK agzAjTEF6rHCuo1jzZKXgb2 PaGsnhaMJ0TF3jIKTgiTZvT T3rA0K8dQHxDGJiPCCfONey DQ3cn2FbrVb8WATkKJJ4fJO wToJfWzBgcVbizjVsKE9apR lfHmVdbtDuMj4lmU18KLPlU V7rYEIvUJrooVBxexZjXHJe uU7nY2LjSUTdG14bCVPdZZG fmT5okE5zpzAqtjGnlwTfd1 4hFK4hNORllY0ktTneoC1tx mUgdGhlIGVmZmVjdCBvZiBm LWuqMBOlMJvufIg7LTHdFWY 2aVPxIuTvTS36bgHzEDOsJK 58VCCze3WxBVHsNJZzUJ7wk fMdAEO0cdYmn26sbQn3IOtp yWOgwE0hPTnxiTOpgRMpNzW hrMLhPYjtARXcWA6cEKNyJH 55IHVuZXhwbGFpbmVkIGNsa V4hI2ApWYUnH67lFPEeFQQn lH1nhZ7druyrnxGhWLRbuOB zcyBvZiBhbnkgUGFwIFRlc3 CaxeKrqVf7OvpcnJTbkuspX VxmczIyXGxhbmcxMDMzXGhp M1clNvZxQTDpfCspLVdxk3Z oXGYxXGZzMjJccGFyfX0= Embedded Images (test code = 6007013901) [facility] [id number] 12:23:00 Test Item Value Reference Range Interpretation Comments URINE CULTURE (test > 100,000 CFU/mL mixed code = 630-4) aerobic organisms - suggests endogenous microbial contamination [facility] [id number] 12:23:00 Test Item Value Reference Range Interpretation Comments URINE CULTURE (test > 100,000 CFU/mL mixed code = 630-4) aerobic organisms - suggests endogenous microbial contamination [facility] CHLAMYDIA AMPLIFIED [id number] 23:43:00 Test Item Value Reference Range Interpretation Comments Lab Interpretation (test code = Normal 29115-9) [facility] CHLAMYDIA AMPLIFIED [id number] 23:43:00 Test Item Value Reference Range Interpretation Comments Lab Interpretation (test code = Normal 06213-7) [facility] CenterRUBELLA SCREEN (ROASURA) [id number] 16:17:00 Test Item Value Reference Range Interpretation Comments Rubella screen IgG Positive Negative (test code = 7939768177) LUTHER (test code = LUTHER) Positive - Indicates the patient was exposed to Rubella through infection or vaccination.Negative - Indicates the patient could be susceptible to Rubella infection.Equivocal - A second specimen should be sent. [facility]TIBODY [id number] 16:17:00 Test Item Value Reference Range Interpretation Comments VZV IgG antibody Positive Negative (test code = 58528-0) LUTHER (test code = LUTHER) Positive - Indicates the patient was exposed to VZV through infection or vaccination.Negative - Indicates the patient could be susceptible to VZV infection.Equivocal - A second specimen should be sent for testing. [facility] CenterRU[facility]LLA SCREEN (ROSAURA) [id number] 16:17:00 Test Item Value Reference Range Interpretation Comments Rubella screen IgG Positive Negative (test code = 1587855957) LUTHER (test code = LUTHER) Positive - Indicates the patient was exposed to Rubella through infection or vaccination.Negative - Indicates the patient could be susceptible to Rubella infection.Equivocal - A second specimen should be sent. [facility] SystemsZ[facility] ANTIBODY [id number] 16:17:00 Test Item Value Reference Range Interpretation Comments VZV IgG antibody Positive Negative (test code = 50951-5) LUTHER (test code = LUTHER) Positive - Indicates the patient was exposed to VZV through infection or vaccination.Negative - Indicates the patient could be susceptible to VZV infection.Equivocal - A second specimen should be sent for testing. [facility] [id number] 14:51:00 Test Item Value Reference Range Interpretation Comments Syphilis IgG/IgM (test Non-reactive Non-reactive code = 08598-5) LUTHER (test code = LUTHER) Non-reactive - No serologic evidence of T. pallidum infection. Cannot exclude incubating or early syphilis. Submit a second specimen in 2-4 weeks if syphilis is clinically suspected.Equivocal - Further testing to follow.Reactive - Further testing to follow. Lab Interpretation (test Normal code = 91848-9) [facility] [id number] 14:51:00 Test Item Value Reference Range Interpretation Comments Syphilis IgG/IgM (test Non-reactive Non-reactive code = 36755-6) LUTHER (test code = LUTHER) Non-reactive - No serologic evidence of T. pallidum infection. Cannot exclude incubating or early syphilis. Submit a second specimen in 2-4 weeks if syphilis is clinically suspected.Equivocal - Further testing to follow.Reactive - Further testing to follow. Lab Interpretation (test Normal code = 10769-0) [facility] TITER [id number] 11:22:09 Test Item Value Reference Range Interpretation Comments TITERED AB (test Ab Titered: Fya Performe d at [facility] code = 1141) Laboratory [facility] Blood [address] [place] [id number] Free: [phone] A No. [id number] AB TITER (test Antibody Titer: <1 Perform ed at [facility] code = 247) Laboratory [facility] Blood [address] [place] [address]Jdli Free: [phone] A No. [id number] [facility] TITER [id number] 11:22:09 Test Item Value Reference Range Interpretation Comments TITERED AB (test Ab Titered: Fya Performe d at [facility] code = 1141) Laboratory [facility] Blood [address] [place] [address]Ezel Free: [phone] A No. [id number] AB TITER (test Antibody Titer: <1 Perform ed at [facility] code = 247) Laboratory [facility] Blood [address] s [address]Kjup Free: [phone] A No. [id number] [facility] TITER [id number] 11:22:06 Test Item Value Reference Range Interpretation Comments TITERED AB (test Ab Titered: K Performed at [facility] code = 1141) Laboratory [facility] Blood [address] [place] [address]Ravu Free: [phone] A No. [id number] AB TITER (test Antibody Titer: <1 Perform ed at [facility] code = 247) Laboratory [facility] Blood [address] s [address]Lyoy Free: [phone] A No. [id number] [facility] TITER [id number] 11:22:06 Test Item Value Reference Range Interpretation Comments TITERED AB (test Ab Titered: K Performed at [facility] code = 1141) Laboratory [address] s [address]Rgnn Free: [phone] A No. [id number] AB TITER (test Antibody Titer: <1 Perform ed at [facility] code = 247) Laboratory [address] s [address]Kqgi Free: [phone] A No. [id number] [facility] [id number] 10:41:26 ANTIBODY LLSqjt-JrnPhlt-O Comment: Performed at [address] [address]Cujp Free: [phone] No. [id number] [facility] IDENT[facility]ICATION 2019-01-27 10:41:26ANTIBODY OYLgrl-YsmClxl-D Comment: Performed at [address] [address]Dujg Free: [phone] No. [id number] [facility] [id number] 10:41:26ANTIBODY QDKlwf-KwlOqhe-W Comment: Performed at [place] [address], [place], [place] [address]Icrf Free: [phone] No. [id number] [facility] CenterPANEL [id number] 10:41:26ANTIBODY STHhyp-UyeIjkn-F Comment: Performed at [facility] Laboratory Services - [facility] Blood [address] [place] [address]dqo Free: [phone] No. [id number] [facility] CenterHCV [id number] 09:46:00 Test Item Value Reference Range Interpretation Comments HCV Semi-Quantitative (test code = 10846-4) [facility] AG-AB WITH [id number] 09:46:00 Test Item Value Reference Range Interpretation Comments HIV Negative Negative Semi-quantitative (test code = 07179-3) LUTHER (test code = Non-reactive for HIV-1 LUTHER) antigen and HIV-1/HIV-2 antibodies.?No laboratory evidence of HIV infection.?Repeat in 2-4 weeks if acute HIV infection is suspected. [facility] [id number] 09:46:00 Test Item Value Reference Range Interpretation Comments HCV Semi-Quantitative (test code = 86733-8) [facility] AG-AB WITH [id number] 09:46:00 Test Item Value Reference Range Interpretation Comments HIV Negative Negative Semi-quantitative (test code = 44910-1) LUTHER (test code = Non-reactive for HIV-1 LUTHER) antigen and HIV-1/HIV-2 antibodies.?No laboratory evidence of HIV infection.?Repeat in 2-4 weeks if acute HIV infection is suspected. [facility] CenterANTIGEN TYPING [id number] 09:35:20 Test Item Value Reference Range Interpretation Comments ANTIGEN ID (test Leb Antigen Performed a t [facility] code = 1687) Negative Laboratory Serv [address] s [id number] Free: [phone] A No. [id number] ANTIGEN ID (test M Antigen Positive Perfo rmed at [facility] code = 62) Laboratory Serv [facility] Blood [address] s [id number] Free: [phone] A No. [id number] ANTIGEN ID (test N Antigen Negative Perfo rmed at [facility] code = 63) Laboratory [facility] Blood [address] s [id number] Free: [phone] A No. [id number] ANTIGEN ID (test Tg Antigen Performed a t [facility] code = 64) Positive Laboratory [facility] Blood [address] s [address]Vxlc Free: [phone] A No. [id number] ANTIGEN ID (test Fya Antigen Performed a t [facility] code = 1688) Negative Laboratory [address] s [id number] Free: [phone] A No. [id number] [facility] [id number] 09:35:20 Test Item Value Reference Range Interpretation Comments ANTIGEN ID (test Leb Antigen Performed a t [facility] code = 1687) Negative Laboratory [facility] Blood [address] s [id number] Free: [phone] A No. [id number] ANTIGEN ID (test M Antigen Positive Perfo rmed at [facility] code = 62) Laboratory [facility] Blood [address] s [address]Hbwu Free: [phone] A No. [id number] ANTIGEN ID (test N Antigen Negative Perfo rmed at [facility] code = 63) Laboratory [facility] Blood [address] s [address]Bppi Free: [phone] A No. [id number] ANTIGEN ID (test Tg Antigen Performed a t [facility] code = 64) Positive Laboratory [facility] Blood [address] s [address]Baix Free: [phone] A No. [id number] ANTIGEN ID (test Fya Antigen Performed a t [facility] code = 1688) Negative Laboratory [facility] Blood [address] s [address]Pogc Free: [phone] A No. [id number] [facility] B SURFACE [id number] 09:30:00 Test Item Value Reference Range Interpretation Comments HBsAg Semi-Quantitative (test code = 5195-3) [facility] B SURFACE [id number] 09:30:00 Test Item Value Reference Range Interpretation Comments HBsAg Semi-Quantitative (test code = 5195-3) [facility] [id number] 08:58:34 Test Item Value Reference Range Interpretation Comments ANTIGEN ID (test Fyb Antigen Performed a t [facility] code = 1687) Positive Laboratory [address] [address]Nguo Free: [phone] A No. [id number] [facility] [id number] 08:58:34 Test Item Value Reference Range Interpretation Comments ANTIGEN ID (test Fyb Antigen Performed a t [facility] code = 1687) Positive Laboratory [address] s [id number] Free: [phone] A No. [id number] [facility] [id number] 08:49:20 Test Item Value Reference Range Interpretation Comments ANTIGEN ID (test Jkb Antigen Performed a t [facility] code = 1687) Positive Laboratory [facility] Blood [address] s [id number] Free: [phone] A No. [id number] ANTIGEN ID (test P1 Antigen Performed a t [facility] code = 62) Positive Laboratory [facility] Blood [address] s [address]Wbta Free: [phone] A No. [id number] ANTIGEN ID (test S Antigen Negative Perfo rmed at [facility] code = 63) Laboratory Serv ices - [facility] Blood [address] s [id number] Free: [phone] A No. [id number] ANTIGEN ID (test s Antigen Positive Perfo rmed at [facility] code = 64) Laboratory [facility] Blood [address] s [id number] Free: [phone] A No. [id number] ANTIGEN ID (test e Antigen Positive Perfo rmed at [facility] code = 1688) Laboratory [facility] Blood [address] s [id number] Free: [phone] A No. [id number] [facility] [id number] 08:49:20 Test Item Value Reference Range Interpretation Comments ANTIGEN ID (test Jkb Antigen Performed a t [facility] code = 1687) Positive Laboratory [facility] Blood [address] s [address]Nrov Free: [phone] A No. [id number] ANTIGEN ID (test P1 Antigen Performed a t [facility] code = 62) Positive Laboratory [facility] Blood [address] s [id number] Free: [phone] A No. [id number] ANTIGEN ID (test S Antigen Negative Perfo rmed at [facility] code = 63) Laboratory [facility] Blood [address] s [id number] Free: [phone] A No. [id number] ANTIGEN ID (test s Antigen Positive Perfo rmed at [facility] code = 64) Laboratory [facility] Blood [address] s [address]Mvfm Free: [phone] A No. [id number] ANTIGEN ID (test e Antigen Positive Perfo rmed at [facility] code = 1688) Laboratory [facility] Blood [address] s [address]Xflu Free: [phone] A No. [id number] [facility] [id number] 08:32:43 Test Item Value Reference Range Interpretation Comments ANTIGEN ID (test C Antigen Positive Perfo rmed at [facility] code = 1687) Laboratory [address] [address]Iouj Free: [phone] A No. [id number] ANTIGEN ID (test c Antigen Positive Perfo rmed at [facility] code = 62) Laboratory [address] [address]Jtqk Free: [phone] A No. [id number] ANTIGEN ID (test E Antigen Positive Perfo rmed at [facility] code = 63) Laboratory [address] [address]Fygq Free: [phone] A No. [id number] ANTIGEN ID (test K Antigen Negative Perfo rmed at [facility] code = 64) Laboratory [address] [address]Amhy Free: [phone] A No. [id number] ANTIGEN ID (test Jka Antigen Performed a t [facility] code = 1688) Positive Laboratory [address] [address]Bzns Free: [phone] A No. [id number] [facility] [id number] 08:32:43 Test Item Value Reference Range Interpretation Comments ANTIGEN ID (test C Antigen Positive Perfo rmed at [facility] code = 1687) Laboratory [address] [address]Fryg Free: [phone] A No. [id number] ANTIGEN ID (test c Antigen Positive Perfo rmed at [facility] code = 62) Laboratory [address] [address]Hjtd Free: [phone] A No. [id number] ANTIGEN ID (test E Antigen Positive Perfo rmed at [facility] code = 63) Laboratory [facility] Blood Ban [address] s [address]Pxxc Free: [phone] A No. [id number] ANTIGEN ID (test K Antigen Negative Perfo rmed at [facility] code = 64) Laboratory [facility] Blood [address] [address]Aama Free: [phone] A No. [id number] ANTIGEN ID (test Jka Antigen Performed a t [facility] code = 1688) Positive Laboratory [facility] Blood [address] [address]Znzt Free: [phone] A No. [id number] [facility] acute hospital WORKUP, BLOOD [id number] 07:33:05 Test Item Value Reference Range Interpretation Comments ABO & RH (test code O POSITIVE Performe d at [facility] = 20) Laboratory [facility] Blood [facility] [place] [address]Adyc Free: [phone] A No. [id number] IAT (test code = Positive Performed a t [facility] 1185) Laboratory [facility] Blood [facility] [address] [place] [address]Ifdt Free: [phone] A No. [id number] [facility] acute hospital WORKUP, BLOOD [id number] 07:33:05 Test Item Value Reference Range Interpretation Comments ABO & RH (test code O POSITIVE Performe d at [facility] = 20) Laboratory [facility] Blood Bank[address] [place] [address]Sleb Free: [phone] A No. [id number] IAT (test code = Positive Performed a t [facility] 1185) Laboratory [facility] Blood Bank[address] [place] [address]Xixk Free: [phone] A No. [id number] [facility] [id number] 04:06:00 Test Item Value Reference Range Interpretation Comments GLUC 1 HR (test code = 0376657991) 116 mg/dL 120-170 L Lab Interpretation (test code = Abnormal 33458-7) [facility] [id number] 04:06:00 Test Item Value Reference Range Interpretation Comments GLUC 1 HR (test code = 0099167031) 116 mg/dL 120-170 L Lab Interpretation (test code = Abnormal 97885-5) [facility] WITH [id number] 03:24:00 Test Item Value Reference Range Interpretation [...] RDW-SD (test code = 41.0 fL 39-49.9 76332-8) RDW-CV (test code = 13.2 % 12-15.5 788-0) PLT (test code = See_Comment [Automated 777-3) message] The sy stem which generated this result transmitted reference range : 166 - 358 10*3/ ?L. The reference r elsi was not used to interpret this result as normal/abnormal . MPV (test code = 9.9 fL 9.5-12.9 81412-9) NRBC/100 WBC (test See_Comment [Automat ed code = 1265843041) message] The system which generated this result transmitted reference range : 0.0 - 10.0 /100 WBCs. The refer ence range was not u sed to interpret th is result as normal/abnormal . NRBC x10^3 (test code <0.01 See_Comment [Auto mated = 4425998990) message] The s ystem which generated this result transmitted reference range : 10*3/?L. The reference range was not used to interpret this result as normal/abnormal . GRAN MAT (NEUT) % 73.4 % (test code = 770-8) IMM GRAN % (test code 0.50 % = 8244930817) LYMPH % (test code = 18.3 % 736-9) MONO % (test code = 6.2 % 5905-5) EOS % (test code = 1.1 % 713-8) BASO % (test code = 0.5 % 706-2) GRAN MAT x10^3(ANC) 6.12 10*3/uL 1.88-7.09 (test code = 7656484584) IMM GRAN x10^3 (test 0.04 10*3/uL 0-0.06 code = 0067594305) LYMPH x10^3 (test code 1.53 10*3/uL 1.32-3.29 = 731-0) MONO x10^3 (test code 0.52 10*3/uL 0.33-0.92 = 742-7) EOS x10^3 (test code = 0.09 10*3/uL 0.03-0.39 711-2) BASO x10^3 (test code 0.04 10*3/uL 0.01-0.07 = 704-7) Lab Interpretation Abnormal (test code = 66864-4) [facility] WITH [id number] 03:24:00 Test Item Value Reference Range Interpretation Comments WBC (test code = See_Comment [Automated 5390-2) message] The sy stem which generated this result transmitted reference range : 4.30 - 11.10 10*3/?L. The reference range was not used to interpret this result as normal/abnormal . RBC (test code = See_Comment H [Automated 999-8) message] The sy stem which generated this [...] RDW-SD (test code = 41.0 fL 39-49.9 30311-9) RDW-CV (test code = 13.2 % 12-15.5 788-0) PLT (test code = See_Comment [Automated 777-3) message] The sy stem which generated this result transmitted reference range : 166 - 358 10*3/ ?L. The reference r elsi was not used to interpret this result as normal/abnormal . MPV (test code = 9.9 fL 9.5-12.9 60248-2) NRBC/100 WBC (test See_Comment [Automat ed code = 4085744755) message] The system which generated this result transmitted reference range : 0.0 - 10.0 /100 WBCs. The refer ence range was not u sed to interpret th is result as normal/abnormal . NRBC x10^3 (test code <0.01 See_Comment [Auto mated = 2676336034) message] The s ystem which generated this result transmitted reference range : 10*3/?L. The reference range was not used to interpret this result as normal/abnormal . GRAN MAT (NEUT) % 73.4 % (test code = 770-8) IMM GRAN % (test code 0.50 % = 5195520936) LYMPH % (test code = 18.3 % 736-9) MONO % (test code = 6.2 % 5905-5) EOS % (test code = 1.1 % 713-8) BASO % (test code = 0.5 % 706-2) GRAN MAT x10^3(ANC) 6.12 10*3/uL 1.88-7.09 (test code = 4241882572) IMM GRAN x10^3 (test 0.04 10*3/uL 0-0.06 code = 6529081951) LYMPH x10^3 (test code 1.53 10*3/uL 1.32-3.29 = 731-0) MONO x10^3 (test code 0.52 10*3/uL 0.33-0.92 = 742-7) EOS x10^3 (test code = 0.09 10*3/uL 0.03-0.39 711-2) BASO x10^3 (test code 0.04 10*3/uL 0.01-0.07 = 704-7) Lab Interpretation Abnormal (test code = 05914-6) [facility] [id number] 15:27:00 Test Item Value Reference Range Interpretation Comments POCT PREG (test code = 1605) Positive On board controls acceptable with C Yes Line (test code = 3574) POCT PREG LOT # (test code = 3575) POCT PREG TEST DATE (test code = 357) [facility] URINALYSIS W/O SPECIFIC [id number] 15:27:00 Test Item Value Reference Range Interpretation [...] code = 3257) Neg Negative - Negative [facility] [id number] 15:27:00 Test Item Value Reference Range Interpretation Comments POCT PREG (test code = 1605) Positive On board controls acceptable with C Yes Line (test code = 3574) POCT PREG LOT # (test code = 3575) POCT PREG TEST DATE (test code = 3576) [facility] URINALYSIS W/O SPECIFIC [id number] 15:27:00 Test Item Value Reference Range Interpretation [...] code = 3257) Neg Negative - Negative [facility]
--- NOTE | 2021-10-03 23:33 | EDPHYS ---
Physician Documentation [facility] Name: Tyra Ribera Age: 30 yrs Sex: Female : 1990 Arrival Date: 10/03/2021 Time: 22:29 Bed 13 Private MD: MARISABEL Physician Felton Salinas HPI: 10/03 23:25 This 30 yrs old Female presents to ER via Ambulatory with complaints of Wrist zack Injury, Wrist Pain. 23:25 The patient or guardian reports decreased range of motion, pain. The complaints affect zack the right wrist diffusely. Context: The problem was sustained at home. Onset: The symptoms/episode began/occurred just prior to arrival. Modifying factors: The symptoms are alleviated by holding still, ice/coldpack to affected area, the symptoms are aggravated by movement, dependent position. Associated signs and symptoms: The patient has no apparent associated signs or symptoms. Compartment Syndrome negative for numbness, tingling, positive for pain. The patient has not experienced similar symptoms in the past. 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 - Social history:: Smoking status: Patient/guardian denies using tobacco, Stopped _ months ago 5. - Family history:: not pertinent. ROS: 23:25 Constitutional: Negative for fever, chills, and weight loss, Eyes: Negative for injury, zack pain, redness, and discharge, ENT: Negative for injury, pain, and discharge, Neck: Negative for injury, pain, and swelling, Cardiovascular: Negative for chest pain, palpitations, and edema, Respiratory: Negative for shortness of breath, cough, wheezing, and pleuritic chest pain, Abdomen/GI: Negative for abdominal pain, nausea, vomiting, diarrhea, and constipation, Back: Negative for injury and pain, : Negative for injury, bleeding, discharge, and swelling, Skin: Negative for injury, rash, and discoloration, Neuro: Negative for headache, weakness, numbness, tingling, and seizure, Psych: Negative for depression, anxiety, suicide ideation, homicidal ideation, and hallucinations, Allergy/Immunology: Negative for hives, rash, and allergies, Endocrine: Negative for neck swelling, polydipsia, polyuria, polyphagia, and marked weight changes, Hematologic/Lymphatic: Negative for swollen nodes, abnormal bleeding, and unusual bruising. 23:25 : 23:25 MS/extremity: Positive for decreased range of motion, pain, swelling, tenderness, of the dorsal aspect of right wrist and heel of right hand. Exam: 23:28 Hand exam: Exam is positive for decreased range of motion, pain, ROM: limited active zack range of motion, limited passive range of motion, limited active range of motion due to pain, limited passive range of motion due to pain, Circulation is intact in all extremities. sensation intact. Compartment Syndrome exam of affected extremity: severe pain, numbness, tingling, sensation decreased, pale extremity, weak pulse, Tendon exam: specific tendon testing normal through active and passive range of motion 23:28 Constitutional: This is a well developed, well nourished patient who is awake, alert, and in no acute distress. 23:28 Head/Face: Normocephalic, atraumatic. Eyes: Pupils equal round and reactive to light, extra-ocular motions intact. Lids and lashes normal. Conjunctiva and sclera are non-icteric and not injected. Cornea within normal limits. Periorbital areas with no swelling, redness, or edema. ENT: Nares patent. No nasal discharge, no septal abnormalities noted. Tympanic membranes are normal and external auditory canals are clear. Oropharynx with no redness, swelling, or masses, exudates, or evidence of obstruction, uvula midline. Mucous membranes moist. Neck: Trachea midline, no thyromegaly or masses palpated, and no cervical lymphadenopathy. Supple, full range of motion without nuchal rigidity, or vertebral point tenderness. No Meningismus. Chest/axilla: Normal chest wall appearance and motion. Nontender with no deformity. No lesions are appreciated. Cardiovascular: Regular rate and rhythm with a normal S1 and S2. No gallops, murmurs, or rubs. Normal PMI, no JVD. No pulse deficits. Respiratory: Lungs have equal breath sounds bilaterally, clear to auscultation and percussion. No rales, rhonchi or wheezes noted. No increased work of breathing, no retractions or nasal flaring. Abdomen/GI: Soft, non-tender, with normal bowel sounds. No distension or tympany. No guarding or rebound. No evidence of tenderness throughout. Back: No spinal tenderness. No costovertebral tenderness. Full range of motion. Skin: Warm, dry with normal turgor. Normal color with no rashes, no lesions, and no evidence of cellulitis. Neuro: Awake and alert, GCS 15, oriented to person, place, time, and situation. Cranial nerves II-XII grossly intact. Motor strength 5/5 in all extremities. Sensory grossly intact. Cerebellar exam normal. Normal gait. Psych: Awake, alert, with orientation to person, place and time. Behavior, mood, and affect are within normal limits. 23:28 Musculoskeletal/extremity: Extremities: noted in the right wrist: decreased ROM. Vital Signs: 22:38 BP 121 / 72 LA Sitting; Pulse 64; Resp 22; Temp 96.9; Pulse Ox 99% ; Weight 107.95 kg; ss7 Height 5 ft. 4 in. (162.56 cm); Pain 8/10; 23:55 BP 106 / 72 LA Supine (auto/reg); Pulse 66 MON; Resp 16 S; Pulse Ox 100% on R/A; Pain sv1 4/10; 22:38 Body Mass Index 40.85 (107.95 kg, 162.56 cm) ss7 MDM: 22:49 Patient medically screened. zack 23:30 Differential diagnosis: closed fracture, contusion, abrasion, tendonitis. Data zack reviewed: vital signs, nurses notes, radiologic studies, plain films. 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 Test interpretation: by ED physician or midlevel provider: plain radiologic studies. Counseling: I had a detailed discussion with the patient and/or guardian regarding: the historical points, exam findings, and any diagnostic results supporting the discharge/admit diagnosis, radiology results, the need for outpatient follow up, for definitive care, a orthopedic surgeon. 10/03 23:34 Order name: Urine Dipstick-Ancillary EDTN 10/03 23:38 Order name: Urine --Ancillary (enter results) 9 10/03 22:59 Order name: Wrist Right 3 View XRAY [facility] 10/03 22:59 Order name: Ice pack; Complete Time: 23:55 [facility] 10/03 23:32 Order name: Splint: RIGHT COCK UP SPLINT , WRIST; Complete Time: 23:55 [facility] Administered Medications: 23:55 Drug: Motrin (ibuprofen) 800 mg Route: PO; sv1 10/04 00:21 Follow up: Response: No adverse reaction; Pain is decreased sv1 Disposition Summary: 10/03/21 23:33 Discharge Ordered Location: Home [facility] Problem: new zack Symptoms: have improved zack Condition: Stable zack Diagnosis - Contusion of right wrist [facility] Followup: zack - With: Private Physician - When: 2 - 3 days - Reason: Recheck today's complaints, Continuance of care, Re-evaluation by your physician Followup: zack - With: Tirso Ortiz MD - When: 1 - 2 days - Reason: Recheck today's complaints, Re-evaluation by your physician Discharge Instructions: - Discharge Summary Sheet zack - Contusion zack - Wrist Pain, Adult zack - Wrist Splint, Adult zack - Wrist Splint, Adult, Qvlu-il-Fstx zack - Contusion, [id number]-rg-[id number] [facility] Forms: - Medication Reconciliation Form [facility] - Thank You Letter [facility] - Antibiotic Education [facility] - Prescription Opioid Use [facility] Prescriptions: - Diclofenac Sodium 75 mg Oral tablet,delayed release (DR/EC) - take 1 tablet by ORAL route 2 times per day; 20 tablet; Refills: 0, Product [facility] Selection Permitted - Tylenol-Codeine #3 300 mg-30 mg Oral - take 2 tablet by ORAL route every 6 hours; 15 tablet; Refills: 0, Product [facility] Selection Permitted Signatures: Dispatcher [employer] Felton Daigle MD MD cha Villicano, Steven, RN RN sv1 Radha Ng RN RN ss7
--- NOTE | 2021-10-03 23:33 | ER ---
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 Pt c/o right wrist pain. Coronavirus screen: Vaccine status: Patient reports being unvaccinated. Ebola Screen: No symptoms or risks identified at this time. Initial Sepsis Screen: Does the patient meet any 2 criteria? No. Patient's initial sepsis screen is negative. Does the patient have a suspected source of infection? No. Patient's initial sepsis screen is negative. Onset of symptoms was October 03, 2021 at 21:30. 22:37 Method Of Arrival: Ambulatory 7 23:56 Risk Assessment: Do you want to hurt yourself or someone else? Patient reports no sv1 desire to harm self or others. Risk Assessment: Do you want to hurt yourself or someone else? Patient reports no desire to harm self or others. 23:56 Acuity: BREANNA 4 sv1 Triage Assessment: 23:56 General: Appears distressed, uncomfortable, obese, well groomed, well developed, sv1 Behavior is cooperative, appropriate for age. Injury Description: Crush injury sustained to right arm. [place]: 22:38 LMP 09/28/2021 [facility] Historical: - Allergies: 22:38 Latex, Natural Rubber; 7 22:38 PEN[place]ILLINS (Upset stomach); 7 - Home Meds: 22:38 control [Active]; 7 - PMHx: 22:38 None; 7 - PSHx: 22:38 section; Cholecystectomy; Gastric Bypass; 7 - Immunization history:: Adult Immunizations not immunized, Flu vaccine is not up to date. - Social history:: Smoking status: Patient/guardian denies using tobacco, Stopped _ months ago 5. - Family history:: not pertinent. Screenin:07 Abuse screen: Denies threats or abuse. Nutritional screening: No deficits noted. sv1 Tuberculosis screening: No symptoms or risk factors identified. Fall Risk No fall in past 12 months (0 pts). No secondary diagnosis (0 pts). No IV (0 pts). Ambulatory Aid- None/Bed Rest/Nurse Assist (0 pts). Gait- Normal/Bed Rest/Wheelchair (0 pts) Mental Status- Oriented to own ability (0 pts). Total Desai Fall Scale indicates No Risk (0-24 pts). Assessment: 23:06 Pain: Complains of pain in right arm. Musculoskeletal: Capillary refill < 3 seconds, sv1 Range of motion: Bony deformity noted of right arm. 10/04 00:08 Reassessment: Cleared for discharge to home by the providder.. sv1 Vital Signs: 10/03 22:38 BP 121 / 72 LA Sitting; Pulse 64; Resp 22; Temp 96.9; Pulse Ox 99% ; Weight 107.95 kg; ss7 Height 5 ft. 4 in. (162.56 cm); Pain 8/10; 23:55 BP 106 / 72 LA Supine (auto/reg); Pulse 66 MON; Resp 16 S; Pulse Ox 100% on R/A; Pain sv1 4/10; 22:38 Body Mass Index 40.85 (107.95 kg, 162.56 cm) ss7 ED Course: 22:29 Patient arrived in ED. ag3 22:38 Arm band placed on left wrist. ss7 22:49 Felton Salinas MD is Attending Physician. [facility] 23:01 Tirso Williamson, RN is Primary Nurse. sv1 23:07 Patient has correct armband on for positive identification. Bed in low position. Call sv1 light in reach. Side rails up X 1. 23:32 Tirso Ortiz MD is Referral Physician. zack 23:42 Wrist Right 3 View XRAY In Process Unspecified. EDMS 23:57 Triage completed. sv1 10/04 00:00 No provider procedures requiring assistance completed. Patient did not have IV access sv1 during this emergency room visit. Administered Medications: 10/03 23:55 Drug: Motrin (ibuprofen) 800 mg Route: PO; sv1 10/04 00:21 Follow up: Response: No adverse reaction; Pain is decreased sv1 Outcome: 10/03 23:33 Discharge ordered by . [facility] 10/04 00:00 Discharged to home ambulatory, with family. sv1 Condition: improved Discharge instructions given to patient. 00:22 Patient left the ED. sv1 Signatures: Dispatcher [employer] EDMS Felton Salinas MD MD cha Gomez, Alice 3 Tirso Williamson RN RN sv1 Radha Ng RN RN ss7
[2021-10-03 23:34] LABS: Urine Blood Negative (Negative); Urine Glucose Negative (Negative); Urine Protein Negative (Negative); Urine Specific Gravity >=1.030 (1.005-1.030)
[2021-10-03] MEDS ORDERED: IBUPROFEN 400 MG TAB ONE (23:49)
[2021-10-04 01:08] VITALS: BP 106/72; O2SAT 100
[2021-10-04 01:11] VITALS: TEMP 96.9
--- NOTE | 2021-10-04 12:27 | RAD REPORT ---
EXAM DESCRIPTION: RAD - Wrist Right 3 View - 10/03/2021 11:40 pm CLINICAL HISTORY: PAIN Wrist Right 3 View. COMPARISON: None. TECHNIQUE: Three views of the right wrist were obtained: PA, oblique, and lateral radiographs. FINDINGS: No acute osseous abnormality is identified. No scapholunate interval widening. Trace ulnar negative variance. IMPRESSION: No acute osseous abnormality. Electronically signed by: Caitlyn Loja MD 10/03/2021 11:54 PM CDT Due to temporary technical issues with the PACS/Fluency reporting system, reports are being signed by the in house radiologist without review as a courtesy to ensure prompt reporting. The interpreting r adiologist is fully responsible for the content of the report.
== END 2021-10-04 00:22 | disposition home or self-care (01) ==
LOC: ER 22:26
DX: M25.531 Pain in right wrist (principal); S60.211A Contusion of right wrist, initial encounter
CPT/HCPCS: 81003; 81025; 99283

== ENCOUNTER 2022-11-13 20:56 | Emergency (ER) | payer OTHER ==
--- OUTSIDE RECORDS SUMMARY | 2022-11-13 21:03 | XMS REPORT | Continuity of Care Document ---
:1990 Author Organization [facility] t Address [address] [place] [address] Care Team Providers Name Role Phone LINDY GODWIN Primary Care Physician Unavailable Enrike Yeboah I Attending Clinician Unavailable Philly Montemayor Attending Clinician Unavailable LINDY GODWIN Attending Clinician Unavailable Tato Lindy BIRCH Attending Clinician [phone] Doctor Unassigned, [place] Attending Clinician Unavailable [facility] Attending Clinician Unavailable Rachel Maki MD, [place] Attending Clinician [phone] Ultrasound, Huan-yamil Attending Clinician Unavailable Allen Patricio MD Attending Clinician CHRISTINA THOMPSON Attending Clinician Unavailable Faculty, Huan Chong Attending Clinician Unavailable Mike Mace MD Attending Clinician Risk, Ucl-Gcjlf-Tu/High Attending Clinician Unavailable Aubree Angelo Attending Clinician Rehana Hinds Attending Clinician Randolph Szymanski Attending Clinician CHRISTINA THOMPSON Admitting Clinician Unavailable Enrike Yeboah I Admitting Clinician Unavailable Destini Dunlap MD Admitting Clinician [phone] Payers Payer Name Policy Type Policy Number Effective Date Expiration Date Barber avendaño [facility] [id number] 2019 [facility] MEDICAID 00:00:00 Problems Condition Condition Condition Status Onset Resolution Last Treating Co mments Source Name Details Category Date Date Treatment Clinician Date Sinus Sinus Disease Active 2020-0 Univers infection infection 9-25 ity of 00:00: [place] 00 Medical Branch Breakthrou Breakthrou Disease Active 2020-0 U nivers gh gh 8-13 ity of bleeding bleeding 00:00: [place] on on 00 Medical Nexplanon Nexplanon Bran [...] of n of 00 Medical lactating lactating Bran ch mother mother Morbid Morbid Disease Active 2020-0 Univers obesity obesity 3-10 [place] of with body with body 00:[place] mass index mass index 00 Me dical of 50 or of 50 or Branch higher higher 37 weeks 37 weeks Disease Active 2020-0 Unive rs gestation gestation 3-10 ity of of of 00:00: [place] 00 [facility] Gestationa Gestationa Disease Active 2020-0 U nivers l l 3-10 ity of hypertensi hypertensi [place] on, Medical antepartum antepartum Br anch Morbid Morbid Disease Active 2020-0 Univers obesity obesity 3-10 ity of with BMI with BMI 00:00: [place] of of 00 Medical 45.0-49.9, 45.0-49.9, Br anch adult adult URI (upper URI (upper Disease Active 2019- U nivers respirator respirator 2-30 it y of y y 00:00: [place] infection) infection) 00 Me dical Branch Generalize Generalize Disease Active 2019- U nivers d body d body 2-30 ity of aches aches 00:00: [place] 00 Medical Branch Influenza Influenza Disease Active 2018-07 Uni vers B B 2-30 ity of 00:00: [place] 00 Medical Branch Screening, Screening, Disease Active 2019- U nivers , , 0-07 it y of isoimmuniz isoimmuniz [place] 00 Medical Branch BMI BMI Disease Active 2018- Univers 50.0-59.9, 50.0-59.9, 0-07 it y of adult adult 00:00: [place] 00 Medical Branch Supervisio Supervisio Disease Active 2019- U nivers n of n of 7-17 ity of high-risk high-risk 00:[place] [facility] Multiparit Multiparit Disease Active 2019- U nivers y y 7-17 ity of 00:00: [place] 00 Medical Branch History of History of Disease Active 2019 Overview : Univers 7-17 X2 ity of section section 00:00: pending [place] 00 [facility] Medical Branch Obesity in Obesity in Disease Active 2019- U nivers 7-17 ity of 00:00: 00 Medical Branch Tobacco Tobacco Disease Active 2019- Univers use during use during 7-17 [place] Tobacco Tobacco Disease Active 2019- Univers use use 7-17 ity of 00:00: [place] 00 Medical Branch Tobacco Tobacco Disease Active 2019- Univers use use 7-17 ity of 00:00: [place] 00 Medical Branch Allergies, Adverse Reactions, Alerts Allergy Allergy Status Severity Reaction(s) Onset Inactive Treating Comm ents Source Name Type Date Date Clinician Penicill DA Active U 2020-0 [facility] ins 8-11 Clear 00:00: [place] 00 [facility] latex DA Active U 2020-0 [facility] 8-11 Clear 00:00: [place] 00 [facility] Penicill DA Active U VOMITING 2020-0 [facility] ins 8-11 [place] 00:00: d 00 [facility] latex DA Active U SWELLING 2020-0 [facility] 8-11 [place] 00:00: d 00 [facility] Penicill Propensi Active Nausea Univer s in ty to and/or 7-17 ity of adverse Vomiting 00:00: [place] reaction 00 Medical s Branch Penicill Propensi Active Nausea 2018- Univer s in ty to and/or 01-26 ity of adverse Vomiting 00:00: [place] reaction Medical s Branch PENICILL DRUG Active N/V 2018- Univers IN INGREDI 01-26 ity of 00:00: [place] [facility] [place] Social History Social Habit Start Date Stop Date Quantity Comments Source ASSERTION 2019-01-13 University 00:00:00 [facility] History of tobacco 2007-01-26 Cigarette Smoker University of use 00:00:00 [facility] History [facility] o f Alcohol Binge [facility] Sex Assigned At Universit y of [facility] Exposure to Not sure [place] of SARS-CoV-2 (event) [facility] History [facility] o f Alcohol Std Drinks [facility] Tobacco use and 2020-08-09 2020-08-09 [facility]00 [facility] Cigarettes smoked 2020-08-09 2020-08-09 Univers ity of current (pack per 00:00:00 00:00:00 [facility]) - Reported Branch Alcohol intake 2020-08-09 2020-08-09 Ex-drinker University 00:00:00 00:00:00 (finding) [facility] Tobacco Comment 2020-02-02 2020-02-02 1 pack a day Univers ity of 00:00:00 00:00:00 [facility] History SDOH 2019-01-26 2019-01-26 1 University o f Alcohol Frequency 00:00:00 00:00:00 [facility] Smoking Status Start Date Stop Date Source Current every day smoker 2020-08-09 00:00:00 Uni versity of [facility] Medications Ordered Filled Start Stop Current Ordering Indication Dosage Frequency Signature Comments Components Source Medication Medication Date Date Medication? Clinician (SIG) Name Name levonorgest Yes [id number] 1{tbl} Take 1 Univers rel-ethinyl 1-28 tablet by ity of estradiol 00:00: mouth [place] (SRONYX) 00 daily. Medical 0.1-20 Branch mg-mcg per tablet levonorgest Yes [id number] 1{tbl} Take 1 Univers rel-ethinyl 1-28 tablet by ity of estradiol 00:00: mouth [place] (SRONYX) 00 daily. Medical 0.1-20 Branch mg-mcg per tablet levonorgest Yes [id number] 1{tbl} Take 1 Univers rel-ethinyl 1-28 tablet by ity of estradiol 00:00: mouth [place] (SRONYX) 00 daily. Medical 0.1-20 Branch mg-mcg per tablet levonorgest Yes [id number] 1{tbl} Take 1 Univers rel-ethinyl 1-28 tablet by ity of estradiol 00:00: mouth [place] (SRONYX) 00 daily. Medical 0.1-20 Branch mg-mcg per tablet azithromyci 2020-0 Yes [id number] 250mg Take 1 Univers n 9-25 tablet by ity of (ZITHROMAX 00:00: mouth [place] Z-THA) 250 00 daily. Medical mg tablet Take 500 Branch mg day 1, then 250 mg days 2 to 5. azithromyci 2020-0 Yes [id number] 250mg Take 1 Univers n 9-25 tablet by ity of (ZITHROMAX 00:00: mouth [place] Z-THA) 250 00 daily. Medical mg tablet Take 500 Branch mg day 1, then 250 mg days 2 to 5. azithromyci 2020-0 Yes [id number] 250mg Take 1 Univers n 9-25 tablet by ity of (ZITHROMAX 00:00: mouth [place] Z-THA) 250 00 daily. Medical mg tablet Take 500 Branch mg day 1, then 250 mg days 2 to 5. azithromyci 2020-0 Yes [id number] 250mg Take 1 Univers n 9-25 tablet by ity of (ZITHROMAX 00:00: mouth [place] Z-THA) 250 00 daily. Medical mg tablet Take 500 Branch mg day 1, then 250 mg days 2 to 5. azithromyci 2020-0 Yes [id number] 250mg Take 1 Univers n 9-25 tablet by ity of (ZITHROMAX 00:00: mouth [place] Z-THA) 250 00 daily. Medical mg tablet Take 500 Branch mg day 1, then 250 mg days 2 to 5. azithromyci 2020-0 Yes [id number] 250mg Take 1 Univers n 9-25 tablet by ity of (ZITHROMAX 00:00: mouth [place] Z-THA) 250 00 daily. Medical mg tablet Take 500 Branch mg day 1, then 250 mg days 2 to 5. azithromyci 2019- Yes [id number] 250mg Take 1 Univers n 9-25 tablet by ity of (ZITHROMAX 00:00: mouth [place] Z-THA) 250 00 daily. Medical mg tablet Take 500 Branch mg day 1, then 250 mg days 2 to 5. estradiol 2 2019-2019- No [id number] 2mg Take 1 Univers mg tablet 02-22 tablet by ity of 00:00: 04:59 mouth [place] 00 :00 daily for Medical 21 days. Branch estradiol 2 2019- No [id number] 2mg Take 1 Univers mg tablet 02-22 tablet by ity of 00:00: 04:59 mouth [place] 00 :00 daily for Medical 21 days. Branch etonogestre 2019-2019- No 68mg Unive rs l 02-08 ity of (NEXPLANON) 15:30: 14:28 [place] implant 68 00 :00 Medical mg Branch etonogestre 2019- No 68mg 68 mg, Uni vers l 02-08 Subdermal, ity of (NEXPLANON) 15:30: 14:28 ONCE NOW, [place] implant 00 :00 1 dose, Medica l mg [place] 02/09/20 at 1030, Routine
Use approved by: DR[employer] SANDER etonogestre 2019- No 68mg Unive rs l 02-0830 ity of (NEXPLANON) 15:30: 14:28 [place] implant 68 00 :00 Medical mg Branch etonogestre 2019- No 68mg 68 mg, Uni vers l 02-08 Subdermal, ity of (NEXPLANON) 15:30: 14:28 ONCE NOW, [place] implant 68 00 :00 1 dose, Medica l mg [place] 02/09/20 at 1030, Routine
Use approved by: [employer] S[employer]ER etonogestre 2019-2019- No 68mg Unive rs l 02-0830 ity of (NEXPLANON) 15:30: 14:28 [place] implant 68 00 :00 Medical mg Branch etonogestre 2019-2019- No 68mg 68 mg, Uni vers l 02-08 0730 Subdermal, ity of (NEXPLANON) 15:30: 14:28 ONCE NOW, [place] implant 68 00 :00 1 dose, Medica l mg [place] Branch 02/09/20 at 1030, Routine
Use approved by: [employer] S[employer]ER medroxyPROG 2020-0 Yes [id number] 150mg Univers ESTERone 5-05 ity of (DEPO-PROVE 15:30: [place] RA) 00 Medical injection Branch 150 mg medroxyPROG 2020-0 Yes [id number] 150mg 150 mg, Univers ESTERone 5-05 Intramuscu ity o f (DEPO-PROVE 15:30: lar, [place] RA) 00 [id number], Medical injection First dose Bran ch 150 mg on e 11/15/19 at 1030, Until Discontinu ed, Routine medroxyPROG 2020-0 Yes [id number] 150mg Univers ESTERone 5-05 ity of (DEPO-PROVE 15:30: [place] RA) 00 Medical injection Branch 150 mg medroxyPROG 2020-0 Yes [id number] 150mg Univers ESTERone 5-05 ity of (DEPO-PROVE 15:30: [place] RA) 00 Medical injection Branch 150 mg medroxyPROG 2020-0 Yes [id number] 150mg Univers ESTERone 5-05 ity of (DEPO-PROVE 15:30: [place] RA) 00 Medical injection Branch 150 mg medroxyPROG 2020-0 Yes [id number] 150mg Univers ESTERone 5-05 ity of (DEPO-PROVE 15:30: [place] RA) 00 Medical injection Branch 150 mg medroxyPROG 2020-0 Yes [id number] 150mg Univers ESTERone 5-05 ity of (DEPO-PROVE 15:30: [place] RA) 00 Medical injection Branch 150 mg medroxyPROG 2020-0 Yes [id number] 150mg Univers ESTERone 5-05 ity of (DEPO-PROVE 15:30: [place] RA) 00 Medical injection Branch 150 mg medroxyPROG 2020-0 Yes [id number] 150mg Univers ESTERone 5-05 ity of (DEPO-PROVE 15:30: [place] RA) 00 Medical injection Branch 150 mg medroxyPROG 2020-0 Yes [id number] 150mg Univers ESTERone 5-05 ity of (DEPO-PROVE 15:30: [place] RA) 00 Medical injection Branch 150 mg medroxyPROG 2020-0 Yes [id number] 150mg Univers ESTERone 5-05 ity of (DEPO-PROVE 15:30: [place] RA) 00 Medical injection Branch 150 mg medroxyPROG 2020-0 Yes [id number] 150mg Univers ESTERone 5-05 ity of (DEPO-PROVE 15:30: [place] RA) 00 Medical injection Branch 150 mg medroxyPROG 2020-0 Yes [id number] 150mg Univers ESTERone 5-05 ity of (DEPO-PROVE 15:30: [place] RA) 00 Medical injection Branch 150 mg medroxyPROG 2020-0 Yes [id number] 150mg Univers ESTERone 5-05 ity of (DEPO-PROVE 15:30: [place] RA) 00 Medical injection Branch 150 mg medroxyPROG 2020-0 Yes [id number] 150mg Univers ESTERone 5-05 ity of (DEPO-PROVE 15:30: [place] RA) 00 Medical injection Branch 150 mg medroxyPROG 2020-0 Yes [id number] 150mg Univers ESTERone 5-05 ity of (DEPO-PROVE 15:30: [place] RA) 00 Medical injection Branch 150 mg medroxyPROG 2020-0 Yes [id number] 150mg Univers ESTERone 5-05 ity of (DEPO-PROVE 15:30: [place] RA) 00 Medical injection Branch 150 mg medroxyPROG 2020-0 Yes [id number] 150mg Univers ESTERone 5-05 ity of (DEPO-PROVE 15:30: [place] RA) 00 Medical injection Branch 150 mg benzocaine- 2020-0 Yes 1{lozen 1 Lozenge, Univers menthol 3-12 ge} Oral, ity of (CEPACOL 17:42: Q4HPRN, [place] SORE THROAT 16 Starting Medi daisy (DEANNA-MEN)) [place] Branch lozenge 1 09/22/19 at Lozenge 1242, Until Discontinu ed, Routine, Sore throat 2019-0 Yes [id number] 1{tbl} Take 1 Univers vitamin 3-12 tablet by ity of w/FA tablet 00:00: mouth [place] 00 daily. May Medical substitute Branch for what is in stock and covered by patient plan docusate 2020-0 Yes [id number] 240mg Take 1 U nivers calcium 240 3-12 capsule by it y of mg capsule 00:00: mouth [place] 00 daily as Medical needed for Branch Constipati on. May substitute for what is in stock and covered by patient plan ferrous 20200 Yes [id number] 325mg Take 1 Un swapnil sulfate 325 3-12 tablet by ity of mg (65 mg 00:00: mouth 2 [place] iron) 00 (two) Medical tablet times Branch daily. May substitute for what is in stock and covered by patient plan ibuprofen 0 Yes [id number] 600mg Take 1 Univers 600 mg 3-12 tablet by ity of tablet 00:00: mouth [place] 00 every 6 Medical (six) Branch hours as needed (Pain). Take with food or milk. Yes [id number] 1{tbl} Take 1 Univers vitamin 3-12 tablet by ity of w/FA tablet 00:00: mouth [place] 00 daily. May Medical substitute Branch for what is in stock and covered by patient plan docusate Yes [id number] 240mg Take 1 U nivers calcium 240 3-12 capsule by it y of mg capsule 00:00: mouth [place] 00 daily as Medical needed for Branch Constipati on. May substitute for what is in stock and covered by patient plan ferrous Yes [id number] 325mg Take 1 Un swapnil sulfate 325 3-12 tablet by ity of mg (65 mg 00:00: mouth 2 [place] iron) 00 (two) Medical tablet times Branch daily. May substitute for what is in stock and covered by patient plan ibuprofen 0 Yes [id number] 600mg Take 1 Univers 600 mg 3-12 tablet by ity of tablet 00:00: mouth [place] 00 every 6 Medical (six) Branch hours as needed (Pain). Take with food or milk. Yes [id number] 1{tbl} Take 1 Univers vitamin 3-12 tablet by ity of w/FA tablet 00:00: mouth [place] 00 daily. May Medical substitute Branch for what is in stock and covered by patient plan docusate Yes [id number] 240mg Take 1 U nivers calcium 240 3-12 capsule by it y of mg capsule 00:00: mouth once [place] 00 daily as Medical needed for Branch Constipati on. May substitute for what is in stock and covered by patient plan ferrous 2019-0 Yes [id number] 325mg Take 1 Un swapnil sulfate 325 3-12 tablet by ity of mg (65 mg 00:00: mouth 2 [place] iron) 00 (two) Medical tablet times Branch daily. May substitute for what is in stock and covered by patient plan ibuprofen 0 Yes [id number] 600mg Take 1 Univers 600 mg 3-12 tablet by ity of tablet 00:00: mouth [place] 00 every 6 Medical (six) Branch hours as needed (Pain). Take with food or milk. Yes [id number] 1{tbl} Take 1 Univers vitamin 3-12 tablet by ity of w/FA tablet 00:00: mouth [place] 00 daily. May Medical substitute Branch for what is in stock and covered by patient plan docusate Yes [id number] 240mg Take 1 U nivers calcium 240 3-12 capsule by it y of mg capsule 00:00: mouth once [place] 00 daily as Medical needed for Branch Constipati on. May substitute for what is in stock and covered by patient plan ferrous Yes [id number] 325mg Take 1 Un swapnil sulfate 325 3-12 tablet by ity of mg (65 mg 00:00: mouth 2 [place] iron) 00 (two) Medical tablet times Branch daily. May substitute for what is in stock and covered by patient plan ibuprofen Yes [id number] 600mg Take 1 Univers 600 mg 3-12 tablet by ity of tablet 00:00: mouth [place] 00 every 6 Medical (six) Branch hours as needed (Pain). Take with food or milk. Yes [id number] 1{tbl} Take 1 Univers vitamin 3-12 tablet by ity of w/FA tablet 00:00: mouth [place] 00 daily. May Medical substitute Branch for what is in stock and covered by patient plan docusate Yes [id number] 240mg Take 1 U nivers calcium 240 3-12 capsule by it y of mg capsule 00:00: mouth once [place] 00 daily as Medical needed for Branch Constipati on. May substitute for what is in stock and covered by patient plan ferrous 0 Yes [id number] 325mg Take 1 Un swapnil sulfate 325 3-12 tablet by ity of mg (65 mg 00:00: mouth 2 [place] iron) 00 (two) Medical tablet times Branch daily. May substitute for what is in stock and covered by patient plan ibuprofen Yes [id number] 600mg Take 1 Univers 600 mg 3-12 tablet by ity of tablet 00:00: mouth [place] 00 every 6 Medical (six) Branch hours as needed (Pain). Take with food or milk. Yes [id number] 1{tbl} Take 1 Univers vitamin 3-12 tablet by ity of w/FA tablet 00:00: mouth [place] 00 daily. May Medical substitute Branch for what is in stock and covered by patient plan docusate Yes [id number] 240mg Take 1 U nivers calcium 240 3-12 capsule by it y of mg capsule 00:00: mouth once [place] 00 daily as Medical needed for Branch Constipati on. May substitute for what is in stock and covered by patient plan ferrous Yes [id number] 325mg Take 1 Un swapnil sulfate 325 3-12 tablet by ity of mg (65 mg 00:00: mouth 2 [place] iron) 00 (two) Medical tablet times Branch daily. May substitute for what is in stock and covered by patient plan ibuprofen Yes [id number] 600mg Take 1 Univers 600 mg 3-12 tablet by ity of tablet 00:00: mouth [place] 00 every 6 Medical (six) Branch hours as needed (Pain). Take with food or milk. Yes [id number] 1{tbl} Take 1 Univers vitamin 3-12 tablet by ity of w/FA tablet 00:00: mouth [place] 00 daily. May Medical substitute Branch for what is in stock and covered by patient plan docusate Yes [id number] 240mg Take 1 U nivers calcium 240 3-12 capsule by it y of mg capsule 00:00: mouth once [place] 00 daily as Medical needed for Branch Constipati on. May substitute for what is in stock and covered by patient plan ferrous Yes [id number] 325mg Take 1 Un swapnil sulfate 325 3-12 tablet by ity of mg (65 mg 00:00: mouth 2 [place] iron) 00 (two) Medical tablet times Branch daily. May substitute for what is in stock and covered by patient plan ibuprofen Yes [id number] 600mg Take 1 Univers 600 mg 3-12 tablet by ity of tablet 00:00: mouth [place] 00 every 6 Medical (six) Branch hours as needed (Pain). Take with food or milk. Yes [id number] 1{tbl} Take 1 Univers vitamin 3-12 tablet by ity of w/FA tablet 00:00: mouth [place] 00 daily. May Medical substitute Branch for what is in stock and covered by patient plan docusate Yes [id number] 240mg Take 1 U nivers calcium 240 3-12 capsule by it y of mg capsule 00:00: mouth once [place] 00 daily as Medical needed for Branch Constipati on. May substitute for what is in stock and covered by patient plan ferrous Yes [id number] 325mg Take 1 Un swapnil sulfate 325 3-12 tablet by ity of mg (65 mg 00:00: mouth 2 [place] iron) 00 (two) Medical tablet times Branch daily. May substitute for what is in stock and covered by patient plan ibuprofen Yes [id number] 600mg Take 1 Univers 600 mg 3-12 tablet by ity of tablet 00:00: mouth [place] 00 every 6 Medical (six) Branch hours as needed (Pain). Take with food or milk. Yes [id number] 1{tbl} Take 1 Univers vitamin 3-12 tablet by ity of w/FA tablet 00:00: mouth [place] 00 daily. May Medical substitute Branch for what is in stock and covered by patient plan docusate Yes [id number] 240mg Take 1 U nivers calcium 240 3-12 capsule by it y of mg capsule 00:00: mouth once [place] 00 daily as Medical needed for Branch Constipati on. May substitute for what is in stock and covered by patient plan ferrous Yes [id number] 325mg Take 1 Un swapnil sulfate 325 3-12 tablet by ity of mg (65 mg 00:00: mouth 2 [place] iron) 00 (two) Medical tablet times Branch daily. May substitute for what is in stock and covered by patient plan ibuprofen Yes [id number] 600mg Take 1 Univers 600 mg 3-12 tablet by ity of tablet 00:00: mouth [place] 00 every 6 Medical (six) Branch hours as needed (Pain). Take with food or milk. Yes [id number] 1{tbl} Take 1 Univers vitamin 3-12 tablet by ity of w/FA tablet 00:00: mouth [place] 00 daily. May Medical substitute Branch for what is in stock and covered by patient plan docusate 2020 Yes [id number] 240mg Take 1 U nivers calcium 240 3-12 capsule by it y of mg capsule 00:00: mouth once [place] 00 daily as Medical needed for Branch Constipati on. May substitute for what is in stock and covered by patient plan ferrous 2020-0 Yes [id number] 325mg Take 1 Un swapnil sulfate 325 3-12 tablet by ity of mg (65 mg 00:00: mouth 2 [place] iron) 00 (two) Medical tablet times Branch daily. May substitute for what is in stock and covered by patient plan ibuprofen Yes [id number] 600mg Take 1 Univers 600 mg 3-12 tablet by ity of tablet 00:00: mouth [place] 00 every 6 Medical (six) Branch hours as needed (Pain). Take with food or milk. Yes [id number] 1{tbl} Take 1 Univers vitamin 3-12 tablet by ity of w/FA tablet 00:00: mouth [place] 00 daily. May Medical substitute Branch for what is in stock and covered by patient plan docusate Yes [id number] 240mg Take 1 U nivers calcium 240 3-12 capsule by it y of mg capsule 00:00: mouth once [place] 00 daily as Medical needed for Branch Constipati on. May substitute for what is in stock and covered by patient plan ferrous Yes [id number] 325mg Take 1 Un swapnil sulfate 325 3-12 tablet by ity of mg (65 mg 00:00: mouth 2 [place] iron) 00 (two) Medical tablet times Branch daily. May substitute for what is in stock and covered by patient plan ibuprofen 0 Yes [id number] 600mg Take 1 Univers 600 mg 3-12 tablet by ity of tablet 00:00: mouth [place] 00 every 6 Medical (six) Branch hours as needed (Pain). Take with food or milk. Yes [id number] 1{tbl} Take 1 Univers vitamin 3-12 tablet by ity of w/FA tablet 00:00: mouth [place] 00 daily. May Medical substitute Branch for what is in stock and covered by patient plan docusate Yes [id number] 240mg Take 1 U nivers calcium 240 3-12 capsule by it y of mg capsule 00:00: mouth once [place] 00 daily as Medical needed for Branch Constipati on. May substitute for what is in stock and covered by patient plan ferrous 2020-0 Yes [id number] 325mg Take 1 Un swapnil sulfate 325 3-12 tablet by ity of mg (65 mg 00:00: mouth 2 [place] iron) 00 (two) Medical tablet times Branch daily. May substitute for what is in stock and covered by patient plan ibuprofen 2019-0 Yes [id number] 600mg Take 1 Univers 600 mg 3-12 tablet by ity of tablet 00:00: mouth [place] 00 every 6 Medical (six) Branch hours as needed (Pain). Take with food or milk. Yes [id number] 1{tbl} Take 1 Univers vitamin 3-12 tablet by ity of w/FA tablet 00:00: mouth [place] 00 daily. May Medical substitute Branch for what is in stock and covered by patient plan docusate Yes [id number] 240mg Take 1 U nivers calcium 240 3-12 capsule by it y of mg capsule 00:00: mouth once [place] 00 daily as Medical needed for Branch Constipati on. May substitute for what is in stock and covered by patient plan ferrous 0 Yes [id number] 325mg Take 1 Un swapnil sulfate 325 3-12 tablet by ity of mg (65 mg 00:00: mouth 2 [place] iron) 00 (two) Medical tablet times Branch daily. May substitute for what is in stock and covered by patient plan ibuprofen 0 Yes [id number] 600mg Take 1 Univers 600 mg 3-12 tablet by ity of tablet 00:00: mouth [place] 00 every 6 Medical (six) Branch hours as needed (Pain). Take with food or milk. Yes [id number] 1{tbl} Take 1 Univers vitamin 3-12 tablet by ity of w/FA tablet 00:00: mouth [place] 00 daily. May Medical substitute Branch for what is in stock and covered by patient plan docusate Yes [id number] 240mg Take 1 U nivers calcium 240 3-12 capsule by it y of mg capsule 00:00: mouth once [place] 00 daily as Medical needed for Branch Constipati on. May substitute for what is in stock and covered by patient plan ferrous 20200 Yes [id number] 325mg Take 1 Un swapnil sulfate 325 3-12 tablet by ity of mg (65 mg 00:00: mouth 2 [place] iron) 00 (two) Medical tablet times Branch daily. May substitute for what is in stock and covered by patient plan ibuprofen 0 Yes [id number] 600mg Take 1 [facility] 600 mg 3-12 tablet by ity of tablet 00:00: mouth [place] 00 every 6 Medical (six) Branch hours as needed (Pain). Take with food or milk. Yes [id number] 1{tbl} Take 1 [facility] vitamin 3-12 tablet by ity of w/FA tablet 00:00: mouth [place] 00 daily. May Medical substitute Branch for what is in stock and covered by patient plan docusate Yes [id number] 240mg Take 1 U nivers calcium 240 3-12 capsule by it y of mg capsule 00:00: mouth once [place] 00 daily as Medical needed for Branch Constipati on. May substitute for what is in stock and covered by patient plan ferrous 0 Yes [id number] 325mg Take 1 Un swapnil sulfate 325 3-12 tablet by ity of mg (65 mg 00:00: mouth 2 [place] iron) 00 (two) Medical tablet times Branch daily. May substitute for what is in stock and covered by patient plan ibuprofen Yes [id number] 600mg Take 1 [facility] 600 mg 3-12 tablet by ity of tablet 00:00: mouth [place] 00 every 6 Medical (six) Branch hours as needed (Pain). Take with food or milk. Yes [id number] 1{tbl} Take 1 [facility] vitamin 3-12 tablet by ity of w/FA tablet 00:00: mouth [place] 00 daily. May Medical substitute Branch for what is in stock and covered by patient plan docusate 0 Yes [id number] 240mg Take 1 U nivers calcium 240 3-12 capsule by it y of mg capsule 00:00: mouth once [place] 00 daily as Medical needed for Branch Constipati on. May substitute for what is in stock and covered by patient plan ferrous 2019-0 Yes [id number] 325mg Take 1 Un swapnil sulfate 325 3-12 tablet by ity of mg (65 mg 00:00: mouth 2 [place] iron) 00 (two) Medical tablet times Branch daily. May substitute for what is in stock and covered by patient plan ibuprofen Yes [id number] 600mg Take 1 [facility] 600 mg 3-12 tablet by ity of tablet 00:00: mouth [place] 00 every 6 Medical (six) Branch hours as needed (Pain). Take with food or milk. Yes [id number] 1{tbl} Take 1 [facility] vitamin 3-12 tablet by ity of w/FA tablet 00:00: mouth [place] 00 daily. May Medical substitute Branch for what is in stock and covered by patient plan docusate Yes [id number] 240mg Take 1 U nivers calcium 240 3-12 capsule by it y of mg capsule 00:00: mouth once [place] 00 daily as Medical needed for Branch Constipati on. May substitute for what is in stock and covered by patient plan ferrous Yes [id number] 325mg Take 1 Un swapnil sulfate 325 3-12 tablet by ity of mg (65 mg 00:00: mouth 2 [place] iron) 00 (two) Medical tablet times Branch daily. May substitute for what is in stock and covered by patient plan ibuprofen Yes [id number] 600mg Take 1 [facility] 600 mg 3-12 tablet by ity of tablet 00:00: mouth [place] 00 every 6 Medical (six) Branch hours as needed (Pain). Take with food or milk. Yes [id number] 1{tbl} Take 1 [facility] vitamin 3-12 tablet by ity of w/FA tablet 00:00: mouth [place] 00 daily. May Medical substitute Branch for what is in stock and covered by patient plan docusate Yes [id number] 240mg Take 1 U nivers calcium 240 3-12 capsule by it y of mg capsule 00:00: mouth once [place] 00 daily as Medical needed for Branch Constipati on. May substitute for what is in stock and covered by patient plan ferrous Yes [id number] 325mg Take 1 Un swapnil sulfate 325 3-12 tablet by ity of mg (65 mg 00:00: mouth 2 [place] iron) 00 (two) Medical tablet times Branch daily. May substitute for what is in stock and covered by patient plan ibuprofen Yes [id number] 600mg Take 1 [facility] 600 mg 3-12 tablet by ity of tablet 00:00: mouth [place] 00 every 6 Medical (six) Branch hours as needed (Pain). Take with food or milk. Yes [id number] 1{tbl} Take 1 [facility] vitamin 3-12 tablet by ity of w/FA tablet 00:00: mouth [place] 00 daily. May Medical substitute Branch for what is in stock and covered by patient plan docusate Yes [id number] 240mg Take 1 U nivers calcium 240 3-12 capsule by it y of mg capsule 00:00: mouth once [place] 00 daily as Medical needed for Branch Constipati on. May substitute for what is in stock and covered by patient plan ferrous Yes [id number] 325mg Take 1 Un swapnil sulfate 325 3-12 tablet by ity of mg (65 mg 00:00: mouth 2 [place] iron) 00 (two) Medical tablet times Branch daily. May substitute for what is in stock and covered by patient plan ibuprofen Yes [id number] 600mg Take 1 [facility] 600 mg 3-12 tablet by ity of tablet 00:00: mouth [place] 00 every 6 Medical (six) Branch hours as needed (Pain). Take with food or milk. Yes [id number] 1{tbl} Take 1 [facility] vitamin 3-12 tablet by ity of w/FA tablet 00:00: mouth [place] 00 daily. May Medical substitute Branch for what is in stock and covered by patient plan docusate Yes [id number] 240mg Take 1 U nivers calcium 240 3-12 capsule by it y of mg capsule 00:00: mouth once [place] 00 daily as Medical needed for Branch Constipati on. May substitute for what is in stock and covered by patient plan ferrous Yes [id number] 325mg Take 1 Un swapnil sulfate 325 3-12 tablet by ity of mg (65 mg 00:00: mouth 2 [place] iron) 00 (two) Medical tablet times Branch daily. May substitute for what is in stock and covered by patient plan ibuprofen Yes [id number] 600mg Take 1 [facility] 600 mg 3-12 tablet by ity of tablet 00:00: mouth [place] 00 every 6 Medical (six) Branch hours as needed (Pain). Take with food or milk. Yes [id number] 1{tbl} Take 1 [facility] vitamin 3-12 tablet by ity of w/FA tablet 00:00: mouth [place] 00 daily. May Medical substitute Branch for what is in stock and covered by patient plan docusate Yes [id number] 240mg Take 1 U nivers calcium 240 3-12 capsule by it y of mg capsule 00:00: mouth once [place] 00 daily as Medical needed for Branch Constipati on. May substitute for what is in stock and covered by patient plan ferrous 0 Yes [id number] 325mg Take 1 Un swapnil sulfate 325 3-12 tablet by ity of mg (65 mg 00:00: mouth 2 [place] iron) 00 (two) Medical tablet times Branch daily. May substitute for what is in stock and covered by patient plan ibuprofen Yes [id number] 600mg Take 1 [facility] 600 mg 3-12 tablet by ity of tablet 00:00: mouth [place] 00 every 6 Medical (six) Branch hours as needed (Pain). Take with food or milk. Yes [id number] 1{tbl} Take 1 [facility] vitamin 3-12 tablet by ity of w/FA tablet 00:00: mouth [place] 00 daily. May Medical substitute Branch for what is in stock and covered by patient plan docusate Yes [id number] 240mg Take 1 U nivers calcium 240 3-12 capsule by it y of mg capsule 00:00: mouth once [place] 00 daily as Medical needed for Branch Constipati on. May substitute for what is in stock and covered by patient plan ferrous Yes [id number] 325mg Take 1 Un swapnil sulfate 325 3-12 tablet by ity of mg (65 mg 00:00: mouth 2 [place] iron) 00 (two) Medical tablet times Branch daily. May substitute for what is in stock and covered by patient plan ibuprofen Yes [id number] 600mg Take 1 [facility] 600 mg 3-12 tablet by ity of tablet 00:00: mouth [place] 00 every 6 Medical (six) Branch hours as needed (Pain). Take with food or milk. Yes [id number] 1{tbl} Take 1 [facility] vitamin 3-12 tablet by ity of w/FA tablet 00:00: mouth [place] 00 daily. May Medical substitute Branch for what is in stock and covered by patient plan docusate Yes [id number] 240mg Take 1 U nivers calcium 240 3-12 capsule by it y of mg capsule 00:00: mouth once [place] 00 daily as Medical needed for Branch Constipati on. May substitute for what is in stock and covered by patient plan ferrous 2019-0 Yes [id number] 325mg Take 1 Un swapnil sulfate 325 3-12 tablet by ity of mg (65 mg 00:00: mouth 2 [place] iron) 00 (two) Medical tablet times Branch daily. May substitute for what is in stock and covered by patient plan ibuprofen 0 Yes [id number] 600mg Take 1 [facility] 600 mg 3-12 tablet by ity of tablet 00:00: mouth [place] 00 every 6 Medical (six) Branch hours as needed (Pain). Take with food or milk. HYDROcodone 2020- No [id number] 1{tbl} Take 1 Univers -acetaminop 3-12 03-20 tablet by it y of hen 5-325 00:00: 04:59 mouth [place] mg tablet 00 :00 every 6 Medical (six) Branch hours as needed (Pain scale > 4) for up to 7 days. Do not exceed 3 grams of acetaminop hen in 24 hours. HYDROcodone 2020- No [id number] 1{tbl} Take 1 Univers -acetaminop 3-12 03-20 [...] syringe DISCHARGE, 0.5 mL 1 dose, Starting Thu09/20/19 at 2159, Until Discontinu ed, Routine, Give vaccine prior to discharge HYDROcodone 2020-0 Yes 2{tbl} 2 tablet, Univers -acetaminop 3-11 Oral, ity of hen (NORCO 02:59: Q6HPRN, [place] 5) 5-325 mg 41 Starting Medi daisy tablet 2 Tue Branch tablet 09/20/19 at 2158, Until Discontinu ed, Routine, Pain (scale 7-10), [...] piggyback Q6HPRN, 1 25 mg dose, Starting [facility] 09/20/19 at 2158, Until Discontinu ed, Routine, Itching diphenhydrA 0 Yes 25mg 25 mg, Univ ers MINE 09-20 Oral, ity of (BENADRYL) 02:59: Q6HPRN, [place] tablet 25 [address] Starting [address] l [address] [facility] 09/20/19 at 2158, Until Discontinu ed, Routine, Sleep, Itching bisacodyL 0 Yes 10mg 10 mg, Univer s (DULCOLAX) 09-20 Rectal, ity of suppository 02:59: QDAILYPRN, [place] 10 mg [address] [facility] 09/20/19 at 2158, Until Discontinu ed, Routine, Constipati on docusate Yes 240mg 240 mg, Unive rs calcium 09-20 Oral, ity of (SURFAK) 02:59: QDAILYPRN, [place] capsule 240 [address] [facility] 09/20/19 at 2158, Until Discontinu ed, Routine, Constipati on naloxone 2020- No .4mg 0.4 mg, Unive rs (NARCAN) 09-20 Slow IV ity of injection 01:12: 01:11 Push, PRN [place] 0.4 mg 35 :35 - SEE Medical INSTRUCTIO Branch NS, Starting 09/20/19 at 2011, Until [place] 09/22/19 at 2010, Routine, Analgesia Recovery, PACU ketorolac 2020- No 30mg 30 mg, Unive rs (TORADOL) 09-20 Slow IV ity of injection 01:12: 01:45 Push, PRN, [place] 30 mg 35 :00 1 dose, Medical Starting Branch [facility] 09/20/19 at 2011, Until Thu09/20/19 at 2044, Routine, Pain (scale 7-10), PACU
Fa culty member approving Restricted medication : JOSÉ MIGUEL LEE Investigati 2020- No 1g 1 g, IV Un swapnil onal Drug- 09-19 Infusion, ity of tranexamic 21:45: 02:59 ONCE, 1 [place] acid 1 gram 00 :47 dose, Tue Med ical or placebo 09/20/19 at [facility] in [place] 50 mL 1645
Pr incipal investigat or: ERLINDA VALENZUELA metoclopram 2019- No 10mg 10 mg, IV Univers emile HCl 09-19 Piggyback, ity o f (REGLAN) 10 17:30: 17:54 ONCE, 1 [place] mg in NaCl 00 :00 dose, Tue Medi daisy 0.9% (NS) 09/20/19 at [facility] piggyback 1230, 50 mL famotidine 2019- No [...] 5 Medical (NS) 250 mL mg/kg ?94 [facility] IV infusion kg Adjusted weight), IV Infusion, O.R. HOLDING ONCE, 1 dose, Starting 09/20/19 at 1126, Until Discontinu ed, 250 mL
Reas on for Anti-Infec tive: Surgical Prophylaxi s
Surgi daisy Prophylaxi s: DRUM SANDER
Duration of therapy: within 24 hours of surgery lactated 2019- 2020- No 1000mL at 125 Univ ers ringers IV 09-1911 mL/hr, ity of infusion 16:00: 02:59 1,000 [...] mg 09/20/19 at Branch 1100, Routine sodium 2020-0 2020- No 30mL 30 mL, Univers citrate-cit 09-19 Oral, ity of shana acid 15:53: 22:23 PRE-PROCED [place] (BICITRA) 42 :00 URE ONCE, Medic al 500-334 1 dose, Branch mg/5 mL Starting solution 30 Tue mL 09/20/19 at 1053, Until [place] 09/22/19 at 2359, Routine, [facility] Yes [id number] 100mg Take 5 mL Univers 100 mg/5 mL 2-31 by mouth ity of solution 00:00: every 4 [place] 00 (four) [facility] Yes [id number] 100mg Take 5 mL Univers 100 mg/5 mL 2-31 by mouth ity of solution 00:00: every 4 [place] 00 (four) [facility]. [facility] Yes [id number] 100mg Take 5 mL Univers 100 mg/5 mL 2-31 by mouth ity of solution 00:00: every 4 [place] 00 (four) [facility]. [facility] Yes [id number] 100mg Take 5 mL Univers 100 mg/5 mL 2-31 by mouth ity of solution 00:00: every 4 [place] 00 (four) [facility]. [facility] Yes [id number] 100mg Take 5 mL Univers 100 mg/5 mL 2-31 by mouth ity of solution 00:00: every 4 [place] 00 (four) [facility]. [facility] Yes [id number] 100mg Take 5 mL Univers 100 mg/5 mL 2-31 by mouth ity of solution 00:00: every 4 [place] 00 (four) [facility]. [facility] Yes [id number] 100mg Take 5 mL Univers 100 mg/5 mL 2-31 by mouth ity of solution 00:00: every 4 [place] 00 (four) [facility]. [facility] Yes [id number] 100mg Take 5 mL Univers 100 mg/5 mL 2-31 by mouth ity of solution 00:00: every 4 [place] 00 (four) Medical hours. Branch danyaiFENesin 2018- Yes [id number] 100mg Take 5 mL Univers 100 mg/5 mL 2-31 by mouth ity of solution 00:00: every 4 [place] 00 (four) Medical hours. Branch danyaiFENesin 2018- Yes [id number] 100mg Take 5 mL Univers 100 mg/5 mL 2-31 by mouth ity of solution 00:00: every 4 [place] 00 (four) Medical hours. Branch danyaiFENesin 2018- Yes [id number] 100mg Take 5 mL Univers 100 mg/5 mL 2-31 by mouth ity of solution 00:00: every 4 [place] 00 (four) Medical hours. Branch danyaiFENesin 2018- Yes [id number] 100mg Take 5 mL [facility] 100 mg/5 mL 2-31 by mouth ity of solution 00:00: every 4 [place] 00 (four) Medical hours. [place] danyaiFENesin 2018-07 Yes [id number] 100mg Take 5 mL Univers 100 mg/5 mL 2-31 by mouth ity of solution 00:00: every 4 [place] 00 (four) Medical hours. [place] danyaiFENesin 2018-07 Yes [id number] 100mg Take 5 mL Univers 100 mg/5 mL 2-31 by mouth ity of solution 00:00: every 4 [place] 00 (four) Medical hours. [place] danyaiFENesin 2018-07 2020- No [id number] 100mg Take 5 mL Univers 100 mg/5 mL 2-31 03-12 by mouth ity of solution 00:00: 00:00 every 4 [place] 00 :00 (four) Medical [facility]. [facility] Take by Uni vers (ROBITUSSIN 7-17 mouth. ity of CHEST 15:31: [place] CONGESTION 10 Medical ORAL) [facility] Take by Uni vers (ROBITUSSIN 7-17 mouth. ity of CHEST 15:31: [place] CONGESTION 10 Medical ORAL) Branch aifenesin Yes Take by Uni vers (ROBITUSSIN 7-17 mouth. ity of CHEST 15:31: [place] CONGESTION 10 Medical ORAL) Branch aifenesin Yes Take by Uni vers (ROBITUSSIN 7-17 mouth. ity of CHEST 15:31: [place] CONGESTION 10 Medical ORAL) Branch aifenesin 2019-0 Yes Take by Uni vers (ROBITUSSIN 7-17 mouth. ity of CHEST 15:31: [place] CONGESTION 10 Medical ORAL) [facility] Take by Uni vers (ROBITUSSIN 7-17 mouth. ity of CHEST 15:31: [place] CONGESTION 10 Medical ORAL) Branch [facility] 0 Yes Take by Uni vers (ROBITUSSIN 7-17 mouth. ity of CHEST 15:31: [place] CONGESTION 10 Medical ORAL) Branch [facility] 0 Yes Take by Uni vers (ROBITUSSIN 7-17 mouth. ity of CHEST 15:31: [place] CONGESTION 10 Medical ORAL) Branch [facility] 0 Yes Take by Uni vers (ROBITUSSIN 7-17 mouth. ity of CHEST 15:31: [place] CONGESTION 10 Medical ORAL) Branch [facility] 0 Yes Take by Uni vers (ROBITUSSIN 7-17 mouth. ity of CHEST 15:31: [place] CONGESTION 10 Medical ORAL) Branch [facility] Yes Take by Uni vers (ROBITUSSIN 7-17 mouth. ity of CHEST 15:31: [place] CONGESTION 10 Medical ORAL) Branch [facility] 0 Yes Take by Uni vers (ROBITUSSIN 7-17 mouth. ity of CHEST 15:31: [place] CONGESTION 10 Medical ORAL) Branch [facility] 0 Yes Take by Uni vers (ROBITUSSIN 7-17 mouth. ity of CHEST 15:31: [place] CONGESTION 10 Medical ORAL) Branch [facility] 0 Yes Take by Uni vers (ROBITUSSIN 7-17 mouth. ity of CHEST 15:31: [place] CONGESTION 10 Medical ORAL) Branch [facility] 0 Yes Take by Uni vers (ROBITUSSIN 7-17 mouth. ity of CHEST 15:31: [place] CONGESTION 10 Medical ORAL) Branch [facility] 0 Yes Take by Uni vers (ROBITUSSIN 7-17 mouth. ity of CHEST 15:31: [place] CONGESTION 10 Medical ORAL) Branch [facility] 0 Yes Take by Uni vers (ROBITUSSIN 7-17 mouth. ity of CHEST 15:31: [place] CONGESTION 10 Medical ORAL) Branch [facility] 0 Yes Take by Uni vers (ROBITUSSIN 7-17 mouth. ity of CHEST 15:31: [place] CONGESTION 10 Medical ORAL) Branch Immunizations Ordered Filled Immunization Date Status Comments [facility] e Immunization Name Name TDAP (ADACEL) [...] (ADACEL) 2019-07-21 Completed University of VACCINE 00:00:00 [place] [facility] TDAP (ADACEL) 2019-07-21 Completed University of VACCINE 00:00:00 [place] [facility] TDAP (ADACEL) 2019-07-21 Completed University of VACCINE 00:00:00 [place] [facility] TDAP (ADACEL) 2019-07-21 Completed University of VACCINE 00:00:00 [place] [facility] TDAP (ADACEL) 2019-07-21 Completed University [...] (ADACEL) 2019-07-21 Completed University of VACCINE 00:00:00 [place] [facility] TDAP (ADACEL) 2019-07-21 Completed University of VACCINE 00:00:00 [place] [facility] TDAP (ADACEL) 2019-07-21 Completed University of VACCINE 00:00:00 [place] [facility] TDAP (ADACEL) 2019-07-21 Completed University of VACCINE 00:00:00 [place] [facility] TDAP (ADACEL) 2019-07-21 Completed University of VACCINE 00:00:00 [place] [facility] TDAP (ADACEL) 2019-07-21 Completed University of VACCINE 00:00:00 [place] [facility] TDAP (ADACEL) 2019-07-21 Completed University of VACCINE 00:00:00 [place] [facility] TDAP (ADACEL) 2019-07-21 Completed University of VACCINE 00:00:00 [facility] Branch TDAP (ADACEL) 2019-07-21 Completed University of VACCINE 00:00:00 [facility] Branch TDAP (ADACEL) 2019-07-21 Completed University of VACCINE 00:00:00 [facility] Branch TDAP (ADACEL) 2019-07-21 Completed University of VACCINE 00:00:00 [place] [facility] TDAP (ADACEL) 2019-07-21 Completed University of VACCINE 00:00:00 [place] [facility] TDAP (ADACEL) 2019-07-21 Completed University of VACCINE 00:00:00 [facility] Branch TDAP (ADACEL) 2019-07-21 Completed University of VACCINE 00:00:00 [facility] Branch TDAP (ADACEL) 2019-07-21 Completed University of VACCINE 00:00:00 [facility] Branch TDAP (ADACEL) 2019-07-21 Completed University of VACCINE 00:00:00 [facility] Vital Signs Vital Name Observation Time Observation Value Comments Source Systolic blood 2020-08-09 15:08:00 127 mm[Hg] Univer sity of pressure [facility] Diastolic blood 2020-08-09 15:08:00 80 mm[Hg] Unive rsity of pressure [facility] Heart rate 2020-08-09 15:08:00 112 [facility] [place] [facility] Body temperature 2020-08-09 15:08:[address] [facility] Res[facility] rate 2020-08-09 15:08:00 16 /min [facility] Body height 2020-08-09 15:08:00 164.6 cm Universi ty [facility] [place] [facility] Body weight 2020-08-09 15:08:00 129.956 kg [facility] [place] [facility] BMI 2020-08-09 15:08:00 47.97 kg/m2 [facility] [place] [facility] Systolic blood 2020-08-09 15:08:00 127 mm[Hg] Univer sity of pressure [place] [facility] Diastolic blood 2020-08-09 15:08:00 80 mm[Hg] Unive rsity of pressure [place] [facility] Heart rate 2020-08-09 15:08:00 112 /min [facility] [place] [facility] Body temperature 2020-08-09 15:08:00 36.33 Qian Univ ersity of [place] [facility] Respiratory rate 2020-08-09 15:08:00 16 /min Univ ersity of [place] [facility] Body height 2020-08-09 15:08:00 164.6 cm [facility] [place] [facility] Body weight 2020-08-09 15:08:00 129.956 kg [facility] [place] [facility] BMI 2020-08-09 15:08:00 47.97 kg/m2 [facility] [place] [facility] Systolic blood 2020-04-06 13:20:00 115 mm[Hg] Univer sity of pressure [place] [facility] Diastolic blood 2020-04-06 13:20:00 75 mm[Hg] Unive rsity of pressure [place] [facility] Heart rate 2020-04-06 13:20:00 71 /min [facility] [place] [facility] Body temperature 2020-04-06 13:20:00 36.78 Qian Univ ersity of [place] [facility] Respiratory rate 2020-04-06 13:20:00 16 /min Univ ersity of [place] [facility] Body height 2020-04-06 13:20:00 162.6 cm [facility]i [facility] [place] [facility] Body weight 2020-04-06 13:20:00 127.325 kg [facility]i [facility] [place] [facility] BMI 2020-04-06 13:20:00 48.18 kg/m2 [facility] [place] [facility] Systolic blood 2020-02-23 13:24:00 122 mm[Hg] Univer sity of pressure [place] [facility] Diastolic blood 2020-02-23 13:24:00 71 mm[Hg] Unive rsity of pressure [place] [facility] Heart rate 2020-02-23 13:24:00 64 /min [facility]i [facility] [place] [facility] Body temperature 2020-02-23 13:24:00 36.61 Qian Univ ersity of [place] [facility] Respiratory rate 2020-02-23 13:24:00 16 /min Univ ersity of [place] [facility] Body height 2020-02-23 13:24:00 162.6 cm [facility]i [facility] [place] [facility] Body weight 2020-02-23 13:24:00 127.574 kg [facility] [place] [facility] BMI 2020-02-23 13:24:00 48.28 kg/m2 [facility] [place] [facility] Systolic blood 2020-02-09 13:45:00 106 mm[Hg] Univer sity of pressure [place] [facility] Diastolic blood 2020-02-09 13:45:00 75 mm[Hg] Unive rsity of pressure [place] [facility] Heart rate 2020-02-09 13:45:00 83 /min [facility]i [facility] [place] [facility] Body temperature 2020-02-09 13:45:00 36.44 Qian Univ ersity of [place] [facility] Respiratory rate 2020-02-09 13:45:00 16 /min Univ ersity of [place] [facility] Body height 2020-02-09 13:45:00 162.6 cm [facility]i [facility] [place] [facility] Body weight 2020-02-09 13:45:00 129.36 kg [facility] [place] [facility] BMI 2020-02-09 13:45:00 48.95 kg/m2 [facility] [place] [facility] Systolic blood 2020-02-02 14:20:00 132 mm[Hg] Univer sity of pressure [place] [facility] Diastolic blood 2020-02-02 14:20:00 82 mm[Hg] Unive rsity of pressure [place] [facility] Heart rate 2020-02-02 14:20:00 72 /min [facility]i [facility] [place] [facility] Body temperature 2020-02-02 14:20:00 36.67 Qian Univ ersity of [place] [facility] Respiratory rate 2020-02-02 14:20:00 16 /min Univ ersity of [place] [facility] Body height 2020-02-02 14:20:00 162.6 cm [facility]i [facility] [place] [facility] Body weight 2020-02-02 14:20:00 131.118 kg [facility]i [facility] [place] [facility] BMI 2020-02-02 14:20:00 49.62 kg/m2 [facility] [place] [facility] Systolic blood 2019-11-15 14:00:00 116 mm[Hg] Univer sity of pressure [place] [facility] Diastolic blood 2019-11-15 14:00:00 75 mm[Hg] Unive rsity of pressure [place] [facility] Heart rate 2019-11-15 14:00:00 76 /min [facility]i [facility] [place] [facility] Body temperature 2019-11-15 14:00:00 36.89 Qian Univ ersity of [place] [facility] Respiratory rate 2019-11-15 14:00:00 16 /min Univ ersity of [place] [facility] Body height 2019-11-15 14:00:00 162.6 cm [facility]i [facility] [place] [facility] Body weight 2019-11-15 14:00:00 135.739 kg [facility] [place] [facility] BMI 2019-11-15 14:00:00 51.37 kg/m2 [facility] [place] [facility] Systolic blood 2019-09-27 16:12:00 121 mm[Hg] Univer sity of pressure [place] [facility] Diastolic blood 2019-09-27 16:12:00 83 mm[Hg] Unive rsity of pressure [place] [facility] Heart rate 2019-09-27 16:12:00 86 /min [facility]i [facility] [place] [facility] Body temperature 2019-09-27 16:12:00 36.44 Qian Univ ersity of [place] [facility] Respiratory rate 2019-09-27 16:12:00 16 /min Univ ersity of [place] [facility] Body height 2019-09-27 16:12:00 162.6 cm [facility]i [facility] [place] [facility] Body weight 2019-09-27 16:12:00 144.896 kg [facility] [place] [facility] BMI 2019-09-27 16:12:00 54.83 kg/m2 [facility] [place] [facility] Systolic blood 2019-09-22 19:44:00 117 mm[Hg] Univer sity of pressure [place] [facility] Diastolic blood 2019-09-22 19:44:00 75 mm[Hg] Unive rsity of pressure [place] [facility] Heart rate 2019-09-22 19:44:00 95 /min [facility]i [facility] [place] [facility] Body temperature 2019-09-22 19:44:00 36.78 Qian Univ ersity of [place] [facility] Respiratory rate 2019-09-22 19:44:00 18 /min Univ ersity of [facility] Oxygen saturation in 2019-09-22 19:44:00 98 /min University Arterial blood by [facility] Pulse oximetry Branch Body height 2019-09-20 15:41:00 162.6 cm [facility] ty [facility] Body weight 2019-09-20 15:41:00 152.862 kg [facility] BMI 2019-09-20 15:41:00 57.85 kg/m2 [facility] Systolic blood 2019-09-14 14:16:00 134 mm[Hg] Univer sity of pressure [facility] Diastolic blood 2019-09-14 14:16:00 89 mm[Hg] Unive rsity of pressure [facility] Heart rate 2019-09-14 14:16:00 87 /min [facility] Body temperature 2019-09-14 14:16:00 36.56 Qian Univ ersity of [facility] Respiratory rate 2019-09-14 14:16:00 16 /min Univ ersity of [facility] Body height 2019-09-14 14:16:00 162.6 cm [facility] Body weight 2019-09-14 14:16:00 149.29 kg [facility] BMI 2019-09-14 14:16:00 56.49 kg/m2 [facility] Systolic blood 2019-09-08 15:34:00 131 mm[Hg] Univer sity of pressure [facility] Diastolic blood 2019-09-08 15:34:00 83 mm[Hg] Unive rsity of pressure [facility] Heart rate 2019-09-08 15:34:00 85 /min [facility] Body temperature 2019-09-08 15:34:00 36.11 Qian Univ ers[facility] of [facility] Respiratory rate 2019-09-08 15:34:00 16 /min Univ ersity of [facility] Body height 2019-09-08 15:34:00 162.6 cm [facility] Body weight 2019-09-08 15:34:00 149.007 kg [facility] BMI 2019-09-08 15:34:00 56.39 kg/m2 [facility] Systolic blood 2019-09-01 14:31:00 92 mm[Hg] Univer sity of pressure [facility] Diastolic blood 2019-09-01 14:31:00 64 mm[Hg] Unive rsity of pressure [facility] Heart rate 2019-09-01 14:25:00 81 /min [facility] Body temperature 2019-09-01 14:25:00 36.22 Qian Univ [facility] Respiratory rate 2019-09-01 14:25:00 16 /min Univ [facility] Body height 2019-09-01 14:25:00 162.6 cm [facility] Body weight 2019-09-01 14:25:00 147.589 kg [facility] BMI 2019-09-01 14:25:00 55.85 kg/m2 [facility] Systolic blood 2019-08-17 17:31:00 118 mm[Hg] Univer sity of pressure [facility] Diastolic blood 2019-08-17 17:31:00 74 mm[Hg] Unive rsity of pressure [facility] Heart rate 2019-08-17 17:20:00 120 /min [facility] Body temperature 2019-08-17 17:20:00 36.67 Qian Univ [facility] Respiratory rate 2019-08-17 17:20:00 16 /min Univ [facility] Body height 2019-08-17 17:20:00 162.6 cm [facility] Body weight 2019-08-17 17:20:00 147.476 kg [facility] BMI 2019-08-17 17:20:00 55.81 kg/m2 [facility] Systolic blood 2019-08-04 15:33:00 137 mm[Hg] Univer sity of [facility] Diastolic blood 2019-08-04 15:33:00 90 mm[Hg] Unive rsity of pressure [facility] Heart rate 2019-08-04 15:33:00 92 /min [facility] Body temperature 2019-08-04 15:33:00 36.83 Qian Univ [facility] Respiratory rate 2019-08-04 15:33:00 16 /min Univ [facility] Body height 2019-08-04 15:33:00 162.6 cm [facility] Body weight 2019-08-04 15:33:00 144.697 kg [facility] BMI 2019-08-04 15:33:00 54.76 kg/m2 [facility] Systolic blood 2019-03-21 14:31:00 130 mm[Hg] Univer [facility]ity of [facility] Diastolic blood 2019-03-21 14:31:00 80 mm[Hg] Unive rsity of [facility] Heart rate 2019-03-21 14:31:00 89 /min [facility] Body temperature 2019-03-21 14:31:00 36.39 Qian Univ [facility] Respiratory rate 2019-03-21 14:31:00 16 /min Univ [facility] Body weight 2019-03-21 14:31:00 138.064 kg [facility] BMI 2019-03-21 14:31:00 52.25 kg/m2 [facility] Systolic blood 2019-02-24 15:04:00 128 mm[Hg] Univer sity of [facility] Diastolic blood 2019-02-24 15:04:00 80 mm[Hg] Unive rsity of pressure [facility] Heart rate 2019-02-24 15:04:00 75 /min [facility] Body temperature 2019-02-24 15:04:00 36.61 Qian Univ [facility] Respiratory rate 2019-02-24 15:04:00 18 /min Univ [facility] Body height 2019-02-24 15:04:00 162.6 cm [facility] Body weight 2019-02-24 15:04:00 138.517 kg [facility] BMI 2019-02-24 15:04:00 52.42 kg/m2 [facility] Systolic blood 2019-01-26 15:20:00 114 mm[Hg] Univer sity of [facility] Diastolic blood 2019-01-26 15:20:00 62 mm[Hg] Unive rsity of [facility] Heart rate 2019-01-26 15:15:00 117 /min [facility] Body temperature 2019-01-26 15:15:00 36.94 Qian [facility] Respiratory rate 2019-01-26 15:15:00 16 /min [facility] Body height 2019-01-26 15:15:00 162.6 cm [facility] Body weight 2019-01-26 15:15:00 136.589 kg [facility] BMI 2019-01-26 15:15:00 51.69 kg/m2 [facility] Procedures Procedure Date / Time Performing Clinician Source Performed [id number] 2021-05-28 00:00:00 EKHOB [facility] DISMISSAL OF PATIENT 2020-08-09 06:01:00 Doctor Unassigned, [facility] CORRESPONDENCE [place] [facility] POCT TEST 2020-02-09 13:59:00 Lindy Godwin [facility] POCT TEST 2020-02-02 14:21:00 Lindy Godwin [facility] ASSIGNMENT OF BENEFITS 2020-02-02 13:54:27 Doctor Unassigned, [place] [facility] [place] [facility] POCT TEST 2019-11-15 14:06:00 Yolanda Ruano [facility] CBC WITH DIFFERENTIAL 2019-09-21 07:51:00 Vincent Mukherjee [facility] CORD GAS 2019-09-20 23:55:00 Kortney Molina [facility] SECTION 2019-09-20 22:13:00 Arleen Pineda [facility] URINALYSIS 2019-09-20 16:33:00 Kortney Molina [facility] PROTEIN CREAT RATIO URINE 2019-09-20 16:33:00 [facility] (ASPARTATE AMINO 2019-09-20 16:32:[address] [facility] TRANSFER) Medical Branch CREATININE 2019-09-20 16:32:00 Richy Molinahanie [facility] ALANINE AMINO 2019-09-20 16:32:00 Molina, K[facility]neyHelen [facility] TRANSFERASE(SGPT Medical Branch LACTATE DEHYDROGENASE 2019-09-20 16:32:00 Jesse [facility] URIC ACID 2019-09-20 16:32:00 Jesse [facility] CBC WITH DIFFERENTIAL 2019-09-20 16:32:00 Jesse [facility] HEPATITIS B SURFACE 2019-09-20 16:32:00 Jesse [facility] ANTIGEN [facility] GALV ONLY - SYPHILIS 2019-09-20 16:32:00 Jesse [facility] IGG/IGM [facility] PANEL IDENTIFICATION 2019-09-20 15:54:00 Jose Antonio [facility] HB ABO GROUPING 2019-09-20 15:54:00 Jose Antonio [facility] RHO (D) IMMUNE GLOBULIN 2019-09-20 15:54:00 Vincent Mukherjee [facility] HOSPITAL ADMISSION 2019-09-20 05:01:00 Doctor Unassigned, [facility] [place] [facility] POCT URINALYSIS 2019-09-14 14:17:00 Lindy Godwin [facility] POCT URINALYSIS 2019-09-08 15:35:00 Lindy Godwin [facility] POCT URINALYSIS 2019-09-01 14:27:00 Lindy Godwin [facility] PANEL IDENTIFICATION 2019-08-04 15:42:00 Lindy Godwin Un ivFormerly [facility] HB ABO GROUPING 2019-08-04 15:42:00 Lindy Godwin [facility] ANTIBODY TITER INTERPS 2019-08-04 15:42:00 Lindy Godwin [facility] POCT URINALYSIS W/O 2019-08-04 15:38:00 Lindy Godwin [facility] SPECIFIC GRAVITY [facility] POCT URINALYSIS 2019-03-21 14:33:00 Lindy Godwin [facility] PANEL IDENTIFICATION 2019-02-24 15:22:00 Rehana Hinds [facility] WORKUP, BLOOD 2019-02-24 15:22:00 Nallely Hindsunique Lopezy [facility] ANTIBODY TITER INTERPS 2019-02-24 15:22:00 Lizet Rehana Mccrary [facility] POCT URINALYSIS 2019-02-24 15:07:00 Lindy Godwin [facility] URINE CULTURE 2019-01-26 16:35:00 Lindy Godwin [facility] GC & CHLAMYDIA AMPLIFIED 2019-01-26 16:35:00 Lindy Godwin [facility] LAB ONLY PAP SMEAR-LIQUID 2019-01-26 16:35:00 Lindy Godwin [facility] PAP SMEAR-LIQUID BASED-CP 2019-01-26 16:35:00 Lindy Godwin [facility] GLUCOSE 1 HOUR POST 2019-01-26 16:23:00 Lindy Godwin [facility] CBC WITH DIFFERENTIAL 2019-01-26 16:23:00 Lindy Godwin [facility] RUBELLA SCREEN IGG 2019-01-26 16:23:00 Lindy Godwin [facility] VZV ANTIBODY SCREEN 2019-01-26 16:23:00 Lindy Godwin [facility] HEPATITIS B SURFACE 2019-01-26 16:23:00 Lindy Godwin [facility] HCV ANTIBODY 2019-01-26 16:23:00 Lindy Godwin [facility] ANTIGEN TYPING PATIENT 2019-01-26 16:23:00 Lindy Godwin [facility] PANEL IDENTIFICATION 2019-01-26 16:23:00 Lindy Godwin Un ivFormerly [facility] WORKUP, BLOOD 2019-01-26 16:23:00 Lindy Godwin [facility] ANTIBODY TITER INTERPS 2019-01-26 16:23:00 Lindy Godwin [facility] HIV 1/2 AG-AB WITH REFLEX 2019-01-26 16:23:00 Lindy Godwin [facility] GALV ONLY - SYPHILIS 2019-01-26 16:23:00 [facility] I[facility]IGM [facility] POCT TEST 2019-01-26 15:27:00 Lindy Godwin Uni versity [facility] POCT URINALYSIS W/O 2019-01-26 15:27:00 [facility] SPECIFIC Formerly [facility] Encounters Start End Encounter Admission Attending Care Care Encounter Source Date/Time Date/Time Type Type Clinicians Facility Department ID 2021-05-09 Outpatient P [facility] MCKENNA [id number] Univers 13:32:45 [facility] 2021-05-29 2021-05-30 Inpatient EL Ekopheliase, [facility]AB[facility] SURG [id number] [facility] 10:48:00 13:18:00 [place] 18 [facility] 2021-05-21 2021-05-21 Outpatient Ekhaese, HCACL LABO [id number] [facility] 17:32:00 17:32:00 [place] 16 [facility] 2021-04-04 2021-04-04 Inpatient EL Ekopheliase, HCABM DAYS [id number] [facility] 16:00:00 08:00:00 [place] 91 [facility] 2021-03-29 2021-03-29 Outpatient Ekhaese, [facility]AC[facility] LABO [id number] [facility] 11:40:00 11:40:00 [place] 34 [facility] 2021-02-21 2021-02-21 Inpatient EL Kadiyala, HCAPM DAYS [id number] [facility] 11:01:00 11:01:00 Phil[place] 07 [facility] 2021-01-23 2021-01-23 Outpatient EL Ekopheliase, [facility]ABM DIAB [id number] [facility] 09:14:00 09:14:00 Obonor[place] 56 [facility] 2020-11-07 2020-11-07 [facility] [id number] Univers 08:15:00 08:15:00 LINDY ity o f [facility] 2020-08-09 2020-08-09 Office [facility] [id number] 08:55:29 10:04:43 Visit Lindy C DRUM SANDER 350.1.13.10 REGIONAL 4.2.7.2.686 MATERNAL [phone] & CHILD [address] [place] [address] 2020-08-09 2020-08-09 Office [facility] [id number] Univers 08:55:29 10:04:43 Visit [facility] C DRUM SANDER 350.1.13.10 ity of [facility] [id number] Han as MATERNAL [id number] [facility] & [address] 2020-08-09 2020-08-09 [facility] [id number] Univers 09:15:00 09:15:00 LINDY noyolay o [facility] 2020-08-09 2020-08-09 Orders Doctor CHANDA 1.2.840.114 [id number] Univers 00:00:00 00:00:00 Only Unassigned, BJ 350.1.13.10 ity of [place] [facility] 4.2.7.2.686 Han as [phone] [address] 2020-04-06 2020-04-06 [facility] [id number] Univers 08:07:21 08:42:27 Visit Lindy C DRUM SANDER 350.1.13.10 ity of [facility] 4.2.7.2.686 Han as MATERNAL [id number] [facility] & CHILD [address] [place] [address] 2020-04-06 2020-04-06 [facility] [id number] Univers 08:15:00 08:15:00 LINDY ity o f [facility] 2020-02-23 2020-02-23 [facility] [id number] Univers 08:06:22 08:56:47 Visit Lindy C DRUM SANDER 350.1.13.10 ity of REGIONAL 4.2.7.2.686 Han as MATERNAL [id number] [facility] CHILD [address] [place] [address] 2020-02-23 2020-02-23 Outpatient R [facility] [id number] Univers 08:15:00 08:15:00 LINDY ity o f [facility] 2020-02-09 2020-02-09 Office [facility] [id number] Univers 08:32:42 09:40:50 Visit [facility] DRUM SANDER 350.1.13.10 ity of [facility] 4.2.7.2.686 Han as MATERNAL [id number] [facility] & [address] 2020-02-09 2020-02-09 Outpatient R [facility] [id number] Univers 08:30:00 08:30:00 LINDY ity o f [facility] 2020-02-07 2020-02-07 Outpatient R [facility] [id number] Univers 08:30:00 08:30:00 ity of [facility] 2020-02-02 2020-02-02 Office [facility] [id number] Univers 08:50:24 09:55:59 Visit [facility] DRUM SANDER 350.1.13.10 ity of [facility] 4.2.7.2.686 Han as MATERNAL [id number] [facility] & [address] 2020-02-02 2020-02-02 [facility] [id number] Univers 08:15:00 08:15:00 LINDY ity o f [facility] 2020-02-02 2020-02-02 Orders Doctor CHANDA 1.2.840.114 [id number] Univers 00:00:00 00:00:00 Only Unassigned, BJ 350.1.13.10 ity of [place] [facility] 4.2.7.2.686 Han as [phone] [address] 2020-01-17 2020-01-17 Telephone [facility] 1.2.840.114 [id number] Univers 00:00:00 00:00:00 Lindy C DRUM SANDER 350.1.13.10 ity of [facility] 4.2.7.2.686 Han as MATERNAL [id number] [facility] ical & CHILD [address] [place] [address] 2019-11-15 2019-11-15 Nurse Visit, Ang-Rmchp Nurse [facility] 1.2 .840.114 [id number] Univers 08:58:04 09:22:08 Visit Lindy Godwin DRUM SANDER 350.1.13. 10 ity of [facility] 4.2.7.2.686 Han as MATERNAL [phone] [facility] CHILD [address] [place] [address] 2019-11-15 2019-11-15 Outpatient R [facility] [id number] Univers 09:00:00 09:00:00 ity of [facility] 2019-11-02 2019-11-02 Outpatient R TATO, [facility] [id number] Univers 08:00:00 08:00:00 LINDY jones [facility] 2019-11-01 2019-11-01 [facility] 1.2.840.114 [id number] Univers 10:02:16 10:10:30 ne Visit Lindy Gayathri DRUM SANDER 350.1.13.10 ity of [facility] 4.2.7.2.686 Han as MATERNAL [id number] [facility] & CHILD [address] [place] [address] 2019-11-01 2019-11-01 Outpatient R TATO, [facility] [id number] Univers 10:00:00 10:00:00 LINDY jones [facility] 2019-10-12 2019-10-12 Telemedic [facility] 1.2.840.114 [id number] Univers 08:05:41 09:57:15 ne Visit Lindy Gayathri DR[place] S[place]ER 350.1.13.10 ity of [facility] 4.2.7.2.686 Han as MATERNAL [id number] [facility] ical & CHILD [address] [place] [address] 2019-10-12 2019-10-12 Outpatient R TATO, [facility] [id number] Univers 09:45:00 09:45:00 LINDY jones [facility] 2019-09-27 2019-09-27 Nurse Visit, Ang-Rmchp Nurse [facility] 1.2 .840.114 [id number] Univers 11:02:50 11:23:37 Visit Lindy Godwin DRUM SANDER 350.1.13. 10 ity of REGIONAL 4.2.7.2.686 Han as MATERNAL [id number] [facility] & CHILD [address] [place] [address] 2019-09-27 2019-09-27 Outpatient R AKINSIPE, [facility] [id number] Univers 11:00:00 11:00:00 LINDY gupta o f [facility] 2019-09-20 2019-09-22 Hospital Rachel ARMAS 1.2.840.114 [id number] Univers 10:19:00 16:00:00 Encounter Edwarmahsasukhjinder LORENZO 350.1.13.10 ity of [facility] 4.2.7.2.686 Han as [phone] [address] 2019-09-21 2019-09-21 Outpatient R AKINSIPE, [facility] [id number] Univers 08:00:00 08:00:00 LINDY jones [facility] 2019-09-20 2019-09-20 Orders Doctor CHANDA 1.2.840.114 [id number] Univers 00:00:00 00:00:00 Only Unassigned, BJ 350.1.13.10 ity of [place] [facility] 4.2.7.2.686 Han as [phone] [address] 2019-09-14 2019-09-14 Routine Akinsipe, [facility] 1.2.026.900 [id number] Univers 07:59:23 08:34:31 Lindy Trinh DRUM SANDER 350.1.13.10 ity of Visit [facility] 4.2.7.2.686 Han as MATERNAL [id number] [facility] & CHILD [address] [place] [address] 2019-09-14 2019-09-14 Outpatient R AKINSIPE, [facility] [id number] Univers 08:00:00 08:00:00 LINDY jones [facility] 2019-09-08 2019-09-08 Routine Akinsipe, [facility] [id number] Univers 08:56:52 09:51:11 Lindy C DRUM SANDER 350.1.13.10 ity of Visit REGIONAL 4.2.7.2.686 Han as MATERNAL [id number] [facility] & CHILD [address] [place] [address] 2019-09-08 2019-09-08 Outpatient R TATO [facility] [id number] Univers 09:00:00 09:00:00 LINDY ity o f [facility] 2019-09-02 2019-09-02 [facility] [place] 1.2.840.114 [id number] Univers 00:00:00 00:00:00 Lindy C DRUM SANDER 350.1.13.10 ity of REGIONAL 4.2.7.2.686 Han as MATERNAL [id number] [facility] & CHILD [address] [place] [address] 2019-09-01 2019-09-01 Brood Hatchery Manager [facility] 1.2 .840.114 [id number] Univers 09:04:51 09:34:51 Visit Akinsiaureliano Lindy C DRUM SANDER 350.1.13. 10 ity of [place] Patricio REGIONAL 4.2.7.2.686 [place] MATERNAL [id number] [facility] & CHILD [address] [facility] [place] 2019-09-01 2019-09-01 Routine Rupertoaureliano, [facility] 1.2.205.682 [id number] Univers 07:51:10 09:03:14 Lindy C DRUM SANDER 350.1.13.10 ity of Visit REGIONAL 4.2.7.2.686 Han as MATERNAL [id number] [facility] & CHILD [address] [place] [address] 2019-08-17 2019-08-17 Routine Akinpe, [facility] [id number] Univers 10:53:54 11:43:25 Lindy C DRUM SANDER 350.1.13.10 ity of Visit REGIONAL 4.2.7.2.686 Han as MATERNAL [id number] [facility] & CHILD [address] [place] [address] 2019-08-04 2019-08-09 Routine Akinsipe, [facility] [id number] Univers 09:14:38 10:20:44 Lindy C DRUM SANDER 350.1.13.10 ity of Visit REGIONAL 4.2.7.2.686 Han as MATERNAL [id number] [facility] & CHILD [address] [place] [address] 2019-08-09 2019-08-09 Telephone [facility] 1.2.840.114 [id number] Univers 00:00:00 00:00:00 Lindy C DRUM SANDER 350.1.13.10 ity of REGIONAL 4.2.7.2.686 Han as MATERNAL [id number] [facility] & CHILD [address] [place] [address] 2019-08-09 2019-08-09 Abstract [facility] 1.2.840.114 [id number] Univers 00:00:00 00:00:00 Lindy C DRUM SANDER 350.1.13.10 ity of REGIONAL 4.2.7.2.686 Han as MATERNAL [id number] [facility] & CHILD [address] [place] [address] 2019-08-05 2019-08-05 Telephone [facility] 1.2.840.114 [id number] Univers 00:00:00 00:00:00 Lindy C DRUM SANDER 350.1.13.10 ity of REGIONAL 4.2.7.2.686 Han as MATERNAL [id number] [facility] & CHILD [address] [place] [address] 2019-07-11 2019-07-12 Outpatient RICHARD PIERCE MCKENNA [id number] Univers 20:27:51 03:01:00 CHRISTINA gupta [facility] 2019-03-21 2019-03-21 Routine Faculty, Huan [facility] ale[facility]andra [facility] 1.2 .840.114 [id number] Univers 09:23:05 10:17:43 Mike Mace DRUM SANDER 350.1.13.10 ity of Visit REGIONAL 4.2.7.2.686 Han as MATERNAL [id number] [facility] & CHILD [address] [place] [address] 2019-03-07 2019-03-07 Telephone [facility] [id number] Univers 00:00:00 00:00:00 Huan-chp-N DRUM SANDER 350.1.13.10 ity of p/High REGIONAL 4.2.7.2.686 Han as MATERNAL [phone] Med ical & CHILD [address] [place] [address] 2019-03-04 2019-03-04 Case CHANDA Grajeda 1.2.840.114 [id number] Univers 00:00:00 00:00:00 Management Aubreeihsan OLIVOY 350.1.13.10 ity of [facility] 4.2.7.2.686 Han as [id number] [address] 2019-02-25 2019-02-25 Telephone Rupertoaureliano [facility] 1.2.840.114 [id number] Univers 00:00:00 00:00:00 Lindy Trinh DRUM SANDER 350.1.13.10 ity of REGIONAL 4.2.7.2.686 Han as MATERNAL [id number] [facility] ical & CHILD [address] [place] [address] 2019-02-24 2019-02-24 Routine Risk, Civ-Dpabl-Pb/High [facility] 1. 2.840.114 [id number] Univers 09:47:59 10:32:25 Rehana Hinds DRUM SANDER 350.1.13.10 ity of Visit REGIONAL 4.2.7.2.686 Han as MATERNAL [id number] [facility] ical & CHILD [address] [place] [address] 2019-02-17 2019-02-17 Abstract Rupertoaureliano [facility] 1.2.840.114 [id number] Univers 00:00:00 00:00:00 Lindy Trinh DRUM SANDER 350.1.13.10 ity of REGIONAL 4.2.7.2.686 Han as MATERNAL [id number] [facility] ical & CHILD [address] [place] [address] 2019-02-16 2019-02-16 Brood Hatchery Manager Ultrasound, Janeyyamil [facility] 1.2 .840.114 [id number] Univers 10:03:47 10:39:43 Visit Randolph Szymanski DRUM SANDER 350.1.13.10 ity of REGIONAL 4.2.7.2.686 Han as MATERNAL [id number] Med ical & CHILD [address] [facility] [place] 2019-02-09 2019-02-09 Telephone Tato [facility] 1.2.840.114 [id number] Univers 00:00:00 00:00:00 Lindy C DRUM SANDER 350.1.13.10 ity of REGIONAL 4.2.7.2.686 Han as MATERNAL [id number] Med ical & CHILD [address] [facility] [place] 2019-01-26 2019-02-08 Initial Rupertoaureliano [facility] 1.2.671.044 [id number] [facility] 09:47:56 13:19:30 Lindy C DRUM SANDER 350.1.13.10 ity of Visit REGIONAL 4.2.7.2.686 Hna as MATERNAL [id number] [facility] CHILD [address] [place] [address] Results Test Description Test Time Test Comments [...] (test code = MDIFF) NO BASIC METABOLIC [id number] 05:40:00 Test Item Value Reference Range Interpretation [...] >3 months. [Automated mess age] The system Vault Dragon generated this result transmitted ref erence range: >=60. Th e reference range was not used to int erpret this result as normal/abnormal . CREATININE (test 0.70 mg/dL 0.55-1.02 N Note harper ge in code = CREAT) reference rang e due to change in reagent. 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 It is an Emergency Use Authorization ( EUA) testauthorized by the U.S. FDA. Novel Coronavirus 21:37:00 Test Item Value Reference Range Interpretation Comments Novel Coronavirus Negative Negative Positive r esults are 2019 Inhouse (test indicativ e of the presence code = UJZEL73HO) ofSARS-CoV -2 RNA, clinical correlation wit h [...] det ection of nucleic acids f rom [id number]-YoM-3 v irus and diagnosis of SA RS-CoV-2 virusinfection. It is an Emergency Use Authorization ( EUA) testauthorized by the U.S. FDA. HCG SERUM [id number] 14:33:00 Test Item Value Reference Range Interpretation Comments HCG SERUM QUAL (test NEGATIVE NEGATIVE This HC GQL test is NOT code = HCGQL) applicable for MALE patients.Check with nurse about probable order error.If Tumor Marker Test needed, nu rse should order test "HCG TU"(Test #550.50409)---- - COMPREHENSIVE METABOLIC [id number] 12:50:00 Test Item Value Reference Range Interpretation [...] >3 months. [Automated mess age] The system Vault Dragon generated this result transmit ling reference range [...] due ALKP) to change in reagent. PROTHROMBIN [id number] 12:31:00 Test Item Value Reference Range Interpretation [...] ion INR range Pulmonary embol ism treatment (2.0-3.0)Venous thrombosis treatmentVenous thrombosis prophylaxis (hi gh risk surgery)Prevent ion of systemic emboli sm from: Acute myocardial infa rction Valvular heart disease Atrial fibrillation Mechanical pros thetic heart valves (2.5-3.5) IS PATIENT ON ANTICOAGULANTS? NTHROMBOPLASTIN TIME [id number] 12:31:00 Test Item Value Reference Range Interpretation Comments THROMBOPLASTIN TIME PARTIAL 39.8 seconds 23.0-37.0 H (test code = PTT) IS PATIENT ON ANTICOAGULANTS? NCBC W/AUTO [id number] 12:20:00 Test Item Value Reference Range Interpretation [...] DIFF REQUIRED (test code NO = MDIFF) STOMACH,[id number] 13:40:00 Test Item Value Reference Range Interpretation Comments STOMACH,BIOPSY (test code = STOMBX) RUN DATE: 04/08/21 [facility] PAGE 1 RUN TIME: 1341 Specimen Inquiry RUN USER: INTERFACE PATIENT: ANNIA MOSQUERA LOC: [facility] #: [id number] AGE/SX: 30/F ROOM: RE04[facility]04[facility]21[facility] DR: Enrike Yeboah DO : 89 BED: DIS: [place] [facility] [place]C #: [id number] RECD: 04/05/21 STATUS: HELEN JANNIE #: [id number] CHERISE: 04/04/21-1700 [facility] DR: Enrike Yeboah DO ENTERED: 04/05/21 SP TYPE: BX STOMACH OTHR DR: ORDERED: GROSS PROCEDURES: GROSS (04/08/21-1147) TISSUES: 1. PYLORUS - COLD BX 2. [...] INTESTINAL METAPLASIA, DYSPLASIA, AND MALIGNANCY DMW/sm D [id number], 29723 MACROSCOPIC The first specimen is received in [...] CONTINUED ON NEXT PAGE RUN DATE: 04/08/21 [facility] PAGE 2 RUN TIME: 1341 Specimen Inquiry RUN USER: INTERFACE SPEC #: [id number] PATIENT: ANNIA MOSQUERA #[id number] (Continued) MACROSCOPIC (Continued) GROSS PERFORMED AT [facility] [address] [place] [address] [phone])[phone] MICROSCOPIC All of the stains, including any controls performed, stain appropriately. MICROSCOPIC PERFORMED AT [facility] [address] [place] [address] [phone] PERFORMING SITE Diagnosis performed at: [facility] [address] [place] [address] Signed SIGNATURE ON FILE Vee Garcia MD 04/08/21 1340 END OF REPORT Novel Coronavirus 16:19:00 Test Item Value Reference Range Interpretation Comments Novel Coronavirus Negative Negative Positive r esults are 2019 Inhouse (test indicativ e of the presence code = LRAJA48VD) ofSARS-CoV -2 RNA, clinical correlation wit h [...] det ection of nucleic acids f rom rjfEFBN-LkE-4 v irus and diagnosis of SA RS-CoV-2 virusinfection. It is an Emergency Use Authorization ( EUA) testauthorized by the U.S. FDA. Novel Coronavirus [id number] 16:19:00 Test Item Value Reference Range Interpretation Comments Novel Coronavirus Negative Negative Positive r esults are 2019 Inhouse (test indicativ e of the presence code = LYRRT10HO) ofSARS-CoV -2 RNA, clinical correlation wit h [...] det ection of nucleic acids f rom aylUUIK-VeL-1 v irus and diagnosis of SA RS-CoV-2 virusinfection. It is an Emergency Use Authorization ( EUA) testauthorized by the U.S. FDA. COMPREHENSIVE METABOLIC [id number] 12:52:00 Test Item Value Reference Range Interpretation [...] >3 months. [Automated mess age] The system Vault Dragon generated this result transmit ling reference range [...] due ALKP) to change in reagent. URINALYSIS [id number] 12:39:00 Test Item Value Reference Range Interpretation [...] FEW MUCU) Urine Source? Clean CatchUR HCG [id number] 12:39:00 Test Item Value Reference Range Interpretation Comments UR HCG QUAL (test NEGATIVE This HCGQL test is NOT code = HCGQLU) applicable fo r MALE patients.Check with nurse about probable order error.If Tumor Marker Test needed, nu rse should order test "HCG TU"(Test #550.30766)---- - Urine Source? Clean CatchPROTHROMBIN [id number] 12:16:00 Test Item Value Reference Range Interpretation [...] ion INR range Pulmonary embol ism treatment (2.0-3.0)Venous thrombosis treatmentVenous thrombosis prophylaxis (hi gh risk surgery)Prevent ion of systemic emboli sm from: Acute myocardial infa rction Valvular heart disease Atrial fibrillation Mechanical pros thetic heart valves (2.5-3.5) IS PATIENT ON ANTICOAGULANTS? NTHROMBOPLASTIN TIME [id number] 12:16:00 Test Item Value Reference Range Interpretation Comments THROMBOPLASTIN TIME PARTIAL 36.9 seconds 23.0-37.0 N (test code = PTT) IS PATIENT ON ANTICOAGULANTS? NCBC W/AUTO [id number] 12:10:00 Test Item Value Reference Range Interpretation [...] (test code NO = MDIFF) CBC W/AUTO [id number] 14:12:00 Test Item Value Reference Range Interpretation [...] DIFF REQUIRED NO DIFF/SCN CRITERIA SLIDE R EVIEW (test code = MDIFF) CONSISTA NT WITH AUTO DIFFERENTI AL. HCG SERUM [id number] 11:50:00 Test Item Value Reference Range Interpretation Comments HCG SERUM QUAL (test SERUM NEGATIVE SCREEN NEGATIVE code = HCGQL) COVID 19 INHOUSE [id number] 11:49:00 Test Item Value Reference Range Interpretation Comments COVID 19 INHOUSE AG NEGATIVE Negative Per manu facturer, (test code = negative result s should [id number]) be treated aspr esumptive and, if inconsi stent with clinical signs andsymptoms or necessary for patient man agement, should betested with an alternative mol ecular assay. Negative resultsdo not preclude SA RS-CoV-2 infection and s hould not be usedas the s ole basis for patient man agement decisions. Nega tive results should be considered in t he context of apatient's r ecent exposures, hist ory, presence of cli nicalsigns and symptoms co nsistent with COVID-19. CBC W/AUTO [id number] 11:42:00 Test Item Value Reference Range Interpretation [...] (test code = DIFF/SCN CRITERIA MDIFF) POCT [id number] 13:59:00 Test Item Value Reference Range Interpretation Comments POCT PREG (test code = 1605) Negative On board controls acceptable with C Yes Line (test code = 3574) POCT PREG LOT # (test code = 3575) POCT PREG TEST DATE (test code = 3576) [facility] [id number] 13:59:00 Test Item Value Reference Range Interpretation Comments POCT PREG (test code = 1605) Negative On board controls acceptable with C Yes Line (test code = 3574) POCT PREG LOT # (test code = 3575) POCT PREG TEST DATE (test code = 3576) [facility] [id number] 13:59:00 Test Item Value Reference Range Interpretation Comments POCT PREG (test code = 1605) Negative On board controls acceptable with C Yes Line (test code = 3574) POCT PREG LOT # (test code = 3575) POCT PREG TEST DATE (test code = 3576) [facility] [id number] 14:22:00 Test Item Value Reference Range Interpretation Comments POCT PREG (test code = 1605) Negative On board controls acceptable with C Yes Line (test code = 3574) POCT PREG LOT # (test code = 3575) POCT PREG TEST DATE (test code = 3576) [facility] [id number] 14:22:00 Test Item Value Reference Range Interpretation Comments POCT PREG (test code = 1605) Negative On board controls acceptable with C Yes Line (test code = 3574) POCT PREG LOT # (test code = 3575) POCT PREG TEST DATE (test code = 3576) [facility] [id number] 14:06:00 Test Item Value Reference Range Interpretation Comments POCT PREG (test code = 1605) Negative On board controls acceptable with C Yes Line (test code = 3574) POCT PREG LOT # (test code = 3575) POCT PREG TEST DATE (test code = 3576) [facility]icsGAL[facility] ONLY - SYPHILIS [id number] 14:13:00 Test Item Value Reference Range Interpretation Comments Syphilis IgG/IgM (test Non-reactive Non-reactive code = 96980-7) LUTHER (test code = LUTHER) Non-reactive - No serologic evidence of T. pallidum infection. Cannot exclude incubating or early syphilis. Submit a second specimen in 2-4 weeks if syphilis is clinically suspected. Equivocal - Further testing to follow. Reactive - Further testing to follow. Lab Interpretation (test Normal code = 18990-5) [facility]icsCB WITH [id number] 09:26:00 Test Item Value Reference Range Interpretation Comments WBC (test code = See_Comment H [Automated 0390-2) message] The system which generated this result transmit ling reference range : 4.30 - 11.10 10*3/?L. The reference range was not used to interpret this result as normal/abnormal . RBC (test code = See_Comment [Automated 529-8) message] The system which generated this result [...] RDW-SD (test code = 44.3 fL 39-49.9 32124-4) RDW-CV (test code = 14.4 % 12-15.5 788-0) PLT (test code = See_Comment [Automated 777-3) message] The system which generated this result transmit ling reference range : 166 - 358 10*3/ ?L. The reference range was not u sed to interpret th is result as normal/abnormal . MPV (test code = 11.0 fL 9.5-12.9 78522-5) NRBC/100 WBC (test See_Comment [Automat ed code = 5943918670) message] The system which generated this result transmit ling reference range : 0.0 - 10.0 /100 WBCs. The reference range was not used to interpret this result as normal/abnormal . NRBC x10^3 (test code <0.01 See_Comment [Auto mated = 0369956836) message] The system which generated this result transmit ling reference range : 10*3/?L. The reference range was not used to interpret this result as normal/abnormal . GRAN MAT (NEUT) % 81.3 % (test code = 770-8) IMM GRAN % (test code 0.50 % = 2287625890) LYMPH % (test code = 10.0 % 736-9) MONO % (test code = 7.8 % 5905-5) EOS % (test code = 0.1 % 713-8) BASO % (test code = 0.3 % 706-2) GRAN MAT x10^3(ANC) 11.84 10*3/uL 1.88-7.09 H (test code = 2404920422) IMM GRAN x10^3 (test 0.08 10*3/uL 0-0.06 H code = 2486456995) LYMPH x10^3 (test code 1.46 10*3/uL 1.32-3.29 = 731-0) MONO x10^3 (test code 1.13 10*3/uL 0.33-0.92 H = 742-7) EOS x10^3 (test code = <0.03 0.03-0.39 L 711-2) BASO x10^3 (test code 0.04 10*3/uL 0.01-0.07 = 704-7) Lab Interpretation Abnormal (test code = 23937-1) [facility]icsRHO (D) IMMUNE [id number] 03:01:12 Test Item Value Reference Range Interpretation Comments RHIG CANDIDATE? No- see comment Patient i s not a (test code = candidate for R hIg- 5055) Patient is Rh Positive.Perfor med at [facility] Laboratory Services - [facility] Blood [address] [place] [address]Tquz Free: [phone] A No. [id number] [facility] ClinicsVenous Cord [id number] 00:09:00 Test Item Value Reference Range Interpretation Comments VENOUS BASE EXCESS, CORD mEq/L (test code = 8675834043) VENOUS PH, CORD (test 7.25-7.45 code = 3918004391) VENOUS PC02, CORD (test See_Comment H [Au tomated message] code = 4946888454) The syste m which generated this result transmitted ref erence range: 27 - 49 mmHg. The reference r elsi was not used to interpret this result as normal/abnor mal. VENOUS PO2, CORD (test See_Comment [Aut omated message] code = 0882569029) The syste m which generated this result transmitted ref erence range: 17 - 41 mmHg. The reference r elsi was not used to interpret this result as normal/abnor mal. VENOUS BICARBONATE, CORD See_Comment [A utomated message] (test code = 0080765782) The system which generated this result transmitted ref erence range: 12 - 29 mEq/L. The reference r elsi was not used to interpret this result as normal/abnor mal. Lab Interpretation (test Abnormal code = 20499-9) [facility] ClinicsArterial Cord [id number] 00:06:00 Test Item Value Reference Range Interpretation Comments BASE EXCESS, CORD mEq/L (test code = 0465258990) AC PH, CORD (BEAKER) 7.18-7.38 (test code = 1512033098) PC02, CORD (test code See_Comment [Auto mated message] The = 5651169159) system which g enerated this result transmit ling reference range : 32 - 66 mmHg. The refer ence range was not used to interpret this result as normal/abnormal . PO2, CORD (test code See_Comment [Autom ated message] The = 0230487985) system which g enerated this result transmit ling reference range : 10 - 30 mmHg. The refer ence range was not used to interpret this result as normal/abnormal . BICARBONATE, CORD See_Comment [Automate d message] The (test code = system which ge nerated this 4373013176) result transmit ling reference range : 17 - 27 mEq/L. The refe rence range was not used to interpret this result as normal/abnormal . [facility] ClinicsPANEL [id number] 19:06:46 ANTIBODY FMDuev-WsqUjhs-H Comment: Performed at [facility] Laboratory Services - [facility] Blood [address] [place], [place] [address]Fbdv Free: [phone] No. [id number] LABUnFort [facility] Regional Medical CenterType and Screen - ONCE STAT 2019-09-20 18:19:37 Test Item Value Reference Range Interpretation Comments ABO & RH (test code O POSITIVE Performe d at [facility] = 20) Laboratory Serv [facility] Blood [facility]3 [address] [facility] s [address]Szsf Free: [phone] A No. [id number] IAT (test code = Positive Performed a t [facility] 1185) Laboratory Serv [facility] Blood [facility]3 [address] [facility] s [address]Zzmd Free: [phone] A No. [id number] [facility] ClinicsUric Acid [id number] 18:12:00 Test Item Value Reference Range Interpretation Comments URIC ACID (test code = 5924105258) 5.5 mg/dL 2.9-6 Lab Interpretation (test code = Normal 25143-7) [facility] ClinicsSer [id number] 18:12:00 Test Item Value Reference Range Interpretation Comments CREATININE (test code 0.58 mg/dL 0.5-1.04 = 9047567173) eGFR Calculation mL/min/1.73m2 (Non-) (test code = 8465732082) eGFR Calculation mL/min/1.73m2 () (test code = 6263516795) LUTHER (test code = LUTHER) Association of [...] or urine or abnormalities in imaging tests). [facility] ClinicsSGOT (Asparate Amino Transfer)2019-09-20 18:12:00 Test Item Value Reference Range Interpretation Comments AST(SGOT) (test code = 5580531660) 22 U/L 13-40 Lab Interpretation (test code = Normal 65034-4) [facility] ClinicsAlanine Amino Transferase (SGPT)2019-09-20 18:12:00 Test Item Value Reference Range Interpretation Comments ALTv (test code = 1742-6) 20 U/L 5-35 Lab Interpretation (test code = Normal 69281-4) [facility] ClinicsLactate [id number] 18:07:00 Test Item Value Reference Range Interpretation Comments LDH (test code = 9733623738) 400 U/L 300-600 Lab Interpretation (test code = Normal 79922-4) [facility] ClinicsHepatitis B Surface [id number] 17:51:00 Test Item Value Reference Range Interpretation Comments HBsAg Semi-Quantitative (test code = Negative Negative 5195-3) [facility] ClinicsProtein CREAT Ratio Urine [id number] 17:03:00 Test Item Value Reference Range Interpretation Comments T. PROT U (test code = 2888-6) 12 mg/dL CREAT U (test code = 0019706506) 109.8 mg/dL Protein/Creatinine Ratio Urine 0.0-2.0 (test code = 9095040967) [facility] ClinicsUrinalysis2020-03-10 16:58:00 Test Item Value Reference Range Interpretation Comments APPEARANCE (test code = Hazy Clear A 2375705528) COLOR (test code = Yellow Yellow 4180538097) PH (test code = 4.8-8.0 8752619366) SP GRAVITY (test code = 1.003-1.030 5819640636) GLU U QUAL (test code = Normal Normal 7881732155) BLOOD (test code = Negative Negative 7151828230) KETONES (test code = Negative Negative 8202588184) PROTEIN (test code = Negative Negative 2887-8) UROBILIN (test code = Normal Normal 8243153006) BILIRUBIN (test code = Negative Negative 7355509137) NITRITE (test code = Negative Negative 1659269513) LEUK AURA (test code = Negative Negative 6338565216) RBC/HPF (test code = See_Comment [Autom ated message] 9794283241) The system Vault Dragon generated this result transmitted ref erence range: 0 - 3 HP F. The reference range was not used to int erpret this result as normal/abnormal . WBC/HPF (test code = See_Comment [Autom ated message] 2547092628) The system Vault Dragon generated this result transmitted ref erence range: 0 - 5 HP F. The reference range was not used to int erpret this result as normal/abnormal . BACTERIA (test code = Few Negative A 9697216179) MUCOUS (test code = Slight Negative LPF A 3924707388) SQ EPITH (test code = See_Comment H [Auto mated message] 2233000808) The system Vault Dragon generated this result transmitted ref erence range: <=2 HPF. The reference range was not used to int erpret this result as normal/abnormal . Lab Interpretation (test Abnormal code = 70335-6) [facility] WITH [id number] 16:53:00 Test Item Value Reference Range Interpretation Comments WBC (test code = See_Comment H [Automated 2790-2) message] The sy stem which generated this [...] RDW-SD (test code = 43.2 fL 39-49.9 50370-9) RDW-CV (test code = 14.2 % 12-15.5 788-0) PLT (test code = See_Comment [Automated 777-3) message] The sy stem which generated this result transmitted reference range : 166 - 358 10*3/ ?L. The reference r elsi was not used to interpret this result as normal/abnormal . MPV (test code = 10.9 fL 9.5-12.9 80179-7) NRBC/100 WBC (test See_Comment [Automat ed code = 5350492420) message] The system which generated this result transmitted reference range : 0.0 - 10.0 /100 WBCs. The refer ence range was not u sed to interpret th is result as normal/abnormal . NRBC x10^3 (test code <0.01 See_Comment [Auto mated = 5189913474) message] The s ystem which generated this result transmitted reference range : 10*3/?L. The reference range was not used to interpret this result as normal/abnormal . GRAN MAT (NEUT) % 76.7 % (test code = 770-8) IMM GRAN % (test code 0.50 % = 8917637859) LYMPH % (test code = 14.3 % 736-9) MONO % (test code = 7.6 % 5905-5) EOS % (test code = 0.5 % 713-8) BASO % (test code = 0.4 % 706-2) GRAN MAT x10^3(ANC) 8.53 10*3/uL 1.88-7.09 H (test code = 9189603741) IMM GRAN x10^3 (test 0.06 10*3/uL 0-0.06 code = 0360733682) LYMPH x10^3 (test code 1.59 10*3/uL 1.32-3.29 = 731-0) MONO x10^3 (test code 0.84 10*3/uL 0.33-0.92 = 742-7) EOS x10^3 (test code = 0.05 10*3/uL 0.03-0.39 711-2) BASO x10^3 (test code 0.04 10*3/uL 0.01-0.07 = 704-7) Lab Interpretation Abnormal (test code = 01849-6) [facility] ClinicsPOIA URINALYSIS W SPECIFIC [id number] 14:17:00 Test Item Value Reference Range Interpretation [...] POCT U APPEAR (test code = 3267) [facility] URINALYSIS W SPECIFIC [id number] 15:35:00 Test Item Value Reference Range Interpretation [...] POCT U APPEAR (test code = 3267) [facility] URINALYSIS W SPECIFIC [id number] 14:27:00 Test Item Value Reference Range Interpretation [...] POCT U APPEAR (test code = 3267) [facility] ClinicsANTIBODY TITER [id number] 15:17:50 Test Item Value Reference Range Interpretation Comments TITERED AB (test Ab Titered: Fya Performe d at [facility] code = 1141) Laboratory Serv [facility] Blood [facility] [address] [place] [address] s [address]Ueni Free: [phone] A No. [id number] AB TITER (test Antibody Titer: 4 Performe d at [facility] code = 247) Laboratory [facility] Blood [address] [place] [address]Frbo Free: [phone] A No. [id number] [facility] ClinicsANTIBODY TITER [id number] 15:17:16 Test Item Value Reference Range Interpretation Comments TITERED AB (test Ab Titered: K Performed at [facility] code = 1141) Laboratory [facility] Blood [address] [address]Ksxa Free: [phone] A No. [id number] AB TITER (test Antibody Titer: 8 Performe d at [facility] code = 247) Laboratory [address] [address]Pytf Free: [phone] A No. [id number] [facility] ClinicsPANEL [id number] 13:49:50 ANTIBODY HOQvmq-OnvJezm-K Comment: Performed at [facility] Laboratory [facility] Blood [address] [place], [place] [address]Rkdk Free: [phone] No. [id number] LABEast [facility] Hospital and ClinicsPrenatal Workup, Blood Bank 2019-08-05 13:47:05 Test Item Value Reference Range Interpretation Comments ABO & RH (test code O POSITIVE Performe d at [facility] = 20) Laboratory [facility] Blood Bank3 [address] [facility] s [address]Zshf Free: [phone] A No. [id number] IAT (test code = Positive Performed a t [facility] 1185) Laboratory [facility] Blood [facility]3 [address] [facility] s [address]Ykhd Free: [phone] A No. [id number] [facility] ClinicsPOIA URINALYSIS W/O SPECIFIC [id number] 15:38:00 Test Item Value Reference Range Interpretation [...] Negative Lab Interpretation (test code = Abnormal 80598-1) [facility] URINALYSIS W/O SPECIFIC [id number] 15:38:00 Test Item Value Reference Range Interpretation [...] Negative Lab Interpretation (test code = Abnormal 17610-4) [facility] URINALYSIS W/O SPECIFIC [id number] 15:38:00 Test Item Value Reference Range Interpretation [...] Negative Lab Interpretation (test code = Abnormal 66351-4) [facility] URINALYSIS W SPECIFIC [id number] 14:33:00 Test Item Value Reference Range Interpretation [...] POCT U APPEAR (test code = 3267) [facility] [facility]INAL[facility] W SPECIFIC [id number] 14:33:00 Test Item Value Reference Range Interpretation [...] POCT U APPEAR (test code = 3267) [facility]icsANTIBODY TITER [id number] 11:17:08 Test Item Value Reference Range Interpretation Comments TITERED AB (test Ab Titered: Fya Performe d at [facility] code = 1141) Laboratory [address] s [address]Fpho Free: [phone] A No. [id number] AB TITER (test Antibody Titer: 8 Performe d at [facility] code = 247) Laboratory [address] [address]Yoco Free: [phone] A No. [id number] [facility]icsANTIBODY TITER [id number] 11:17:08 Test Item Value Reference Range Interpretation Comments TITERED AB (test Ab Titered: Fya Performe d at [facility] code = 1141) Laboratory [facility] Blood [address] s [address]Qriw Free: [phone] A No. [id number] AB TITER (test Antibody Titer: 8 Performe d at [facility] code = 247) Laboratory [address] s [address]Ddby Free: [phone] A No. [id number] [facility]icsANTIBODY TITER [id number] 11:16:14 Test Item Value Reference Range Interpretation Comments TITERED AB (test Ab Titered: K Performed at [facility] code = 1141) Laboratory [address] s [address]Ztfr Free: [phone] A No. [id number] AB TITER (test Antibody Titer: 4 Performe d at [facility] code = 247) Laboratory [address] s [address]Wryk Free: [phone] A No. [id number] [facility]icsANTIBODY TITER [id number] 11:16:14 Test Item Value Reference Range Interpretation Comments TITERED AB (test Ab Titered: K Performed at [facility] code = 1141) Laboratory [facility] Blood [address] s [address]Vjqb Free: [phone] A No. [id number] AB TITER (test Antibody Titer: 4 Performe d at [facility] code = 247) Laboratory [facility] Blood [address] s [address]Tilb Free: [phone] A No. [id number] [facility] [id number] 11:16:13 ANTIBODY CCNsdz-SciAkny-Z Comment: Performed at [facility] Laboratory Services [facility] Blood [address] [address]Gsnh Free: [phone] No. [id number] [facility] IDENTIFICATION 2019-02-25 11:16:13ANTIBODY JYUtpf-MmaOzdf-W Comment: Performed at [facility] Blood [address] [address]Tpnn Free: [phone] No. [id number] [facility], BLOOD [id number] 07:33:42 Test Item Value Reference Range Interpretation Comments ABO & RH (test code O Positive Performe d at [facility] = 20) Laboratory [facility] Blood [address] [address]Gvpf Free: [phone] A No. [id number] IAT (test code = Positive Performed a t [facility] 1185) Laboratory [facility] Blood [address] [address]Iclj Free: [phone] A No. [id number] [facility], BLOOD [id number] 07:33:42 Test Item Value Reference Range Interpretation Comments ABO & RH (test code O Positive Performe d at [facility] = 20) Laboratory [facility] Blood [address] [address]Ufbp Free: [phone] A No. [id number] IAT (test code = Positive Performed a t [facility] 1185) Laboratory [facility] Blood [address] [address]Kfng Free: [phone] A No. [id number] [facility] ClinicsPOIA URINALYSIS W SPECIFIC [id number] 15:07:00 Test Item Value Reference Range Interpretation [...] POCT U APPEAR (test code = 3267) [facility] URINALYSIS W SPECIFIC [id number] 15:07:00 Test Item Value Reference Range Interpretation [...] POCT U APPEAR (test code = 3267) [facility] URINALYSIS W SPECIFIC [id number] 15:07:00 Test Item Value Reference Range Interpretation [...] POCT U APPEAR (test code = 3267) [facility] ONLY PAP SMEAR-LIQUID [id number] 15:19:00 Test Item Value Reference Range Interpretation Comments Case Report (test code Gynecologic = 7923459799) Cytology?Case: [id number]? Authorizing Provider:?Lindy Godwin,?Collected:? 01/26/2019 1135??? [facility]-? Received:?01/26/2019 2341?? Cherry? First Screen:?Dennise Munroe? Specimen:?Liquid Based Pap Preparation, CERVIX? Clinical Information routine (test code = 7865878639) Specimen Adequacy Satisfactory for (test code = 49259-7) Evaluation(Endocervical /Transformation Zone Component Absent) Interpretation (test Negative for code = 51355-2) intraepithelial lesion or malignancy Other Findings (test Shift In Blossom code = 8570704083) Suggestive Of Bacterial Vaginosis Comments (test code = h2buzOPjTYQykALwObJcSJN 2768670148) yKZIvo6anUZBhoCMoDbVhBo NcZnRuYmpcdWMxXGRlZmYwe 2qpg177jJDso8qfSGYhLrM4 qFKlDJSkqVXhU956VTXbNWq zd7vsc0RkNDKesJRee2S9MN RQEOikQtVuE987t5fry4blh aCszTY6ZYFhSODsX2ZmCU2o PDWnmHGdAXotjuIoWwW9HFs kODApLvU6ZYVdiEUkIKRjO8 84XBQ7qJdiy6fyTUH7JEGvQ TGxZvZlWy2jxPRgY634DTBu XBRUURQcrVj5CWGospHlbqG tdYYIf265U318e7zoSCJcpq JypZpCpfzou0toB736UZDwy GVydzEyMjQwXHBhcGVyaDE1 IDPsEP2fpgxeXGZ2JNqtWBP ovpTyEDThvDYlA9X6PdNlmH XoQ1HaUYmxYMZqcbz1HpDoH p6hvGLkpAH8ZMoar4qjh2vl kGYrDfv5CYMxXwLeGrszQOu aj1Hsz6ukHTGwzv3mDVX2sX OzqVfgl0L2rQWyCQMwvVEye aJpCLNxJeN6CFfuFK8cpr96 DPSiMTO2bl5lbCBkuQgcflH toPImUUjgF1GlGLUqk878WU PtO4DtVZEfb0O8thPqOrUuL RVxjAQ6neF3TSMwHAv5pINs wwY6bcFxnRYzM8ugrB1wSJo zEV3pwqboh5fnOZE2GNmiQB HecKJ9qhfmXWexDTPsRpI6w xHzxSHoTAHtmZljJRjcn885 UGD5FhIaOKRyt3YcT9MetVu lU52dyBbaX75nHMCtkLveuH 1uyNorvS0rVsZbZbAaDLdlS XJkXHBsYWluXGYwXGZzMjBc sSkbgL9aTlBxWvUmQkplBF5 pBEBaE8iraKOgYPApJBEcB5 umYnNgeX5abJrgSVqxTcLdS rJpTzcrQABciuUfbm2sJZIx xpNnglFkgXCgXPOePgkuQ5v 0n5BnV1qfd2cqD9odjVHkoM pccGFyIFVuaXZlcnNpdHkgb 0BgIIZ1BIAzHGVbjTYliYJO whTuU5wnOANig4IcsQ5bxQK PGBN8vAQvpbSvSPoqWRt2SD VKqJP8YQAtnQD9z0rmEBCqY uU7BSGScDadZYEnKTE8EFwy V706yYogtAQrIDPkYAYbIXn jYUGvBZOpSbRquRpmsS9zOf CfBvTnRfxgDC8vJYYsF1kyk FRxPEQeZOCyB0tvCpRnkS4s aFxmMVxjZjFcZnMxNlxpIEx jTZy5GKAJsYU9ZGHZKVF0Ld U6A7oauYImbxdvNMievrCtO HBhclxwYXJ9 LMP (test code = 4752687247) Educational Note (test s6rocBPcMPBor7bpDFSjdGB code = 0028624706) uZzEwMzNcZnRuYmpcdWMxIH juwcYkKTjua2XyM0QcJVUoD FxhbnNpXGRlZmxhbmcxMDMz KKA9poRyGOWiWDztNCTdSZb vWd8qwIOqvOnaIrYbLGLgd6 nvfgVAzeyveZx5u8agIGPxZ hH5hAUpDQxbR8vkldFfnRMf XDEbHZi6uV42JTHwtY1qpQZ gIDfdxbSsEwA1TNezAKXiDc G2DKZhoWKoHWBeT4ydBXYiQ QYgQ5EoFJ0xEyvhBtz3SDL5 IDtccmVkMFxncmVlbjBcYmx 9SRNjL578BDH3oXxpv7skGJ E9KMLePVAxXfNaWj6yjNCtV 993POHgLPYXZIFpmMh7SNTv ttLsarNdcFFEr189O230y8m jCJIxpaZdbQhWysbds7asG7 19XHBhcGVydzEyMjQwXHBhc WLldXB2MRGzZV4iicthDWqb XDtaEOMzyjD8BWEweGDdN2D fRMRgPH9jszxhCSM1UCboCV TwHKC8IfWsSYNtx4Xiqwb6M nWfrj9fmi10JOL5v6WbsCbx EQA1BAG2NtCiRy2mnRLvAOM mQN9qRaXuySPtRXJhxn73fU qwGDtcifOgaU1qXaHzKMHbr MYnEPTrTS4jtZXzVPNgbZ9c cmxjXHBnYnJkcmhlYWRccGd pldOgAe2zgTiuZRG9PQadB9 axwP6lJdE5LXlpJ0qpbP2eO Ya3WUgtbMJ0AZHhmR9bYY1i eilkl7hpIKsnPAerOARejmH 4hqA7YKWogXMjX5BidM7nEO SlZJ2hkuvpo7nfUHA3RXzjL LJtYSH1RjAiRTQgu5Zzkkv9 YzEdl3IvwAJjCDenB90dk00 7ELWvdkYmV8kdcJUrstoqbO ZipczyVUzeowE9UOBcIGMeX WluXGYxXGZzMjJcbGFuZzEw MzNcaGljaFxmMVxkYmNoXGY oQPvbT9ytQsVvI2CqEXHcVu MwiANZNYA5nXExqHAdgSLaq M1dvCJbSNDyZQGzl2EyHTxg PZPsp9SmOEKqcF8mQKLes2H fiYRpeNPfxUz5VMLjxjCnpA TlwU71njCsCW4zFVOmWDTgE GIjjxYojEMne8NvMjBUjOVe vAQcsYTcXZGqUC1jiL1oIQF jetXcIGW9rMUhh7zhZQJen6 YgZeqwrJV0KA0pSZQtuSIsO Q7aJ7K0jMKuSAKjGUScDDfx UU8ju7PaiPs8XXBeODN3uSM oDrLsKuHrsCnimoWeUB2qtP ynJmEusqZdDs2poA36FZPbF S1wFPWnTEkyqTNplnFxXYEr uL6kC1QgILDxJ56uUJDdTDB rmA2tzO9gmrLjzgZewtQlq4 2eNB5yGUYpwL3nqMofuM2rf mUgdGhlIGVmZmVjdCBvZiBm VXxgTTLaSXnurUu3USKoPNR 8nBLdOdAkNF05ctIlGCLxGV 95EUVox1UjIZEeFVLsBK2ty fPlGAW6gkPbu52jbDr7LOpm rNXyyZ2tPMbasSHxuCVgJeU sqICoLMhpQTCyJS0nNQUvJM 55IHVuZXhwbGFpbmVkIGNsa N8zQ1ReLXUsK43dFNDfSVQk aY2yfV1uxffaolUtVDPhrTE zcyBvZiBhbnkgUGFwIFRlc3 JtmpKeoKa5UmcwlHOcunaeZ VxmczIyXGxhbmcxMDMzXGhp I0gfCcLpFENwkSniNDgua9H oXGYxXGZzMjJccGFyfX0= Embedded Images (test code = [id number]) [facility] ONLY PAP SMEAR-LIQUID [id number] 15:19:00 Test Item Value Reference Range Interpretation Comments Case Report (test code Gynecologic = 9851322512) Cytology?Case: [id number]? Authorizing Provider:?Lindy Godwin,?Collected:? 01/26/2019 1135?? [facility]-? Received:?01/26/2019 2341?? Cherry? First Screen:?Dennise Munroe? Specimen:?Liquid Based Pap Preparation, CERVIX? Clinical Information routine (test code = 9637546879) Specimen Adequacy Satisfactory for (test code = 43054-8) Evaluation(Endocervical /Transformation Zone Component Absent) Interpretation (test Negative for code = 92557-1) intraepithelial lesion or malignancy Other Findings (test Shift In Blossom code = 7131966814) Suggestive Of Bacterial Vaginosis Comments (test code = f3zpqRWkPUJkdVNkZrApBDX 5765390705) rTZLjf1pjXKQtgRDrTgMpXp NcZnRuYmpcdWMxXGRlZmYwe 0jzm799oSQya7qtNPBlVxT9 fGVvGOSqeRKnO980USJzPLx wn9zow5VbVSTqvDFlw5Y5DV LQVXjkSdDuK396j6hck0cez jXpjSD8OQFzKNTyK0HtWJ3u HSYilJCdQRpwglBxIqS7UJv cTJVbBvL6HIZauZQbTXNbV9 80CHD8aByll1ahQUK6BWSlC DNeEbZbVp7gjNQhA018OYUw SKZCLJJcyKr0MWWzezRfbvS czHJTi472Z489p7khCXDqgs WmoGzDwqdtu7lxI484DTSlr GVydzEyMjQwXHBhcGVyaDE1 NWLlTI0fvhecOEN6WMnsKAV rrkBrOADiuOXiA9O2XlEezN PnA3RiTPyuGZTkluo4PgEwG n5rdJKhfFA6ZOrxb0cqy1zh cVHfCnj6ZQLcFtXvJpqkATx rf8Ofo5kaSLXbdx9oAXY9iE BeyNpom1F4rELsSFHtrRKch dNdMHQbXqF6HChhAE3rcp97 PLMmYQN0dj1snTCelYlxecZ zdNIbUMyfY4CnZONpp206WR KfG6UeCCAuf5H5gvLnDlHaG BLkiUU0coS1DNHoYSc4yFOz uoN6wpLphBExZ9kejA9rXMf nFQ5inubml2yuRGF5MVduTR NohAL7hnhsBSmgNKSkNgV4a eXaxVWkWIEgoRtiUMnsn758 HUL1NaXnSRLkd6DxI7VqhTv oB95voNetE88eIEDaaJuycY 8qzHetyZ6yBwBiDqMjKHqgS XJkXHBsYWluXGYwXGZzMjBc kSsnoW6zDwRyUjAdFusgBB9 wZEGlO9fmfTCdIQLtKNYtK8 xoHdGcmK0haRtwXEpoJsBtG wGeAvtzCUKqxvVsjb1nCQXt cyRjfqTezDMiKXJaMuowJ7g 0j9VyY2eab9psY2vnpDRibO pccGFyIFVuaXZlcnNpdHkgb 1OfEFO4RKZeZQDxkFWlwGXV htSlG8wiYBIum2ZhzD5hoBB ADIC7mJWcjjCqJZngEXp6OT RLfAS9GDKqiID2p8faTNHtB fI0ARYVeNhvNQAlPXS1GEjh C021iQbqcFMtEYMaDWWsPKz zEOHqCSZnGyOxlGmthM6aLl YuTlXjIaykCM7hGMZdL4azn VOmNNBgJURvS6txXqVjcU1s aFxmMVxjZjFcZnMxNlxpIEx oWWr3CPRBlDJ2OJRHYQU7Ay P6X0nlpFOzziehBSftlsCrW HBhclxwYXJ9 LMP (test code = 0590602628) Educational Note (test s6xttRJtKYYhi8nyFNKshWI code = 3576949944) uZzEwMzNcZnRuYmpcdWMxIH jjroAmOZotn4SaU8DpYQCjC FxhbnNpXGRlZmxhbmcxMDMz GPB1yxIvSZXaFVgcQGOfTZe dVx9kqVTwoTzmInZhLCQzz0 xoavVUcjlalHv7u6csDFXoV yA0uVNbVQerF2uwptMjeSHo GJXjJPk3lJ77QVTgwD8lqGB mTEzltgUrHwQ9RIcmKEEmHs R1MZBqnRQvPLVgZ2rgPLTrC DWuT3EqIO5mNhkgZkm6UXM6 IDtccmVkMFxncmVlbjBcYmx 0RILaO334BKS5gUfkw2dzDG U3QOLqOIWaXlWmMs2zpIRlH 687BUPyWSVBRNUkqIm3SOGn mcTpszYljTNXm741E552j3b hNXSwurRveKgJfquvb8kzS5 19XHBhcGVydzEyMjQwXHBhc ANszZD6UMQtSJ7znzmeONky JMcaFQQoowX2VFZuxQRzO1N oIKMvZP2qrtwbUNR9BOvkXN VlKHM7HbHiHSSlj6Gkqnf3X aNgue7ett80ZHC9p0SlhKek MNG3IEB3BpZsWh2pnHYcJVB jXS4iIiQvdPToETIfyy13iL fcIOjtkkKoqN5tHoUeKDTsy WLuUNYgQH3pkZVmDPWtxC7v cmxjXHBnYnJkcmhlYWRccGd zdfInUj7lhPobUFJ9CHlbN3 fbqI8bEqM4SKpgB6utrJ9yH Qd3SXhbmHR2RTQouU7vYB3e ieafs4tiOVnqGLyeIATpeuI 1uqZ0AYTezFMqB9GvoR9lCT BrSP9uctafi8sfSKJ3LKamP LHiOVL7HnVqFFHrt8Czhzk1 QzIky9GrnOZuOHhjG82jk17 1ULVcrkOkJ2nmqDXbbgpfhT PvvxxyWExtulH6EDZrUTKfH WluXGYxXGZzMjJcbGFuZzEw MzNcaGljaFxmMVxkYmNoXGY fHEiwQ1ibNpEpS5ZvASDnGc XvxRHREVX1yOQozPNnrTAuw D2moKJjDVPpRPRvw4OrIHsd JUNuf8MxYZUmdA8pGIFgz4C ctBXdtYXgvJy1WCRpcrFexN RgjD38zuPwLE6eEBNwVAQoS OMjvxAomFRrv1IdZjOWoSUm kPUuaYBnMLOaHD3amK5vZJN zmdQfAEA2fBUvx5onFCAqr6 AsOeotgHE7FO4wHBYghEVrV L6yZ7G0sZVpKVIjYBAeSIga QL7ji9TbhBr1COOkNWL7gMO yWePoBqXmpAutgiSgHP6qjK wcVtYqkmGtZl4jjQ81XRIlX D2dLFCxXKemwBDjldEiKKQd uK3rM6EtQUKtR63yVBMsWOQ daQ6vjE9ffoKlxuBeumYqs5 7hDV7jLYGyyA5ksMqqfA5yc mUgdGhlIGVmZmVjdCBvZiBm VClfFXMlORjcxNr8OIUxVIT 7lWVaMyPiUP74xcLvORHgOX 74WCEwm0WyOAAxAWIfWG7co hRjGFD2epUed56vhUv3UNgg tYIisB0bIPhzkBYfyYKfYyG fbDIdHJsyHJXdIF2yIPCmIS 55IHVuZXhwbGFpbmVkIGNsa Q6qL4UfPRTqU66tJYSqLPQd bR9wsC9pagicgpAfGCVvmDS zcyBvZiBhbnkgUGFwIFRlc3 QjmfJlbQh1MvjmyBVjhdhbG VxmczIyXGxhbmcxMDMzXGhp F4aaQzPgXRSraCkzCUiet7R oXGYxXGZzMjJccGFyfX0= Embedded Images (test code = 0701468860) [facility]icsURINE [id number] 12:23:00 Test Item Value Reference Range Interpretation Comments URINE CULTURE (test > 100,000 CFU/mL mixed code = 630-4) aerobic organisms - suggests endogenous microbial contamination [facility]icsURINE [id number] 12:23:00 Test Item Value Reference Range Interpretation Comments URINE CULTURE (test > 100,000 CFU/mL mixed code = 630-4) aerobic organisms - suggests endogenous microbial contamination [facility] ClinicsGC & CHLAMYDIA AMPLIFIED [id number] 23:43:00 Test Item Value Reference Range Interpretation Comments Lab Interpretation (test code = Normal 51050-2) [facility]icsGC & CHLAMYDIA AMPLIFIED [id number] 23:43:00 Test Item Value Reference Range Interpretation Comments Lab Interpretation (test code = Normal 53890-9) [facility] ClinicsRUBELLA SCREEN (ROSAURA) [id number] 16:17:00 Test Item Value Reference Range Interpretation Comments Rubella screen IgG Positive Negative (test code = 4270158011) LUTHER (test code = LUTHER) Positive - Indicates the patient was exposed to Rubella through infection or vaccination.Negative - Indicates the patient could be susceptible to Rubella infection.Equivocal - A second specimen should be sent. [facility] ClinicsVZV ANTIBODY [id number] 16:17:00 Test Item Value Reference Range Interpretation Comments VZV IgG antibody Positive Negative (test code = 01173-9) LUTHER (test code = LUTHER) Positive - Indicates the patient was exposed to VZV through infection or vaccination.Negative - Indicates the patient could be susceptible to VZV infection.Equivocal - A second specimen should be sent for testing. [facility] ClinicsRUBELLA SCREEN (ROSAURA) [id number] 16:17:00 Test Item Value Reference Range Interpretation Comments Rubella screen IgG Positive Negative (test code = 3957609528) LUTHER (test code = LUTHER) Positive - Indicates the patient was exposed to Rubella through infection or vaccination.Negative - Indicates the patient could be susceptible to Rubella infection.Equivocal - A second specimen should be sent. [facility] ClinicsVZV ANTIBODY [id number] 16:17:00 Test Item Value Reference Range Interpretation Comments VZV IgG antibody Positive Negative (test code = 64139-8) LUTHER (test code = LUTHER) Positive - Indicates the patient was exposed to VZV through infection or vaccination.Negative - Indicates the patient could be susceptible to VZV infection.Equivocal - A second specimen should be sent for testing. [facility] ONLY - SYPHILIS [id number] 14:51:00 Test Item Value Reference Range Interpretation Comments Syphilis IgG/IgM (test Non-reactive Non-reactive code = 15292-1) LUTHER (test code = LUTHER) Non-reactive - No serologic evidence of T. pallidum infection. Cannot exclude incubating or early syphilis. Submit a second specimen in 2-4 weeks if syphilis is clinically suspected.Equivocal - Further testing to follow.Reactive - Further testing to follow. Lab Interpretation (test Normal code = 50167-2) [facility] ONLY - SYPHILIS [id number] 14:51:00 Test Item Value Reference Range Interpretation Comments Syphilis IgG/IgM (test Non-reactive Non-reactive code = 70894-5) LUTHER (test code = LUTHER) Non-reactive - No serologic evidence of T. pallidum infection. Cannot exclude incubating or early syphilis. Submit a second specimen in 2-4 weeks if syphilis is clinically suspected.Equivocal - Further testing to follow.Reactive - Further testing to follow. Lab Interpretation (test Normal code = 27670-2) [facility] ClinicsANTIBODY TITER [id number] 11:22:09 Test Item Value Reference Range Interpretation Comments TITERED AB (test Ab Titered: Fya Performe d at [facility] code = 1141) Laboratory Serv [address] s [address]Jkye Free: [phone] A No. [id number] AB TITER (test Antibody Titer: <1 Perform ed at [facility] code = 247) Laboratory [facility] Blood [address] s [address]Eagi Free: [phone] A No. [id number] [facility] ClinicsANTIBODY TITER [id number] 11:22:09 Test Item Value Reference Range Interpretation Comments TITERED AB (test Ab Titered: Fya Performe d at [facility] code = 1141) Laboratory [facility] Blood [address] [place] [address]Njza Free: [phone] A No. [id number] AB TITER (test Antibody Titer: <1 Perform ed at [facility] code = 247) Laboratory [facility] Blood [address] s [address]Jols Free: [phone] A No. [id number] [facility] ClinicsANTIBODY TITER [id number] 11:22:06 Test Item Value Reference Range Interpretation Comments TITERED AB (test Ab Titered: K Performed at [facility] code = 1141) Laboratory [facility] Blood [address] s [address]Ssel Free: [phone] A No. [id number] AB TITER (test Antibody Titer: <1 Perform ed at [facility] code = 247) Laboratory [facility] Blood [address] s [address]Xyct Free: [phone] A No. [id number] [facility] ClinicsANTIBODY TITER [id number] 11:22:06 Test Item Value Reference Range Interpretation Comments TITERED AB (test Ab Titered: K Performed at [facility] code = 1141) Laboratory [facility] Blood [address] s [address]Uqnn Free: [phone] A No. [id number] AB TITER (test Antibody Titer: <1 Perform ed at [facility] code = 247) Laboratory [facility] Blood [address] s [address]Uems Free: [phone] A No. [id number] [facility] [id number] 10:41:26 ANTIBODY MMCdnn-EhqFyht-Y Comment: Performed at [facility] Laboratory Services - [facility] Blood [address] [address]Ltjd Free: [phone] No. [id number] [facility] 2019-01-27 10:41:26ANTIBODY ZXLifo-ZxpVbek-D Comment: Performed at [facility] Laboratory Services - [facility] Blood [address] Free: [phone] No. [id number] [facility] [id number] 10:41:26ANTIBODY SFTomw-WgpIxky-O Comment: Performed at [facility] Laboratory Services - [facility] Blood [address] Free: [phone] No. [id number] [facility] [id number] 10:41:26ANTIBODY AJBfzp-BxxLxov-Q Comment: Performed at [facility] Laboratory Services - [facility] Blood [address] Free: [phone] No. [id number] [facility] [id number] 09:46:00 Test Item Value Reference Range Interpretation Comments HCV Semi-Quantitative (test code = 16154-5) [facility] WITH [id number] 09:46:00 Test Item Value Reference Range Interpretation Comments HIV Negative Negative Semi-quantitative (test code = 56801-6) LUTHER (test code = Non-reactive for HIV-1 LUTHER) antigen and HIV-1/HIV-2 antibodies.?No laboratory evidence of HIV infection.?Repeat in 2-4 weeks if acute HIV infection is suspected. [facility] [id number] 09:46:00 Test Item Value Reference Range Interpretation Comments HCV Semi-Quantitative (test code = 41338-5) [facility]-AB WITH [id number] 09:46:00 Test Item Value Reference Range Interpretation Comments HIV Negative Negative Semi-quantitative (test code = 43213-5) LUTHER (test code = Non-reactive for HIV-1 LUTHER) antigen and HIV-1/HIV-2 antibodies.?No laboratory evidence of HIV infection.?Repeat in 2-4 weeks if acute HIV infection is suspected. [facility]ics[facility] TYPING [id number] 09:35:20 Test Item Value Reference Range Interpretation Comments ANTIGEN ID (test Leb Antigen Performed a t [facility] code = 1687) Negative Laboratory [address] s [address]Xjco Free: [phone] A No. [id number] ANTIGEN ID (test M Antigen Positive Perfo rmed at [facility] code = 62) Laboratory [address] s [address]Kuxb Free: [phone] A No. [id number] ANTIGEN ID (test N Antigen Negative Perfo rmed at [facility] code = 63) Laboratory [address] s [address]Dwba Free: [phone] A No. [id number] ANTIGEN ID (test Tg Antigen Performed a t [facility] code = 64) Positive Laboratory [address] s [address]Onzy Free: [phone] A No. [id number] ANTIGEN ID (test Fya Antigen Performed a t [facility] code = 1688) Negative Laboratory [address] s [id number] Free: [phone] A No. [id number] [facility] [id number] 09:35:20 Test Item Value Reference Range Interpretation Comments ANTIGEN ID (test Leb Antigen Performed a t [facility] code = 1687) Negative Laboratory [address] s [address]Jpir Free: [phone] A No. [id number] ANTIGEN ID (test M Antigen Positive Perfo rmed at [facility] code = 62) Laboratory [address] s [address]Vpdp Free: [phone] A No. [id number] ANTIGEN ID (test N Antigen Negative Perfo rmed at [facility] code = 63) Laboratory Serv ices - [facility] Blood [address] s [address]Knym Free: [phone] A No. [id number] ANTIGEN ID (test Tg Antigen Performed a t [facility] code = 64) Positive Laboratory [facility] Blood [address] s [address]Rfnk Free: [phone] A No. [id number] ANTIGEN ID (test Fya Antigen Performed a t [facility] code = 1688) Negative Laboratory [facility] Blood [address] s [address]Xtyw Free: [phone] A No. [id number] [facility] B SURFACE [id number] 09:30:00 Test Item Value Reference Range Interpretation Comments HBsAg Semi-Quantitative (test code = 5195-3) [facility] B SURFACE [id number] 09:30:00 Test Item Value Reference Range Interpretation Comments HBsAg Semi-Quantitative (test code = 5195-3) [facility] [id number] 08:58:34 Test Item Value Reference Range Interpretation Comments ANTIGEN ID (test Fyb Antigen Performed a t [facility] code = 1687) Positive Laboratory [facility] Blood [address] s [address]Lpiw Free: [phone] A No. [id number] [facility]icsANT[facility] TYPING [id number] 08:58:34 Test Item Value Reference Range Interpretation Comments ANTIGEN ID (test Fyb Antigen Performed a t [facility] code = 1687) Positive Laboratory Serv [facility] Blood [address] s [address]Gtbk Free: [phone] A No. [id number] [facility]icsANTIGEN TYPING [id number] 08:49:20 Test Item Value Reference Range Interpretation Comments ANTIGEN ID (test Jkb Antigen Performed a t [facility] code = 1687) Positive Laboratory Serv [facility] Blood [address] s [address]Hofs Free: [phone] A No. [id number] ANTIGEN ID (test P1 Antigen Performed a t [facility] code = 62) Positive Laboratory [address] s [address]Khmb Free: [phone] A No. [id number] ANTIGEN ID (test S Antigen Negative Perfo rmed at [facility] code = 63) Laboratory [address] s [address]Ihju Free: [phone] A No. [id number] ANTIGEN ID (test s Antigen Positive Perfo rmed at [facility] code = 64) Laboratory [address] s [address]Wmeg Free: [phone] A No. [id number] ANTIGEN ID (test e Antigen Positive Perfo rmed at [facility] code = 1688) Laboratory [address] s [address]Noro Free: [phone] A No. [id number] [place] [facility] [id number] 08:49:20 Test Item Value Reference Range Interpretation Comments ANTIGEN ID (test Jkb Antigen Performed a t [facility] code = 1687) Positive Laboratory [address] s [id number] Free: [phone] A No. [id number] ANTIGEN ID (test P1 Antigen Performed a t [facility] code = 62) Positive Laboratory [address] s [id number] Free: [phone] A No. [id number] ANTIGEN ID (test S Antigen Negative Perfo rmed at [facility] code = 63) Laboratory [address] s [id number] Free: [phone] A No. [id number] ANTIGEN ID (test s Antigen Positive Perfo rmed at [facility] code = 64) Laboratory [facility] Blood [address] [address]Grri Free: [phone] A No. [id number] ANTIGEN ID (test e Antigen Positive Perfo rmed at [facility] code = 1688) Laboratory [address] [id number] Free: [phone] A No. [id number] [facility]YP[facility] [id number] 08:32:43 Test Item Value Reference Range Interpretation Comments ANTIGEN ID (test C Antigen Positive Perfo rmed at [facility] code = 1687) Laboratory [address] [id number] Free: [phone] A No. [id number] ANTIGEN ID (test c Antigen Positive Perfo rmed at [facility] code = 62) Laboratory [address] [address]Xbif Free: [phone] A No. [id number] ANTIGEN ID (test E Antigen Positive Perfo rmed at [facility] code = 63) Laboratory [address] [id number] Free: [phone] A No. [id number] ANTIGEN ID (test K Antigen Negative Perfo rmed at [facility] code = 64) Laboratory [address] [address]Liqx Free: [phone] A No. [id number] ANTIGEN ID (test Jka Antigen Performed a t [facility] code = 1688) Positive Laboratory [address] s [id number] Free: [phone] A No. [id number] [facility]icsANT[facility] TYPING [id number] 08:32:43 Test Item Value Reference Range Interpretation Comments ANTIGEN ID (test C Antigen Positive Perfo rmed at [facility] code = 1687) Laboratory Serv ices - [facility] Blood Ban [address] s [address]Scin Free: [phone] A No. [id number] ANTIGEN ID (test c Antigen Positive Perfo rmed at [facility] code = 62) Laboratory [facility] Blood [address] s [id number] Free: [phone] A No. [id number] ANTIGEN ID (test E Antigen Positive Perfo rmed at [facility] code = 63) Laboratory [facility] Blood [address] s [address]Abzy Free: [phone] A No. [id number] ANTIGEN ID (test K Antigen Negative Perfo rmed at [facility] code = 64) Laboratory [facility] Blood [address] s [address]Xblk Free: [phone] A No. [id number] ANTIGEN ID (test Jka Antigen Performed a t [facility] code = 1688) Positive Laboratory [facility] Blood [address] s [address]Pwxg Free: [phone] A No. [id number] [facility], BLOOD [id number] 07:33:05 Test Item Value Reference Range Interpretation Comments ABO & RH (test code O POSITIVE Performe d at [facility] = 20) Laboratory [facility] Blood Bank[address] [place] [address] s [id number] Free: [phone] A No. [id number] IAT (test code = Positive Performed a t [facility] 1185) Laboratory [facility] Blood Bank[address] [place] [address] s [id number] Free: [phone] A No. [id number] [facility], BLOOD [id number] 07:33:05 Test Item Value Reference Range Interpretation Comments ABO & RH (test code O POSITIVE Performe d at [facility] = 20) Laboratory [facility] Blood Bank3 [address] [facility] [address]Fctm Free: [phone] A No. [id number] IAT (test code = Positive Performed a t [facility] 1185) Laboratory Serv [facility] Blood Bank3 [facility] [address]Ezml Free: [phone] A No. [id number] [facility]icsGL[facility] 1 HOUR POST [id number] 04:06:00 Test Item Value Reference Range Interpretation Comments GLUC 1 HR (test code = 3996608278) 116 mg/dL 120-170 L Lab Interpretation (test code = Abnormal 20467-9) [facility]ics[facility] HOUR POST [id number] 04:06:00 Test Item Value Reference Range Interpretation Comments GLUC 1 HR (test code = 3315477134) 116 mg/dL 120-170 L Lab Interpretation (test code = Abnormal 14644-3) [facility]ics[facility] WITH [id number] 03:24:00 Test Item Value Reference Range Interpretation Comments WBC (test code = See_Comment [Automated 2090-2) message] The sy stem which generated this result transmitted reference range : 4.30 - 11.10 10*3/?L. The reference range was not used to interpret this result as normal/abnormal . RBC (test code = See_Comment H [Automated 749-8) message] The sy stem which generated this [...] RDW-SD (test code = 41.0 fL 39-49.9 60818-4) RDW-CV (test code = 13.2 % 12-15.5 788-0) PLT (test code = See_Comment [Automated 777-3) message] The sy stem which generated this result transmitted reference range : 166 - 358 10*3/ ?L. The reference r elsi was not used to interpret this result as normal/abnormal . MPV (test code = 9.9 fL 9.5-12.9 24894-5) NRBC/100 WBC (test See_Comment [Automat ed code = 3246786958) message] The system which generated this result transmitted reference range : 0.0 - 10.0 /100 WBCs. The refer ence range was not u sed to interpret th is result as normal/abnormal . NRBC x10^3 (test code <0.01 See_Comment [Auto mated = 7374367496) message] The s ystem which generated this result transmitted reference range : 10*3/?L. The reference range was not used to interpret this result as normal/abnormal . GRAN MAT (NEUT) % 73.4 % (test code = 770-8) IMM GRAN % (test code 0.50 % = 8231862161) LYMPH % (test code = 18.3 % 736-9) MONO % (test code = 6.2 % 5905-5) EOS % (test code = 1.1 % 713-8) BASO % (test code = 0.5 % 706-2) GRAN MAT x10^3(ANC) 6.12 10*3/uL 1.88-7.09 (test code = 6898569572) IMM GRAN x10^3 (test 0.04 10*3/uL 0-0.06 code = 3520161273) LYMPH x10^3 (test code 1.53 10*3/uL 1.32-3.29 = 731-0) MONO x10^3 (test code 0.52 10*3/uL 0.33-0.92 = 742-7) EOS x10^3 (test code = 0.09 10*3/uL 0.03-0.39 711-2) BASO x10^3 (test code 0.04 10*3/uL 0.01-0.07 = 704-7) Lab Interpretation Abnormal (test code = 91481-7) [facility] WITH [id number] 03:24:00 Test Item Value Reference Range Interpretation [...] RDW-SD (test code = 41.0 fL 39-49.9 89622-1) RDW-CV (test code = 13.2 % 12-15.5 788-0) PLT (test code = See_Comment [Automated 777-3) message] The sy stem which generated this result transmitted reference range : 166 - 358 10*3/ ?L. The reference r elsi was not used to interpret this result as normal/abnormal . MPV (test code = 9.9 fL 9.5-12.9 71953-3) NRBC/100 WBC (test See_Comment [Automat ed code = 9254542386) message] The system which generated this result transmitted reference range : 0.0 - 10.0 /100 WBCs. The refer ence range was not u sed to interpret th is result as normal/abnormal . NRBC x10^3 (test code <0.01 See_Comment [Auto mated = 1053248174) message] The s ystem which generated this result transmitted reference range : 10*3/?L. The reference range was not used to interpret this result as normal/abnormal . GRAN MAT (NEUT) % 73.4 % (test code = 770-8) IMM GRAN % (test code 0.50 % = 8130909539) LYMPH % (test code = 18.3 % 736-9) MONO % (test code = 6.2 % 5905-5) EOS % (test code = 1.1 % 713-8) BASO % (test code = 0.5 % 706-2) GRAN MAT x10^3(ANC) 6.12 10*3/uL 1.88-7.09 (test code = 8802454445) IMM GRAN x10^3 (test 0.04 10*3/uL 0-0.06 code = 7093969692) LYMPH x10^3 (test code 1.53 10*3/uL 1.32-3.29 = 731-0) MONO x10^3 (test code 0.52 10*3/uL 0.33-0.92 = 742-7) EOS x10^3 (test code = 0.09 10*3/uL 0.03-0.39 711-2) BASO x10^3 (test code 0.04 10*3/uL 0.01-0.07 = 704-7) Lab Interpretation Abnormal (test code = 92968-0) [facility] [id number] 15:27:00 Test Item Value Reference Range Interpretation Comments POCT PREG (test code = 1605) Positive On board controls acceptable with C Yes Line (test code = 3574) POCT PREG LOT # (test code = 3575) POCT PREG TEST DATE (test code = 3576) [facility] URINALYSIS W/O SPECIFIC [id number] 15:27:00 Test Item Value Reference Range Interpretation [...] code = 3257) Neg Negative - Negative [facility]icsPO[facility] [id number] 15:27:00 Test Item Value Reference Range Interpretation Comments POCT PREG (test code = 1605) Positive On board controls acceptable with C Yes Line (test code = 3574) POCT PREG LOT # (test code = 3575) POCT PREG TEST DATE (test code = 3576) [facility] URIN[facility] W/O SPECIFIC [id number] 15:27:00 Test Item Value Reference Range Interpretation [...] code = 3257) Neg Negative - Negative [facility]
--- NOTE | 2022-11-13 22:34 | RAD REPORT ---
EXAM DESCRIPTION: RAD - Chest Single View - 11/13/2022 10:29 pm CLINICAL HISTORY: syncope Chest pain. COMPARISON: Chest Single View dated 01/25/2020; Chest Single View dated 03/06/2019 FINDINGS: Portable technique limits examination quality. The lungs are grossly clear. The heart is normal in size. No displaced fractures. IMPRESSION: No acute intrathoracic process suspected.
[2022-11-13] MEDS ORDERED: MECLIZINE HCL 12.5 MG TAB ONE (23:01)
[2022-11-13] MEDS ORDERED: NA CHLORIDE 0.9% 1,000 ML ONE (23:01)
[2022-11-13 23:27] LABS: Absolute Lymphocytes (CBC) 3.1 K/uL (0.7-4.9); Hematocrit 38.1 % (36.0-45.0); Lymphocytes % 40.8 % (15.3-44.8); MCV 82.6 fL (80-100); MPV 8.1 fL (7.6-11.3); RBC Red Blood Cell Count 4.61 M/uL (3.86-4.86)
[2022-11-13 23:38] LABS: BUN Blood Urea Nitrogen 20 mg/dL (7-18); Bicarbonate 27 mEq/L (21-32); Glomerular Filtration Rate 115 ml/min (=/>90); Glucose Level 103 mg/dL (74-106); Magnesium 2.1 mg/dL (1.6-2.4); Potassium 3.9 mEq/L (3.5-5.1); Sodium Level 136 mEq/L (136-145)
[2022-11-13 23:42] LABS: Troponin High Sensitivity < 3.0 pg/mL (<58.9)
[2022-11-14] MEDS ORDERED: CETIRIZINE HCL 5 MG TABLET ONE (00:05)
--- NOTE | 2022-11-14 01:09 | EDPHYS ---
Physician Documentation [facility] Name: Tyra Ribera Age: 31 yrs Sex: Female : 1990 Arrival Date: 11/13/2022 Time: 20:56 Bed 7 Private MD: ED Physician Thee Monge HPI: 11/13 23:00 This 31 yrs old Female presents to ER via Wheelchair with complaints of Headache, cp Numbness Of Face. 23:00 The patient complains of pain to the top of head and forehead. The patient describes cp the headache as aching, waxing and waning. 23:00 Onset: The symptoms/episode began/occurred 4 day(s) ago. Associated signs and symptoms: cp Pertinent positives: nausea, paresthesias, syncope weakness, Pertinent negatives: altered mental status, fever. Severity of symptoms: in the emergency department the pain is unchanged, despite home interventions. 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 - Social history:: Smoking status: Reported history of juuling and/or vaping. ROS: 23:05 Eyes: Negative for injury, pain, redness, and discharge. cp 23:05 Constitutional: Negative for body aches, chills, fever, poor PO intake. 23:05 ENT: Negative for drainage from ear(s), ear pain, sore throat, difficulty swallowing, difficulty handling secretions. 23:05 Neck: Negative for pain with movement, pain at rest, stiffness. 23:05 Cardiovascular: Negative for chest pain, edema, palpitations. 23:05 Respiratory: Negative for cough, shortness of breath, wheezing. 23:05 Abdomen/GI: Negative for abdominal pain, vomiting, diarrhea, constipation. 23:05 : Negative for urinary symptoms. 23:05 Neuro: Positive for dizziness, headache, syncope, tingling, weakness, Negative for altered mental status, gait disturbance, seizure activity, speech changes. 23:05 All other systems are negative. Exam: 23:10 Constitutional: The patient appears in no acute distress, alert, awake, cp non-diaphoretic, non-toxic, well developed, well nourished. 23:10 Head/Face: Normocephalic, atraumatic. cp 23:10 Eyes: Periorbital structures: appear normal, Pupils: equal, round, and reactive to light and accomodation, Extraocular movements: intact throughout, Conjunctiva: normal, no exudate, no injection, Sclera: no appreciated abnormality, Lids and lashes: appear normal, bilaterally. 23:10 ENT: External ear(s): are unremarkable, Ear canal(s): are normal, clear, TM's: dullness, bilaterally, Nose: is normal, Mouth: Lips: moist, Oral mucosa: pink and intact, moist, Posterior pharynx: is normal, airway is patent, no erythema, no exudate, Voice: is normal. 23:10 Neck: ROM/movement: is normal, is supple, without pain, no range of motions limitations, no meningismus. 23:10 Chest/axilla: Inspection: normal. 23:10 Cardiovascular: Rate: normal, Rhythm: regular, Edema: is not appreciated, JVD: is not appreciated. 23:10 Respiratory: the patient does not display signs of respiratory distress, Respirations: normal, no use of accessory muscles, no retractions, labored breathing, is not present, Breath sounds: are clear throughout, no decreased breath sounds, no stridor, no wheezing. 23:10 Abdomen/GI: Inspection: abdomen appears normal, Palpation: abdomen is soft and non-tender, in all quadrants. 23:10 Back: pain, is absent, ROM is normal. 23:10 Skin: cellulitis, is not appreciated, no rash present. 23:10 Neuro: Orientation: to person, place \T\ time. Mentation: able to follow commands, slow to respond, Motor: moves all fours, general weakness with no focal deficits, Sensation: no obvious gross deficits. Vital Signs: 21:31 BP 111 / 76; Pulse 67; Resp 16; Temp 98.3(O); Pulse Ox 97% on R/A; Weight 88.9 kg; kd3 Height 5 ft. 4 in. ; 22:07 BP 94 / 66; Pulse 57; Resp 16; Pulse Ox 96% on R/A; jb4 23:15 BP 100 / 80; Pulse 60; Resp 16; Pulse Ox 98% on R/A; jb4 11/14 00:00 BP 102 / 71; Pulse 59; Resp 16; Pulse Ox 98% on R/A; jb4 00:50 BP 108 / 65; Pulse 62; Resp 16; Pulse Ox 97% on R/A; jb4 11/13 21:31 Body Mass Index 33.64 (88.90 kg, 162.56 cm) kd3 MDM: 11/13 22:10 Patient medically screened. cp 23:00 Differential diagnosis: hypoglycemia, hyponatremia, intracerebral hemorrhage, cp meningitis, meningoencephalitis, migraine, subarachnoid bleed, tension headache. 11/14 01:05 Data reviewed: vital signs, nurses notes, lab test result(s), EKG, radiologic studies, cp CT scan, plain films. 01:05 Consideration of Admission/Observation Escalation of care including cp admission/observation considered. I considered the following discharge prescriptions or medication management in the emergency department Medications were administered in the Emergency Department. See MAR. Test considered but Not performed: MRI: brain. Counseling: I had a detailed discussion with the patient and/or guardian regarding: the historical points, exam findings, and any diagnostic results supporting the discharge/admit diagnosis, lab results, radiology results, the need for outpatient follow up, a neurologist, to return to the emergency department if symptoms worsen or persist or if there are any questions or concerns that arise at home. 11/13 22:19 Order name: Basic Metabolic Panel; Complete Time: 00:20 11/14 00:20 Interpretation: Normal except: CL 108; ANION GAP 4.9; BUN 20; CA 8.4. 11/13 22:19 Order name: CBC with Diff; Complete Time: 00:20 11/14 00:53 Interpretation: Reviewed. 11/13 22:19 Order name: Magnesium; Complete Time: 00:20 11/13 22:19 Order name: Troponin HS; Complete Time: 00:20 11/13 22:19 Order name: XRAY Chest (1 view); Complete Time: 00:20 cp 11/13 22:19 Order name: CT Head Brain wo Cont 11/13 22:19 Order name: EKG; Complete Time: 22:19 11/13 22:19 Order name: Cardiac monitoring; Complete Time: 22:38 11/13 22:19 Order name: EKG - Nurse/Tech; Complete Time: 22:38 cp 11/13 22:19 Order name: IV Saline Lock; Complete Time: 23:08 cp 11/13 22:19 Order name: Labs collected and sent; Complete Time: 23:08 cp 11/13 22:19 Order name: O2 Per Protocol; Complete Time: 22:38 cp 11/13 22:19 Order name: O2 Sat Monitoring; Complete Time: 22:38 cp Administered Medications: 11/13 23:00 Drug: NS 0.9% IV 1000 ml Route: IV; Rate: 1 bolus; Site: right antecubital; as6 23:00 Drug: Meclizine PO 25 mg Route: PO; as6 Disposition: 11/14 07:27 Co-signature as Attending Physician, Thee Monge MD I agree with the assessment and kdr plan of care. Disposition Summary: 11/14/22 01:08 Discharge Ordered Location: Home cp Problem: new cp Symptoms: have improved cp Condition: Stable cp Diagnosis - Dizziness and giddiness cp - Syncope cp - Headache cp Followup: cp - With: Jesus Jefferson MD - When: 2 - 3 days - Reason: Recheck today's complaints Discharge Instructions: - Discharge Summary Sheet cp - Dizziness cp - General Headache Without Cause cp - Syncope cp Forms: - Medication Reconciliation Form cp - Thank You Letter cp - Antibiotic Education cp - Prescription Opioid Use cp Prescriptions: - Meclizine 25 mg Oral Tablet - take 1 tablet by ORAL route every 8 hours As needed; 30 tablet; Refills: 0, cp Product Selection Permitted Signatures: Dispatcher [employer] EDMS Thee Monge MD MD kdr Page, Corey, PA PA cp Ariel Quinones RN RN as6 Indu Rutherford RN RN kd3 Corrections: (The following items were deleted from the chart) 11/15 01:17 11/14 23:05 Constitutional: Negative for body aches, chills, fever, poor PO intake, cp cp 11/15 01:17 11/14 23:05 Neuro: Positive for dizziness, headache, syncope, tingling, weakness, cp Negative for altered mental status, gait disturbance, seizure activity, speech changes, cp 11/15 01:17 11/14 23:05 Cardiovascular: Negative for chest pain, edema, palpitations, cp cp 11/15 00:11/14 23:05 Abdomen/GI: Negative for abdominal pain, vomiting, diarrhea, constipation, cp cp 11/15 00:11/14 23:05 Respiratory: Negative for cough, shortness of breath, wheezing, cp cp 11/15 00:11/14 23:05 ENT: Negative for drainage from ear(s), ear pain, sore throat, difficulty cp swallowing, difficulty handling secretions, cp 11/15 00:11/14 23:05 Eyes: Negative for injury, pain, redness, and discharge, cp cp 11/15 01:11/14 23:05 Neck: Negative for pain with movement, pain at rest, stiffness, cp cp 11/15 00:11/14 23:05 : Negative for urinary symptoms, cp cp 11/15 00:11/14 23:05 All other systems are negative, cp cp
--- NOTE | 2022-11-14 01:09 | ER ---
Nurse's Notes [facility] Name: Tyra Ribera Age: 31 yrs Sex: Female : 1990 Arrival Date: 11/13/2022 Time: 20:56 Bed 7 Private MD: Diagnosis: Dizziness and giddiness;Syncope;Headache Presentation: 11/13 21:31 Chief complaint: Patient states: I have had tingling, fatigue, dizziness and facial kd3 flushing with brain fog since Thursday. We went to the urgent care and they said she needs an MRI. I've been to the doctor and they did blood work and they said nothing was wrong. Coronavirus screen: Vaccine status:. Ebola Screen: No symptoms or risks identified at this time. Initial Sepsis Screen: Does the patient meet any 2 criteria? No. Patient's initial sepsis screen is negative. Does the patient have a suspected source of infection? No. Patient's initial sepsis screen is negative. Risk Assessment: Do you want to hurt yourself or someone else? Patient reports no desire to harm self or others. Onset of symptoms was November 13, 2022. 21:31 Method Of Arrival: Wheelchair kd3 21:31 Acuity: BREANNA 3 kd3 Triage Assessment: 21:34 Headache History: Denies prior headaches. General: Appears uncomfortable, Behavior is kd3 cooperative. Pain: Pain currently is 3 out of 10 on a pain scale. Pain began gradually, Also complains of photophobia. Neuro: Level of Consciousness is awake, alert, obeys commands, Oriented to person, place, time, situation. Respiratory: Airway is patent Trachea midline Respiratory effort is even, unlabored, Respiratory pattern is regular, symmetrical. DUMPER: 21:34 LMP N/A - control method kd3 Historical: - Allergies: 21:34 Latex, Natural Rubber; kd3 21:34 PENICILLINS (Upset stomach); kd3 - PSHx: 21:34 Gastric Bypass; Cholecystectomy; section; kd3 - Immunization history:: Adult Immunizations up to date. - Social history:: Smoking status: Reported history of juuling and/or vaping. Screenin/05 01:45 [facility] ED Fall Risk Assessment (Adult) History of falling in the last 3 months, jb4 including since admission No falls in past 3 months (0 pts) Confusion or Disorientation No (0 pts) Score/Fall Risk Level 0 - 2 = Low Risk Oriented to surroundings, Maintained a safe environment. Abuse screen: Denies threats or abuse. Nutritional screening: No deficits noted. Tuberculosis screening: No symptoms or risk factors identified. Assessment: 11/13 22:07 General: Appears in no apparent distress. uncomfortable, Behavior is calm, cooperative, jb4 appropriate for age. Pain: Complains of pain in Headache Pain does not radiate. Pain currently is 4 out of 10 on a pain scale. Quality of pain is described as pressure, Pain began 11/09/22. Neuro: Level of Consciousness is awake, alert, obeys commands, Oriented to person, place, time, situation. Cardiovascular: Patient's skin is warm and dry. Respiratory: Airway is patent Respiratory effort is even, unlabored, Respiratory pattern is regular, symmetrical. GI: No signs and/or symptoms were reported involving the gastrointestinal system. : No signs and/or symptoms were reported regarding the genitourinary system. EENT: No signs and/or symptoms were reported regarding the EENT system. Derm: Skin is intact, Skin is pink, warm \T\ dry. Musculoskeletal: Circulation, motion, and sensation intact. Range of motion: intact in all extremities. 23:00 Reassessment: Patient appears in no apparent distress at this time. Patient and/or jb4 family updated on plan of care and expected duration. Pain level reassessed. Patient is alert, oriented x 3, equal unlabored respirations, skin warm/dry/pink. 11/14 00:00 Reassessment: Patient appears in no apparent distress at this time. Patient and/or jb4 family updated on plan of care and expected duration. Pain level reassessed. Patient is alert, oriented x 3, equal unlabored respirations, skin warm/dry/pink. 01:45 Reassessment: Patient appears in no apparent distress at this time. Patient and/or jb4 family updated on plan of care and expected duration. Pain level reassessed. Patient is alert, oriented x 3, equal unlabored respirations, skin warm/dry/pink. Vital Signs: 11/13 21:31 BP 111 / 76; Pulse 67; Resp 16; Temp 98.3(O); Pulse Ox 97% on R/A; Weight 88.9 kg; kd3 Height 5 ft. 4 in. ; 22:07 BP 94 / 66; Pulse 57; Resp 16; Pulse Ox 96% on R/A; jb4 23:15 BP 100 / 80; Pulse 60; Resp 16; Pulse Ox 98% on R/A; jb4 11/14 00:00 BP 102 / 71; Pulse 59; Resp 16; Pulse Ox 98% on R/A; jb4 00:50 BP 108 / 65; Pulse 62; Resp 16; Pulse Ox 97% on R/A; jb4 11/13 21:31 Body Mass Index 33.64 (88.90 kg, 162.56 cm) kd3 ED Course: 11/13 21:01 Patient arrived in ED. jj6 21:34 Triage completed. kd3 21:34 Arm band placed on right wrist. kd3 21:58 Woo Chance, RN is Primary Nurse. jb4 22:10 Felton Ram PA is PHCP. cp 22:10 Thee Monge MD is Attending Physician. cp 22:31 XRAY Chest (1 view) In Process Unspecified. EDMS 23:09 Inserted saline lock: 20 gauge in right antecubital area, using aseptic technique. as6 Blood collected. 23:40 CT Head Brain wo Cont In Process Unspecified. EDMS 11/14 01:08 Jesus Jefferson MD is Referral Physician. cp 01:45 Patient has correct armband on for positive identification. Bed in low position. Call jb4 light in reach. Side rails up X 1. Client placed on continuous cardiac and pulse oximetry monitoring. NIBP monitoring applied. 01:45 No provider procedures requiring assistance completed. IV discontinued, intact, jb4 bleeding controlled, No redness/swelling at site. Pressure dressing applied. Administered Medications: 11/13 23:00 Drug: NS 0.9% IV 1000 ml Route: IV; Rate: 1 bolus; Site: right antecubital; as6 23:00 Drug: Meclizine PO 25 mg Route: PO; as6 Outcome: 11/14 01:08 Discharge ordered by . cp 01:45 Discharged to home via wheelchair, with family. jb4 01:45 Condition: stable 01:45 Discharge instructions given to patient, Instructed on discharge instructions, follow up and referral plans. medication usage, Demonstrated understanding of instructions, follow-up care, medications, Prescriptions given X 1. 01:47 Patient left the ED. jb4 Signatures: Dispatcher [employer] EDMS Felton Ram PA PA cp Bryson, James RN RN jb4 Gail Graham6 Ariel Quinones RN RN as6 Indu Rutherford RN RN kd3
[2022-11-14 02:11] VITALS: TEMP 98.3
[2022-11-14 02:15] VITALS: BP 108/65; O2SAT 97
--- NOTE | 2022-11-14 20:38 | RAD REPORT ---
EXAM DESCRIPTION: CT - Head Brain Wo Cont - 11/14/2022 6:30 am CLINICAL HISTORY: The patient is 31 years old and is Female; DIZZINESS TECHNIQUE: Axial computed tomography images of the head/brain without intravenous contrast. Sagitt al and coronal reformatted images were created and reviewed. This CT exam was performed using one o r more of the following dose reduction techniques: automated exposure control, adjustment of the mA and/or kV according to patient size, and/or use of iterative reconstruction technique. COMPARISON: No relevant prior studies available. FINDINGS: Brain: Unremarkable. No hemorrhage. No significant white matter disease. No edema. Ventricles: Unremarkable. No ventriculomegaly. Bones/joints: Unremarkable. No acute fracture. Soft tissues: Unremarkable. Sinuses: Unremarkable as visualized. Mastoid air cells: Unremarkable as visualized. No mastoid effusion. IMPRESSION: No acute intracranial abnormality. Electronically signed by: Cipriano Walden MD 11/14/2022 12:28 AM CDT Due to temporary technical issues with the PACS/Fluency reporting system, reports are being signed by the in house radiologists without review as a courtesy to insure prompt reporting. The interpreting radiologist is fully responsible for the content of the report.
--- NOTE | 2022-11-15 07:13 | EKG ---
Test Date: 2022-11-13 Test Time: 22:34:17 Account Director: ED MEASUREMENT RESULTS: Intervals: Rate: 53 NE: 168 QRSD: 96 QT: 446 QTc: 418 [place]: P: 7 NE: 168 QRS: 78 T: 44 INTERPRETIVE STATEMENTS: Sinus bradycardia Otherwise normal ECG No previous ECG available for comparison Electronically Signed On 11-15-22 07:09:46 CDT by Israel Llanos
== END 2022-11-14 01:47 | disposition home or self-care (01) ==
LOC: ER 20:56
DX: R51.9 Headache, unspecified (principal); R42 Dizziness and giddiness; R55 Syncope and collapse; Z88.0 Allergy status to penicillin; Z91.040 Latex allergy status; Z91.048 Other nonmedicinal substance allergy status
CPT/HCPCS: 93005; 85025; 80048; 36415; 83735; 84484; 70450; 71045; 99284; J8597; J7030

== ENCOUNTER 2023-05-01 07:41 | Day surgery (SDC) | payer OTHER ==
[2023-04-30 16:25] LABS: Absolute Lymphocytes (CBC) 2.6 K/uL (0.7-4.9); Hematocrit 40.5 % (36.0-45.0); Lymphocytes % 39.4 % (15.3-44.8); MCV 85.3 fL (80-100); MPV 8.2 fL (7.6-11.3); Platelets 260 thou/uL (152-406); RBC Red Blood Cell Count 4.75 M/uL (3.86-4.86)
[2023-04-30 16:31] LABS: Specific Gravity 1.015 (1.005-1.030)
[2023-04-30 16:42] LABS: Albumin 3.6 g/dL (3.4-5.0); Bilirubin Total 0.9 mg/dL (0.2-1.0); Potassium 4.1 mEq/L (3.5-5.1); Protein, Total 6.7 g/dL (6.4-8.2)
[2023-05-01] MEDS ORDERED: Ringers Lactate 1,000 ML IV ONE (08:11)
[2023-05-01 08:36] VITALS: O2SAT 100
[2023-05-01] MEDS ORDERED: LIDOCAINE 1% MPF 2 ML AMPULE ONE (08:55)
[2023-05-01] MEDS ORDERED: propofoL 200 MG/20 ML VIAL IV ONE (08:55)
[2023-05-01 11:46] VITALS: BP 110/60
[2023-05-01 11:49] VITALS: TEMP 97.9
== END 2023-05-01 10:01 | disposition home or self-care (01) ==
LOC: OR 07:41
PROVIDERS: ATTEND Surgery
PROC: 0DBF8ZX Excision of Right Large Intestine, Via Natural or Artificial Opening Endoscopic, Diagnostic (ICD-10-PCS; principal; 2023-05-01 09:45)
DX: K52.9 Noninfective gastroenteritis and colitis, unspecified (principal); R19.4 Change in bowel habit; R19.8 Other specified symptoms and signs involving the digestive system and abdomen; K64.8 Other hemorrhoids
CPT/HCPCS: 85025; 36415; 81025; 88305; 80053; 45380; J2704; J7120

== ENCOUNTER → 2023-07-22 | Emergency (ER) | payer OTHER ==
--- OUTSIDE RECORDS SUMMARY | 2023-07-22 10:37 | XMS REPORT | Continuity of Care Document ---
Author Name Unknown Address 1200 [facility]. [address] th[address] Address 1200 [facility] 1 495 [place] [address] Care Team Providers Care Tmh Teacher Name Role Phone LINDY GODWIN Primary Care Physician ROSEANNE Gonsalez Attending Clinician ROSEANNE Shabazz Attending Clinician CECIL Fernandez Attending Clinician Unavailab ADALI Mclain Attending Clinician Unavailab le [email or web address] Attending Clinician Unavaila ble LAB90 Attending Clinician Unavailable Enrike Yeboah I Attending Clinician Unavail able LINDY GODWIN Attending Clinician Unavail able Lindy Moy Attending Clinician + Doctor Unassigned, [place] Attending Clinician U navailable Visit, Geraldinemaria alejandra Nurse Attending Clinician Kwame Maki MD, Destini Attending Clinician + Ultrasound, Janeyyamil Attending Clinician UnavailAllen Ann MD Attending Clinician [phone] CHRISTINA THOMPSON Attending Clinician Unavailable Faculty, Huan Romero Mfm Attending Clinician Kwame Mace MD, Mike Kinney Attending Clinician [phone] Risk, Ezb-Tjsbl-Eb/High Attending Clinician Unav maurice CatinaAubree Garza Attending Clinician Rehana Hinds Attending Clinician [phone] aRndolph Szymanski Attending Clinician [phone] CHRISTINA THOMPSON Admitting Clinician Unavailable [email or web address] Admitting Clinician Unavaila ble Ekhaese, Obonoruma I Admitting Clinician Unavail able Rachel Maki MD, Destini Admitting Clinician + Payers Payer Name Policy Type Policy Number Effective Date Expirati on Date Source [employer] MEDICAID [id number] 2019 00:00:00 [facility] PPO [id number] 2020 00:00:00 [facility] 2 [id number] 00:00:00 Problems Condition Name Condition Details Condition Category Status Onset Date Resolution Date Last Treatment Date Treating Clinician Comments Source Sinus infection Sinus infection Disease Active 2020-0 9-25 00:00: 00 [facility] Breakthrou gh bleeding on Nexplanon Breakthrou gh bleeding on Nexplanon Disease Active 2020-0 8-13 00:00: 00 [facility] Nexplanon insertion Nexplanon insertion Disease Active 2020-0 7-30 00:00: 00 [facility] Nexplanon removal Nexplanon removal Disease Active 2020-0 7-30 00:00: 00 [facility] Other general counseling and advice for contracept richar management Other general counseling and advice for contracept richar management Disease Active 2020-0 7-23 00:00: 00 [facility] care and examinatio n of lactating mother care and examinatio n of lactating mother Disease Active 2020-0 4-01 00:00: 00 [facility] Morbid obesity with body mass index of 50 or higher Morbid obesity with body mass index of 50 or higher Disease Active 2020-0 3-10 00:00: 00 [facility] 37 weeks gestation of 37 weeks gestation of Disease Active 3 00:00: 00 [facility] Gestationa l hypertensi on, antepartum Gestationa l hypertensi on, antepartum Disease Active 310 00:00: 00 [facility] Morbid obesity with BMI of 45.0-49.9, adult Morbid obesity with BMI of 45.0-49.9, adult Disease Active 09-19 00:00: 00 [facility] URI (upper respirator y infection) URI (upper respirator y infection) Disease Active 2018-07 00:00: 00 [facility] Generalize d body aches Generalize d body aches Disease Active 2018-07 00:00: 00 [facility] Influenza B Influenza B Disease Active 2018-07 00:00: 00 [facility] Screening, , isoimmuniz ation Screening, , isoimmuniz ation Disease Active 2018-07 0 00:00: 00 [facility] BMI 50.0-59.9, adult BMI 50.0-59.9, adult Disease Active 2018-07 007 00:00: 00 [facility] Supervisio n of high-risk Supervisio n of high-risk Disease Active 01-26 00:00: 00 [facility] Multiparit y Multiparit y Disease Active 01-26 00:00: 00 [facility] History of section History of section Disease Active 01-26 00:00: 00 Overview: X2 pending ROR [facility] Obesity in Obesity in Disease Active 01-26 00:00: 00 [facility] Tobacco use during Tobacco use during Disease Active 201901-26 00:00: 00 [facility] Tobacco use Tobacco use Disease Active 201901-26 00:00: 00 [facility] Tobacco use Tobacco use Disease Active 01-26 00:00: 00 [facility] Allergies, Adverse Reactions, Alerts Allergy Name Allergy Type Status Severity Reaction(s) Onset Date Inactive Date Treating Clinician Comments Source Nonstero idal anti-inf lammator y drug [Other] Propensi ty to adverse reaction s Active 2022-07 0- 00:00: 00 Christine Jacobson - Externa l Penicill ins Propensi ty to adverse reaction s Active 2022-07 0 00:00: 00 Christine Gastelumold - Externa l Penicill ins DA Active U 8 00:00: 00 [facility] latex DA Active U 8 00:00: 00 [facility] Penicill ins DA Active U VOMITING 8 00:00: 00 [facility] latex DA Active U SWELLING 02-20 00:00: 00 [facility] Penicill in Propensi ty to adverse reaction s Active Nausea and/or Vomiting 0 01-26 00:00: 00 [facility] Penicill in Propensi ty to adverse reaction s Active Nausea and/or Vomiting 0 01-26 00:00: 00 [facility] PENICILL IN DRUG INGREDI Active N/V 0 01-26 00:00: 00 [facility] Social History Social Habit Start Date Stop Date Quantity Comments Source ASSERTION 2019-01-13 00:00:00 [facility] Sexual orientation Enrique Jacobson - External History of tobacco use Christine Jacobson - External History SDOH Alcohol Binge [facility] Exposure to SARS-CoV-2 (event) Not sure [facility] History SDOH Alcohol Std Drinks [facility] History of Social function 2023-04-20 00:00:00 2023-04-20 00:00:00 Christine Jacobson - External Tobacco use and exposure 2020-08-09 00:00:00 2020-08-09 00:00:00 Never used [facility] Cigarettes smoked current (pack per day) - Reported 2020-08-09 00:00:00 2020-08-09 00:00:00 [facility] Alcohol intake 2020-08-09 00:00:00 2020-08-09 00:00:00 Ex-drinker (finding) [facility] Tobacco Comment 2020-02-02 00:00:00 2020-02-02 00:00:00 1 pack a day [facility] History SDOH Alcohol Frequency 2019-01-26 00:00:00 2019-01-26 00:00:00 1 [facility] Sex Assigned At 1990 00:00:00 1990 00:00:00 Christine Juarez External Smoking Status Start Date Stop Date Source Smokes tobacco daily 2023-04-20 00:00:00 Christine Juarez External Medications Ordered Medication Name Filled Medication Name Start Date Stop Date Current Medication? Ordering Clinician Indication Dosage Frequency Signature (SIG) Comments Components Source Gabapentin 100 MG oral Capsule 2022-07 00:00: 00 Yes [id number] 100mg Take 1 capsule (100 mg total) by mouth 3 times daily. Christine tyler Meclizine HCl 25 MG oral Tablet 2022-07 00:00: 00 Yes [id number] 25mg [id number] 3D Take 1 tablet (25 mg total) by mouth 3 times daily as needed. Christine tyler Pregabalin 50 MG oral Capsule 03-02 00:00: 00 04-20 00:00 :00 No Christine tyler Phentermine HCl 37.5 MG oral Tablet 02-24 00:00: 00 04-20 00:00 :00 No Christine tyler levonorgest rel-ethinyl estradiol (SRONYX) 0.1-20 mg-mcg per tablet 08-09 00:00: 00 Yes [id number] 1{tbl} Take 1 tablet by mouth daily. [facility] levonorgest rel-ethinyl estradiol (SRONYX) 0.1-20 mg-mcg per tablet 08-09 00:00: 00 Yes [id number] 1{tbl} Take 1 tablet by mouth daily. [facility] levonorgest rel-ethinyl estradiol (SRONYX) 0.1-20 mg-mcg per tablet 08-09 00:00: 00 Yes [id number] 1{tbl} Take 1 tablet by mouth daily. [facility] levonorgest rel-ethinyl estradiol (SRONYX) 0.1-20 mg-mcg per tablet 08-09 00:00: 00 Yes [id number] 1{tbl} Take 1 tablet by mouth daily. [facility] azithromyci n (ZITHROMAX Z-THA) 250 mg tablet 04-06 00:00: 00 Yes [id number] 250mg Take 1 tablet by mouth daily. Take 500 mg day 1, then 250 mg days 2 to 5. [facility] azithromyci n (ZITHROMAX Z-THA) 250 mg tablet 04-06 00:00: 00 Yes [id number] 250mg Take 1 tablet by mouth daily. Take 500 mg day 1, then 250 mg days 2 to 5. [facility] azithromyci n (ZITHROMAX Z-THA) 250 mg tablet 04-06 00:00: 00 Yes [id number] 250mg Take 1 tablet by mouth daily. Take 500 mg day 1, then 250 mg days 2 to 5. [facility] azithromyci n (ZITHROMAX Z-THA) 250 mg tablet 04-06 00:00: 00 Yes [id number] 250mg Take 1 tablet by mouth daily. Take 500 mg day 1, then 250 mg days 2 to 5. [facility] azithromyci n (ZITHROMAX Z-THA) 250 mg tablet 04-06 00:00: 00 Yes [id number] 250mg Take 1 tablet by mouth daily. Take 500 mg day 1, then 250 mg days 2 to 5. [facility] azithromyci n (ZITHROMAX Z-THA) 250 mg tablet 04-06 00:00: 00 Yes [id number] 250mg Take 1 tablet by mouth daily. Take 500 mg day 1, then 250 mg days 2 to 5. [facility] azithromyci n (ZITHROMAX Z-THA) 250 mg tablet 9-25 00:00: 00 Yes [id number] 250mg Take 1 tablet by mouth daily. Take 500 mg day 1, then 250 mg days 2 to 5. [facility] estradiol 2 mg tablet 8- 00:00: 00 03-16 04:59 :00 No [id number] 2mg Take 1 tablet by mouth daily for 21 days. [facility] estradiol 2 mg tablet - 00:00: 03-16 04:59 :00 No [id number] 2mg Take 1 tablet by mouth daily for 21 days. [facility] etonogestre l (NEXPLANON) implant 68 mg 02-08 15:30: 00 02-08 14:28 :00 No 68mg [facility] etonogestre l (NEXPLANON) implant 68 mg 02-08 15:30: 00 02-08 14:28 :00 No 68mg 68 mg, Subdermal, ONCE NOW, 1 dose, Denisse 02/09/20 at 1030, Routine
Use approved by: M[employer]UAL [employer]D ACCOUNTANT [facility] etonogestre l (NEXPLANON) implant 68 mg 02-08 15:30: 00 02-08 14:28 :00 No 68mg [facility] etonogestre l (NEXPLANON) implant 68 mg 02-08 15:30: 00 02-08 14:28 :00 No 68mg 68 mg, Subdermal, ONCE NOW, 1 dose, Denisse 02/09/20 at 1030, Routine
Use approved by: [employer]D ACCOUNT[employer] [facility] etonogestre l (NEXPLANON) implant 68 mg 02-08 15:30: 00 02-08 14:28 :00 No 68mg [facility] etonogestre l (NEXPLANON) implant 68 mg 02-08 15:30: 00 02-08 14:28 :00 No 68mg 68 mg, Subdermal, ONCE NOW, 1 dose, Denisse 02/09/20 at 1030, Routine
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 medroxyPROG ESTERone (DEPO-PROVE RA) injection 150 mg 2020-0 5-05 15:30: 00 Yes [id number] 150mg 150 mg, Intramuscu lar, [id number], First dose on Thu11/15/19 at 1030, Until Discontinu ed, Routine [facility] it[facility] medroxyPROG ESTERone (DEPO-PROVE RA) injection 150 mg 2020-0 5-05 15:30: 00 Yes [id number] 150mg [facility] medroxyPROG ESTERone (DEPO-PROVE RA) injection 150 mg 2020-0 5-05 15:30: 00 Yes [id number] 150mg [facility] medroxyPROG ESTERone (DEPO-PROVE RA) injection 150 mg 2020-0 5-05 15:30: 00 Yes [id number] 150mg [facility] medroxyPROG ESTERone (DEPO-PROVE RA) injection 150 mg 2020-0 5-05 15:30: 00 Yes [id number] 150mg [facility] medroxyPROG ESTERone (DEPO-PROVE RA) injection 150 mg 2020-0 5-05 15:30: 00 Yes [id number] 150mg [facility] medroxyPROG ESTERone (DEPO-PROVE RA) injection 150 mg 2020-0 5-05 15:30: 00 Yes [id number] 150mg [facility] medroxyPROG ESTERone (DEPO-PROVE RA) injection 150 mg 2020-0 5-05 15:30: 00 Yes [id number] 150mg [facility] medroxyPROG ESTERone (DEPO-PROVE RA) injection 150 mg 2020-0 5-05 15:30: 00 Yes [id number] 150mg [facility] medroxyPROG ESTERone (DEPO-PROVE RA) injection 150 mg 2020-0 5-05 15:30: 00 Yes [id number] [facility]mg [facility] medroxyPROG ESTERone (DEPO-PROVE RA) injection 150 mg 05 15:30: 00 Yes [id number] 150mg [facility] medroxyPROG ESTERone (DEPO-PROVE RA) injection 150 mg 05 15:30: 00 Yes [id number] 150[facility] (DEPO-PROVE RA) injection 150 mg 11-14 15:30: 00 Yes [id number] 150mg [facility] medroxyPROG ESTERone (DEPO-PROVE RA) injection 150 mg 11-14 15:30: 00 Yes [id number] 150mg [facility] medroxyPROG ESTERone (DEPO-PROVE RA) injection 150 mg 11-14 15:30: 00 Yes [id number] 150mg [facility] medroxyPROG ESTERone (DEPO-PROVE RA) injection 150 mg 11-14 15:30: 00 Yes [id number] 150mg [facility] medroxyPROG ESTERone (DEPO-PROVE RA) injection 150 mg 11-14 15:30: 00 Yes [id number] 150mg [facility] benzocaine- menthol (CEPACOL SORE THROAT (DEANNA-MEN)) lozenge 1 Lozenge 09-21 17:42: 16 Yes 1{lozen ge} 1 Lozenge, Oral, Q4HPRN, Starting Denisse 09/22/19 at 1242, Until Discontinu ed, Routine, Sore throat [facility] vitamin w/FA tablet 09-21 00:00: 00 Yes [id number] 1{tbl} Take 1 tablet by mouth daily. May substitute for what is in stock and covered by patient plan [facility] docusate calcium 240 mg capsule 09-21 00:00: 00 Yes [id number] 240mg Take 1 capsule by mouth once daily as needed for Constipati on. May substitute for what is in stock and covered by patient plan [facility] ferrous sulfate 325 mg (65 mg iron) tablet 09-21 00:00: 00 Yes [id number] 325mg Take 1 tablet by mouth 2 (two) times daily. May substitute for what is in stock and covered by patient plan [facility] ibuprofen 600 mg tablet 09-21 00:00: 00 Yes [id number] 600mg Take 1 tablet by mouth every 6 (six) hours as needed (Pain). Take with food or milk. [facility] vitamin w/FA tablet 09-21 00:00: 00 Yes [id number] 1{tbl} Take 1 tablet by mouth daily. May substitute for what is in stock and covered by patient plan [facility] docusate calcium 240 mg capsule 09-21 00:00: 00 Yes [id number] 240mg Take 1 capsule by mouth once daily as needed for Constipati on. May substitute for what is in stock and covered by patient plan [facility] ferrous sulfate 325 mg (65 mg iron) tablet 09-21 00:00: 00 Yes [id number] 325mg Take 1 tablet by mouth 2 (two) times daily. May substitute for what is in stock and covered by patient plan [facility] ibuprofen 600 mg tablet 09-21 00:00: 00 Yes [id number] 600mg Take 1 tablet by mouth every 6 (six) hours as needed (Pain). Take with food or milk. [facility] vitamin w/FA tablet 09-21 00:00: 00 Yes [id number] 1{tbl} Take 1 tablet by mouth daily. May substitute for what is in stock and covered by patient plan [facility] docusate calcium 240 mg capsule 09-21 00:00: 00 Yes [id number] 240mg Take 1 capsule by mouth once daily as needed for Constipati on. May substitute for what is in stock and covered by patient plan [facility] ferrous sulfate 325 mg (65 mg iron) tablet 09-21 00:00: 00 Yes [id number] 325mg Take 1 tablet by mouth 2 (two) times daily. May substitute for what is in stock and covered by patient plan [facility] ibuprofen 600 mg tablet 09-21 00:00: 00 Yes [id number] 600mg Take 1 tablet by mouth every 6 (six) hours as needed (Pain). Take with food or milk. [facility] vitamin w/FA tablet 09-21 00:00: 00 Yes [id number] 1{tbl} Take 1 tablet by mouth daily. May substitute for what is in stock and covered by patient plan [facility] docusate calcium 240 mg capsule 09-21 00:00: 00 Yes [id number] 240mg Take 1 capsule by mouth once daily as needed for Constipati on. May substitute for what is in stock and covered by patient plan [facility] ferrous sulfate 325 mg (65 mg iron) tablet 09-21 00:00: 00 Yes [id number] 325mg Take 1 tablet by mouth 2 (two) times daily. May substitute for what is in stock and covered by patient plan [facility] ibuprofen 600 mg tablet 09-21 00:00: 00 Yes [id number] 600mg Take 1 tablet by mouth every 6 (six) hours as needed (Pain). Take with food or milk. [facility] vitamin w/FA tablet 09-21 00:00: 00 Yes [id number] 1{tbl} Take 1 tablet by mouth daily. May substitute for what is in stock and covered by patient plan [facility] docusate calcium 240 mg capsule 09-21 00:00: 00 Yes [id number] 240mg Take 1 capsule by mouth once daily as needed for Constipati on. May substitute for what is in stock and covered by patient plan [facility] ferrous sulfate 325 mg (65 mg iron) tablet 09-21 00:00: 00 Yes [id number] 325mg Take 1 tablet by mouth 2 (two) times daily. May substitute for what is in stock and covered by patient plan [facility] ibuprofen 600 mg tablet 09-21 00:00: 00 Yes [id number] 600mg Take 1 tablet by mouth every 6 (six) hours as needed (Pain). Take with food or milk. [facility] vitamin w/FA tablet 2019-09-21 00:00: 00 Yes [id number] 1{tbl} Take 1 tablet by mouth daily. May substitute for what is in stock and covered by patient plan [facility] docusate calcium 240 mg capsule 09-21 00:00: 00 Yes [id number] 240mg Take 1 capsule by mouth once daily as needed for Constipati on. May substitute for what is in stock and covered by patient plan [facility] ferrous sulfate 325 mg (65 mg iron) tablet 09-21 00:00: 00 Yes [id number] 325mg Take 1 tablet by mouth 2 (two) times daily. May substitute for what is in stock and covered by patient plan [facility] ibuprofen 600 mg tablet 09-21 00:00: 00 Yes [id number] 600mg Take 1 tablet by mouth every 6 (six) hours as needed (Pain). Take with food or milk. [facility] vitamin w/FA tablet 09-21 00:00: 00 Yes [id number] 1{tbl} Take 1 tablet by mouth daily. May substitute for what is in stock and covered by patient plan [facility] docusate calcium 240 mg capsule 09-21 00:00: 00 Yes [id number] 240mg Take 1 capsule by mouth once daily as needed for Constipati on. May substitute for what is in stock and covered by patient plan [facility] ferrous sulfate 325 mg (65 mg iron) tablet 09-21 00:00: 00 Yes [id number] 325mg Take 1 tablet by mouth 2 (two) times daily. May substitute for what is in stock and covered by patient plan [facility] ibuprofen 600 mg tablet 09-21 00:00: 00 Yes [id number] 600mg Take 1 tablet by mouth every 6 (six) hours as needed (Pain). Take with food or milk. [facility] vitamin w/FA tablet 09-21 00:00: 00 Yes [id number] 1{tbl} Take 1 tablet by mouth daily. May substitute for what is in stock and covered by patient plan [facility] docusate calcium 240 mg capsule 09-21 00:00: 00 Yes [id number] 240mg Take 1 capsule by mouth once daily as needed for Constipati on. May substitute for what is in stock and covered by patient plan [facility] ferrous sulfate 325 mg (65 mg iron) tablet 09-21 00:00: 00 Yes [id number] 325mg Take 1 tablet by mouth 2 (two) times daily. May substitute for what is in stock and covered by patient plan [facility] ibuprofen 600 mg tablet 09-21 00:00: 00 Yes [id number] 600mg Take 1 tablet by mouth every 6 (six) hours as needed (Pain). Take with food or milk. [facility] vitamin w/FA tablet 09-21 00:00: 00 Yes [id number] 1{tbl} Take 1 tablet by mouth daily. May substitute for what is in stock and covered by patient plan [facility] docusate calcium 240 mg capsule 09-21 00:00: 00 Yes [id number] 240mg Take 1 capsule by mouth once daily as needed for Constipati on. May substitute for what is in stock and covered by patient plan [facility] ferrous sulfate 325 mg (65 mg iron) tablet 09-21 00:00: 00 Yes [id number] 325mg Take 1 tablet by mouth 2 (two) times daily. May substitute for what is in stock and covered by patient plan [facility] ibuprofen 600 mg tablet 09-21 00:00: 00 Yes [id number] 600mg Take 1 tablet by mouth every 6 (six) hours as needed (Pain). Take with food or milk. [facility] vitamin w/FA tablet 09-21 00:00: 00 Yes [id number] 1{tbl} Take 1 tablet by mouth daily. May substitute for what is in stock and covered by patient plan [facility] docusate calcium 240 mg capsule 09-21 00:00: 00 Yes [id number] 240mg Take 1 capsule by mouth once daily as needed for Constipati on. May substitute for what is in stock and covered by patient plan [facility] ferrous sulfate 325 mg (65 mg iron) tablet 09-21 00:00: 00 Yes [id number] 325mg Take 1 tablet by mouth 2 (two) times daily. May substitute for what is in stock and covered by patient plan [facility] ibuprofen 600 mg tablet 09-21 00:00: 00 Yes [id number] 600mg Take 1 tablet by mouth every 6 (six) hours as needed (Pain). Take with food or milk. [facility] vitamin w/FA tablet 09-21 00:00: 00 Yes [id number] 1{tbl} Take 1 tablet by mouth daily. May substitute for what is in stock and covered by patient plan [facility] docusate calcium 240 mg capsule 09-21 00:00: 00 Yes [id number] 240mg Take 1 capsule by mouth once daily as needed for Constipati on. May substitute for what is in stock and covered by patient plan [facility] ferrous sulfate 325 mg (65 mg iron) tablet 09-21 00:00: 00 Yes [id number] 325mg Take 1 tablet by mouth 2 (two) times daily. May substitute for what is in stock and covered by patient plan [facility] ibuprofen 600 mg tablet 09-21 00:00: 00 Yes [id number] 600mg Take 1 tablet by mouth every 6 (six) hours as needed (Pain). Take with food or milk. [facility] vitamin w/FA tablet 09-21 00:00: 00 Yes [id number] 1{tbl} Take 1 tablet by mouth daily. May substitute for what is in stock and covered by patient plan [facility] docusate calcium 240 mg capsule 09-21 00:00: 00 Yes [id number] 240mg Take 1 capsule by mouth once daily as needed for Constipati on. May substitute for what is in stock and covered by patient plan [facility] ferrous sulfate 325 mg (65 mg iron) tablet 09-21 00:00: 00 Yes [id number] 325mg Take 1 tablet by mouth 2 (two) times daily. May substitute for what is in stock and covered by patient plan [facility] ibuprofen 600 mg tablet 09-21 00:00: 00 Yes [id number] 600mg Take 1 tablet by mouth every 6 (six) hours as needed (Pain). Take with food or milk. [facility] vitamin w/FA tablet 09-21 00:00: 00 Yes [id number] 1{tbl} Take 1 tablet by mouth daily. May substitute for what is in stock and covered by patient plan [facility] docusate calcium 240 mg capsule 09-21 00:00: 00 Yes [id number] 240mg Take 1 capsule by mouth once daily as needed for Constipati on. May substitute for what is in stock and covered by patient plan [facility] ferrous sulfate 325 mg (65 mg iron) tablet 09-21 00:00: 00 Yes [id number] 325mg Take 1 tablet by mouth 2 (two) times daily. May substitute for what is in stock and covered by patient plan [facility] ibuprofen 600 mg tablet 09-21 00:00: 00 Yes [id number] 600mg Take 1 tablet by mouth every 6 (six) hours as needed (Pain). Take with food or milk. [facility] vitamin w/FA tablet 09-21 00:00: 00 Yes [id number] 1{tbl} Take 1 tablet by mouth daily. May substitute for what is in stock and covered by patient plan [facility] docusate calcium 240 mg capsule 09-21 00:00: 00 Yes [id number] 240mg Take 1 capsule by mouth once daily as needed for Constipati on. May substitute for what is in stock and covered by patient plan [facility] ferrous sulfate 325 mg (65 mg iron) tablet 09-21 00:00: 00 Yes [id number] 325mg Take 1 tablet by mouth 2 (two) times daily. May substitute for what is in stock and covered by patient plan [facility] ibuprofen 600 mg tablet 09-21 00:00: 00 Yes [id number] 600mg Take 1 tablet by mouth every 6 (six) hours as needed (Pain). Take with food or milk. [facility] vitamin w/FA tablet 09-21 00:00: 00 Yes [id number] 1{tbl} Take 1 tablet by mouth daily. May substitute for what is in stock and covered by patient plan [facility] docusate calcium 240 mg capsule 09-21 00:00: 00 Yes [id number] 240mg Take 1 capsule by mouth once daily as needed for Constipati on. May substitute for what is in stock and covered by patient plan [facility] ferrous sulfate 325 mg (65 mg iron) tablet 09-21 00:00: 00 Yes [id number] 325mg Take 1 tablet by mouth 2 (two) times daily. May substitute for what is in stock and covered by patient plan [facility] ibuprofen 600 mg tablet 09-21 00:00: 00 Yes [id number] 600mg Take 1 tablet by mouth every 6 (six) hours as needed (Pain). Take with food or milk. [facility] vitamin w/FA tablet 09-21 00:00: 00 Yes [id number] 1{tbl} Take 1 tablet by mouth daily. May substitute for what is in stock and covered by patient plan [facility] docusate calcium 240 mg capsule 09-21 00:00: 00 Yes [id number] 240mg Take 1 capsule by mouth once daily as needed for Constipati on. May substitute for what is in stock and covered by patient plan [facility] ferrous sulfate 325 mg (65 mg iron) tablet 09-21 00:00: 00 Yes [id number] 325mg Take 1 tablet by mouth 2 (two) times daily. May substitute for what is in stock and covered by patient plan [facility] ibuprofen 600 mg tablet 09-21 00:00: 00 Yes [id number] 600mg Take 1 tablet by mouth every 6 (six) hours as needed (Pain). Take with food or milk. [facility] vitamin w/FA tablet 09-21 00:00: 00 Yes [id number] 1{tbl} Take 1 tablet by mouth daily. May substitute for what is in stock and covered by patient plan [facility] docusate calcium 240 mg capsule 09-21 00:00: 00 Yes [id number] 240mg Take 1 capsule by mouth once daily as needed for Constipati on. May substitute for what is in stock and covered by patient plan [facility] ferrous sulfate 325 mg (65 mg iron) tablet 09-21 00:00: 00 Yes [id number] 325mg Take 1 tablet by mouth 2 (two) times daily. May substitute for what is in stock and covered by patient plan [facility] ibuprofen 600 mg tablet 09-21 00:00: 00 Yes [id number] 600mg Take 1 tablet by mouth every 6 (six) hours as needed (Pain). Take with food or milk. [facility] vitamin w/FA tablet 09-21 00:00: 00 Yes [id number] 1{tbl} Take 1 tablet by mouth daily. May substitute for what is in stock and covered by patient plan [facility] docusate calcium 240 mg capsule 09-21 00:00: 00 Yes [id number] 240mg Take 1 capsule by mouth once daily as needed for Constipati on. May substitute for what is in stock and covered by patient plan [facility] ferrous sulfate 325 mg (65 mg iron) tablet 09-21 00:00: 00 Yes [id number] 325mg Take 1 tablet by mouth 2 (two) times daily. May substitute for what is in stock and covered by patient plan [facility] ibuprofen 600 mg tablet 09-21 00:00: 00 Yes [id number] 600mg Take 1 tablet by mouth every 6 (six) hours as needed (Pain). Take with food or milk. [facility] vitamin w/FA tablet 09-21 00:00: 00 Yes [id number] 1{tbl} Take 1 tablet by mouth daily. May substitute for what is in stock and covered by patient plan [facility] docusate calcium 240 mg capsule 09-21 00:00: 00 Yes [id number] 240mg Take 1 capsule by mouth once daily as needed for Constipati on. May substitute for what is in stock and covered by patient plan [facility] ferrous sulfate 325 mg (65 mg iron) tablet 09-21 00:00: 00 Yes [id number] 325mg Take 1 tablet by mouth 2 (two) times daily. May substitute for what is in stock and covered by patient plan [facility] ibuprofen 600 mg tablet 09-21 00:00: 00 Yes [id number] 600mg Take 1 tablet by mouth every 6 (six) hours as needed (Pain). Take with food or milk. [facility] vitamin w/FA tablet 09-21 00:00: 00 Yes [id number] 1{tbl} Take 1 tablet by mouth daily. May substitute for what is in stock and covered by patient plan [facility] docusate calcium 240 mg capsule 09-21 00:00: 00 Yes [id number] 240mg Take 1 capsule by mouth once daily as needed for Constipati on. May substitute for what is in stock and covered by patient plan [facility] ferrous sulfate 325 mg (65 mg iron) tablet 09-21 00:00: 00 Yes [id number] 325mg Take 1 tablet by mouth 2 (two) times daily. May substitute for what is in stock and covered by patient plan [facility] ibuprofen 600 mg tablet 09-21 00:00: 00 Yes [id number] 600mg Take 1 tablet by mouth every 6 (six) hours as needed (Pain). Take with food or milk. [facility] vitamin w/FA tablet 09-21 00:00: 00 Yes [id number] 1{tbl} Take 1 tablet by mouth daily. May substitute for what is in stock and covered by patient plan [facility] docusate calcium 240 mg capsule 09-21 00:00: 00 Yes [id number] 240mg Take 1 capsule by mouth once daily as needed for Constipati on. May substitute for what is in stock and covered by patient plan [facility] ferrous sulfate 325 mg (65 mg iron) tablet 09-21 00:00: 00 Yes [id number] 325mg Take 1 tablet by mouth 2 (two) times daily. May substitute for what is in stock and covered by patient plan [facility] ibuprofen 600 mg tablet 09-21 00:00: 00 Yes [id number] 600mg Take 1 tablet by mouth every 6 (six) hours as needed (Pain). Take with food or milk. [facility] vitamin w/FA tablet 09-21 00:00: 00 Yes [id number] 1{tbl} Take 1 tablet by mouth daily. May substitute for what is in stock and covered by patient plan [facility] docusate calcium 240 mg capsule 09-21 00:00: 00 Yes [id number] 240mg Take 1 capsule by mouth once daily as needed for Constipati on. May substitute for what is in stock and covered by patient plan [facility] ferrous sulfate 325 mg (65 mg iron) tablet 09-21 00:00: 00 Yes [id number] 325mg Take 1 tablet by mouth 2 (two) times daily. May substitute for what is in stock and covered by patient plan [facility] ibuprofen 600 mg tablet 09-21 00:00: 00 Yes [id number] 600mg Take 1 tablet by mouth every 6 (six) hours as needed (Pain). Take with food or milk. [facility] vitamin w/FA tablet 09-21 00:00: 00 Yes [id number] 1{tbl} Take 1 tablet by mouth daily. May substitute for what is in stock and covered by patient plan [facility] docusate calcium 240 mg capsule 09-21 00:00: 00 Yes [id number] 240mg Take 1 capsule by mouth once daily as needed for Constipati on. May substitute for what is in stock and covered by patient plan [facility] ferrous sulfate 325 mg (65 mg iron) tablet 09-21 00:00: 00 Yes [id number] 325mg Take 1 tablet by mouth 2 (two) times daily. May substitute for what is in stock and covered by patient plan [facility] ibuprofen 600 mg tablet 09-21 00:00: 00 Yes [id number] 600mg Take 1 tablet by mouth every 6 (six) hours as needed (Pain). Take with food or milk. [facility] HYDROcodone -acetaminop hen 5-325 mg tablet 09-21 00:00: 09-29 04:59 :00 No [id number] 1{tbl} Take 1 tablet by mouth every 6 (six) hours as needed (Pain scale > 4) for up to 7 days. Do not exceed 3 grams of acetaminop hen in 24 hours. [facility] HYDROcodone -acetaminop hen 5-325 mg tablet 09-21 00:00: 00 09-29 04:59 :00 No [id number] 1{tbl} Take 1 tablet by mouth every 6 (six) hours as needed (Pain scale > 4) for up to 7 days. Do not exceed 3 grams of acetaminop hen in 24 hours. [facility] rho(D) immune globulin (RHOGAM) syringe 300 mcg 09-20 02:59: 46 Yes 300ug 300 mcg, Intramuscu lar, ONCE, For 1 dose, Conditiona l, Routine [facility] human papillomav vac,9-aide(P F) (GARDASIL-9 ) syringe 0.5 mL 09-20 02:59: 41 Yes .5mL 0.5 mL, Intramuscu lar, ONCE-PRIOR TO DISCHARGE, 1 dose, Starting Thu09/20/19 at 2158, Until Discontinu ed, Routine, Give vaccine prior to discharge [facility] HYDROcodone -acetaminop hen (NORCO 5) 5-325 mg tablet 2 tablet 09-20 02:59: 41 Yes 2{tbl} 2 tablet, Oral, Q6HPRN, Starting Thu09/20/19 at 2158, Until Discontinu ed, Routine, Pain (scale 7-10), If uncontroll ed by Ibuprofen [facility] HYDROcodone -acetaminop hen (NORCO 5) 5-325 mg tablet 1 tablet 09-20 02:59: 41 Yes 1{tbl} 1 tablet, Oral, Q6HPRN, Starting Thu09/20/19 at 2158, Until Discontinu ed, Routine, Pain (scale 4-6), If uncontroll ed by Ibuprofen [facility] ibuprofen (IBU) tablet 600 mg 09-20 02:59: 41 Yes 600mg 600 mg, Oral, Q6HPRN, Starting Thu09/20/19 at 2158, Until Discontinu ed, Routine, Pain (scale 1-3) [facility] ondansetron (ZOFRAN (PF)) injection 4 mg 09-20 02:59: 41 Yes 4mg 4 mg, Slow IV Push, Q8HPRN, Starting Thu09/20/19 at 2158, Until Discontinu ed, Routine, Nausea and Vomiting (N/V) [facility] simethicone (GAS RELIEF (SIMETHICON E)) chewable tablet 160 mg 09-20 02:59: 41 Yes 160mg 160 mg, Oral, PC+HSPRN, Starting Thu09/20/19 at 2158, Until Discontinu ed, Routine, Gas [facility] magnesium hydroxide (MILK OF MAGNESIA) 400 mg/5 mL suspension 30 mL 09-20 02:59: 41 Yes 30mL 30 mL, Oral, QDAILYPRN, Starting Thu09/20/19 at 2158, Until Discontinu ed, Routine, Constipati on [facility] diphenhydrA MINE-0.9 % sod.chlr (BENADRYL) 25 mg/50 mL piggyback 25 mg 09-20 02:59: 40 Yes 25mg 25 mg, IV Piggyback, Administer over 30 Minutes, Q6HPRN, 1 dose, Starting Thu09/20/19 at 2158, Until Discontinu ed, Routine, Itching [facility] diphenhydrA MINE (BENADRYL) tablet 25 mg 09-20 02:59: 40 Yes 25mg 25 mg, Oral, Q6HPRN, Starting Thu09/20/19 at 2158, Until Discontinu ed, Routine, Sleep, Itching [facility] bisacodyL (DULCOLAX) suppository 10 mg 09-20 02:59: 40 Yes 10mg 10 mg, Rectal, QDAILYPRN, Starting Thu09/20/19 at 2158, Until Discontinu ed, Routine, Constipati on [facility] docusate calcium (SURFAK) capsule 240 mg 09-20 02:59: 40 Yes 240mg 240 mg, Oral, QDAILYPRN, Starting 09/20/19 at 2159, Until Discontinu ed, Routine, Constipati on [facility] naloxone (NARCAN) injection 0.4 mg 09-20 01:12: 35 09-22 01:11 :35 No .4mg 0.4 mg, Slow IV Push, PRN - SEE INSTRUCTIO NS, Starting 09/20/19 at 2011, Until Denisse 09/22/19 at 2010, Routine, Analgesia Recovery, PACU [facility] ketorolac (TORADOL) injection 30 mg 09-20 01:12: 35 09-20 01:45 :00 No 30mg 30 mg, Slow IV Push, PRN, 1 dose, Starting 09/20/19 at 2011, Until 09/20/19 at 2044, Routine, Pain (scale 7-10), PACU
Fa culty member approving Restricted medication : JOSÉ MIGUEL LEE [facility] Investigati onal Drug- tranexamic acid 1 gram or placebo in NS 50 mL 09-19 21:45: 00 09-20 02:59 :47 No 1g 1 g, IV Infusion, ONCE, 1 dose, 09/20/19 at 1645
Pr incipal investigat or: ERLINDA VALENZUELA [facility] metoclopram emile HCl (REGLAN) 10 mg in NaCl 0.9% (NS) piggyback 09-19 17:30: 00 09-19 17:54 :00 No 10mg 10 mg, IV Piggyback, ONCE, 1 dose, 09/20/19 at 1230, 50 mL [facility] famotidine (PEPCID (PF)) injection 20 mg 09-19 17:30: 00 09-19 18:26 :00 No 20mg 20 mg, IV Piggyback, ONCE, 1 dose, 09/20/19 at 1230, Routine [facility] gentamicin 40 mg/mL 480 mg in NaCl 0.9% (NS) 250 mL IV infusion 09-19 16:26: 09 09-19 22:43 :00 No 5mg/kg 480 mg (rounded from 470 mg = 5 mg/kg ?94 kg Adjusted weight), IV Infusion, O.R. HOLDING ONCE, 1 dose, Starting 09/20/19 at 1126, Until Discontinu ed, 250 mL
Reas on for Anti-Infec tive: Surgical Prophylaxi s
Surgi daisy Prophylaxi s: [employer]
Duration of therapy: within 24 hours of surgery [facility] lactated ringers IV infusion 1,000 mL 09-19 16:00: 00 09-20 02:59 :47 No 1000mL at 125 mL/hr, 1,000 mL, IV Infusion, CONTINUOUS , Starting 09/20/19 at 1100, Until 09/20/19 at 2159, Routine [facility] acetaminoph en (TYLENOL) tablet 650 mg 09-19 16:00: 00 09-19 21:41 :00 No 650mg 650 mg, Oral, ONCE, 1 dose, 09/20/19 at 1100, Routine [facility] sodium citrate-cit shana acid (BICITRA) 500-334 mg/5 mL solution 30 mL 09-19 15:53: 42 09-19 22:23 :00 No 30mL 30 mL, Oral, PRE-PROCED URE ONCE, 1 dose, Starting 09/20/19 at 1053, Until Denisse 09/22/19 at 2359, Routine, Surgery/Pr ocedure [facility] guaiFENesin 100 mg/5 mL solution 2018-07 00:00: 00 Yes [id number] 100mg Take 5 mL by mouth every 4 (four) hours. [facility] guaiFENesin 100 mg/5 mL solution 2018-07 00:00: 00 Yes [id number] 100mg Take 5 mL by mouth every 4 (four) hours. [facility] guaiFENesin 100 mg/5 mL solution 2018-07 00:00: 00 Yes [id number] 100mg Take 5 mL by mouth every 4 (four) hours. [facility] guaiFENesin 100 mg/5 mL solution 2018-07 00:00: 00 Yes [id number] 100mg Take 5 mL by mouth every 4 (four) hours. [facility] guaiFENesin 100 mg/5 mL solution 2018-07 00:00: 00 Yes [id number] 100mg Take 5 mL by mouth every 4 (four) hours. [facility] guaiFENesin 100 mg/5 mL solution 2018-07 00:00: 00 Yes [id number] 100mg Take 5 mL by mouth every 4 (four) hours. [facility] guaiFENesin 100 mg/5 mL solution 2018-07 00:00: 00 Yes [id number] 100mg Take 5 mL by mouth every 4 (four) hours. [facility] guaiFENesin 100 mg/5 mL solution 2018-07 00:00: 00 Yes [id number] 100mg Take 5 mL by mouth every 4 (four) hours. [facility] guaiFENesin 100 mg/5 mL solution 2018-07 00:00: 00 Yes [id number] 100mg Take 5 mL by mouth every 4 (four) hours. [facility] guaiFENesin 100 mg/5 mL solution 2018-07 00:00: 00 Yes [id number] 100mg Take 5 mL by mouth every 4 (four) hours. [facility] guaiFENesin 100 mg/5 mL solution 2018-07 00:00: 00 Yes [id number] 100mg Take 5 mL by mouth every 4 (four) hours. [facility] guaiFENesin 100 mg/5 mL solution 2018-07 00:00: 00 Yes [id number] 100mg Take 5 mL by mouth every 4 (four) hours. [facility] guaiFENesin 100 mg/5 mL solution 2018-07 00:00: 00 Yes [id number] 100mg Take 5 mL by mouth every 4 (four) hours. [facility] guaiFENesin 100 mg/5 mL solution 2018-07 00:00: 00 Yes [id number] 100mg Take 5 mL by mouth every 4 (four[facility]. [facility]: 00 09-21 00:00 :00 No [id number] 100mg Take 5 mL by mouth every 4 (four) hours. [facility]OB[facility] CONGEST[facility] ORAL[facility] 01-26 15:31: 10 Yes [facility] mouth. [facility]OB[facility] CHEST CONGESTION ORAL) 01-26 15:31: 10 Yes Take by mouth. [facility] (ROBITUSSIN CHEST CONGESTION ORAL) 01-26 15:31: 10 Yes [facility] mouth. [facility] (ROBITUSSIN CHEST CONGESTION ORAL) 01-26 15:31: 10 Yes Take by mouth. [facility] (ROBITUSSIN CHEST CONGESTION ORAL) 01-26 15:31: 10 Yes [facility] mouth. [facility] (ROBITUSSIN CHEST CONGESTION ORAL) 01-26 15:31: 10 Yes Take by mouth. [facility] (ROBITUSSIN CHEST CONGESTION ORAL) 01-26 15:31: 10 Yes [facility] mouth. [facility] (ROBITUSSIN CHEST CONGESTION ORAL) 01-26 15:31: 10 Yes [facility] mouth. [facility] (ROBITUSSIN CHEST CONGESTION ORAL) 01-26 15:31: 10 Yes Take [facility] mouth. [facility] (ROBITUSSIN CHEST CONGESTION ORAL) 01-26 15:31: 10 Yes Take [facility] mouth. [facility] (ROBITUSSIN CHEST CONGESTION ORAL) 01-26 15:31: 10 Yes Take by mouth. [facility] (ROBITUSSIN CHEST CONGESTION ORAL) 01-26 15:31: 10 Yes [facility] mouth. [facility] (ROBITUSSIN CHEST CONGESTION ORAL) 01-26 15:31: 10 Yes Take by mouth. [facility] (ROBITUSSIN CHEST CONGESTION ORAL) 01-26 15:31: 10 Yes Take by mouth. [facility] (ROBITUSSIN CHEST CONGESTION ORAL) 01-26 15:31: 10 Yes Take by mouth. [facility] (ROBITUSSIN CHEST CONGESTION ORAL) 01-26 15:31: 10 Yes Take by mouth. [facility] (ROBITUSSIN CHEST CONGESTION ORAL) 01-26 15:31: 10 Yes Take by mouth. [facility] (ROBITUSSIN CHEST CONGESTION ORAL) 01-26 15:31: 10 Yes Take by mouth. [facility] Vital Signs Vital Name Observation Time Observation Value Comments S ource Systolic blood pressure 2023-04-20 21:09:00 118 mm[Hg] Christineamanda Gastelumo ld - External Diastolic blood pressure 2023-04-20 21:09:00 74 mm[Hg] Christineamanda Gastelumo ld - External Heart rate 2023-04-20 21:09:00 88 /min Greg Jacobson - External Body temperature 2023-04-20 21:09:00 36.78 Qian Chritsine ирина - External Respiratory rate 2023-04-20 21:09:00 18 /min Christine Jacobson - External Body height 2023-04-20 21:09:00 160 cm Neetu Jacobson - External Body weight 2023-04-20 21:09:00 89.018 kg Neetu salazar ирина - External BMI 2023-04-20 21:09:00 34.76 kg/m2 Neetu Jacobson - External Oxygen saturation in Arterial blood by Pulse oximetry 2023-04-20 21:09:00 98 /min Christine gonsalo ld - External Systolic blood pressure 2020-08-09 15:08:00 127 mm[Hg] [facility] Diastolic blood pressure 2020-08-09 15:08:00 80 mm[Hg] [facility] Heart rate 2020-08-09 15:08:00 112 /[facility] 2020-08-09 15:08:00 36.33 Qian [facility] Respiratory rate 2020-08-09 15:08:00 16 /min [facility] Body height 2020-08-09 15:08:00 164.6 [facility] 2020-08-09 15:08:00 129.956 kg [facility] BMI 2020-08-09 15:08:00 47.97 kg/m2 [facility] Systolic blood pressure 2020-08-09 15:08:00 127 mm[Hg] [facility] Diastolic blood pressure 2020-08-09 15:08:00 80 mm[Hg] [facility] Heart rate 2020-08-09 15:08:00 112 /min [facility] 2020-08-09 15:08:00 36.33 Qian [facility] Respiratory rate 2020-08-09 15:08:00 16 /min [facility] Body height 2020-08-09 15:08:00 164.6 [facility] 2020-08-09 15:08:00 129.956 kg [facility] BMI 2020-08-09 15:08:00 47.97 kg/m2 [facility] Systolic blood pressure 2020-04-06 13:20:00 115 mm[Hg] [facility] Diastolic blood pressure 2020-04-06 13:20:00 75 mm[Hg] [facility] Heart rate 2020-04-06 13:20:00 71 /min [facility] Body temperature 2020-04-06 13:20:00 36.78 Qian [facility] Respiratory rate 2020-04-06 13:20:00 16 /min [facility] Body height 2020-04-06 13:20:00 162.6 cm [facility] 2020-04-06 13:20:00 127.325 [facility] BMI 2020-04-06 13:20:00 48.18 kg/m2 [facility] Systolic blood pressure 2020-02-23 13:24:00 122 mm[Hg] [facility] Diastolic blood pressure 2020-02-23 13:24:00 71 mm[Hg] [facility] Heart rate 2020-02-23 13:24:00 64 /min [facility] Body temperature 2020-02-23 13:24:00 36.61 Qian [facility] Respiratory rate 2020-02-23 13:24:00 16 /min [facility] Body height 2020-02-23 13:24:00 162.6 cm [facility] Body weight 2020-02-23 13:24:00 127.574 kg [facility] BMI 2020-02-23 13:24:00 48.28 kg/m2 [facility] Systolic blood pressure 2020-02-09 13:45:00 106 mm[Hg] [facility] Diastolic blood pressure 2020-02-09 13:45:00 75 mm[Hg] [facility] Heart rate 2020-02-09 13:45:00 83 /min [facility] Body temperature 2020-02-09 13:45:00 36.44 Qian [facility] Respiratory rate 2020-02-09 13:45:00 16 /min [facility] Body height 2020-02-09 13:45:00 162.6 cm [facility] Body weight 2020-02-09 13:45:00 129.36 kg [facility] BMI 2020-02-09 13:45:00 48.95 kg/m2 [facility] Systolic blood pressure 2020-02-02 14:20:00 132 mm[Hg] [facility] Diastolic blood pressure 2020-02-02 14:20:00 82 mm[Hg] [facility] Heart rate 2020-02-02 14:20:00 72 /min [facility] Body temperature 2020-02-02 14:20:00 36.67 Qian [facility] Respiratory rate 2020-02-02 14:20:00 16 /min [facility] Body height 2020-02-02 14:20:00 162.6 cm [facility] Body weight 2020-02-02 14:20:00 131.118 kg [facility] BMI 2020-02-02 14:20:00 49.62 kg/m2 [facility] Systolic blood pressure 2019-11-15 14:00:00 116 mm[Hg] Dieterich o [facility] Diastolic blood pressure 2019-11-15 14:00:00 75 mm[Hg] [facility] Heart rate 2019-11-15 14:00:00 76 /min [facility] Body temperature 2019-11-15 14:00:00 36.89 Qian [facility] Respiratory rate 2019-11-15 14:00:00 16 /min [facility] Body height 2019-11-15 14:00:00 162.6 cm [facility] Body weight 2019-11-15 14:00:00 135.739 kg [facility] BMI 2019-11-15 14:00:00 51.37 kg/m2 [facility] Systolic blood pressure 2019-09-27 16:12:00 121 mm[Hg] [facility] Diastolic blood pressure 2019-09-27 16:12:00 83 mm[Hg] [facility] Heart rate 2019-09-27 16:12:00 86 /min [facility] Body temperature 2019-09-27 16:12:00 36.44 Qian [facility] Respiratory rate 2019-09-27 16:12:00 16 /min [facility] Body height 2019-09-27 16:12:00 162.6 cm [facility] Body weight 2019-09-27 16:12:00 144.896 kg [facility] BMI 2019-09-27 16:12:00 54.83 kg/m2 [facility] Systolic blood pressure 2019-09-22 19:44:00 117 mm[Hg] [facility] Diastolic blood pressure 2019-09-22 19:44:00 75 mm[Hg] [facility] Heart rate 2019-09-22 19:44:00 95 /min [facility] Body [facility] 2019-09-22 19:44:00 36.78 Qian [facility] Respiratory rate 2019-09-22 19:44:00 18 /min [facility] Oxygen saturation in Arterial blood by Pulse oximetry 2019-09-22 19:44:00 98 /min [facility] Body height 2019-09-20 15:41:00 162.6 cm [facility] Body weight 2019-09-20 15:41:00 152.862 kg [facility] BMI 2019-09-20 15:41:00 57.85 kg/m2 [facility] Systolic blood pressure 2019-09-14 14:16:00 134 mm[Hg] [facility] Diastolic blood pressure 2019-09-14 14:16:00 89 mm[Hg] [facility] Heart rate 2019-09-14 14:16:00 87 /min [facility] Body temperature 2019-09-14 14:16:00 36.56 Qian [facility] Respiratory rate 2019-09-14 14:16:00 16 /min [facility] Body height 2019-09-14 14:16:00 162.6 cm [facility] Body weight 2019-09-14 14:16:00 149.29 kg [facility] BMI 2019-09-14 14:16:00 56.49 kg/m2 [facility] Systolic blood pressure 2019-09-08 15:34:00 131 mm[Hg] [facility] Diastolic blood pressure 2019-09-08 15:34:00 83 mm[Hg] [facility] Heart rate 2019-09-08 15:34:00 85 /min [facility] Body temperature 2019-09-08 15:34:00 36.11 Qian [facility] Respiratory rate 2019-09-08 15:34:00 16 /min Cook [facility] Body height 2019-09-08 15:34:00 162.6 cm [facility] Body weight 2019-09-08 15:34:00 149.007 kg [facility] BMI 2019-09-08 15:34:00 56.39 kg/m2 [facility] Systolic blood pressure 2019-09-01 14:31:00 92 mm[Hg] [facility] Diastolic blood pressure 2019-09-01 14:31:00 64 mm[Hg] [facility] Heart rate 2019-09-01 14:25:00 81 /min [facility] Body temperature 2019-09-01 14:25:00 36.22 Qian [facility] Respiratory rate 2019-09-01 14:25:00 16 /min [facility] Body height 2019-09-01 14:25:00 162.6 cm [facility] Body weight 2019-09-01 14:25:00 147.589 kg [facility] BMI 2019-09-01 14:25:00 55.85 kg/m2 [facility] Systolic blood pressure 2019-08-17 17:31:00 118 mm[Hg] [facility] Diastolic blood pressure 2019-08-17 17:31:00 74 mm[Hg] [facility] Heart rate 2019-08-17 17:20:00 120 /min [facility] Body temperature 2019-08-17 17:20:00 36.67 Qian [facility] Respiratory rate 2019-08-17 17:20:00 16 /min [facility] Body height 2019-08-17 17:20:00 162.6 cm [facility] Body weight 2019-08-17 17:20:00 147.476 kg [facility] BMI 2019-08-17 17:20:00 55.81 kg/m2 [facility] Systolic blood pressure 2019-08-04 15:33:00 137 mm[Hg] [facility] Diastolic blood pressure 2019-08-04 15:33:00 90 mm[Hg] [facility] Heart rate 2019-08-04 15:33:00 92 /min [facility] Body temperature 2019-08-04 15:33:00 36.83 Qian [facility] Respiratory rate 2019-08-04 15:33:00 16 /min [facility] Body height 2019-08-04 15:33:00 162.6 cm [facility] Body weight 2019-08-04 15:33:00 144.697 kg [facility] BMI 2019-08-04 15:33:00 54.76 kg/m2 [facility] Systolic blood pressure 2019-03-21 14:31:00 130 mm[Hg] [facility] Diastolic blood pressure 2019-03-21 14:31:00 80 mm[Hg] [facility] Heart rate 2019-03-21 14:31:00 89 /min [facility] Body temperature 2019-03-21 14:31:00 36.39 Qian [facility] Respiratory rate 2019-03-21 14:31:00 16 /min [facility] Body weight 2019-03-21 14:31:00 138.064 kg [facility] BMI 2019-03-21 14:31:00 52.25 kg/m2 [facility] Systolic blood pressure 2019-02-24 15:04:00 128 mm[Hg] [facility] Diastolic blood pressure 2019-02-24 15:04:00 80 mm[Hg] [facility] Heart rate 2019-02-24 15:04:00 75 /min [facility] Body temperature 2019-02-24 15:04:00 36.61 Qian [facility] Respiratory rate 2019-02-24 15:04:00 18 /min [facility] Body height 2019-02-24 15:04:00 162.6 cm [facility] Body weight 2019-02-24 15:04:00 138.517 kg [facility] BMI 2019-02-24 15:04:00 52.42 kg/m2 [facility] Systolic blood pressure 2019-01-26 15:20:00 114 mm[Hg] [facility] Diastolic blood pressure 2019-01-26 15:20:00 62 mm[Hg] [facility] Heart rate 2019-01-26 15:15:00 117 /min [facility] Body temperature 2019-01-26 15:15:00 36.94 Qian [facility] Respiratory rate 2019-01-26 15:15:00 16 /min [facility] Body height 2019-01-26 15:15:00 162.6 cm [facility] Body weight 2019-01-26 15:15:00 136.589 kg [facility] BMI 2019-01-26 15:15:00 51.69 kg/m2 [facility] Procedures Procedure Date / Time Performed Performing Clinician Source DISMISSAL OF PATIENT CORRESPONDENCE 2020-08-09 06:01:00 Doctor Unassigned, [place] [facility] POCT TEST 2020-02-09 13:59:00 Yogesh Godwin [facility] POCT TEST 2020-02-02 14:21:00 Yogesh Godwin [facility] ASSIGNMENT OF BENEFITS 2020-02-02 13:54:27 Docto r Unassigned, [place] [facility] POCT TEST 2019-11-15 14:06:00 Reina Ruano [facility] CBC WITH DIFFERENTIAL 2019-09-21 07:51:00 Marta Dee [facility] VENOUS CORD GAS 2019-09-20 23:55:00 [facility] SECTION 2019-09-20 22:13:00 [facility] URINALYSIS 2019-09-20 16:33:00 Jesse [facility] PROTEIN CREAT RATIO URINE RANDOM 2019-09-20 16:33:00 Richy Molinahanie [facility] SGOT (ASPARTATE AMINO TRANSFER) 2019-09-20 [facility]-09-20 16:32:00 Jesse [facility] ALANINE AMINO TRANSFERASE(SGPT 2019-09-20 16:32:00 Jesse [facility] LACTATE DEHYDROGENASE 2019-09-20 16:32:00 Corinna Molina marlen [facility] URIC ACID 2019-09-20 16:32:00 Richy Molinahanie [facility] CBC WITH DIFFERENTIAL 2019-09-20 16:32:00 Corinna Molina [facility] HEPATITIS B SURFACE ANTIGEN 2019-09-20 16:32:00 Kortney Molina [facility] GALV ONLY - SYPHILIS IGG/IGM 2019-09-20 16:32:00 Kortney Molina [facility] PANEL IDENTIFICATION 2019-09-20 15:54:00 Christine Brady October [facility] HB ABO GROUPING 2019-09-20 15:54:00 Alexandrea Brady October [facility] RHO (D) IMMUNE GLOBULIN 2019-09-20 15:54:00 Marta Hill [facility] HOSPITAL ADMISSION 2019-09-20 05:01:00 Doctor Un assigned, [place] [facility] POCT URINALYSIS 2019-09-14 14:17:00 Lindy Godwin [facility] POCT URINALYSIS 2019-09-08 15:35:00 Lindy Godwin [facility] POCT URINALYSIS 2019-09-01 14:27:00 Lindy Godwin [facility] PANEL IDENTIFICATION 2019-08-04 15:42:00 Nestor Godwin [facility] HB ABO GROUPING 2019-08-04 15:42:00 Lindy Godwin [facility] ANTIBODY TITER INTERPS 2019-08-04 15:42:00 Leroy Godwin [facility] POCT URINALYSIS W/O SPECIFIC GRAVITY 2019-08-04 15:38:00 Lindy Godwin [facility] POCT URINALYSIS 2019-03-21 14:33:00 Lindy Godwin [facility] PANEL IDENTIFICATION 2019-02-24 15:22:00 Rehana Hinds [facility] WORKUP, BLOOD BANK 2019-02-24 15:22:00 Rehana Hinds [facility] ANTIBODY TITER INTERPS 2019-02-24 15:22:00 Nallely Hinds [facility] POCT URINALYSIS 2019-02-24 15:07:00 Lindy Godwin [facility] URINE CULTURE 2019-01-26 16:35:00 Lindy Godwin [facility] GC & CHLAMYDIA AMPLIFIED ASSAY 2019-01-26 16:35:00 Lindy Godwin [facility] LAB ONLY PAP SMEAR-LIQUID BASED 2019-01-26 16:35:00 Lindy Godwin [facility] PAP SMEAR-LIQUID BASED-CP 2019-01-26 16:35:00 Lindy Godwin [facility] GLUCOSE 1 HOUR POST PRANDIAL 2019-01-26 16:23:00 iLndy Godwin [facility] CBC WITH DIFFERENTIAL 2019-01-26 16:23:00 Gavin Godwin [facility] RUBELLA SCREEN IGG 2019-01-26 16:23:00 Philip Godwin [facility] VZV ANTIBODY SCREEN 2019-01-26 16:23:00 Yogesh Godwin [facility] HEPATITIS B SURFACE ANTIGEN 2019-01-26 16:23:00 Lindy Godwin [facility] HCV ANTIBODY 2019-01-26 16:23:00 Lindy Godwin [facility] ANTIGEN TYPING PATIENT 2019-01-26 16:23:00 Leroy Godwin [facility] PANEL IDENTIFICATION 2019-01-26 16:23:00 Nestor Godwin [facility] WORKUP, BLOOD BANK 2019-01-26 16:23:00 Lindy Godwin [facility] ANTIBODY TITER INTERPS 2019-01-26 16:23:00 Leroy Godwin [facility] HIV 1/2 AG-AB WITH REFLEX 2019-01-26 16:23:00 Lindy Godwin [facility] GALV ONLY - SYPHILIS IGG/IGM 2019-01-26 16:23:00 Lindy Godwin [facility] POCT TEST 2019-01-26 15:27:00 Yogesh Godwin [facility] POCT URINALYSIS W/O SPECIFIC GRAVITY 2019-01-26 15:27:00 Lindy Godwin [facility] Encounters Start Date/Time End Date/Time Encounter Type Admission Type Attending [facility] Facility Care Department Encounter ID Source 2021-05-09 13:32:[address] [facility] [id number] [facility] 2023-09-08 09:30:00 2023-09-08 09:30:00 Outpatient R STERLING-SANDRA S, ROSEANNE STERLING-SANDRA S, ROSEANNE [facility] [id number] [facility] 2023-08-10 09:20:00 2023-08-10 09:20:00 Outpatient CECIL PETTIT [id number] [facility] 2023-05-29 10:30:00 2023-05-29 10:30:00 Outpatient ADALI MOSQUERA [id number] [facility] 2023-05-21 08:30:00 2023-05-21 08:30:00 Outpatient ADALI MOSQUERA [id number] [facility] 2023-05-08 00:00:00 2023-05-08 00:00:00 Outpatient GC_GCBZW_Ka diyala_S [facility] [id number] [facility] 2023-05-04 00:00:00 2023-05-04 00:00:00 Outpatient ADALI MOSQUERA [id number] [facility] 2023-04-29 00:00:00 2023-04-29 00:00:00 Outpatient ADALI MOSQUERA [id number] [facility] 2023-04-29 00:00:00 2023-04-29 00:00:00 Outpatient ADALI MOSQUERA [id number] [facility] 2023-04-28 12:30:00 2023-04-28 12:30:00 Outpatient CHRISTINE RIBEIRO [id number] [facility] 2023-04-28 00:00:00 2023-04-28 00:00:00 Outpatient ADALI MOSQUERA [id number] [facility] 2023-04-27 13:04:26 2023-04-27 13:04:26 Outpatient SFA SFA [id number] Genaro Amaya 2023-04-27 00:00:00 2023-04-27 00:00:00 Outpatient ADALI MOSQUERA [id number] Christine Jacobson 2023-04-21 08:45:00 2023-04-21 08:45:00 Outpatient LAB90 CHRISTINE RIBEIRO [id number] Christine Raemarcio 2023-04-20 16:30:00 2023-04-20 16:30:00 Outpatient ADALI MOSQUERA [id number] Christine Raemarcio 2023-04-06 11:00:51 2023-04-06 11:00:51 Outpatient SFA SFA [id number] Genaro Amaya 2023-03-16 11:05:05 2023-03-16 11:05:05 Outpatient SFA SFA [id number] Genaro Amaya 2023-02-23 13:06:19 2023-02-23 13:06:19 Outpatient SFA SFA [id number] Genaro Amaya 2023-02-02 09:02:03 2023-02-02 09:02:03 Outpatient SFA SFA [id number] Genaro Amaya 2021-05-21 17:32:00 2021-05-21 17:32:00 Outpatient Ekopheliase, [place] [facility]O [id number] [facility] 2021-03-29 11:40:00 2021-03-29 11:40:00 Outpatient Ekopheliase, [place] [facility] [id number] [facility] 2020-11-07 08:15:00 2020-11-07 08:15:00 Outpatient LINDY CORRAL [facility] [id number] [facility] 2020-08-09 08:55:29 2020-08-09 10:04:43 Office Visit Lnidy Godwin [facility] [employer] [facility] 1.2.840.114 350.1.13.10 4.2.7.2.686 [id number] [facility] 2020-08-09 08:55:29 2020-08-09 10:04:43 Office Visit Lindy Godwin [facility] [employer] ACCOUNTANT [facility] CHILD [facility] 1.2.840.114 350.1.13.10 4.2.7.2.686 [id number] 2020-08-09 09:15:00 2020-08-09 09:15:00 Outpatient R LINDY GODWIN [facility] [id number] [facility] 2020-08-09 00:00:00 2020-08-09 00:00:00 Orders Only Doctor Unassigned, [place] [facility] 1..840.114 350.1.13.10 4.2.7.2.686 [id number] [facility] 2020-04-06 08:07:21 2020-04-06 08:42:27 Office Visit Lindy Godwin [facility] M[employer]UAL FUND ACCOUNTANT [facility] CHILD [facility] 1..840.114 350.1.13.10 4.2.7.2.686 [id number] [facility] 2020-04-06 08:15:00 2020-04-06 08:15:00 Outpatient R LINDY GODWIN [facility] [id number] [facility] 2020-02-23 08:06:22 2020-02-23 08:56:47 Office Visit Lindy Godwin [facility] M[employer]UAL FUND ACCOUNTANT [facility] 1..840.114 350.1.13.10 4.2.7.2.686 [id number] 107 [id number] [facility] 2020-02-23 08:15:00 2020-02-23 08:15:00 Outpatient R LINDY GODWIN [facility] [id number] [facility] 2020-02-09 08:32:42 2020-02-09 09:40:50 Office Visit Lidny Godwin [facility] M[employer]UAL [employer] ACCOUNTANT [facility] CHILD [facility] 1..114 350.1.13.10 4.2.7.2.686 [id number] [facility] 2020-02-09 08:30:00 2020-02-09 08:30:00 Outpatient R LINDY GODWIN [facility] [id number] [facility] 2020-02-07 08:30:00 2020-02-07 08:30:00 Outpatient R [facility] [id number] [facility] 2020-02-02 08:50:24 2020-02-02 09:55:59 Office Visit Lindy Godwin [facility] M[employer]UAL [employer] ACCOUNTANT [facility] 1..114 350.1.13.10 4.2.7.2.686 [id number] [facility] 2020-02-02 08:15:00 2020-02-02 08:15:00 Outpatient R LINDY GODWIN [facility] [id number] [facility] 2020-02-02 00:00:00 2020-02-02 00:00:00 Orders Only Doctor Unassigned, [place] [facility] 1..114 350.1.13.10 4.2.7.2.686 [id number] [facility] 2020-01-17 00:00:00 2020-01-17 00:00:00 Telephone Lindy Godwin [facility] M[employer]UAL [employer] ACC[employer]ANT [facility]ILD [facility] 1..114 350.1.13.10 4.2.7.2.686 [id number] [facility] 2019-11-15 08:58:04 2019-11-15 09:22:08 Nurse Visit Visit, Huan-Rmchp Nurse Lindy Godwin [facility] M[employer]UAL [employer]ANT [facility]ILD [facility] 1..114 350.1.13.10 4.2.7.2.686 [id number] [facility] 2019-11-15 09:00:00 2019-11-15 09:00:00 Outpatient R [facility] [id number] [facility] 2019-11-02 08:00:00 2019-11-02 08:00:00 Outpatient R LINDY GODWIN [facility] [id number] [facility] 2019-11-01 10:02:16 2019-11-01 10:10:30 Telemedici ne Visit Lindy Godwin [facility] [employer] [facility] 1..840.114 350.1.13.10 4.2.7.2.686 [id number] [facility] 2019-11-01 10:00:00 2019-11-01 10:00:00 Outpatient R LINDY GODWIN [facility] [id number] [facility] 2019-10-12 08:05:41 2019-10-12 09:57:15 Telemedici ne Visit Lindy Godwin [facility] M[employer]UAL [employer]ANT [facility]ILD [facility] 1..840.114 350.1.13.10 4.2.7.2.686 [id number] [facility] 2019-10-12 09:45:00 2019-10-12 09:45:00 Outpatient R LINDY GODWIN [facility] [id number] [facility] 2019-09-27 11:02:50 2019-09-27 11:23:37 Nurse Visit Visit, Ang-Rmchp Nurse Lindy Godwin [facility] M[employer]UAL [employer]ANT [facility]ILD [facility] 1..840.114 350.1.13.10 4.2.7.2.686 [id number] [facility] 2019-09-27 11:00:00 2019-09-27 11:00:00 Outpatient R LINDY GODWIN [facility] [id number] [facility] 2019-09-20 10:19:00 2019-09-22 16:00:00 Hospital Encounter Destini Vazquez [facility] 1.2.840.114 350.1.13.10 4.2.7.2.686 [id number] [facility] 2019-09-21 08:00:00 2019-09-21 08:00:00 Outpatient R LINDY GODWIN [facility] [id number] [facility] 2019-09-20 00:00:00 2019-09-20 00:00:00 Orders Only Doctor Unassigned, [place] [facility] 1..840.114 350.1.13.10 4.2.7.2.686 [id number] [facility] 2019-09-14 07:59:23 2019-09-14 08:34:31 Routine Visit Lindy Godwin [facility] M[employer]UAL [employer] ACC[employer]ANT [facility] 1..840.114 350.1.13.10 4.2.7.2.686 [id number] 107 [id number] [facility] 2019-09-14 08:00:00 2019-09-14 08:00:00 Outpatient R LINDY GODWIN [facility] [id number] [facility] 2019-09-08 08:56:52 2019-09-08 09:51:11 Routine Visit Lindy Godwin [facility] M[employer]UAL [employer] ACC[employer]ANT [facility] 1..840.114 350.1.13.10 4.2.7.2.686 [id number] [facility] 2019-09-08 09:00:00 2019-09-08 09:00:00 Outpatient R LINDY GODWIN [facility] [id number] [facility] 2019-09-02 00:00:00 2019-09-02 00:00:00 Abstract Lindy Godwin [facility] M[employer]UAL FUN[employer] ACCOUNTANT [facility] 1.2.840.114 350.1.13.10 4.2.7.2.686 [id number] [facility] 2019-09-01 09:04:51 2019-09-01 09:34:51 Air And Water Tester Visit Ultrasound, Huan-m Lindy Godwin Antonio F [facility] M[employer]UAL [employer] ACCOUNTANT [facility] CHILD [facility] 1.2.840.114 350.1.13.10 4.2.7.2.686 [id number] [facility] 2019-09-01 07:51:10 2019-09-01 09:03:14 Routine Visit Lindy Godwin [facility] M[employer]UAL FUN[employer] ACCOUNTANT [facility] 1.2.840.114 350.1.13.10 4.2.7.2.686 [id number] [facility] 2019-08-17 10:53:54 2019-08-17 11:43:25 Routine Visit Lindy Godwin [facility] M[employer]UAL FUN[employer] ACCOUNTANT [facility] 1.2.840.114 350.1.13.10 4.2.7.2.686 [id number] [facility] 2019-08-04 09:14:38 2019-08-09 10:20:44 Routine Visit Lindy Godwin [facility] M[employer]UAL FUN[employer] ACCOUNTANT [facility] 1.2.840.114 350.1.13.10 4.2.7.2.686 [id number] [facility] 2019-08-09 00:00:00 2019-08-09 00:00:00 Telephone Lindy Godwin [facility] M[employer]UAL FUN[employer] ACCOUNTANT [facility] 1.2.840.114 350.1.13.10 4.2.7.2.686 [id number] [facility] 2019-08-09 00:00:00 2019-08-09 00:00:00 Abstract Lindy Godwin [facility] M[employer]UAL [employer] ACC[employer]ANT [facility] 1.2.840.114 350.1.13.10 4.2.7.2.686 [id number] [facility] 2019-08-05 00:00:00 2019-08-05 00:00:00 Telephone Lindy Godwin [facility] MUTUAL FUN[employer] ACCOUNTANT [facility] 1.2.840.114 350.1.13.10 4.2.7.2.686 [id number] [facility] 2019-07-11 20:27:51 2019-07-12 03:01:00 Outpatient CHRISTINA PIERCE [facility] [id number] [facility] 2019-03-21 09:23:05 2019-03-21 10:17:43 Routine Visit Faculty, Mike Tee [facility] MUTUAL FUND [facility]ANT [facility] CHILD [facility] 1.2840.114 350.1.13.10 4.2.7.2.686 [id number] [facility] 2019-03-07 00:00:00 2019-03-07 00:00:00 Telephone Noemy HannahN p/High [facility] M[employer]UAL FUND [facility]ANT [facility] CHILD [facility] 1.2.840.114 350.1.13.10 4.2.7.2.686 [id number] [facility] 2019-03-04 00:00:00 2019-03-04 00:00:00 Case Management Aubree Grajeda [facility] 1.2.840.114 350.1.13.10 4.2.7.2.686 [id number] [facility] 2019-02-25 00:00:00 2019-02-25 00:00:00 Telephone Lindy Godwin [facility] M[employer]UAL FUN[employer] ACCOUNTANT [facility] 1.2.840.114 350.1.13.10 4.2.7.2.686 [id number] [facility] 2019-02-24 09:47:59 2019-02-24 10:32:25 Routine Visit Risk, JaneyRmchp-N p/High Rehana Hinds [facility] M[employer]UAL FUN[employer] ACCOUNTANT [facility] 1.2.840.114 350.1.13.10 4.2.7.2.686 [id number] [facility] 2019-02-17 00:00:00 2019-02-17 00:00:00 Abstract Lindy Godwin [facility] MUTUAL FUND ACCOUNTANT [facility] 1.2.840.114 350.1.13.10 4.2.7.2.686 [id number] [facility] 2019-02-16 10:03:47 2019-02-16 10:39:43 Air And Water Tester Visit Ultrasound, Randolph Radford [facility] M[employer]UAL FUN[employer] ACCOUNTANT [facility] 1.2.840.114 350.1.13.10 4.2.7.2.686 [id number] [facility] 2019-02-09 00:00:00 2019-02-09 00:00:00 Telephone Lindy Godwin [facility] M[employer]UAL [employer] ACCOUNTANT [facility] 1.2.840.114 350.1.13.10 4.2.7.2.686 [id number] [facility] 2019-01-26 09:47:56 2019-02-08 13:19:30 Initial Visit Lindy Godwin [facility] M[employer]UAL [employer] ACCOUNTANT [facility] 1.2.840.114 350.1.13.10 4.2.7.2.686 [id number] [facility] Results Test Description Test Time Test Comments Results Result Co mments Source Novel Coronavirus 16:19:00* Test Item Value Reference Range Interpretation Comme nts Novel Coronavirus 2019 Inhouse (test code = [id number]) Negative Negative Positive resul ts are indicative of the presence [id number] RNA, clinical correlation with patient historyand other diagnostic information is necessary to determinepatient infection status. Positive results do not rule outbacterial infection or co-infection with other viruses. Negative results do not preclude SARS-CoV-2 infection andshould not be used as the sole basis for patient managementdecisions. Negative results must be combined with otherclinical observations, patient history, and epidemiologicalinformation . Detection of SARS-CoV-2 RNA may be affected bysample collection methods, storage conditions, and/or stageof infection. Viral RNA mutations, vaccinations, antiviraltherapeutics, antibiotics, chemotherapeutic orimmunosuppressant drugs have not been evaluated for effectson detection. Results are for the identification of SARS-CoV-2 RNA usingreal-time (RT) polymerase chain reaction (PCR) technologyfor the qualitative detection of nucleic acids from [id number]-CxR-7 virus and diagnosis of SARS-CoV-2 virusinfection. It is an Emergency Use Authorization (EUA) testauthorized by the [place] FDA. POCT [id number] 13:59:00* Test Item Value Reference Range Interpretation Comme nts POCT PREG (test code = 1605) Negative On board controls acceptable with C Line (test code = 3574) Yes POCT PREG LOT # (test code = 3575) POCT PREG TEST DATE ( test code = 3576) [facility] [id number] 13:59:00* Test Item Value Reference Range Interpretation Comme nts POCT PREG (test code = 1605) Negative On board controls acceptable with C Line (test code = 3574) Yes POCT PREG LOT # (test code = 3575) POCT PREG TEST DATE ( test code = 3576) [facility] [id number] 13:59:00* Test Item Value Reference Range Interpretation Comme nts POCT PREG (test code = 1605) Negative On board controls acceptable with C Line (test code = 3574) Yes POCT PREG LOT # (test code = 3575) POCT PREG TEST DATE ( test code = 3576) [facility] [id number] 14:22:00* Test Item Value Reference Range Interpretation Comme nts POCT PREG (test code = 1605) Negative On board controls acceptable with C Line (test code = 3574) Yes POCT PREG LOT # (test code = 3575) POCT PREG TEST DATE ( test code = 3576) [facility] [id number] 14:22:00* Test Item Value Reference Range Interpretation Comme nts POCT PREG (test code = 1605) Negative On board controls acceptable with C Line (test code = 3574) Yes POCT PREG LOT # (test code = 3575) POCT PREG TEST DATE ( test code = 3576) [facility] [id number] 14:06:00* Test Item Value Reference Range Interpretation Comme nts POCT PREG (test code = 1605) Negative On board controls acceptable with C Line (test code = 3574) Yes POCT PREG LOT # (test code = 3575) POCT PREG TEST DATE ( test code = 3576) [facility] SYPHILIS IGG/[id number] 14:13:00* Test Item Value Reference Range Interpretation Comme nts Syphilis IgG/IgM (test code = 51966-0) Non-reactive Non-reactive LUTHER (test code = LUTHER) Non-reactive - No serologic evidence of T. pallidum infection. Cannot exclude incubating or early syphilis. Submit a second specimen in 2-4 weeks if syphilis is clinically suspected. Equivocal - Further testing to follow. Reactive - Further testing to follow. Lab Interpretation (test code = 95064-6) [facility] WITH [id number] 09:26:00* Test Item Value Reference Range Interpretation Comme nts WBC (test code = 6690-2) See_Comment H [Automated message] The system which generated this result transmitted reference range: 4.30 - 11.10 10*3/?L. The reference range was not used to interpret this result as normal/abnormal. RBC (test code = 789-8) See_Comment [Automated message] The system which generated this result transmitted reference range: 3.93 - 5.25 10*6/?L. The reference range was not used to interpret this result as normal/abnormal. HGB (test code = 718-7) 12.9 g/dL 11.6-15 HCT (test code = 4544-3) 39.3 % 35.7-45.2 MCV (test code = 787-2) 85.8 fL 80.6-95.5 MCH (test code = 785-6) 28.2 pg 25.9-32.8 MCHC (test code = 786-4) 32.8 g/dL 31.6-35.1 RDW-SD (test code = 32935-4) 44.3 fL 39-49.9 RDW-CV (test code = 788-0) 14.4 % 12-15.5 PLT (test code = 777-3) See_Comment [Automated message] The system which generated this result transmitted reference range: 166 - 358 10*3/?L. The reference range was not used to interpret this result as normal/abnormal. MPV (test code = 60192-1) 11.0 fL 9.5-12.9 NRBC/100 WBC (test code = 4213122720) See_Comment [Automated message] The system which generated this result transmitted reference range: 0.0 - 10.0 /100 WBCs. The reference range was not used to interpret this result as normal/abnormal. NRBC x10^3 (test code = 1313112581) <0.01 See_Comment [Automated message] The system which generated this result transmitted reference range: 10*3/?L. The reference range was not used to interpret this result as normal/abnormal. GRAN MAT (NEUT) % (test code = 770-8) 81.3 % IMM GRAN % (test code = 0032477995) 0.50 % LYMPH % (test code = 736-9) 10.0 % MONO % (test code = 5905-5) 7.8 % EOS % (test code = 713-8) 0.1 % BASO % (test code = 706-2) 0.3 % GRAN MAT x10^3(ANC) (test code = 0007693656) 11.84 10*3/uL 1.88-7.09 H IMM GRAN x10^3 (test code = 1557532055) 0.08 10*3/uL 0-0.06 H LYMPH x10^3 (test code = 731-0) 1.46 10*3/uL 1.32-3.29 MONO x10^3 (test code = 742-7) 1.13 10*3/uL 0.33-0.92 H EOS x10^3 (test code = 711-2) <0.03 0.03-0.39 L BASO x10^3 (test code = 704-7) 0.04 10*3/uL 0.01-0.07 Lab Interpretation (test code = 82504-7) Abnormal [facility] CenterR[facility]D) IMMUNE [id number] 03:01:12* Test Item Value Reference Range Interpretation Comme nts RHIG CANDIDATE? (test code = 5055) No- see comment Patient is not a candidate for RhIg- Patient is Rh Positive.Performed at [facility] Laboratory Services - [facility] Blood [address] [address] Free: [phone] No. [id number] [facility] [id number] 00:09:00* Test Item Value Reference Range Interpretation Comme nts VENOUS BASE EXCESS, CORD (test code = 7599134904) mEq/L VENOUS PH, CORD (test code = 0643746858) 7.25-7.45 VENOUS PC02, CORD (test code = 7389749254) See_Comment H [Automated me ssage] The system which generated this result transmitted reference range: 27 - 49 mmHg. The reference range was not used to interpret this result as normal/abnormal. VENOUS PO2, CORD (test code = 6958011161) See_Comment [Automated me ssage] The system which generated this result transmitted reference range: 17 - 41 mmHg. The reference range was not used to interpret this result as normal/abnormal. VENOUS BICARBONATE, CORD (test code = 4194622017) See_Comment [Automa ling message] The system which generated this result transmitted reference range: 12 - 29 mEq/L. The reference range was not used to interpret this result as normal/abnormal. Lab Interpretation (test code = 22980-5) Abnormal [facility] CenterArterial Cord [id number] 00:06:00* Test Item Value Reference Range Interpretation Comme nts BASE EXCESS, CORD (test code = 0182209048) mEq/L AC PH, CORD (BEAKER) (test code = 7439092914) 7.18-7.38 PC02, CORD (test code = 5329833266) See_Comment [Automated messa ge] The system which generated this result transmitted reference range: 32 - 66 mmHg. The reference range was not used to interpret this result as normal/abnormal. PO2, CORD (test code = 8781986711) See_Comment [Automated messa ge] The system which generated this result transmitted reference range: 10 - 30 mmHg. The reference range was not used to interpret this result as normal/abnormal. BICARBONATE, CORD (test code = 3226292984) See_Comment [Automated messa ge] The system which generated this result transmitted reference range: 17 - 27 mEq/L. The reference range was not used to interpret this result as normal/abnormal. [facility] CenterPANEL [id number] 19:06:46 ANTIBODY UROlzi-AdeJpgn-K Comment: Performed at [facility] Laboratory Services - [facility] Blood [address] Free: [phone] No. [id number] LABUnB[facility] PlanoType and Screen - ONCE STAT 2019-09-20 18:19:37* Test Item Value Reference Range Interpretation Comme nts ABO & RH (test code = 20) O POSITIVE Performed at [facility] Laboratory Services - [facility] Blood [place] [address]Toll Free: [phone] No. [id number] IAT (test code = 1185) Positive Performed at [facility] Laboratory Services - [facility] Blood [address] Free: [phone] No. [id number] [facility] CenterUric Acid Ftxan1992-70-65 18:12:00* Test Item Value Reference Range Interpretation Comme nts URIC ACID (test code = 9589330535) 5.5 mg/dL 2.9-6 Lab Interpretation (test cod e = 90723-4) Normal [facility] Uioboqgemp6821-87-46 18:12:00* Test Item Value Reference Range Interpretation Comme nts CREATININE (test code = 8509547023) 0.58 mg/dL 0.5-1.04 eGFR Calculation (Non-) (test code = 7236452179) mL/min/1.73m2 eGFR Calculation () (test code = 5937343323) mL/min/1.73m2 LUTHER (test code = LUTHER) Association of [...] or urine or abnormalities in imaging tests). [facility] CenterSGOT (Asparate Amino Transfer)2019-09-20 18:12:00* Test Item Value Reference Range Interpretation Comme nts AST(SGOT) (test code = 9743922710) 22 U/L 13-40 Lab Interpretation (test cod e = 27161-4) Normal [facility] CenterAlanine Amino Transferase (SGPT)2019-09-20 18:12:00* Test Item Value Reference Range Interpretation Comme nts ALTv (test code = 1742-6) 20 U/L 5-35 Lab Interpretation (test cod e = 75925-6) Normal [facility] CenterLactate Rbojradeavtum3482-34-67 18:07:00* Test Item Value Reference Range Interpretation Comme nts LDH (test code = 9125956526) 400 U/L 300-600 Lab Interpretation (test cod e = 94012-5) Normal [facility] CenterHepatitis B Surface Wtelsur4539-79-03 17:51:00 * Test Item Value Reference Range Interpretation Comme nts HBsAg Semi-Quantitative (veronica t code = 5195-3) Negative Negative [facility] CenterProtein CREAT Ratio Urine Lsnxuj8556-54-21 17:03:00* Test Item Value Reference Range Interpretation Comme nts T. PROT U (test code = 2888-6) 12 mg/dL CREAT U (test code = 1520337703) 109.8 mg/dL Protein/Creatinine Ratio Uri ne (test code = 8771134967) 0.0-2.0 [facility] CenterUrinalysis2020-03-10 16:58:00* Test Item Value Reference Range Interpretation Comme nts APPEARANCE (test code = 1648411129) Hazy Clear A COLOR (test code = 2657694718) Yellow Yellow PH (test code = 2291565833) 4.8-8.0 SP GRAVITY (test code = 6038259700) 1.003-1.030 GLU U QUAL (test code = 9475065332) Normal Normal BLOOD (test code = 9030253575) Negative Negative KETONES (test code = 4029509165) Negative Negative PROTEIN (test code = 2887-8) Negative Negative UROBILIN (test code = 4577253104) Normal Normal BILIRUBIN (test code = 9054046168) Negative Negative NITRITE (test code = 2824523578) Negative Negative LEUK AURA (test code = 7163720551) Negative Negative RBC/HPF (test code = 0854452656) See_Comment [Automated Zwipea ge] The system which generated this result transmitted reference range: 0 - 3 HPF. The reference range was not used to interpret this result as normal/abnormal. WBC/HPF (test code = 4225427426) See_Comment [Automated messa ge] The system which generated this result transmitted reference range: 0 - 5 HPF. The reference range was not used to interpret this result as normal/abnormal. BACTERIA (test code = 6157123259) Few Negative A MUCOUS (test code = 4713927385) Slight Negative LPF A SQ EPITH (test code = 3125023860) See_Comment H [Automated messa ge] The system which generated this result transmitted reference range: <=2 HPF. The reference range was not used to interpret this result as normal/abnormal. Lab Interpretation (test code = 30423-8) Abnormal [facility] WITH [id number] 16:53:00* Test Item Value Reference Range Interpretation Comme nts WBC (test code = 6690-2) See_Comment H [Automated messa ge] The system which generated this result transmitted reference range: 4.30 - 11.10 10*3/?L. The reference range was not used to interpret this result as normal/abnormal. RBC (test code = 789-8) See_Comment [Automated messa ge] The system which generated this result transmitted reference range: 3.93 - 5.25 10*6/?L. The reference range was not used to interpret this result as normal/abnormal. HGB (test code = 718-7) 14.4 g/dL 11.6-15 HCT (test code = 4544-3) 43.8 % 35.7-45.2 MCV (test code = 787-2) 83.9 fL 80.6-95.5 MCH (test code = 785-6) 27.6 pg 25.9-32.8 MCHC (test code = 786-4) 32.9 g/dL 31.6-35.1 RDW-SD (test code = 36248-1) 43.2 fL 39-49.9 RDW-CV (test code = 788-0) 14.2 % 12-15.5 PLT (test code = 777-3) See_Comment [Automated messa ge] The system which generated this result transmitted reference range: 166 - 358 10*3/?L. The reference range was not used to interpret this result as normal/abnormal. MPV (test code = 51560-7) 10.9 fL 9.5-12.9 NRBC/100 WBC (test code = 2961549314) See_Comment [Automated me ssage] The system which generated this result transmitted reference range: 0.0 - 10.0 /100 WBCs. The reference range was not used to interpret this result as normal/abnormal. NRBC x10^3 (test code = 2722175920) <0.01 See_Comment [Automated messa ge] The system which generated this result transmitted reference range: 10*3/?L. The reference range was not used to interpret this result as normal/abnormal. GRAN MAT (NEUT) % (test code = 770-8) 76.7 % IMM GRAN % (test code = 4862637260) 0.50 % LYMPH % (test code = 736-9) 14.3 % MONO % (test code = 5905-5) 7.6 % EOS % (test code = 713-8) 0.5 % BASO % (test code = 706-2) 0.4 % GRAN MAT x10^3(ANC) (test code = 3573688525) 8.53 10*3/uL 1.88-7.09 H IMM GRAN x10^3 (test code = 1282521608) 0.06 10*3/uL 0-0.06 LYMPH x10^3 (test code = 731-0) 1.59 10*3/uL 1.32-3.29 MONO x10^3 (test code = 742-7) 0.84 10*3/uL 0.33-0.92 EOS x10^3 (test code = 711-2) 0.05 10*3/uL 0.03-0.39 BASO x10^3 (test code = 704-7) 0.04 10*3/uL 0.01-0.07 Lab Interpretation (test code = 30680-3) Abnormal [facility] URINALYSIS W SPECIFIC [id number] 14:17:00* Test Item Value Reference Range Interpretation Comme nts POCT U SP GRAV (test code = 3255) . 1.005-1.025 POCT PH U (test code = 3254) . 5-8 POCT U LEUK EST (test code = 3263) . Negative - N egative POCT U NIT (test code = 3262) . Negative - Negati ve POCT U PROT (test code = 3259) Trace Negative - Negat richar POCT U GLU (test code = 3256) Neg Negative - Negati ve POCT U KETONE (test code = 3258) . Negative - Neg ative POCT U UROBILI (test code = 3260) . 0.2-1 POCT U BILI (test code = 3261) . Negative - Negat richar POCT U BLD (test code = 3257) . Negative - Negati ve POCT U COLOR (test code = 3266) POCT U APPEAR (test code = 3267) [facility] URINALYSIS W SPECIFIC [id number] 15:35:00* Test Item Value Reference Range Interpretation Comme nts POCT U SP GRAV (test code = 3255) . 1.005-1.025 POCT PH U (test code = 3254) . 5-8 POCT U LEUK EST (test code = 3263) . Negative - N egative POCT U NIT (test code = 3262) . Negative - Negati ve POCT U PROT (test code = 3259) Trace Negative - Negat richar POCT U GLU (test code = 3256) Neg Negative - Negati ve POCT U KETONE (test code = 3258) . Negative - Neg ative POCT U UROBILI (test code = 3260) . 0.2-1 POCT U BILI (test code = 3261) . Negative - Negat richar POCT U BLD (test code = 3257) . Negative - Negati ve POCT U COLOR (test code = 3266) POCT U APPEAR (test code = 3267) [facility] URINALYSIS W SPECIFIC [id number] 14:27:00* Test Item Value Reference Range Interpretation Comme nts POCT U SP GRAV (test code = 3255) . 1.005-1.025 POCT PH U (test code = 3254) . 5-8 POCT U LEUK EST (test code = 3263) . Negative - N egative POCT U NIT (test code = 3262) . Negative - Negati ve POCT U PROT (test code = 3259) Trace Negative - Negat richar POCT U GLU (test code = 3256) Neg Negative - Negati ve POCT U KETONE (test code = 3258) . Negative - Neg ative POCT U UROBILI (test code = 3260) . 0.2-1 POCT U BILI (test code = 3261) . Negative - Negat richar POCT U BLD (test code = 3257) . Negative - Negati ve POCT U COLOR (test code = 3266) POCT U APPEAR (test code = 3267) [facility] CenterANTIBODY TITER [id number] 15:17:50* Test Item Value Reference Range Interpretation Comme nts TITERED AB (test code = 1141) Ab Titered: Fya Performed at [facility] Laboratory [address] Free: [phone] No. [id number] AB TITER (test code = 247) Antibody Titer: 4 Performed at [facility] Laboratory [place] [address]Toll Free: [phone] No. [id number] [facility] CenterANTIBODY TITER [id number] 15:17:16* Test Item Value Reference Range Interpretation Comme nts TITERED AB (test code = 1141) Ab Titered: K Performed at [address] Free: [phone] No. [id number] AB TITER (test code = 247) Antibody Titer: 8 Performed at [facility] [address] Free: [phone] No. [id number] [facility] CenterPANEL [id number] 13:49:50 ANTIBODY ZOAjhj-ChjUnog-S Comment: Performed at [facility] Laboratory Services [address] Free: [phone] No. [id number] [facility] 2019-08-05 13:47:05* Test Item Value Reference Range Interpretation Comme nts ABO & RH (test code = 20) O POSITIVE Performed at [facility] Laboratory Services - [facility] Blood [address] [address]Crcu Free: [phone] No. [id number] IAT (test code = 1185) Positive Performed at [facility] Laboratory Services - [facility] Blood [address] [address]Byoi Free: [phone] No. [id number] [facility] URINALYSIS W/O SPECIFIC [id number] 15:38:00* Test Item Value Reference Range Interpretation Comme nts POCT PH U (test code = 3254) 5 mg/dl 5-8 POCT U LEUK EST (test code = 3263) trace Negative - Negative POCT U NIT (test code = 3262) neg Negative - Negati ve POCT U PROT (test code = 3259) trace Negative - Negat richar POCT U GLU (test code = 3256) neg Negative - Negati ve POCT U KETONE (test code = 3258) neg Negative - Neg ative POCT U BLD (test code = 3257) neg Negative - Negati ve Lab Interpretation (test cod e = 77613-2) Abnormal [facility] URINALYSIS W/O SPECIFIC [id number] 15:38:00* Test Item Value Reference Range Interpretation Comme nts POCT PH U (test code = 3254) 5 mg/dl 5-8 POCT U LEUK EST (test code = 3263) trace Negative - Negative POCT U NIT (test code = 3262) neg Negative - Negati ve POCT U PROT (test code = 3259) trace Negative - Negat richar POCT U GLU (test code = 3256) neg Negative - Negati ve POCT U KETONE (test code = 3258) neg Negative - Neg ative POCT U BLD (test code = 3257) neg Negative - Negati ve Lab Interpretation (test cod e = 62062-7) Abnormal [facility] URINALYSIS W/O SPECIFIC [id number] 15:38:00* Test Item Value Reference Range Interpretation Comme nts POCT PH U (test code = 3254) 5 mg/dl 5-8 POCT U LEUK EST (test code = 3263) trace Negative - Negative POCT U NIT (test code = 3262) neg Negative - Negati ve POCT U PROT (test code = 3259) trace Negative - Negat richar POCT U GLU (test code = 3256) neg Negative - Negati ve POCT U KETONE (test code = 3258) neg Negative - Neg ative POCT U BLD (test code = 3257) neg Negative - Negati ve Lab Interpretation (test cod e = 44544-4) Abnormal [facility] URINALYSIS W SPECIFIC [id number] 14:33:00* Test Item Value Reference Range Interpretation Comme nts POCT U SP GRAV (test code = 3255) . 1.005-1.025 POCT PH U (test code = 3254) 5 mg/dl 5-8 POCT U LEUK EST (test code = 3263) neg Negative - Negative POCT U NIT (test code = 3262) neg Negative - Negati ve POCT U PROT (test code = 3259) trace Negative - Negat richar POCT U GLU (test code = 3256) neg Negative - Negati ve POCT U KETONE (test code = 3258) neg Negative - Neg ative POCT U UROBILI (test code = 3260) . 0.2-1 POCT U BILI (test code = 3261) . Negative - Negat richar POCT U BLD (test code = 3257) neg Negative - Negati ve POCT U COLOR (test code = 3266) POCT U APPEAR (test code = 3267) [facility] SPECIFIC [id number] 14:33:00* Test Item Value Reference Range Interpretation Comme nts POCT U SP GRAV (test code = 3255) . 1.005-1.025 POCT PH U (test code = 3254) 5 mg/dl 5-8 POCT U LEUK EST (test code = 3263) neg Negative - Negative POCT U NIT (test code = 3262) neg Negative - Negati ve POCT U PROT (test code = 3259) trace Negative - Negat richar POCT U GLU (test code = 3256) neg Negative - Negati ve POCT U KETONE (test code = 3258) neg Negative - Neg ative POCT U UROBILI (test code = 3260) . 0.2-1 POCT U BILI (test code = 3261) . Negative - Negat richar POCT U BLD (test code = 3257) neg Negative - Negati ve POCT U COLOR (test code = 3266) POCT U APPEAR (test code = 3267) [facility] CenterANTIBODY TITER [id number] 11:17:08* Test Item Value Reference Range Interpretation Comme nts TITERED AB (test code = 1141) Ab Titered: Fya Performed at [facility] Laboratory [place] [address]Toll Free: [phone] No. [id number] AB TITER (test code = 247) Antibody Titer: 8 Performed at [facility] [place] [address]Toll Free: [phone] No. [id number] [facility] CenterANTIBODY TITER [id number] 11:17:08* Test Item Value Reference Range Interpretation Comme nts TITERED AB (test code = 1141) Ab Titered: Fya Performed at [place] [address]Toll Free: [phone] No. [id number] AB TITER (test code = 247) Antibody Titer: 8 Performed at [facility] [place] [address]Toll Free: [phone] No. [id number] [facility] CenterANTIBODY TITER [id number] 11:16:14* Test Item Value Reference Range Interpretation Comme nts TITERED AB (test code = 1141) Ab Titered: K Performed at [facility] Laboratory [place] [address]Toll Free: [phone] No. [id number] AB TITER (test code = 247) Antibody Titer: 4 Performed at [facility] Laboratory Services - [address] [address]Lxzv Free: [phone] No. [id number] [facility] CenterANTIBODY TITER [id number] 11:16:14* Test Item Value Reference Range Interpretation Comme nts TITERED AB (test code = 1141) Ab Titered: K Performed at [facility] Laboratory Services - [place] [address]Toll Free: [phone] No. [id number] AB TITER (test code = 247) Antibody Titer: 4 Performed at [facility] Laboratory [facility] - [place] [address]Toll Free: [phone] No. [id number] [facility] [id number] 11:16:13 ANTIBODY AWBzlw-EfhLldl-K Comment: Performed at [facility] Laboratory Services - [address] Free: [phone] No. [id number] [facility] IDENTIFICATION 2019-02-25 11:16:13ANTIBODY ZOTncy-ZofWdfc-L Comment: Performed at [facility] Services - [address] [address]Hxaj Free: [phone] No. [id number] [facility], BLOOD [id number] 07:33:42* Test Item Value Reference Range Interpretation Comme nts ABO & RH (test code = 20) O Positive Performed at [facility] Laboratory Services - [place] [address]Toll Free: [phone] No. [id number] IAT (test code = 1185) Positive Performed at [facility] Laboratory Services - [address] [address]Tem[address] Free: [phone] No. [id number] [facility], BLOOD [id number] 07:33:42 * Test Item Value Reference Range Interpretation Comme nts ABO & RH (test code = 20) O Positive Performed at [facility] Laboratory Services - [facility] Blood [address] Free: [phone] No. [id number] IAT (test code = 1185) Positive Performed at [facility] Laboratory Services [facility] Blood [address] Free: [phone] No. [id number] [facility] CenterPO[facility] URINALYS[facility] W SPECIFIC [id number] 15:07:00* Test Item Value Reference Range Interpretation Comme nts POCT U SP GRAV (test code = 3255) . 1.005-1.025 POCT PH U (test code = 3254) 5 mg/dl 5-8 POCT U LEUK EST (test code = 3263) neg Negative - Negative POCT U NIT (test code = 3262) neg Negative - Negati ve POCT U PROT (test code = 3259) neg Negative - Negat richar POCT U GLU (test code = 3256) neg Negative - Negati ve POCT U KETONE (test code = 3258) neg Negative - Neg ative POCT U UROBILI (test code = 3260) . 0.2-1 POCT U BILI (test code = 3261) . Negative - Negat richar POCT U BLD (test code = 3257) neg Negative - Negati ve POCT U COLOR (test code = 3266) POCT U APPEAR (test code = 3267) [facility] SPECIFIC [id number] 15:07:00* Test Item Value Reference Range Interpretation Comme nts POCT U SP GRAV (test code = 3255) . 1.005-1.025 POCT PH U (test code = 3254) 5 mg/dl 5-8 POCT U LEUK EST (test code = 3263) neg Negative - Negative POCT U NIT (test code = 3262) neg Negative - Negati ve POCT U PROT (test code = 3259) neg Negative - Negat richar POCT U GLU (test code = 3256) neg Negative - Negati ve POCT U KETONE (test code = 3258) neg Negative - Neg ative POCT U UROBILI (test code = 3260) . 0.2-1 POCT U BILI (test code = 3261) . Negative - Negat richar POCT U BLD (test code = 3257) neg Negative - Negati ve POCT U COLOR (test code = 3266) POCT U APPEAR (test code = 3267) [facility]IFIC [id number] 15:07:00* Test Item Value Reference Range Interpretation Comme nts POCT U SP GRAV (test code = 3255) . 1.005-1.025 POCT PH U (test code = 3254) 5 mg/dl 5-8 POCT U LEUK EST (test code = 3263) neg Negative - Negative POCT U NIT (test code = 3262) neg Negative - Negati ve POCT U PROT (test code = 3259) neg Negative - Negat richar POCT U GLU (test code = 3256) neg Negative - Negati ve POCT U KETONE (test code = 3258) neg Negative - Neg ative POCT U UROBILI (test code = 3260) . 0.2-1 POCT U BILI (test code = 3261) . Negative - Negat richar POCT U BLD (test code = 3257) neg Negative - Negati ve POCT U COLOR (test code = 3266) POCT U APPEAR (test code = 3267) [facility] ONLY PAP SMEAR-LIQUID [id number] 15:19:00* Test Item Value Reference Range Interpretation Comme [facility] Case Report (test code = 7735754560) Gynecologic Cytology?Case: [id number]? Authorizing Provider:?Lindy Godwin,?Collected:? 01/26/2019 1135??? [facility]?Ordering Location:? [facility]-? Received:?01/26/2019 2341?? Anahi? First Screen:?Adail Munroe? Specimen:?Liquid Based Pap Preparation, CERVIX? Clinical Information (test code = 7273361991) routine Specimen Adequacy (test code = 01985-4) Satisfactory for Evaluation(Endocervical /Transformation Zone Component Absent) Interpretation (test code = 14627-8) Negative for intraepithelial lesion or malignancy Other Findings (test code = 9905339728) Shift In Blossom Suggestive Of Bacterial Vaginosis Comments (test code = 7291275211) x8drvHZmKEJazBZlXsYlCOL hFFWqf3ciWIWefOCmQqYfNi NcZnRuYmpcdWMxXGRlZmYwe 8tpk766oVYnl2hzUQWxZdF6 pTDrLFZprZHiX243HCQgQNh hh1sux8FlCAVfxWHlo9Z8SG EKECkrNsKdZ898r7fpj0aog jAohOP5MFGhTDNoP5KgTY8t SKXolGDdGHcrhuTcSaO9EFr xVLStRhC7QYYapHCdBWJzC9 56LIE0pYjwu2enSXG4HGXjL XLnKeLpMx1ruEPxW036ADUy ISXIKZLsuVo4IEYscmIogbA afCFHo124B006e7oeOPPpbo NvoRyYhhhxp9toC219HWLvr GVydzEyMjQwXHBhcGVyaDE1 XBUeLL4looofRKR2RVzlFUT lqcLwCUSujJNtG0L9JeIhxZ EqC1QxHIedWTPrsyo9PqLaX h2wjJPqfLL3DUhps5zcm4in qDAeSrf9TMPlQcNzGegyUQk jc1Kou3csHAAecx5eZIF3dP WscVibn8J6sSFkHXUyoHBqj tNyGRZnSmW5HMorUL1kxs35 YOQfMVV7me4ncOMnoMlvdoV pzBCeABkzT1RkTJPbp126ZP QmA4HfUGJnw0U5fuWbDmKpZ QAkoBC5riY8FHNmLZx2vDKn unX2boShsBIjN4fspG9uHEh pUM8cwzyjg9vnEBN3NWftUH PmkLD5rqqlBKccVIIqImJ2d mMrbWVdSVWmxGkxQUkme443 SBN6VgUvUNHwz3ZxV0KnuCw jH85ueZovS64pYDQrxFtekZ 7bqRefxD7uKcJaVjZeYDhiI XJkXHBsYWluXGYwXGZzMjBc sFlzuB1aVjHoEuGaIqrtQS3 hIFMmT3bpaXTzUQThLTIpE3 pdVlHcsR4diDfpPYeuVpFcZ mSkXufqQKIkcwNjou6xFNRf wfDgpdDufWTdFVVfEwbzD5n 4t4KhK2saw6dgR6nmkFTkuF pccGFyIFVuaXZlcnNpdHkgb 0RxJJR0KXYrFNWcdBDlhIBD qzOuC0sfLJJlc0FuyP7fjDJ KQWT7dOJvtaMmVEwmCHi1AW NVkKO0CXIqwVV4s6ipUGUiG bI5KIYQnDjxJDLyIPU8EAgw U340hGpdsNNcRIFmPUQoJPr eLTTdLAZkJsRzfWkalM8pOx OgIfAsEdywHT0rNTMfP6pcl DIwAQNqMBOgK5mcOjOmdS9b aFxmMVxjZjFcZnMxNlxpIEx hRXh3WEXWtVS4GHIICAN0Xo M2A8kdoIFwlvviMCpsbuFbP HBhclxwYXJ9 LMP (test code = 9687396197) Educational Note (test code = 2315689003) n2pruADtXGZfa3wlPSCfxUS uZzEwMzNcZnRuYmpcdWMxIH hqwnFoXVwwa8MnY3UsFJLfD FxhbnNpXGRlZmxhbmcxMDMz LKX0swFdTYVqAGqiTRRyEIc cIn4deENpxTxcQxYqEXAzw9 mbbqSDfvcleWx5y0ddUHZdM uM1oPSyYAqzT4jswzEtoCQz TPMeLHx3vA13KQTlnA0ufCU sEUgjmbKyYeK2DVtoZWWrUb Q4MJOphOGvGDEbO5qrYNDeM TEaM9AmTH8rVascWse9HYI5 IDtccmVkMFxncmVlbjBcYmx 2ILOyS352WDP5cUfjj7htHN Q6VZTzVGQrQnOoBt8xlKIlA 631PICoIMLIAJOylGs8HEVf cxXgneLaiYLZp791G992d5f iYDXdfcHgxXwRqttlf5puS5 19XHBhcGVydzEyMjQwXHBhc GBhhWM6CNFuFQ2tjiseHAwa TCafTVAaarT5FRIctWZrO0X mICXyFO1vxyouDCP7IKskSO VgLVR3WoRnPRKtv2Mkzsm3W lKiik4akc36SAR9j9WgdSmi ZPZ6EXK9EaOdWi5boREmKAZ yXA8lKgBdsSLvEKTnxz96hP amDPaberXypS4xBpTzZGMtu SGcDKGpIS2fcGQmNFQxuI6e cmxjXHBnYnJkcmhlYWRccGd cwbNuBw8gaRykYXR4IBtpH0 pjlR2sOzG7NZptM6bjlH6tP Np7MOfgsBC0DGNivS7jRW0k qsauk5ubYOtmZQdnOUZuzaC 0dgU7FXBlpRKqP9WkaL0dBM RqQM1dzihbg1trYGC3TDmfL HHaOCX7WvCoEMMqt9Mooso7 LbJda8NmzAXgRDcpL85qo76 0DTElxyLjD9movRYuvnrdbB OgaftiZKuhywC4PCMqODIwG WluXGYxXGZzMjJcbGFuZzEw MzNcaGljaFxmMVxkYmNoXGY xWOmeJ5sdLhKhO8ZgZLSiAk PgmKZSPSO5uUGknBMjaBVno A4xoWZkZEUsMHHze2KlQXph HMPtm2CxHGEsiS6oKGUab8G yeBEpkVUxiAq2YQNojsWlhG BydH26plTuUD2xNCErWVFrL MVnymLayLOzp6LhAhMXfLFl eTGgaXYxZCHpMR9nbJ8wELO ykmTxQUY4qCTbp8nsTMDbc2 ZqHinwdRB6FG7eWPYflZToJ Y6fZ0H4nRXvPOKwSOGjQTcs PI1au9YprJx1XGIwYDA3zXW vSoCoIgQchLqvrcFbHG4owE qmYpYvbhRwDv4okL51TMIzX C4aMXRvFQmnaIOdywVmVOSl sT4xO8YoBITbE28nYOXrCNH wvK7iqD8zesJaqiSxjdNxj5 5qLH4wJSJsjY5nlSjnzE1bz mUgdGhlIGVmZmVjdCBvZiBm JYukXJLdGRczwIk0ISFiREU 0oWTjQpUnQO57qnIvCNLtRT 52VWPag5VwHGSkZYHyTO2en xZrKOO5ksWsa82vaFk7IRuh gMGvsE1tRAlgpEYntHNtBwK spAOuKRenZDTgWX9lROAgTA 55IHVuZXhwbGFpbmVkIGNsa J3iJ6GgFRJyW55nSBRnQXIr bU1wjX5xcdjeqxToAALtfBK zcyBvZiBhbnkgUGFwIFRlc3 XppsReyEj8YzqhqWFyjfwaP VxmczIyXGxhbmcxMDMzXGhp G6jeUdZmZNTcmRbtKHokl5B oXGYxXGZzMjJccGFyfX0= Embedded Images (test code = 5501290993) [facility] ONLY PAP SMEAR-LIQUID [id number] 15:19:00* Test Item Value Reference Range Interpretation Comme nts Case Report (test code = 9063114616) Gynecologic Cytology?Case: [id number]? Authorizing Provider:?Lindy Godwin,?Collected:? 01/26/2019 1135?? CNP?Ordering Location:? [facility]-? Received:?01/26/2019 2341?? [place]? First Screen:?Adali Munroe? Specimen:?Liquid Based Pap Preparation, CERVIX? Clinical Information (test code = 8060402892) routine Specimen Adequacy (test code = 35140-3) Satisfactory for Evaluation(Endocervical /Transformation Zone Component Absent) Interpretation (test code = 98226-8) Negative for intraepithelial lesion or malignancy Other Findings (test code = 9621912073) Shift In Blossom Suggestive Of Bacterial Vaginosis Comments (test code = 7304748572) f7uvrVPnSRRiyHHxJeOgFTV mLVLyq5uqETBqzFEuUnTdDm NcZnRuYmpcdWMxXGRlZmYwe 8zji713tRTxy2scQWHdWaM4 dFJfBAGbmCIgL029YJVnDBx bk4udr5CyCGJszPXam3V0YN CJCNsmMhIyZ733p9pnv4llc aPxmDY3MDQfQUYuQ3FjJE4m SFFfoHRvXXxfynQoCyW5HZs aPFLiKkP3UPVgoHQyEKYoK5 11SIA7mLnrk3sxGCE4DFKuX BEeNkQsDz3alCJyS052ZGGm CLUFSHIalOz7FGRyowBtbdQ lvWEFq923A686c4wuPKRmlx UazKwZnxsed4kpL614QNCbe GVydzEyMjQwXHBhcGVyaDE1 AEXeUW5umszkGOT3VEwgGTD lzyDrEZOafNTvY9T4GiHmwZ FrX3EaZZlkLEPfvqr8RbZvK h8gvEZcfXK4OPdhz9aqv6fd tHUsKim9BIYdNdNcGlbqUAr pd9Wbz3tzCJUwud0hHMA4fZ RsnRybg6J6dFCmBYDtbILvu nKtMPSrDyE7ROwjSJ7upd93 KWZkYCF4sx6nrTBsgSjbphN djEGtFWqjS0GyLIVlz682AH YfX3FcEVIgp2V4gzFcKdCtT QGwqZS8otX3QFKxKAp2tKHg ljH5wtUwzLJgO7ytvS5wQFr oOI0quaggf2mxCMJ8CEyySN QpxZR1ocdlBVmaLINzQiX1r dFgeTLqXUUhkWwuLCerm452 UBX4IbIfYPTis2UpO8ZvaYd pE60deBfpV98tTCXebEpbcF 9nhYdbpD3dVrSxNjXyZUvbJ XJkXHBsYWluXGYwXGZzMjBc zRfdlU6yEiNkOcOtHegfUC1 oZBTlN9zmtDAwKPJiTILdA6 keMbMvjG9tnBonOPnqSeZdY aJkDdvkCVRkbkQmme1tSYIj dwBfylYasJZeEGAoBqqwE6v 3h7CgE5lud1svY2nopBKcdV pccGFyIFVuaXZlcnNpdHkgb 7AaQMA1BXRbLFQmwNSfnOPN gzGbW8hsQQAae0LnaM2ogLQ DXLX3uMWynqFgUAnnWJg2FX TFnAW7HHHhvTS3d5zcRWPiG lU0LWQSjLoyZIFnQCT8XEyd Z431cXegvADlJMVzGAWeUUh lRUWnDDZmWaOasIgtpK8dJw ExEtFaFsaxZI6eLZMmL2dvf QBrKSYlUAPfF0ecIoQviB9p aFxmMVxjZjFcZnMxNlxpIEx tPYn7SUNZnDM7XANKXDW3Fk H2E4pmkUTfnzqlOEfwflSuK HBhclxwYXJ9 LMP (test code = 5391889769) Educational Note (test code = 4785740843) e1sqaMMbQHVuw0ceNYPmrIJ uZzEwMzNcZnRuYmpcdWMxIH obreKmJJokn9XrI6HdOWIrZ FxhbnNpXGRlZmxhbmcxMDMz XWT8fnLrGOYvZYbuDUXnXYw rUn1emIEmrEtzUzPgYETkt0 fhtfUTyyykpFg6b1aoQYKiG lP7tDNxHRgxA7euzfMftSQg JPUmDNd4aL32WKOniD0chBO gAYcnsrHjAvZ4PYqmGMLaTn Z2CQOoiPStUPKiF9qsHNUbO TCoW6ToLT7xHrxtUgz6DDP6 IDtccmVkMFxncmVlbjBcYmx 0GFAyQ708TVN0kWdqp2lqNL C6AQZaZIVkSxFmTg8cnXJfY 774BHDbMFAJVPOiuQf2JOLn cpSklsZjnGRIk114R375a5k cHYUaqgHhjHtTelaqn0faK1 19XHBhcGVydzEyMjQwXHBhc GPgdWM7VCOeIZ4wezjoDOfs VOtlCDTccwQ0CIWpbRTlL2V dHNYkBU1tobvyFPJ4CCtsHT JwPSV5RfVfVLLlo1Whcxb3A oTtoh9mib17EIK3i1GmkXkq CDX4DVW1TpHmBa8geIHbOPZ dLJ6vYcGfwVBzVWTszz64lX tcACgyjlVgvS5tMeZgREQoe GAtGMLxMU5voJLeTQBlqG0r cmxjXHBnYnJkcmhlYWRccGd pyzRzNu5zyAepLTA4VQgcM0 tdgK9eRzK7LInrO6uxkM2hF Oy8COqbqET4VKFcvC0rQG3y gsacc7xzEBuvKYyxKJVghuO 9euK1IZNexSNeO6NuyV1eDP VuBP4ktjeif1foKQX6YNxyW FPoMOT0CjFsLKXru0Roolo5 GbJtm7UlsJBhMIuoK21bh24 7ECVexlTgH4nyhTDcfvqdwM ShrffuBDkligZ8KVZkFJQjS WluXGYxXGZzMjJcbGFuZzEw MzNcaGljaFxmMVxkYmNoXGY kHUhtV2sxZeEvT0QgITGsNc RkuYCQMEX1jJFekOZkiZXyu G9adIBjKCAyUCOos4LgLKpk BJZnt2PxGTQdmN4lWLWuy7Z weQEkgYAswWo3KLXuciHxvJ FkzA19siMnNY5vNIXnOGZvU RXuthXpmNKgi6PmZvOMtPAh ySPvuTEkBUPnHQ3bfM9aOOM izfHvIGW2qIIef5ftAGGxp8 OxNhotwUN0IZ5aLDQhwZLzK F5uQ6C6iLLrDBItKXJzJEvw PK3yi2CabWs1KBEaCPW4yRP kXeAmFsDutZpzigOtKX3ssI mdOgLedzZqXg7xwH67USIbE K3jASAxBIcalKVoniPuWWJl eE3jD4QcVZYiI17xSYDcTRX vzI2exJ4zptJgxgFfisPvp4 9iHF0zXJOphO3quXrqhU9jl mUgdGhlIGVmZmVjdCBvZiBm KXtgDGOuLJfirSa7RIYxNPV 9bQXpNnZeCY91eqNnJXVwOK 32ICMvt0CqRZRlSSMvJL1bv kDdQCH0uvUhj46kpTv8QIpa cTRkyD6jTBhlzRSzdSGbRwY faHRbHOwrKWPpYH9uNDLmET 55IHVuZXhwbGFpbmVkIGNsa W7tJ8AhMNYaM06cSBKwIVLn rG2dyX9ykcliskLvJZPqkUM zcyBvZiBhbnkgUGFwIFRlc3 YwqtItoWs1JlpxsBKxjatdU VxmczIyXGxhbmcxMDMzXGhp N0yvJsEsVXBoiVttTBeej1V oXGYxXGZzMjJccGFyfX0= Embedded Images (test code = 0387375505) [facility] [id number] 12:23:00* Test Item Value Reference Range Interpretation Comme nts URINE CULTURE (test code = 630-4) > 100,000 CFU/mL mixed aerobic organisms - suggests endogenous microbial contamination [facility] [id number] 12:23:00* Test Item Value Reference Range Interpretation Comme nts URINE CULTURE (test code = 630-4) > 100,000 CFU/mL mixed aerobic organisms - suggests endogenous microbial contamination [facility] CHLAMYDIA AMPLIFIED [id number] 23:43:00* Test Item Value Reference Range Interpretation Comme nts Lab Interpretation (test cod e = 05607-3) Normal [facility] CHLAMYDIA AMPLIFIED [id number] 23:43:00* Test Item Value Reference Range Interpretation Comme nts Lab Interpretation (test cod e = 43853-3) Normal [facility] CenterRU[facility]LLA SCREEN ([facility]A) [id number] 16:17:00 * Test Item Value Reference Range Interpretation Comme nts Rubella screen IgG (test code = 0487198515) Positive Negative LUTHER (test code = LUTHER) Positive - Indicat es the patient was exposed to Rubella through infection or vaccination.Negative - Indicates the patient could be susceptible to Rubella infection.Equivocal - A second specimen should be sent. [facility] ANTIBODY [id number] 16:17:00* Test Item Value Reference Range Interpretation Comme [facility] VZV IgG antibody (test code = 20884-6) Positive Negative LUTHER (test code = LUTHER) Positive - Indicat es the patient was exposed to VZV through infection or vaccination.Negative - Indicates the patient could be susceptible to VZV infection.Equivocal - A second specimen should be sent for testing. [facility] ([place]) [id number] 16:17:00 * Test Item Value Reference Range Interpretation Comme [facility] Rubella screen IgG (test code = 0589066445) Positive Negative LUTHER (test code = LUTHER) Positive - Indicat es the patient was exposed to Rubella through infection or vaccination.Negative - Indicates the patient could be susceptible to Rubella infection.Equivocal - A second specimen should be sent. [facility] ANTIBODY [id number] 16:17:00* Test Item Value Reference Range Interpretation Comme [facility] VZV IgG antibody (test code = 13487-1) Positive Negative LUTHER (test code = LUTHER) Positive - Indicat es the patient was exposed to VZV through infection or vaccination.Negative - Indicates the patient could be susceptible to VZV infection.Equivocal - A second specimen should be sent for testing. [facility] ONLY - SYPHILIS [id number] 14:51:00* Test Item Value Reference Range Interpretation Comme [facility] Syphilis IgG/IgM (test code = 50464-3) Non-reactive Non-reactive LUTHER (test code = LUTHER) Non-reactive - No serologic evidence of T. pallidum infection. Cannot exclude incubating or early syphilis. Submit a second specimen in 2-4 weeks if syphilis is clinically suspected.Equivocal - Further testing to follow.Reactive - Further testing to follow. Lab Interpretation (test code = 52082-1) Normal [facility] ONLY - SYPHILIS [id number] 14:51:00* Test Item Value Reference Range Interpretation Comme [facility] Syphilis IgG/IgM (test code = 28248-7) Non-reactive Non-reactive LUTHER (test code = LUTHER) Non-reactive - No serologic evidence of T. pallidum infection. Cannot exclude incubating or early syphilis. Submit a second specimen in 2-4 weeks if syphilis is clinically suspected.Equivocal - Further testing to follow.Reactive - Further testing to follow. Lab Interpretation (test code = 55927-9) [facility] Branch[facility] TITER [id number] 11:22:09* Test Item Value Reference Range Interpretation Comme nts TITERED AB (test code = 1141) Ab Titered: Fya Performed at [facility] Laboratory Services [place] [address]Toll Free: [phone] No. [id number] AB TITER (test code = 247) Antibody Titer: <[address] [facility] Laboratory Services [place] [address]Toll Free: [phone] No. [id number] [facility] Center[facility] TITER [id number] 11:22:09* Test Item Value Reference Range Interpretation Comme nts TITERED AB (test code = 1141) Ab Titered: Fya Performed at [place] [address]Toll Free: [phone] No. [id number] AB TITER (test code = 247) Antibody Titer: <[address] [facility] Laboratory [place] [address]Toll Free: [phone] No. [id number] [facility] BranchANTIBODY TITER [id number] 11:22:06* Test Item Value Reference Range Interpretation Comme nts TITERED AB (test code = 1141) Ab Titered: K Performed at [facility] Laboratory [place] [address]Toll Free: [phone] No. [id number] AB TITER (test code = 247) Antibody Titer: <[address] [facility] Laboratory Services [place] [address]Toll Free: [phone] No. [id number] [facility] BranchANTIBODY TITER [id number] 11:22:06* Test Item Value Reference Range Interpretation Comme nts TITERED AB (test code = 1141) Ab Titered: K Performed at [facility] Laboratory Services [address] Free: [phone] No. [id number] AB TITER (test code = 247) Antibody Titer: <[address] [facility] Laboratory Services [address] Free: [phone] No. [id number] [facility] [id number] 10:41:26 ANTIBODY QZBxlr-BatYjwb-B Comment: Performed at [facility] Laboratory Services [address] Free: [phone] No. [id number] [facility] IDENTIFICATION 2019-01-27 10:41:26ANTIBODY ZJTzyn-BnwTgbq-E Comment: Performed at [facility] Laboratory Services [address] Free: [phone] No. [id number] [facility] [id number] 10:41:26ANTIBODY USFdcn-SuuWaap-U Comment: Performed at [facility] Laboratory Services - [address] Free: [phone] No. [id number] [facility] [id number] 10:41:26ANTIBODY HNQelq-CbmOwhs-D Comment: Performed at [facility] Laboratory Services [address] Free: [phone] No. [id number] [facility] [id number] 09:46:00 * Test Item Value Reference Range Interpretation Comme nts HCV Semi-Quantitative (test code = 70899-5) [facility] 1/2 AG-AB WITH [id number] 09:46:00* Test Item Value Reference Range Interpretation Comme nts HIV Semi-quantitative (test code = 92085-5) Negative Negative LUTHER (test code = LUTHER) Non-reactive for HIV-1 antigen and HIV-1/HIV-2 antibodies.?No laboratory evidence of HIV infection.?Repeat in 2-4 weeks if acute HIV infection is suspected. [facility] Center[facility] [id number] 09:46:00* Test Item Value Reference Range Interpretation Comme nts HCV Semi-Quantitative (test code = 05565-6) [facility]2 AG-AB WITH [id number] 09:46:00* Test Item Value Reference Range Interpretation Comme nts HIV Semi-quantitative (test code = 68610-4) Negative Negative LUTHER (test code = LUTHER) Non-reactive for HIV-1 antigen and HIV-1/HIV-2 antibodies.?No laboratory evidence of HIV infection.?Repeat in 2-4 weeks if acute HIV infection is suspected. [facility] CenterANTIGEN TYPING [id number] 09:35:20* Test Item Value Reference Range Interpretation Comme nts ANTIGEN ID (test code = 1687) Leb Antigen Negative Performed at [facility] Laboratory Services - [facility] Blood [address] Free: [phone] No. [id number] ANTIGEN ID (test code = 62) M Antigen Positive Performed at [facility] Laboratory Services - [address] Free: [phone] No. [id number] ANTIGEN ID (test code = 63) N Antigen Negative Performed at [facility] Laboratory Services - [facility] Blood [address] Free: [phone] No. [id number] ANTIGEN ID (test code = 64) Tg Antigen Positive Performed at [facility] Laboratory Services - [address] Free: [phone] No. [id number] ANTIGEN ID (test code = 1688) Fya Antigen Negative Performed at [facility] Laboratory Services - [address] Free: [phone] No. [id number] [facility] [id number] 09:35:20* Test Item Value Reference Range Interpretation Comme nts ANTIGEN ID (test code = 1687) Leb Antigen Negative Performed at [facility] Laboratory Services - [address] Free: [phone] No. [id number] ANTIGEN ID (test code = 62) M Antigen Positive Performed at [facility] Laboratory Services - [address] Free: [phone] No. [id number] ANTIGEN ID (test code = 63) N Antigen Negative Performed at [facility] Laboratory [address] Free: [phone] No. [id number] ANTIGEN ID (test code = 64) Tg Antigen Positive Performed at [facility] Laboratory Services [address] Free: [phone] No. [id number] ANTIGEN ID (test code = 1688) Fya Antigen Negative Performed at [facility] Laboratory [address] Free: [phone] No. [id number] [facility] SURFACE [id number] 09:30:00 * Test Item Value Reference Range Interpretation Comme nts HBsAg Semi-Quantitative (veronica t code = 5195-3) [facility] B SURFACE [id number] 09:30:00 * Test Item Value Reference Range Interpretation Comme nts HBsAg Semi-Quantitative (veronica t code = 5195-3) [facility] [id number] 08:58:34* Test Item Value Reference Range Interpretation Comme nts ANTIGEN ID (test code = 1687) Fyb Antigen Positive Performed at [facility] Laboratory Services - [place] [address] Free: [phone] No. [id number] [facility] [id number] 08:58:34* Test Item Value Reference Range Interpretation Comme nts ANTIGEN ID (test code = 1687) Fyb Antigen Positive Performed at [facility] Laboratory Services - [address] Free: [phone] No. [id number] [facility] [id number] 08:49:20* Test Item Value Reference Range Interpretation Comme nts ANTIGEN ID (test code = 1687) Jkb Antigen Positive Performed at [facility] Laboratory Services - [address] Free: [phone] No. [id number] ANTIGEN ID (test code = 62) P1 Antigen Positive Performed at [facility] Laboratory Services - [address] Free: [phone] No. [id number] ANTIGEN ID (test code = 63) S Antigen Negative Performed at [facility] Laboratory Services - [address] Free: [phone] No. [id number] ANTIGEN ID (test code = 64) s Antigen Positive Performed at [facility] Laboratory Services - [address] Free: [phone] No. [id number] ANTIGEN ID (test code = 1688) e Antigen Positive Performed at [facility] Laboratory Services - [place] [address]Toll Free: [phone] No. [id number] [facility] [id number] 08:49:20* Test Item Value Reference Range Interpretation Comme nts ANTIGEN ID (test code = 1687) Jkb Antigen Positive Performed at [facility] Laboratory Services - [address] Free: [phone] No. [id number] ANTIGEN ID (test code = 62) P1 Antigen Positive Performed at [facility] Laboratory Services - [address] Free: [phone] No. [id number] ANTIGEN ID (test code = 63) S Antigen Negative Performed at [facility] Laboratory Services - [address] Free: [phone] No. [id number] ANTIGEN ID (test code = 64) s Antigen Positive Performed at [facility] Laboratory Services - [address] Free: [phone] No. [id number] ANTIGEN ID (test code = 1688) e Antigen Positive Performed at [facility] Laboratory Services - [address] Free: [phone] No. [id number] [facility]ANT[facility] [id number] 08:32:43* Test Item Value Reference Range Interpretation Comme nts ANTIGEN ID (test code = 1687) C Antigen Positive Performed at [facility] Laboratory Services - [address] Free: [phone] No. [id number] ANTIGEN ID (test code = 62) c Antigen Positive Performed at [facility] Laboratory Services - [address] Free: [phone] No. [id number] ANTIGEN ID (test code = 63) E Antigen Positive Performed at [facility] Laboratory Services - [address] Free: [phone] No. [id number] ANTIGEN ID (test code = 64) K Antigen Negative Performed at [facility] Laboratory Services - [address] Free: [phone] No. [id number] ANTIGEN ID (test code = 1688) Jka Antigen Positive Performed at [facility] Laboratory Services - [address] Free: [phone] No. [id number] [facility] CenterANT[facility] [id number] 08:32:43* Test Item Value Reference Range Interpretation Comme nts ANTIGEN ID (test code = 1687) C Antigen Positive Performed at [facility] Laboratory Services - [address] Free: [phone] No. [id number] ANTIGEN ID (test code = 62) c Antigen Positive Performed at [facility] Laboratory Services - [address] Free: [phone] No. [id number] ANTIGEN ID (test code = 63) E Antigen Positive Performed at [facility] Laboratory Services - [address] Free: [phone] No. [id number] ANTIGEN ID (test code = 64) K Antigen Negative Performed at [facility] Laboratory Services - [address] Free: [phone] No. [id number] ANTIGEN ID (test code = 1688) Jka Antigen Positive Performed at [facility] Laboratory Services - [address] Free: [phone] No. [id number] [facility] WORKUP, BLOOD [id number] 07:33:05 * Test Item Value Reference Range Interpretation Comme nts ABO & RH (test code = 20) O POSITIVE Performed at [facility] Laboratory Services - [address] Free: [phone] No. [id number] IAT (test code = 1185) Positive Performed at [facility] Laboratory Services - [address] Free: [phone] No. [id number] [facility] WORKUP, BLOOD [id number] 07:33:05 * Test Item Value Reference Range Interpretation Comme nts ABO & RH (test code = 20) O POSITIVE Performed at [facility] Laboratory Services - [facility] Blood [place] [id number] Free: [phone] No. [id number] IAT (test code = 1185) Positive Performed at [facility] Laboratory Services - [facility] Blood [place] [id number] Free: [phone] No. [id number] [facility] [id number] 04:06:00* Test Item Value Reference Range Interpretation Comme nts GLUC 1 HR (test code = 6945239931) 116 mg/dL 120-170 L Lab Interpretation (test cod e = 86929-9) [facility]normal [facility] [id number] 04:06:00* Test Item Value Reference Range Interpretation Comme nts GLUC 1 HR (test code = 8470514841) 116 mg/dL 120-170 L Lab Interpretation (test cod e = 04848-9) [facility]normal [facility] WITH [id number] 03:24:00* Test Item Value Reference Range Interpretation Comme nts WBC (test code = 6690-2) See_Comment [Automated messa ge] The system which generated this result transmitted reference range: 4.30 - 11.10 10*3/?L. The reference range was not used to interpret this result as normal/abnormal. RBC (test code = 789-8) See_Comment H [Automated messa ge] The system which generated this result transmitted reference range: 3.93 - 5.25 10*6/?L. The reference range was not used to interpret this result as normal/abnormal. HGB (test code = 718-7) 15.1 g/dL 11.6-15 H HCT (test code = 4544-3) 46.9 % 35.7-45.2 H MCV (test code = 787-2) 84.8 fL 80.6-95.5 MCH (test code = 785-6) 27.3 pg 25.9-32.8 MCHC (test code = 786-4) 32.2 g/dL 31.6-35.1 RDW-SD (test code = 29326-1) 41.0 fL 39-49.9 RDW-CV (test code = 788-0) 13.2 % 12-15.5 PLT (test code = 777-3) See_Comment [Automated messa ge] The system which generated this result transmitted reference range: 166 - 358 10*3/?L. The reference range was not used to interpret this result as normal/abnormal. MPV (test code = 12083-9) 9.9 fL 9.5-12.9 NRBC/100 WBC (test code = 2055567756) See_Comment [Automated [employer] ssage] The system which generated this result transmitted reference range: 0.0 - 10.0 /100 WBCs. The reference range was not used to interpret this result as normal/abnormal. NRBC x10^3 (test code = 2357983977) <0.01 See_Comment [Automated Zw[employer] ge] The system which generated this result transmitted reference range: 10*3/?L. The reference range was not used to interpret this result as normal/abnormal. GRAN MAT (NEUT) % (test code = 770-8) 73.4 % IMM GRAN % (test code = 4948122403) 0.50 % LYMPH % (test code = 736-9) 18.3 % MONO % (test code = 5905-5) 6.2 % EOS % (test code = 713-8) 1.1 % BASO % (test code = 706-2) 0.5 % GRAN MAT x10^3(ANC) (test code = 2408033413) 6.12 10*3/uL 1.88-7.09 IMM GRAN x10^3 (test code = 7176450407) 0.04 10*3/uL 0-0.06 LYMPH x10^3 (test code = 731-0) 1.53 10*3/uL 1.32-3.29 MONO x10^3 (test code = 742-7) 0.52 10*3/uL 0.33-0.92 EOS x10^3 (test code = 711-2) 0.09 10*3/uL 0.03-0.39 BASO x10^3 (test code = 704-7) 0.04 10*3/uL 0.01-0.07 Lab Interpretation (test code = 49153-2) Abnormal [facility] WITH [id number] 03:24:00* Test Item Value Reference Range Interpretation Comme nts WBC (test code = 6690-2) See_Comment [Automated messa ge] The system which generated this result transmitted reference range: 4.30 - 11.10 10*3/?L. The reference range was not used to interpret this result as normal/abnormal. RBC (test code = 789-8) See_Comment H [Automated messa ge] The system which generated this result transmitted reference range: 3.93 - 5.25 10*6/?L. The reference range was not used to interpret this result as normal/abnormal. HGB (test code = 718-7) 15.1 g/dL 11.6-15 H HCT (test code = 4544-3) 46.9 % 35.7-45.2 H MCV (test code = 787-2) 84.8 fL 80.6-95.5 MCH (test code = 785-6) 27.3 pg 25.9-32.8 MCHC (test code = 786-4) 32.2 g/dL 31.6-35.1 RDW-SD (test code = 59211-2) 41.0 fL 39-49.9 RDW-CV (test code = 788-0) 13.2 % 12-15.5 PLT (test code = 777-3) See_Comment [Automated messa ge] The system which generated this result transmitted reference range: 166 - 358 10*3/?L. The reference range was not used to interpret this result as normal/abnormal. MPV (test code = 38921-4) 9.9 fL 9.5-12.9 NRBC/100 WBC (test code = 9053691358) See_Comment [Automated me ssage] The system which generated this result transmitted reference range: 0.0 - 10.0 /100 WBCs. The reference range was not used to interpret this result as normal/abnormal. NRBC x10^3 (test code = 3455515637) <0.01 See_Comment [Automated messa ge] The system which generated this result transmitted reference range: 10*3/?L. The reference range was not used to interpret this result as normal/abnormal. GRAN MAT (NEUT) % (test code = 770-8) 73.4 % IMM GRAN % (test code = 4445638562) 0.50 % LYMPH % (test code = 736-9) 18.3 % MONO % (test code = 5905-5) 6.2 % EOS % (test code = 713-8) 1.1 % BASO % (test code = 706-2) 0.5 % GRAN MAT x10^3(ANC) (test code = 1650814207) 6.12 10*3/uL 1.88-7.09 IMM GRAN x10^3 (test code = 4000891909) 0.04 10*3/uL 0-0.06 LYMPH x10^3 (test code = 731-0) 1.53 10*3/uL 1.32-3.29 MONO x10^3 (test code = 742-7) 0.52 10*3/uL 0.33-0.92 EOS x10^3 (test code = 711-2) 0.09 10*3/uL 0.03-0.39 BASO x10^3 (test code = 704-7) 0.04 10*3/uL 0.01-0.07 Lab Interpretation (test code = 07052-7) Abnormal [facility] [id number] 15:27:00* Test Item Value Reference Range Interpretation Comme nts POCT PREG (test code = 1605) Positive On board controls acceptable with C Line (test code = 3574) Yes POCT PREG LOT # (test code = 3575) POCT PREG TEST DATE ( test code = 3576) [facility] URINALYSIS W/O SPECIFIC [id number] 15:27:00* Test Item Value Reference Range Interpretation Comme nts POCT PH U (test code = 3254) 5 mg/dl 5-8 POCT U LEUK EST (test code = 3263) Neg Negative - Negative POCT U NIT (test code = 3262) Neg Negative - Negati ve POCT U PROT (test code = 3259) Trace Negative - Negat richar POCT U GLU (test code = 3256) Neg Negative - Negati ve POCT U KETONE (test code = 3258) None Negative - Neg ative POCT U BLD (test code = 3257) Neg Negative - Negati ve [facility] [id number] 15:27:00* Test Item Value Reference Range Interpretation Comme nts POCT PREG (test code = 1605) Positive On board controls acceptable with C Line (test code = 3574) Yes POCT PREG LOT # (test code = 3575) POCT PREG TEST DATE ( test code = 3576) [facility]/O SPECIFIC [id number] 15:27:00* Test Item Value Reference Range Interpretation Comme nts POCT PH U (test code = 3254) 5 mg/dl 5-8 POCT U LEUK EST (test code = 3263) Neg Negative - Negative POCT U NIT (test code = 3262) Neg Negative - Negati ve POCT U PROT (test code = 3259) Trace Negative - Negat richar POCT U GLU (test code = 3256) Neg Negative - Negati ve POCT U KETONE (test code = 3258) None Negative - Neg ative POCT U BLD (test code = 3257) Neg Negative - Negati ve [facility]"
--- NOTE | 2023-07-22 11:26 | RAD REPORT ---
EXAM DESCRIPTION: RAD - LTHAND2 - 07/22/2023 11:16 am CLINICAL HISTORY: left thumb COMPARISON: No comparisons TECHNIQUE: Left hand, 3 views. FINDINGS: No fracture is identified. There is no dislocation or periosteal reaction noted. Joint alignment is maintained. No foreign body or other soft tissue abnormality. IMPRESSION: Negative left hand examination.
--- NOTE | 2023-07-22 11:32 | ER ---
Nurse's Notes [facility] Name: Tyra Ribera Age: 32 yrs Sex: Female : 1990 Arrival Date: 07/22/2023 Time: 10:32 Bed 16 Private MD: Diagnosis: Left thumb laceration Presentation: 07/22 10:43 Chief complaint: Patient states: Accidentally cut L hand 1st digit last night at 9 PM ll1 with a knife. Bleeding controlled. Coronavirus screen: Client denies travel out of the [place] in the last 14 days. At this time, the client does not indicate any symptoms associated with coronavirus-19. Ebola Screen: Patient denies travel to an Ebola-affected area in the 21 days before illness onset. Initial Sepsis Screen: Does the patient meet any 2 criteria? No. Patient's initial sepsis screen is negative. Does the patient have a suspected source of infection? Yes: Skin breakdown/wound. Risk Assessment: Do you want to hurt yourself or someone else? Patient reports no desire to harm self or others. Onset of symptoms was July 21, 2023. 10:43 Method Of Arrival: Ambulatory ll1 10:43 Acuity: BREANNA 4 ll1 Historical: - Allergies: 10:36 Latex; ll1 10:36 PENICILLINS (Upset stomach); ll1 10:36 Latex; ll1 - PSHx: 10:36 section; Cholecystectomy; Gastric Bypass; ll1 - Immunization history:: Adult Immunizations up to date. - Social history:: Smoking status: Patient denies any tobacco usage or history of. Smoking status: Reported history of juuling and/or vaping. Screenin:47 [facility] ED Fall Risk Assessment (Adult) History of falling in the last 3 months, db including since admission No falls in past 3 months (0 pts) Confusion or Disorientation No (0 pts) Intoxicated or Sedated No (0 pts) Impaired Gait No (0 pts) Mobility Assist Device Used No (0 pt) Altered Elimination No (0 pt) Score/Fall Risk Level 0 - 2 = Low Risk Oriented to surroundings, Maintained a safe environment. Abuse screen: Denies threats or abuse. Denies injuries from another. Nutritional screening: No deficits noted. Tuberculosis screening: No symptoms or risk factors identified. Assessment: 11:54 Reassessment: Patient appears in no apparent distress at this time. Patient and/or db family updated on plan of care and expected duration. Pain level reassessed. Patient is alert, oriented x 3, equal unlabored respirations, skin warm/dry/pink. General: Appears in no apparent distress. comfortable, Behavior is calm, cooperative. Pain: Complains of pain in left hand. Neuro: Level of Consciousness is awake, alert, obeys commands, Oriented to person, place, time, situation, Speech is normal. Respiratory: Airway is patent Respiratory effort is even, unlabored, Respiratory pattern is regular, symmetrical. Vital Signs: 10:43 Resp 16; Temp 98.2; Weight 86.18 kg; Height 5 ft. 4 in. ; Pain 9/10; ll1 10:45 BP 126 / 89; Pulse 94; Resp 17; Temp 97.7; Pulse Ox 98% ; aw1 10:43 Body Mass Index 32.61 (86.18 kg, 162.56 cm) ll1 10:43 Pain Scale: Adult ll1 ED Course: 10:36 Patient arrived in ED. ll1 10:36 Arm band placed on Patient placed in an exam room, on a stretcher. ll1 10:37 Jas Washington MD is Attending Physician. sp3 10:44 Triage completed. ll1 11:18 Hand Left 2 View XRAY In Process Unspecified. EDID 11:38 Rosy Garrido, RN is Primary Nurse. db 11:47 Patient has correct armband on for positive identification. Bed in low position. Call db light in reach. Side rails up X 1. Provided Education on: DISCHARGE. Pulse ox on. NIBP on. Warm blanket given. 11:47 No provider procedures requiring assistance completed. Patient did not have IV access db during this emergency room visit. IV discontinued, intact. Administered Medications: No medications were administered Medication: 11:47 VIS not applicable for this client. db Outcome: 11:31 Discharge ordered by . sp3 11:47 Discharged to home ambulatory, db 11:47 Condition: stable 11:47 Discharge instructions given to patient, Instructed on discharge instructions, follow up and referral plans. Prescriptions given X 1, 11:56 Patient left the ED. db Signatures: Dispatcher [employer] EDID Mk Jenkins RN RN 1 Jas Washington MD MD sp3 Rosy Garrido, RN RN db Cheyenne Dunham aw1
--- NOTE | 2023-07-22 11:32 | EDPHYS ---
Physician Documentation [facility] Name: Tyra Ribera Age: 32 yrs Sex: Female : 1990 Arrival Date: 07/22/2023 Time: 10:32 Bed 16 Private MD: ED Physician Jas Washington HPI: 07/22 10:45 This 32 yrs old Female presents to ER via Ambulatory with complaints of knife into left sp3 thumb. 10:45 32-year-old female with no significant past medical history, status post gastric sp3 bypass, who presents to the ED with left thumb pain secondary to "a pocket knife that accidentally stabbed into the tip". Injury occurred approximately 14 hours ago. Patient states that she was "too scared to come to the ED" and just put Band-Aids around it and cleaned it with hydrogen peroxide and triple antibiotic. Today she comes into the ED wanting to "make sure there is nothing wrong". Pain is in the tip of the thumb but she still has full range of motion and no pain in the joint itself. No active bleeding reported. ROS is negative for other finger pain, palm or hand pain, wrist pain, elbow pain, or any other musculoskeletal region. ROS otherwise negative.. Historical: - Allergies: 10:36 Latex; ll1 10:36 PENICILLINS (Upset stomach); ll1 10:36 Latex; ll1 - PSHx: 10:36 section; Cholecystectomy; Gastric Bypass; ll1 - Immunization history:: Adult Immunizations up to date. - Social history:: Smoking status: Patient denies any tobacco usage or history of. Smoking status: Reported history of juuling and/or vaping. ROS: 10:47 Constitutional: Negative for fever, chills, and weight loss, Eyes: Negative for injury, sp3 pain, redness, and discharge, ENT: Negative for injury, pain, and discharge, Neck: Negative for injury, pain, and swelling, Cardiovascular: Negative for chest pain, palpitations, and edema, Respiratory: Negative for shortness of breath, cough, wheezing, and pleuritic chest pain, Abdomen/GI: Negative for abdominal pain, nausea, vomiting, diarrhea, and constipation, Back: Negative for injury and pain, Skin: Negative for injury, rash, and discoloration, Neuro: Negative for headache, weakness, numbness, tingling, and seizure, Psych: Negative for depression, anxiety, suicide ideation, homicidal ideation, and hallucinations, Allergy/Immunology: Negative for hives, rash, and allergies, Endocrine: Negative for neck swelling, polydipsia, polyuria, polyphagia, and marked weight changes, Hematologic/Lymphatic: Negative for swollen nodes, abnormal bleeding, and unusual bruising, 10:47 All other systems are negative, Exam: 10:47 Constitutional: This is a well developed, well nourished patient who is awake, alert, sp3 and in no acute distress. Head/Face: Normocephalic, atraumatic. Neck: Trachea midline, no thyromegaly or masses palpated, and no cervical lymphadenopathy. Supple, full range of motion without nuchal rigidity, or vertebral point tenderness. No Meningismus. Chest/axilla: Normal chest wall appearance and motion. Nontender with no deformity. No lesions are appreciated. Cardiovascular: Regular rate and rhythm with a normal S1 and S2. No gallops, murmurs, or rubs. Normal PMI, no JVD. No pulse deficits. Respiratory: Lungs have equal breath sounds bilaterally, clear to auscultation and percussion. No rales, rhonchi or wheezes noted. No increased work of breathing, no retractions or nasal flaring. Abdomen/GI: Soft, non-tender, with normal bowel sounds. No distension or tympany. No guarding or rebound. No evidence of tenderness throughout. Back: No spinal tenderness. No costovertebral tenderness. Full range of motion. Neuro: Awake and alert, GCS 15, oriented to person, place, time, and situation. Cranial nerves II-XII grossly intact. Motor strength 5/5 in all extremities. Sensory grossly intact. Cerebellar exam normal. Normal gait. 10:47 Musculoskeletal/extremity: 1 cm laceration noted well-approximated on the left pad of the thumb. No active bleeding noted. Mild pain to palpation. Range of motion on thumb is normal and cap refill on the nail is also normal.. Vital Signs: 10:43 Resp 16; Temp 98.2; Weight 86.18 kg; Height 5 ft. 4 in. ; Pain 9/10; ll1 10:45 BP 126 / 89; Pulse 94; Resp 17; Temp 97.7; Pulse Ox 98% ; aw1 10:43 Body Mass Index 32.61 (86.18 kg, 162.56 cm) ll1 10:43 Pain Scale: Adult ll1 MDM: 10:44 Patient medically screened. sp3 10:47 Data reviewed: vital signs, nurses notes, radiologic studies. sp3 10:48 ED course: 32-year-old female with laceration injury to the left thumb. Tetanus is sp3 up-to-date. No closure indicated. Will obtain x-ray to ensure no tuft fracture and place patient on Bactrim 3 days for potential infection and follow-up with PCP as needed.. 11:31 ED course: X-ray is negative. We will safely discharge patient home on p.o. Bactrim at sp3 this time.. 07/22 10:44 Order name: Hand Left 2 View XRAY; Complete Time: 11:31 sp3 Administered Medications: No medications were administered Disposition Summary: 07/22/23 11:31 Discharge Ordered Notes: Location: Home sp3 Condition: Stable sp3 Diagnosis - Left thumb laceration sp3 Followup: sp3 - With: Private Physician - When: Upon discharge from the Emergency Department - Reason: Continuance of care Discharge Instructions: - Discharge Summary Sheet sp3 - Laceration Care, Adult sp3 Forms: - Medication Reconciliation Form sp3 - Thank You Letter sp3 - Antibiotic Education sp3 - Prescription Opioid Use sp3 - Patient Portal Instructions sp3 - Leadership Thank You Letter sp3 Prescriptions: - Bactrim DS 800-160 mg Oral Tablet - take 1 tablet ORAL route every 12 hours for 3 days; 6 tablet; Refills: 0, sp3 Product Selection Permitted Signatures: Dispatcher [employer] EDMk Raza RN RN ll1 Jas Washington MD MD sp3
[2023-07-22 12:13] VITALS: BP 126/89; TEMP 97.7; O2SAT 98
== END ==
LOC: ER 10:32
DX: S61.012A Laceration without foreign body of left thumb without damage to nail, initial encounter (principal); Z88.0 Allergy status to penicillin; Z91.040 Latex allergy status

== ENCOUNTER 2023-12-26 23:16 | Emergency (ER) | payer OTHER ==
--- OUTSIDE RECORDS SUMMARY | 2023-12-26 23:22 | XMS REPORT | Continuity of Care Document ---
Author Name Unknown Address [address] [facility]. [address] th[address] Address 1200 [facility] 1 [address] [place] [address] Care Team Providers Care Network Communications Engineer Name Role Phone ADALI RIBERA Primary Care Physician CARLI Shabazz Attending Clinician CARLI Shabazz Attending Clinician Malihavai lable Mira, Huan Green Attending Clinician Unavailable MD MYLA Attending Clinician Unavailab CECIL Sanchez Attending Clinician Unavailab le Doctor Unassigned, Kirvin Attending Clinician U navailable ENG Attending Clinician Unavailable ADALI RIBERA Attending Clinician Unavailab le [email or web address] Attending Clinician Unavaila ble LAB90 Attending Clinician Unavailable Ektoñito Obonoruma Amy Attending Clinician Unavail able Philly Montemayor Attending Clinician Un available LINDY GODWIN Attending Clinician Unavail able Lindy Moy Attending Clinician + Visit, JaneyRmp Nurse Attending Clinician Unava ilannmarie Maki MD, Georges Attending Clinician + Ultrasound, Rosie Attending Clinician Unavaila ble Sheng MD, Allen F Attending Clinician [phone] CHRISTINA THOMPSON Attending Clinician Unavailable Faculty, Huan Romero [facility] Attending Clinician Kwame Mace MD, Mike Lobo Attending Clinician [phone] Risk, Qim-Zcaoh-Yb/High Attending Clinician Unatova Grajeda [facility] BENITES Attending Clinician Rehana Hinds Attending Clinician [phone] Randolph Szymanski Attending Clinician [phone] CHRISTINA THOMPSON Admitting Clinician Unavailable CARLI GABRIEL Admitting Clinician Miranda gonzales [email or web address]_S Admitting Clinician UnavailEnrike Szymanski I Admitting Clinician Unavail able Rachel Maki MD, Destini Admitting Clinician + Payers Payer Name Policy Type Policy Number Effective Date Expirati on Date Source [employer] MEDICAID [id number] 2019 00:00:00 [facility] [id number] 2020 00:00:00 [facility] [id number] 2023 00:00:00 [facility] 3 [id number] 2023 00:00:00 [employer]BS 2 [id number] 2023 00:00:00 Problems Condition Name Condition Details Condition Category Status Onset Date Resolution Date Last Treatment Date Treating Clinician Comments Source Sinus infection Sinus infection Disease Active 2020-0 9-25 00:00: 00 [facility] Breakthrou gh bleeding on Nexplanon Breakthrou gh bleeding on Nexplanon Disease Active 2020-0 8-13 00:00: 00 [facility] Nexplanon insertion Nexplanon insertion Disease Active 2020-0 7-30 00:00: 00 [facility] Nexplanon removal Nexplanon removal Disease Active 2020-0 7-30 00:00: 00 [facility] Other general counseling and advice for contracept richar management Other general counseling and advice for contracept richar management Disease Active 2020-0 7-23 00:00: 00 [facility] care and examinatio n of lactating mother care and examinatio n of lactating mother Disease Active 4 00:00: 00 [facility] Morbid obesity with body mass index of 50 or higher Morbid obesity with body mass index of 50 or higher Disease Active 3- 00:00: 00 [facility] 37 weeks gestation of 37 weeks gestation of Disease Active 3 00:00: 00 [facility] Gestationa l hypertensi on, antepartum Gestationa l hypertensi on, antepartum Disease Active 3 00:00: 00 [facility] Morbid obesity with BMI of 45.0-49.9, adult Morbid obesity with BMI of 45.0-49.9, adult Disease Active 3 00:00: 00 [facility] URI (upper respirator y infection) URI (upper respirator y infection) Disease Active 2018-07 00:00: 00 [facility] Generalize d body aches Generalize d body aches Disease Active 2018-07 00:00: 00 [facility] Influenza B Influenza B Disease Active 2018-07 00:00: 00 [facility] Screening, , isoimmuniz ation Screening, , isoimmuniz ation Disease Active 2018-07 0 00:00: 00 [facility] BMI 50.0-59.9, adult BMI 50.0-59.9, adult Disease Active 2018-07 007 00:00: 00 [facility] Supervisio n of high-risk Supervisio n of high-risk Disease Active 01-26 00:00: 00 [facility] Multiparit y Multiparit y Disease Active 01-26 00:00: 00 [facility] History of section History of section Disease Active 01-26 00:00: 00 Overview: X2 pending ROR [facility] Obesity in Obesity in Disease Active 2019-0 7-17 00:00: 00 [facility] Tobacco use during Tobacco use during Disease Active 717 00:00: 00 [facility] Tobacco use Tobacco use Disease Active 01-26 00:00: 00 [facility] Tobacco use Tobacco use Disease Active 01-26 00:00: 00 [facility] Allergies, Adverse Reactions, Alerts Allergy Name Allergy Type Status Severity Reaction(s) Onset Date Inactive Date Treating Clinician Comments Source LATEX DRUG INGREDI Active Other-Cmnt 2 00:00: 00 [facility] NSAIDS (NON-RANJIT ROIDAL ANTI-INF LAMMATOR Y DRUG) Drug Class Active Other-Cmnt 2 00:00: 00 [facility] Latex Propensi ty to adverse reaction s Active Other - See comments 2- 00:00: 00 [facility] Nsaids (Non-Ranjit roidal Anti-Inf lammator y Drug) Propensi ty to adverse reaction s Active Other - See comments 2 00:00: 00 [facility] Latex Propensi ty to adverse reaction s Active Contact Dermatitis 1-29 00:00: 00 burning Christine Seybold - Externa l Nonstero idal anti-inf lammator y drug [Other] Propensi ty to adverse reaction s Active 2022-07 0- 00:00: 00 Hx of bariatric surgery and cannot take this. Christine Seybold - Externa l Penicill ins Propensi ty to adverse reaction s Active 2022-07 0-09 00:00: 00 Christine Seybold - Externa l Penicill ins DA Active U 8-11 00:00: 00 [facility] latex DA Active U 8-11 00:00: 00 [facility] Penicill ins DA Active U VOMITING 8-11 00:00: 00 [facility] latex DA Active U SWELLING 8-11 00:00: 00 [facility] Penicill in Propensi ty to adverse reaction s Active Nausea and/or Vomiting 01-26 00:00: 00 [facility] Penicill in Propensi ty to adverse reaction s Active Nausea and/or Vomiting 01-26 00:00: 00 [facility] PENICILL IN DRUG INGREDI Active N/V 01-26 00:00: 00 [facility] Social History Social Habit Start Date Stop Date Quantity Comments Source ASSERTION 2019-01-13 00:00:00 [facility] History of tobacco use 2007-01-26 00:00:00 Cigarette Smoker [facility] History SDOH Alcohol Binge [facility] Exposure to SARS-CoV-2 (event) Not sure [facility] Alcohol Std Drinks [facility] Tobacco use and exposure 2023-12-08 00:00:00 2023-12-08 00:00:00 Smokeless tobacco non-user [facility] Cigarettes smoked current (pack per day) - Reported 2023-12-08 00:00:00 2023-12-08 00:00:00 [facility] Cigarette pack-years 2023-12-08 00:00:00 2023-12-08 00:00:00 [facility] Alcoholic beverage intake 2023-12-08 00:00:00 2023-12-08 00:00:00 Ex-drinker (finding) [facility] Tobacco Comment 2023-09-08 00:00:00 2023-09-08 00:00:00 1 pack a day [facility] Alcohol intake 2023-09-08 00:00:00 2023-09-08 00:00:00 Ex-drinker (finding) [facility] History of Social function 2019-11-15 00:00:00 2019-11-15 00:00:00 [facility] History SDOH Alcohol Frequency 2019-01-26 00:00:00 2019-01-26 00:00:00 1 [facility] Sex Assigned At 1990 00:00:00 1990 00:00:00 Christine Jacobson - External Smoking Status Start Date Stop Date Source Smokes tobacco daily 2023-12-08 00:00:00 [facility] Medications Ordered Medication Name Filled Medication Name Start Date Stop Date Current Medication? Ordering Clinician Indication Dosage Frequency Signature (SIG) Comments Components Source Tizanidine HCl 4 MG oral Tablet 2022-07 018 00:00: 00 Yes [id number] 4mg Q.25D Take 1 tablet (4 mg total) by mouth every 6 hours as needed for muscle spasms. Christine tyler Gabapentin 100 MG oral Capsule 2022-07 00:00: 00 Yes [id number] 100mg Take 1 capsule (100 mg total) by mouth 3 times daily. Christine tyler Meclizine HCl 25 MG oral Tablet 2022-07 00:00: 00 Yes [id number] 25mg [id number] 3D Take 1 tablet (25 mg total) by mouth 3 times daily as needed. Christine tyler Pregabalin 50 MG oral Capsule 03-02 00:00: 00 04-20 00:00 :00 No Christine tyler Phentermine HCl 37.5 MG oral Tablet 02-24 00:00: 00 04-20 00:00 :00 No Christine tyler levonorgest rel-ethinyl estradiol (SRONYX) 0.1-20 mg-mcg per tablet 08-09 00:00: 00 09-08 00:00 :00 No [id number] 1{tbl} Take 1 tablet by mouth daily. [facility] azithromyci n (ZITHROMAX Z-THA) 250 mg tablet 9- 00:00: 00 09-08 00:00 :00 No [id number] 250mg Take 1 tablet by mouth daily. Take 500 mg day 1, then 250 mg days 2 to 5. [facility] estradiol 2 mg tablet 8-13 00:00: 00 03-16 04:59 :00 No [id number] 2mg Take 1 tablet by mouth daily for 21 days. [facility] etonogestre l (NEXPLANON) implant 68 mg 02-08 15:30: 00 02-08 14:28 :00 No 68mg [facility] medroxyPROG ESTERone (DEPO-PROVE RA) injection 150 mg 5-05 15:30: 00 09-08 16:16 :56 No [id number] 150mg [facility] benzocaine- menthol (CEPACOL SORE THROAT (DEANNA-MEN)) lozenge 1 Lozenge 09-21 17:42: 16 Yes 1{lozen ge} 1 Lozenge, Oral, Q4HPRN, Starting Denisse 09/22/19 at 1242, Until Discontinu ed, Routine, Sore throat [facility] vitamin w/FA tablet 09-21 00:00: 00 Yes [id number] 1{tbl} Take 1 tablet by mouth daily. May substitute for what is in stock and covered by patient plan [facility] docusate calcium 240 mg capsule 09-21 00:0009-08 00:00 :00 No [id number] 240mg Take 1 capsule by mouth once daily as needed for Constipati on. May substitute for what is in stock and covered by patient plan [facility] ferrous sulfate 325 mg (65 mg iron) tablet 09-21 00:00: 00 09-08 00:00 :00 No [id number] 325mg Take 1 tablet by mouth 2 (two) times daily. May substitute for what is in stock and covered by patient plan [facility] ibuprofen 600 mg tablet 09-21 00:00: 00 09-08 00:00 :00 No [id number] 600mg Take 1 tablet by mouth every 6 (six) hours as needed (Pain). Take with food or milk. [facility] vitamin w/FA tablet 09-21 00:00: 00 09-08 00:00 :00 No [id number] 1{tbl} Take 1 tablet by mouth daily. May substitute for what is in stock and covered by patient plan [facility] HYDROcodone -acetaminop hen 5-325 mg tablet 09-21 00:00: 00 09-29 04:59 :00 No [id number] 1{tbl} Take 1 tablet by mouth every 6 (six) hours as needed (Pain scale > 4) for up to 7 days. Do not exceed 3 grams of acetaminop hen in 24 hours. [facility] rho(D) immune globulin (RHOGAM) syringe 300 mcg 09-20 02:59: 46 Yes 300ug 300 mcg, Intramuscu lar, ONCE, For 1 dose, Conditiona l, Routine [facility] human papillomav vac,9-aide(P F) (GARDASIL-9 ) syringe 0.5 mL 09-20 02:59: 41 Yes .5mL 0.5 mL, Intramuscu lar, ONCE-PRIOR TO DISCHARGE, 1 dose, Starting Thu09/20/19 at 2158, Until Discontinu ed, Routine, Give vaccine prior to discharge [facility] HYDROcodone -acetaminop hen (NORCO 5) 5-325 mg tablet 2 tablet 09-20 02:59: 41 Yes 2{tbl} 2 tablet, Oral, Q6HPRN, Starting Thu09/20/19 at 2158, Until Discontinu ed, Routine, Pain (scale 7-10), If uncontroll ed by Ibuprofen [facility] HYDROcodone -acetaminop hen (NORCO 5) 5-325 mg tablet 1 tablet 09-20 02:59: 41 Yes 1{tbl} 1 tablet, Oral, Q6HPRN, Starting Thu09/20/19 at 2158, Until Discontinu ed, Routine, Pain (scale 4-6), If uncontroll ed by Ibuprofen [facility] ibuprofen (IBU) tablet 600 mg 09-20 02:59: 41 Yes 600mg 600 mg, Oral, Q6HPRN, Starting Thu09/20/19 at 2158, Until Discontinu ed, Routine, Pain (scale 1-3) [facility] ondansetron (ZOFRAN (PF)) injection 4 mg 09-20 02:59: 41 Yes 4mg 4 mg, Slow IV Push, Q8HPRN, Starting Thu09/20/19 at 2158, Until Discontinu ed, Routine, Nausea and Vomiting (N/V) [facility] simethicone (GAS RELIEF (SIMETHICON E)) chewable tablet 160 mg 09-20 02:59: 41 Yes 160mg 160 mg, Oral, PC+HSPRN, Starting Thu09/20/19 at 2158, Until Discontinu ed, Routine, Gas [facility] magnesium hydroxide (MILK OF MAGNESIA) 400 mg/5 mL suspension 30 mL 09-20 02:59: 41 Yes 30mL 30 mL, Oral, QDAILYPRN, Starting Thu09/20/19 at 2158, Until Discontinu ed, Routine, Constipati on [facility] diphenhydrA MINE-0.9 % sod.chlr (BENADRYL) 25 mg/50 mL piggyback 25 mg 09-20 02:59: 40 Yes 25mg 25 mg, IV Piggyback, Administer over 30 Minutes, Q6HPRN, 1 dose, Starting Thu09/20/19 at 2158, Until Discontinu ed, Routine, Itching [facility] diphenhydrA MINE (BENADRYL) tablet 25 mg 09-20 02:59: 40 Yes 25mg 25 mg, Oral, Q6HPRN, Starting Thu09/20/19 at 2158, Until Discontinu ed, Routine, Sleep, Itching [facility] bisacodyL (DULCOLAX) suppository 10 mg 09-20 02:59: 40 Yes 10mg 10 mg, Rectal, QDAILYPRN, Starting Thu09/20/19 at 2158, Until Discontinu ed, Routine, Constipati on [facility] docusate calcium (SURFAK) capsule 240 mg 09-20 02:59: 40 Yes 240mg 240 mg, Oral, QDAILYPRN, Starting Thu09/20/19 at 2158, Until Discontinu ed, Routine, Constipati on [facility] naloxone (NARCAN) injection 0.4 mg 09-20 01:12: 35 09-22 01:11 :35 No .4mg 0.4 mg, Slow IV Push, PRN - SEE INSTRUCTIO NS, Starting 09/20/19 at 2011, Until Denisse 09/22/19 at 2010, Routine, Analgesia Recovery, PACU [facility] ketorolac (TORADOL) injection 30 mg 09-20 01:12: 35 09-20 01:45 :00 No 30mg 30 mg, Slow IV Push, PRN, 1 dose, Starting 09/20/19 at 2011, Until 09/20/19 at 2044, Routine, Pain (scale 7-10), PACU
Fa culty member approving Restricted medication : JOSÉ MIGUEL LEE [facility] Investigati onal Drug- tranexamic acid 1 gram or placebo in NS 50 mL 09-19 21:45: 00 09-20 02:59 :47 No 1g 1 g, IV Infusion, ONCE, 1 dose, 09/20/19 at 1645
Pr incipal investigat or: ERLINDA VALENZUELA [facility] metoclopram emile HCl (REGLAN) 10 mg in NaCl 0.9% (NS) piggyback 09-19 17:30: 00 09-19 17:54 :00 No 10mg 10 mg, IV Piggyback, ONCE, 1 dose, 09/20/19 at 1230, 50 mL [facility] famotidine (PEPCID (PF)) injection 20 mg 09-19 17:30: 00 09-19 18:26 :00 No 20mg 20 mg, IV Piggyback, ONCE, 1 dose, 09/20/19 at 1230, Routine [facility] gentamicin 40 mg/mL 480 mg in NaCl 0.9% (NS) 250 mL IV infusion 09-19 16:26: 09 09-19 22:43 :00 No 5mg/kg 480 mg (rounded from 470 mg = 5 mg/kg ?94 kg Adjusted weight), IV Infusion, O.R. HOLDING ONCE, 1 dose, Starting 09/20/19 at 1126, Until Discontinu ed, 250 mL
Reas on for Anti-Infec tive: Surgical Prophylaxi s
Surgi daisy Prophylaxi s: HOSE FINISHER
Duration of therapy: within 24 hours of surgery [facility] lactated ringers IV infusion 1,000 mL 09-19 16:00: 00 09-20 02:59 :47 No 1000mL at 125 mL/hr, 1,000 mL, IV Infusion, CONTINUOUS , Starting 09/20/19 at 1100, Until 09/20/19 at 2159, Routine [facility] acetaminoph en (TYLENOL) tablet 650 mg 09-19 16:00: 00 09-19 21:41 :00 No 650mg 650 mg, Oral, ONCE, 1 dose, 09/20/19 at 1100, Routine [facility] sodium citrate-cit shana acid (BICITRA) 500-334 mg/5 mL solution 30 mL 09-19 15:53: 42 09-19 22:23 :00 No 30mL 30 mL, Oral, PRE-PROCED URE ONCE, 1 dose, Starting 09/20/19 at 1053, Until Denisse 09/22/19 at 2359, Routine, Surgery/Pr ocedure [facility] guaiFENesin 100 mg/5 mL solution 2018-07 2 00:00: 00 09-21 00:00 :00 No [id number] 100mg Take 5 mL by mouth every 4 (four) hours. [facility] guaifenesin (ROBITUSSIN CHEST CONGESTION ORAL) 17 15:31: 10 Yes Take by mouth. [facility] Immunizations Ordered Immunization Name Filled Immunization Name Date Status Comments Source TDAP (ADACEL) VACCINE 2019-07-21 00:00:00 Completed [facility] TDAP (ADACEL) VACCINE 2019-07-21 00:00:00 Completed [facility] TDAP (ADACEL) VACCINE 2019-07-21 00:00:00 Completed [facility] TDAP (ADACEL) VACCINE 2019-07-21 00:00:00 Completed [facility] TDAP (ADACEL) VACCINE 2019-07-21 00:00:00 Completed [facility] TDAP (ADACEL) VACCINE 2019-07-21 00:00:00 Completed [facility] TDAP (ADACEL) VACCINE 2019-07-21 00:00:00 Completed [facility] TDAP (ADACEL) VACCINE 2019-07-21 00:00:00 Completed [facility] TDAP (ADACEL) VACCINE 2019-07-21 00:00:00 Completed [facility] TDAP (ADACEL) VACCINE 2019-07-21 00:00:00 Completed [facility] TDAP (ADACEL) VACCINE 2019-07-21 00:00:00 Completed [facility] TDAP (ADACEL) VACCINE 2019-07-21 00:00:00 Completed [facility] TDAP (ADACEL) VACCINE 2019-07-21 00:00:00 Completed [facility] TDAP (ADACEL) VACCINE 2019-07-21 00:00:00 Completed [facility] TDAP (ADACEL) VACCINE 2019-07-21 00:00:00 Completed [facility] TDAP (ADACEL) VACCINE 2019-07-21 00:00:00 Completed [facility] TDAP (ADACEL) VACCINE 2019-07-21 00:00:00 Completed [facility] TDAP (ADACEL) VACCINE 2019-07-21 00:00:00 Completed [facility] TDAP (ADACEL) VACCINE 2019-07-21 00:00:00 Completed [facility] TDAP (ADACEL) VACCINE 2019-07-21 00:00:00 Completed [facility] TDAP (ADACEL) VACCINE 2019-07-21 00:00:00 Completed [facility] TDAP (ADACEL) VACCINE 2019-07-21 00:00:00 Completed [facility] TDAP (ADACEL) VACCINE 2019-07-21 00:00:00 Completed [facility] TDAP (ADACEL) VACCINE 2019-07-21 00:00:00 Completed [facility] TDAP (ADACEL) VACCINE 2019-07-21 00:00:00 Completed [facility] TDAP (ADACEL) VACCINE 2019-07-21 00:00:00 Completed [facility] TDAP (ADACEL) VACCINE 2019-07-21 00:00:00 Completed [facility] TDAP (ADACEL) VACCINE 2019-07-21 00:00:00 Completed [facility] TDAP (ADACEL) VACCINE 2019-07-21 00:00:00 Completed [facility] TDAP (ADACEL) VACCINE 2019-07-21 00:00:00 Completed [facility] TDAP (ADACEL) VACCINE 2019-07-21 00:00:00 Completed [facility] TDAP (ADACEL) VACCINE 2019-07-21 00:00:00 Completed [facility] TDAP (ADACEL) VACCINE 2019-07-21 00:00:00 Completed [facility] TDAP (ADACEL) VACCINE 2019-07-21 00:00:00 Completed [facility] TDAP (ADACEL) VACCINE 2019-07-21 00:00:00 Completed [facility] TDAP (ADACEL) VACCINE 2019-07-21 00:00:00 Completed [facility] TDAP (ADACEL) VACCINE 2019-07-21 00:00:00 Completed [facility] TDAP (ADACEL) VACCINE Unknown Completed [facility] TDAP (ADACEL) VACCINE Unknown Completed [facility] TDAP (ADACEL) VACCINE Unknown Completed [facility] TDAP (ADACEL) VACCINE Unknown Completed [facility] TDAP (ADACEL) VACCINE Unknown Completed [facility] TDAP (ADACEL) VACCINE Unknown Completed [facility] TDAP (ADACEL) VACCINE Unknown Completed [facility] TDAP (ADACEL) VACCINE Unknown Completed [facility] TDAP (ADACEL) VACCINE Unknown Completed [facility] Vital Signs Vital Name Observation Time Observation Value Comments S ource Systolic blood pressure 2023-12-08 14:49:00 102 mm[Hg] Addison o [facility] Diastolic blood pressure 2023-12-08 14:49:00 76 mm[Hg] Addison o [facility] Heart rate 2023-12-08 14:49:00 76 /min [facility] Body temperature 2023-12-08 14:49:00 36.72 Qian [facility] Respiratory rate 2023-12-08 14:49:00 18 /min [facility] Body height 2023-12-08 14:49:00 162.6 cm [facility] Body weight 2023-12-08 14:49:00 92.715 kg [facility] BMI 2023-12-08 14:49:00 35.09 kg/m2 [facility] Systolic blood pressure 2023-09-08 15:37:00 105 mm[Hg] [facility] Diastolic blood pressure 2023-09-08 15:37:00 65 mm[Hg] [facility] Heart rate 2023-09-08 15:37:00 73 /min [facility] Body temperature 2023-09-08 15:37:00 36.94 Qian [facility] Respiratory rate 2023-09-08 15:37:00 16 /min [facility] Body height 2023-09-08 15:37:00 162.6 cm [facility] Body weight 2023-09-08 15:37:00 91.627 kg [facility] BMI 2023-09-08 15:37:00 34.67 kg/m2 [facility] Oxygen saturation in Arterial blood by Pulse oximetry 2023-09-08 15:37:00 98 /min [facility] Systolic blood pressure 2023-04-20 21:09:00 118 mm[Hg] Christine Raeybo ld - External Diastolic blood pressure 2023-04-20 21:09:00 74 mm[Hg] Christine ybo ld - External Heart rate 2023-04-20 21:09:00 88 /min Kelse y Seybold - External Body temperature 2023-04-20 21:09:00 36.78 Qian Christine Seybold - External Respiratory rate 2023-04-20 21:09:00 18 /min Christine Seybold - External Body height 2023-04-20 21:09:00 160 cm Neetu ey Seybold - External Body weight 2023-04-20 21:09:00 89.018 kg Neetu ey Seybold - External BMI 2023-04-20 21:09:00 34.76 kg/m2 Neetu ey Seybold - External Oxygen saturation in Arterial blood by Pulse oximetry 2023-04-20 21:09:00 98 /min Christine Niravcatie ld - External Systolic blood pressure 2020-08-09 15:08:00 127 mm[Hg] [facility] Diastolic blood pressure 2020-08-09 15:08:00 80 mm[Hg] [facility] Heart rate 2020-08-09 15:08:00 112 /min [facility] Body temperature 2020-08-09 15:08:00 36.33 Qian [facility] Respiratory rate 2020-08-09 15:08:00 16 /min [facility] Body height 2020-08-09 15:08:00 164.6 cm [facility] Body weight 2020-08-09 15:08:00 129.956 kg [facility] BMI 2020-08-09 15:08:00 47.97 kg/m2 [facility] Systolic blood pressure 2020-08-09 15:08:00 127 mm[Hg] [facility] Diastolic blood pressure 2020-08-09 15:08:00 80 mm[Hg] [facility] Heart rate 2020-08-09 15:08:00 112 /min [facility] Body temperature 2020-08-09 15:08:00 36.33 Qian [facility] Respiratory rate 2020-08-09 15:08:00 16 /min [facility] Body height 2020-08-09 15:08:00 164.6 cm [facility] Body weight 2020-08-09 15:08:00 129.956 kg [facility] BMI 2020-08-09 15:08:00 47.97 kg/m2 [facility] Systolic blood pressure 2020-04-06 13:20:00 115 mm[Hg] [facility] Diastolic blood pressure 2020-04-06 13:20:00 75 mm[Hg] [facility] Heart rate 2020-04-06 13:20:00 71 /min [facility] Body temperature 2020-04-06 13:20:00 36.78 Qian [facility] Respiratory rate 2020-04-06 13:20:00 16 /min [facility] Body height 2020-04-06 13:20:00 162.6 cm [facility] Body weight 2020-04-06 13:20:00 127.325 kg [facility] BMI 2020-04-06 13:20:00 48.18 kg/m2 [facility] pressure 2020-02-23 13:24:00 122 mm[Hg] [facility] Diastolic blood pressure 2020-02-23 13:24:00 71 mm[Hg] [facility] Heart rate 2020-02-23 13:24:00 64 /min [facility] Body temperature 2020-02-23 13:24:00 36.61 Qian [facility] Respiratory rate 2020-02-23 13:24:00 16 /min [facility] Body height 2020-02-23 13:24:00 162.6 cm [facility] Body weight 2020-02-23 13:24:00 127.574 kg [facility] BMI 2020-02-23 13:24:00 48.28 kg/m2 [facility] Systolic blood pressure 2020-02-09 13:45:00 106 mm[Hg] [facility] Diastolic blood pressure 2020-02-09 13:45:00 75 mm[Hg] [facility] Heart rate 2020-02-09 13:45:00 83 /min [facility] Body temperature 2020-02-09 13:45:00 36.44 Qian [facility] Respiratory rate 2020-02-09 13:45:00 16 /min [facility] Body height 2020-02-09 13:45:00 162.6 cm [facility] Body weight 2020-02-09 13:45:00 129.36 kg [facility] BMI 2020-02-09 13:45:00 48.95 kg/m2 [facility] Systolic blood pressure 2020-02-02 14:20:00 132 mm[Hg] [facility] Diastolic blood pressure 2020-02-02 14:20:00 82 mm[Hg] [facility] Heart rate 2020-02-02 14:20:00 72 /min [facility] Body temperature 2020-02-02 14:20:00 36.67 Qian [facility] Respiratory rate 2020-02-02 14:20:00 16 /min [facility] Body height 2020-02-02 14:20:00 162.6 cm [facility] Body weight 2020-02-02 14:20:00 131.118 kg [facility] BMI 2020-02-02 14:20:00 49.62 kg/m2 [facility] Systolic blood pressure 2019-11-15 14:00:00 116 mm[Hg] [facility] Diastolic blood pressure 2019-11-15 14:00:00 75 mm[Hg] [facility] Heart rate 2019-11-15 14:00:00 76 /min [facility] Body temperature 2019-11-15 14:00:00 36.89 Qian [facility] Respiratory rate 2019-11-15 14:00:00 16 /min [facility] Body height 2019-11-15 14:00:00 162.6 cm [facility] Body weight 2019-11-15 14:00:00 135.739 kg [facility] BMI 2019-11-15 14:00:00 51.37 kg/m2 [facility] Systolic blood pressure 2019-09-27 16:12:00 121 mm[Hg] [facility] Diastolic blood pressure 2019-09-27 16:12:00 83 mm[Hg] [facility] Heart rate 2019-09-27 16:12:00 86 /min [facility] Body temperature 2019-09-27 16:12:00 36.44 Qian [facility] Respiratory rate 2019-09-27 16:12:00 16 /min [facility] Body height 2019-09-27 16:12:00 162.6 cm [facility] Body weight 2019-09-27 16:12:00 144.896 kg [facility] BMI 2019-09-27 16:12:00 54.83 kg/m2 [facility] Systolic blood pressure 2019-09-22 19:44:00 117 mm[Hg] [facility] Diastolic blood pressure 2019-09-22 19:44:00 75 mm[Hg] [facility] Heart rate 2019-09-22 19:44:00 95 /min [facility] Body temperature 2019-09-22 19:44:00 36.78 Qian [facility] Respiratory rate 2019-09-22 19:44:00 18 /min [facility] Oxygen saturation in Arterial blood by Pulse oximetry 2019-09-22 19:44:00 98 /min [facility] Body height 2019-09-20 15:41:00 162.6 cm [facility] Body weight 2019-09-20 15:41:00 152.862 kg [facility] BMI 2019-09-20 15:41:00 57.85 kg/m2 [facility] Systolic blood pressure 2019-09-14 14:16:00 134 mm[Hg] [facility] Diastolic blood pressure 2019-09-14 14:16:00 89 mm[Hg] [facility] Heart rate 2019-09-14 14:16:00 87 /min [facility] Body temperature 2019-09-14 14:16:00 36.56 [facility] Respiratory rate 2019-09-14 14:16:00 16 /min [facility] Body height 2019-09-14 14:16:00 162.6 cm [facility] Body weight 2019-09-14 14:16:00 149.29 kg [facility] BMI 2019-09-14 14:16:00 56.49 kg/m2 [facility] Systolic blood pressure 2019-09-08 15:34:00 131 mm[Hg] [facility] Diastolic blood pressure 2019-09-08 15:34:00 83 mm[Hg] [facility] Heart rate 2019-09-08 15:34:00 85 /min [facility] Body temperature 2019-09-08 15:34:00 36.11 [facility] Respiratory rate 2019-09-08 15:34:00 16 /min [facility] Body height 2019-09-08 15:34:00 162.6 cm [facility] Body weight 2019-09-08 15:34:00 149.007 kg [facility] BMI 2019-09-08 15:34:00 56.39 kg/m2 [facility] Systolic blood pressure 2019-09-01 14:31:00 92 mm[Hg] [facility] Diastolic blood pressure 2019-09-01 14:31:00 64 mm[Hg] [facility] Heart rate 2019-09-01 14:25:00 81 /min [facility] Body temperature 2019-09-01 14:25:00 36.22 Qian [facility] Respiratory rate 2019-09-01 14:25:00 16 /min [facility] Body height 2019-09-01 14:25:00 162.6 cm [facility] Body weight 2019-09-01 14:25:00 147.589 kg [facility] BMI 2019-09-01 14:25:00 55.85 kg/m2 [facility] Systolic blood pressure 2019-08-17 17:31:00 118 mm[Hg] [facility] Diastolic blood pressure 2019-08-17 17:31:00 74 mm[Hg] [facility] Heart rate 2019-08-17 17:20:00 120 /min [facility] Body temperature 2019-08-17 17:20:00 36.67 Qian [facility] Respiratory rate 2019-08-17 17:20:00 16 /min [facility] Body height 2019-08-17 17:20:00 162.6 cm [facility] Body weight 2019-08-17 17:20:00 147.476 kg [facility] BMI 2019-08-17 17:20:00 55.81 kg/m2 [facility] Systolic blood pressure 2019-08-04 15:33:00 137 mm[Hg] [facility] Diastolic blood pressure 2019-08-04 15:33:00 90 mm[Hg] [facility] Heart rate 2019-08-04 15:33:00 92 /min [facility] Body temperature 2019-08-04 15:33:00 36.83 Qian [facility] Respiratory rate 2019-08-04 15:33:00 16 /min [facility] Body height 2019-08-04 15:33:00 162.6 cm [facility] Body weight 2019-08-04 15:33:00 144.697 kg [facility] BMI 2019-08-04 15:33:00 54.76 kg/m2 [facility] Systolic blood pressure 2019-03-21 14:31:00 130 mm[Hg] [facility] Diastolic blood pressure 2019-03-21 14:31:00 80 mm[Hg] [facility] Heart rate 2019-03-21 14:31:00 89 /min [facility] Body temperature 2019-03-21 14:31:00 36.39 Qian [facility] Respiratory rate 2019-03-21 14:31:00 16 /min [facility] Body weight 2019-03-21 14:31:00 138.064 kg [facility] BMI 2019-03-21 14:31:00 52.25 kg/m2 [facility] Systolic blood pressure 2019-02-24 15:04:00 128 mm[Hg] [facility] Diastolic blood pressure 2019-02-24 15:04:00 80 mm[Hg] [facility] Heart rate 2019-02-24 15:04:00 75 /min [facility] Body temperature 2019-02-24 15:04:00 36.61 Qian [facility] Respiratory rate 2019-02-24 15:04:00 18 /min [facility] Body height 2019-02-24 15:04:00 162.6 cm [facility] Body weight 2019-02-24 15:04:00 138.517 kg [facility] BMI 2019-02-24 15:04:00 52.42 kg/m2 [facility] Systolic blood pressure 2019-01-26 15:20:00 114 mm[Hg] [facility] Diastolic blood pressure 2019-01-26 15:20:00 62 mm[Hg] [facility] Heart rate 2019-01-26 15:15:00 117 /min [facility] Body temperature 2019-01-26 15:15:00 36.94 Qian [facility] Respiratory rate 2019-01-26 15:15:00 16 /min [facility] Body height 2019-01-26 15:15:00 162.6 cm [facility] Body weight 2019-01-26 15:15:00 136.589 kg [facility] BMI 2019-01-26 15:15:00 51.69 kg/m2 [facility] Procedures Procedure Date / Time Performed Performing Clinician Source ASSIGNMENT OF BENEFITS 2023-09-08 15:18:21 Docto r Unassigned, Kirvin [facility] [id number] 2021-05-28 00:00:00 EKHOB [facility] DISMISSAL OF PATIENT CORRESPONDENCE 2020-08-09 06:01:00 Doctor Unassigned, Kirvin [facility] POCT TEST 2020-02-09 13:59:00 Yogesh Godwin [facility] POCT TEST 2020-02-02 14:21:00 Yogesh Godwin [facility] ASSIGNMENT OF BENEFITS 2020-02-02 13:54:27 Docto r Unassigned, Kirvin [facility] POCT TEST 2019-11-15 14:06:00 Reina Ruano [facility] CBC WITH DIFFERENTIAL 2019-09-21 07:51:00 Marta Dee [facility] VENOUS CORD GAS 2019-09-20 23:55:00 [facility]CTION 2019-09-20 22:13:00 [facility] URINALYSIS 2019-09-20 16:33:00 Kortney Molina [facility] PROTEIN CREAT RATIO URINE RANDOM 2019-09-20 16:33:00 Kortney Molina [facility] SGOT (ASPARTATE AMINO TRANSFER) 2019-09-20 16:32:00 Jesse [facility] CREATININE 2019-09-20 16:32:00 Jesse [facility] ALANINE AMINO TRANSFERASE(SGPT 2019-09-20 16:32:00 Jesse [facility] LACTATE DEHYDROGENASE 2019-09-20 16:32:00 Jesse [place] URIC ACID 2019-09-20 16:32:00 Jesse [facility] CBC WITH DIFFERENTIAL 2019-09-20 16:32:00 Jesse [place] HEPATITIS B SURFACE ANTIGEN 2019-09-20 16:32:00 Jesse [facility] GALV ONLY - SYPHILIS IGG/IGM 2019-09-20 16:32:00 Jesse [facility] PANEL IDENTIFICATION 2019-09-20 15:54:00 Christine Brady [facility] HB ABO GROUPING 2019-09-20 15:54:00 Alexandrea Brady [facility] RHO (D) IMMUNE GLOBULIN 2019-09-20 15:54:00 Marta Hill [facility] HOSPITAL ADMISSION 2019-09-20 05:01:00 Doctor Un assigned, Kirvin [facility] POCT URINALYSIS 2019-09-14 14:17:00 Lindy Godwin [facility] POCT URINALYSIS 2019-09-08 15:35:00 Lindy Godwin [facility] POCT URINALYSIS 2019-09-01 14:27:00 Lindy Godwin [facility] PANEL IDENTIFICATION 2019-08-04 15:42:00 Nestor Godwin [facility] HB ABO GROUPING 2019-08-04 15:42:00 Lindy Godwin [facility] ANTIBODY TITER INTERPS 2019-08-04 15:42:00 Leroy Godwin [facility] POCT URINALYSIS W/O SPECIFIC GRAVITY 2019-08-04 15:38:00 Lindy Godwin [facility] POCT URINALYSIS 2019-03-21 14:33:00 Lindy Godwin [facility] PANEL IDENTIFICATION 2019-02-24 15:22:00 Rehana Hinds [facility] WORKUP, BLOOD BANK 2019-02-24 15:22:00 Rehana Hinds [facility] ANTIBODY TITER INTERPS 2019-02-24 15:22:00 Nallely Hinds [facility] POCT URINALYSIS 2019-02-24 15:07:00 Lindy Godwin [facility] URINE CULTURE 2019-01-26 16:35:00 Lindy Godwin [facility] GC & CHLAMYDIA AMPLIFIED ASSAY 2019-01-26 16:35:00 Lindy Godwin [facility] LAB ONLY PAP SMEAR-LIQUID BASED 2019-01-26 16:35:00 Lindy Godwin [facility] PAP SMEAR-LIQUID BASED-CP 2019-01-26 16:35:00 Lindy Godwin [facility] GLUCOSE 1 HOUR POST PRANDIAL 2019-01-26 16:23:00 Lindy Godwin [facility] CBC WITH DIFFERENTIAL 2019-01-26 16:23:00 Gavin Godwin [facility] RUBELLA SCREEN IGG 2019-01-26 16:23:00 Philip Godwin [facility] VZV ANTIBODY SCREEN 2019-01-26 16:23:00 Yogesh Godwin [facility] HEPATITIS B SURFACE ANTIGEN 2019-01-26 16:23:00 Lindy Godwin [facility] HCV ANTIBODY 2019-01-26 16:23:00 Lindy Godwin [facility] ANTIGEN TYPING PATIENT 2019-01-26 16:23:00 Leroy Godwin [facility] PANEL IDENTIFICATION 2019-01-26 16:23:00 Nestor Godwin [facility] WORKUP, BLOOD BANK 2019-01-26 16:23:00 Lindy Godwin [facility] ANTIBODY TITER INTERPS 2019-01-26 16:23:00 Leroy Godwin [facility] HIV 1/2 AG-AB WITH REFLEX 2019-01-26 16:23:00 Lindy Godwin [facility] GALV ONLY - SYPHILIS IGG/IGM 2019-01-26 16:23:00 Lindy Godwin [facility] POCT TEST 2019-01-26 15:27:00 Yogesh Godwin [facility] POCT URINALYSIS W/O SPECIFIC GRAVITY 2019-01-26 15:27:00 Lindy Godwin [facility] Encounters Start Date/Time End Date/Time Encounter Type Admission Type Attending Clinicians Care Facility Care Department Encounter ID Source 2021-05-09 13:32:45 Outpatient P [facility] [id number] [facility] 2024-01-07 13:00:00 2024-01-07 13:00:00 Outpatient R SUTTON-SANDRA S, CARLI SUTTON-SANDRA S, CARLI [facility] [id number] [facility] 2023-12-21 11:43:36 2023-12-21 23:59:00 Outpatient R SUTTON-SANDRA S, CARLI SUTTON-SANDRA S, CARLI [facility] [id number] [facility] 2023-12-21 11:00:00 2023-12-21 23:59:00 Hospital Encounter Sutton-Sandra s, Carli [facility] 1..840.114 350.1.13.10 4.2.7.2.686 [id number] [facility] 2023-12-08 12:15:00 2023-12-08 12:30:00 [facility] Visit Lab, Huan - Peter Castroio-Sandra s, Carli [facility] 1..840.114 350.1.13.10 4.2.7.2.686 [id number] [facility] 2023-12-08 10:00:00 2023-12-08 10:24:51 Outpatient R SUTTON-SANDRA S, CARLI SUTTON-SANDRA S, CARLI [facility] [id number] [facility] 2023-12-08 10:00:00 2023-12-08 10:24:51 [facility] [id number] 350.1.13.10 4.2.7.2.686 [id number] [facility] 2023-11-13 11:45:00 2023-11-13 11:45:00 Outpatient CHRISTINE RIBEIRO [id number] [facility] 2023-11-13 00:00:00 2023-11-13 00:00:00 Outpatient MD CHRISTINE CÁRDENAS [id number] [facility] 2023-10-29 11:30:00 2023-10-29 11:30:00 Outpatient R SUTTON-SANDRA S, CARLI HALLIE-SANDRA SSYEDACARLI [facility] [id number] [facility] 2023-10-27 14:45:00 2023-10-27 14:45:00 Outpatient CHRISTINE RIBEIRO [id number] [facility] 2023-10-27 00:00:00 2023-10-27 00:00:00 Outpatient CECIL PETTIT [id number] [facility] 2023-10-06 00:00:00 2023-10-06 00:00:00 Outpatient CECIL PETTIT [id number] [facility] 2023-09-17 00:00:00 2023-09-17 00:00:00 Telephone Franco mojica [facility] [id number] 350.1.13.10 4.2.7.2.686 [id number] [facility] 2023-09-14 00:00:00 2023-09-14 00:00:00 Outpatient CECIL PETTIT [id number] [facility] 2023-09-09 00:00:00 2023-09-09 00:00:00 Outpatient CECIL PETTIT [id number] [facility] 2023-09-08 09:30:00 2023-09-08 10:05:10 Outpatient R SUTTON-SANDRA S, CARLI SUTTON-SANDRA S, CARLI [facility] [id number] [facility] 2023-09-08 09:30:00 2023-09-08 10:05:10 [facility] 1..840.114 350.1.13.10 4.2.7.2.686 [id number] [facility] 2023-09-08 00:00:00 2023-09-08 00:00:00 Orders Only Doctor Unassigned, Kirvin [facility] 1..840.114 350.1.13.10 4.2.7.2.686 [id number] [facility] 2023-09-03 13:30:00 2023-09-03 13:30:00 Outpatient ELENA RIBEIRO [id number] [facility] 2023-08-10 09:20:00 2023-08-10 09:20:00 Outpatient CECIL PETTIT [id number] [facility] 2023-05-29 10:30:00 2023-05-29 10:30:00 Outpatient ADALI RIBERA [id number] [facility] 2023-05-21 08:30:00 2023-05-21 08:30:00 Outpatient ADALI RIBERA [id number] [facility] 2023-05-08 00:00:00 2023-05-08 00:00:00 Outpatient GC_GCBZW_Ka diyala_S [facility] [id number] [facility] 2023-05-04 00:00:00 2023-05-04 00:00:00 Outpatient ADALI RIBERA [id number] [facility] 2023-04-29 00:00:00 2023-04-29 00:00:00 Outpatient ADALI RIBERA [id number] [facility] 2023-04-29 00:00:00 2023-04-29 00:00:00 Outpatient ADALI RIBERA [id number] [facility] 2023-04-28 12:30:00 2023-04-28 12:30:00 Outpatient CHRISTINE RIBEIRO [id number] [facility] 2023-04-28 00:00:00 2023-04-28 00:00:00 Outpatient ADALI RIBERA [id number] [facility] 2023-04-27 13:04:26 2023-04-27 13:04:26 Outpatient SFA SFA [id number] Genaro Amaya 2023-04-27 00:00:00 2023-04-27 00:00:00 Outpatient ADALI RIBERA [id number] [facility] 2023-04-21 08:45:00 2023-04-21 08:45:00 Outpatient NORAH [facility]IR[facility] [id number] [facility] 2023-04-20 16:30:00 2023-04-20 16:30:00 Outpatient ADALI RIBERA [id number] [facility] 2023-04-06 11:00:51 2023-04-06 11:00:51 Outpatient SFA SFA [id number] Genaro Herring Jose Lusi 2023-03-16 11:05:05 2023-03-16 11:05:05 Outpatient SFA SFA [id number] Genaro Herring Jose Luis 2023-02-23 13:06:19 2023-02-23 13:06:19 Outpatient SFA SFA [id number] Genaro Herring Jose Luis 2023-02-02 09:02:03 2023-02-02 09:02:03 Outpatient SFA SFA [id number] Genaro Herring Jose Luis 2021-05-29 10:48:00 2021-05-30 13:18:00 Inpatient EL Obinna Obtonio [facility] SURG [id number] [facility] 2021-05-21 17:32:00 2021-05-21 17:32:00 Outpatient Ekopheliase Obcatherineruma HCACL LABO [id number] [facility] 2021-04-04 16:00:00 2021-04-04 08:00:00 Inpatient EL Malickse Obonoruma [facility]AB[facility] DAYS [id number] [facility] 2021-03-29 11:40:00 2021-03-29 11:40:00 Outpatient Ekhaese, Obcatherinerumnati [facility] LABO [id number] [facility] 2021-02-21 11:01:00 2021-02-21 11:01:00 Inpatient Philly Pleitez HCAPM DAYS [id number] [facility] 2021-01-23 09:14:00 2021-01-23 09:14:00 Outpatient EL Enrike Yeboah [facility] DIAB [id number] [facility] 2020-11-07 08:15:00 2020-11-07 08:15:00 Outpatient R LINDY GODWIN [facility] [id number] [facility] 2020-08-09 08:55:29 2020-08-09 10:04:43 Office Visit Lindy Godwin [facility] 1..840.114 350.1.13.10 4.2.7.2.686 [id number] 2020-08-09 08:55:29 2020-08-09 10:04:43 Office Visit Lindy Godwin [facility] 1.2.840.114 350.1.13.10 4.2.7.2.686 [id number] [facility] 2020-08-09 09:15:00 2020-08-09 09:15:00 Outpatient R LINDY GODWIN [facility] [id number] [facility] 2020-08-09 00:00:00 2020-08-09 00:00:00 Orders Only Doctor Unassigned, Kirvin [facility] 1.2.840.114 350.1.13.10 4.2.7.2.686 [id number] [facility] 2020-04-06 08:07:21 2020-04-06 08:42:27 Office Visit Lindy Godwin [facility] HOSE FINISHER [facility] & CHILD [facility] 1..840.114 350.1.13.10 4.2.7.2.686 [id number] 107 [id number] [facility] 2020-04-06 08:15:00 2020-04-06 08:15:00 Outpatient R LINDY GODWIN [facility] [id number] [facility] 2020-02-23 08:06:22 2020-02-23 08:56:47 Office Visit Lindy Godwin [facility] HOSE FINISHER [facility] CHILD [facility] 1..840.114 350.1.13.10 4.2.7.2.686 [id number] 107 [id number] [facility] 2020-02-23 08:15:00 2020-02-23 08:15:00 Outpatient R LINDY GODWIN [facility] [id number] [facility] 2020-02-09 08:32:42 2020-02-09 09:40:50 Office Visit Lindy Godwin [facility] HOSE FINISHER [facility] 1..840.114 350.1.13.10 4.2.7.2.686 [id number] 107 [id number] [facility] 2020-02-09 08:30:00 2020-02-09 08:30:00 Outpatient R LINDY GODWIN [facility] [id number] [facility] 2020-02-07 08:30:00 2020-02-07 08:30:00 Outpatient R [facility] [id number] [facility] 2020-02-02 08:50:24 2020-02-02 09:55:59 Office Visit Lindy Godwin [facility] HOSE FINISHER [facility] CHILD [facility] 1.2.840.114 350.1.13.10 4.2.7.2.686 [id number] 107 [id number] [facility] 2020-02-02 08:15:00 2020-02-02 08:15:00 Outpatient R LINDY GODWIN [facility] [id number] [facility] 2020-02-02 00:00:00 2020-02-02 00:00:00 Orders Only Doctor Unassigned, Kirvin [facility] 1..840.114 350.1.13.10 4.2.7.2.686 [id number] [facility] 2020-01-17 00:00:00 2020-01-17 00:00:00 Telephone Lindy Godwin [facility] HOSE FINISHER [facility] 1.2.840.114 350.1.13.10 4.2.7.2.686 [id number] 107 [id number] [facility] 2019-11-15 08:58:04 2019-11-15 09:22:08 Nurse Visit Visit, Ang-Rmchp Nurse Lindy Godwin [facility] HOSE FINISHER [facility] CH[facility] 1.0.114 350.1.13.10 4.2.7.2.686 [id number] 107 [id number] [facility] 2019-11-15 09:00:00 2019-11-15 09:00:00 Outpatient R [facility] [id number] [facility] 2019-11-02 08:00:00 2019-11-02 08:00:00 Outpatient R LINDY GODWIN [facility] [id number] [facility] 2019-11-01 10:02:16 2019-11-01 10:10:30 Telemedici ne Visit Lindy Godwin [facility]SE FINISHER [facility]ILD [facility] 1.84.114 350.1.13.10 4.2.7.2.686 [id number] 107 [id number] [facility] 2019-11-01 10:00:00 2019-11-01 10:00:00 Outpatient R LINDY GODWIN [facility] [id number] [facility] 2019-10-12 08:05:41 2019-10-12 09:57:15 Telemedici ne Visit Lindy Godwin [facility] HOSE FINISHER [facility] 1.840.114 350.1.13.10 4.2.7.2.686 [id number] 107 [id number] [facility] 2019-10-12 09:45:00 2019-10-12 09:45:00 Outpatient R LINDY GODWIN [facility] [id number] [facility] 2019-09-27 11:02:50 2019-09-27 11:23:37 Nurse Visit Visit, Ang-Rmchp Nurse Lindy Godwin [facility] 1.84.114 350.1.13.10 4.2.7.2.686 [id number] 107 [id number] [facility] 2019-09-27 11:00:00 2019-09-27 11:00:00 Outpatient R LINDY GODWIN [facility] [id number] [facility] 2019-09-20 10:19:00 2019-09-22 16:00:00 Hospital Encounter Destini Vazquez [facility] 1..114 350.1.13.10 4.2.7.2.686 [id number] [facility] 2019-09-21 08:00:2019-09-21 08:00:00 Outpatient R LINDY GODWIN [facility] [id number] [facility] 2019-09-20 00:00:00 2019-09-20 00:00:00 Orders Only Doctor Unassigned, Kirvin [facility] 1..840.114 350.1.13.10 4.2.7.2.686 [id number] [facility] 2019-09-14 07:59:23 2019-09-14 08:34:31 Routine Visit Lindy Godwin [facility] HOSE FINISHER [facility] CH[facility] 1..840.114 350.1.13.10 4.2.7.2.686 [id number] 107 [id number] [facility] 2019-09-14 08:00:00 2019-09-14 08:00:00 Outpatient R LINDY GODWIN [facility] [id number] [facility] 2019-09-08 08:56:52 2019-09-08 09:51:11 Routine Visit Lindy Godwin [facility] HOSE FINISHER [facility] 1..840.114 350.1.13.10 4.2.7.2.686 [id number] 107 [id number] [facility] 2019-09-08 09:00:00 2019-09-08 09:00:00 Outpatient R LINDY GODWIN [facility] [id number] [facility] 2019-09-02 00:00:00 2019-09-02 00:00:00 Abstract Lindy Godwin [facility] HO[facility] FINISHER [facility] 1..840.114 350.1.13.10 4.2.7.2.686 [id number] 107 [id number] [facility] 2019-09-01 09:04:51 2019-09-01 09:34:51 [facility] [employer] [employer] Visit Ultrasound, Lindy Gould Antonio F [facility] HOSE FINISHER [facility] 1.2.840.114 350.1.13.10 4.2.7.2.686 [id number] [facility] 2019-09-01 07:51:10 2019-09-01 09:03:14 Routine Visit Lindy Godwin [facility] HOSE FINISHER [facility] CHILD [facility] 1.2.840.114 350.1.13.10 4.2.7.2.686 [id number] 107 [id number] [facility] 2019-08-17 10:53:54 2019-08-17 11:43:25 Routine Visit Lindy Godwin [facility] HOSE FINISHER [facility] CH[facility] 1.2.840.114 350.1.13.10 4.2.7.2.686 [id number] 107 [id number] [facility] 2019-08-04 09:14:38 2019-08-09 10:20:44 Routine Visit Lindy Godwin [facility] HOSE FINISHER [facility] CH[facility] 1.2.840.114 350.1.13.10 4.2.7.2.686 [id number] [facility] 2019-08-09 00:00:00 2019-08-09 00:00:00 Telephone Lindy Godwin [facility] HOSE FINISHER [facility] 1.2.840.114 350.1.13.10 4.2.7.2.686 [id number] 107 [id number] [facility] 2019-08-09 00:00:00 2019-08-09 00:00:00 Abstract Lindy Godwin [facility] HOSE FINISHER [facility] 1.2.840.114 350.1.13.10 4.2.7.2.686 [id number] 107 [id number] [facility] 2019-08-05 00:00:00 2019-08-05 00:00:00 Telephone RupertoLindy cardenas [facility] HOSE FINISHER [facility] 1.2.840.114 350.1.13.10 4.2.7.2.686 [id number] 107 [id number] [facility] 2019-07-11 20:27:51 2019-07-12 03:01:00 Outpatient P CHRISTINA THOMPSON [facility] [id number] [facility] 2019-03-21 09:23:05 2019-03-21 10:17:43 Routine Visit Faculty, Mike Tee [facility] HOSE FINISHER [facility] 1.2.840.114 350.1.13.10 4.2.7.2.686 [id number] 107 [id number] [facility] 2019-03-07 00:00:00 2019-03-07 00:00:00 Telephone Risk, JaneyRmchp-N p/High [facility] HOSE FINISHER [facility] CH[facility] 1.2.840.114 350.1.13.10 4.2.7.2.686 [id number] 107 [id number] [facility] 2019-03-04 00:00:00 2019-03-04 00:00:00 Case Management Nicci [facility] 1.2.840.114 350.1.13.10 4.2.7.2.686 [id number] [facility] 2019-02-25 00:00:00 2019-02-25 00:00:00 Telephone Lindy Godwin [facility] HOSE FINISHER [facility] 1.2.840.114 350.1.13.10 4.2.7.2.686 [id number] [facility] 2019-02-24 09:47:59 2019-02-24 10:32:25 Routine Visit Risk, Ang-Rmchp-N p/High Rehana Hinds [facility] HOSE FINISHER [facility] 1.2.840.114 350.1.13.10 4.2.7.2.686 [id number] 107 [id number] [facility] 2019-02-17 00:00:00 2019-02-17 00:00:00 Abstract Lindy Godwin [facility] HOSE FINISHER [facility] 1.2.840.114 350.1.13.10 4.2.7.2.686 [id number] 107 [id number] [facility] 2019-02-16 10:03:47 2019-02-16 10:39:43 [facility] [employer] K[facility] Visit Ultrasound, Randolph Radford [facility] 1.2.840.114 350.1.13.10 4.2.7.2.686 [id number] [facility] 2019-02-09 00:00:00 2019-02-09 00:00:00 Telephone Lindy Godwin [facility] 1.2.840.114 350.1.13.10 4.2.7.2.686 [id number] 107 [id number] [facility] 2019-01-26 09:47:56 2019-02-08 13:19:30 Initial Visit Lindy Godwin [facility] 1.2.840.114 350.1.13.10 4.2.7.2.686 [id number] 107 [id number] [facility] Results Test Description Test Time Test Comments Results Result Co mments Source BASIC METABOLIC [id number] 05:40:00* Test Item Value Reference Range Interpretation Comme nts SODIUM (test code = NA) 135 mmol/L 136-145 L POTASSIUM (test code = K) 4.7 mmol/L 3.5-5.1 N CHLORIDE (test code = CL) 104.0 mmol/L 98-107 N CARBON DIOXIDE (test code = CO2) 18.0 mmol/L 21-32 L ANION GAP (test code = GAP) 17.7 10-20 N GLUCOSE (test code = GLU) 102 mg/dL 74-106 N BLOOD UREA NITROGEN (test code = BUN) 7 mg/dL 7-18 N GLOMERULAR FILTRATION RATE (test code = GFR) > 60 mL/min See_Comment Estimated GFR by using Modified MDRD formula.Chronic kidney disease is defined as either kidney damageor GFR <60 mL/min/1.73 m2 for >3 months. [Automated message] The system which generated this result transmitted reference range: >=60. The reference range was not used to interpret this result as normal/abnormal. CREATININE (test code = CREAT) 0.70 mg/dL 0.55-1.02 N Note change in reference range due to change in reagent. BUN/CREATININE RATIO (test code = BUN/CREA) 9.7 10-20 L CALCIUM (test code = CA) 8.4 mg/dL 8.5-10.1 L [id number] 10:19:00* Test Item Value Reference Range Interpretation Comme nts GLUBED (test code = GLUBED) 82 mg/dL 74-106 N Performed by cer tified phosphoric acid operator at [facility] Novel Coronavirus [id number] 21:37:00* Test Item Value Reference Range Interpretation Comme nts Novel Coronavirus 2019 Inhouse (test code = [id number]) Negative Negative Positive resul ts are indicative of the presence hoNFGK-GbU-0 RNA, clinical correlation with patient historyand other [...] the qualitative detection of nucleic acids from jcrHCEY-PbG-5 virus and diagnosis of SARS-CoV-2 virusinfection. It is an Emergency Use Authorization (EUA) testauthorized by the U.S. FDA. Novel Coronavirus [id number] 21:37:00* Test Item Value Reference Range Interpretation Comme nts Novel Coronavirus 2019 Inhouse (test code = [id number]) Negative Negative Positive resul ts are indicative of the presence bnKHJS-TkB-9 RNA, clinical correlation with patient historyand other [...] the qualitative detection of nucleic acids from ppiXRHS-MnF-3 virus and diagnosis of SARS-CoV-2 virusinfection. It is an Emergency Use Authorization (EUA) testauthorized by the U.S. FDA. HCG SERUM [id number] 14:33:00* Test Item Value Reference Range Interpretation Comme nts HCG SERUM QUAL (test code = HCGQL) NEGATIVE NEGATIVE This HCGQL test is NOT applicable for MALE patients.Check with nurse about probable order error.If Tumor Marker Test needed, nurse should order test "HCGTU"(Test #550.42507) COMPREHENSIVE METABOLIC [id number] 12:50:00* Test Item Value Reference Range Interpretation Comme nts SODIUM (test code = NA) 138 mmol/L 136-145 N POTASSIUM (test code = K) 3.9 mmol/L 3.5-5.1 N CHLORIDE (test code = CL) 101.0 mmol/L 98-107 N CARBON DIOXIDE (test code = CO2) 29.0 mmol/L 21-32 N ANION GAP (test code = GAP) 11.9 10-20 N GLUCOSE (test code = GLU) 87 mg/dL 74-106 N BLOOD UREA NITROGEN (test code = BUN) 10 mg/dL 7-18 N GLOMERULAR FILTRATION RATE (test code = GFR) > 60 mL/min See_Comment Estimated GFR by using Modified MDRD formula.Chronic kidney disease is defined as either kidney damageor GFR <60 mL/min/1.73 m2 for >3 months. [Automated message] The system which generated this result transmitted reference range: >=60. The reference range was not used to interpret this result as normal/abnormal. CREATININE (test code = CREAT) 0.90 mg/dL 0.55-1.02 N Note change in reference range due to change in reagent. BUN/CREATININE RATIO (test code = BUN/CREA) 11.5 10-20 N TOTAL PROTEIN (test code = PROT) 7.3 gram/dL 6.4-8.2 N ALBUMIN (test code = ALB) 4.4 g/dL 3.4-5.0 N GLOBULIN (test code = GLOB) 2.9 gram/dL 2.7-4.2 N ALBUMIN/GLOBULIN RATIO (test code = A/G) 1.5 0.75-1.50 N CALCIUM (test code = CA) 9.6 mg/dL 8.5-10.1 N BILIRUBIN TOTAL (test code = BILT) 0.50 mg/dL 0.0-1.0 N SGOT/AST (test code = AST) 26 IUnit/L 15-37 N SGPT/ALT (test code = ALT) 32 IUnit/L 12-78 N ALKALINE PHOSPHATASE TOTAL (test code = ALKP) 90 IUnit/L 45-117 N Note change in reference range due to change in reagent. PROTHROMBIN [id number] 12:31:00* Test Item Value Reference Range Interpretation Comme nts PROTHROMBIN TIME PATIENT (test code = PTP) 13.2 seconds 9.0-14.0 N INTERNATIONAL NORMAL RATIO (test code = INR) 1.2 0.8-1.2 N The therapeutic range for oral anticoagulant therapy formost indications is an international normalized ratio (INR)of between 2.0 and 3.0. The recommended therapeutic INRrange for various clinical situations is listed below: Clinical Situation INR range Pulmonary embolism treatment (2.0-3.0)Venous thrombosis treatmentVenous thrombosis prophylaxis (high risk surgery)Prevention of systemic embolism from: Acute myocardial infarction Valvular heart disease Atrial fibrillation Mechanical prosthetic heart valves (2.5-3.5) IS PATIENT ON ANTICOAGULANTS? NTHROMBOPLASTIN TIME [id number] 12:31:00* Test Item Value Reference Range Interpretation Comme nts THROMBOPLASTIN TIME PARTIAL (test code = PTT) 39.8 seconds 23.0-37.0 H IS PATIENT ON ANTICOAGULANTS? NCBC W/AUTO [id number] 12:20:00* Test Item Value Reference Range Interpretation Comme nts WHITE BLOOD CELL (test code = WBC) 6.6 K/mm3 4.5-12.5 N RED BLOOD CELL (test code = RBC) 5.53 mill/mm3 3.7-5.2 H HEMOGLOBIN (test code = HGB) 14.1 gram/dL 11.5-15.5 N HEMATOCRIT (test code = HCT) 45.5 % 36.0-46.0 N MEAN CELL VOLUME (test code = MCV) 82.3 fL 80-98 N MEAN CELL HGB (test code = MCH) 25.5 picogram 27.0-33.0 L MEAN CELL HGB CONCETRATION (test code = MCHC) 31.0 gram/dL 33.0-36.0 L RED CELL DISTRIBUTION WIDTH (test code = RDW) 13.6 % 11.6-16.2 N RED CELL DISTRIBUTION WIDTH SD (test code = RDW-SD) 40.2 fL 37.0-51.0 N PLATELET COUNT (test code = PLT) 311 K/mm3 150-450 N MEAN PLATELET VOLUME (test c ode = MPV) 9.9 fL 6.7-11.0 N NEUTROPHIL % (test code = NT%) 55.4 % 39.0-69.0 N IMMATURE GRANULOCYTE % (test code = IG%) 0.3 % 0.0-5.0 N LYMPHOCYTE % (test code = LY%) 31.1 % 25.0-55.0 N MONOCYTE % (test code = MO%) 10.6 % 0.0-10.0 H EOSINOPHIL % (test code = EO%) 2.0 % 0.0-5.0 N BASOPHIL % (test code = BA%) 0.6 % 0.0-1.0 N NUCLEATED RBC % (test code = NRBC%) 0.0 % 0-0 N NEUTROPHIL # (test code = NT#) 3.65 K/mm3 1.8-7.7 N IMMATURE GRANULOCYTE # (test code = IG#) 0.02 x10 3/uL 0-0.03 N LYMPHOCYTE # (test code = LY#) 2.05 K/mm3 1.0-5.0 N MONOCYTE # (test code = MO#) 0.70 K/mm3 0-0.8 N EOSINOPHIL # (test code = EO#) 0.13 K/mm3 0.0-0.5 N BASOPHIL # (test code = BA#) 0.04 K/mm3 0.0-0.2 N NUCLEATED RBC # (test code = NRBC#) 0.00 K/mm3 0.0-0.1 N MANUAL DIFF REQUIRED (test c ode = MDIFF) NO STOMACH,[id number] 13:40:00* Test Item Value Reference Range Interpretation Comme nts STOMACH,BIOPSY (test code = STOMBX) RUN DATE: 04/08/21 [place] [facility] PAGE 1 RUN TIME: 1341 Specimen Inquiry RUN USER: INTERFACE PATIENT: TYRA RIBERA [facility] [id number] AGE/SX: 30/F ROOM: RE04/04/21[facility] DR: Enrike Yeboah DO : 89 BED: DIS: STATUS: [facility] TLOC: SPEC #: [id number] RECD: 04/05/21 STATUS: SHELLYOneal JANNIE #: [id number] CHERISE: 04/04/21-[address]: Enrike Yeboah DO ENTERED: 04/05/21 SP TYPE: BX STOMACH OT DR: ORDERED: GROSS PROCEDURES: GROSS (04/08/21-1147) TISSUES: [...] INTESTINAL METAPLASIA, DYSPLASIA, AND MALIGNANCY DMW/sm D [id number], [id number] MACROSCOPIC The first specimen is received in [...] CONTINUED ON NEXT PAGE RUN DATE: 04/08/21 [facility] PAGE 2 RUN TIME: 1341 Specimen Inquiry RUN USER: INTERFACE SPEC #: [id number] PATIENT: TYRA RIBERA #[id number] (Continued) MACROSCOPIC (Continued) GROSS PERFORMED AT [facility] [address] [place] [phone] [phone] MICROSCOPIC All of the stains, including any controls performed, stain appropriately. MICROSCOPIC PERFORMED AT [facility] [address] [place] [address] [phone] PERFORM[address] SITE Diagnosis performed at: [facility] [address] [place] [address] Signed SIGNATURE ON FILE Vee Garcia MD 04/08/21 1340 END OF REPORT Novel Coronavirus 16:19:00* Test Item Value Reference Range Interpretation Comme nts Novel Coronavirus 2019 Inhouse (test code = [id number]) Negative Negative Positive resul ts are indicative of the presence jkOBPE-FpW-7 RNA, clinical correlation with patient historyand other [...] the qualitative detection of nucleic acids from ahlTYBV-IqL-3 virus and diagnosis of SARS-CoV-2 virusinfection. It is an Emergency Use Authorization (EUA) testauthorized by the U.S. FDA. Novel Coronavirus [id number] 16:19:00* Test Item Value Reference Range Interpretation Comme nts Novel Coronavirus 2019 Inhouse (test code = [id number]) Negative Negative Positive resul ts are indicative of the presence qlFKHX-CvV-0 RNA, clinical correlation with patient historyand other [...] the qualitative detection of nucleic acids from mhrYELT-FsH-3 virus and diagnosis of SARS-CoV-2 virusinfection. It is an Emergency Use Authorization (EUA) testauthorized by the U.S. FDA. COMPREHENSIVE METABOLIC [id number] 12:52:00* Test Item Value Reference Range Interpretation Comme nts SODIUM (test code = NA) 138 mmol/L 136-145 N POTASSIUM (test code = K) 3.5 mmol/L 3.5-5.1 N CHLORIDE (test code = CL) 105.0 mmol/L 98-107 N CARBON DIOXIDE (test code = CO2) 23.0 mmol/L 21-32 N ANION GAP (test code = GAP) 13.5 10-20 N GLUCOSE (test code = GLU) 155 mg/dL 74-106 H BLOOD UREA NITROGEN (test code = BUN) 14 mg/dL 7-18 N GLOMERULAR FILTRATION RATE (test code = GFR) > 60 mL/min See_Comment Estimated GFR by using Modified MDRD formula.Chronic kidney disease is defined as either kidney damageor GFR <60 mL/min/1.73 m2 for >3 months. [Automated message] The system which generated this result transmitted reference range: >=60. The reference range was not used to interpret this result as normal/abnormal. CREATININE (test code = CREAT) 0.80 mg/dL 0.55-1.02 N Note change in reference range due to change in reagent. BUN/CREATININE RATIO (test code = BUN/CREA) 17.9 10-20 N TOTAL PROTEIN (test code = PROT) 7.2 gram/dL 6.4-8.2 N ALBUMIN (test code = ALB) 4.0 g/dL 3.4-5.0 N GLOBULIN (test code = GLOB) 3.2 gram/dL 2.7-4.2 N ALBUMIN/GLOBULIN RATIO (test code = A/G) 1.2 0.75-1.50 N CALCIUM (test code = CA) 9.5 mg/dL 8.5-10.1 N BILIRUBIN TOTAL (test code = BILT) 0.50 mg/dL 0.0-1.0 N SGOT/AST (test code = AST) 17 IUnit/L 15-37 N SGPT/ALT (test code = ALT) 22 IUnit/L 12-78 N ALKALINE PHOSPHATASE TOTAL (test code = ALKP) 80 IUnit/L 45-117 N Note change in reference range due to change in reagent. URINALYSIS [id number] 12:39:00* Test Item Value Reference Range Interpretation Comme nts UA COLOR (test code = COLU) YELLOW YELLOW UA APPEARANCE (test code = APPU) CLEAR CLEAR UA BILIRUBIN DIPSTICK (test code = BILU) NEGATIVE mg/dL NEGATIVE UA SPECIFIC GRAVITY (test code = SGU) 1.027 1.001-1.035 UA PH DIPSTICK (test code = HARRIET) 5.0 5.0-8.0 UA UROBILINIOGEN DIPSTICK (test code = URO) Normal mg/dL NEGATIVE UA NITRITE DIPSTICK (test code = ROSEANNE) NEGATIVE NEGATIVE UA LEUKOCYTE ESTERASE W REFLEX (test code = LEUUR) NEGATIVE Jovani/uL NEGATIVE UA WBC (test code = WBCU) 0-5 per HPF 0-5 UA RBC (test code = RBCU) per HPF 0-5 UA EPITHELIAL CELLS (test code = EPIU) MOD per HPF FEW UA BACTERIA (test code = BACU) FEW #/HPF NONE A UA GLUCOSE DIPSTICK (test code = DGLUU) NEGATIVE mg/dL NEGATIVE UA KETONE DIPSTICK (test code = KETU) NEGATIVE mg/dL NEGATIVE UA BLOOD DIPSTICK (test code = DEVEN) 0.1 mg/dL (1+) mg/dL NEGATIVE A UA PROTEIN DIPSTICK (test code = PROU) NEGATIVE mg/dL NEGATIVE UA URIC ACID CRYSTALS (test code = URIU) FEW #/HPF NONE A UA MUCUS (test code = MUCU) FEW #/LPF FEW Urine Source? Clean CatchUR HCG [id number] 12:39:00* Test Item Value Reference Range Interpretation Comme nts UR HCG QUAL (test code = HCGQLU) NEGATIVE This HCGQL test is NOT applicable for MALE patients.Check with nurse about probable order error.If Tumor Marker Test needed, nurse should order test "HCGTU"(Test #550.24462) Urine Source? Clean CatchPROTHROMBIN [id number] 12:16:00* Test Item Value Reference Range Interpretation Comme nts PROTHROMBIN TIME PATIENT (test code = PTP) 13.5 seconds 9.0-14.0 N INTERNATIONAL NORMAL RATIO (test code = INR) 1.2 0.8-1.2 N The therapeutic range for oral anticoagulant therapy formost indications is an international normalized ratio (INR)of between 2.0 and 3.0. The recommended therapeutic INRrange for various clinical situations is listed below: Clinical Situation INR range Pulmonary embolism treatment (2.0-3.0)Venous thrombosis treatmentVenous thrombosis prophylaxis (high risk surgery)Prevention of systemic embolism from: Acute myocardial infarction Valvular heart disease Atrial fibrillation Mechanical prosthetic heart valves (2.5-3.5) IS PATIENT ON ANTICOAGULANTS? NTHROMBOPLASTIN TIME [id number] 12:16:00* Test Item Value Reference Range Interpretation Comme nts THROMBOPLASTIN TIME PARTIAL (test code = PTT) 36.9 seconds 23.0-37.0 N IS PATIENT ON ANTICOAGULANTS? NCBC W/AUTO [id number] 12:10:00* Test Item Value Reference Range Interpretation Comme nts WHITE BLOOD CELL (test code = WBC) 7.7 K/mm3 4.5-12.5 N RED BLOOD CELL (test code = RBC) 5.31 mill/mm3 3.7-5.2 H HEMOGLOBIN (test code = HGB) 13.6 gram/dL 11.5-15.5 N HEMATOCRIT (test code = HCT) 44.4 % 36.0-46.0 N MEAN CELL VOLUME (test code = MCV) 83.6 fL 80-98 N MEAN CELL HGB (test code = MCH) 25.6 picogram 27.0-33.0 L MEAN CELL HGB CONCETRATION (test code = MCHC) 30.6 gram/dL 33.0-36.0 L RED CELL DISTRIBUTION WIDTH (test code = RDW) 14.6 % 11.6-16.2 N RED CELL DISTRIBUTION WIDTH SD (test code = RDW-SD) 44.0 fL 37.0-51.0 N PLATELET COUNT (test code = PLT) 291 K/mm3 150-450 N MEAN PLATELET VOLUME (test c ode = MPV) 10.4 fL 6.7-11.0 N NEUTROPHIL % (test code = NT%) 66.9 % 39.0-69.0 N IMMATURE GRANULOCYTE % (test code = IG%) 0.5 % 0.0-5.0 N LYMPHOCYTE % (test code = LY%) 26.9 % 25.0-55.0 N MONOCYTE % (test code = MO%) 4.1 % 0.0-10.0 N EOSINOPHIL % (test code = EO%) 1.2 % 0.0-5.0 N BASOPHIL % (test code = BA%) 0.4 % 0.0-1.0 N NUCLEATED RBC % (test code = NRBC%) 0.0 % 0-0 N NEUTROPHIL # (test code = NT#) 5.16 K/mm3 1.8-7.7 N IMMATURE GRANULOCYTE # (test code = IG#) 0.04 x10 3/uL 0-0.03 H LYMPHOCYTE # (test code = LY#) 2.08 K/mm3 1.0-5.0 N MONOCYTE # (test code = MO#) 0.32 K/mm3 0-0.8 N EOSINOPHIL # (test code = EO#) 0.09 K/mm3 0.0-0.5 N BASOPHIL # (test code = BA#) 0.03 K/mm3 0.0-0.2 N NUCLEATED RBC # (test code = NRBC#) 0.00 K/mm3 0.0-0.1 N MANUAL DIFF REQUIRED (test c ode = MDIFF) NO CBC W/AUTO [id number] 14:12:00* Test Item Value Reference Range Interpretation Comme [...] 27.0-34.2 L MEAN CELL HGB CONCETRATION (test code = MCHC) 32.6 G/DL 31.5-34.0 N RED CELL DISTRIBUTION WIDTH (test code = RDW) 14.5 SD 11.5-14.5 N PLATELET COUNT (test code = PLT) 268 K/mm3 150-450 N MEAN PLATELET VOLUME (test code = MPV) 9.70 fL 7.0-10.5 N NEUTROPHIL % (test code = NT%) 43.0 % 40-76 N IMMATURE GRANULOCYTE % (test code = IG%) 0.5 % 0.0-5.0 N LYMPHOCYTE % (test code = LY%) 43.0 % 20.5-51.1 N MONOCYTE % (test code = MO%) 12.1 % 1.7-9.3 H EOSINOPHIL % (test code = EO%) 1.2 % 0.0-6.0 N BASOPHIL % (test code = BA%) 0.2 % 0.0-2.0 N NUCLEATED RBC % (test code = NRBC%) 0.0 /100WBC% 0.0-1.0 N NEUTROPHIL # (test code = NT#) 1.8 K/mm3 1.8-7.6 N IMMATURE GRANULOCYTE # (test code = IG#) 0.02 x10 3/uL 0.00-0.03 N LYMPHOCYTE # (test code = LY#) 1.8 K/mm3 0.6-3.2 N MONOCYTE # (test code = MO#) 0.5 K/mm3 0.3-1.1 N EOSINOPHIL # (test code = EO#) 0.1 K/mm3 0.0-0.4 N BASOPHIL # (test code = BA#) 0.0 K/mm3 0.0-0.1 N NUCLEATED RBC # (test code = NRBC#) 0.0 K/mm3 0.0-0.1 N MANUAL DIFF REQUIRED (test code = MDIFF) NO DIFF/SCN CRITERIA SLIDE REVIEW CONSISTANT WITH AUTO DIFFERENTIAL. HCG SERUM [id number] 11:50:00* Test Item Value Reference Range Interpretation Comme nts HCG SERUM QUAL (test code = HCGQL) SERUM NEGATIVE SCREEN NEGATIVE COVID 19 INHOUSE [id number] 11:49:00* Test Item Value Reference Range Interpretation Comme nts COVID 19 INHOUSE AG (test code = BZBVC20IDNY) NEGATIVE Negative Per telesales team leader , negative results should be treated aspresumptive and, if inconsistent with clinical signs andsymptoms or necessary for patient management, should betested with an alternative molecular assay. Negative resultsdo not preclude SARS-CoV-2 infection and should not be usedas the sole basis for patient management decisions. Negative results should be considered in the context of apatient's recent exposures, history, presence of clinicalsigns and symptoms consistent with COVID-19. CBC W/AUTO [id number] 11:42:00* Test Item Value Reference Range Interpretation Comme [...] pg 27.0-34.2 L MEAN CELL HGB CONCETRATION ( test code = MCHC) 32.6 G/DL 31.5-34.0 N RED CELL DISTRIBUTION WIDTH (test code = RDW) SD 11.5-14.5 N PLATELET COUNT (test code = PLT) 268 K/mm3 150-450 N MEAN PLATELET VOLUME (test c ode = MPV) fL 7.0-10.5 N NEUTROPHIL % (test code = NT%) % 40-76 N IMMATURE GRANULOCYTE % (test code = IG%) % 0.0-5.0 N LYMPHOCYTE % (test code = LY%) % 20.5-51.1 N MONOCYTE % (test code = MO%) % 1.7-9.3 H EOSINOPHIL % (test code = EO%) % 0.0-6.0 N BASOPHIL % (test code = BA%) % 0.0-2.0 N NUCLEATED RBC % (test code = NRBC%) /100WBC% 0.0-1.0 N NEUTROPHIL # (test code = NT#) K/mm3 1.8-7.6 N IMMATURE GRANULOCYTE # (test code = IG#) x10 3/uL 0.00-0.03 N LYMPHOCYTE # (test code = LY#) K/mm3 0.6-3.2 N MONOCYTE # (test code = MO#) K/mm3 0.3-1.1 N EOSINOPHIL # (test code = EO#) K/mm3 0.0-0.4 N BASOPHIL # (test code = BA#) K/mm3 0.0-0.1 N NUCLEATED RBC # (test code = NRBC#) K/mm3 0.0-0.1 N MANUAL DIFF REQUIRED (test c ode = MDIFF) DIFF/SCN CRITERIA POCT [id number] 13:59:00* Test Item Value Reference Range Interpretation Comme nts POCT PREG (test code = 1605) Negative On board controls acceptable with C Line (test code = 3574) Yes POCT PREG LOT # (test code = 3575) POCT PREG TEST DATE ( test code = 3576) [facility] [id number] 13:59:00* Test Item Value Reference Range Interpretation Comme nts POCT PREG (test code = 1605) Negative On board controls acceptable with C Line (test code = 3574) Yes POCT PREG LOT # (test code = 3575) POCT PREG TEST DATE ( test code = 3576) [facility]CT [id number] 13:59:00* Test Item Value Reference Range Interpretation Comme nts POCT PREG (test code = 1605) Negative On board controls acceptable with C Line (test code = 3574) Yes POCT PREG LOT # (test code = 3575) POCT PREG TEST DATE ( test code = 3576) [facility]CT [id number] 14:22:00* Test Item Value Reference Range Interpretation Comme nts POCT PREG (test code = 1605) Negative On board controls acceptable with C Line (test code = 3574) Yes POCT PREG LOT # (test code = 3575) POCT PREG TEST DATE ( test code = 3576) [facility]CT [id number] 14:22:00* Test Item Value Reference Range Interpretation Comme nts POCT PREG (test code = 1605) Negative On board controls acceptable with C Line (test code = 3574) Yes POCT PREG LOT # (test code = 3575) POCT PREG TEST DATE ( test code = 3576) [facility]CT [id number] 14:06:00* Test Item Value Reference Range Interpretation Comme nts POCT PREG (test code = 1605) Negative On board controls acceptable with C Line (test code = 3574) Yes POCT PREG LOT # (test code = 3575) POCT PREG TEST DATE ( test code = 3576) [facility] ONLY - SYPHILIS [id number] 14:13:00* Test Item Value Reference Range Interpretation Comme nts Syphilis IgG/IgM (test code = 86924-6) Non-reactive Non-reactive LUTHER (test code = LUTHER) Non-reactive - No serologic evidence of T. pallidum infection. Cannot exclude incubating or early syphilis. Submit a second specimen in 2-4 weeks if syphilis is clinically suspected. Equivocal - Further testing to follow. Reactive - Further testing to follow. Lab Interpretation (test code = 10000-7) Normal [facility] WITH [id number] 09:26:00* Test Item Value Reference Range Interpretation [...] 32.8 g/dL 31.6-35.1 RDW-SD (test code = 24065-0) 44.3 fL 39-49.9 RDW-CV (test code = 788-0) 14.4 % 12-15.5 PLT (test code = 777-3) See_Comment [Automated message] The system which generated this result transmitted reference range: 166 - 358 10*3/?L. The reference range was not used to interpret this result as normal/abnormal. MPV (test code = 66817-4) 11.0 fL 9.5-12.9 NRBC/100 WBC (test code = 9944012844) See_Comment [Automated message] The system which generated this result transmitted reference range: 0.0 - 10.0 /100 WBCs. The reference range was not used to interpret this result as normal/abnormal. NRBC x10^3 (test code = 8550366892) <0.01 See_Comment [Automated message] The system which generated this result transmitted reference range: 10*3/?L. The reference range was not used to interpret this result as normal/abnormal. GRAN MAT (NEUT) % (test code = 770-8) 81.3 % IMM GRAN % (test code = 2118172269) 0.50 % LYMPH % (test code = 736-9) 10.0 % MONO % (test code = 5905-5) 7.8 % EOS % (test code = 713-8) 0.1 % BASO % (test code = 706-2) 0.3 % GRAN MAT x10^3(ANC) (test code = 4331625418) 11.84 10*3/uL 1.88-7.09 H IMM GRAN x10^3 (test code = 8824852109) 0.08 10*3/uL 0-0.06 H LYMPH x10^3 (test code = 731-0) 1.46 10*3/uL 1.32-3.29 MONO x10^3 (test code = 742-7) 1.13 10*3/uL 0.33-0.92 H EOS x10^3 (test code = 711-2) <0.03 0.03-0.39 L BASO x10^3 (test code = 704-7) 0.04 10*3/uL 0.01-0.07 Lab Interpretation (test code = 61916-8) Abnormal [facility] Club[facility] (D[facility] IMMUNE [id number] 03:01:12* Test Item Value Reference Range Interpretation Comme nts RHIG CANDIDATE? (test code = 5055) No- see comment Patient is not a candidate for RhIg- Patient is Rh Positive.Performed at [facility] Laboratory Services - [facility] Blood [address] [place] [address]Szmf Free: [phone] No. [id number] [facility] ClubVenous Cord [id number] 00:09:00* Test Item Value Reference Range Interpretation Comme nts VENOUS BASE EXCESS, CORD (test code = 9629916409) mEq/L VENOUS PH, CORD (test code = 4000058483) 7.25-7.45 VENOUS PC02, CORD (test code = 4977786645) See_Comment H [Automated me ssage] The system which generated this result transmitted reference range: 27 - 49 mmHg. The reference range was not used to interpret this result as normal/abnormal. VENOUS PO2, CORD (test code = 0353687646) See_Comment [Automated me ssage] The system which generated this result transmitted reference range: 17 - 41 mmHg. The reference range was not used to interpret this result as normal/abnormal. VENOUS BICARBONATE, CORD (test code = 2719972375) See_Comment [Automa ling message] The system which generated this result transmitted reference range: 12 - 29 mEq/L. The reference range was not used to interpret this result as normal/abnormal. Lab Interpretation (test code = 91496-9) Abnormal [facility] [place] Cord [id number] 00:06:00* Test Item Value Reference Range Interpretation Comme nts BASE EXCESS, CORD (test code = 2013138096) mEq/L AC PH, CORD (BEAKER) (test code = 7026333289) 7.18-7.38 PC02, CORD (test code = 5130360549) See_Comment [Automated messa ge] The system which generated this result transmitted reference range: 32 - 66 mmHg. The reference range was not used to interpret this result as normal/abnormal. PO2, CORD (test code = 5321605832) See_Comment [Automated messa ge] The system which generated this result transmitted reference range: 10 - 30 mmHg. The reference range was not used to interpret this result as normal/abnormal. BICARBONATE, CORD (test code = 2590680725) See_Comment [Automated messa ge] The system which generated this result transmitted reference range: 17 - 27 mEq/L. The reference range was not used to interpret this result as normal/abnormal. [facility] [id number] 19:06:46 ANTIBODY Wilder Comment: Performed at [facility] Laboratory Services - [facility] Blood [address] [address]Mifq Free: [phone] No. [id number] LABUnLongview Regional Medical CenterType and Screen - ONCE STAT 2019-09-20 18:19:37* Test Item Value Reference Range Interpretation Comme [facility] ABO & RH (test code = 20) O POSITIVE Performed at [facility] Laboratory Services - [facility] Blood [address] Free: [phone] No. [id number] IAT (test code = 1185) Positive Performed at [facility] Laboratory Services [facility] Blood [address] Free: [phone] No. [id number] [facility] ClubUric Acid [id number] 18:12:00* Test Item Value Reference Range Interpretation Comme [facility] URIC ACID (test code = 0067475476) 5.5 mg/dL 2.9-6 Lab Interpretation (test cod e = 36278-3) Normal [facility] Qthsrnjvkv6402-43-32 18:12:00* Test Item Value Reference Range Interpretation Comme [facility] CREATININE (test code = 3635820608) 0.58 mg/dL 0.5-1.04 eGFR Calculation (Non-) (test code = 1884266326) mL/min/1.73m2 eGFR Calculation () (test code = 4464555985) mL/min/1.73m2 LUTHER (test code = LUTHER) Association [...] or urine or abnormalities in imaging tests). [facility] ClubSGOT (Asparate Amino Transfer)2019-09-20 18:12:00* Test Item Value Reference Range Interpretation Comme [facility] AST(SGOT) (test code = 6485071863) 22 U/L 13-40 Lab Interpretation (test cod e = 09113-0) Normal [facility] Trophy ClubAlanine Amino Transferase (SGPT)2019-09-20 18:12:00* Test Item Value Reference Range Interpretation Comme nts ALTv (test code = 1742-6) 20 U/L 5-35 Lab Interpretation (test cod e = 87885-8) Normal [facility] Trophy ClubLactate Cvyvzpmzfulit5908-51-49 18:07:00* Test Item Value Reference Range Interpretation Comme nts LDH (test code = 9054351926) 400 U/L 300-600 Lab Interpretation (test cod e = 45331-4) Normal [facility] ClubHepatitis B Surface [id number] 17:51:00 * Test Item Value Reference Range Interpretation Comme nts HBsAg Semi-Quantitative (veronica t code = 5195-3) Negative Negative [facility] Trophy ClubProtein CREAT Ratio Urine Zgdfph2797-79-22 17:03:00* Test Item Value Reference Range Interpretation Comme nts T. PROT U (test code = 2888-6) 12 mg/dL CREAT U (test code = 0438917118) 109.8 mg/dL Protein/Creatinine Ratio Uri ne (test code = 0214706443) 0.0-2.0 [facility] Trophy ClubUrinalysis2020-03-10 16:58:00* Test Item Value Reference Range Interpretation Comme nts APPEARANCE (test code = 6252775769) Hazy Clear A COLOR (test code = 5843014055) Yellow Yellow PH (test code = 0172262808) 4.8-8.0 SP GRAVITY (test code = 2497631035) 1.003-1.030 GLU U QUAL (test code = 3587800000) Normal Normal BLOOD (test code = 8689430001) Negative Negative KETONES (test code = 9614010249) Negative Negative PROTEIN (test code = 2887-8) Negative Negative UROBILIN (test code = 9440403878) Normal Normal BILIRUBIN (test code = 5839413730) Negative Negative NITRITE (test code = 7303801935) Negative Negative LEUK AURA (test code = 0094640298) Negative Negative RBC/HPF (test code = 3998680293) See_Comment [Automated messa ge] The system which generated this result transmitted reference range: 0 - 3 HPF. The reference range was not used to interpret this result as normal/abnormal. WBC/HPF (test code = 2509563189) See_Comment [Automated messa ge] The system which generated this result transmitted reference range: 0 - 5 HPF. The reference range was not used to interpret this result as normal/abnormal. BACTERIA (test code = 4992616927) Few Negative A MUCOUS (test code = 1027466814) Slight Negative LPF A SQ EPITH (test code = 9300964718) See_Comment H [Automated messa ge] The system which generated this result transmitted reference range: <=2 HPF. The reference range was not used to interpret this result as normal/abnormal. Lab Interpretation (test code = 53235-2) Abnormal [facility] WITH LLAYGQXOPUCD6171-29-96 16:53:00* Test Item Value Reference Range Interpretation [...] 32.9 g/dL 31.6-35.1 RDW-SD (test code = 82755-1) 43.2 fL 39-49.9 RDW-CV (test code = 788-0) 14.2 % 12-15.5 PLT (test code = 777-3) See_Comment [Automated [employer] ge] The system which generated this result transmitted reference range: 166 - 358 10*3/?L. The reference range was not used to interpret this result as normal/abnormal. MPV (test code = 40500-7) 10.9 fL 9.5-12.9 NRBC/100 WBC (test code = 8789363501) See_Comment [Automated Viibar ssage] The system which generated this result transmitted reference range: 0.0 - 10.0 /100 WBCs. The reference range was not used to interpret this result as normal/abnormal. NRBC x10^3 (test code = 0223298713) <0.01 See_Comment [Automated [employer] ge] The system which generated this result transmitted reference range: 10*3/?L. The reference range was not used to interpret this result as normal/abnormal. GRAN MAT (NEUT) % (test code = 770-8) 76.7 % IMM GRAN % (test code = 4429672670) 0.50 % LYMPH % (test code = 736-9) 14.3 % MONO % (test code = 5905-5) 7.6 % EOS % (test code = 713-8) 0.5 % BASO % (test code = 706-2) 0.4 % GRAN MAT x10^3(ANC) (test code = 0206490088) 8.53 10*3/uL 1.88-7.09 H IMM GRAN x10^3 (test code = 4090984194) 0.06 10*3/uL 0-0.06 LYMPH x10^3 (test code = 731-0) 1.59 10*3/uL 1.32-3.29 MONO x10^3 (test code = 742-7) 0.84 10*3/uL 0.33-0.92 EOS x10^3 (test code = 711-2) 0.05 10*3/uL 0.03-0.39 BASO x10^3 (test code = 704-7) 0.04 10*3/uL 0.01-0.07 Lab Interpretation (test code = 19009-1) Abnormal [facility] URINALYSIS W SPECIFIC [id number] 14:17:00* Test Item Value Reference Range Interpretation [...] POCT U APPEAR (test code = 3267) [facility] URINALYSIS W SPECIFIC [id number] 15:35:00* Test Item Value Reference Range Interpretation [...] POCT U APPEAR (test code = 3267) [facility] ClubPOCT URINALYSIS W SPECIFIC [id number] 14:27:00* Test Item Value Reference Range Interpretation [...] POCT U APPEAR (test code = 3267) [facility] ClubANTIBODY TITER [id number] 15:17:50* Test Item Value Reference Range Interpretation Comme nts TITERED AB (test code = 1141) Ab Titered: Fya Performed at [facility] B Laboratory Services [facility] Blood [place] [id number] Free: [phone] No. [id number] AB TITER (test code = 247) Antibody Titer: 4 Performed at [facility] Laboratory Services [facility] Blood [place] [address]Toll Free: [phone] No. [id number] [facility] ClubANTIBODY TITER [id number] 15:17:16* Test Item Value Reference Range Interpretation Comme nts TITERED AB (test code = 1141) Ab Titered: K Performed at [facility] Laboratory Services [address] Free: [phone] No. [id number] AB TITER (test code = 247) Antibody Titer: 8 Performed at [facility] Laboratory Services [address] Free: [phone] No. [id number] [facility] ClubPANEL [id number] 13:49:50 ANTIBODY SNTltw-WtrGlnd-G Comment: Performed at [facility] Laboratory Services [address] Free: [phone] No. [id number] LABB[facility] Trophy ClubPrenatal Workup, Blood Bank 2019-08-05 13:47:05* Test Item Value Reference Range Interpretation Comme nts ABO & RH (test code = 20) O POSITIVE Performed at [facility] [address] Free: [phone] No. [id number] IAT (test code = 1185) Positive Performed at [facility] [address] Free: [phone] No. [id number] [facility] ClubPOCT URINALYSIS W/O SPECIFIC [id number] 15:38:00* Test Item Value Reference Range Interpretation [...] ve Lab Interpretation (test cod e = 37236-9) Abnormal [facility] URINALYSIS W/O SPECIFIC [id number] 15:38:00* Test Item Value Reference Range Interpretation [...] ve Lab Interpretation (test cod e = 33415-6) Abnormal [facility] URINALYSIS W/O SPECIFIC [id number] 15:38:00* Test Item Value Reference Range Interpretation [...] ve Lab Interpretation (test cod e = 92138-5) Abnormal [facility] URINALYSIS W SPECIFIC [id number] 14:33:00* Test Item Value Reference Range Interpretation [...] POCT U APPEAR (test code = 3267) [facility] ClubPONH URINALYSIS W SPECIFIC [id number] 14:33:00* Test Item Value Reference Range Interpretation [...] POCT U APPEAR (test code = 3267) [facility] ClubANTIBODY TITER [id number] 11:17:08* Test Item Value Reference Range Interpretation Comme nts TITERED AB (test code = 1141) Ab Titered: Fya Performed at [facility] B Laboratory Services [facility] Blood [address] [address]Ttkj Free: [phone] No. [id number] AB TITER (test code = 247) Antibody Titer: 8 Performed at [facility] Laboratory Services [facility] Blood [address] [address]Xomd Free: [phone] No. [id number] [facility] ClubANTIBODY TITER [id number] 11:17:08* Test Item Value Reference Range Interpretation Comme nts TITERED AB (test code = 1141) Ab Titered: Fya Performed at [place] [address]Toll Free: [phone] No. [id number] AB TITER (test code = 247) Antibody Titer: 8 Performed at [place] [address]Toll Free: [phone] No. [id number] [facility] ClubANTIBODY TITER [id number] 11:16:14* Test Item Value Reference Range Interpretation Comme nts TITERED AB (test code = 1141) Ab Titered: K Performed at [address] Free: [phone] No. [id number] AB TITER (test code = 247) Antibody Titer: 4 Performed at [place] [address]Toll Free: [phone] No. [id number] [facility] ClubANTIBODY TITER [id number] 11:16:14* Test Item Value Reference Range Interpretation Comme nts TITERED AB (test code = 1141) Ab Titered: K Performed at [place] [address]Toll Free: [phone] No. [id number] AB TITER (test code = 247) Antibody Titer: 4 Performed at [place] [address]Toll Free: [phone] No. [id number] [facility] [id number] 11:16:13 ANTIBODY PWGdaa-QydLtnl-E Comment: Performed at [facility] Laboratory Services [place] [address]Toll Free: [phone] No. [id number] [facility] IDENTIFICATION 2019-02-25 11:16:13ANTIBODY VOUonr-NnmHpwy-T Comment: Performed at [facility] Laboratory Services - [address] Free: [phone] No. [id number] [facility], BLOOD [id number] 07:33:42* Test Item Value Reference Range Interpretation Comme nts ABO & RH (test code = 20) O Positive Performed at [facility] Laboratory Services - [address] Free: [phone] No. [id number] IAT (test code = 1185) Positive Performed at [facility] [address] Free: [phone] No. [id number] [facility], BLOOD [id number] 07:33:42 * Test Item Value Reference Range Interpretation Comme nts ABO & RH (test code = 20) O Positive Performed at [facility] Laboratory Services - [address] Free: [phone] No. [id number] IAT (test code = 1185) Positive Performed at [facility] Laboratory Services [address] Free: [phone] No. [id number] [facility] ClubPONH URINALYSIS W SPECIFIC [id number] 15:07:00* Test Item Value Reference Range Interpretation [...] POCT U APPEAR (test code = 3267) [facility] URINALYSIS W SPECIFIC [id number] 15:07:00* Test Item Value Reference Range Interpretation [...] POCT U APPEAR (test code = 3267) [facility] URINALYSIS W SPECIFIC [id number] 15:07:00* Test Item Value Reference Range Interpretation [...] POCT U APPEAR (test code = 3267) [facility] ClubLAB ONLY PAP SMEAR-LIQUID [id number] 15:19:00* Test Item Value Reference Range Interpretation Comme nts Case Report (test code = 0165750780) Gynecologic Cytology?Case: [id number]? Authorizing Provider:?Lindy Godwin,?Collected:? 01/26/2019 1135??? CNP?Ordering Location:? [facility]-? Received:?01/26/2019 2341?? [place]? First Screen:?Adali uMnroe? Specimen:?Liquid Based Pap Preparation, CERVIX? Clinical Information (test code = 8172520402) routine Specimen Adequacy (test code = 46641-3) Satisfactory for Evaluation(Endocervical /Transformation Zone Component Absent) Interpretation (test code = 30902-7) Negative for intraepithelial lesion or malignancy Other Findings (test code = 9085151054) Shift In Blossom Suggestive Of Bacterial Vaginosis Comments (test code = 4582573967) f1vymXHkEZPkaATkBxRzYSJ pHXDdh6hpWKZnvUDbAkOeXd NcZnRuYmpcdWMxXGRlZmYwe 1gkd629qWGzo4lxOMSeQbP7 wXDoNINwsIShS682CYLnDAr cu0ynf8EsAEPyzWOfz1M4LR HUYAtcVeUjO004c5cux0rrr lBpfRH4YILePOKmC8YyVL0z NTVthVXpQGdgrrJwPqX4ZVz uUPMtIpB4FHCeoXPoFIDcL9 86EUI2rUaab4nnEJP1KOVdT CYsVvKhQr3qbTQaL739IUFe TBNVUODqzCp3UFXtlmSwxbR ovMTPm374D843c2ykGTSutd BvhDfNlbavm9dlF595AYUuk GVydzEyMjQwXHBhcGVyaDE1 XEKvLX8wjulhSAX3EXhlTQQ lrqNmIGUnrMYuU0A7OzEebW XjQ9JiRRdfAVCcaou0HyMxW y2ftSYeyHK4RFvot1oxa7yi oSYdSxi0UOCpYxKhYyvpLJa es9Qnw1hwAVEqud8yYXT5dR NatWqtl8M3dEWrYNCjvXEmz iNdXBTjLlU2BEgzKU7cfq99 CSOqUHN2vg6rfBIaxZsukkI exVNoASguQ2HaFVPdr434ED AxW1MoIDDrw8F1tlQoDaPsL ZLhmHB3jzV1XCJfVMk5zKKx tgM0kuRgsZJlH0uqzD1sLVn aBC3qgzlmg7xuYQS8DBmzRG NggTV3rhsmPCyhPIXsDjA0h cVnaLQfJHQbuKwlSKjjn012 SGX1SvJdUBBem7PcH8TlvPf qR70wxXzlG20uONAsgZzheL 1agMoipP9wPyKkQzCdRFmoT XJkXHBsYWluXGYwXGZzMjBc sIneiT3sGtAuTiSmSrclNS6 yMWRoO9bgiWZcPRYtQOXvY3 vaCmRdvL9ogXrmNZrxQfIyH oCzFkmjXPLjxlCsiv7xGPFg okOxyqAfhKMcSXVxTsbbX4k 3r5HiF9blw6nxY6lfiPDrsP pccGFyIFVuaXZlcnNpdHkgb 1QoWTC8ZEEtKPJbvACreVNF nyNtB7brIZNij3LeiA8tlEI XZYU3tZSqyxWjFEycDUq8LP LJyKK0WPSadCR7i1jsDHUhI rX3OMIBcRgjAWEsZVX9AQiy Q035cOlnsORjUGZtUEAaBCl kIDOzYVJtNsXfwYkmtO4xTv LcAnUtHjbfXQ0dMNNqA7zsz LOmOCEdRBPjS1hlGlCalI6o aFxmMVxjZjFcZnMxNlxpIEx cUXq7MXNKcFV6FYYPBHF8Mw I0N3pqcEYsarbtGAqoueUyC HBhclxwYXJ9 LMP (test code = 9865187825) Educational Note (test code = 4063809145) r2jkaSUeKVQjk3ylXOXmoOP uZzEwMzNcZnRuYmpcdWMxIH itggXwKKumb7YoH4BcFYFyX FxhbnNpXGRlZmxhbmcxMDMz FBM1nyZnAMWdXYwsHGGjFNs hXh4svWJnxXqbOwCkXPVhi5 cfkcLEfcxneTp6m3vfZEVlT wZ4tDKxSOuiV4lgziZmaBEg TNQnLDg5xK95RXLieS9wtBP qSMpvdfYpXlF4FUqnONXySb Z4VVBvbLVyXTLfV0foPPVuN PYfT9GtTG6xFaygEjn9YVU3 IDtccmVkMFxncmVlbjBcYmx 5ZOAmQ473PFM8lNzed4moLR E3CERoUDRqUmDeSp1xuEBpL 202ACFcBPPXSUZsaEa7KJJq eoAyvzXapMJIi407H818f7g eDNFgatKpjRlXwlpfr3dmJ3 19XHBhcGVydzEyMjQwXHBhc MUxaNO0HXSqWQ1cmrljIDxm SLvbBOXqgxH4PIEbhTErX4W uECWeSN9bfrwbPMK2STnxTC KnDXM0RmHtNAJmr0Kkbfl0I hQbep7epz12YSJ4j8KubYsj YSH2LQW4YsZjVz8xjCRdZYW jSO8jVoZkxTDaITWpvv55xO vfWYwcnfQglZ0gJtUnBKOov GEnBSMtBT2ztOEaYJPykQ0w cmxjXHBnYnJkcmhlYWRccGd bizEnTa3buStgFAZ5QEalX6 hglA7aCoK1USdeY0kogW2uB Ay4ZEuwvND8LTSriQ2rKV7s flpbh0ppDZhcDPdjQGPnrjS 1dgW5PEOkmIKiD0TqaB1vAS ZfDQ9pbgbea7yuVXQ0KKoqG QWwDJN2MoUgJUWbe7Gnmzc3 CjEkg2LmgSFrGBbqW57bp42 9JQQshmAcB8bolYPzwpgmgK YhswdrERtwuwR6PPLgVLUrV WluXGYxXGZzMjJcbGFuZzEw MzNcaGljaFxmMVxkYmNoXGY rJKzqH6wgPvTqQ5VgRIVlWu VcyOWJFTD8iGXwiFWzqCWcu W5geWDoZAKxANJqb6EzPXiz WFPxc3YxNHHmzX4bFEKye4U pjMPtcTPdnOz9CJIoglNvtE OfrT09imTcQT4uDECpXHGiE KBaikZwzRIiy5DfOyXGhWGb qVNxvFLjACDoRG1ixM0bFNW lxcFeCRM7qYHdn8pgKTWpn0 QkZlbtwZG4GL5pPQUciUZzL Z6cB8M2cSTdIDEaBQNsUWex BK2aj3TczAp7MYHlBQB1cYO lTqGmBgFuyQexejJnLQ9goE ofKoRxsxLrIy0jkD50SGLdT E7sLWHtAXblkGNabiTyZYYg mF0fX7IfIZGxO64qOQNzBXV lkA7mkT4qkyJwmxOykuYpq3 9mLJ6iOOIraR3rhRgqjO4px mUgdGhlIGVmZmVjdCBvZiBm RExlMQKeENrbsDb0YHUeAUG 0kGUmGiVxKA86rjHuZQHlXS 56CHLpn1IxGUWaOFYgZE1id oCoTGK9lnTkh48ajSf1PGeg xVKzwQ3tKCosrDWijSVeIwF khZTrXKhfBWDsHH3uAKMjQJ 55IHVuZXhwbGFpbmVkIGNsa I1aQ5OxGYIrI76aXVTrPHFj yA0ucJ6xiicnwfVqNFSunFT zcyBvZiBhbnkgUGFwIFRlc3 BufzOysZq9YbqbeULoodmxO VxmczIyXGxhbmcxMDMzXGhp E1xwTnJhWZRppXvaNBhvl4A oXGYxXGZzMjJccGFyfX0= Embedded Images (test code = 4719350000) [facility] ONLY PAP SMEAR-LIQUID [id number] 15:19:00* Test Item Value Reference Range Interpretation Comme nts Case Report (test code = 9107190004) Gynecologic Cytology?Case: [id number]? Authorizing Provider:?Lindy Godwin,?Collected:? 01/26/2019 1135?? [facility]?Ordering Location:? [facility]? Received:?01/26/2019 2341?? [place]? First Screen:?Adali Munroe? Specimen:?Liquid Based Pap Preparation, CERVIX? Clinical Information (test code = 1815185556) routine Specimen Adequacy (test code = 74852-1) Satisfactory for Evaluation(Endocervical /Transformation Zone Component Absent) Interpretation (test code = 65747-5) Negative for intraepithelial lesion or malignancy Other Findings (test code = 4934327715) Shift In Blossom Suggestive Of Bacterial Vaginosis Comments (test code = 5184961806) t7jofHLaOYPpcTYqClXaZEN cXBUjd6pvCSMomSCxCmNfAw NcZnRuYmpcdWMxXGRlZmYwe 9inl208vVKrn7opTEZnEhU3 tAWtLQTauZXrT397MZExBXm gg0wgd1EdEBNbbNJim1G1QZ PLCBseEvFcC411i8ker8zgo eLojUY8LKXlPWPpA7AxYB3r YMSldIHiIChrtcVnSfQ4OMd qMRXySwN8UUBehATeREYeN4 85WPD0aPrsc2cqBZJ9KODvY ELcOrDaQm9rpMYpJ837VWMs FTAFLXTfmYo0HBAxzaQsmeT wqTACp076J516q0zoQXNfli NzjMlYivgmq7kyD931WMWwz GVydzEyMjQwXHBhcGVyaDE1 RMCxJK3zrxvgNVJ9RLkxKBU nsnMjVPMsrIRtV3L7VkAwlP MiB1RvHFzsQQHhcqw4YnUhT j2nzFLpjPL3VDnyl2ags6gg lTBdDyv9LRKeViAmJzclNOv fb7Qtr5yxBKKyen8lJKT2aM IwkBwwg1M1mYCiFUNilGPex qJvBCMaMsR9PDedHB5sdw09 KYTwPRH4aq0opBAvuEzmgoY muMPqRNcdM9VeMSUmg770OM GeD8YbSTMxl0U7zyTnHzVvD KRhzRX2baM9QSHpHSa4aOTd mbA1sxOwhPCxP3ufiH5pMYq uYQ0irvaph3dpXGS5MVzkXJ IsbRZ4mqraNYyiVHVbLzH0k xAivIXxSQTktWvpLDtzg535 EZZ2ZiSdNUFrw7XcS0QnoMp oN45hmVsrT74pBZOdnUwnlN 9oxShveT1wDyYuVxVhHIpmW XJkXHBsYWluXGYwXGZzMjBc jCaalW3wGqIvWpQeRgfxKU3 qRGSzW7nnuNIaXYAzDWVgT8 glWaXbvQ3goKnoMKtkJvIjP fOcGryhWOCliwBfgg2tTGLu iwMbeeYhnPXbGZSvDbhqE6a 7j5AtN6lmy7ctG8vvxYZksJ pccGFyIFVuaXZlcnNpdHkgb 0UzWNU2MNOnYHIuyVPhcUZR mdKmZ1cdWCTux5XysR3zmPQ VTUB6sOJjlgFqUFkqRAe3DO ZOsFY1VHPknLW2t9xdMIZbP jG0FPONoClfDMEeYIH5SMhj K706yZasvYQpMHVrNCCyQJd zNYHnZFQkOdZehDziiP1wPt AcLvZhCnckMI6aOYFdN1lik ERmVJBuKEOiE4lcLwNmxM2a aFxmMVxjZjFcZnMxNlxpIEx dXGa5FLISaPM2WIVEUGC9Tk P0S5qmjCAaxjyjNGgxzzLjG HBhclxwYXJ9 LMP (test code = 0852683582) Educational Note (test code = 0196884855) h6oaoCAnMMEwm2biYMXplFJ uZzEwMzNcZnRuYmpcdWMxIH dgubXcTDzas9PrA4BiDLFvQ FxhbnNpXGRlZmxhbmcxMDMz ZYQ4snWkNUUqNYjrIIEaCAn qRp4qpTXcjTdrElScSQAna9 dfpuUCslzomQo1c7obFKKyK eZ8nVCtVAppH4vivpAyeMYa OUFsDEk6iY16CDAfnG9sjFU lBKwiwlRgFxB0AHvjTPTcGz I3GMEecHEzZYKtT8brJFKpQ JKcR3EuFW6mIhxoHfb5ZHT2 IDtccmVkMFxncmVlbjBcYmx 1IEDxD237JBZ6kPlmt5evCR U1ZYYfUKOvZyRqWp3xnSNkS 235TBLjDKHCIWXnoQn9FJHn quXeuhMfoPPTq530B636l6i iUEKxwbOpzIrSxxkln0bvC8 19XHBhcGVydzEyMjQwXHBhc LMtmXR2WWPvVW7vcvuhCFqf AHjdUYDobnU7PXWshEHcZ8M sHTViHA7rgsbwGAL8DHtdMQ PcYLZ5KpXaGAShp0Hwsjn6O dEvbw2alp34DUP6l1IgpFtx TSJ0RFE9XvQbAt6ixVFePBF wQG2mAqNfgBPwKKEmmd54qB yvFVmtllGweH6hXuUbTXSjc EKcSBAzVC4jrJDkUZAejE5u cmxjXHBnYnJkcmhlYWRccGd bpuHmZg8ouOtgEYZ7OVhxO0 hdmZ4cSeH1UBjvM7boeN0uJ Nf1HFyihJK0DZLhoW9iUQ2o oiptz2hqLAjhVUfhQWFnhwP 0maA0WHXwvMWpQ3IdsZ0sYS WnMM3vsztej4adGBL9FHynE KFxTOD1ZpNtKVGrt2Zuvmn3 IhNwg3TxaEMzRXoiN43qj14 8BSQlszYeP1jdjFGknglabG LjzsdnJDrrznZ3BPWzLWRxM WluXGYxXGZzMjJcbGFuZzEw MzNcaGljaFxmMVxkYmNoXGY bZLjcH9qbAcCxA6VmSTWzDe YmtMHYFXS4oWWztIUyxIMrx S9nbLQcBFBwZURyk8DyNAzg JXOtx3JrQSChrN4oZZQer0O qlRWsuQAnoSs9SSCixrZgcH ShhJ03giErQH1iTNXhEHAcY YErukDulDHip3FdRnUTzXWi yFZjkLVsTFIvCR3icF4pMCK pawZsONL0dYTuo3ygRAJoi8 WdOkibjFU6OW9lRZVlsOMmV M8rZ2I3wEKcLFBfBASdQSso JC1md9TgbOb2HWSaNTT1nMY qHaXzRtCneEcfawYySD0yxN bsNyDgzyTyEa5oaL95LEOiN D6kGZLjSMardFTfszUvPHLk cJ9yK3NzTKHlN37hMVEaZVL udV7qiF9rxfQlrsOnadQxg9 6yOU3fZDOsbY7erFncfB3pl mUgdGhlIGVmZmVjdCBvZiBm QVneNYItNTwyeTv0HRWsSNW 9oBSzXcEeAA28tbRoCZCgFT 90NFPyo1OzXNIuXYGsKI4rw fFkRRS2bgWvy07yuSy1ZCad kCYqdJ6nWMunbDHpfPQaZbU opHJvJAkyZUPkIP8nVTReSG 55IHVuZXhwbGFpbmVkIGNsa H8oG2RqIWQlO23uCZDbUUZy oY6izU8tuavfriTwDFDqgXA zcyBvZiBhbnkgUGFwIFRlc3 YhstTcnDw7ZhliwFPsukieY VxmczIyXGxhbmcxMDMzXGhp B4zsXtZeSRMhgXotINggw0K oXGYxXGZzMjJccGFyfX0= Embedded Images (test code = 3266544158) [facility] [id number] 12:23:00* Test Item Value Reference Range Interpretation Comme nts URINE CULTURE (test code = 630-4) > 100,000 CFU/mL mixed aerobic organisms - suggests endogenous microbial contamination [facility] [id number] 12:23:00* Test Item Value Reference Range Interpretation Comme nts URINE CULTURE (test code = 630-4) > 100,000 CFU/mL mixed aerobic organisms - suggests endogenous microbial contamination [facility] ClubGC & CHLAMYDIA AMPLIFIED [id number] 23:43:00* Test Item Value Reference Range Interpretation Comme nts Lab Interpretation (test cod e = 47264-4) Normal [facility] ClubGC & CHLAMYDIA AMPLIFIED [id number] 23:43:00* Test Item Value Reference Range Interpretation Comme nts Lab Interpretation (test cod e = 91312-3) Normal [facility] ClubRUBELLA SCREEN (ROSAURA) [id number] 16:17:00 * Test Item Value Reference Range Interpretation Comme [facility] Rubella screen IgG (test code = 9556842706) Positive Negative LUTHER (test code = LUTHER) Positive - Indicat es the patient was exposed to Rubella through infection or vaccination.Negative - Indicates the patient could be susceptible to Rubella infection.Equivocal - A second specimen should be sent. [facility] ClubVZV ANTIBODY [id number] 16:17:00* Test Item Value Reference Range Interpretation Comme [facility] VZV IgG antibody (test code = 58086-7) Positive Negative LUTHER (test code = LUTHER) Positive - Indicat es the patient was exposed to VZV through infection or vaccination.Negative - Indicates the patient could be susceptible to VZV infection.Equivocal - A second specimen should be sent for testing. [facility] ClubRUBELLA SCREEN (ROSAURA) [id number] 16:17:00 * Test Item Value Reference Range Interpretation Comme [facility] Rubella screen IgG (test code = 0839392051) Positive Negative LUTHER (test code = LUTHER) Positive - Indicat es the patient was exposed to Rubella through infection or vaccination.Negative - Indicates the patient could be susceptible to Rubella infection.Equivocal - A second specimen should be sent. [facility] ClubVZV ANTIBODY [id number] 16:17:00* Test Item Value Reference Range Interpretation Comme [facility] VZV IgG antibody (test code = 12115-6) Positive Negative LUTHER (test code = LUTHER) Positive - Indicat es the patient was exposed to VZV through infection or vaccination.Negative - Indicates the patient could be susceptible to VZV infection.Equivocal - A second specimen should be sent for testing. [facility] ONLY - SYPHILIS [id number] 14:51:00* Test Item Value Reference Range Interpretation Comme nts Syphilis IgG/IgM (test code = 30946-3) Non-reactive Non-reactive LUTHER (test code = LUTHER) Non-reactive - No serologic evidence of T. pallidum infection. Cannot exclude incubating or early syphilis. Submit a second specimen in 2-4 weeks if syphilis is clinically suspected.Equivocal - Further testing to follow.Reactive - Further testing to follow. Lab Interpretation (test code = 95485-4) Normal [facility] ONLY - SYPHILIS [id number] 14:51:00* Test Item Value Reference Range Interpretation Comme nts Syphilis IgG/IgM (test code = 33068-6) Non-reactive Non-reactive LUTHER (test code = LUTHER) Non-reactive - No serologic evidence of T. pallidum infection. Cannot exclude incubating or early syphilis. Submit a second specimen in 2-4 weeks if syphilis is clinically suspected.Equivocal - Further testing to follow.Reactive - Further testing to follow. Lab Interpretation (test code = 51851-6) Normal [facility] ClubANTIBODY TITER [id number] 11:22:09* Test Item Value Reference Range Interpretation Comme nts TITERED AB (test code = 1141) Ab Titered: Fya Performed at [facility] [address] Free: [phone] No. [id number] AB TITER (test code = 247) Antibody Titer: <1 Performed at [facility] - [address] Free: [phone] No. [id number] [facility] ClubANTIBODY TITER [id number] 11:22:09* Test Item Value Reference Range Interpretation Comme nts TITERED AB (test code = 1141) Ab Titered: Fya Performed at [facility] - [place] [address] Free: [phone] No. [id number] AB TITER (test code = 247) Antibody Titer: <1 Performed at [facility] - [address] Free: [phone] No. [id number] [facility] ClubANTIBODY TITER [id number] 11:22:06* Test Item Value Reference Range Interpretation Comme nts TITERED AB (test code = 1141) Ab Titered: K Performed at [facility] - [address] Free: [phone] No. [id number] AB TITER (test code = 247) Antibody Titer: <1 Performed at [facility] - [address] Free: [phone] No. [id number] [facility] ClubANTIBODY TITER [id number] 11:22:06* Test Item Value Reference Range Interpretation Comme nts TITERED AB (test code = 1141) Ab Titered: K Performed at [address] Free: [phone] No. [id number] AB TITER (test code = 247) Antibody Titer: <1 Performed at [facility] [address] Free: [phone] No. [id number] [facility] [id number] 10:41:26 ANTIBODY ZQEtnn-MxgUcbj-C Comment: Performed at [facility] [address] Free: [phone] No. [id number] [facility] 2019-01-27 10:41:26ANTIBODY LHWysv-OmxCbby-N Comment: Performed at [facility] - [address] Free: [phone] No. [id number] [facility] [id number] 10:41:26ANTIBODY YBFbxj-PqkAphz-W Comment: Performed at [facility] Services [facility] Blood [place] [phone] Free: [phone] No. [id number] [facility] [id number] 10:41:26ANTIBODY MSJkyd-IjxVegs-B Comment: Performed at [facility] Services [facility] Blood [address] [address] Free: [phone] No. [id number] [facility] CenterHCV [id number] 09:46:00 * Test Item Value Reference Range Interpretation Comme nts HCV Semi-Quantitative (test code = 71152-8) [facility] ClubHIV 1/2 AG-AB WITH [id number] 09:46:00* Test Item Value Reference Range Interpretation Comme nts HIV Semi-quantitative (test code = 49683-3) Negative Negative LUTHER (test code = LUTHER) Non-reactive for HIV-1 antigen and HIV-1/HIV-2 antibodies.?No laboratory evidence of HIV infection.?Repeat in 2-4 weeks if acute HIV infection is suspected. [facility] ClubHCV [id number] 09:46:00* Test Item Value Reference Range Interpretation Comme nts HCV Semi-Quantitative (test code = 08534-7) [facility] ClubHIV 1/2 AG-AB WITH [id number] 09:46:00* Test Item Value Reference Range Interpretation Comme nts HIV Semi-quantitative (test code = 74631-2) Negative Negative LUTHER (test code = LUTHER) Non-reactive for HIV-1 antigen and HIV-1/HIV-2 antibodies.?No laboratory evidence of HIV infection.?Repeat in 2-4 weeks if acute HIV infection is suspected. [facility] ClubANTIGEN TYPING [id number] 09:35:20* Test Item Value Reference Range Interpretation Comme nts ANTIGEN ID (test code = 1687) Leb Antigen Negative Performed at [facility] - [address] Free: [phone] No. [id number] ANTIGEN ID (test code = 62) M Antigen Positive Performed at [facility] - [address] Free: [phone] No. [id number] ANTIGEN ID (test code = 63) N Antigen Negative Performed at [facility] - [address] Free: [phone] No. [id number] ANTIGEN ID (test code = 64) Tg Antigen Positive Performed at [facility] Laboratory [facility] - [address] Free: [phone] No. [id number] ANTIGEN ID (test code = 1688) Fya Antigen Negative Performed at [facility] Laboratory [address] Free: [phone] No. [id number] [facility] ClubANTIGEN TYPING [id number] 09:35:20* Test Item Value Reference Range Interpretation Comme nts ANTIGEN ID (test code = 1687) Leb Antigen Negative Performed at [facility] Laboratory [address] Free: [phone] No. [id number] ANTIGEN ID (test code = 62) M Antigen Positive Performed at [facility] - [address] Free: [phone] No. [id number] ANTIGEN ID (test code = 63) N Antigen Negative Performed at [facility] - [address] Free: [phone] No. [id number] ANTIGEN ID (test code = 64) Tg Antigen Positive Performed at [facility] - [address] Free: [phone] No. [id number] ANTIGEN ID (test code = 1688) Fya Antigen Negative Performed at [facility] [address] Free: [phone] No. [id number] [facility] ClubHEPATITIS B SURFACE [id number] 09:30:00 * Test Item Value Reference Range Interpretation Comme nts HBsAg Semi-Quantitative (veronica t code = 5195-3) [facility] B SURFACE [id number] 09:30:00 * Test Item Value Reference Range Interpretation Comme nts HBsAg Semi-Quantitative (veronica t code = 5195-3) [facility] ClubANTIGEN TYPING [id number] 08:58:34* Test Item Value Reference Range Interpretation Comme nts ANTIGEN ID (test code = 1687) Fyb Antigen Positive Performed at [facility] - [address] Free: [phone] No. [id number] [facility] ClubANTIGEN TYPING [id number] 08:58:34* Test Item Value Reference Range Interpretation Comme nts ANTIGEN ID (test code = 1687) Fyb Antigen Positive Performed at [facility] [address] Free: [phone] No. [id number] [facility] ClubANTIGEN TYPING [id number] 08:49:20* Test Item Value Reference Range Interpretation Comme nts ANTIGEN ID (test code = 1687) Jkb Antigen Positive Performed at [facility] - [address] Free: [phone] No. [id number] ANTIGEN ID (test code = 62) P1 Antigen Positive Performed at [facility] - [address] Free: [phone] No. [id number] ANTIGEN ID (test code = 63) S Antigen Negative Performed at [facility] Services [address] [address] Free: [phone] No. [id number] ANTIGEN ID (test code = 64) s Antigen Positive Performed at [facility] Laboratory [address] Free: [phone] No. [id number] ANTIGEN ID (test code = 1688) e Antigen Positive Performed at [facility] [address] Free: [phone] No. [id number] [facility] ClubANTIGEN TYPING [id number] 08:49:20* Test Item Value Reference Range Interpretation Comme nts ANTIGEN ID (test code = 1687) Jkb Antigen Positive Performed at [facility] Laboratory [address] Free: [phone] No. [id number] ANTIGEN ID (test code = 62) P1 Antigen Positive Performed at [facility] Laboratory [address] Free: [phone] No. [id number] ANTIGEN ID (test code = 63) S Antigen Negative Performed at [address] Free: [phone] No. [id number] ANTIGEN ID (test code = 64) s Antigen Positive Performed at [facility] Laboratory [address] Free: [phone] No. [id number] ANTIGEN ID (test code = 1688) e Antigen Positive Performed at [address] Free: [phone] No. [id number] [facility] ClubANTIGEN TYPING [id number] 08:32:43* Test Item Value Reference Range Interpretation Comme nts ANTIGEN ID (test code = 1687) C Antigen Positive Performed at [facility] - [address] Free: [phone] No. [id number] ANTIGEN ID (test code = 62) c Antigen Positive Performed at [facility] - [address] Free: [phone] No. [id number] ANTIGEN ID (test code = 63) E Antigen Positive Performed at [facility] - [address] Free: [phone] No. [id number] ANTIGEN ID (test code = 64) K Antigen Negative Performed at [facility] - [address] Free: [phone] No. [id number] ANTIGEN ID (test code = 1688) Jka Antigen Positive Performed at [facility] - [address] Free: [phone] No. [id number] [facility] TYP[facility] [id number] 08:32:43* Test Item Value Reference Range Interpretation Comme nts ANTIGEN ID (test code = 1687) C Antigen Positive Performed at [facility] Laboratory Services - [address] Free: [phone] No. [id number] ANTIGEN ID (test code = 62) c Antigen Positive Performed at [facility] Laboratory Services - [address] Free: [phone] No. [id number] ANTIGEN ID (test code = 63) E Antigen Positive Performed at [facility] Laboratory Services - [address] Free: [phone] No. [id number] ANTIGEN ID (test code = 64) K Antigen Negative Performed at [facility] Laboratory Services - [address] Free: [phone] No. [id number] ANTIGEN ID (test code = 1688) Jka Antigen Positive Performed at [facility] Laboratory Services - [address] Free: [phone] No. [id number] [facility], BLOOD [id number] 07:33:05 * Test Item Value Reference Range Interpretation Comme nts ABO & RH (test code = 20) O POSITIVE Performed at [facility] - [address] Free: [phone] No. [id number] IAT (test code = 1185) Positive Performed at [facility] - [address] Free: [phone] No. [id number] [facility], BLOOD [id number] 07:33:05 * Test Item Value Reference Range Interpretation Comme nts ABO & RH (test code = 20) O POSITIVE Performed at [facility] - [address] Free: [phone] No. [id number] IAT (test code = 1185) Positive Performed at [facility] - [address] Free: [phone] No. [id number] [facility]GL[facility] H[facility] [id number] 04:06:00* Test Item Value Reference Range Interpretation Comme nts GLUC 1 HR (test code = 2848127844) 116 mg/dL 120-170 L Lab Interpretation (test cod e = 01437-3) Abnormal [facility] H[facility] [id number] 04:06:00* Test Item Value Reference Range Interpretation Comme nts GLUC 1 HR (test code = 2705948168) 116 mg/dL 120-170 L Lab Interpretation (test cod e = 15007-7) [facility]normal [facility] WITH [id number] 03:24:00* Test Item Value Reference Range Interpretation [...] 32.2 g/dL 31.6-35.1 RDW-SD (test code = 32327-8) 41.0 fL 39-49.9 RDW-CV (test code = 788-0) 13.2 % 12-15.5 PLT (test code = 777-3) See_Comment [Automated messa ge] The system which generated this result transmitted reference range: 166 - 358 10*3/?L. The reference range was not used to interpret this result as normal/abnormal. MPV (test code = 21399-2) 9.9 fL 9.5-12.9 NRBC/100 WBC (test code = 3083193029) See_Comment [Automated Viibar ssage] The system which generated this result transmitted reference range: 0.0 - 10.0 /100 WBCs. The reference range was not used to interpret this result as normal/abnormal. NRBC x10^3 (test code = 8514998732) <0.01 See_Comment [Automated messa ge] The system which generated this result transmitted reference range: 10*3/?L. The reference range was not used to interpret this result as normal/abnormal. GRAN MAT (NEUT) % (test code = 770-8) 73.4 % IMM GRAN % (test code = 4805497329) 0.50 % LYMPH % (test code = 736-9) 18.3 % MONO % (test code = 5905-5) 6.2 % EOS % (test code = 713-8) 1.1 % BASO % (test code = 706-2) 0.5 % GRAN MAT x10^3(ANC) (test code = 1543405880) 6.12 10*3/uL 1.88-7.09 IMM GRAN x10^3 (test code = 2384681703) 0.04 10*3/uL 0-0.06 LYMPH x10^3 (test code = 731-0) 1.53 10*3/uL 1.32-3.29 MONO x10^3 (test code = 742-7) 0.52 10*3/uL 0.33-0.92 EOS x10^3 (test code = 711-2) 0.09 10*3/uL 0.03-0.39 BASO x10^3 (test code = 704-7) 0.04 10*3/uL 0.01-0.07 Lab Interpretation (test code = 76227-4) Abnormal [facility] WITH [id number] 03:24:00* Test Item Value Reference Range Interpretation [...] 32.2 g/dL 31.6-35.1 RDW-SD (test code = 88509-2) 41.0 fL 39-49.9 RDW-CV (test code = 788-0) 13.2 % 12-15.5 PLT (test code = 777-3) See_Comment [Automated messa ge] The system which generated this result transmitted reference range: 166 - 358 10*3/?L. The reference range was not used to interpret this result as normal/abnormal. MPV (test code = 81750-5) 9.9 fL 9.5-12.9 NRBC/100 WBC (test code = 7469031560) See_Comment [Automated Viibar ssage] The system which generated this result transmitted reference range: 0.0 - 10.0 /100 WBCs. The reference range was not used to interpret this result as normal/abnormal. NRBC x10^3 (test code = 7695969215) <0.01 See_Comment [Automated messa ge] The system which generated this result transmitted reference range: 10*3/?L. The reference range was not used to interpret this result as normal/abnormal. GRAN MAT (NEUT) % (test code = 770-8) 73.4 % IMM GRAN % (test code = 9279427578) 0.50 % LYMPH % (test code = 736-9) 18.3 % MONO % (test code = 5905-5) 6.2 % EOS % (test code = 713-8) 1.1 % BASO % (test code = 706-2) 0.5 % GRAN MAT x10^3(ANC) (test code = 0862801443) 6.12 10*3/uL 1.88-7.09 IMM GRAN x10^3 (test code = 1500055310) 0.04 10*3/uL 0-0.06 LYMPH x10^3 (test code = 731-0) 1.53 10*3/uL 1.32-3.29 MONO x10^3 (test code = 742-7) 0.52 10*3/uL 0.33-0.92 EOS x10^3 (test code = 711-2) 0.09 10*3/uL 0.03-0.39 BASO x10^3 (test code = 704-7) 0.04 10*3/uL 0.01-0.07 Lab Interpretation (test code = 67409-4) Abnormal [facility] WAWI2784-27-17 15:27:00* Test Item Value Reference Range Interpretation Comme nts POCT PREG (test code = 1605) Positive On board controls acceptable with C Line (test code = 3574) Yes POCT PREG LOT # (test code = 3575) POCT PREG TEST DATE ( test code = 3576) [facility] URINALYSIS W/O SPECIFIC VMDKROJ1429-79-25 15:27:00* Test Item Value Reference Range Interpretation [...] = 3257) Neg Negative - Negati ve [facility] RNOI1404-57-03 15:27:00* Test Item Value Reference Range Interpretation Comme nts POCT PREG (test code = 1605) Positive On board controls acceptable with C Line (test code = 3574) Yes POCT PREG LOT # (test code = 3575) POCT PREG TEST DATE ( test code = 3576) [facility] URINALYSIS W/O SPECIFIC PEPPLWT4946-85-48 15:27:00* Test Item Value Reference Range Interpretation [...] = 3257) Neg Negative - Negati ve [facility] Notes Date/Time Note Provider Source 2023-12-08 12:15:00 2715-29-63N54:15:00 Images from the original note were not included.Venipuncture collection performed by clean technique on the left anticubitus. Total of 1 attempts were made. Slight pressure and a bandage/dressing were applied to the site(s). The patient experienced no complications. The following specimens were processed according to instructions and sent to [facility] laboratories per lab order on 12/08/2023:LT BLUESST 2REDLAV 1PPTDK GREEN (LiHep)DK GREEN (SodH)GRAYDK BLUE (K2)DK BLUE (S)ACDBlood CultureNIPT/NTD 93106-9Hupud WdbaLI9230-46-79I95:08:51Nurse NoteTXT1.2.840.285998.1.13.104.2.7.2 .852051|[id number] for patient nzlv07430-4Wvtvf NoteLNNARRATIVEFormatted C-CDA narrative text[address] OnouWof[id number] CXVHVAVQVKNYBQRLSCXHBL6040-26-94W34: 08:511.2.840.779417.1.72.3.15|1.2.84 0.595477.1.13.104.2.7.2.727879_21092 [address] [facility] 2023-09-17 10:12:45 3437-36-00S82:12:45Addended by: TONG CARLSON on: 09/17/2023 10:12 AMModules accepted: Orders 40265-4Vydjojjb UcmuwmrgAH5649-63-74Y52:12:45Addendraz lobo DocumentTXT1.2.840.856568.1.13.104.2 .7.2.903286|[id number] for patient cxor13342-8AgikAKQQNJYXYPFGisdfxvpi C-CDA narrative text[id number] IKJUYVVHYDNMZRKMGTXKNO1467-59-69E47: 12:451.2.840.136455.1.72.3.15|1.2.84 0.671550.1.13.104.2.7.2.727879_20434 [address] [facility] 2023-09-17 09:14:01 0763-27-11F13:14:01 Spoke with patient, states that she had IUD removed 09/08, started bleeding has had heavy bleeding since with clots. Soaking through pads/tampons approx q15-20 mins. C/o headache as well. Patient states that she didn't have cycles on IUD. Denies any other symptoms. Advised patient that it can be normal to have heavy bleeding after IUD removal especially after going so long without cycle and that it will take time for cycles to regulate. Spoke with provider, patient offered BC pills to help with heavy bleeding and lab order for cbc to check for anemia or she can monitor bleeding giving it time to regulate it self. Patient declined BC pills, going to monitor bleeding and do lab work. Patient informed to monitor bleeding if doesn't slow down or worsens give office a call or go to ER. Given ER precautions. Patient verbalized understanding.Tong Carlson RN 09/17/2023 9:20 AM 86878-4Qrseafbiw encounter VrmtVR2023-59-34Y84:20:57Telephone encounter NoteTXT1.2.840.789167.1.13.104.2.7.2 .493829|[id number] for patient xruf77723-0NfqkAKYBPYGNUDHJxtyhrkdq C-CDA narrative text[id number] CLRNYMRHLGCATVOUZXBYKM6799-94-08S97: 20:571.2.840.394050.1.72.3.15|1.2.84 0.920317.1.13.104.2.7.2.727879_20433 [address] [facility] 2023-09-17 08:47:15 5047-22-59B72:47:15 Patient states she had her IUD removed on 09/08. She states she started bleeding on and has been bleeding heavy with blood clots since. Nurse notified. 76486-0Kbteeuuwj encounter WmpjUT1420-59-91S24:49:05Telephone encounter NoteTXT1.2.840.668601.1.13.104.2.7.2 .393121|[id number] for patient lbno93732-0CbjlUTLBNILJCZIOdzncwmur C-CDA narrative qrsf62736036Hzphh S [address] FmpuIwlblrgyjEdrivwflgDCWF1055709769 LGKHYVVMYINKQCAFQKIBCY7328-86-01D01: 49:051.2.840.252858.1.72.3.15|1.2.84 0.794982.1.13.104.2.7.2.727879_20433 [address] Ninfa Mojica [facility] 2023-08-10 09:01:30 7014-53-49N37:01:30 Chief ComplaintPatient presents withDizzinessEar ProblemTingling sensation in both ears but worst in the right ear. Ringing of the ears.Talita Luu 79313-4Nqzfc YlfeQY7854-23-41A71:01:35Nurse NoteTXT1.2.840.300875.1.13.131.2.7.2 .903531|854201930KNXmvfcocve for patient wgft76345-9Slvgk NoteLNNARRATIVEFormatted C-CDA narrative [facility].PUPUKLSYZGFGORXPLN8131951401CWU F9800-99-32Z85:01:351.2.840.168973.1 .72.3.15|1.2.840.991831.1.13.131.2.7 .2.727879_395951744 [facility] 2021-05-30 13:38:00 U29103456571k86EQOF6XMwUuH3e6dg7CLDM mjROVv9oG8EKXc19voqmHxeJ5HaKmRZYuFg1 NWv49371-02-17U41:38:640733-0805 [facility] PATIENT NAME: TYRA RIBERA ADMIT DATE: 05/29/21ACCOUNT NO: [id number] ROOM NO: V.3028 AGE: 30 REPORT TYPE: DISCHARGE SUMMARY REPORT SEX: F DATE OF : [birth year]ADMITTING PHYSICIAN:Enrike Yeboah DO ATTENDING PHYSICIAN:Enrike Yeboah DO ADMISSION DATE: 05/29/2021ISCHARGE DATE: 05/30/2021 ADMISSION DIAGNOSIS: Morbid obesity. DISCHARGE DIAGNOSIS: Morbid obesity, status post Joy-en-Y gastric bypass. CONSULTANTS: Nutrition and dietary. PROCEDURE PERFORMED: Laparoscopic Joy-en-Y gastric bypass [100 cm Joy Limb]. DISPOSITION: Stable to discharge to home. MEDICATIONS: Please refer to [facility] for home and discharge medications. BRIEF HOSPITAL COURSE: Tyra Ribera is a 30-year-old female with severemorbid obesity (BMI greater than 50), who has undergone multidisciplinaryevaluation and cleared for Joy-en-Y gastric bypass. [facility] Please refer to operative note.Postoperatively, she was transferred to the third floor, surgical. Pain andnausea controlled. She did well. Postop day #1, she was in some pain. Weadjusted her pain medications. She ambulated, did better as the day went alongand complained of laparoscopic gas pain, which per nursing staff got better asthe day progressed. Her labs were reviewed, please refer to EHR for pertinentlabs and vital signs on the progress notes. Postop day #2, the patient was inbetter spirits. She still had some gas pain, felt like she has to pass flatus,but could not. Simethicone was prescribed and she had some relief. Pain isfelt better controlled. She was doing much better than yesterday, ambulating easier. She wanted to shower, she is in better spirits. She was cleared for discharge. DISCHARGE MEDICATIONS: Antiemetics and pain control were given. She has followup instructions. Nutrition saw her and reiterated the importanceof clinic diet instructions and postoperative diet instructions. All questionswere answered and she was cleared for discharge. Dictated By: Enrike Yeboah DO WT: DS:DAMIEN/JOSE A/HERNANDODD: 05/30/2021 13:38:05DT: 05/31/2021 02:26:04Conf#: [id number]/DID#: [id number] PATIENT NAME: TYRA RIBERA Authenticated and Edited by Enrike Yeboah DO On 06/01/21 2:30:04 PM at 0237 PATIENT NAME: TYRA RIBERA izmeqyr9553-38-24T26:26:00V.OMP20526 119-0023AVAvailable for patient bdzsCCVUPKIBPPATVT2478-74-69E80:37:[address] [facility] 2021-05-29 11:29:00 [id number] kgeY5jmAFsae69sTqh7GwoCwL6iu1AL/Xena Sb8k8986-78-22A08:29:571917-5316 [facility] PATIENT NAME: TYRA RIBERA ADMIT DATE: 05/29/21ACCOUNT NO: [id number] ROOM NO: .3028 AGE: 30 REPORT TYPE: PROGRESS NOTE SEX: F DATE OF : [birth year]ADMITTING PHYSICIAN:Enrike Yeboah DO ATTENDING PHYSICIAN:Enrike Yeboah DO DATE: PROGRESS NOTE SUBJECTIVE: The patient complained of some discomfort and generalized pain,postoperative pain. She is tolerating a clear liquid diet. She has ambulated.She has not passed gas. Discussed with day nurse and she has been medicated forpain. Denies any nausea or vomiting, but overall not quite ready for dischargehome quite yet. OBJECTIVE:VITAL SIGNS: Stable. She is afebrile, T-current is 36.3 degree Celsius, pulse77, respirations 16, BP is 116/75.GENERAL: No acute distress.HEENT: Normocephalic, atraumatic. Pupils equal, react to light.HEART: S1 and S2.LUNGS: Clear, nonlabored.ABDOMEN:. Dressing is clean, dry, and intact. Bowel sounds hypoactive, soft.Postoperative incisional pain.EXTREMITIES: No clubbing, cyanosis, or edema.NEUROLOGIC: No focal deficits. LABORATORY DATA: Please refer to EHR for current labs. White count is 9.9,hemoglobin 13. Electrolytes are unremarkable. Blood glucose 82. IMPRESSION:1. Postop day #1, gastric bypass.2. For morbid obesity. PLAN: Continue with thiamine/banana bag. Continue with pain p.o. and IV painmedication. Continue clear liquid diet for about two to three days. Thepatient is not quite ready for discharge. She is struggling with pain control.She is ambulating, but not as much as expected. We will keep for one more day and evaluate with serial exams. Dictated By: Enrike Yeboah DO WT: PN:VROSSANA/JOSE A/HERNANDODD: 05/29/2021 11:29:07DT: 05/29/2021 11:49:18Conf#: [id number]/DID#: [id number] PATIENT NAME: TYRA RIBERA Authenticated and Edited by Enrike Yeboah DO On 06/01/21 2:29:11 PM at 0231 PATIENT NAME: TYRA RIBERA Mevb6193-27-31X03:49:00V.[id number] -0078AVAvailable for patient zazzQJAMEOZJKVMCKU9164-10-06I51:31:[address] [facility] 2021-05-28 20:08:00 [id number] vi/ZU+EHFEIY0UbJ7QgdEz+kRyTwW2eV1qei +Fre4127-60-40E96:08:216005-3459 [facility] PATIENT NAME: TYRA RIBERA ADMIT DATE: 05/29/21ACCOUNT NO: [id number] ROOM NO: [facility] AGE: 30 REPORT TYPE: OPERATIVE REPORT SEX: F DATE OF : [birth year]ADMITTING PHYSICIAN:Enrike Yeboah DO ATTENDING PHYSICIAN:Enrike Yeboah DO OPERATION DATE: PREOPERATIVE DIAGNOSIS: Morbid obesity (body mass index greater than 50). POSTOPERATIVE DIAGNOSIS: Morbid obesity (body mass index greater than 50). PROCEDURE PERFORMED: Laparoscopic Joy-en-Y gastric bypass (100 cm Joy limb). SURGEON: Enrike Yeboah DO GLUE MOUNTER OPERATOR: Ash Larson. ANESTHESIA: General plus Marcaine. ESTIMATED BLOOD LOSS: 40 mL. FLUIDS: 2 liters. URINE OUTPUT: 400 mL. SPECIMENS: None. DISPOSITION: Hemodynamically stable to recovery. DRAINS: None. INDICATIONS: This patient is a 30-year-old female who has undergone themultidisciplinary evaluation for bariatric operation. She has been cleared bymyself, dietitian and mental health. Labs performed. She had an EGD performedand she has been approved by her insurance for Joy-en-Y gastric bypass. Risks,benefits, and possible complications were explained to the patient onpreoperative visit. She had a pre-assessment anesthesia visit as well.Sedation is pertinent, H and P has been updated and confirmed. She weighs 300 lbs today BMI: 51.5 PROCEDURE IN DETAIL: The patient was brought to the operating room andtransferred to the operating room table. Monitoring devices were applied. Shewas placed under general endotracheal anesthesia. She was positioned, preppedand draped in manner for laparoscopic Joy-en-Y gastric bypass in lithotomyposition, so split the legs and was secured. Tilt test performed. Universaltime-out taken, everyone involved in the case agreed on the patient and theprocedure to be performed. Landmarks were identified preoperative xiphoid andbelly button. All the measurements are appropriately done. Site of first entry PATIENT NAME: TYRA RIBERA was to the left of the umbilicus. I did this because the patient had a priormidline incision for a lap cholecystectomy and I felt there would be adhesionsthere, I was correct. Entry with a 4 mm insufflating port and a 0-degreelaparoscope with some resistance and I saw some omentum, so I aborted and 1 wentto the left upper quadrant (Velasquez's point). I was able to find much suhail here,insufflated to a pressure of 15 mmHg. I inspected that site and saw someadhesions. I placed all the ports under direct visualization, which included a15-mm port and a 12-mm right quadrant and a 5-mm right upper quadrant ports. A15-mm port was in the left upper quadrant. I took down those adhesions sharplywith ultrasonic device and the Harmonic device. I was pleased with the tipdown dissection. I took several pictures to show the adhesions, well adhesed uterus to the abdominal wall. I then placed my 12-mm camera port site of adhesiolysis under direct visualization. Usual position was placed. A 5-mm laparoscope was requested, 30-degree angle. I later switched to increase to 10-mm 30-degree bariatric lens scope. First thing we did was to identify the greater omentum. I was impressed with the small nature and size of it. She obviously does not still have fats intraabdominally. I divided this sharply with the ultrasonic device for an antecolic passageway. I then identified ligament of Treitz. I counted out approximately 40 cm of jejunum and divided it sharply with the linear powered Ethicon stapler with a white load. The 100 cm of Joy limb was then counted, the jejunum was placed side by side. A jejunojejunostomy bjbv-du-aqqh fashion was created, stapled. Byron enterotomy was closed with a suture (2-0 silk and a staple). Mesenteric defect was closed with a running suture of 3-0 silk. I inspected the Joy limb several times and was pleased with the way it lay out and the ease with which it reached the stomach. Step #2 was to create the gastrojejunostomy. Anesthesia helped us by passingthe sizing balloon and helped me to size out the gastric pouch. The 20 mL ofair was put in the balloon and this helped deleniate the gastric pouch. I thendissected at the lesser curvature, exposing the posterior. I divided the pars flaccida fat and the selective vagotomy was performed. Posterior stomach was readily identified. Blue load on the stapler was requested and used for a horizontal fire. I then made a gastrostomy and prepared this for delivery of the spike of my EEA circular stapler. The fascial defect at the 15-port site was sequentially dilated with Hegar dilators. The spike was delivered through the band passer through my gastrostomy to the gastric pouch. I closed the gastrostomy with 1 fire of blue load. The next portion of the case was spent creating the gastric pouch, anesthesia passed the sizing balloon to help us protect the GE junction. I took down the adhesions from the angle of His. I then fired 3 consecutive fires vertically of the blue load stapler and this helped to completely separate the remnant stomach from the gastric pouch. Jono was removed and passed off the field. I then identified the Joy limb. The devascularized portion of the Joy limb was incised sharply with the Harmonic device. The powered EEA Circular stapling machine was then delivered into the abdominal cavity and into the byron-enterotomy. We advanced the spike. I then the female portion and the male portion together on the 25-mm EEA stapler. I fired to create a side- to-end stapled G-J anastomosis. I reinforced the anastomosis with a 3-0 Vicryl; of the proximal end of the Joy limb to the medial aspect of the pouch. This concluded the surgery. Anesthesia removed the bougie and I proceeded to perform a leak test. EGD and tower was requested and delivered. I went to the foot of the bed. I PATIENT NAME: TYRA RIBERA performed a screening endoscopy. My second pharmacist assistant placed a soft atraumatic boewl clamp on the Joy limb as we submerged the anastomosis in saline. I advanced my gastroscope into the gastric pouch and to the anastomosis and into the joy limb, completely distending it. There was no bubbling, which suggested no overt leak. I decompressed the upper GI Tract and removed the EGD. We used ICG lights, took some photos and completed the gastroscopy. Subsequently, I rescrubbed and I re-introduced myself up to the sterile field. Luz Marina liver retractor was removed under direct visualization. Fascial defect of the 15 port site was closed with 0 Vicryl and suture passer x2. Closing counts were all correct and this concluded the case. Abdomen was desufflated. All wounds were irrigated with Betadine- soaked saline. All incisions were closed with 4- 0 Monocryl and Dermabond. Luo catheter which was placed early prior to the case was now removed. The patient was recovered from general anesthesia and transferred to postanesthesia care unit in stable condition. Dictated By: Enrike Yeboah DO WT: OP:V.CONSTANCE/JOSE A/HERNANDODD: 05/28/2021 20:08:23DT: 05/28/2021 23:57:57Conf#: [id number]/DID#: [id number] Authenticated and Edited by Enrike Yeboah DO On 05/30/21 11:04:38 AM at 1107 PATIENT NAME: TYRA RIBERA dplzzz3411-04-18C93:57:00V.[id number] [id number] for patient ajlwDMDFUXKMPPOYMV9633-57-95L62:07:[address] [facility] 2021-04-04 16:50:00 [id number] WP6hIOAkgAyLy6aI6pTGvFK4hEV4dEU69+xW iAtU3049-09-85P04:50:556837-7543 [facility] PATIENT NAME: TYRA RIBERA ADMIT DATE: 04/04/21ACCOUNT NO: [id number] ROOM NO: AGE: 30 REPORT TYPE: ENDOSCOPY REPORT SEX: F DATE OF : [birth year]ADMITTING PHYSICIAN: ATTENDING PHYSICIAN:Enrike Yeboah I DO Patient Name: Tyra Ribera Attending MD: Flash Dozier Date: 04/04/2021 4:50 PM Number: [id number] Date of : 1990 Procedure: Upper GI endoscopyPre Procedure Diagnosis: HeartburnAssistants: Enrike Yeboah MDAnesthesia: Monitored Anesthesia Care Procedure: The benefits, risks, and alternatives to the procedure were discussed and informed consent was obtained from the patient. I've assesed the patient on this date and reviewed the medical history, drug history, and previous anesthesia experience. After obtaining informed consent, the scope was passed under direct vision. Throughout the procedure, the patient's blood pressure, pulse, and oxygen saturations were monitored continuously.s were monitored continuously. The was introduced through the mouth, and advanced to the second part of duodenum. The patient tolerated the procedure well.Post Procedure Findings: No gross lesions were noted in the second portion of the duodenum. This was biopsied with a cold forceps for Helicobacter pylori testing. Estimated blood loss was minimal. The esophagus was normal. The stomach was normal. The examined duodenum was normal.Complications: No immediate complications.Estimated Blood Loss: Estimated blood loss was minimal.Post Procedure Diagnosis: - No gross lesions in the second portion of the duodenum. Biopsied. - Normal esophagus. - Normal stomach. - Normal examined duodenum. - Normal esophagus, stomach, and examined duodenum. - GERD.Recommendation: - Written discharge instructions were provided to the patient. Dr. Enrike Yeboah PATIENT NAME: TYRA RIBERA Enrike Yeboah MD04/04/2021 5:50:09 PMThis report has been signed electronically.Number of Addenda: 0 Note Initiated On: 04/04/2021 4:50 PMProcedure Code(s): --- Professional --- 56519, Esophagogastroduodenoscopy, flexible, transoral; with biopsy, single or multiple CPT copyright 2020 [employer]. All rights reserved. The codes documented in this report are preliminary and upon development analyst review may be revised to meet current compliance requirements.Scope In:Scope Out:Provation {[id number]}.p df ProVation FT PDF at 1750 PATIENT NAME: TYRA RIBERA ieglnug3444-68-89I59:50:00V.[id number] for patient gldaMUEBGDBWNNDECV7441-66-06O98:50:[address] [facility] 2021-02-21 16:30:00 [id number] EE3z72hvSSaDmaZoQmpKbUDlk06+NDpC9GZX oQXC7793-48-98D71:30:604034-[address] [address] PATIENT NAME: TYRA RIBERA ADMIT DATE: 02/21/21ACCOUNT NO: [id number] ROOM NO: AGE: 30 REPORT TYPE: OPERATIVE REPORT SEX: F ADMITTING PHYSICIAN: ATTENDING PHYSICIAN: Philly Montemayor MD OPERATION DATE: 02/21/2021 PREOPERATIVE DIAGNOSES:1. Menorrhagia.2. Fibroid uterus.3. Cervical stenosis.4. Status post multiple C-sections. POSTOPERATIVE DIAGNOSES:1. Menorrhagia.2. Fibroid uterus.3. Cervical stenosis.4. Status post multiple C-sections. PROCEDURES PERFORMED: Diagnostic hysteroscopy, insertion of the IUD (Liletta). SURGEON: Philly Montemayor MD. GLUE MOUNTER OPERATOR: ANESTHESIA: General with LMA. SPECIMENS: No specimens. COMPLICATIONS: None. DRAINS: None. CONDITION: Stable. IMPLANTS Liletta IUD. INDICATIONS: The patient is a 300+ pound morbidly obese patient withmenorrhagia and fibroid uterus. After endometrial sampling was performed andthere was no atypia or malignancy, she was recommended to have an IUD insertion. I tried this in the office. Due to the high position of the cervix as well jerardo body habitus and her scars, the anteflexion of the uterus, unableto do this procedure, so consented her to come to the hospital for diagnostichysteroscopy to confirm that the cavity was undistorted and the direction of thecanal was confirmed, minimizing the risk of perforation and complications. Bleeding, infection, and perforation of the uterus were all reviewed includinganesthesia complications, consented and brought to the hospital. PATIENT NAME: TYRA RIBERA PROCEDURE IN DETAIL: After informed consent was verified, she was taken back tothe OR, placed in supine position on the operating table. General anesthesiawas given. She was placed in dorsal lithotomy position using Arie stirrups. Vulva, vagina, and perineum were prepped and draped in sterile fashion. Speculum placed to expose the cervix. Anterior lip was grasped with Allisclamps. Diagnostic hysteroscope was introduced through the cervical canal intothe uterine cavity and the speculum had to be removed in order for me to insertinside the extremely anteflexed and high cavity. Once the cavity was entered,it was undistorted. No intracavitary masses. Both tubal ostia were wellvisualized. Directly with the hysteroscope, the uterus was sounded to thefundus. It was 11.5 cm. Once the scope was removed, Liletta was inserted afterdilating the cervix to 16-Spanish without any problems. Then, the device wasdeployed without any glitches, removed smoothly, confirmed to be the tip of thedilator, checked to make sure that this was not pulled back into the cervix. Once this was confirmed, the strings were cut at 4 cm. Instruments wereremoved. Instrument, needle, and sponge counts were done and were correct atthe end of case. The patient tolerated the procedure well. She was recoveredfrom anesthesia and taken to PACU in stable condition, Toradol was given forpain control. She will follow up with me in 1 month for string check. Allprecautions have been given. Dictated By: Philly Montemayor MD WT: OP:L.CONSTANCE/AVERY/HERNANDODD: 02/21/2021 16:30:33DT: 02/21/2021 18:23:55Conf#: [id number]/DID#: [id number] Authenticated by Philly Montemayor MD On 03/28/2021 04:26:53 PM at 0426 PATIENT NAME: TYRA RIBERA [id number] for patient [id number]:2 3 [facility] 2021-02-21 15:37:00 [id number]:37:[address] [facility] ([facility])Brief Op NoteREPORT#:[id number] REPORT STATUS: SignedDATE:02/21/21 TIME:153 PATIENT: TYRA RIBERA UNIT #: [id number]#: [id number] ROOM/BED:: 90 AGE: 30 SEX: F ATTEND: Philly Montemayor MDA AUTHOR: Philly Montemayor MD * ALL edits or amendments must be made on the electronic/computer document * Op/Inv Proc Note - BriefPre-procedure diagnosis:menorrhagis, controlPost-procedure diagnosis: same as pre procedure dxProcedures performed:diagnostic hysteroscopy IUD Liletta insertionPrimary Surgeon:Duanessistant(s): none (weatheral)Anesthesia: general anesthesiaFindings:IUD positioned well, sounding length 11.5cm, inserted to 11cm, austin cervix, significantly AF AV uterus and cavity, no masses, no cavity distortion, cervix elongatedComplications: noneEstimated blood loss in ml's: noneSpecimens removed/altered: noneWound class: clean-contaminatedDisposition: plan to D/C homeDictation number:[id number] at 1630 RPT #: [id number] OF REPORT OPOperative [id number]:37:[id number] for patient [id number]:31:1 1 [facility]
[2023-12-26] MEDS ORDERED: HYDROCODONE/APAP 7.5/325 MG TAB ONE (23:35)
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
[2023-12-27] MEDS ORDERED: DIAZEPAM 5 MG TABLET ONE (00:44)
[2023-12-27 01:08] VITALS: BP 121/84; TEMP 98.4; O2SAT 100
--- NOTE | 2023-12-27 19:05 | RAD REPORT ---
EXAM DESCRIPTION: XR Left Forearm, 2 Views CLINICAL HISTORY: The patient is 32 years old and is Female; PAIN TECHNIQUE: Frontal and lateral views of the left forearm. COMPARISON: No relevant prior studies available. FINDINGS: BONES/JOINTS: Unremarkable. No acute fracture. No dislocation. SOFT TISSUES: Unremarkable. IMPRESSION: Normal left forearm radiographs. Electronically signed by: Lidia Newton MD 12/27/2023 12:30 AM CDT RP Due to temporary technical issues with the PACS/Fluency reporting system, reports are being signed by the in house radiologists without review as a courtesy to insure prompt reporting. The interpreting radiologist is fully responsible for the content of the report.
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
== END 2023-12-27 00:49 | disposition home or self-care (01) ==
LOC: ER 23:16
DX: S16.1XXA Strain of muscle, fascia and tendon at neck level, initial encounter (principal); S20.212A Contusion of left front wall of thorax, initial encounter; M79.632 Pain in left forearm; V49.40XA Driver injured in collision with unspecified motor vehicles in traffic accident, initial encounter; Z88.0 Allergy status to penicillin; Z91.040 Latex allergy status
CPT/HCPCS: 71045

== ENCOUNTER 2024-03-07 14:15 | Emergency (ER) | payer OTHER ==
--- OUTSIDE RECORDS SUMMARY | 2024-03-07 14:23 | XMS REPORT | Continuity of Care Document ---
Author Name Unknown Address [address] [facility]. [address] th[address] Address [address] [facility] 1 [address] [place] [address] Care Team Providers Care Pumper Gager Name Role Phone ADALI RIBERA Primary Care Physician CARLI Shabazz Attending Clinician CARLI Shabazz Attending Clinician Malihavai lable Mira, Huan Green Attending Clinician Unavailable MD MYLA Attending Clinician Unavailab CECIL Sanchez Attending Clinician Unavailab le Doctor Unassigned, [place] Attending Clinician U navailable ENG Attending Clinician [...] ble Sheng MD, Allen F Attending Clinician [phone] CHRISTINA THOMPSON Attending Clinician Unavailable Faculty, Huan Chong Attending Clinician Kwame Mace MD, Mike Kinney Attending Clinician [phone] Risk, Fvl-Kykrr-Cy/High Attending Clinician Unav maurice Grajeda [facility] [place]ree BENITES Attending Clinician Rehana Hinds Attending Clinician [phone] Randolph Szymanski Attending Clinician [phone] CHRISTINA THOMPSON Admitting Clinician Unavailable CARLI GABRIEL Admitting Clinician Miranda gonzales [id number] Admitting Clinician UnavailKulwinder Szymanskionodane Reyes Admitting Clinician Unavail able Rachel Maki MD, Destini Admitting Clinician + Payers Payer Name Policy Type Policy Number Effective Date Expirati on Date Source [employer] MEDICAID [id number] 2019 00:00:00 [facility] STATE [id number] 2023 00:00:00 [facility] GENERIC [id number] 2020 00:00:00 2020 00:00:00 [facility] [id number] 2023 00:00:00 [employer] 2 [id number] 2023 00:00:00 Problems Condition Name Condition Details Condition Category Status Onset Date Resolution Date Last Treatment Date Treating Clinician Comments Source Menorrhagi a with regular cycle Menorrhagi a with regular cycle Disease Active 6- 00:00: 00 [facility] Enlarged uterus Enlarged uterus Disease Active 6- 00:00: 00 [facility] Sinus infection Sinus infection Disease Active 9- 00:00: 00 [facility] Breakthrou gh bleeding on Nexplanon Breakthrou gh bleeding on Nexplanon Disease Active 8-13 00:00: 00 [facility] Nexplanon insertion Nexplanon insertion Disease Active 0 7-30 00:00: 00 [facility] Nexplanon removal Nexplanon removal Disease Active 0 730 00:00: 00 [facility] Other general counseling and advice for contracept richar management Other general counseling and advice for contracept richar management Disease Active 20200 7-23 00:00: 00 [facility] Morbid obesity with body mass index of 50 or higher Morbid obesity with body mass index of 50 or higher Disease Active 20200 3-10 00:00: 00 [facility] Gestationa l hypertensi on, antepartum Gestationa l hypertensi on, antepartum Disease Active 20200 3-10 00:00: 00 [facility] Morbid obesity with BMI of 45.0-49.9, adult Morbid obesity with BMI of 45.0-49.9, adult Disease Active 20200 3-10 00:00: 00 [facility] Obesity in Obesity in Disease Active 20190 7-17 00:00: 00 [facility] Tobacco use during Tobacco use during Disease Active 20190 7-17 00:00: 00 [facility] Tobacco use Tobacco use Disease Active 20190 7-17 00:00: 00 [facility] Tobacco use Tobacco use Disease Active 20190 7-17 00:00: 00 [facility] care and examinatio n of lactating mother care and examinatio n of lactating mother Disease Resolve d 2019-0 4-01 00:00: 00 2020-02-02 00:00:00 2020-02-02 10:01:05 [facility] 37 weeks gestation of 37 weeks gestation of Disease Resolve d 2019-0 3-10 00:00: 00 2019-10-12 00:00:00 2019-10-12 09:56:06 [facility] URI (upper respirator y infection) URI (upper respirator y infection) Disease Resolve d 2019-1 2-30 00:00: 00 2019-10-12 00:00:00 2019-10-12 09:54:37 [facility] Generalize d body aches Generalize d body aches Disease Resolve d 2018-07 00:00: 00 2019-10-12 00:00:00 2019-10-12 09:56:00 [facility] Influenza B Influenza B Disease Resolve d 2018-07 00:00: 00 2019-10-12 00:00:00 2019-10-12 09:55:44 [facility] Screening, , isoimmuniz ation Screening, , isoimmuniz ation Disease Resolve d 2018-07 007 00:00: 00 2019-10-12 00:00:00 2019-10-12 09:54:50 [facility] BMI 50.0-59.9, adult BMI 50.0-59.9, adult Disease Resolve d 2018-07 007 00:00: 00 2019-10-12 00:00:00 2019-10-12 09:56:01 [facility] Supervisio n of high-risk Supervisio n of high-risk Disease Resolve d 01-26 00:00: 00 2019-10-12 00:00:00 2019-10-12 09:54:48 [facility] Multiparit y Multiparit y Disease Resolve d 01-26 00:00: 00 2019-10-12 00:00:00 2019-10-12 09:55:30 [facility] History of section History of section Disease Resolve d 01-26 00:00: 00 2019-10-12 00:00:00 2019-10-12 09:55:45 Overview: X2 pending ROR [facility] Morbid obesity Morbid obesity Disease Resolve d 01-26 00:00: 00 2019-10-12 00:00:00 2019-10-12 09:55:36 [facility] Chest pain Chest pain Disease Resolve d 2018-07 00:00: 00 2019-07-11 00:00:00 2019-07-11 22:08:58 [facility] Allergies, Adverse Reactions, Alerts Allergy Name Allergy Type Status Severity Reaction(s) Onset Date Inactive Date Treating Clinician Comments Source [facility]GREDI Active Other-Cmnt 09-08 00:00: 00 [facility] NSAIDS (NON-RANJIT ROIDAL ANTI-INF LAMMATOR Y DRUG) Drug Class Active Other-Cmnt 2- 00:00: 00 [facility] Latex Propensi ty to adverse reaction s Active Other - See comments 2- 00:00: 00 [facility] Nsaids (Non-Ranjit roidal Anti-Inf lammator y Drug) Propensi ty to adverse reaction s Active Other - See comments 2 00:00: 00 [facility] Latex Propensi ty to adverse reaction s Active Contact Dermatitis 1- 00:00: 00 burning Christine Seybold - Externa l Nonstero idal anti-inf lammator y drug [Other] Propensi ty to adverse reaction s Active 2022-07 0- 00:00: 00 Hx of bariatric surgery and cannot take this. Christine Gastelumold - Externa l Penicill ins Propensi ty to adverse reaction s Active 2022-07 0-09 00:00: 00 Christine Gastelumold - Externa l Penicill ins DA Active U 0 8-11 00:00: 00 [facility] Penicill ins DA Active U VOMITING 0 8-11 00:00: 00 [facility] [place] latex DA Active U SWELLING 0 8-11 00:00: 00 [facility] [place] latex DA Active U 0 8-11 00:00: 00 [facility] Penicill in Propensi ty to adverse reaction s Active Nausea and/or Vomiting 01-26 00:00: 00 [facility] Penicill in Propensi ty to adverse reaction s Active Nausea and/or Vomiting 01-26 00:00: 00 [facility] PENICILL IN DRUG INGREDI Active N/V 01-26 00:00: 00 [facility] Social History Social Habit Start Date Stop Date Quantity Comments Source ASSERTION 2019-01-13 00:00:00 [facility] History of tobacco use 2007-01-26 00:00:00 Cigarette Smoker [facility] History SDOH Alcohol Binge [facility] Exposure to SARS-CoV-2 (event) Not sure [facility] SDOH Alcohol Std Drinks [facility] Alcoholic beverage intake 2024-01-07 00:00:00 2024-01-07 00:00:00 Ex-drinker (finding) [facility] Tobacco use and exposure 2023-12-08 00:00:00 2023-12-08 00:00:00 Smokeless tobacco non-user [facility] Cigarettes smoked current (pack per day) - Reported 2023-12-08 00:00:00 2023-12-08 00:00:00 [facility] Cigarette pack-years 2023-12-08 00:00:00 2023-12-08 00:00:00 [facility] Tobacco Comment 2023-09-08 00:00:00 2023-09-08 00:00:00 1 pack a day [facility] Alcohol intake 2023-09-08 00:00:00 2023-09-08 00:00:00 Ex-drinker (finding) [facility] History of Social function 2019-11-15 00:00:00 2019-11-15 00:00:00 [facility] History SDOH Alcohol Frequency 2019-01-26 00:00:00 2019-01-26 00:00:00 1 [facility] Sex Assigned At 1990 00:00:00 1990 00:00:00 Christine Jacobson - Janine Smoking Status Start Date Stop Date Source Smokes tobacco daily 2023-12-08 00:00:00 [facility] Medications Ordered Medication Name Filled Medication Name Start Date Stop Date Current Medication? Ordering Clinician Indication Dosage Frequency Signature (SIG) Comments Components Source miSOPROStoL 200 mcg tablet 01-06 00:00: 00 Yes [id number] Take one tablet the night before IUD insertion procedure and take one tablet the morning of the IUD insertion procedure. This is not for abortive treatment; patient will have IUD insertion. [facility] Tizanidine HCl 4 MG oral Tablet 2022-07 00:00: 00 Yes [id number] 4mg Q.25D Take 1 tablet (4 mg total) by mouth every 6 hours as needed for muscle spasms. Christine tyler Gabapentin 100 MG oral Capsule 2022-07 0- 00:00: 00 Yes [id number] 100mg Take 1 capsule (100 mg total) by mouth 3 times daily. Christine tyler Meclizine HCl 25 MG oral Tablet 2022-07 0- 00:00: 00 Yes [id number] 25mg Q.[id number] 3D Take 1 tablet (25 mg total) by mouth 3 times daily as needed. Christine tyler Pregabalin 50 MG oral Capsule 8-21 00:00: 00 04-20 00:00 :00 No Christine tyler Phentermine HCl 37.5 MG oral Tablet 8-15 00:00: 00 04-20 00:00 :00 No Christine tyler levonorgest rel-ethinyl estradiol (SRONYX) 0.1-20 mg-mcg per tablet 1- 00:00: 00 09-08 00:00 :00 No [id number] 1{tbl} Take 1 tablet by mouth daily. [facility] azithromyci n (ZITHROMAX Z-THA) 250 mg tablet 9-25 00:00: 00 09-08 00:00 :00 No [id number] 250mg Take 1 tablet by mouth daily. Take 500 mg day 1, then 250 mg days 2 to 5. [facility] estradiol 2 mg tablet 8-13 00:00: 00 03-16 04:59 :00 No [id number] 2mg Take 1 tablet by mouth daily for 21 days. [facility] etonogestre l (NEXPLANON) implant 68 mg 730 15:30: 00 02-08 14:28 :00 No 68mg [facility] medroxyPROG ESTERone (DEPO-PROVE RA) injection 150 mg 5-05 15:30: 00 09-08 16:16 :56 No [id number] 150mg Univer s [facility] benzocaine- menthol (CEPACOL SORE THROAT (DEANNA-MEN)) lozenge 1 Lozenge 09-21 17:42: 16 Yes 1{lozen ge} 1 Lozenge, Oral, Q4HPRN, Starting Denisse 09/22/19 at 1242, Until Discontinu ed, Routine, Sore throat [facility] vitamin w/FA tablet 09-21 00:00: 00 Yes [id number] 1{tbl} Take 1 tablet by mouth daily. May substitute for what is in stock and covered by patient plan [facility] docusate calcium 240 mg capsule 09-21 00:00: 09-08 00:00 :00 No [id number] 240mg Take 1 capsule by mouth once daily as needed for Constipati on. May substitute for what is in stock and covered by patient plan [facility] ferrous sulfate 325 mg (65 mg iron) tablet 09-21 00:00: 00 09-08 00:00 :00 No [id number] 325mg Take 1 tablet by mouth 2 (two) times daily. May substitute for what is in stock and covered by patient plan [facility] ibuprofen 600 mg tablet 09-21 00:00: 00 09-08 00:00 :00 No [id number] 600mg Take 1 tablet by mouth every 6 (six) hours as needed (Pain). Take with food or milk. [facility] vitamin w/FA tablet 09-21 00:00: 00 09-08 00:00 :00 No [id number] 1{tbl} Take 1 tablet by mouth daily. May substitute for what is in stock and covered by patient plan [facility] HYDROcodone -acetaminop hen 5-325 mg tablet 09-21 00:00: 00 09-29 04:59 :00 No [id number] 1{tbl} Take 1 tablet by mouth every 6 (six) hours as needed (Pain scale > 4) for up to 7 days. Do not exceed 3 grams of acetaminop hen in 24 hours. [facility] rho(D) immune globulin (RHOGAM) syringe 300 mcg 09-20 02:59: 46 Yes 300ug 300 mcg, Intramuscu lar, ONCE, For 1 dose, Conditiona l, Routine [facility] human papillomav vac,9-aide(P F) (GARDASIL-9 ) syringe 0.5 mL 09-20 02:59: 41 Yes .5mL 0.5 mL, Intramuscu lar, ONCE-PRIOR TO DISCHARGE, 1 dose, Starting Thu09/20/19 at 2158, Until Discontinu ed, Routine, Give vaccine prior to discharge [facility] HYDROcodone -acetaminop hen (NORCO 5) 5-325 mg tablet 2 tablet 09-20 02:59: 41 Yes 2{tbl} 2 tablet, Oral, Q6HPRN, Starting Thu09/20/19 at 2158, Until Discontinu ed, Routine, Pain (scale 7-10), If uncontroll ed by Ibuprofen [facility] HYDROcodone -acetaminop hen (NORCO 5) 5-325 mg tablet 1 tablet 09-20 02:59: 41 Yes 1{tbl} 1 tablet, Oral, Q6HPRN, Starting Thu09/20/19 at 2158, Until Discontinu ed, Routine, Pain (scale 4-6), If uncontroll ed by Ibuprofen [facility] ibuprofen (IBU) tablet 600 mg 09-20 02:59: 41 Yes 600mg 600 mg, Oral, Q6HPRN, Starting Thu09/20/19 at 2158, Until Discontinu ed, Routine, Pain (scale 1-3) [facility] ondansetron (ZOFRAN (PF)) injection 4 mg 09-20 02:59: 41 Yes 4mg 4 mg, Slow IV Push, Q8HPRN, Starting Thu09/20/19 at 2158, Until Discontinu ed, Routine, Nausea and Vomiting (N/V) [facility] simethicone (GAS RELIEF (SIMETHICON E)) chewable tablet 160 mg 09-20 02:59: 41 Yes 160mg 160 mg, Oral, PC+HSPRN, Starting Thu09/20/19 at 2158, Until Discontinu ed, Routine, Gas [facility] magnesium hydroxide (MILK OF MAGNESIA) 400 mg/5 mL suspension 30 mL 09-20 02:59: 41 Yes 30mL 30 mL, Oral, QDAILYPRN, Starting Thu09/20/19 at 2158, Until Discontinu ed, Routine, Constipati on [facility] diphenhydrA MINE-0.9 % sod.chlr (BENADRYL) 25 mg/50 mL piggyback 25 mg 09-20 02:59: 40 Yes 25mg 25 mg, IV Piggyback, Administer over 30 Minutes, Q6HPRN, 1 dose, Starting Thu09/20/19 at 2158, Until Discontinu ed, Routine, Itching [facility] diphenhydrA MINE (BENADRYL) tablet 25 mg 09-20 02:59: 40 Yes 25mg 25 mg, Oral, Q6HPRN, Starting Thu09/20/19 at 2158, Until Discontinu ed, Routine, Sleep, Itching [facility] bisacodyL (DULCOLAX) suppository 10 mg 09-20 02:59: 40 Yes 10mg 10 mg, Rectal, QDAILYPRN, Starting Thu09/20/19 at 2158, Until Discontinu ed, Routine, Constipati on [facility] docusate calcium (SURFAK) capsule 240 mg 09-20 02:59: 40 Yes 240mg 240 mg, Oral, QDAILYPRN, Starting Thu09/20/19 at 2158, Until Discontinu ed, Routine, Constipati on [facility] naloxone (NARCAN) injection 0.4 mg 09-20 01:12: 35 09-22 01:11 :35 No .4mg 0.4 mg, Slow IV Push, PRN - SEE INSTRUCTIO NS, Starting 09/20/19 at 2011, Until Denisse 09/22/19 at 2010, Routine, Analgesia Recovery, PACU [facility] ketorolac (TORADOL) injection 30 mg 09-20 01:12: 35 09-20 01:45 :00 No 30mg 30 mg, Slow IV Push, PRN, 1 dose, Starting 09/20/19 at 2012, Until 09/20/19 at 2044, Routine, Pain (scale 7-10), PACU
Fa culty member approving Restricted medication : JOSÉ MIGUEL LEE [facility] Investigati onal Drug- tranexamic acid 1 gram or placebo in NS 50 mL 09-19 21:45: 00 09-20 02:59 :47 No 1g 1 g, IV Infusion, ONCE, 1 dose, 09/20/19 at 1645
Pr incipal investigat or: ERLINDA VALENZUELA [facility] metoclopram emile HCl (REGLAN) 10 mg in NaCl 0.9% (NS) piggyback 09-19 17:30: 00 09-19 17:54 :00 No 10mg 10 mg, IV Piggyback, ONCE, 1 dose, 09/20/19 at 1230, 50 mL [facility] famotidine (PEPCID (PF)) injection 20 mg 09-19 17:30: 00 09-19 18:26 :00 No 20mg 20 mg, IV Piggyback, ONCE, 1 dose, 09/20/19 at 1230, Routine [facility] gentamicin 40 mg/mL 480 mg in NaCl 0.9% (NS) 250 mL IV infusion 09-19 16:26: 09 09-19 22:43 :00 No 5mg/kg 480 mg (rounded from 470 mg = 5 mg/kg ?94 kg Adjusted weight), IV Infusion, O.R. HOLDING ONCE, 1 dose, Starting 09/20/19 at 1126, Until Discontinu ed, 250 mL
Reas on for Anti-Infec tive: Surgical Prophylaxi s
Surgi daisy Prophylaxi s: APPLICATION DEVELOPMENT SPECIALIST
Duration of therapy: within 24 hours of surgery [facility] lactated ringers IV infusion 1,000 mL 09-19 16:00: 00 09-20 02:59 :47 No 1000mL at 125 mL/hr, 1,000 mL, IV Infusion, CONTINUOUS , Starting 09/20/19 at 1100, Until 09/20/19 at 2159, Routine [facility] acetaminoph en (TYLENOL) tablet 650 mg 09-19 16:00: 00 09-19 21:41 :00 No 650mg 650 mg, Oral, ONCE, 1 dose, 09/20/19 at 1100, Routine [facility] sodium citrate-cit shana acid (BICITRA) 500-334 mg/5 mL solution 30 mL 09-19 15:53: 42 09-19 22:23 :00 No 30mL 30 mL, Oral, PRE-PROCED URE ONCE, 1 dose, Starting 09/20/19 at 1053, Until Denisse 09/22/19 at 2359, Routine, Surgery/Pr ocedure [facility] guaiFENesin 100 mg/5 mL solution 2018-07 2 00:00: 00 09-21 00:00 :00 No [id number] 100mg Take 5 mL by mouth every 4 (four) hours. [facility] guaifenesin (ROBITUSSIN CHEST CONGESTION ORAL) 7-17 15:31: 10 Yes Take by mouth. [facility] Immunizations Ordered Immunization Name Filled Immunization Name Date Status Comments Source TDAP (ADACEL) VACCINE 2019-07-21 00:00:00 Completed [facility] TDAP (ADACEL) VACCINE 2019-07-21 00:00:00 Completed [facility] TDAP (ADACEL) VACCINE 2019-07-21 00:00:00 Completed [facility] TDAP (ADACEL) VACCINE 2019-07-21 00:00:00 Completed [facility] TDAP (ADACEL) VACCINE 2019-07-21 00:00:00 Completed [facility] TDAP (ADACEL) VACCINE 2019-07-21 00:00:00 Completed [facility] TDAP (ADACEL) VACCINE 2019-07-21 00:00:00 Completed [facility] TDAP (ADACEL) VACCINE 2019-07-21 00:00:00 Completed [facility] TDAP (ADACEL) VACCINE 2019-07-21 00:00:00 Completed [facility] TDAP (ADACEL) VACCINE 2019-07-21 00:00:00 Completed [facility] TDAP (ADACEL) VACCINE 2019-07-21 00:00:00 Completed [facility] TDAP (ADACEL) VACCINE 2019-07-21 00:00:00 Completed [facility] TDAP (ADACEL) VACCINE 2019-07-21 00:00:00 Completed [facility] TDAP (ADACEL) VACCINE 2019-07-21 00:00:00 Completed [facility] TDAP (ADACEL) VACCINE 2019-07-21 00:00:00 Completed [facility] TDAP (ADACEL) VACCINE 2019-07-21 00:00:00 Completed [facility] TDAP (ADACEL) VACCINE 2019-07-21 00:00:00 Completed [facility] TDAP (ADACEL) VACCINE 2019-07-21 00:00:00 Completed [facility] TDAP (ADACEL) VACCINE 2019-07-21 00:00:00 Completed [facility] TDAP (ADACEL) VACCINE 2019-07-21 00:00:00 Completed [facility] TDAP (ADACEL) VACCINE 2019-07-21 00:00:00 Completed [facility] TDAP (ADACEL) VACCINE 2019-07-21 00:00:00 Completed [facility] TDAP (ADACEL) VACCINE 2019-07-21 00:00:00 Completed [facility] TDAP (ADACEL) VACCINE 2019-07-21 00:00:00 Completed [facility] TDAP (ADACEL) VACCINE 2019-07-21 00:00:00 Completed [facility] TDAP (ADACEL) VACCINE 2019-07-21 00:00:00 Completed [facility] TDAP (ADACEL) VACCINE 2019-07-21 00:00:00 Completed [facility] TDAP (ADACEL) VACCINE 2019-07-21 00:00:00 Completed [facility] TDAP (ADACEL) VACCINE 2019-07-21 00:00:00 Completed [facility] TDAP (ADACEL) VACCINE 2019-07-21 00:00:00 Completed [facility] TDAP (ADACEL) VACCINE 2019-07-21 00:00:00 Completed [facility] TDAP (ADACEL) VACCINE 2019-07-21 00:00:00 Completed [facility] TDAP (ADACEL) VACCINE 2019-07-21 00:00:00 Completed [facility] TDAP (ADACEL) VACCINE 2019-07-21 00:00:00 Completed [facility] TDAP (ADACEL) VACCINE 2019-07-21 00:00:00 Completed [facility] TDAP (ADACEL) VACCINE 2019-07-21 00:00:00 Completed [facility] TDAP (ADACEL) VACCINE 2019-07-21 00:00:00 Completed [facility] TDAP (ADACEL) VACCINE Unknown Completed [facility] TDAP (ADACEL) VACCINE Unknown Completed [facility] TDAP (ADACEL) VACCINE Unknown Completed [facility] TDAP (ADACEL) VACCINE Unknown Completed [facility] TDAP (ADACEL) VACCINE Unknown Completed [facility] TDAP (ADACEL) VACCINE Unknown Completed [facility] TDAP (ADACEL) VACCINE Unknown Completed [facility] TDAP (ADACEL) VACCINE Unknown Completed [facility] TDAP (ADACEL) VACCINE Unknown Completed [facility] TDAP (ADACEL) VACCINE Unknown Completed [facility] Vital Signs Vital Name Observation Time Observation Value Comments S ource Systolic blood pressure 2024-01-07 18:06:00 107 mm[Hg] [facility] Diastolic blood pressure 2024-01-07 18:06:00 74 mm[Hg] [facility] Heart rate 2024-01-07 18:06:00 95 /min [facility] Body temperature 2024-01-07 18:06:00 36.61 Qian [facility] Respiratory rate 2024-01-07 18:06:00 16 /min [facility] Body height 2024-01-07 18:06:[address] [facility] Body weight 2024-01-07 18:06:[address] [facility] BMI 2024-01-07 18:06:00 35.31 kg/m2 [facility] Oxygen saturation in Arterial blood by Pulse oximetry 2024-01-07 18:06:00 97 /min [facility] Systolic blood pressure 2023-12-08 14:49:00 102 mm[Hg] [facility] Diastolic blood pressure 2023-12-08 14:49:00 76 mm[Hg] [facility] Heart rate 2023-12-08 14:49:00 76 /min [facility] Body temperature 2023-12-08 14:49:00 36.72 Qian [facility] Respiratory rate 2023-12-08 14:49:00 18 /min [facility] Body height 2023-12-08 14:49:[address] [facility] Body weight 2023-12-08 14:49:[address] [facility] BMI 2023-12-08 14:49:00 35.09 kg/m2 [facility] Systolic blood pressure 2023-09-08 15:37:00 105 mm[Hg] [facility] Diastolic blood pressure 2023-09-08 15:37:00 65 mm[Hg] [facility] Heart rate 2023-09-08 15:37:00 73 /min [facility] Body temperature 2023-09-08 15:37:00 36.94 Qian [facility] Respiratory rate 2023-09-08 15:37:00 16 /min [facility] Body height 2023-09-08 15:37:[address] [facility] Body weight 2023-09-08 15:37:[address] [facility] BMI 2023-09-08 15:37:00 34.67 kg/m2 [facility] Oxygen saturation in Arterial blood by Pulse oximetry 2023-09-08 15:37:00 98 /min [facility] Systolic blood pressure 2023-04-20 21:09:00 118 mm[Hg] Christine Seybo ld - External Diastolic blood pressure 2023-04-20 21:09:00 74 mm[Hg] Christine Rebolledo ld - External Heart rate 2023-04-20 21:09:00 88 /min Greg Jacobson - External Body temperature 2023-04-20 21:09:00 36.78 Qian Christine Jacobson - External Respiratory rate 2023-04-20 21:09:00 18 /min Christine Jacobson - External Body height 2023-04-20 21:09:00 160 cm Neetu salazar Seybold - External Body weight 2023-04-20 21:09:00 89.018 kg Neetu salazar Seybold - External BMI 2023-04-20 21:09:00 34.76 kg/m2 Neetu salazar Seybmarcio - External Oxygen saturation in Arterial blood by Pulse oximetry 2023-04-20 21:09:00 98 /min Christine Rebolledo ld - External Systolic blood pressure 2020-08-09 15:08:00 127 mm[Hg] [facility] Diastolic blood pressure 2020-08-09 15:08:00 80 mm[Hg] [facility] Heart rate 2020-08-09 15:08:00 112 /min [facility] Body temperature 2020-08-09 15:08:00 36.33 Qian [facility] Respiratory rate 2020-08-09 15:08:00 16 /min [facility] Body height 2020-08-09 15:08:[address] [facility] Body weight 2020-08-09 15:08:[address] [facility] BMI 2020-08-09 15:08:00 47.97 kg/m2 [facility] Systolic blood pressure 2020-08-09 15:08:00 127 mm[Hg] [facility] Diastolic blood pressure 2020-08-09 15:08:00 80 mm[Hg] [facility] Heart rate 2020-08-09 15:08:00 112 /min [facility] Body temperature 2020-08-09 15:08:00 36.33 Qian [facility] Respiratory rate 2020-08-09 15:08:00 16 /min [facility] Body height 2020-08-09 15:08:00 164.6 cm [facility] Body weight 2020-08-09 15:08:00 129.956 kg [facility] BMI 2020-08-09 15:08:00 47.97 kg/m2 [facility] Systolic blood pressure 2020-04-06 13:20:00 115 mm[Hg] [facility] Diastolic blood pressure 2020-04-06 13:20:00 75 mm[Hg] [facility] Heart rate 2020-04-06 13:20:00 71 /min [facility] Body temperature 2020-04-06 13:20:00 36.78 Qian [facility] Respiratory rate 2020-04-06 13:20:00 16 /min [facility] Body height 2020-04-06 13:20:00 162.6 cm [facility] Body weight 2020-04-06 13:20:00 127.325 kg [facility] BMI 2020-04-06 13:20:00 48.18 kg/m2 [facility] Systolic blood pressure 2020-02-23 13:24:00 122 mm[Hg] [facility] Diastolic blood pressure 2020-02-23 13:24:00 71 mm[Hg] [facility] Heart rate 2020-02-23 13:24:00 64 /min [facility] Body temperature 2020-02-23 13:24:00 36.61 Qian [facility] Respiratory rate 2020-02-23 13:24:00 16 /min [facility] Body height 2020-02-23 13:24:00 162.6 cm [facility] Body weight 2020-02-23 13:24:00 127.574 kg [facility] BMI 2020-02-23 13:24:00 48.28 kg/m2 [facility] Systolic blood pressure 2020-02-09 13:45:00 106 mm[Hg] [facility] Diastolic blood pressure 2020-02-09 13:45:00 75 mm[Hg] [facility] Heart rate 2020-02-09 13:45:00 83 /min [facility] Body temperature 2020-02-09 13:45:00 36.44 Qian [facility] Respiratory rate 2020-02-09 13:45:00 16 /min [facility] Body height 2020-02-09 13:45:00 162.6 cm [facility] Body weight 2020-02-09 13:45:00 129.36 kg [facility] BMI 2020-02-09 13:45:00 48.95 kg/m2 [facility] Systolic blood pressure 2020-02-02 14:20:00 132 mm[Hg] [facility] Diastolic blood pressure 2020-02-02 14:20:00 82 mm[Hg] [facility] Heart rate 2020-02-02 14:20:00 72 /min [facility] Body temperature 2020-02-02 14:20:00 36.67 Qian [facility] Respiratory rate 2020-02-02 14:20:00 16 /min [facility] Body height 2020-02-02 14:20:00 162.6 cm [facility] Body weight 2020-02-02 14:20:00 131.118 kg [facility] BMI 2020-02-02 14:20:00 49.62 kg/m2 [facility] Systolic blood pressure 2019-11-15 14:00:00 116 mm[Hg] [facility] Diastolic blood pressure 2019-11-15 14:00:00 75 mm[Hg] [facility] Heart rate 2019-11-15 14:00:00 76 /min [facility] Body temperature 2019-11-15 14:00:00 36.89 Qian [facility] Respiratory rate 2019-11-15 14:00:00 16 /min [facility] Body height 2019-11-15 14:00:00 162.6 cm [facility] Body weight 2019-11-15 14:00:00 135.739 kg [facility] BMI 2019-11-15 14:00:00 51.37 kg/m2 [facility] Systolic blood pressure 2019-09-27 16:12:00 121 mm[Hg] [facility] Diastolic blood pressure 2019-09-27 16:12:00 83 mm[Hg] [facility] Heart rate 2019-09-27 16:12:00 86 /min [facility] Body temperature 2019-09-27 16:12:00 36.44 Qian [facility] Respiratory rate 2019-09-27 16:12:00 16 /min [facility] Body height 2019-09-27 16:12:00 162.6 cm [facility] Body weight 2019-09-27 16:12:[address] [facility] BMI 2019-09-27 16:12:00 54.83 kg/m2 [facility] Systolic blood pressure 2019-09-22 19:44:00 117 mm[Hg] [facility] Diastolic blood pressure 2019-09-22 19:44:00 75 mm[Hg] [facility] Heart rate 2019-09-22 19:44:00 95 /min [facility] Body temperature 2019-09-22 19:44:00 36.78 Qian [facility] Respiratory rate 2019-09-22 19:44:00 18 /min [facility] Oxygen saturation in Arterial blood by Pulse oximetry 2019-09-22 19:44:00 98 /min [facility] Body height 2019-09-20 15:41:[address] [facility] Body weight 2019-09-20 15:41:[address] [facility] BMI 2019-09-20 15:41:00 57.85 kg/m2 [facility] Systolic blood pressure 2019-09-14 14:16:00 134 mm[Hg] [facility] Diastolic blood pressure 2019-09-14 14:16:00 89 mm[Hg] [facility] Heart rate 2019-09-14 14:16:00 87 /min [facility] Body temperature 2019-09-14 14:16:00 36.56 Qian [facility] Respiratory rate 2019-09-14 14:16:00 16 /min [facility] Body height 2019-09-14 14:16:00 162.6 cm [facility] Body weight 2019-09-14 14:16:00 149.29 kg [facility] BMI 2019-09-14 14:16:00 56.49 kg/m2 [facility] Systolic blood pressure 2019-09-08 15:34:00 131 mm[Hg] [facility] Diastolic blood pressure 2019-09-08 15:34:00 83 mm[Hg] [facility] Heart rate 2019-09-08 15:34:00 85 /min [facility] Body temperature 2019-09-08 15:34:00 36.11 Qian [facility] Respiratory rate 2019-09-08 15:34:00 16 /min [facility] Body height 2019-09-08 15:34:00 162.6 cm [facility] Body weight 2019-09-08 15:34:00 149.007 kg [facility] BMI 2019-09-08 15:34:00 56.39 kg/m2 [facility] Systolic blood pressure 2019-09-01 14:31:00 92 mm[Hg] [facility] Diastolic blood pressure 2019-09-01 14:31:00 64 mm[Hg] [facility] Heart rate 2019-09-01 14:25:00 81 /min [facility] Body temperature 2019-09-01 14:25:00 36.22 Qian [facility] Respiratory rate 2019-09-01 14:25:00 16 /min [facility] Body height 2019-09-01 14:25:00 162.6 cm [facility] Body weight 2019-09-01 14:25:00 147.589 kg [facility] BMI 2019-09-01 14:25:00 55.85 kg/m2 [facility] Systolic blood pressure 2019-08-17 17:31:00 118 mm[Hg] [facility] Diastolic blood pressure 2019-08-17 17:31:00 74 mm[Hg] [facility] Heart rate 2019-08-17 17:20:00 120 /min [facility] Body temperature 2019-08-17 17:20:00 36.67 Qian [facility] Respiratory rate 2019-08-17 17:20:00 16 /min [facility] Body height 2019-08-17 17:20:00 162.6 cm [facility] Body weight 2019-08-17 17:20:00 147.476 kg [facility] BMI 2019-08-17 17:20:00 55.81 kg/m2 [facility] Systolic blood pressure 2019-08-04 15:33:00 137 mm[Hg] [facility] Diastolic blood pressure 2019-08-04 15:33:00 90 mm[Hg] [facility] Heart rate 2019-08-04 15:33:00 92 /min [facility] Body temperature 2019-08-04 15:33:00 36.83 Qian [facility] Respiratory rate 2019-08-04 15:33:00 16 /min [facility] Body height 2019-08-04 15:33:[address] [facility] Body weight 2019-08-04 15:33:[address] [facility] BMI 2019-08-04 15:33:00 54.76 kg/m2 [facility] Systolic blood pressure 2019-03-21 14:31:00 130 mm[Hg] [facility] Diastolic blood pressure 2019-03-21 14:31:00 80 mm[Hg] [facility] Heart rate 2019-03-21 14:31:00 89 /min [facility] Body temperature 2019-03-21 14:31:00 36.39 Qian [facility] Respiratory rate 2019-03-21 14:31:00 16 /min [facility] Body weight 2019-03-21 14:31:[address] [facility] BMI 2019-03-21 14:31:00 52.25 kg/m2 [facility] Systolic blood pressure 2019-02-24 15:04:00 128 mm[Hg] [facility] Diastolic blood pressure 2019-02-24 15:04:00 80 mm[Hg] [facility] Heart rate 2019-02-24 15:04:00 75 /min [facility] Body temperature 2019-02-24 15:04:00 36.61 Qian [facility] Respiratory rate 2019-02-24 15:04:00 18 /min [facility] Body height 2019-02-24 15:04:[address] [facility] Body weight 2019-02-24 15:04:[address] [facility] BMI 2019-02-24 15:04:00 52.42 kg/m2 [facility] Systolic blood pressure 2019-01-26 15:20:00 114 mm[Hg] [facility] Diastolic blood pressure 2019-01-26 15:20:00 62 mm[Hg] [facility] Heart rate 2019-01-26 15:15:00 117 /min [facility] Body temperature 2019-01-26 15:15:00 36.94 Qian [facility] Respiratory rate 2019-01-26 15:15:00 16 /min [facility] Body height 2019-01-26 15:15:[address] [facility] Body weight 2019-01-26 15:15:[address] [facility] BMI 2019-01-26 15:15:00 51.69 kg/m2 [facility] Procedures Procedure Date / Time Performed Performing Clinician Source ASSIGNMENT OF BENEFITS 2023-09-08 15:18:21 Docto r Unassigned, [place] [facility] [id number] 2021-05-28 00:00:00 EKHOB [facility] DISMISSAL OF PATIENT CORRESPONDENCE 2020-08-09 06:01:00 Doctor Unassigned, [place] [facility] POCT TEST 2020-02-09 13:59:00 Yogesh Godwin [facility] POCT TEST 2020-02-02 14:21:00 Yogesh Godwin [facility] ASSIGNMENT OF BENEFITS 2020-02-02 13:54:27 Docto r Unassigned, [place] [facility] POCT TEST 2019-11-15 14:06:00 Reina Ruano [facility] CBC WITH DIFFERENTIAL 2019-09-21 07:51:00 Marta Dee [facility] VENOUS CORD GAS 2019-09-20 23:55:00 [facility] 2019-09-20 22:13:00 [facility] URINALYSIS 2019-09-20 16:33:00 [facility] PROTEIN CREAT RATIO URINE RANDOM 2019-09-20 16:33:00 Jesse [facility] SGOT (ASPARTATE AMINO TRANSFER) 2019-09-20 16:32:00 [facility] CREATININE 2019-09-20 16:32:00 [facility] ALANINE AMINO TRANSFERASE(SGPT 2019-09-20 16:32:00 [facility] LACTATE DEHYDROGENASE 2019-09-20 16:32:00 Jesse [facility] URIC ACID 2019-09-20 16:32:00 [facility] CBC WITH DIFFERENTIAL 2019-09-20 16:32:00 [facility] B SURFACE ANTIGEN 2019-09-20 16:32:00 Jesse [facility] GALV ONLY - SYPHILIS IGG/IGM 2019-09-20 16:32:00 [facility] PANEL IDENTIFICATION 2019-09-20 15:54:00 Christine Brady October [facility] HB ABO GROUPING 2019-09-20 15:54:00 Alexandrea Brady October [facility] RHO (D) IMMUNE GLOBULIN 2019-09-20 15:54:00 Marta Hill [facility] HOSPITAL ADMISSION 2019-09-20 05:01:00 Doctor Un assigned, [place] [facility] POCT URINALYSIS 2019-09-14 14:17:00 Lindy Godwin [facility] POCT URINALYSIS 2019-09-08 15:35:00 Lindy Godwin [facility] POCT URINALYSIS 2019-09-01 14:27:00 Lindy Godwin [facility] PANEL IDENTIFICATION 2019-08-04 15:42:00 Nestor Godwin [facility] HB ABO GROUPING 2019-08-04 15:42:00 Lindy Godwin [facility] ANTIBODY TITER INTERPS 2019-08-04 15:42:00 Leroy Godwin [facility] POCT URINALYSIS W/O SPECIFIC GRAVITY 2019-08-04 15:38:00 Lindy Godwin [facility] POCT URINALYSIS 2019-03-21 14:33:00 Lindy Godwin [facility] PANEL IDENTIFICATION 2019-02-24 15:22:00 Rehana Hinds [facility] WORKUP, BLOOD BANK 2019-02-24 15:22:00 Rehana Hinds [facility] ANTIBODY TITER INTERPS 2019-02-24 15:22:00 Nallely Hinds Demetra [facility] POCT URINALYSIS 2019-02-24 15:07:00 Lindy Godwin [facility] URINE CULTURE 2019-01-26 16:35:00 Lindy Godwin [facility] GC & CHLAMYDIA AMPLIFIED ASSAY 2019-01-26 16:35:00 Lindy Godwin [facility] LAB ONLY PAP SMEAR-LIQUID BASED 2019-01-26 16:35:00 Lindy Godwin [facility] PAP SMEAR-LIQUID BASED-CP 2019-01-26 16:35:00 Lindy Godwin [facility] GLUCOSE 1 HOUR POST PRANDIAL 2019-01-26 16:23:00 Lindy Godwin [facility] CBC WITH DIFFERENTIAL 2019-01-26 16:23:00 Gavin Godwin [facility] RUBELLA SCREEN IGG 2019-01-26 16:23:00 Philip Godwin [facility] VZV ANTIBODY SCREEN 2019-01-26 16:23:00 Yogesh Godwin [facility] HEPATITIS B SURFACE ANTIGEN 2019-01-26 16:23:00 Lnidy Godwin [facility] HCV ANTIBODY 2019-01-26 16:23:00 Lindy Godwin [facility] ANTIGEN TYPING PATIENT 2019-01-26 16:23:00 Leroy Godwin [facility] PANEL IDENTIFICATION 2019-01-26 16:23:00 Nestor Godwin [facility] WORKUP, BLOOD BANK 2019-01-26 16:23:00 Lindy Godwin [facility] ANTIBODY TITER INTERPS 2019-01-26 16:23:00 Leroy Godwin [facility] HIV 1/2 AG-AB WITH REFLEX 2019-01-26 16:23:00 Lindy Godwin [facility] GALV ONLY - SYPHILIS IGG/IGM 2019-01-26 16:23:00 Lindy Godwin [facility] POCT TEST 2019-01-26 15:27:00 Yogesh Godwin [facility] POCT URINALYSIS W/O SPECIFIC GRAVITY 2019-01-26 15:27:00 Lindy Godwin [facility] Encounters Start Date/Time End Date/Time Encounter Type Admission Type Attending [facility] Care Facility Care Department Encounter ID Source 2021-05-09 13:32:45 Outpatient P [facility] MCKENNA [id number] [facility] 2024-01-19 08:15:00 2024-01-19 08:15:00 Outpatient R SUTTNO-SANDRA S, CARLI SUTTON-SANDRA S, CARLI [facility] [id number] [facility] 2024-01-07 13:00:00 2024-01-07 13:16:03 Outpatient R SUTTON-SANDRA S, CARLI SUTTON-SANDRA S, CARLI [facility] [id number] [facility] 2024-01-07 13:00:00 2024-01-07 13:16:03 Office Visit Syeda Paredessol [facility] 1.2840.114 350.1.13.10 4.2.7.2.686 [id number] [facility] 2023-12-21 11:43:36 2023-12-21 23:59:00 Outpatient R FRANCO Mojica, [facility]LI [facility] [id number] [facility] 2023-12-21 11:00:00 2023-12-21 23:59:00 Hospital Encounter Syeda Paredessol [facility] 1.2.840.114 350.1.13.10 4.2.7.2.686 [id number] [facility] 2023-12-08 12:15:00 2023-12-08 12:30:00 Cake Winder Visit Lab, [place]uan [place] [facility] 1.2.840.114 350.1.13.10 4.2.7.2.686 [id number] [facility] 2023-12-08 10:00:00 2023-12-08 10:24:51 Outpatient R [facility]AN[facility]jica[facility] [id number] 2023-12-08 10:00:00 2023-12-08 10:24:51 Office Visit Syeda Paredessol [facility] 1.2.840.114 350.1.13.10 4.2.7.2.686 [id number] [facility] 2023-11-13 11:45:00 2023-11-13 11:45:00 Outpatient CHRISTINE RIBEIRO [id number] Christine Jacobson 2023-11-13 00:00:00 2023-11-13 00:00:00 Outpatient MD CHRISTINE CÁRDENAS [id number] [facility] 2023-10-29 11:30:00 2023-10-29 11:30:00 Outpatient R SUTTON-SANDRA S, CARLI SUTTON-SANDRA S, CARLI [facility] [id number] [facility] 2023-10-27 14:45:00 2023-10-27 14:45:00 Outpatient CHRISTINE RIBEIRO [id number] [facility] 2023-10-27 00:00:00 2023-10-27 00:00:00 Outpatient CECIL PETTIT [id number] [facility] 2023-10-06 00:00:00 2023-10-06 00:00:00 Outpatient CECIL PETTIT [id number] [facility] 2023-09-17 00:00:00 2023-09-17 00:00:00 Telephone Franco mojica [facility] 1..840.114 350.1.13.10 4.2.7.2.686 [id number] [facility] 2023-09-14 00:00:00 2023-09-14 00:00:00 Outpatient CECIL PETTIT [id number] [facility] 2023-09-09 00:00:00 2023-09-09 00:00:00 Outpatient CECIL PETTIT [id number] [facility] 2023-09-08 09:30:00 2023-09-08 10:05:10 Outpatient R SUTTON-SANDRA S, CARLI SUTTON-SANDRA S, [facility] [id number] [facility] 2023-09-08 09:30:00 2023-09-08 10:05:10 Office Visit Sutton-Sandra s [facility] 1..840.114 350.1.13.10 4.2.7.2.686 [id number] [facility] 2023-09-08 00:00:00 2023-09-08 00:00:00 Orders Only Doctor Unassigned, [place] [facility] 1.2.840.114 350.1.13.10 4.2.7.2.686 [id number] [facility] 2023-09-03 13:30:00 2023-09-03 13:30:00 Outpatient ENG CHRISTINE RIBEIRO [id number] [facility] 2023-08-10 09:20:00 2023-08-10 09:20:00 Outpatient CECIL PETTIT [id number] [facility] 2023-05-29 10:30:00 2023-05-29 10:30:00 Outpatient ADALI RIBERA [id number] [facility] 2023-05-21 08:30:00 2023-05-21 08:30:00 Outpatient ADALI RIBERA [id number] [facility] 2023-05-08 00:00:00 2023-05-08 00:00:00 Outpatient GC_GCBZW_Ka diyala_S [facility] [id number] [facility] 2023-05-04 00:00:00 2023-05-04 00:00:00 Outpatient ADALI RIBERA [id number] [facility] 2023-04-29 00:00:00 2023-04-29 00:00:00 Outpatient ADALI RIBERA [id number] [facility] 2023-04-29 00:00:00 2023-04-29 00:00:00 Outpatient ADALI RIBERA [id number] [facility] 2023-04-28 12:30:00 2023-04-28 12:30:00 Outpatient CHRISTINE [facility]IBEIRO [id number] [facility] 2023-04-28 00:00:00 2023-04-28 00:00:00 Outpatient ADALI RIBERA [id number] [facility] 2023-04-27 13:04:26 2023-04-27 13:04:26 Outpatient SFA SFA [id number] Genaro Amaya 2023-04-27 00:00:00 2023-04-27 00:00:00 Outpatient ADALI RIBERA [id number] [facility] 2023-04-21 08:45:00 2023-04-21 08:45:00 Outpatient LAB90 CHRISTINE RIBEIRO [id number] [facility] 2023-04-20 16:30:00 2023-04-20 16:30:00 Outpatient ADALI RIBERA [id number] [facility] 2023-04-06 11:00:51 2023-04-06 11:00:51 Outpatient SFA SFA [id number] Genaro Amaya 2023-03-16 11:05:05 2023-03-16 11:05:05 Outpatient SFA SFA [id number] Genaro Amaya 2023-02-23 13:06:19 2023-02-23 13:06:19 Outpatient SFA SFA [id number] Genaro Amaya 2023-02-02 09:02:03 2023-02-02 09:02:03 Outpatient SFA SFA [id number] Genaro Amaya 2021-05-29 10:48:00 2021-05-30 13:18:00 Inpatient EL Ekhaese, [place] [facility] SURG [id number] [facility] 2021-05-21 17:32:00 2021-05-21 17:32:00 Outpatient Ekhaese, [place] [facility]AC[facility] LABO [id number] [facility] 2021-04-04 16:00:00 2021-04-04 08:00:00 Inpatient EL Ekhaese, [place] [facility]AB[facility] DAYS [id number] [facility] 2021-03-29 11:40:00 2021-03-29 11:40:00 Outpatient Ekhaese, [place] [facility] LABO [id number] [facility] 2021-02-21 11:01:00 2021-02-21 11:01:00 Inpatient Philly Pleitez HCAPM DAYS [id number] [facility] [place] 2021-01-23 09:14:00 2021-01-23 09:14:00 Outpatient Enrike Stiles [facility] DIAB [id number] [facility] 2020-11-07 08:15:00 2020-11-07 08:15:00 Outpatient R LINDY GODWIN [facility] [id number] [facility] 2020-08-09 08:55:29 2020-08-09 10:04:43 Office Visit Lindy Godwin [facility] APPLICATION DEVELOPMENT SPECIALIST [facility] CHILD [facility] 1.840.114 350.1.13.10 4.2.7.2.686 [id number] 2020-08-09 08:55:29 2020-08-09 10:04:43 Office Visit Lindy Godwin [facility] APPLICATION DEVELOPMENT SPECIALIST [facility] CHILD [facility] 1.2840.114 350.1.13.10 4.2.7.2.686 [id number] [facility] 2020-08-09 09:15:00 2020-08-09 09:15:00 Outpatient R LINDY GODWIN [facility] [id number] [facility] 2020-08-09 00:00:00 2020-08-09 00:00:00 Orders Only Doctor Unassigned, [place] [facility] 1.840.114 350.1.13.10 4.2.7.2.686 [id number] [facility] 2020-04-06 08:07:21 2020-04-06 08:42:27 Office Visit Lindy Godwin [facility] APPLICATION DEVELOPMENT SPECIALIST [facility] CHILD [facility] 1.2840.114 350.1.13.10 4.2.7.2.686 [id number] [facility] 2020-04-06 08:15:00 2020-04-06 08:15:00 Outpatient R LINDY GODWIN [facility] [id number] [facility] 2020-02-23 08:06:22 2020-02-23 08:56:47 Office Visit Lindy Godwin [facility] APPLICATION DEVELOPMENT SPECIALIST [facility] CHILD [facility] 1.2.840.114 350.1.13.10 4.2.7.2.686 [id number] [facility] 2020-02-23 08:15:00 2020-02-23 08:15:00 Outpatient R LINDY GODWIN [facility] [id number] [facility] 2020-02-09 08:32:42 2020-02-09 09:40:50 Office Visit Lindy Godwin [facility] APPLICATION DEVELOPMENT SPECIALIST [facility] CHILD [facility] 1..840.114 350.1.13.10 4.2.7.2.686 [id number] [facility] 2020-02-09 08:30:00 2020-02-09 08:30:00 Outpatient R LINDY GODWIN [facility] [id number] [facility] 2020-02-07 08:30:00 2020-02-07 08:30:00 Outpatient R [facility] [id number] [facility] 2020-02-02 08:50:24 2020-02-02 09:55:59 Office Visit Lindy Godwin [facility] APPLICATION DEVELOPMENT SPECIALIST [facility] CHILD [facility] 1..840.114 350.1.13.10 4.2.7.2.686 [id number] 107 [id number] [facility] 2020-02-02 08:15:00 2020-02-02 08:15:00 Outpatient R LINDY GODWIN [facility] [id number] [facility] 2020-02-02 00:00:2020-02-02 00:00:00 Orders Only Doctor Unassigned, [place] [facility] 1..114 350.1.13.10 4.2.7.2.686 [id number] [id number] [facility] 2020-01-17 00:00:00 2020-01-17 00:00:00 Telephone Lindy Godwin [facility] APPLICATION DEVELOPMENT SPECIALIST [facility] & CHILD [facility] 1..114 350.1.13.10 4.2.7.2.686 [id number] 107 [id number] [facility] 2019-11-15 08:58:04 2019-11-15 09:22:08 Nurse Visit Visit, JaneyRmp Nurse Lindy Godwin [facility] APPLICATION DEVELOPMENT SPECIALIST [facility] CHILD [facility] 1..114 350.1.13.10 4.2.7.2.686 [id number] [facility] 2019-11-15 09:00:00 2019-11-15 09:00:00 Outpatient R [facility] [id number] [facility] 2019-11-02 08:00:00 2019-11-02 08:00:00 Outpatient R LINDY GODWIN [facility] [id number] [facility] 2019-11-01 10:02:16 2019-11-01 10:10:30 Telemedici ne Visit Lindy Godwin [facility] APPLICATION DEVELOPMENT SPECIALIST [facility] CHILD [facility] .0.114 350.1.13.10 4.2.7.2.686 [id number] 107 [id number] [facility] 2019-11-01 10:00:00 2019-11-01 10:00:00 Outpatient R LINDY GODWIN [facility] [id number] [facility] 2019-10-12 08:05:41 2019-10-12 09:57:15 Telemedici ne Visit Lindy Godwin [facility] APPLICATION DEVELOPMENT SPECIALIST [facility] & CHILD [facility] 1.0.114 350.1.13.10 4.2.7.2.686 [id number] 107 [id number] [facility] 2019-10-12 09:45:00 2019-10-12 09:45:00 Outpatient R LINDY GODWIN [facility] [id number] [facility] 2019-09-27 11:02:50 2019-09-27 11:23:37 [facility] APPLICATION DEVELOPMENT SPECIALIST [facility] MATERNAL & CHILD [facility] 1.0.114 350.1.13.10 4.2.7.2.686 [id number] 107 [id number] [facility] 2019-09-27 11:00:00 2019-09-27 11:00:00 Outpatient R LINDY GODWIN [facility] [id number] [facility] 2019-09-20 10:19:00 2019-09-22 16:00:00 Hospital Encounter Destini Vazquez [facility] 1..114 350.1.13.10 4.2.7.2.686 [id number] [facility] 2019-09-21 08:00:00 2019-09-21 08:00:00 Outpatient R LINDY GODWIN [facility] [id number] [facility] 2019-09-20 00:00:00 2019-09-20 00:00:00 Orders Only Doctor Unassigned, [place] [facility] 1..114 350.1.13.10 4.2.7.2.686 [id number] [id number] [facility] 2019-09-14 07:59:23 2019-09-14 08:34:31 Routine Visit Lindy Godwin [facility] APPLICATION DEVELOPMENT SPECIALIST [facility] & CHILD [facility] 1.840.114 350.1.13.10 4.2.7.2.686 [id number] 107 [id number] [facility] 2019-09-14 08:00:00 2019-09-14 08:00:00 Outpatient R LINDY GODWIN [facility] [id number] [facility] 2019-09-08 08:56:52 2019-09-08 09:51:11 Routine Visit Lindy Godwin [facility] APPLICATION DEVELOPMENT SPECIALIST [facility] MATERNAL & CHILD [facility] 1.2.840.114 350.1.13.10 4.2.7.2.686 [id number] 107 [id number] [facility] 2019-09-08 09:00:00 2019-09-08 09:00:00 Outpatient R LINDY GODWIN [facility] [id number] [facility] 2019-09-02 00:00:00 2019-09-02 00:00:00 Abstract Lindy Godwin [facility] APPLICATION DEVELOPMENT SPECIALIST [facility] MATERNAL & CHILD [facility] 1.2840.114 350.1.13.10 4.2.7.2.686 [id number] 107 [id number] [facility] 2019-09-01 09:04:51 2019-09-01 09:34:51 Cake Winder Visit Ultrasound, Lindy Gould Antonio F [facility] APPLICATION DEVELOPMENT SPECIALIST [facility] MATERNAL & CHILD [facility] 1.2.840.114 350.1.13.10 4.2.7.2.686 [id number] [facility] 2019-09-01 07:51:10 2019-09-01 09:03:14 Routine Visit Lindy Godwin [facility] APPLICATION DEVELOPMENT SPECIALIST [facility] & CHILD [facility] 1.2.840.114 350.1.13.10 4.2.7.2.686 [id number] 107 [id number] [facility] 2019-08-17 10:53:54 2019-08-17 11:43:25 Routine Visit Lindy Godwin [facility] APPLICATION DEVELOPMENT SPECIALIST [facility] MATERNAL & CHILD [facility] 1.2.840.114 350.1.13.10 4.2.7.2.686 [id number] 107 [id number] [facility] 2019-08-04 09:14:38 2019-08-09 10:20:44 Routine Visit Lindy Godwin [facility] APPLICATION DEVELOPMENT SPECIALIST [facility] MATERNAL & CHILD [facility] 1.2.840.114 350.1.13.10 4.2.7.2.686 [id number] 107 [id number] [facility] 2019-08-09 00:00:00 2019-08-09 00:00:00 Telephone Lindy Godwin [facility] APPLICATION DEVELOPMENT SPECIALIST [facility] CHILD [facility] 1.2.840.114 350.1.13.10 4.2.7.2.686 [id number] 107 [id number] [facility] 2019-08-09 00:00:00 2019-08-09 00:00:00 Abstract Lindy Godwin [facility] APPLICATION DEVELOPMENT SPECIALIST [facility] CHILD [facility] 1.2.840.114 350.1.13.10 4.2.7.2.686 [id number] 107 [id number] [facility] 2019-08-05 00:00:00 2019-08-05 00:00:00 Telephone Lindy Godwin [facility] APPLICATION DEVELOPMENT SPECIALIST [facility] CHILD [facility] 1.2.840.114 350.1.13.10 4.2.7.2.686 [id number] 107 [id number] [facility] 2019-07-11 20:27:51 2019-07-12 03:01:00 Outpatient CHRISTINA PIERCE [facility] MCKENNA [id number] [facility] 2019-03-21 09:23:05 2019-03-21 10:17:43 Routine Visit Faculty, Mike Tee [facility] APPLICATION DEVELOPMENT SPECIALIST [facility] & CHILD [facility] 1.2.840.114 350.1.13.10 4.2.7.2.686 [id number] 107 [id number] [facility] 2019-03-07 00:00:00 2019-03-07 00:00:00 Telephone Risk, Geraldinechp-N p/High [facility] APPLICATION DEVELOPMENT SPECIALIST [facility] & CHILD [facility] 1.2.840.114 350.1.13.10 4.2.7.2.686 [id number] 107 [id number] [facility] 2019-03-04 00:00:00 2019-03-04 00:00:00 [facility] 1.2.840.114 350.1.13.10 4.2.7.2.686 [id number] [facility] 2019-02-25 00:00:00 2019-02-25 00:00:00 Telephone Lindy Godwin [facility] APPLICATION DEVELOPMENT SPECIALIST [facility] & CHILD [facility] 1.2.840.114 350.1.13.10 4.2.7.2.686 [id number] 107 [id number] [facility] 2019-02-24 09:47:59 2019-02-24 10:32:25 Routine Visit Risk, Geraldinechp-N p/High Rehana Hinds [facility] APPLICATION DEVELOPMENT SPECIALIST [facility] MATERNAL & CHILD [facility] 1.2.840.114 350.1.13.10 4.2.7.2.686 [id number] 107 [id number] [facility] 2019-02-17 00:00:00 2019-02-17 00:00:00 Abstract Lindy Godwin [facility] APPLICATION DEVELOPMENT SPECIALIST [facility] MATERNAL & CHILD [facility] 1.2.840.114 350.1.13.10 4.2.7.2.686 [id number] 107 [id number] [facility] 2019-02-16 10:03:47 2019-02-16 10:39:43 Cake Winder Visit Ultrasound, Randolph Radford [facility] APPLICATION DEVELOPMENT SPECIALIST [facility] MATERNAL & CHILD [facility] 1.2.840.114 350.1.13.10 4.2.7.2.686 [id number] [facility] 2019-02-09 00:00:00 2019-02-09 00:00:00 Telephone Lindy Godwin [facility] APPLICATION DEVELOPMENT SPECIALIST [facility] & CHILD [facility] 1.2.840.114 350.1.13.10 4.2.7.2.686 [id number] 107 [id number] [facility] 2019-01-26 09:47:56 2019-02-08 13:19:30 Initial Visit Lindy Godwin [facility] APPLICATION DEVELOPMENT SPECIALIST 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 It is an Emergency Use Authorization (EUA) testauthorized by the U.S. FDA. Novel Coronavirus 21:37:00* Test Item Value Reference Range Interpretation Comme nts Novel Coronavirus 2019 Inhouse (test code = [id number]) Negative Negative Positive resul ts are indicative of the presence fkJAYK-EkJ-8 RNA, clinical correlation with patient historyand other [...] the qualitative detection of nucleic acids from dyvBQBZ-IiC-3 virus and diagnosis of SARS-CoV-2 virusinfection. It is an Emergency Use Authorization (EUA) testauthorized by the U.S. FDA. HCG SERUM [id number] 14:33:00* Test Item Value Reference Range Interpretation Comme nts HCG SERUM QUAL (test code = HCGQL) NEGATIVE NEGATIVE This HCGQL test is NOT applicable for MALE patients.Check with nurse about probable order error.If Tumor Marker Test needed, nurse should order test "HCGTU"(Test #550.21118) COMPREHENSIVE METABOLIC [id number] 12:50:00* Test Item Value Reference Range Interpretation [...] range due to change in reagent. PROTHROMBIN [id number] 12:31:00* Test Item Value Reference Range Interpretation [...] (2.5-3.5) IS PATIENT ON ANTICOAGULANTS? NTHROMBOPLASTIN TIME [id number] 12:31:00* Test Item Value Reference Range Interpretation Comme nts THROMBOPLASTIN TIME PARTIAL (test code = PTT) 39.8 seconds 23.0-37.0 H IS PATIENT ON ANTICOAGULANTS? NCBC W/AUTO [id number] 12:20:00* Test Item Value Reference Range Interpretation [...] REQUIRED (test c ode = MDIFF) NO STOMACH,[id number] 13:40:00* Test Item Value Reference Range Interpretation Comme nts STOMACH,BIOPSY (test code = STOMBX) RUN DATE: 04/08/21 [facility] PAGE 1 RUN TIME: 1341 Specimen Inquiry RUN USER: INTERFACE PATIENT: TYRA RIBERA LOC: LUIS U #: [id number] AGE/SX: 30/F ROOM: RE04/04/21REG DR: Enrike Yeboah DO : 90 BED: DIS: STATUS: DEP SD TLOC: SPEC #: [id number] RECD: 04/05/21 STATUS: HELEN VALDERRAMA #: [id number] CHERISE: 04/04/[address] [facility] [address]: Enrike Yeboah DO ENTERED: 04/05/21 SP TYPE: BX STOMACH LAURI DR: ORDERED: GROSS PROCEDURES: GROSS (04/08/21-114) TISSUES: [...] INTESTINAL METAPLASIA, DYSPLASIA, AND MALIGNANCY DMW/sm D [id number], 84604 MACROSCOPIC The first specimen is received in [...] CONTINUED ON NEXT PAGE RUN DATE: 04/08/21 [place] - Lab PAGE 2 RUN TIME: 1346 Specimen Inquiry RUN USER: INTERFACE SPEC #: [id number] PATIENT: TYRA RIBERA #[id number] (Continued) MACROSCOPIC (Continued) GROSS PERFORMED AT [facility] [address] [place] [address] ([phone] MICROSCOPIC All of the stains, including any controls performed, stain appropriately. MICROSCOPIC PERFORMED AT [facility] [address] [place] [address] (p)[phone] PERFORMING SITE Diagnosis performed at: [facility], [place] [address] [place] [address] Signed SIGNATURE ON FILE Vee Garcia MD 04/08/21 1340 END OF REPORT Novel Coronavirus 16:19:00* Test Item Value Reference Range Interpretation Comme [facility] Novel Coronavirus 2018 Inhouse (test code = WISVQ65OZ) Negative Negative Positive resul ts are indicative of the presence ilBGIR-KlJ-9 RNA, clinical correlation with patient historyand other [...] the qualitative detection of nucleic acids from rvnDUQM-LcI-7 virus and diagnosis of SARS-CoV-2 virusinfection. It is an Emergency Use Authorization (EUA) testauthorized by the U.S. FDA. Novel Coronavirus 16:19:00* Test Item Value Reference Range Interpretation Comme [facility] Novel Coronavirus 2018 Inhouse (test code = CYLAV19TT) Negative Negative Positive resul ts are indicative of the presence bvBANB-GlE-2 RNA, clinical correlation with patient historyand other [...] the qualitative detection of nucleic acids from nlcBOXA-MtO-4 virus and diagnosis of SARS-CoV-2 virusinfection. It is an Emergency Use Authorization (EUA) testauthorized by the U.S. FDA. COMPREHENSIVE METABOLIC [id number] 12:52:00* Test Item Value Reference Range Interpretation [...] range due to change in reagent. URINALYSIS [id number] 12:39:00* Test Item Value Reference Range Interpretation [...] #/LPF FEW Urine Source? Clean CatchUR HCG [id number] 12:39:00* Test Item Value Reference Range Interpretation Comme nts UR HCG QUAL (test code = HCGQLU) NEGATIVE This HCGQL test is NOT applicable for MALE patients.Check with nurse about probable order error.If Tumor Marker Test needed, nurse should order test "HCGTU"(Test #550.97591) Urine Source? Clean CatchPROTHROMBIN [id number] 12:16:00* Test Item Value Reference Range Interpretation [...] (2.5-3.5) IS PATIENT ON ANTICOAGULANTS? NTHROMBOPLASTIN TIME [id number] 12:16:00* Test Item Value Reference Range Interpretation Comme nts THROMBOPLASTIN TIME PARTIAL (test code = PTT) 36.9 seconds 23.0-37.0 N IS PATIENT ON ANTICOAGULANTS? NCBC W/AUTO [id number] 12:10:00* Test Item Value Reference Range Interpretation [...] c ode = MDIFF) NO CBC W/AUTO [id number] 14:12:00* Test Item Value Reference Range Interpretation [...] REVIEW CONSISTANT WITH AUTO DIFFERENTIAL. HCG SERUM [id number] 11:50:00* Test Item Value Reference Range Interpretation Comme nts HCG SERUM QUAL (test code = HCGQL) SERUM NEGATIVE SCREEN NEGATIVE COVID 19 INHOUSE [id number] 11:49:00* Test Item Value Reference Range Interpretation Comme nts COVID 19 INHOUSE AG (test code = MYVYH46WNAK) NEGATIVE Negative Per forestry tree pruner , negative results should be treated aspresumptive [...] and symptoms consistent with COVID-19. CBC W/AUTO [id number] 11:42:00* Test Item Value Reference Range Interpretation [...] c ode = MDIFF) DIFF/SCN CRITERIA POCT [id number] 13:59:00* Test Item Value Reference Range Interpretation Comme nts POCT PREG (test code = 1605) Negative On board controls acceptable with C Line (test code = 3574) Yes POCT PREG LOT # (test code = 3575) POCT PREG TEST DATE ( test code = 3576) [facility] [id number] 13:59:00* Test Item Value Reference Range Interpretation Comme nts POCT PREG (test code = 1605) Negative On board controls acceptable with C Line (test code = 3574) Yes POCT PREG LOT # (test code = 3575) POCT PREG TEST DATE ( test code = 3576) [facility] [id number] 13:59:00* Test Item Value Reference Range Interpretation Comme nts POCT PREG (test code = 1605) Negative On board controls acceptable with C Line (test code = 3574) Yes POCT PREG LOT # (test code = 3575) POCT PREG TEST DATE ( test code = 3576) [facility] [id number] 14:22:00* Test Item Value Reference Range Interpretation Comme nts POCT PREG (test code = 1605) Negative On board controls acceptable with C Line (test code = 3574) Yes POCT PREG LOT # (test code = 3575) POCT PREG TEST DATE ( test code = 3576) [facility] [id number] 14:22:00* Test Item Value Reference Range Interpretation Comme nts POCT PREG (test code = 1605) Negative On board controls acceptable with C Line (test code = 3574) Yes POCT PREG LOT # (test code = 3575) POCT PREG TEST DATE ( test code = 3576) [facility] [id number] 14:06:00* Test Item Value Reference Range Interpretation Comme nts POCT PREG (test code = 1605) Negative On board controls acceptable with C Line (test code = 3574) Yes POCT PREG LOT # (test code = 3575) POCT PREG TEST DATE ( test code = 3576) [facility] [id number] 14:13:00* Test Item Value Reference Range Interpretation Comme nts Syphilis IgG/IgM (test code = 14715-1) Non-reactive Non-reactive LUTHER (test code = LUTHER) Non-reactive - No serologic evidence of T. pallidum infection. Cannot exclude incubating or early syphilis. Submit a second specimen in 2-4 weeks if syphilis is clinically suspected. Equivocal - Further testing to follow. Reactive - Further testing to follow. Lab Interpretation (test code = 87996-4) Normal [facility] WITH [id number] 09:26:00* Test Item Value Reference Range Interpretation [...] 32.8 g/dL 31.6-35.1 RDW-SD (test code = 67147-8) 44.3 fL 39-49.9 RDW-CV (test code = 788-0) 14.4 % 12-15.5 PLT (test code = 777-3) See_Comment [Automated message] The system which generated this result transmitted reference range: 166 - 358 10*3/?L. The reference range was not used to interpret this result as normal/abnormal. MPV (test code = 18344-5) 11.0 fL 9.5-12.9 NRBC/100 WBC (test code = 1494074574) See_Comment [Automated message] The system which generated this result transmitted reference range: 0.0 - 10.0 /100 WBCs. The reference range was not used to interpret this result as normal/abnormal. NRBC x10^3 (test code = 3195127734) <0.01 See_Comment [Automated message] The system which generated this result transmitted reference range: 10*3/?L. The reference range was not used to interpret this result as normal/abnormal. GRAN MAT (NEUT) % (test code = 770-8) 81.3 % IMM GRAN % (test code = 7410944464) 0.50 % LYMPH % (test code = 736-9) 10.0 % MONO % (test code = 5905-5) 7.8 % EOS % (test code = 713-8) 0.1 % BASO % (test code = 706-2) 0.3 % GRAN MAT x10^3(ANC) (test code = 9584110840) 11.84 10*3/uL 1.88-7.09 H IMM GRAN x10^3 (test code = 9074066146) 0.08 10*3/uL 0-0.06 H LYMPH x10^3 (test code = 731-0) 1.46 10*3/uL 1.32-3.29 MONO x10^3 (test code = 742-7) 1.13 10*3/uL 0.33-0.92 H EOS x10^3 (test code = 711-2) <0.03 0.03-0.39 L BASO x10^3 (test code = 704-7) 0.04 10*3/uL 0.01-0.07 Lab Interpretation (test code = 75922-8) Abnormal [facility] IMMUNE [id number] 03:01:12* Test Item Value Reference Range Interpretation Comme nts RHIG CANDIDATE? (test code = 5055) No- see comment Patient is not a candidate for RhIg- Patient is Rh Positive.Performed at [facility] Laboratory Services - [facility] Blood [address] [place] [address]Scjm Free: [phone] No. [id number] [facility] [id number] 00:09:00* Test Item Value Reference Range Interpretation Comme nts VENOUS BASE EXCESS, CORD (test code = 4025904049) mEq/L VENOUS PH, CORD (test code = 1645719511) 7.25-7.45 VENOUS PC02, CORD (test code = 2931217763) See_Comment H [Automated me ssage] The system which generated this result transmitted reference range: 27 - 49 mmHg. The reference range was not used to interpret this result as normal/abnormal. VENOUS PO2, CORD (test code = 1868371179) See_Comment [Automated me ssage] The system which generated this result transmitted reference range: 17 - 41 mmHg. The reference range was not used to interpret this result as normal/abnormal. VENOUS BICARBONATE, CORD (test code = 7724808423) See_Comment [Automa ling message] The system which generated this result transmitted reference range: 12 - 29 mEq/L. The reference range was not used to interpret this result as normal/abnormal. Lab Interpretation (test code = 01154-5) Abnormal [facility] Cord [id number] 00:06:00* Test Item Value Reference Range Interpretation Comme nts BASE EXCESS, CORD (test code = 6837599559) mEq/L AC PH, CORD (BEAKER) (test code = 0026838968) 7.18-7.38 PC02, CORD (test code = 5340142326) See_Comment [Automated messa ge] The system which generated this result transmitted reference range: 32 - 66 mmHg. The reference range was not used to interpret this result as normal/abnormal. PO2, CORD (test code = 5832059801) See_Comment [Automated messa ge] The system which generated this result transmitted reference range: 10 - 30 mmHg. The reference range was not used to interpret this result as normal/abnormal. BICARBONATE, CORD (test code = 7760192110) See_Comment [Automated messa ge] The system which generated this result transmitted reference range: 17 - 27 mEq/L. The reference range was not used to interpret this result as normal/abnormal. [facility] HospitalPANEL [id number] 19:06:46 ANTIBODY SRKohu-YztUvog-K Comment: Performed at [facility] Laboratory Services - [facility] Blood [address] Free: [phone] No. [id number] LABUnThe [facility] CampusType and Screen - ONCE STAT 2019-09-20 18:19:37* Test Item Value Reference Range Interpretation Comme nts ABO & RH (test code = 20) O POSITIVE Performed at [facility] Laboratory Services - [facility] Blood [address] Free: [phone] No. [id number] IAT (test code = 1185) Positive Performed at [facility] Laboratory [facility] - [facility] Blood [address] Free: [phone] No. [id number] [facility] HospitalUric Acid [id number] 18:12:00* Test Item Value Reference Range Interpretation Comme nts URIC ACID (test code = 1815694509) 5.5 mg/dL 2.9-6 Lab Interpretation (test cod e = 52695-5) Normal [facility] [id number] 18:12:00* Test Item Value Reference Range Interpretation Genia wing CREATININE (test code = 0986999236) 0.58 mg/dL 0.5-1.04 eGFR Calculation (Non-) (test code = 8737110325) mL/min/1.73m2 eGFR Calculation () (test code = 8804040210) mL/min/1.73m2 LUTHER (test code = LUTHER) Association [...] or urine or abnormalities in imaging tests). [facility] HospitalSGOT (Asparate Amino Transfer)2019-09-20 18:12:00* Test Item Value Reference Range Interpretation Comme nts AST(SGOT) (test code = 6256689762) 22 U/L 13-40 Lab Interpretation (test cod e = 92942-2) Normal [facility] HospitalAlanine Amino Transferase (SGPT)2019-09-20 18:12:00* Test Item Value Reference Range Interpretation Comme nts ALTv (test code = 1742-6) 20 U/L 5-35 Lab Interpretation (test cod e = 81887-0) Normal [facility] HospitalLactate Firbgwnxndril7775-21-06 18:07:00* Test Item Value Reference Range Interpretation Comme nts LDH (test code = 1515517351) 400 U/L 300-600 Lab Interpretation (test cod e = 11652-4) Normal [facility] HospitalHepatitis B Surface [id number] 17:51:00 * Test Item Value Reference Range Interpretation Comme nts HBsAg Semi-Quantitative (veronica t code = 5195-3) Negative Negative [facility] HospitalProtein CREAT Ratio Urine [id number] 17:03:00* Test Item Value Reference Range Interpretation Comme nts T. PROT U (test code = 2888-6) 12 mg/dL CREAT U (test code = 2193107110) 109.8 mg/dL Protein/Creatinine Ratio Uri ne (test code = 5773730918) 0.0-2.0 [facility] HospitalUrinalysis2020-03-10 16:58:00* Test Item Value Reference Range Interpretation Comme nts APPEARANCE (test code = 4682561858) Hazy Clear A COLOR (test code = 3794871368) Yellow Yellow PH (test code = 7742127230) 4.8-8.0 SP GRAVITY (test code = 2725397189) 1.003-1.030 GLU U QUAL (test code = 9733004150) Normal Normal BLOOD (test code = 4949863425) Negative Negative KETONES (test code = 9274084133) Negative Negative PROTEIN (test code = 2887-8) Negative Negative UROBILIN (test code = 2727852789) Normal Normal BILIRUBIN (test code = 0446749397) Negative Negative NITRITE (test code = 3539945991) Negative Negative LEUK AURA (test code = 0729698094) Negative Negative RBC/HPF (test code = 6674020169) See_Comment [Automated messa ge] The system which generated this result transmitted reference range: 0 - 3 HPF. The reference range was not used to interpret this result as normal/abnormal. WBC/HPF (test code = 6612646499) See_Comment [Automated messa ge] The system which generated this result transmitted reference range: 0 - 5 HPF. The reference range was not used to interpret this result as normal/abnormal. BACTERIA (test code = 0587789068) Few Negative A MUCOUS (test code = 3945882628) Slight Negative LPF A SQ EPITH (test code = 4170041778) See_Comment H [Automated messa ge] The system which generated this result transmitted reference range: <=2 HPF. The reference range was not used to interpret this result as normal/abnormal. Lab Interpretation (test code = 16825-1) Abnormal [facility] WITH [id number] 16:53:00* Test Item Value Reference Range Interpretation [...] 32.9 g/dL 31.6-35.1 RDW-SD (test code = 04578-7) 43.2 fL 39-49.9 RDW-CV (test code = 788-0) 14.2 % 12-15.5 PLT (test code = 777-3) See_Comment [Automated messa ge] The system which generated this result transmitted reference range: 166 - 358 10*3/?L. The reference range was not used to interpret this result as normal/abnormal. MPV (test code = 13135-8) 10.9 fL 9.5-12.9 NRBC/100 WBC (test code = 2677255890) See_Comment [Automated me ssage] The system which generated this result transmitted reference range: 0.0 - 10.0 /100 WBCs. The reference range was not used to interpret this result as normal/abnormal. NRBC x10^3 (test code = 1670334506) <0.01 See_Comment [Automated messa ge] The system which generated this result transmitted reference range: 10*3/?L. The reference range was not used to interpret this result as normal/abnormal. GRAN MAT (NEUT) % (test code = 770-8) 76.7 % IMM GRAN % (test code = 1067604330) 0.50 % LYMPH % (test code = 736-9) 14.3 % MONO % (test code = 5905-5) 7.6 % EOS % (test code = 713-8) 0.5 % BASO % (test code = 706-2) 0.4 % GRAN MAT x10^3(ANC) (test code = 7866767375) 8.53 10*3/uL 1.88-7.09 H IMM GRAN x10^3 (test code = 8864062092) 0.06 10*3/uL 0-0.06 LYMPH x10^3 (test code = 731-0) 1.59 10*3/uL 1.32-3.29 MONO x10^3 (test code = 742-7) 0.84 10*3/uL 0.33-0.92 EOS x10^3 (test code = 711-2) 0.05 10*3/uL 0.03-0.39 BASO x10^3 (test code = 704-7) 0.04 10*3/uL 0.01-0.07 Lab Interpretation (test code = 08074-4) Abnormal [facility] URINALYSIS W SPECIFIC [id number] 14:17:00* Test Item Value Reference Range Interpretation [...] POCT U APPEAR (test code = 3267) [facility] URINALYSIS W SPECIFIC [id number] 15:35:00* Test Item Value Reference Range Interpretation [...] POCT U APPEAR (test code = 3267) [facility] URINALYSIS W SPECIFIC [id number] 14:27:00* Test Item Value Reference Range Interpretation [...] POCT U APPEAR (test code = 3267) [facility] HospitalANTIBODY TITER [id number] 15:17:50* Test Item Value Reference Range Interpretation Comme nts TITERED AB (test code = 1141) Ab Titered: Fya Performed at [facility] Laboratory Services [address] [address]Zenw Free: [phone] No. [id number] AB TITER (test code = 247) Antibody Titer: 4 Performed at [facility] Laboratory Services [address] [address]Hegs Free: [phone] No. [id number] [facility] HospitalANTIBODY TITER [id number] 15:17:16* Test Item Value Reference Range Interpretation Comme nts TITERED AB (test code = 1141) Ab Titered: K Performed at [facility] Laboratory Services [address] [address]Swas Free: [phone] No. [id number] AB TITER (test code = 247) Antibody Titer: 8 Performed at [facility] Laboratory Services [address] [address]Jfbr Free: [phone] No. [id number] [facility] HospitalPANEL [id number] 13:49:50 ANTIBODY DFMvwo-RkmFerg-T Comment: Performed at [facility] Laboratory Services [address] [address]Thfy Free: [phone] No. [id number] LABUnThe [facility] CampusPrenatal Workup, Blood Bank 2019-08-05 13:47:05* Test Item Value Reference Range Interpretation Comme nts ABO & RH (test code = 20) O POSITIVE Performed at [facility] Laboratory Services [facility] Blood [address] Free: [phone] No. [id number] IAT (test code = 1185) Positive Performed at [facility] Laboratory Services [facility] Blood [address] Free: [phone] No. [id number] [facility] URINALYSIS W/O SPECIFIC [id number] 15:38:00* Test Item Value Reference Range Interpretation [...] ve Lab Interpretation (test cod e = 63398-3) Abnormal [facility] URINALYSIS W/O SPECIFIC [id number] 15:38:00* Test Item Value Reference Range Interpretation [...] ve Lab Interpretation (test cod e = 56549-2) Abnormal [facility] URINALYSIS W/O SPECIFIC [id number] 15:38:00* Test Item Value Reference Range Interpretation [...] ve Lab Interpretation (test cod e = 89455-4) Abnormal [facility] URINALYSIS W SPECIFIC [id number] 14:33:00* Test Item Value Reference Range Interpretation [...] POCT U APPEAR (test code = 3267) [facility] URINALYSIS W SPECIFIC [id number] 14:33:00* Test Item Value Reference Range Interpretation [...] POCT U APPEAR (test code = 3267) [facility] HospitalANTIBODY TITER [id number] 11:17:08* Test Item Value Reference Range Interpretation Comme nts TITERED AB (test code = 1141) Ab Titered: Fya Performed at [facility] Laboratory [place] [address]Toll Free: [phone] No. [id number] AB TITER (test code = 247) Antibody Titer: 8 Performed at [facility] Laboratory [place] [address]Toll Free: [phone] No. [id number] [facility] HospitalANTIBODY TITER [id number] 11:17:08* Test Item Value Reference Range Interpretation Comme nts TITERED AB (test code = 1141) Ab Titered: Fya Performed at [place] [address]Toll Free: [phone] No. [id number] AB TITER (test code = 247) Antibody Titer: 8 Performed at [facility] Laboratory [place] [address]Toll Free: [phone] No. [id number] [facility] HospitalANTIBODY TITER [id number] 11:16:14* Test Item Value Reference Range Interpretation Comme nts TITERED AB (test code = 1141) Ab Titered: K Performed at [facility] Laboratory [place] [address]Toll Free: [phone] No. [id number] AB TITER (test code = 247) Antibody Titer: 4 Performed at [facility] Laboratory [facility] [place] [address]Toll Free: [phone] No. [id number] [facility] HospitalANTIBODY TITER [id number] 11:16:14* Test Item Value Reference Range Interpretation Comme nts TITERED AB (test code = 1141) Ab Titered: K Performed at [address] Free: [phone] No. [id number] AB TITER (test code = 247) Antibody Titer: 4 Performed at [place] [address]Toll Free: [phone] No. [id number] [facility] [id number] 11:16:13 ANTIBODY EBEkfi-YryIttc-X Comment: Performed at [facility] Laboratory Services [place] [address]Toll Free: [phone] No. [id number] [facility] IDENTIFICATION 2019-02-25 11:16:13ANTIBODY OZKmeo-RkyAbdq-O Comment: Performed at [facility] Laboratory Services [place] [address]Toll Free: [phone] No. [id number] [facility] BLOOD [id number] 07:33:42* Test Item Value Reference Range Interpretation Comme nts ABO & RH (test code = 20) O Positive Performed at [address] Free: [phone] No. [id number] IAT (test code = 1185) Positive Performed at [facility] Laboratory [place] [address]Toll Free: [phone] No. [id number] [facility] HospitalPRENATAL WORKUP, BLOOD [id number] 07:33:42 * Test Item Value Reference Range Interpretation Comme nts ABO & RH (test code = 20) O Positive Performed at [facility] Laboratory Services [facility] Blood [address] Free: [phone] No. [id number] IAT (test code = 1185) Positive Performed at [facility] Laboratory Services - [facility] Blood [address] Free: [phone] No. [id number] [facility] HospitalPOCT URINALYSIS W SPECIFIC [id number] 15:07:00* Test Item Value Reference Range Interpretation [...] POCT U APPEAR (test code = 3267) [facility] HospitalPOCT URINALYSIS W SPECIFIC [id number] 15:07:00* Test Item Value Reference Range Interpretation [...] POCT U APPEAR (test code = 3267) [facility] URINALYSIS W SPECIFIC [id number] 15:07:00* Test Item Value Reference Range Interpretation Comme [facility] POCT U SP GRAV (test code = [...] POCT U APPEAR (test code = 3267) [facility] HospitalLAB ONLY PAP SMEAR-LIQUID [id number] 15:19:00* Test Item Value Reference Range Interpretation Comme [facility] Case Report (test code = 4969489893) Gynecologic Cytology?Case: [id number]? Authorizing Provider:?Lindy Godwin,?Collected:? 01/26/2019 1135??? CNP?Ordering Location:? [facility]-? Received:?01/26/2019 2341?? Maurice? First Screen:?Adali Munroe? Specimen:?Liquid Based Pap Preparation, CERVIX? Clinical Information (test code = 7458904905) routine Specimen Adequacy (test code = 33626-6) Satisfactory for Evaluation(Endocervical /Transformation Zone Component Absent) Interpretation (test code = 08468-2) Negative for intraepithelial lesion or malignancy Other Findings (test code = 4048954998) Shift In Blossom Suggestive Of Bacterial Vaginosis Comments (test code = 1806131497) b1phzEIuYVVuvLLkThIuPMW tIIJoe3ykTUZwpBNqDoJdRh NcZnRuYmpcdWMxXGRlZmYwe 4ivo446mVFnn1arXFYcPyW9 pXScFHAizHObL965OFBrMSg jl9pjw8IjHBCwnOQxt9A0VR WFZGzjJeRcY127n2soz7jyy nUpsAI6ZNLlTPGiO0HhMR6k HYHfuFNxKNwdghEpGeT8UNz tQCJqEkT5IRQfeWZfCCBhE7 35LGU9pJozg8cvCVH1OKIxP JXcFlZePa7hoWKvO485TZHv IOIIENSyhRl2OQPuztQbfqD hmJRIs379L186g3ieEHEsxg VkyOiQzqzzt4saE894TGVhz GVydzEyMjQwXHBhcGVyaDE1 IPDuHS9sinstAWP5WVkiKWT eiaUyEFOoaCTqT6P0BzZuzE LlN2MyTZycKVNjhxv1YoPrT f0wiKZrfGI7GLdvb5gfx9jz yEVeIeq9BWBnErDbCdhbXLs wq0Yyx0ypFEUhcr8nEUS0aX AxpDuaq0P9oLLmUMCclLArc zQsZPAeVpP9NEjjQF1lze39 KCDhNHE1hw5ogAQefMywhgH krGFjCTcyB2HvZRDmp565CX MpM5GoDVOep1M7hrWpUuLvI WGbxYV4stQ0IKWfUKh5wPWb hfV9iqRinMEdY5zdiN2qOCd dGE7gfpjaq9ojICB4XVegTL QdcRJ0ghfnKNeyVAEwWxL8r zZszZZdCRJtfHmeZUuqv413 TNG6IlZbNNIbi8FaQ4CxmUi rN62tkUbjR98sHJQtmRiygO 0vfGqnvJ6aDcGzHdUsQWknI XJkXHBsYWluXGYwXGZzMjBc yFtptZ2cGwTxGgSeYblcML0 pOXSsD3jgnNYhZNKtSCBcX3 fdQvHphB4oeOlhFUxeFjLkD mVuXhpzKKBpbhYgzg5gBPTx ocLiivEhtJUdXZRcVpbmQ6b 3f4PrT3tbb0rpN2rleGFpvO pccGFyIFVuaXZlcnNpdHkgb 8FhDUJ6MEGpNQPdsVSsjODV dnJgY8nxEEOon5WdlB4wxIX UXKL1gFXhdcMuCWfwJKs7BL LNrTR8ZZBetXP4h6lrLPKdZ lY4SBJJbHntWATnJBI4SMxj A924pCxuaTSyTXPtFVDiRJj jUCFdLFYdMyCpiNoyjF7yVm FoYmEcHtzvIB8xJDIgI7ynh QMdMLQiLQWuQ9kwWsZwbT9c aFxmMVxjZjFcZnMxNlxpIEx gUWz1CSSBsCD8ORCIDJU6Wh C3O6tiuMUkoqplOFwelwYbH HBhclxwYXJ9 LMP (test code = 7488244601) Educational Note (test code = 7172007009) w3wzaREqETSuw4vwMJAezNN uZzEwMzNcZnRuYmpcdWMxIH mtfrPmIOodp2VlQ8MmPUPiY FxhbnNpXGRlZmxhbmcxMDMz PAH4nqMrKZGcTEokFOBqJXr vWv4bcQRkoHcwMdGuKHUqu5 hadxYSuzhzlDh4d2rvZEByP iI2fSFgXBbeK9dqcvFqpLGi ZFXmHQq6xZ19ROImgK8jlXU fEHgvfmWwCiX8LYhvHDSrHk I1MTAalDMsCVPpW6coEFAcQ CGpQ3EhFB9mLngfQsc4YRE5 IDtccmVkMFxncmVlbjBcYmx 3RPTqB260EMX5iQvfi0blXR V6SLLjUNFzTxOdUx8uzVAcA 465VJBjFUYWEGUreOg3ALQh wyMntrHkwPNJt069H011l0v bJPSnfgKraPxUoxado3puN5 19XHBhcGVydzEyMjQwXHBhc CYokLO9GXZnIT5mrhpvVTcn UIndZJGomhR0QYWbqNFqN7O sGBHhGN6tvwlkDHH4VQxuKT TkTYL7KuYfFXTbh7Hbjbo3Z vVffg1qww30LJO0m3IkiMxx BBG7UED8ZtAfCg6lsZJqJBK bFD8fUtMmsHPgKEIdua73bX weZWlvfiEidH6gImZjEDCsu QNyDYElQX7drEXdUTTfkK5p cmxjXHBnYnJkcmhlYWRccGd bcoYnZy0nkTppMPL2UKskK1 fdlG7zLfS3WBjmY0uoyY9cH Yb8STvicUL1MJLgxK8fNO0l uvzrx8ywKWtlQQlqDVJxdxB 6xeM4WRMngNFyB0GsqE8cEL PeCT8umpjaf1jrFDS7FEvlJ MIiOOK4YpNoFOAsy4Kunto9 TcVje1KlwFFcWGqvS48bu33 7EYUthcLsP1sobAGrygzupW TzxxwcXDawveL4HPTnNWRqJ WluXGYxXGZzMjJcbGFuZzEw MzNcaGljaFxmMVxkYmNoXGY fQQfbU1eaMgPfH0ZsWABkCa ScgRHJNZJ2fJKmxNXqoMXbj J4gzYQkYYPcEUShw4YaQPnk HNVdf3BgMIYstT3vHCDkt2Q fxQSivEVgeHa1WSEsdnWckY RblE89viUhKE3rDZSqJYKgN ZBggcQefCCqr8AzUyONiZSa pXVeaWZrZFYvYE2gpP4gPKZ vhsWxQRO3oJQdd1agJMJie8 RtZmcjeQP7GO3hPZHfvDEhX U4eB1G1dEEeZATcZZKhHDpm FM3qr4CmpNi8QXQnRGI8pVY tKsBoRgAfoIduwkSmDP7kaZ vfHjVcesAhSu5foM08KSEcU V6hUJSjOCqtfJCileXgEGZn tJ4nK6BbEGJiB48dMGGkCOL xbY2rgE5rplWbklXtfzSzl8 4rZG1gEHBtrC9hwPhicU5cd mUgdGhlIGVmZmVjdCBvZiBm VSnbDVNlZGapyCl5CTWnGMF 8wCUiPcRdBV73oyDeTLNlZS 57JBEud6OaEEDvXMGsHW7tu jNpNII5tpQbj48bkKe5CNnf mSSywK9pSBgkbUQaiXDcLpN lyYPiYClmLNEwJG9aMTElVL 55IHVuZXhwbGFpbmVkIGNsa V9kK8DsHOInO04eYGFyLHOm jQ6wfM4pigcbixTgJIKseLA zcyBvZiBhbnkgUGFwIFRlc3 MjwiCjhCe3LpnfdALkfscdL VxmczIyXGxhbmcxMDMzXGhp Y4zgMhDzJKArvLjiJPvvh5G oXGYxXGZzMjJccGFyfX0= Embedded Images (test code = 8072264286) [facility] PAP SMEAR-LIQUID [id number] 15:19:00* Test Item Value Reference Range Interpretation Comme nts Case Report (test code = 1780761545) Gynecologic Cytology?Case: [id number]? Authorizing Provider:?Lindy Godwin,?Collected:? 01/26/2019 1135?? CNP?Ordering Location:? [facility]? Received:?01/26/2019 2341?? Maurice? First Screen:?Adali Munroe? Specimen:?Liquid Based Pap Preparation, CERVIX? Clinical Information (test code = 9636471074) routine Specimen Adequacy (test code = 50004-5) Satisfactory for Evaluation(Endocervical /Transformation Zone Component Absent) Interpretation (test code = 23404-6) Negative for intraepithelial lesion or malignancy Other Findings (test code = 9292226651) Shift In Blossom Suggestive Of Bacterial Vaginosis Comments (test code = 2698966231) d9tdtWIrFUUtdBHlOnQiNWF wDBHhn0qxDCKjmKZqFgVbWl NcZnRuYmpcdWMxXGRlZmYwe 1gxc993aDEpn1yzMVSfFxR3 iUTsTQTsfZVlA292WNYhIFe vl6uxw4WqYXItjJZef6G7AI JGQUckJwHaV802e5ztx8zae nMasZY7KCUqUVYsP8XcKP7z JOQkwGVnYNzwabMeEvW1BVy yXEIgRoJ5RGQbnVMnFWGjW3 09VRF4vLehf9pnURU6PKOuT KRzSwOfMi4ooEGlC940EXUc RLGRNIIrqUp0XPRfmiDcusX gaOXDu347D899f0lqCLJaxg MbcGuAwesxr8xhZ501DTVup GVydzEyMjQwXHBhcGVyaDE1 SWKvZX6nywrzEEE8WPbgYGF rovMwVNKchUJfJ5B5SkDicY ZhF8XwWVigNYZnepm8MqMcE j4cjWHpbCV0TDkih2dcc3pm gTLmDwn6SHIrPfIsZrypYTi tk5Uez7pdHZDavc8qUIN9nQ YbfEmtv9H2yIUvNBIdvJTfg wUdJURiGtJ2NXawYE6qvh10 MBDrSFN1dg0kvOPnbUrortW liCNnSFseY7TqDJYxi059UW GsQ4DxOZLsy3K6sxWxRaKnO FUcbMS2vzW4IKBfXFk4hEYa mgV2mmJxnXCiG9ihrM9oDZc tDB7dwqngv7ckXNX1VFyfJK EmdBU0vxtlUQtzNINuFkI1a wFhzCHxMCDowJupFXgui499 ZSN3FmOmZFOux3KbJ5PhrGa kN81tdKwyV00zIZPmgCpbiN 9qcUddbX8xBlKqPoPwLRfkR XJkXHBsYWluXGYwXGZzMjBc jIxmaP3tMkMdPjDfUnnqAU2 kSMIoN5yjhLKaXIAdDAUhG1 xcFxSlqA3etMjzWFerInTwR aThUmwsXWRzxrBvpu0vANPk qoCqgxLhrFCgPPWmRmrxS2g 5n1FvA4ybi5coM2ymlZVazZ pccGFyIFVuaXZlcnNpdHkgb 7RkJPX9IMDrTHTbqLCdmDXJ cqZiM7baFVFrx9RiwT8jeHG HLVE9eMLozyZqGVliAKo9QK SBkGG9OADtqZI6k4uwWEJwF gS2KOPVbZqbJBGuSIM7NGzw C163gBxqwGFmLQWuPUZwKVz yMPKlPWFaYlVclDqgcB7bAq TzFbHkWrhiYJ4gUWIaT2mqi OGyCDZnGLKuD5wfOvQjdB9k aFxmMVxjZjFcZnMxNlxpIEx vZHa3YPTWiOS4SDPPKBE6Qt V4Y2zioGYzhsxlZRxzxgRpJ HBhclxwYXJ9 LMP (test code = 6146108781) Educational Note (test code = 8165528919) k4awwVZpNTRij7mwPLXjpWU uZzEwMzNcZnRuYmpcdWMxIH yzgeMrSNlkz5WkF2XvVSIcQ FxhbnNpXGRlZmxhbmcxMDMz HWZ5xfZvZIEaKAemNENcTWz fBy6ykLNetOmtKwFgKSOzb5 wemxNQlpqjiQd0s6dzZTUvB zF2nFEpWHwvM2kdsdXlzPXu PITyJBb4pN26QCYedP7wmQH lSJfyvnByCeC7PTrpACArUn N0EPDfcOPfPEQdH5oxOZDjW HRsU9DfOU9sFlahMky9QXD3 IDtccmVkMFxncmVlbjBcYmx 1OQLzL544YFK0nCerd0dzCA Q4PNKdAZKbZeFmTu3jpPFkO 388LRIwUJTZJYKfuVu6FMBk cwXzrfXbxOVKo033C181x0h jRXIzznGndNnZyzxfd9fyH8 19XHBhcGVydzEyMjQwXHBhc RGhtIV1QPLySU2zllnyYWir BQvlZQUzjfG8QMAasIUfU1D aPPPwCH7ocxxdBCO8RTqbDL YgSLH8MxIiRCOyl0Hqnbf9C pWunh2ufa88UTY8d8ZelOom PCH5PWB5XgUaYm0xeTNuJPY cGA7sHsJfmPAmFHNvfz54xM feXNkzwiSocA5zJuBlFXElj FPwFXZiEY2gmVBgNJSppM5m cmxjXHBnYnJkcmhlYWRccGd uyiOiOi4fcZfhYVU2COigO7 qmhE8oLzP1OJhyJ6aunH6jK Gm3APthkUU1YHJlcM4sRV1j eurpo5diJPqfHKizRWHjnjC 8gaO8JCMnhZYvV3HriE5cUY KkZE6bighnn5caSUF2HGayH GUsVTQ5TfTzQELdp4Ocwnh9 UtMfl3CtwHTnWNwoY23kq25 7XMIrkfKvZ4vqcURiiyhuzW TmfmznXVhxitA5DMBcEQOeQ WluXGYxXGZzMjJcbGFuZzEw MzNcaGljaFxmMVxkYmNoXGY mNOuyQ6nbZoBnF6OsWDLdIf ZeyWPVFKL5oBQjbNQwuIRbw G3naXEfKGCpJDPsl4OxSNum DPBtn5XxYJMwaV2mOEBzx7R xuNRyjBEnhJw3YVFsbuVgaH RycU27mfXmWR8bZOOjGAYbX FPtwuPkbRLvd2FaYyBAoSEq lUUiuPRbJMWeDL7nnI5kPBR vgxPiANV3kNLla5giWEJdf6 EzPnoodGJ0FI4iVBVlwGIhL T3qN3Y3cTKeEDBcBKPvZEgw CZ8yi7ZwySj4VHEsYIE2lHE aOeVjPrPbeVprpjEzCO5ioI lfAqYeweZhKl5puD44AYEkB X6xLXNfYFqjkCFxwwWiLHJv vP3oR2FqUQGjY42lAWIbQFA tnK7orZ6jqvBdxaLsmoYcb7 1iCY3uYMVseH6zwCuocQ6ow mUgdGhlIGVmZmVjdCBvZiBm JRnaVXKbVFezpSc4CFGtKEA 4uGUrLhBdRN29lhYuVTHmKF 25PQUwu4AhMPRvOZJbFI1or rJbKAE6zdFqx45koBj5YQac rVCmbE8wFDhhiHRkrRUwVfJ tyZPkGJxzZDAaBR9kTTXhEC 55IHVuZXhwbGFpbmVkIGNsa B2gV1UpBONtW14wPWKgCUSk fF7xuE3zookhixAyYQLgfXB zcyBvZiBhbnkgUGFwIFRlc3 VblsHbsPm8YhlrxHUyckapY VxmczIyXGxhbmcxMDMzXGhp L2umExIsVALlpFmqIGpkk4G oXGYxXGZzMjJccGFyfX0= Embedded Images (test code = 5994231922) [facility] [id number] [facility]:23:00* Test Item Value Reference Range Interpretation Comme nts URINE CULTURE (test code = 630-4) > 100,000 CFU/mL mixed aerobic organisms - suggests endogenous microbial contamination [facility] [id number] 12:23:00* Test Item Value Reference Range Interpretation Comme nts URINE CULTURE (test code = 630-4) > 100,000 CFU/mL mixed aerobic organisms - suggests endogenous microbial contamination [facility] CHLAMYDIA AMPLIFIED [id number] 23:43:00* Test Item Value Reference Range Interpretation Comme nts Lab Interpretation (test cod e = 20533-7) Normal [facility] CHLAMYDIA AMPLIFIED [id number] 23:43:00* Test Item Value Reference Range Interpretation Comme nts Lab Interpretation (test cod e = 95660-3) Normal [facility] ([facility]AURA) [id number] 16:17:00 * Test Item Value Reference Range Interpretation Comme nts Rubella screen IgG (test code = 1027761249) Positive Negative LUTHER (test code = LUTHER) Positive - Indicat es the patient was exposed to Rubella through infection or vaccination.Negative - Indicates the patient could be susceptible to Rubella infection.Equivocal - A second specimen should be sent. [facility] ANTIBODY [id number] 16:17:00* Test Item Value Reference Range Interpretation Comme [facility] VZV IgG antibody (test code = 21701-8) Positive Negative LUTHER (test code = LUTHER) Positive - Indicat es the patient was exposed to VZV through infection or vaccination.Negative - Indicates the patient could be susceptible to VZV infection.Equivocal - A second specimen should be sent for testing. [facility] [id number] 16:17:00 * Test Item Value Reference Range Interpretation Comme [facility] Rubella screen IgG (test code = 6346701140) Positive Negative LUTHER (test code = LUTHER) Positive - Indicat es the patient was exposed to Rubella through infection or vaccination.Negative - Indicates the patient could be susceptible to Rubella infection.Equivocal - A second specimen should be sent. [facility] ANTIBODY [id number] 16:17:00* Test Item Value Reference Range Interpretation Comme [facility] VZV IgG antibody (test code = 03786-4) Positive Negative LUTHER (test code = LUTHER) Positive - Indicat es the patient was exposed to VZV through infection or vaccination.Negative - Indicates the patient could be susceptible to VZV infection.Equivocal - A second specimen should be sent for testing. [facility] ONLY - SYPHILIS [id number] 14:51:00* Test Item Value Reference Range Interpretation Comme [facility] Syphilis IgG/IgM (test code = 32617-9) Non-reactive Non-reactive LUTHER (test code = LUTHER) Non-reactive - No serologic evidence of T. pallidum infection. Cannot exclude incubating or early syphilis. Submit a second specimen in 2-4 weeks if syphilis is clinically suspected.Equivocal - Further testing to follow.Reactive - Further testing to follow. Lab Interpretation (test code = 61603-6) Normal [facility] ONLY - SYPHILIS [id number] 14:51:00* Test Item Value Reference Range Interpretation Comme [facility] Syphilis IgG/IgM (test code = 15941-8) Non-reactive Non-reactive LUTHER (test code = LUTHER) Non-reactive - No serologic evidence of T. pallidum infection. Cannot exclude incubating or early syphilis. Submit a second specimen in 2-4 weeks if syphilis is clinically suspected.Equivocal - Further testing to follow.Reactive - Further testing to follow. Lab Interpretation (test code = 85499-6) Normal [facility] TITER [id number] 11:22:09* Test Item Value Reference Range Interpretation Comme nts TITERED AB (test code = 1141) Ab Titered: Fya Performed at [facility] Laboratory Services [address] Free: [phone] No. [id number] AB TITER (test code = 247) Antibody Titer: <1 Performed at [facility] Laboratory Services [address] Free: [phone] No. [id number] [facility] TITER [id number] 11:22:09* Test Item Value Reference Range Interpretation Comme nts TITERED AB (test code = 1141) Ab Titered: Fya Performed at [address] Free: [phone] No. [id number] AB TITER (test code = 247) Antibody Titer: <1 Performed at [facility] Laboratory Services [address] Free: [phone] No. [id number] [facility] TITER [id number] 11:22:06* Test Item Value Reference Range Interpretation Comme nts TITERED AB (test code = 1141) Ab Titered: K Performed at [address] Free: [phone] No. [id number] AB TITER (test code = 247) Antibody Titer: <1 Performed at [facility] Laboratory Services [address] Free: [phone] No. [id number] [facility] TITER [id number] 11:22:06* Test Item Value Reference Range Interpretation Comme nts TITERED AB (test code = 1141) Ab Titered: K Performed at [facility] Laboratory Services [address] Free: [phone] No. [id number] AB TITER (test code = 247) Antibody Titer: <1 Performed at [facility] Laboratory Services [address] Free: [phone] No. [id number] [facility] [id number] 10:41:26 ANTIBODY NAAfrx-MolTsva-M Comment: Performed at [facility] Laboratory Services [address] Free: [phone] No. [id number] [facility] IDENTIFICATION 2019-01-27 10:41:26ANTIBODY XNLmls-EwwCryf-Y Comment: Performed at [facility] Laboratory Services [address] Free: [phone] No. [id number] [facility] [id number] 10:41:26ANTIBODY TFUlth-AvfVgkf-X Comment: Performed at [facility] Laboratory Services [address] Free: [phone] No. [id number] [facility] [id number] 10:41:26ANTIBODY KYVabf-ZbdMqsg-R Comment: Performed at [facility] Laboratory Services [address] Free: [phone] No. [id number] [facility] [id number] 09:46:00 * Test Item Value Reference Range Interpretation Comme nts HCV Semi-Quantitative (test code = 73252-6) [facility] WITH [id number] 09:46:00* Test Item Value Reference Range Interpretation Comme nts HIV Semi-quantitative (test code = 63897-6) Negative Negative LUTHER (test code = LUTHER) Non-reactive for HIV-1 antigen and HIV-1/HIV-2 antibodies.?No laboratory evidence of HIV infection.?Repeat in 2-4 weeks if acute HIV infection is suspected. [facility] [id number] 09:46:00* Test Item Value Reference Range Interpretation Comme nts HCV Semi-Quantitative (test code = 25818-3) [facility]-AB WITH [id number] 09:46:00* Test Item Value Reference Range Interpretation Comme nts HIV Semi-quantitative (test code = 63182-7) Negative Negative LUTHER (test code = LUTHER) Non-reactive for HIV-1 antigen and HIV-1/HIV-2 antibodies.?No laboratory evidence of HIV infection.?Repeat in 2-4 weeks if acute HIV infection is suspected. [facility]ANT[facility]YPING [id number] 09:35:20* Test Item Value Reference Range Interpretation Comme nts ANTIGEN ID (test code = 1687) Leb Antigen Negative Performed at [facility] Laboratory Services - [address] Free: [phone] No. [id number] ANTIGEN ID (test code = 62) M Antigen Positive Performed at [facility] Laboratory Services - [address] Free: [phone] No. [id number] ANTIGEN ID (test code = 63) N Antigen Negative Performed at [facility] Laboratory Services [address] Free: [phone] No. [id number] ANTIGEN ID (test code = 64) Tg Antigen Positive Performed at [facility] Laboratory Services [address] Free: [phone] No. [id number] ANTIGEN ID (test code = 1688) Fya Antigen Negative Performed at [facility] Laboratory [address] Free: [phone] No. [id number] [facility] [id number] 09:35:20* Test Item Value Reference Range Interpretation Comme nts ANTIGEN ID (test code = 1687) Leb Antigen Negative Performed at [facility] Laboratory [address] Free: [phone] No. [id number] ANTIGEN ID (test code = 62) M Antigen Positive Performed at [address] Free: [phone] No. [id number] ANTIGEN ID (test code = 63) N Antigen Negative Performed at [address] Free: [phone] No. [id number] ANTIGEN ID (test code = 64) Tg Antigen Positive Performed at [address] Free: [phone] No. [id number] ANTIGEN ID (test code = 1688) Fya Antigen Negative Performed at [facility] Laboratory [address] Free: [phone] No. [id number] [facility] HospitalHEPATITIS B SURFACE [id number] 09:30:00 * Test Item Value Reference Range Interpretation Comme nts HBsAg Semi-Quantitative (veronica t code = 5195-3) [facility] B SURFACE [id number] 09:30:00 * Test Item Value Reference Range Interpretation Comme nts HBsAg Semi-Quantitative (veronica t code = 5195-3) [facility] HospitalANT[facility]YPING [id number] 08:58:34* Test Item Value Reference Range Interpretation Comme nts ANTIGEN ID (test code = 1687) Fyb Antigen Positive Performed at [address] Free: [phone] No. [id number] [facility] HospitalANTIGEN TYPING [id number] 08:58:34* Test Item Value Reference Range Interpretation Comme nts ANTIGEN ID (test code = 1687) Fyb Antigen Positive Performed at [facility] Laboratory [address] Free: [phone] No. [id number] [facility]ANT[facility] TYPING [id number] 08:49:20* Test Item Value Reference Range Interpretation Comme nts ANTIGEN ID (test code = 1687) Jkb Antigen Positive Performed at [address] Free: [phone] No. [id number] ANTIGEN ID (test code = 62) P1 Antigen Positive Performed at [address] Free: [phone] No. [id number] ANTIGEN ID (test code = 63) S Antigen Negative Performed at [address] Free: [phone] No. [id number] ANTIGEN ID (test code = 64) s Antigen Positive Performed at [facility] Laboratory [address] Free: [phone] No. [id number] ANTIGEN ID (test code = 1688) e Antigen Positive Performed at [address] Free: [phone] No. [id number] [facility] HospitalANTIGEN TYPING [id number] 08:49:20* Test Item Value Reference Range Interpretation Comme nts ANTIGEN ID (test code = 1687) Jkb Antigen Positive Performed at [facility] Laboratory Services - [address] Free: [phone] No. [id number] ANTIGEN ID (test code = 62) P1 Antigen Positive Performed at [facility] Laboratory [address] Free: [phone] No. [id number] ANTIGEN ID (test code = 63) S Antigen Negative Performed at [facility] Laboratory Services - [address] Free: [phone] No. [id number] ANTIGEN ID (test code = 64) s Antigen Positive Performed at [facility] Laboratory [address] Free: [phone] No. [id number] ANTIGEN ID (test code = 1688) e Antigen Positive Performed at [facility] Laboratory [address] Free: [phone] No. [id number] [facility]YPING [id number] 08:32:43* Test Item Value Reference Range Interpretation Comme nts ANTIGEN ID (test code = 1687) C Antigen Positive Performed at [facility] Laboratory [facility] - [address] Free: [phone] No. [id number] ANTIGEN ID (test code = 62) c Antigen Positive Performed at [facility] Laboratory Services - [address] Free: [phone] No. [id number] ANTIGEN ID (test code = 63) E Antigen Positive Performed at [facility] Laboratory [address] Free: [phone] No. [id number] ANTIGEN ID (test code = 64) K Antigen Negative Performed at [facility] Laboratory [address] Free: [phone] No. [id number] ANTIGEN ID (test code = 1688) Jka Antigen Positive Performed at [address] Free: [phone] No. [id number] [facility] HospitalANTIGEN TYPING [id number] 08:32:43* Test Item Value Reference Range Interpretation Comme nts ANTIGEN ID (test code = 1687) C Antigen Positive Performed at [facility] Laboratory [address] Free: [phone] No. [id number] ANTIGEN ID (test code = 62) c Antigen Positive Performed at [address] Free: [phone] No. [id number] ANTIGEN ID (test code = 63) E Antigen Positive Performed at [facility] - [address] Free: [phone] No. [id number] ANTIGEN ID (test code = 64) K Antigen Negative Performed at [address] Free: [phone] No. [id number] ANTIGEN ID (test code = 1688) Jka Antigen Positive Performed at [address] Free: [phone] No. [id number] [facility] HospitalPRENATAL WORKUP, BLOOD [id number] 07:33:05 * Test Item Value Reference Range Interpretation Comme nts ABO & RH (test code = 20) O POSITIVE Performed at [address] Free: [phone] No. [id number] IAT (test code = 1185) Positive Performed at [facility] Laboratory [address] Free: [phone] No. [id number] [facility] HospitalPRENATAL WORKUP, BLOOD [id number] 07:33:05 * Test Item Value Reference Range Interpretation Comme nts ABO & RH (test code = 20) O POSITIVE Performed at [facility] Laboratory Services - [facility] Blood [address] [address] Free: [phone] No. [id number] IAT (test code = 1185) Positive Performed at [facility] Laboratory Services - [facility] Blood [address] [address] Free: [phone] No. [id number] [facility] HospitalGLUCOSE 1 HOUR POST [id number] 04:06:00* Test Item Value Reference Range Interpretation Comme nts GLUC 1 HR (test code = 7961109914) 116 mg/dL 120-170 L Lab Interpretation (test cod e = 01965-4) Abnormal [facility] HospitalGLUCOSE 1 HOUR POST [id number] 04:06:00* Test Item Value Reference Range Interpretation Comme nts GLUC 1 HR (test code = 3173644107) 116 mg/dL 120-170 L Lab Interpretation (test cod e = 43135-3) Abnormal [facility] WITH [id number] 03:24:00* Test Item Value Reference Range Interpretation [...] 32.2 g/dL 31.6-35.1 RDW-SD (test code = 68515-0) 41.0 fL 39-49.9 RDW-CV (test code = 788-0) 13.2 % 12-15.5 PLT (test code = 777-3) See_Comment [Automated messa ge] The system which generated this result transmitted reference range: 166 - 358 10*3/?L. The reference range was not used to interpret this result as normal/abnormal. MPV (test code = 05486-8) 9.9 fL 9.5-12.9 NRBC/100 WBC (test code = 3027505530) See_Comment [Automated [employer] ssage] The system which generated this result transmitted reference range: 0.0 - 10.0 /100 WBCs. The reference range was not used to interpret this result as normal/abnormal. NRBC x10^3 (test code = 9457466573) <0.01 See_Comment [Automated messa ge] The system which generated this result transmitted reference range: 10*3/?L. The reference range was not used to interpret this result as normal/abnormal. GRAN MAT (NEUT) % (test code = 770-8) 73.4 % IMM GRAN % (test code = 9095835530) 0.50 % LYMPH % (test code = 736-9) 18.3 % MONO % (test code = 5905-5) 6.2 % EOS % (test code = 713-8) 1.1 % BASO % (test code = 706-2) 0.5 % GRAN MAT x10^3(ANC) (test code = 3758950864) 6.12 10*3/uL 1.88-7.09 IMM GRAN x10^3 (test code = 0707294293) 0.04 10*3/uL 0-0.06 LYMPH x10^3 (test code = 731-0) 1.53 10*3/uL 1.32-3.29 MONO x10^3 (test code = 742-7) 0.52 10*3/uL 0.33-0.92 EOS x10^3 (test code = 711-2) 0.09 10*3/uL 0.03-0.39 BASO x10^3 (test code = 704-7) 0.04 10*3/uL 0.01-0.07 Lab Interpretation (test code = 43271-1) Abnormal [facility] WITH [id number] 03:24:00* Test Item Value Reference Range Interpretation [...] 32.2 g/dL 31.6-35.1 RDW-SD (test code = 41521-4) 41.0 fL 39-49.9 RDW-CV (test code = 788-0) 13.2 % 12-15.5 PLT (test code = 777-3) See_Comment [Automated messa ge] The system which generated this result transmitted reference range: 166 - 358 10*3/?L. The reference range was not used to interpret this result as normal/abnormal. MPV (test code = 82326-1) 9.9 fL 9.5-12.9 NRBC/100 WBC (test code = 6784105003) See_Comment [Automated me ssage] The system which generated this result transmitted reference range: 0.0 - 10.0 /100 WBCs. The reference range was not used to interpret this result as normal/abnormal. NRBC x10^3 (test code = 3359261122) <0.01 See_Comment [Automated messa ge] The system which generated this result transmitted reference range: 10*3/?L. The reference range was not used to interpret this result as normal/abnormal. GRAN MAT (NEUT) % (test code = 770-8) 73.4 % IMM GRAN % (test code = 7509591525) 0.50 % LYMPH % (test code = 736-9) 18.3 % MONO % (test code = 5905-5) 6.2 % EOS % (test code = 713-8) 1.1 % BASO % (test code = 706-2) 0.5 % GRAN MAT x10^3(ANC) (test code = 1596295928) 6.12 10*3/uL 1.88-7.09 IMM GRAN x10^3 (test code = 3116719867) 0.04 10*3/uL 0-0.06 LYMPH x10^3 (test code = 731-0) 1.53 10*3/uL 1.32-3.29 MONO x10^3 (test code = 742-7) 0.52 10*3/uL 0.33-0.92 EOS x10^3 (test code = 711-2) 0.09 10*3/uL 0.03-0.39 BASO x10^3 (test code = 704-7) 0.04 10*3/uL 0.01-0.07 Lab Interpretation (test code = 99372-7) Abnormal [facility] [id number] 15:27:00* Test Item Value Reference Range Interpretation Comme nts POCT PREG (test code = 1605) Positive On board controls acceptable with C Line (test code = 3574) Yes POCT PREG LOT # (test code = 3575) POCT PREG TEST DATE ( test code = 3576) [facility] URINALYSIS W/O SPECIFIC [id number] 15:27:00* Test Item Value Reference Range Interpretation [...] = 3257) Neg Negative - Negati ve [facility] HospitalPODE [id number] 15:27:00* Test Item Value Reference Range Interpretation Comme nts POCT PREG (test code = 1605) Positive On board controls acceptable with C Line (test code = 3574) Yes POCT PREG LOT # (test code = 3575) POCT PREG TEST DATE ( test code = 3576) [facility] URINALYSIS W/O SPECIFIC [id number] 15:27:00* Test Item Value Reference Range Interpretation [...] = 3257) Neg Negative - Negati ve [facility] Notes Date/Time Note Provider Source 2023-12-08 12:15:00 Images from the original note were not included. Venipuncture collection performed by clean technique on the left anticubitus. Total of 1 attempts were made. Slight pressure and a bandage/dressing were applied to the site(s). The patient experienced no complications. The following specimens were processed according to instructions and sent to [facility] laboratories per lab order on 12/08/2023 : LT BLUE SST 2 RED LAV 1 PPT DK GREEN (LiHep) DK GREEN (SodH) VILLEGAS DK BLUE (K2) DK BLUE (S) ACD Blood Culture NIPT/NTD [facility] 2023-09-17 10:12:45 Addended by: TONG CARLSON on: 09/17/2023 10:12 AM Modules accepted: Orders [facility] 2023-09-17 09:14:01 Spoke with patient, states that she had [...] to ER. Given ER precautions. Patient verbalized understanding. Tong Carlson RN 09/17/2023 9:20 AM [facility] 2023-09-17 08:47:15 Patient states she had her IUD removed on 09/08. She states she started bleeding on and has been bleeding heavy with blood clots since. Nurse notified. [facility] Ninfa Myers [facility] 2023-08-10 09:01:30 Chief Complaint Patient presents with Dizziness Ear Problem Tingling sensation in both ears but worst in the right ear. Ringing of the ears. Talita Luu [facility] 2021-05-30 13:38:00 [id number] [facility] PATIENT NAME: TYRA RIBERA ADMIT DATE: 05/29/21 ACCOUNT NO: [id number] ROOM NO: V.3028 AGE: 30 REPORT TYPE: DISCHARGE SUMMARY REPORT SEX: F DATE OF : [birth year] ADMITTING PHYSICIAN:Enrike Yeboah DO ATTENDING PHYSICIAN:Enrike Yeboah DO ADMISSION DATE: 05/29/2021 DISCHARGE DATE: 05/30/2021 ADMISSION DIAGNOSIS: Morbid obesity. DISCHARGE DIAGNOSIS: Morbid obesity, status post Joy-en-Y gastric bypass. CONSULTANTS: Nutrition and dietary. PROCEDURE PERFORMED: Laparoscopic Joy-en-Y gastric bypass [100 cm Joy Limb]. DISPOSITION: Stable to discharge to home. MEDICATIONS: Please refer to MAR for home and discharge medications. BRIEF HOSPITAL COURSE: Tyra Ribera is a 30-year-old female with severe morbid obesity (BMI greater than 50), who has undergone multidisciplinary evaluation and cleared for Joy-en-Y gastric bypass. She was admitted through the preoperative department of [facility]. Please refer to operative note. Postoperatively, she was transferred to the third floor, surgical. Pain and nausea controlled. She did well. Postop day #1, she was in some pain. We adjusted her pain medications. She ambulated, did better as the day went along and complained of laparoscopic gas pain, which per nursing staff got better as the day progressed. Her labs were reviewed, please refer to EHR for pertinent labs and vital signs on the progress notes. Postop day #2, the patient was in better spirits. She still had some gas pain, felt like she has to pass flatus, but could not. Simethicone was prescribed and she had some relief. Pain is felt better controlled. She was doing much better than yesterday, ambulating easier. She wanted to shower, she is in better spirits. She was cleared for discharge. DISCHARGE MEDICATIONS: Antiemetics and pain control were given. She has followup instructions. Nutrition saw her and reiterated the importance of clinic diet instructions and postoperative diet instructions. All questions were answered and she was cleared for discharge. Dictated By: Enrike Yeboah DO WT: DS:DAMIEN/JOSE A/NTS Conf#: [id number]/DID#: [id number] PATIENT NAME: TYRA RIBERA Authenticated and Edited by Enrike Yeboah DO On 06/01/21 2:30:04 PM at 0237 PATIENT NAME: TYRA RIBERA [facility] 2021-05-29 11:29:00 [phone] [facility] PATIENT NAME: TYRA RIBERA ADMIT DATE: 05/29/21 ACCOUNT NO: [id number] ROOM NO: V3028 AGE: 30 REPORT TYPE: PROGRESS NOTE SEX: F DATE OF : [birth year] ADMITTING PHYSICIAN:Enrike Yeboah DO ATTENDING PHYSICIAN:Enrike Yeboah DO DATE: PROGRESS NOTE SUBJECTIVE: The patient complained of some discomfort and generalized pain, postoperative pain. She is tolerating a clear liquid diet. She has ambulated. She has not passed gas. Discussed with day nurse and she has been medicated for pain. Denies any nausea or vomiting, but overall not quite ready for discharge home quite yet. OBJECTIVE: VITAL SIGNS: Stable. She is afebrile, T-current is 36.3 degree Celsius, pulse 77, respirations 16, BP is 116/75. GENERAL: No acute distress. HEENT: Normocephalic, atraumatic. Pupils equal, react to light. HEART: S1 and S2. LUNGS: Clear, nonlabored. ABDOMEN:. Dressing is clean, dry, and intact. Bowel sounds hypoactive, soft. Postoperative incisional pain. EXTREMITIES: No clubbing, cyanosis, or edema. NEUROLOGIC: No focal deficits. LABORATORY DATA: Please refer to EHR for current labs. White count is 9.9, hemoglobin 13. Electrolytes are unremarkable. Blood glucose 82. IMPRESSION: 1. Postop day #1, gastric bypass. 2. For morbid obesity. PLAN: Continue with thiamine/banana bag. Continue with pain p.o. and IV pain medication. Continue clear liquid diet for about two to three days. The patient is not quite ready for discharge. She is struggling with pain control. She is ambulating, but not as much as expected. We will keep for one more day and evaluate with serial exams. Dictated By: Enrike Yeboah DO WT: PN:DAMIEN/JOSE A/HERNANDO Conf#: [id number]/DID#: [id number] PATIENT NAME: TYRA RIBERA Authenticated and Edited by Enrike Yeboah DO On 06/01/21 2:29:11 PM at 0231 PATIENT NAME: TYRA RIBERA [facility] 2021-05-28 20:08:00 [id number] [facility] PATIENT NAME: TYRA RIBERA ADMIT DATE: 05/29/21 ACCOUNT NO: [id number] ROOM NO: [facility] AGE: 30 REPORT TYPE: OPERATIVE REPORT SEX: F DATE OF : [birth year] ADMITTING PHYSICIAN:Enrike Yeboah DO ATTENDING PHYSICIAN:Enrike Yeboah DO OPERATION DATE: PREOPERATIVE DIAGNOSIS: Morbid obesity (body mass index greater than 50). POSTOPERATIVE DIAGNOSIS: Morbid obesity (body mass index greater than 50). PROCEDURE PERFORMED: Laparoscopic Joy-en-Y gastric bypass (100 cm Joy limb). SURGEON: Enrike Yeboah DO SUPERVISOR BORDER DEPARTMENT: Ash Larson. ANESTHESIA: General plus Marcaine. ESTIMATED BLOOD LOSS: 40 mL. FLUIDS: 2 liters. URINE OUTPUT: 400 mL. SPECIMENS: None. DISPOSITION: Hemodynamically stable to recovery. DRAINS: None. INDICATIONS: This patient is a 30-year-old female who has undergone the multidisciplinary evaluation for bariatric operation. She has been cleared by myself, dietitian and mental health. Labs performed. She had an EGD performed and she has been approved by her insurance for Joy-en-Y gastric bypass. Risks, benefits, and possible complications were explained to the patient on preoperative visit. She had a pre-assessment anesthesia visit as well. Sedation is pertinent, H and P has been updated and confirmed. She weighs 300 lbs today BMI: 51.5 PROCEDURE IN DETAIL: The patient was brought to the operating room and transferred to the operating room table. Monitoring devices were applied. She was placed under general endotracheal anesthesia. She was positioned, prepped and draped in manner for laparoscopic Joy-en-Y gastric bypass in lithotomy position, so split the legs and was secured. Tilt test performed. Demotte time-out taken, everyone involved in the case agreed on the patient and the procedure to be performed. Landmarks were identified preoperative xiphoid and belly button. All the measurements are appropriately done. Site of first entry PATIENT NAME: TYRA RIBERA was to the left of the umbilicus. I did this because the patient had a prior midline incision for a lap cholecystectomy and I felt there would be adhesions there, I was correct. Entry with a 4 mm insufflating port and a 0-degree laparoscope with some resistance and I saw some omentum, so I aborted and 1 went to the left upper quadrant (Velasquez's point). I was able to find much suhail here, insufflated to a pressure of 15 mmHg. I inspected that site and saw some adhesions. I placed all the ports under direct visualization, which included a 15-mm port and a 12-mm right quadrant and a 5-mm right upper quadrant ports. A 15-mm port was in the left upper quadrant. I took down those adhesions sharply with ultrasonic device and the Harmonic device. I was pleased with the tip down dissection. I took several pictures to show [...] was placed side by side. A jejunojejunostomy hfeh-nq-kmbd fashion was created, stapled. Byron enterotomy was closed with a suture (2-0 silk and a staple). Mesenteric defect was closed with a running suture of 3-0 silk. I inspected the Joy limb several times and was pleased with the way it lay out and the ease with which it reached the stomach. Step #2 was to create the gastrojejunostomy. Anesthesia helped us by passing the sizing balloon and helped me to size out the gastric pouch. The 20 mL of air was put in the balloon and this helped deleniate the gastric pouch. I then dissected at the lesser curvature, exposing the posterior. [...] RIBERA performed a screening endoscopy. My second pharmacy assistant placed a soft atraumatic boewl clamp [...] condition. Dictated By: Enrike Yeboah DO WT: OP:DAMIEN/JOSE A/HERNANDO Conf#: [id number]/DID#: [id number] Authenticated and Edited by Enrike Yeboah DO On 05/30/21 11:04:38 AM at 1107 PATIENT NAME: TYRA RIBERA [facility] 2021-04-04 16:50:00 [id number] [facility] PATIENT NAME: TYRA RIBERA ADMIT DATE: 04/04/21 ACCOUNT NO: [id number] ROOM NO: AGE: 30 REPORT TYPE: ENDOSCOPY REPORT SEX: F DATE OF : [birth year] ADMITTING PHYSICIAN: ATTENDING PHYSICIAN:Enrike Yeboah DO Patient Name: Tyra Ribera Attending MD: Enrike Yeboah MD Procedure Date: 04/04/2021 4:50 PM Date of : 1990 Procedure: Upper GI endoscopy Pre Procedure Diagnosis: Heartburn Assistants: Enrike Yeboah MD Anesthesia: Monitored Anesthesia Care Procedure: The benefits, risks, [...] of duodenum. The patient tolerated the procedure well. Post Procedure Findings: No gross lesions were noted in the second portion of the duodenum. This was biopsied with a cold forceps for Helicobacter pylori testing. Estimated blood loss was minimal. The esophagus was normal. The stomach was normal. The examined duodenum was normal. Complications: No immediate complications. Estimated Blood Loss: Estimated blood loss was minimal. Post Procedure Diagnosis: - No gross lesions in the second portion of the duodenum. Biopsied. - Normal esophagus. - Normal stomach. - Normal examined duodenum. - Normal esophagus, stomach, and examined duodenum. - GERD. Recommendation: - Written discharge instructions were provided to the patient. Dr. Enrike Yeboah PATIENT NAME: TYRA RIBERA Enrike Yeboah MD 04/04/2021 5:50:09 PM This report has been signed electronically. Number of Addenda: 0 Note Initiated On: 04/04/2021 4:50 PM Procedure Code(s): --- Professional --- 26100, Esophagogastroduodenoscopy, flexible, transoral; with biopsy, single or multiple CPT copyright 2020 [employer]. All rights reserved. The codes documented in this report are preliminary and upon emergency department director review may be revised to meet current compliance requirements. Scope In: Scope Out: Provation {[id number]}.pdf ProVation FT PDF at 1750 PATIENT NAME: TYRA RIBERA [facility] 2021-02-21 16:30:00 [id number] [address] PATIENT NAME: TYRA RIBERA ADMIT DATE: 02/21/21 ACCOUNT NO: [id number] ROOM NO: AGE: 30 REPORT TYPE: OPERATIVE REPORT SEX: F ADMITTING PHYSICIAN: ATTENDING PHYSICIAN: Philly Montemayor MD OPERATION DATE: 02/21/2021 PREOPERATIVE DIAGNOSES: 1. Menorrhagia. 2. Fibroid uterus. 3. Cervical stenosis. 4. Status post multiple C-sections. POSTOPERATIVE DIAGNOSES: 1. Menorrhagia. 2. Fibroid uterus. 3. Cervical stenosis. 4. Status post multiple C-sections. PROCEDURES PERFORMED: Diagnostic hysteroscopy, insertion of the IUD (Liletta). SURGEON: Philly Montemayor MD. SUPERVISOR BORDER DEPARTMENT: ANESTHESIA: General with LMA. SPECIMENS: No specimens. COMPLICATIONS: None. DRAINS: None. CONDITION: Stable. IMPLANTS Liletta IUD. INDICATIONS: The patient is a 300+ pound morbidly obese patient with menorrhagia and fibroid uterus. After endometrial sampling was performed and there was no atypia or malignancy, she was recommended to have an IUD insertion. I tried this in the office. Due to the high position of the cervix as well as her body habitus and her scars, the anteflexion of the uterus, unable to do this procedure, so consented her to come to the hospital for diagnostic hysteroscopy to confirm that the cavity was undistorted and the direction of the canal was confirmed, minimizing the risk of perforation and complications. Bleeding, infection, and perforation of the uterus were all reviewed including anesthesia complications, consented and brought to the hospital. PATIENT NAME: TYRA RIBERA PROCEDURE IN DETAIL: After informed consent was verified, she was taken back to the OR, placed in supine position on the operating table. General anesthesia was given. She was placed in dorsal lithotomy position using Arie stirrups. Vulva, vagina, and perineum were prepped and draped in sterile fashion. Speculum placed to expose the cervix. Anterior lip was grasped with Allis clamps. Diagnostic hysteroscope was introduced through the cervical canal into the uterine cavity and the speculum had to be removed in order for me to insert inside the extremely anteflexed and high cavity. Once the cavity was entered, it was undistorted. No intracavitary masses. Both tubal ostia were well visualized. Directly with the hysteroscope, the uterus was sounded to the fundus. It was 11.5 cm. Once the scope was removed, Liletta was inserted after dilating the cervix to 16-Slovak without any problems. Then, the device was deployed without any glitches, removed smoothly, confirmed to be the tip of the dilator, checked to make sure that this was not pulled back into the cervix. Once this was confirmed, the strings were cut at 4 cm. Instruments were removed. Instrument, needle, and sponge counts were done and were correct at the end of case. The patient tolerated the procedure well. She was recovered from anesthesia and taken to PACU in stable condition, Toradol was given for pain control. She will follow up with me in 1 month for string check. All precautions have been given. Dictated By: Philly Montemayor MD WT: OP:LROSSANA/AVERY/HERNANDO Conf#: [id number]/DID#: [id number] Authenticated by Philly Montemayor MD On 03/28/2021 04:26:53 PM at 0426 PATIENT NAME: TYRA RIBERA [facility] 2021-02-21 15:37:00 [facility] ([facility] Brief Op Note REPORT#:[id number] REPORT STATUS: Signed DATE:02/21/21 TIME:153 PATIENT: TYRA RIBERA UNIT #: [id number] ROOM/BED: : 90 AGE: 30 SEX: F ATTEND: Philly Montemayor MD [facility] AUTHOR: Philly Montemayor MD * ALL edits or amendments must be made on the electronic/computer document * Op/Inv Proc Note - Brief Pre-procedure diagnosis: menorrhagis, control Post-procedure diagnosis: same as pre procedure dx Procedures performed: diagnostic hysteroscopy IUD Liletta insertion Primary Surgeon: albina Rn Field Case Manager(s): none (weatheral) Anesthesia: general anesthesia Findings: IUD positioned well, sounding length 11.5cm, inserted to 11cm, aust[place] cervix, significantly AF AV uterus and cavity, no masses, no cavity distortion, cervix elongated Complications: none Estimated blood loss in ml's: none Specimens removed/altered: none Wound class: clean-contaminated Disposition: plan to D/C home Dictation number: [id number] at 1630 RPT #: [id number] END OF REPORT HCAPM
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
--- NOTE | 2024-03-07 15:44 | RAD REPORT ---
EXAM DESCRIPTION: MRI - C Spine Wo Cont - 03/07/2024 3:20 pm CLINICAL HISTORY: Right arm numbness COMPARISON: CT March 07, 2020 for TECHNIQUE: Magnetic resonance imaging of the cervical spine was obtained. Sagittal and axial images completed. FINDINGS: No significant abnormality craniocervical junction C2-3, C3-4 and C4-5 are unremarkable 8 x 3 x 12 (cc by AP by trans) subligamentous broad-based disc herniation C5-6. .It extends to the ri ght and left of midline. Small osteophytes are present C6-7 and C7-T1 unremarkable The spinal cord is normal caliber and signal. No significant abnormal signal within the bones is noted. IMPRESSION: Small to moderate broad-based subligamentous disc herniation C5-6
[2024-03-07] MEDS ORDERED: METHOCARBAMOL 1,000 MG/10 ML VIAL ONE (15:57)
[2024-03-07] MEDS ORDERED: FENTANYL CITR 100 MCG/2 ML ONE (15:57)
[2024-03-07] MEDS ORDERED: NA CHLORIDE 0.9% 100 ML ONE (15:58)
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
[2024-03-07 19:09] VITALS: TEMP 97.6
[2024-03-07 19:12] VITALS: BP 117/77; O2SAT 100
== END 2024-03-07 18:24 | disposition home or self-care (01) ==
LOC: ER 14:15
DX: M50.10 Cervical disc disorder with radiculopathy, unspecified cervical region (principal)
CPT/HCPCS: 96365; 70450; 72125; 72141; 96375; 99284; J3010; J2800

== ENCOUNTER 2024-04-11 09:16 | Emergency (ER) | payer OTHER ==
--- OUTSIDE RECORDS SUMMARY | 2024-04-11 09:23 | XMS REPORT | Continuity of Care Document ---
Author Name Unknown Address [address] [facility] Ranjit. [address] th[address] Address [address] [facility]. 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 Name Role Phone ADALI RIBERA Primary Care Physician CARLI Shabazz Attending Clinician CARLI Shabazz Attending Clinician MalihavaHuan Caruso Attending Clinician Unavailable MD MYLA Attending Clinician Unavailab CECIL Sanchez Attending Clinician Unavailab le Doctor Unassigned, [place] Attending Clinician U navailable ENG Attending Clinician Unavailable ADALI RIBERA Attending Clinician Unavailab le [email or web address] Attending Clinician Unavaila enzo LAB90 Attending Clinician Unavailable Obinna Obonoslya Amy Attending Clinician Unavail able Philly Montemayor Attending Clinician Un available LINDY GODWIN Attending Clinician Unavail able Lindy Moy Attending Clinician + Visit, JaneyRmmaria alejandra Nurse Attending Clinician Unava ilannmarie Maki MD, Georges Attending Clinician + Ultrasound, JaneyMfyamil Attending Clinician Unavailnati Patricio MD, Allen F Attending Clinician [phone] CHRISTINA THOMPSON Attending Clinician Unavailable Kylie, Huan Romero Mfm Attending Clinician Kwame Mace MD, Mike Kinney Attending Clinician [phone] Risk, Iig-Nnzsf-Po/High Attending Clinician Unatova richards Catinaoctavio [facility] Aubree Attending Clinician Rehana Hinds Attending Clinician [phone] Randolph Szymanski Attending Clinician [phone] CHRISTINA THOMPSON Admitting Clinician Unavailable CARLI GABRIEL Admitting Clinician Miranda gonzales [email or web address] Admitting Clinician UnavailEnrike Szymanski I Admitting Clinician Unavail able Rachel Maki MD, Destini Admitting Clinician + Payers Payer Name Policy Type Policy Number Effective Date Expirati on Date Source [facility] MEDICAID [id number] 2019 00:00:00 [facility] - OUT OF STATE [id number] 2023 00:00:00 [facility] [id number] 2020 00:00:00 2020 00:00:00 [facility] [id number] 2023 00:00:00 [employer] 2 [id number] 2023 00:00:00 Problems Condition Name Condition Details Condition Category Status Onset Date Resolution Date Last Treatment Date Treating Clinician Comments Source Menorrhagi a with regular cycle Menorrhagi a with regular cycle Disease Active 6 00:00: 00 [facility] Enlarged uterus Enlarged uterus Disease Active 6- 00:00: 00 [facility] Sinus infection Sinus infection Disease Active 9- 00:00: 00 [facility] Breakthrou gh bleeding on Nexplanon Breakthrou gh bleeding on Nexplanon Disease Active 8-13 00:00: 00 [facility] Nexplanon insertion Nexplanon insertion Disease Active 2020-0 7-30 00:00: 00 [facility] Nexplanon removal Nexplanon removal Disease Active 0 730 00:00: 00 [facility] Other general counseling and advice for contracept richar management Other general counseling and advice for contracept richar management Disease Active 0 7 00:00: 00 [facility] Morbid obesity with body mass index of 50 or higher Morbid obesity with body mass index of 50 or higher Disease Active 3-10 00:00: 00 [facility] Gestationa l hypertensi on, antepartum Gestationa l hypertensi on, antepartum Disease Active 3-10 00:00: 00 [facility] Morbid obesity with BMI of 45.0-49.9, adult Morbid obesity with BMI of 45.0-49.9, adult Disease Active 3-10 00:00: 00 [facility] Obesity in Obesity in Disease Active 0 7-17 00:00: 00 [facility] Tobacco use during Tobacco use during Disease Active 0 7-17 00:00: 00 [facility] Tobacco use Tobacco use Disease Active 0 7-17 00:00: 00 [facility] Tobacco use Tobacco use Disease Active 20190 717 00:00: 00 [facility] care and examinatio n of lactating mother care and examinatio n of lactating mother Disease Resolve d 4- 00:00: 00 2020-02-02 00:00:00 2020-02-02 10:01:05 [facility] 37 weeks gestation of 37 weeks gestation of Disease Resolve d 2019-0 3-10 00:00: 00 2019-10-12 00:00:00 2019-10-12 09:56:06 [facility] URI (upper respirator y infection) URI (upper respirator y infection) Disease Resolve d 2018-07 2-30 00:00: 00 2019-10-12 00:00:00 2019-10-12 09:54:37 [facility] Generalize d body aches Generalize d body aches Disease Resolve d 2018-07 00:00: 00 2019-10-12 00:00:00 2019-10-12 09:56:00 [facility] Influenza B Influenza B Disease Resolve d 2018-07 2 00:00: 00 2019-10-12 00:00:00 2019-10-12 09:55:44 [facility] Screening, , isoimmuniz ation Screening, , isoimmuniz ation Disease Resolve d 2018-07 007 00:00: 00 2019-10-12 00:00:00 2019-10-12 09:54:50 [facility] BMI 50.0-59.9, adult BMI 50.0-59.9, adult Disease Resolve d 2018-07 007 00:00: 00 2019-10-12 00:00:00 2019-10-12 09:56:01 [facility] Supervisio n of high-risk Supervisio n of high-risk Disease Resolve d 7- 00:00: 00 2019-10-12 00:00:00 2019-10-12 09:54:48 [facility] Multiparit y Multiparit y Disease Resolve d 717 00:00: 00 2019-10-12 00:00:00 2019-10-12 09:55:30 [facility] History of section History of section Disease Resolve d 7 00:00: 00 2019-10-12 00:00:00 2019-10-12 09:55:45 Overview: X2 pending ROR [facility] Morbid obesity Morbid obesity Disease Resolve d 01-26 00:00: 00 2019-10-12 00:00:00 2019-10-12 09:55:36 [facility] Chest pain Chest pain Disease Resolve d 2018-07 00:00: 00 2019-07-11 00:00:00 2019-07-11 22:08:58 [facility] Allergies, Adverse Reactions, Alerts Allergy Name Allergy Type Status Severity Reaction(s) Onset Date Inactive Date Treating Clinician Comments Source LATEX DRUG INGREDI Active Other-Cmnt 2 00:00: 00 [facility] NSAIDS (NON-RANJIT ROIDAL ANTI-INF LAMMATOR Y DRUG) Drug Class Active Other-Cmnt 2- 00:00: 00 [facility] Latex Propensi ty to adverse reaction s Active Other - See comments 2- 00:00: 00 [facility] Nsaids (Non-Ranjit roidal Anti-Inf lammator y Drug) Propensi ty to adverse reaction s Active Other - See comments 2- 00:00: 00 [facility] Latex Propensi ty to adverse reaction s Active Contact Dermatitis 1- 00:00: 00 burning Christine Seybold - Externa l Nonstero idal anti-inf lammator y drug [Other] Propensi ty to adverse reaction s Active 2022-07 0-09 00:00: 00 Hx of bariatric surgery and cannot take this. Christine Jacobson - Externa l Penicill ins Propensi ty to adverse reaction s Active 2022-07 0-09 00:00: 00 Christine Gastelumold - Externa l Penicill ins DA Active U 0 8-11 00:00: 00 [facility] latex DA Active U 0 8-11 00:00: 00 [facility] Penicill ins DA Active U VOMITING 0 8-11 00:00: 00 [facility] latex DA Active U SWELLING 0 8-11 00:00: 00 [facility] Penicill in Propensi ty to adverse reaction s Active Nausea and/or Vomiting 17 00:00: 00 [facility] Penicill in Propensi ty to adverse reaction s Active Nausea and/or Vomiting 17 00:00: 00 [facility] PENICILL IN DRUG INGREDI Active N/V 01-26 00:00: 00 [facility] Social History Social Habit Start Date Stop Date Quantity Comments Source ASSERTION 2019-01-13 00:00:00 [facility] History of tobacco use 2007-01-26 00:00:00 Cigarette Smoker [facility] History SDOH Alcohol Binge [facility] Exposure to SARS-CoV-2 (event) Not sure [facility] SD[facility] Alcohol Std Drinks General acute hospital Alcoholic beverage intake 2024-01-07 00:00:00 2024-01-07 00:00:00 Ex-drinker (finding) [facility] Tobacco use and exposure 2023-12-08 00:00:00 2023-12-08 00:00:00 Smokeless tobacco non-user [facility] Cigarettes smoked current (pack per day) - Reported 2023-12-08 00:00:00 2023-12-08 00:00:00 [facility] Cigarette pack-years 2023-12-08 00:00:00 2023-12-08 00:00:00 [facility] Tobacco Comment 2023-09-08 00:00:00 2023-09-08 00:00:00 1 pack a day [facility] Alcohol intake 2023-09-08 00:00:00 2023-09-08 00:00:00 Ex-drinker (finding) [facility] History of Social function 2019-11-15 00:00:00 2019-11-15 00:00:00 [facility] History SDOH Alcohol Frequency 2019-01-26 00:00:00 2019-01-26 00:00:00 1 [facility] Sex Assigned At 1990 00:00:00 1990 00:00:00 Christine Jacobson - External Smoking Status Start Date Stop Date Source Smokes tobacco daily 2023-12-08 00:00:00 [facility] Medications Ordered Medication Name Filled Medication Name Start Date Stop Date Current Medication? Ordering Clinician Indication Dosage Frequency Signature (SIG) Comments Components Source miSOPROStoL 200 mcg tablet 01-06 00:00: 00 Yes [id number] Take one tablet the night before IUD insertion procedure and take one tablet the morning of the IUD insertion procedure. This is not for abortive treatment; patient will have IUD insertion. [facility] Tizanidine HCl 4 MG oral Tablet 2022-07 00:00: 00 Yes [id number] 4mg Q.25D Take 1 tablet (4 mg total) by mouth every 6 hours as needed for muscle spasms. Christine tyler Gabapentin 100 MG oral Capsule 2022-07 0- 00:00: 00 Yes [id number] 100mg Take 1 capsule (100 mg total) by mouth 3 times daily. Christine tyler Meclizine HCl 25 MG oral Tablet 2022-07 0 00:00: 00 Yes [id number] 25mg [id number] 3D Take 1 tablet (25 mg total) by mouth 3 times daily as needed. Christine tyler Pregabalin 50 MG oral Capsule 8- 00:00: 00 04-20 00:00 :00 No Christine tyler Phentermine HCl 37.5 MG oral Tablet 8-15 00:00: 00 04-20 00:00 :00 No Christine tyler levonorgest rel-ethinyl estradiol (SRONYX) 0.1-20 mg-mcg per tablet 08-09 00:00: 00 09-08 00:00 :00 No [id number] 1{tbl} Take 1 tablet by mouth daily. [facility] azithromyci n (ZITHROMAX Z-THA) 250 mg tablet 9- 00:00: 00 09-08 00:00 :00 No [id number] 250mg Take 1 tablet by mouth daily. Take 500 mg day 1, then 250 mg days [address] [facility] estradiol 2 mg tablet 8-13 00:00: 00 03-16 04:59 :00 No [id number] 2mg Take 1 tablet by mouth daily for [address] [facility] etonogestre l (NEXPLANON) implant 68 mg 02-08 15:30: 00 02-08 14:28 :[address] [facility] medroxyPROG ESTERone (DEPO-PROVE RA) injection 150 mg 5-05 15:30: 00 09-08 16:16 :56 No [id number] 150mg [facility] benzocaine- menthol (CEPACOL SORE THROAT (DEANNA-MEN)) lozenge 1 Lozenge 09-21 17:42: 16 Yes 1{lozen ge} 1 Lozenge, Oral, Q4HPRN, Starting Denisse 09/22/19 at 1242, Until Discontinu ed, Routine, Sore throat [facility] vitamin w/FA tablet 09-21 00:00: 00 Yes [id number] 1{tbl} Take 1 tablet by mouth daily. May substitute for what is in stock and covered by patient plan [facility] docusate calcium 240 mg capsule 09-21 00:00: 09-08 00:00 :00 No [id number] 240mg Take 1 capsule by mouth once daily as needed for Constipati on. May substitute for what is in stock and covered by patient plan [facility] ferrous sulfate 325 mg (65 mg iron) tablet 09-21 00:00: 00 09-08 00:00 :00 No [id number] 325mg Take 1 tablet by mouth 2 (two) times daily. May substitute for what is in stock and covered by patient plan [facility] ibuprofen 600 mg tablet 09-21 00:00: 00 09-08 00:00 :00 No [id number] 600mg Take 1 tablet by mouth every 6 (six) hours as needed (Pain). Take with food or milk. [facility] vitamin w/FA tablet 09-21 00:00: 00 09-08 00:00 :00 No [id number] 1{tbl} Take 1 tablet by mouth daily. May substitute for what is in stock and covered by patient plan [facility] HYDROcodone -acetaminop hen 5-325 mg tablet 09-21 00:00: 00 09-29 04:59 :00 No [id number] 1{tbl} Take 1 tablet by mouth every 6 (six) hours as needed (Pain scale > 4) for up to 7 days. Do not exceed 3 grams of acetaminop hen in [address] [facility] rho(D) immune globulin (RHOGAM) syringe 300 mcg 09-20 02:59: 46 Yes 300ug 300 mcg, Intramuscu lar, ONCE, For 1 dose, Conditiona l, Routine [facility] human papillomav vac,9-aide(P F) (GARDASIL-9 ) syringe 0.5 mL 09-20 02:59: 41 Yes .5mL 0.5 mL, Intramuscu lar, ONCE-PRIOR TO DISCHARGE, 1 dose, Starting Thu09/20/19 at 2158, Until Discontinu ed, Routine, Give vaccine prior to discharge [facility] HYDROcodone -acetaminop hen (NORCO 5) 5-325 mg tablet 2 tablet 09-20 02:59: 41 Yes 2{tbl} 2 tablet, Oral, Q6HPRN, Starting Thu09/20/19 at 2158, Until Discontinu ed, Routine, Pain (scale 7-10), If uncontroll ed by Ibuprofen [facility] HYDROcodone -acetaminop hen (NORCO 5) 5-325 mg tablet 1 tablet 09-20 02:59: 41 Yes 1{tbl} 1 tablet, Oral, Q6HPRN, Starting Thu09/20/19 at 2158, Until Discontinu ed, Routine, Pain (scale 4-6), If uncontroll ed by Ibuprofen [facility] ibuprofen (IBU) tablet 600 mg 09-20 02:59: 41 Yes 600mg 600 mg, Oral, Q6HPRN, Starting Thu09/20/19 at 2158, Until Discontinu ed, Routine, Pain (scale 1-3) [facility] ondansetron (ZOFRAN (PF)) injection 4 mg 09-20 02:59: 41 Yes 4mg 4 mg, Slow IV Push, Q8HPRN, Starting Thu09/20/19 at 2158, Until Discontinu ed, Routine, Nausea and Vomiting (N/V) [facility] simethicone (GAS RELIEF (SIMETHICON E)) chewable tablet 160 mg 09-20 02:59: 41 Yes 160mg 160 mg, Oral, PC+HSPRN, Starting Thu09/20/19 at 2158, Until Discontinu ed, Routine, Gas [facility] magnesium hydroxide (MILK OF MAGNESIA) 400 mg/5 mL suspension 30 mL 09-20 02:59: 41 Yes 30mL 30 mL, Oral, QDAILYPRN, Starting Thu09/20/19 at 2158, Until Discontinu ed, Routine, Constipati on [facility] diphenhydrA MINE-0.9 % sod.chlr (BENADRYL) 25 mg/50 mL piggyback 25 mg 09-20 02:59: 40 Yes 25mg 25 mg, IV Piggyback, Administer over 30 Minutes, Q6HPRN, 1 dose, Starting Thu09/20/19 at 2158, Until Discontinu ed, Routine, Itching [facility] diphenhydrA MINE (BENADRYL) tablet 25 mg 09-20 02:59: 40 Yes 25mg 25 mg, Oral, Q6HPRN, Starting Thu09/20/19 at 2158, Until Discontinu ed, Routine, Sleep, Itching [facility] bisacodyL (DULCOLAX) suppository 10 mg 09-20 02:59: 40 Yes 10mg 10 mg, Rectal, QDAILYPRN, Starting Thu09/20/19 at 2158, Until Discontinu ed, Routine, Constipati on [facility] docusate calcium (SURFAK) capsule 240 mg 09-20 02:59: 40 Yes 240mg 240 mg, Oral, QDAILYPRN, Starting Thu09/20/19 at 2158, Until Discontinu ed, Routine, Constipati on [facility] naloxone (NARCAN) injection 0.4 mg 09-20 01:12: 35 09-22 01:11 :35 No .4mg 0.4 mg, Slow IV Push, PRN - SEE INSTRUCTIO NS, Starting e 09/20/19 at 2011, Until Denisse 09/22/19 at 2010, Routine, Analgesia Recovery, PACU [facility] ketorolac (TORADOL) injection 30 mg 09-20 01:12: 35 09-20 01:45 :00 No 30mg 30 mg, Slow IV Push, PRN, 1 dose, Starting 09/20/19 at 2012, Until 09/20/19 at 204, Routine, Pain (scale 7-10), PACU
Fa culty member approving Restricted medication : JOSÉ MIGUEL LEE [facility] Investigati onal Drug- tranexamic acid 1 gram or placebo in NS 50 mL 09-19 21:45: 00 09-20 02:59 :47 No 1g 1 g, IV Infusion, ONCE, 1 dose, 09/20/19 at 1645
Pr incipal investigat or: ERLINDA VALENZUELA [facility] metoclopram emile HCl (REGLAN) 10 mg in NaCl 0.9% (NS) piggyback 09-19 17:30: 00 09-19 17:54 :00 No 10mg 10 mg, IV Piggyback, ONCE, 1 dose, 09/20/19 at 1230, [address] [facility] famotidine (PEPCID (PF)) injection 20 mg 09-19 17:30: 00 09-19 18:26 :00 No 20mg 20 mg, IV Piggyback, ONCE, 1 dose, 09/20/19 at 1230, Routine [facility] gentamicin 40 mg/mL 480 mg in NaCl 0.9% (NS) 250 mL IV infusion 09-19 16:26: 09 09-19 22:43 :00 No 5mg/kg 480 mg (rounded from 470 mg = 5 mg/kg ?94 kg Adjusted weight), IV Infusion, O.R. HOLDING ONCE, 1 dose, Starting 09/20/19 at 1126, Until Discontinu ed, 250 mL
Reas on for Anti-Infec tive: Surgical Prophylaxi s
Surgi daisy Prophylaxi s: SLEEVE SETTER
Duration of therapy: within [address] [facility] lactated ringers IV infusion 1,000 mL 09-19 16:00: 00 09-20 02:59 :47 No 1000mL at 125 mL/hr, 1,000 mL, IV Infusion, CONTINUOUS , Starting 09/20/19 at 1100, Until 09/20/19 at 2159, Routine [facility] acetaminoph en (TYLENOL) tablet 650 mg 09-19 16:00: 00 09-19 21:41 :00 No 650mg 650 mg, Oral, ONCE, 1 dose, 09/20/19 at 1100, Routine [facility] sodium citrate-cit shana acid (BICITRA) 500-334 mg/5 mL solution 30 mL 09-19 15:53: 42 09-19 22:23 :00 No 30mL 30 mL, Oral, PRE-PROCED URE ONCE, 1 dose, Starting 09/20/19 at 1053, Until Denisse 09/22/19 at 2359, Routine, Surgery/Pr ocedure [facility] guaiFENesin 100 mg/5 mL solution 2018-07 2- 00:00: 00 09-21 00:00 :00 No [id number] 100mg Take 5 mL by mouth every 4 (four) hours. [facility] guaifenesin (ROBITUSSIN CHEST CONGESTION ORAL) 717 15:31: 10 Yes Take by mouth. [facility] Immunizations Ordered Immunization Name Filled Immunization Name Date Status Comments Source TDAP (ADACEL) VACCINE 2019-07-21 00:00:00 Completed [facility] TDAP (ADACEL) VACCINE 2019-07-21 00:00:00 Completed [facility] TDAP (ADACEL) VACCINE 2019-07-21 00:00:00 Completed [facility] TDAP (ADACEL) VACCINE 2019-07-21 00:00:00 Completed [facility] TDAP (ADACEL) VACCINE 2019-07-21 00:00:00 Completed [facility] TDAP (ADACEL) VACCINE 2019-07-21 00:00:00 Completed [facility] TDAP (ADACEL) VACCINE 2019-07-21 00:00:00 Completed [facility] TDAP (ADACEL) VACCINE 2019-07-21 00:00:00 Completed [facility] TDAP (ADACEL) VACCINE 2019-07-21 00:00:00 Completed [facility] TDAP (ADACEL) VACCINE 2019-07-21 00:00:00 Completed [facility] TDAP (ADACEL) VACCINE 2019-07-21 00:00:00 Completed [facility] TDAP (ADACEL) VACCINE 2019-07-21 00:00:00 Completed [facility] TDAP (ADACEL) VACCINE 2019-07-21 00:00:00 Completed [facility] TDAP (ADACEL) VACCINE 2019-07-21 00:00:00 Completed [facility] TDAP (ADACEL) VACCINE 2019-07-21 00:00:00 Completed [facility] TDAP (ADACEL) VACCINE 2019-07-21 00:00:00 Completed [facility] TDAP (ADACEL) VACCINE 2019-07-21 00:00:00 Completed [facility] TDAP (ADACEL) VACCINE 2019-07-21 00:00:00 Completed [facility] TDAP (ADACEL) VACCINE 2019-07-21 00:00:00 Completed [facility] TDAP (ADACEL) VACCINE 2019-07-21 00:00:00 Completed [facility] TDAP (ADACEL) VACCINE 2019-07-21 00:00:00 Completed [facility] TDAP (ADACEL) VACCINE 2019-07-21 00:00:00 Completed [facility] TDAP (ADACEL) VACCINE 2019-07-21 00:00:00 Completed [facility] TDAP (ADACEL) VACCINE 2019-07-21 00:00:00 Completed [facility] TDAP (ADACEL) VACCINE 2019-07-21 00:00:00 Completed [facility] TDAP (ADACEL) VACCINE 2019-07-21 00:00:00 Completed [facility] TDAP (ADACEL) VACCINE 2019-07-21 00:00:00 Completed [facility] TDAP (ADACEL) VACCINE 2019-07-21 00:00:00 Completed [facility] TDAP (ADACEL) VACCINE 2019-07-21 00:00:00 Completed [facility] TDAP (ADACEL) VACCINE 2019-07-21 00:00:00 Completed [facility] TDAP (ADACEL) VACCINE 2019-07-21 00:00:00 Completed [facility] TDAP (ADACEL) VACCINE 2019-07-21 00:00:00 Completed [facility] TDAP (ADACEL) VACCINE 2019-07-21 00:00:00 Completed [facility] TDAP (ADACEL) VACCINE 2019-07-21 00:00:00 Completed [facility] TDAP (ADACEL) VACCINE 2019-07-21 00:00:00 Completed [facility] TDAP (ADACEL) VACCINE 2019-07-21 00:00:00 Completed [facility] TDAP (ADACEL) VACCINE 2019-07-21 00:00:00 Completed [facility] TDAP (ADACEL) VACCINE Unknown Completed [facility] TDAP (ADACEL) VACCINE Unknown Completed [facility] TDAP (ADACEL) VACCINE Unknown Completed [facility] TDAP (ADACEL) VACCINE Unknown Completed [facility] TDAP (ADACEL) VACCINE Unknown Completed [facility] TDAP (ADACEL) VACCINE Unknown Completed [facility] TDAP (ADACEL) VACCINE Unknown Completed [facility] TDAP (ADACEL) VACCINE Unknown Completed [facility] TDAP (ADACEL) VACCINE Unknown Completed [facility] TDAP (ADACEL) VACCINE Unknown Completed [facility] Vital Signs Vital Name Observation Time Observation Value Comments S ource Systolic blood pressure 2024-01-07 18:06:00 107 mm[Hg] [facility] Diastolic blood pressure 2024-01-07 18:06:00 74 mm[Hg] [facility] Heart rate 2024-01-07 18:06:00 95 /min [facility] Body temperature 2024-01-07 18:06:00 36.61 Qian [facility] Respiratory rate 2024-01-07 18:06:00 16 /min [facility] Body height 2024-01-07 18:06:00 162.6 cm [facility] Body weight 2024-01-07 18:06:00 93.305 kg [facility] BMI 2024-01-07 18:06:00 35.31 kg/m2 [facility] Oxygen saturation in Arterial blood by Pulse oximetry 2024-01-07 18:06:00 97 /min [facility] Systolic blood pressure 2023-12-08 14:49:00 102 mm[Hg] [facility] Diastolic blood pressure 2023-12-08 14:49:00 76 mm[Hg] [facility] Heart rate 2023-12-08 14:49:00 76 /min [facility]ive [facility] Body temperature 2023-12-08 14:49:00 36.72 Qian [facility] Respiratory rate 2023-12-08 14:49:00 18 /min [facility] Body height 2023-12-08 14:49:00 162.6 cm [facility] Body weight 2023-12-08 14:49:00 92.715 kg [facility] BMI 2023-12-08 14:49:00 35.09 kg/m2 [facility] Systolic blood pressure 2023-09-08 15:37:00 105 mm[Hg] [facility] Diastolic blood pressure 2023-09-08 15:37:00 65 mm[Hg] [facility] Heart rate 2023-09-08 15:37:00 73 /min [facility] Body temperature 2023-09-08 15:37:00 36.94 Qian [facility] Respiratory rate 2023-09-08 15:37:00 16 /min [facility] Body height 2023-09-08 15:37:00 162.6 cm [facility] Body weight 2023-09-08 15:37:00 91.627 kg [facility] BMI 2023-09-08 15:37:00 34.67 kg/m2 [facility] Oxygen saturation in Arterial blood by Pulse oximetry 2023-09-08 15:37:00 98 /min [facility] Systolic blood pressure 2023-04-20 21:09:00 118 mm[Hg] Christine yo - External Diastolic blood pressure 2023-04-20 21:09:00 74 mm[Hg] Christine Gastelumo ld - External Heart rate 2023-04-20 21:09:00 88 /min Greg arechiga Seybold - External Body temperature 2023-04-20 21:09:00 36.78 Qian Christine Raeybold - External Respiratory rate 2023-04-20 21:09:00 18 /min Christine Raeybold - External Body height 2023-04-20 21:09:00 160 cm Neetu salazar Seybold - External Body weight 2023-04-20 21:09:00 89.018 kg Neetu salazar Seybold - External BMI 2023-04-20 21:09:00 34.76 kg/m2 Neetu salazar Seybold - External Oxygen saturation in Arterial blood by Pulse oximetry 2023-04-20 21:09:00 98 /min Christine Gastelumo ld - External Systolic blood pressure 2020-08-09 15:08:00 127 mm[Hg] [facility] Diastolic blood pressure 2020-08-09 15:08:00 80 mm[Hg] [facility] Heart rate 2020-08-09 15:08:00 112 /min [facility] Body temperature 2020-08-09 15:08:00 36.33 Qian [facility] Respiratory rate 2020-08-09 15:08:00 16 /min [facility] Body height 2020-08-09 15:08:00 164.6 cm [facility] Body weight 2020-08-09 15:08:00 129.956 kg [facility] BMI 2020-08-09 15:08:00 47.97 kg/m2 [facility] Systolic blood pressure 2020-08-09 15:08:00 127 mm[Hg] [facility] Diastolic blood pressure 2020-08-09 15:08:00 80 mm[Hg] [facility] Heart rate 2020-08-09 15:08:00 112 /min [facility] [facility] Body temperature 2020-08-09 15:08:00 36.33 Qian [facility] Respiratory rate 2020-08-09 15:08:00 16 /min [facility] Body height 2020-08-09 15:08:00 164.6 cm [facility] Body weight 2020-08-09 15:08:00 129.956 kg [facility] BMI 2020-08-09 15:08:00 47.97 kg/m2 [facility] Systolic blood pressure 2020-04-06 13:20:00 115 mm[Hg] [facility] Diastolic blood pressure 2020-04-06 13:20:00 75 mm[Hg] [facility] Heart rate 2020-04-06 13:20:00 71 /min [facility] Body temperature 2020-04-06 13:20:00 36.78 Qian [facility] Respiratory rate 2020-04-06 13:20:00 16 /min [facility] Body height 2020-04-06 13:20:00 162.6 cm [facility] Body weight 2020-04-06 13:20:00 127.325 kg [facility] BMI 2020-04-06 13:20:00 48.18 kg/m2 [facility] Systolic blood pressure 2020-02-23 13:24:00 122 mm[Hg] [facility] Diastolic blood pressure 2020-02-23 13:24:00 71 mm[Hg] [facility] Heart rate 2020-02-23 13:24:00 64 /min [facility] 2020-02-23 13:24:00 36.61 Qian [facility] Respiratory rate 2020-02-23 13:24:00 16 /min [facility] Body height 2020-02-23 13:24:00 162.6 cm [facility] Body weight 2020-02-23 13:24:00 127.574 kg [facility] BMI 2020-02-23 13:24:00 48.28 kg/m2 [facility] Systolic blood pressure 2020-02-09 13:45:00 106 mm[Hg] [facility] Diastolic blood pressure 2020-02-09 13:45:00 75 mm[Hg] [facility] Heart rate 2020-02-09 13:45:00 83 /min [facility] temperature 2020-02-09 13:45:00 36.44 Qian [facility] Respiratory rate 2020-02-09 13:45:00 16 /min [facility] Body height 2020-02-09 13:45:00 162.6 cm [facility] weight 2020-02-09 13:45:00 129.36 kg [facility] BMI 2020-02-09 13:45:00 48.95 kg/m2 [facility] Systolic blood pressure 2020-02-02 14:20:00 132 mm[Hg] [facility] Diastolic blood pressure 2020-02-02 14:20:00 82 mm[Hg] [facility] Heart rate 2020-02-02 14:20:00 72 /min [facility] Body temperature 2020-02-02 14:20:00 36.67 Qian [facility] Respiratory rate 2020-02-02 14:20:00 16 /min [facility] Body height 2020-02-02 14:20:00 162.6 cm [facility] Body weight 2020-02-02 14:20:00 131.118 kg [facility] BMI 2020-02-02 14:20:00 49.62 kg/m2 [facility] Systolic blood pressure 2019-11-15 14:00:00 116 mm[Hg] [facility] Diastolic blood pressure 2019-11-15 14:00:00 75 mm[Hg] [facility] Heart rate 2019-11-15 14:00:00 76 /min [facility] Body temperature 2019-11-15 14:00:00 36.89 Qian [facility] Respiratory rate 2019-11-15 14:00:00 16 /min [facility] Body height 2019-11-15 14:00:00 162.6 cm [facility] Body weight 2019-11-15 14:00:00 135.739 kg [facility] BMI 2019-11-15 14:00:00 51.37 kg/m2 [facility] Systolic blood pressure 2019-09-27 16:12:00 121 mm[Hg] [facility] Diastolic blood pressure 2019-09-27 16:12:00 83 mm[Hg] [facility] Heart rate 2019-09-27 16:12:00 86 /min [facility] Body temperature 2019-09-27 16:12:00 36.44 Qian [facility] Respiratory rate 2019-09-27 16:12:00 16 /min [facility] Body height 2019-09-27 16:12:00 162.6 cm [facility] Body weight 2019-09-27 16:12:00 144.896 kg [facility] BMI 2019-09-27 16:12:00 54.83 kg/m2 [facility] Systolic blood pressure 2019-09-22 19:44:00 117 mm[Hg] [facility] Diastolic blood pressure 2019-09-22 19:44:00 75 mm[Hg] [facility] Heart rate 2019-09-22 19:44:00 95 /min Unive [facility] Body temperature 2019-09-22 19:44:00 36.78 Qian [facility] Respiratory rate 2019-09-22 19:44:00 18 /min [facility] Oxygen saturation in Arterial blood by Pulse oximetry 2019-09-22 19:44:00 98 /min [facility] Body height 2019-09-20 15:41:00 162.6 cm [facility] Body weight 2019-09-20 15:41:00 152.862 kg [facility] BMI 2019-09-20 15:41:00 57.85 kg/m2 [facility] Systolic blood pressure 2019-09-14 14:16:00 134 mm[Hg] [facility] Diastolic blood pressure 2019-09-14 14:16:00 89 mm[Hg] [facility] Heart rate 2019-09-14 14:16:00 87 /min [facility] Body temperature 2019-09-14 14:16:00 36.56 Qian [facility] Respiratory rate 2019-09-14 14:16:00 16 /min [facility] Body height 2019-09-14 14:16:00 162.6 cm [facility] Body weight 2019-09-14 14:16:00 149.29 kg [facility] BMI 2019-09-14 14:16:00 56.49 kg/m2 [facility] Systolic blood pressure 2019-09-08 15:34:00 131 mm[Hg] [facility] Diastolic blood pressure 2019-09-08 15:34:00 83 mm[Hg] [facility] Heart rate 2019-09-08 15:34:00 85 /min Unive [facility] Body temperature 2019-09-08 15:34:00 36.11 Qian [facility] Respiratory rate 2019-09-08 15:34:00 16 /min [facility] Body height 2019-09-08 15:34:00 162.6 cm [facility] Body weight 2019-09-08 15:34:00 149.007 kg [facility] BMI 2019-09-08 15:34:00 56.39 kg/m2 [facility] Systolic blood pressure 2019-09-01 14:31:00 92 mm[Hg] [facility] Diastolic blood pressure 2019-09-01 14:31:00 64 mm[Hg] [facility] Heart rate 2019-09-01 14:25:00 81 /min Unive [facility] Body temperature 2019-09-01 14:25:00 36.22 Qian [facility] Respiratory rate 2019-09-01 14:25:00 16 /min [facility] Body height 2019-09-01 14:25:00 162.6 cm [facility] Body weight 2019-09-01 14:25:00 147.589 kg [facility] BMI 2019-09-01 14:25:00 55.85 kg/m2 [facility] Systolic blood pressure 2019-08-17 17:31:00 118 mm[Hg] [facility] Diastolic blood pressure 2019-08-17 17:31:00 74 mm[Hg] [facility] Heart rate 2019-08-17 17:20:00 120 /min [facility] Body temperature 2019-08-17 17:20:00 36.67 Qian [facility] Respiratory rate 2019-08-17 17:20:00 16 /min [facility] Body height 2019-08-17 17:20:00 162.6 cm [facility] Body weight 2019-08-17 17:20:00 147.476 kg [facility] BMI 2019-08-17 17:20:00 55.81 kg/m2 [facility] Systolic blood pressure 2019-08-04 15:33:00 137 mm[Hg] [facility] Diastolic blood pressure 2019-08-04 15:33:00 90 mm[Hg] [facility] Heart rate 2019-08-04 15:33:00 92 /min [facility] Body temperature 2019-08-04 15:33:00 36.83 Qian [facility] Respiratory rate 2019-08-04 15:33:00 16 /min [facility] Body height 2019-08-04 15:33:00 162.6 cm [facility] Body weight 2019-08-04 15:33:00 144.697 kg [facility] BMI 2019-08-04 15:33:00 54.76 kg/m2 [facility] Systolic blood pressure 2019-03-21 14:31:00 130 mm[Hg] [facility] Diastolic blood pressure 2019-03-21 14:31:00 80 mm[Hg] [facility] Heart rate 2019-03-21 14:31:00 89 /min [facility] Body temperature 2019-03-21 14:31:00 36.39 Qian [facility] Respiratory rate 2019-03-21 14:31:00 16 /min [facility] Body weight 2019-03-21 14:31:00 138.064 kg [facility] BMI 2019-03-21 14:31:00 52.25 kg/m2 [facility] Systolic blood pressure 2019-02-24 15:04:00 128 mm[Hg] [facility] Diastolic blood pressure 2019-02-24 15:04:00 80 mm[Hg] [facility] Heart rate 2019-02-24 15:04:00 75 /min Un[facility] Body temperature 2019-02-24 15:04:00 36.61 Qian [facility] Respiratory rate 2019-02-24 15:04:00 18 /min [facility] Body height 2019-02-24 15:04:00 162.6 cm [facility] Body weight 2019-02-24 15:04:00 138.517 kg [facility] BMI 2019-02-24 15:04:00 52.42 kg/m2 [facility] Systolic blood pressure 2019-01-26 15:20:00 114 mm[Hg] [facility] Diastolic blood pressure 2019-01-26 15:20:00 62 mm[Hg] [facility] Heart rate 2019-01-26 15:15:00 117 /min [facility] Body temperature 2019-01-26 15:15:00 36.94 Qian [facility] Respiratory rate 2019-01-26 15:15:00 16 /min [facility] Body height 2019-01-26 15:15:00 162.6 cm [facility] Body weight 2019-01-26 15:15:00 136.589 kg [facility] BMI 2019-01-26 15:15:00 51.69 kg/m2 [facility] Procedures Procedure Date / Time Performed Performing Clinician Source ASSIGNMENT OF BENEFITS 2023-09-08 15:18:21 Docdenise r Unassigned, Oran [facility] [id number] 2021-05-28 00:00:00 EKHOB [facility] DISMISSAL OF PATIENT CORRESPONDENCE 2020-08-09 06:01:00 Doctor Unassigned, Oran [facility] POCT TEST 2020-02-09 13:59:00 Yogesh Godwin [facility] POCT TEST 2020-02-02 14:21:00 Yogesh Godwin [facility] ASSIGNMENT OF BENEFITS 2020-02-02 13:54:27 Docto r Unassigned, Oran [facility] POCT TEST 2019-11-15 14:06:00 Reina Ruano [facility] CBC WITH DIFFERENTIAL 2019-09-21 07:51:00 Marta Dee [facility] VENOUS CORD GAS 2019-09-20 23:55:00 [facility] 2019-09-20 22:13:00 [facility] 2019-09-20 16:33:00 Jesse [facility] PROTEIN CREAT RATIO URINE RANDOM 2019-09-20 16:33:00 Jesse [facility] SGOT (ASPARTATE AMINO TRANSFER) 2019-09-20 16:32:00 Jesse [facility] CREATININE 2019-09-20 16:32:00 Jesse [facility] ALANINE AMINO TRANSFERASE(SGPT 2019-09-20 16:32:00 Jesse [facility] LACTATE DEHYDROGENASE 2019-09-20 16:32:00 Jesse [facility] URIC ACID 2019-09-20 16:32:00 Jesse [facility] CBC WITH DIFFERENTIAL 2019-09-20 16:32:00 Jesse [facility] HEPATITIS B SURFACE ANTIGEN 2019-09-20 16:32:00 Jesse [facility] GALV ONLY - SYPHILIS IGG/IGM 2019-09-20 16:32:00 Jesse [facility] PANEL IDENTIFICATION 2019-09-20 15:54:00 Christine Brady October [facility] HB ABO GROUPING 2019-09-20 15:54:00 Alexandrea Brady October [facility] RHO (D) IMMUNE GLOBULIN 2019-09-20 15:54:00 Marta Hill [facility] HOSPITAL ADMISSION 2019-09-20 05:01:00 Doctor Un assigned, Oran [facility] POCT URINALYSIS 2019-09-14 14:17:00 Lindy Godwin [facility] POCT URINALYSIS 2019-09-08 15:35:00 Lindy Godwin [facility] POCT URINALYSIS 2019-09-01 14:27:00 Lindy Godwin [facility] PANEL IDENTIFICATION 2019-08-04 15:42:00 Nestor Godwin [facility] HB ABO GROUPING 2019-08-04 15:42:00 Lindy Godwin [facility] ANTIBODY TITER INTERPS 2019-08-04 15:42:00 Leroy Godwin [facility] POCT URINALYSIS W/O SPECIFIC GRAVITY 2019-08-04 15:38:00 Lindy Godwin [facility] POCT URINALYSIS 2019-03-21 14:33:00 Lindy Godwin [facility] PANEL IDENTIFICATION 2019-02-24 15:22:00 Rehana Hinds [facility] WORKUP, BLOOD BANK 2019-02-24 15:22:00 Rehana Hinds Demetra [facility] ANTIBODY TITER INTERPS 2019-02-24 15:22:00 Nallely Hinds Demetra [facility] POCT URINALYSIS 2019-02-24 15:07:00 Lindy Godwin [facility] URINE CULTURE 2019-01-26 16:35:00 Lindy Godwin [facility] GC & CHLAMYDIA AMPLIFIED ASSAY 2019-01-26 16:35:00 Lindy Godwin [facility] LAB ONLY PAP SMEAR-LIQUID BASED 2019-01-26 16:35:00 Lindy Godwin [facility] PAP SMEAR-LIQUID BASED-CP 2019-01-26 16:35:00 Lindy Godwin [facility] GLUCOSE 1 HOUR POST PRANDIAL 2019-01-26 16:23:00 Lindy Godwin [facility] CBC WITH DIFFERENTIAL 2019-01-26 16:23:00 Gavin Godwin [facility] RUBELLA SCREEN IGG 2019-01-26 16:23:00 Philip Godwin [facility] VZV ANTIBODY SCREEN 2019-01-26 16:23:00 Yogesh Godwin [facility] HEPATITIS B SURFACE ANTIGEN 2019-01-26 16:23:00 Lindy Godwin [facility] HCV ANTIBODY 2019-01-26 16:23:00 Lindy Godwin [facility] ANTIGEN TYPING PATIENT 2019-01-26 16:23:00 Leroy Godwin [facility] PANEL IDENTIFICATION 2019-01-26 16:23:00 Nestor Godwin [facility] WORKUP, BLOOD BANK 2019-01-26 16:23:00 Lindy Godwin [facility] ANTIBODY TITER INTERPS 2019-01-26 16:23:00 Leroy Godwin [facility] HIV 1/2 AG-AB WITH REFLEX 2019-01-26 16:23:00 Lindy Godwin [facility] GALV ONLY - SYPHILIS IGG/IGM 2019-01-26 16:23:00 Lindy Godwin [facility] POCT TEST 2019-01-26 15:27:00 Yogesh Godwin [facility] POCT URINALYSIS W/O SPECIFIC GRAVITY 2019-01-26 15:27:00 Lindy Godiwn [facility] Encounters Start Date/Time End Date/Time Encounter Type Admission Type Attending Critical Access Hospital Care Facility Care Department Encounter ID Source 2021-05-09 13:32:45 Outpatient P [facility] [id number] [facility] 2024-01-19 08:15:00 2024-01-19 08:15:00 Outpatient R HALLIE-SANDRA S, CARLI HALLIE-SANDRA S, CARLI [facility] [id number] [facility] 2024-01-07 13:00:00 2024-01-07 13:16:03 Outpatient R HALLIE-SANDRA S, CARLI SUTTON-SANDRA S, CARLI [facility] [id number] [facility] 2024-01-07 13:00:00 2024-01-07 13:16:03 Office Visit Sutton-Sandra s, [facility] [id number] 350.1.13.10 4.2.7.2.[id number] [facility] 2023-12-21 11:43:36 2023-12-21 23:59:00 Outpatient R SUTTON-SANDRA S, CARLI SUTTON-SANDRA S, CARLI [facility] [id number] [facility] 2023-12-21 11:00:00 2023-12-21 23:59:00 Hospital Encounter Sutton-Sandra sSyedaCarli [facility] 1.2.840.114 350.1.13.10 4.2.7.2.[id number] [facility] 2023-12-08 12:15:00 2023-12-08 12:30:00 Cashier Host/Hostess Visit Lab, Huan Green [facility] [id number] 350.1.13.10 4.2.7.2.[id number] [facility] 2023-12-08 10:00:00 2023-12-08 10:24:51 Outpatient R SUTTON-SANDRA S, CARLI [id number] 2023-12-08 10:00:00 2023-12-08 10:24:51 Office Visit Sutton-Sandra sSyedaCarli [facility] 1.2840.114 350.1.13.10 4.2.7.2.[id number] [facility] 2023-11-13 11:45:00 2023-11-13 11:45:00 Outpatient CHRISTINE RIBEIRO [id number] Christine Jacobson 2023-11-13 00:00:00 2023-11-13 00:00:00 Outpatient MD CHRISTINE CÁRDENAS [id number] Christine [facility] 2023-10-29 11:30:00 2023-10-29 11:30:00 Outpatient R SUTTON-SANDRA S, CARLI SUTTON-SANDRA S, CARLI [facility] [id number] [facility] 2023-10-27 14:45:00 2023-10-27 14:45:00 Outpatient CHRISTINE RIBEIRO [id number] Christine [facility] 2023-10-27 00:00:00 2023-10-27 00:00:00 Outpatient CECIL PETTIT [id number] Christine [facility] 2023-10-06 00:00:00 2023-10-06 00:00:00 Outpatient CECIL PETTIT [id number] Christine [facility] 2023-09-17 00:00:00 2023-09-17 00:00:00 Telephone Franco mojica [facility] 1..840.114 350.1.13.10 4.2.7.2.[id number] [facility] 2023-09-14 00:00:00 2023-09-14 00:00:00 Outpatient WILVER CECILMAKI RIBEIRO [id number] [facility] 2023-09-09 00:00:00 2023-09-09 00:00:00 Outpatient CECIL PETTIT [id number] [facility] 2023-09-08 09:30:00 2023-09-08 10:05:10 Outpatient R SUTTON-SANDRA S, CARLI [facility]TON[facility]SANDRA S, [facility] [id number] [facility] 2023-09-08 09:30:00 2023-09-08 10:05:10 Office Visit Sutton-Sandra s [facility] 1..840.114 350.1.13.10 4.2.7.2.[id number] [facility] 2023-09-08 00:00:00 2023-09-08 00:00:00 Orders Only Doctor Unassigned, Oran [facility] 1.2.840.114 350.1.13.10 4.2.7.2.[id number] [facility] 2023-09-03 13:30:00 2023-09-03 13:30:00 Outpatient ENG CHRISTINE RIBEIRO [id number] [facility] 2023-08-10 09:20:00 2023-08-10 09:20:00 Outpatient CECIL PETTIT [id number] [facility] 2023-05-29 10:30:00 2023-05-29 10:30:00 Outpatient ADALI RIBERA [id number] [facility] 2023-05-21 08:30:00 2023-05-21 08:30:00 Outpatient ADALI RIBERA [id number] [facility] 2023-05-08 00:00:00 2023-05-08 00:00:00 Outpatient GC_GCBZW_Ka diyala_S [facility] [id number] [facility] 2023-05-04 00:00:00 2023-05-04 00:00:00 Outpatient ADALI RIBERA [id number] [facility] 2023-04-29 00:00:00 2023-04-29 00:00:00 Outpatient ADALI RIBERA [id number] [facility] 2023-04-29 00:00:00 2023-04-29 00:00:00 Outpatient ADALI RIBERA [id number] [facility] 2023-04-28 12:30:00 2023-04-28 12:30:00 Outpatient CHRISTINE RIBEIRO [id number] Christine [facility] 2023-04-28 00:00:00 2023-04-28 00:00:00 Outpatient ADALI RIBERA [id number] [facility] 2023-04-27 13:04:26 2023-04-27 13:04:26 Outpatient SFA SFA [id number] Genaro Amaya 2023-04-27 00:00:00 2023-04-27 00:00:00 Outpatient ADALI RIBERA [id number] [facility] 2023-04-21 08:45:00 2023-04-21 08:45:00 Outpatient LAB90 CHRISTINE RIBEIRO [id number] Christine [facility] 2023-04-20 16:30:00 2023-04-20 16:30:00 Outpatient ADALI RIBERA [id number] Christine [facility] 2023-04-06 11:00:51 2023-04-06 11:00:51 Outpatient SFA SFA [id number] Genaro Amaya 2023-03-16 11:05:05 2023-03-16 11:05:05 Outpatient SFA SFA [id number] Genaro Amaya 2023-02-23 13:06:19 2023-02-23 13:06:19 Outpatient SFA SFA [id number] Genaro Amaya 2023-02-02 09:02:03 2023-02-02 09:02:03 Outpatient SFA SFA [id number] Genaro Amaya 2021-05-29 10:48:00 2021-05-30 13:18:00 Inpatient EL Ekhaese, [place] [facility] SURG [id number] [facility] 2021-05-21 17:32:00 2021-05-21 17:32:00 Outpatient Ekhaese, [place] [facility]AC[facility] LABO [id number] [facility] 2021-04-04 16:00:00 2021-04-04 08:00:00 Inpatient EL Ekhaese, [place] [facility] DAYS [id number] [facility] 2021-03-29 11:40:00 2021-03-29 11:40:00 Outpatient Ekhaese, [place] [facility] LABO [id number] [facility] 2021-02-21 11:01:00 2021-02-21 11:01:00 Inpatient Philly Pleitez HCAPM DAYS [id number] [facility] 2021-01-23 09:14:00 2021-01-23 09:14:00 Outpatient Enrike Stiles [facility]AB[facility] DIAB [id number] [facility] 2020-11-07 08:15:00 2020-11-07 08:15:00 Outpatient R LINDY GODWIN [facility] [id number] [facility] 2020-08-09 08:55:29 2020-08-09 10:04:43 Office Visit Lindy Godwin [facility]TER [facility]ILD [facility] 1.840.114 350.1.13.10 4.2.7.2.[id number] [facility] 2020-08-09 08:55:29 2020-08-09 10:04:43 Office Visit Lindy Godwin [facility] CHILD [facility] 1.840.114 350.1.13.10 4.2.7.2.686 [id number] 2020-08-09 09:15:00 2020-08-09 09:15:00 Outpatient R LINDY GODWIN [facility] [id number] [facility] 2020-08-09 00:00:00 2020-08-09 00:00:00 Orders Only Doctor Unassigned, Oran [facility] 1.840.114 350.1.13.10 4.2.7.2.[id number] [facility] 2020-04-06 08:07:21 2020-04-06 08:42:27 Office Visit Lindy Godwin [facility] SLEEVE SETTER [facility] CHILD [facility] 1.840.114 350.1.13.10 4.2.7.2.[id number] [facility] 2020-04-06 08:15:00 2020-04-06 08:15:00 Outpatient R LINDY GODWIN [facility] [id number] [facility] 2020-02-23 08:06:22 2020-02-23 08:56:47 Office Visit Lindy Godwin [facility] SETTER [facility] CHILD [facility] 1.2.840.114 350.1.13.10 4.2.7.2.[id number] [facility] 2020-02-23 08:15:00 2020-02-23 08:15:00 Outpatient R LINDY GODWIN [facility] [id number] [facility] 2020-02-09 08:32:42 2020-02-09 09:40:50 Office Visit Lindy Godwin [facility] SLEEV[facility] SETTER [facility] CHILD [facility] 1..840.114 350.1.13.10 4.2.7.2.[id number] [facility] 2020-02-09 08:30:00 2020-02-09 08:30:00 Outpatient R LINDY GODWIN [facility] [id number] [facility] 2020-02-07 08:30:00 2020-02-07 08:30:00 Outpatient R [facility] [id number] [facility] 2020-02-02 08:50:24 2020-02-02 09:55:59 Office Visit Lindy Godwin [facility] SLEEV[facility] SETTER [facility] CHILD [facility] 1..840.114 350.1.13.10 4.2.7.2.[id number] [facility] 2020-02-02 08:15:00 2020-02-02 08:15:00 Outpatient R LINDY GODWIN [facility] [id number] [facility] 2020-02-02 00:00:00 2020-02-02 00:00:00 Orders Only Doctor Unassigned, Oran [facility] 1..114 350.1.13.10 4.2.7.2.[id number] [facility] 2020-01-17 00:00:00 2020-01-17 00:00:00 Telephone Lindy Godwin [facility] SETTER [facility]ILD [facility] 1.0.114 350.1.13.10 4.2.7.2.[id number] [facility] 2019-11-15 08:58:04 2019-11-15 09:22:08 Nurse Visit Visit, Huan-Rmp Nurse Lindy Godwin [facility] SETTER [facility] 1..114 350.1.13.10 4.2.7.2.[id number] [facility] 2019-11-15 09:00:00 2019-11-15 09:00:00 Outpatient R [facility] [id number] [facility] 2019-11-02 08:00:00 2019-11-02 08:00:00 Outpatient R LINDY GODWIN [facility] [id number] [facility] 2019-11-01 10:02:16 2019-11-01 10:10:30 Telemedici ne Visit Lindy Godwin [facility] 1..114 350.1.13.10 [id number] [facility] 2019-11-01 10:00:00 2019-11-01 10:00:00 Outpatient R LINDY GODWIN [facility] [id number] [facility] 2019-10-12 08:05:41 2019-10-12 09:57:15 Telemedici ne Visit Lindy Godwin [facility]E [facility] [id number] [facility] 2019-10-12 09:45:00 2019-10-12 09:45:00 Outpatient R LINDY GODWIN [facility] [id number] [facility] 2019-09-27 11:02:50 2019-09-27 11:23:37 Nurse Visit Visit, [place] [facility]win [facility] SLEEVE SETTER [facility] & CHILD [facility] 1.0.114 350.1.13.10 4.2.7.2.[id number] [facility] 2019-09-27 11:00:00 2019-09-27 11:00:00 Outpatient R LINDY GODWIN [facility] [id number] [facility] 2019-09-20 10:19:00 2019-09-22 16:00:00 Hospital Encounter Destini Vazquez [facility] 1..114 350.1.13.10 4.2.7.2.[id number] [facility] 2019-09-21 08:00:00 2019-09-21 08:00:00 Outpatient R LINDY GODWIN [facility] [id number] [facility] 2019-09-20 00:00:00 2019-09-20 00:00:00 Orders Only Doctor Unassigned, Oran [facility] 1..114 350.1.13.10 4.2.7.2.[id number] [facility] 2019-09-14 07:59:23 2019-09-14 08:34:31 Routine Visit Lindy Godwin [facility] SLEEVE SETTER [facility] & CHILD [facility] 1.840.114 350.1.13.10 4.2.7.2.[id number] [facility] 2019-09-14 08:00:00 2019-09-14 08:00:00 Outpatient R LINDY GODWIN [facility] [id number] [facility] 2019-09-08 08:56:52 2019-09-08 09:51:11 Routine Visit Lindy Godwin [facility] SLEEVE SETTER [facility] & CHILD [facility] 1.2.840.114 350.1.13.10 4.2.7.2.[id number] [facility] 2019-09-08 09:00:00 2019-09-08 09:00:00 Outpatient R LINDY GODWIN [facility] [id number] [facility] 2019-09-02 00:00:00 2019-09-02 00:00:00 Abstract Lindy Godwin [facility] SLEEVE SETTER [facility] & CHILD [facility] 1.2840.114 350.1.13.10 4.2.7.2.[id number] [facility] 2019-09-01 09:04:51 2019-09-01 09:34:51 Cashier Host/Hostess Visit Ultrasound, Lindy Gould Antonio F [facility] SLEEVE SETTER [facility] & CHILD [facility] 1.2840.114 350.1.13.10 4.2.7.2.[id number] [facility] 2019-09-01 07:51:10 2019-09-01 09:03:14 Routine Visit Lindy Godwin [facility] SLEEVE SETTER [facility] CHILD [facility] 1.2.840.114 350.1.13.10 4.2.7.2.[id number] [facility] 2019-08-17 10:53:54 2019-08-17 11:43:25 Routine Visit Lindy Godwin [facility] SLEEVE SETTER [facility] CHILD [facility] 1.2.840.114 350.1.13.10 4.2.7.2.[id number] [facility] 2019-08-04 09:14:38 2019-08-09 10:20:44 Routine Visit Lindy Godwin [facility] SLEEVE SETTER [facility] & CHILD [facility] 1.2.840.114 350.1.13.10 4.2.7.2.[id number] [facility] 2019-08-09 00:00:00 2019-08-09 00:00:00 Telephone Lindy Godwin [facility] SLEEVE SETTER [facility] CHILD [facility] 1.2.840.114 350.1.13.10 4.2.7.2.[id number] [facility] 2019-08-09 00:00:00 2019-08-09 00:00:00 Abstract Lindy Godwin [facility] SLEEVE SETTER [facility] CHILD [facility] 1.2.840.114 350.1.13.10 4.2.7.2.[id number] [facility] 2019-08-05 00:00:00 2019-08-05 00:00:00 Telephone Lindy Godwin [facility] SLEEVE SETTER [facility] CHILD [facility] 1.2.840.114 350.1.13.10 4.2.7.2.[id number] [facility] 2019-07-11 20:27:51 2019-07-12 03:01:00 Outpatient CHRISTINA PIERCE [facility] MCKEN[facility] [id number] [facility] 2019-03-21 09:23:05 2019-03-21 10:17:43 Routine Visit Faculty, Mike Tee [facility] SLEEVE SETTER [facility] & CHILD [facility] 1.2.840.114 350.1.13.10 4.2.7.2.[id number] [facility] 2019-03-07 00:00:00 2019-03-07 00:00:00 Telephone Risk, Huan-Rmchp-N p/High [facility] SLEEVE SETTER [facility] & CHILD [facility] 1.2.840.114 350.1.13.10 4.2.7.2.[id number] [facility] 2019-03-04 00:00:00 2019-03-04 00:00:00 [facility] 1.2.840.114 350.1.13.10 4.2.7.2.[id number] [facility] 2019-02-25 00:00:00 2019-02-25 00:00:00 Telephone Lindy Godwin [facility] SLEEVE SETTER [facility] CHILD [facility] 1.2.840.114 350.1.13.10 4.2.7.2.[id number] [facility] 2019-02-24 09:47:59 2019-02-24 10:32:25 Routine Visit Risk, JaneyRmchp-N p/High Rehana Hinds [facility] SLEEVE SETTER [facility] & CHILD [facility] 1.2.840.114 350.1.13.10 4.2.7.2.[id number] [facility] 2019-02-17 00:00:00 2019-02-17 00:00:00 Abstract Lindy Godwin [facility] SLEEVE SETTER [facility] & CHILD [facility] 1.2.840.114 350.1.13.10 4.2.7.2.[id number] [facility] 2019-02-16 10:03:47 2019-02-16 10:39:43 Cashier Host/Hostess Visit Ultrasound, Randolph Radford [facility] SLEEVE SETTER [facility] & CHILD [facility] 1.2.840.114 350.1.13.10 4.2.7.2.[id number] [facility] 2019-02-09 00:00:00 2019-02-09 00:00:00 Telephone Lindy Godwin [facility] SLEEVE SETTER [facility] CHILD [facility] 1.2.840.114 350.1.13.10 4.2.7.2.[id number] [facility] 2019-01-26 09:47:56 2019-02-08 13:19:30 Initial Visit Lindy Godwin [facility] SLEEVE SETTER [facility] & CHILD [facility] 1.2.840.114 350.1.13.10 4.2.7.2.[id number] [facility] Results Test Description Test Time Test Comments Results Result Co mments Source BASIC METABOLIC [id number] 05:40:00* Test Item Value Reference Range Interpretation [...] code = CA) 8.4 mg/dL 8.5-10.1 L [id number] 10:19:00* Test Item Value Reference Range Interpretation Comme nts GLUBED (test code = GLUBED) 82 mg/dL 74-106 N Performed by cer tified sand operator at [facility] Novel Coronavirus 21:37:00* Test Item Value Reference Range Interpretation Comme nts Novel Coronavirus 2019 Inhouse (test code = [id number]) Negative Negative Positive resul ts are indicative of the presence ujULDG-DuI-9 RNA, clinical correlation with patient historyand other [...] the qualitative detection of nucleic acids from tgeATRS-DqR-4 virus and diagnosis of SARS-CoV-2 virusinfection. It is an Emergency Use Authorization (EUA) testauthorized by the U.S. FDA. Novel Coronavirus 21:37:00* Test Item Value Reference Range Interpretation Comme nts Novel Coronavirus 2019 Inhouse (test code = KTOXO40OD) Negative Negative Positive resul ts are indicative of the presence ypBYAF-CsN-3 RNA, clinical correlation with patient historyand other [...] the qualitative detection of nucleic acids from qafAXST-YvU-5 virus and diagnosis of SARS-CoV-2 virusinfection. It is an Emergency Use Authorization (EUA) testauthorized by the U.S. FDA. HCG SERUM [id number] 14:33:00* Test Item Value Reference Range Interpretation Comme nts HCG SERUM QUAL (test code = HCGQL) NEGATIVE NEGATIVE This HCGQL test is NOT applicable for MALE patients.Check with nurse about probable order error.If Tumor Marker Test needed, nurse should order test "HCGTU"(Test #550.71954) COMPREHENSIVE METABOLIC [id number] 12:50:00* Test Item Value Reference Range Interpretation [...] range due to change in reagent. PROTHROMBIN [id number] 12:31:00* Test Item Value Reference Range Interpretation [...] (2.5-3.5) IS PATIENT ON ANTICOAGULANTS? NTHROMBOPLASTIN TIME [id number] 12:31:00* Test Item Value Reference Range Interpretation Comme nts THROMBOPLASTIN TIME PARTIAL (test code = PTT) 39.8 seconds 23.0-37.0 H IS PATIENT ON ANTICOAGULANTS? NCBC W/AUTO [id number] 12:20:00* Test Item Value Reference Range Interpretation [...] REQUIRED (test c ode = MDIFF) NO STOMACH,[id number] 13:40:00* Test Item Value Reference Range Interpretation Comme nts STOMACH,BIOPSY (test code = STOMBX) RUN DATE: 04/08/21 [place] [employer] [facility] PAGE 1 RUN TIME: 1341 Specimen Inquiry RUN USER: INTERFACE PATIENT: TYRA RIBERA LOC: LUIS U #: [id number] AGE/SX: 30/F ROOM: RE04/04/21GRACE DR: Enrike Yeboah DO : 90 BED: DIS: STATUS: DEP SD TLOC: SPEC #: [id number] RECD: 04/05/21 STATUS: HELEN VALDERRAMA #: [id number] CHERISE: 04/04/21-1700 [facility] DR: Enrike Yeboah DO ENTERED: 04/05/21 SP TYPE: BX STOMACH OTHR DR: ORDERED: GROSS PROCEDURES: GROSS (04/08/21) TISSUES: 1. PYLORUS - COLD BX 2. [...] INTESTINAL METAPLASIA, DYSPLASIA, AND MALIGNANCY DMW/sm D [id number], [id number] MACROSCOPIC The first specimen is received in [...] CONTINUED ON NEXT PAGE RUN DATE: 04/08/21 [facility] PAGE 2 RUN TIME: 1341 Specimen Inquiry RUN USER: INTERFACE SPEC #: [id number] PATIENT: TYRA RIBERA #[id number] (Continued) MACROSCOPIC (Continued) GROSS PERFORMED AT [facility] [address] [place] [address] (p)[phone] MICROSCOPIC All of the stains, including any controls performed, stain appropriately. MICROSCOPIC PERFORMED AT [facility] [address] (P)[phone] PERFORMING SITE Diagnosis performed at: [facility], [address] [address] Signed SIGNATURE ON FILE Vee Garcia MD 04/08/21 1340 END OF REPORT Novel Coronavirus 16:19:00* Test Item Value Reference Range Interpretation Comme [facility] Novel Coronavirus 2018 Inhouse (test code = XDNUG77TC) Negative Negative Positive resul ts are indicative of the presence ntFLSR-ExN-0 RNA, clinical correlation with patient historyand other [...] the qualitative detection of nucleic acids from egvCSZN-PcC-9 virus and diagnosis of SARS-CoV-2 virusinfection. It is an Emergency Use Authorization (EUA) testauthorized by the U.S. FDA. Novel Coronavirus 16:19:00* Test Item Value Reference Range Interpretation Comme [facility] Novel Coronavirus 2018 Inhouse (test code = ACZWC02LS) Negative Negative Positive resul ts are indicative of the presence oyHBPK-MgS-3 RNA, clinical correlation with patient historyand other [...] the qualitative detection of nucleic acids from ewwTLEF-MkE-7 virus and diagnosis of SARS-CoV-2 virusinfection. It is an Emergency Use Authorization (EUA) testauthorized by the U.S. FDA. COMPREHENSIVE METABOLIC [id number] 12:52:00* Test Item Value Reference Range Interpretation [...] range due to change in reagent. URINALYSIS [id number] 12:39:00* Test Item Value Reference Range Interpretation [...] #/LPF FEW Urine Source? Clean CatchUR HCG [id number] 12:39:00* Test Item Value Reference Range Interpretation Comme nts UR HCG QUAL (test code = HCGQLU) NEGATIVE This HCGQL test is NOT applicable for MALE patients.Check with nurse about probable order error.If Tumor Marker Test needed, nurse should order test "HCGTU"(Test #550.53642) Urine Source? Clean CatchPROTHROMBIN [id number] 12:16:00* Test Item Value Reference Range Interpretation [...] (2.5-3.5) IS PATIENT ON ANTICOAGULANTS? NTHROMBOPLASTIN TIME [id number] 12:16:00* Test Item Value Reference Range Interpretation Comme nts THROMBOPLASTIN TIME PARTIAL (test code = PTT) 36.9 seconds 23.0-37.0 N IS PATIENT ON ANTICOAGULANTS? NCBC W/AUTO [id number] 12:10:00* Test Item Value Reference Range Interpretation [...] c ode = MDIFF) NO CBC W/AUTO [id number] 14:12:00* Test Item Value Reference Range Interpretation [...] REVIEW CONSISTANT WITH AUTO DIFFERENTIAL. HCG SERUM [id number] 11:50:00* Test Item Value Reference Range Interpretation Comme nts HCG SERUM QUAL (test code = HCGQL) SERUM NEGATIVE SCREEN NEGATIVE COVID 19 INHOUSE [id number] 11:49:00* Test Item Value Reference Range Interpretation Comme nts COVID 19 INHOUSE AG (test code = LCIWY21ZAVC) NEGATIVE Negative Per house nurse , negative results should be treated aspresumptive [...] and symptoms consistent with COVID-19. CBC W/AUTO [id number] 11:42:00* Test Item Value Reference Range Interpretation [...] c ode = MDIFF) DIFF/SCN CRITERIA POCT [id number] 13:59:00* Test Item Value Reference Range Interpretation Comme nts POCT PREG (test code = 1605) Negative On board controls acceptable with C Line (test code = 3574) Yes POCT PREG LOT # (test code = 3575) POCT PREG TEST DATE ( test code = 3576) [facility] [id number] 13:59:00* Test Item Value Reference Range Interpretation Comme nts POCT PREG (test code = 1605) Negative On board controls acceptable with C Line (test code = 3574) Yes POCT PREG LOT # (test code = 3575) POCT PREG TEST DATE ( test code = 3576) [facility] [id number] 13:59:00* Test Item Value Reference Range Interpretation Comme nts POCT PREG (test code = 1605) Negative On board controls acceptable with C Line (test code = 3574) Yes POCT PREG LOT # (test code = 3575) POCT PREG TEST DATE ( test code = 3576) [facility] [id number] 14:22:00* Test Item Value Reference Range Interpretation Comme nts POCT PREG (test code = 1605) Negative On board controls acceptable with C Line (test code = 3574) Yes POCT PREG LOT # (test code = 3575) POCT PREG TEST DATE ( test code = 3576) [facility] [id number] 14:22:00* Test Item Value Reference Range Interpretation Comme nts POCT PREG (test code = 1605) Negative On board controls acceptable with C Line (test code = 3574) Yes POCT PREG LOT # (test code = 3575) POCT PREG TEST DATE ( test code = 3576) [facility] [id number] 14:06:00* Test Item Value Reference Range Interpretation Comme nts POCT PREG (test code = 1605) Negative On board controls acceptable with C Line (test code = 3574) Yes POCT PREG LOT # (test code = 3575) POCT PREG TEST DATE ( test code = 3576) [facility] - SYPHILIS [id number] 14:13:00* Test Item Value Reference Range Interpretation Comme nts Syphilis IgG/IgM (test code = 37725-9) Non-reactive Non-reactive LUTHER (test code = LUTHER) Non-reactive - No serologic evidence of T. pallidum infection. Cannot exclude incubating or early syphilis. Submit a second specimen in 2-4 weeks if syphilis is clinically suspected. Equivocal - Further testing to follow. Reactive - Further testing to follow. Lab Interpretation (test code = 69870-4) Normal [facility] WITH [id number] 09:26:00* Test Item Value Reference Range Interpretation [...] 32.8 g/dL 31.6-35.1 RDW-SD (test code = 28698-7) 44.3 fL 39-49.9 RDW-CV (test code = 788-0) 14.4 % 12-15.5 PLT (test code = 777-3) See_Comment [Automated message] The system which generated this result transmitted reference range: 166 - 358 10*3/?L. The reference range was not used to interpret this result as normal/abnormal. MPV (test code = 09761-7) 11.0 fL 9.5-12.9 NRBC/100 WBC (test code = 1347142179) See_Comment [Automated message] The system which generated this result transmitted reference range: 0.0 - 10.0 /100 WBCs. The reference range was not used to interpret this result as normal/abnormal. NRBC x10^3 (test code = 4766877206) <0.01 See_Comment [Automated message] The system which generated this result transmitted reference range: 10*3/?L. The reference range was not used to interpret this result as normal/abnormal. GRAN MAT (NEUT) % (test code = 770-8) 81.3 % IMM GRAN % (test code = 3818081940) 0.50 % LYMPH % (test code = 736-9) 10.0 % MONO % (test code = 5905-5) 7.8 % EOS % (test code = 713-8) 0.1 % BASO % (test code = 706-2) 0.3 % GRAN MAT x10^3(ANC) (test code = 0898589710) 11.84 10*3/uL 1.88-7.09 H IMM GRAN x10^3 (test code = 8742987373) 0.08 10*3/uL 0-0.06 H LYMPH x10^3 (test code = 731-0) 1.46 10*3/uL 1.32-3.29 MONO x10^3 (test code = 742-7) 1.13 10*3/uL 0.33-0.92 H EOS x10^3 (test code = 711-2) <0.03 0.03-0.39 L BASO x10^3 (test code = 704-7) 0.04 10*3/uL 0.01-0.07 Lab Interpretation (test code = 14695-2) Abnormal [facility] IMMUNE [id number] 03:01:12* Test Item Value Reference Range Interpretation Comme nts RHIG CANDIDATE? (test code = 5055) No- see comment Patient is not a candidate for RhIg- Patient is Rh Positive.Performed at [facility] Laboratory Services - [facility] Blood [address] [address] Free: [phone] No. [id number] [facility] CenterVenous Cord [id number] 00:09:00* Test Item Value Reference Range Interpretation Comme nts VENOUS BASE EXCESS, CORD (test code = 0013830041) mEq/L VENOUS PH, CORD (test code = 7314483492) 7.25-7.45 VENOUS PC02, CORD (test code = 7400671107) See_Comment H [Automated me ssage] The system which generated this result transmitted reference range: 27 - 49 mmHg. The reference range was not used to interpret this result as normal/abnormal. VENOUS PO2, CORD (test code = 3491006632) See_Comment [Automated me ssage] The system which generated this result transmitted reference range: 17 - 41 mmHg. The reference range was not used to interpret this result as normal/abnormal. VENOUS BICARBONATE, CORD (test code = 5086327055) See_Comment [Automa ling message] The system which generated this result transmitted reference range: 12 - 29 mEq/L. The reference range was not used to interpret this result as normal/abnormal. Lab Interpretation (test code = 75957-8) Abnormal [facility] CenterArterial Cord [id number] 00:06:00* Test Item Value Reference Range Interpretation Comme nts BASE EXCESS, CORD (test code = 4853561803) mEq/L AC PH, CORD (BEAKER) (test code = 2272170024) 7.18-7.38 PC02, CORD (test code = 4197689633) See_Comment [Automated messa ge] The system which generated this result transmitted reference range: 32 - 66 mmHg. The reference range was not used to interpret this result as normal/abnormal. PO2, CORD (test code = 3621546889) See_Comment [Automated messa ge] The system which generated this result transmitted reference range: 10 - 30 mmHg. The reference range was not used to interpret this result as normal/abnormal. BICARBONATE, CORD (test code = 2018903704) See_Comment [Automated messa ge] The system which generated this result transmitted reference range: 17 - 27 mEq/L. The reference range was not used to interpret this result as normal/abnormal. [facility] CenterPANEL [id number] 19:06:46 ANTIBODY OYMmdz-SnhZivh-R Comment: Performed at [facility] Laboratory Services - [facility] Blood [address] Free: [phone] No. [id number] LABUnH[facility] CenterType and Screen - ONCE STAT 2019-09-20 18:19:37* Test Item Value Reference Range Interpretation Comme nts ABO & RH (test code = 20) O POSITIVE Performed at [facility] Laboratory Services - [facility] Blood [address] Free: [phone] No. [id number] IAT (test code = 1185) Positive Performed at [facility] Laboratory [facility] Blood [address] Free: [phone] No. [id number] [facility] CenterUric Acid [id number] 18:12:00* Test Item Value Reference Range Interpretation Comme nts URIC ACID (test code = 8248573642) 5.5 mg/dL 2.9-6 Lab Interpretation (test cod e = 21601-6) Normal [facility] Vixpunuhnu4164-98-46 18:12:00* Test Item Value Reference Range Interpretation Comme nts CREATININE (test code = 9731448180) 0.58 mg/dL 0.5-1.04 eGFR Calculation (Non-) (test code = 3950219841) mL/min/1.73m2 eGFR Calculation () (test code = 0927543656) mL/min/1.73m2 LUTHER (test code = LUTHER) Association [...] or urine or abnormalities in imaging tests). [facility] BranchSG[facility] (Asparate Amino Transfer)2019-09-20 18:12:00* Test Item Value Reference Range Interpretation Comme nts AST(SGOT) (test code = 5770822174) 22 U/L 13-40 Lab Interpretation (test cod e = 25076-1) Normal [facility] CenterAlanine Amino Transferase (SGPT)2019-09-20 18:12:00* Test Item Value Reference Range Interpretation Comme nts ALTv (test code = 1742-6) 20 U/L 5-35 Lab Interpretation (test cod e = 74275-9) Normal [facility] CenterLactate Dkjunkigfipln4596-28-82 18:07:00* Test Item Value Reference Range Interpretation Comme nts LDH (test code = 5423504815) 400 U/L 300-600 Lab Interpretation (test cod e = 00296-5) Normal [facility] CenterHepatitis B Surface [id number] 17:51:00 * Test Item Value Reference Range Interpretation Comme nts HBsAg Semi-Quantitative (veronica t code = 5195-3) Negative Negative [facility] CenterProtein CREAT Ratio Urine Mvyvzr9753-45-72 17:03:00* Test Item Value Reference Range Interpretation Comme nts T. PROT U (test code = 2888-6) 12 mg/dL CREAT U (test code = 7308552162) 109.8 mg/dL Protein/Creatinine Ratio Uri ne (test code = 7286751903) 0.0-2.0 [facility] CenterUrinalysis2020-03-10 16:58:00* Test Item Value Reference Range Interpretation Comme nts APPEARANCE (test code = 3241122095) Hazy Clear A COLOR (test code = 3031427454) Yellow Yellow PH (test code = 2237658875) 4.8-8.0 SP GRAVITY (test code = 8106195882) 1.003-1.030 GLU U QUAL (test code = 0625874714) Normal Normal BLOOD (test code = 9952627667) Negative Negative KETONES (test code = 7873183685) Negative Negative PROTEIN (test code = 2887-8) Negative Negative UROBILIN (test code = 7045585736) Normal Normal BILIRUBIN (test code = 3081061848) Negative Negative NITRITE (test code = 1136655955) Negative Negative LEUK AURA (test code = 5887351527) Negative Negative RBC/HPF (test code = 9030240591) See_Comment [Automated messa ge] The system which generated this result transmitted reference range: 0 - 3 HPF. The reference range was not used to interpret this result as normal/abnormal. WBC/HPF (test code = 7191971861) See_Comment [Automated messa ge] The system which generated this result transmitted reference range: 0 - 5 HPF. The reference range was not used to interpret this result as normal/abnormal. BACTERIA (test code = 6520921777) Few Negative A MUCOUS (test code = 3223681553) Slight Negative LPF A SQ EPITH (test code = 3068317842) See_Comment H [Automated messa ge] The system which generated this result transmitted reference range: <=2 HPF. The reference range was not used to interpret this result as normal/abnormal. Lab Interpretation (test code = 85350-9) Abnormal [facility] WITH [id number] 16:53:00* Test Item Value Reference Range Interpretation [...] 32.9 g/dL 31.6-35.1 RDW-SD (test code = 84653-0) 43.2 fL 39-49.9 RDW-CV (test code = 788-0) 14.2 % 12-15.5 PLT (test code = 777-3) See_Comment [Automated messa ge] The system which generated this result transmitted reference range: 166 - 358 10*3/?L. The reference range was not used to interpret this result as normal/abnormal. MPV (test code = 31182-2) 10.9 fL 9.5-12.9 NRBC/100 WBC (test code = 7588185489) See_Comment [Automated me ssage] The system which generated this result transmitted reference range: 0.0 - 10.0 /100 WBCs. The reference range was not used to interpret this result as normal/abnormal. NRBC x10^3 (test code = 2946906311) <0.01 See_Comment [Automated messa ge] The system which generated this result transmitted reference range: 10*3/?L. The reference range was not used to interpret this result as normal/abnormal. GRAN MAT (NEUT) % (test code = 770-8) 76.7 % IMM GRAN % (test code = 1536181615) 0.50 % LYMPH % (test code = 736-9) 14.3 % MONO % (test code = 5905-5) 7.6 % EOS % (test code = 713-8) 0.5 % BASO % (test code = 706-2) 0.4 % GRAN MAT x10^3(ANC) (test code = 9902413904) 8.53 10*3/uL 1.88-7.09 H IMM GRAN x10^3 (test code = 2773516136) 0.06 10*3/uL 0-0.06 LYMPH x10^3 (test code = 731-0) 1.59 10*3/uL 1.32-3.29 MONO x10^3 (test code = 742-7) 0.84 10*3/uL 0.33-0.92 EOS x10^3 (test code = 711-2) 0.05 10*3/uL 0.03-0.39 BASO x10^3 (test code = 704-7) 0.04 10*3/uL 0.01-0.07 Lab Interpretation (test code = 27073-8) Abnormal [facility] URINALYSIS W SPECIFIC [id number] 14:17:00* Test Item Value Reference Range Interpretation [...] 3267) [facility] URINALYSIS W SPECIFIC [id number] 15:35:00* Test Item Value Reference Range Interpretation [...] 3267) [facility] URINALYSIS W SPECIFIC [id number] 14:27:00* Test Item Value Reference Range Interpretation [...] POCT U APPEAR (test code = 3267) [facility] [id number] 15:17:50* Test Item Value Reference Range Interpretation Comme nts TITERED AB (test code = 1141) Ab Titered: Fya Performed at [facility] Laboratory [address] [address]Soqk Free: [phone] No. [id number] AB TITER (test code = 247) Antibody Titer: 4 Performed at [facility] Laboratory [address] [address]Nvxf Free: [phone] No. [id number] [facility] [id number] 15:17:16* Test Item Value Reference Range Interpretation Comme nts TITERED AB (test code = 1141) Ab Titered: K Performed at [facility] Laboratory [address] [address]Ifwq Free: [phone] No. [id number] AB TITER (test code = 247) Antibody Titer: 8 Performed at [facility] Laboratory [address] [address]Dzrk Free: [phone] No. [id number] [facility] CenterPANEL [id number] 13:49:50 ANTIBODY FNAodo-JjmUtwc-V Comment: Performed at [facility] Laboratory Services [address] [address]Cbmx Free: [phone] No. [id number] [facility] 2019-08-05 13:47:05* Test Item Value Reference Range Interpretation Comme nts ABO & RH (test code = 20) O POSITIVE Performed at [facility] Laboratory Services [facility] Blood [place] [id number] Free: [phone] No. [id number] IAT (test code = 1185) Positive Performed at [facility] Laboratory Services [facility] Blood [place] [id number] Free: [phone] No. [id number] [facility] URINALYSIS W/O SPECIFIC [id number] 15:38:00* Test Item Value Reference Range Interpretation [...] ve Lab Interpretation (test cod e = 19111-8) Abnormal [facility] URINALYSIS W/O SPECIFIC [id number] 15:38:00* Test Item Value Reference Range Interpretation [...] ve Lab Interpretation (test cod e = 17727-9) Abnormal [facility] URINALYSIS W/O SPECIFIC [id number] 15:38:00* Test Item Value Reference Range Interpretation [...] ve Lab Interpretation (test cod e = 29303-9) Abnormal [facility] URINALYSIS W SPECIFIC [id number] 14:33:00* Test Item Value Reference Range Interpretation [...] 3267) [facility] URINALYSIS W SPECIFIC [id number] 14:33:00* Test Item Value Reference Range Interpretation [...] POCT U APPEAR (test code = 3267) [facility]ITER [id number] 11:17:08* Test Item Value Reference Range Interpretation Comme nts TITERED AB (test code = 1141) Ab Titered: Fya Performed at [facility] Laboratory [place] [address]Toll Free: [phone] No. [id number] AB TITER (test code = 247) Antibody Titer: 8 Performed at [facility] Laboratory [place] [address]Toll Free: [phone] No. [id number] [facility] CenterANTIB[facility] TITER [id number] 11:17:08* Test Item Value Reference Range Interpretation Comme nts TITERED AB (test code = 1141) Ab Titered: Fya Performed at [place] [address]Toll Free: [phone] No. [id number] AB TITER (test code = 247) Antibody Titer: 8 Performed at [facility] Laboratory [place] [address]Toll Free: [phone] No. [id number] [facility] BranchANT[facility]ODY TITER [id number] 11:16:14* Test Item Value Reference Range Interpretation Comme nts TITERED AB (test code = 1141) Ab Titered: K Performed at [facility] Laboratory [place] [address]Toll Free: [phone] No. [id number] AB TITER (test code = 247) Antibody Titer: 4 Performed at [facility] Laboratory [facility] [place] [address]Toll Free: [phone] No. [id number] [facility] CenterANTIB[facility] TITER [id number] 11:16:14* Test Item Value Reference Range Interpretation Comme nts TITERED AB (test code = 1141) Ab Titered: K Performed at [address] Free: [phone] No. [id number] AB TITER (test code = 247) Antibody Titer: 4 Performed at [address] Free: [phone] No. [id number] [facility] [id number] 11:16:13 ANTIBODY EIBhov-CtzWidt-M Comment: Performed at [facility] Laboratory Services - [address] Free: [phone] No. [id number] [facility] IDENTIFICATION 2019-02-25 11:16:13ANTIBODY XVZqac-NjtRseg-Y Comment: Performed at [facility] Laboratory Services - [address] Free: [phone] No. [id number] [facility] BLOOD [id number] 07:33:42* Test Item Value Reference Range Interpretation Comme nts ABO & RH (test code = 20) O Positive Performed at [address] Free: [phone] No. [id number] IAT (test code = 1185) Positive Performed at [address] Free: [phone] No. [id number] [facility] CenterPRENATAL WORKUP, BLOOD [id number] 07:33:42 * Test Item Value Reference Range Interpretation Comme nts ABO & RH (test code = 20) O Positive Performed at [facility] Laboratory [facility] Blood [address] Free: [phone] No. [id number] IAT (test code = 1185) Positive Performed at [facility] Laboratory [facility] Blood [address] Free: [phone] No. [id number] [facility] CenterPOCT UR[facility] SPECIFIC [id number] 15:07:00* Test Item Value Reference Range Interpretation [...] POCT U APPEAR (test code = 3267) [facility]IFIC [id number] 15:07:00* Test Item Value Reference Range Interpretation [...] POCT U APPEAR (test code = 3267) [facility] [id number] 15:07:00* Test Item Value Reference Range Interpretation [...] POCT U APPEAR (test code = 3267) [facility] ONLY PAP SMEAR-LIQUID [id number] 15:19:00* Test Item Value Reference Range Interpretation Comme [facility] Case Report (test code = 4328302544) Gynecologic Cytology?Case: [id number]? Authorizing Provider:?Lindy Godwin,?Collected:? 01/26/2019 1135??? [facility]? Received:?01/26/2019 2341?? [place]? First Screen:?Adali Munroe? Specimen:?Liquid Based Pap Preparation, CERVIX? Clinical Information (test code = 2344776536) routine Specimen Adequacy (test code = 68209-5) Satisfactory for Evaluation(Endocervical /Transformation Zone Component Absent) Interpretation (test code = 46899-2) Negative for intraepithelial lesion or malignancy Other Findings (test code = 8338748843) Shift In Blossom Suggestive Of Bacterial Vaginosis Comments (test code = 7235313358) r8xiaQKsQQHokNLxRrEaBFZ zPMZav7qqNDQwjMSsSgUuAb NcZnRuYmpcdWMxXGRlZmYwe 4lqs537bUVae9nrXUDoPsT9 zNIvSLVopMQwT938ARSkKDr ii7ntn2QsLCPelHAqb1Y3HQ WLTMrqYmTkG448m1sjl9nce kJtmUB3NFZbFOHlZ0TxBA3i XAUyiOGsTGzwntLaDzY9QRd mHWMpFhO3EMWddAVrLYGdU3 36KVD7lGfjp8zqJTG9MRVtL UOaFjWtKj9ceRYfI466ZEKw YEKAJSLwkHo5UNBaxvDnvqS usFXZg635T692o1ihNILily ZosNnMpnycr2bzY207CGKlo GVydzEyMjQwXHBhcGVyaDE1 GOAyGG6erbpiIUI8ZZneFRM smjQcMKJiqEMwF3Z9CnZqkA LjQ1MvRLchTYHzuad5HfPgA b5vkNGqeYE2KWyfs8kqv3we jQEoRzk7OPYmPkYdWlthWJd pw7Mle5ueDFCdsg9iFLY9lJ WfnNskt1S1yQTbKNMbsLAaf sPuLSDlBgM1LAfhTH3wva86 JDVoVZR6tc0zuARecRxilaA ifSPaTGlpS9QiPXMwv397XK OdH2GeTGKhf2U7avLrMiVmD ORqyRT3teZ7GWDwPOz3jXPe yuL9czAjjCFxN5gxyT9rOSv gAV7gbfrol8tnOUL5MSlqYC EehNB6jwpmKCkcZPCfJrS4w uBzqPFgOJBjdJrlUQxjm111 NQZ9AhFsOEZtw3TfM3LgqEt vC39rbAqbZ65fJXQjlDjyfB 4cpWrcqH6tUkAsYxTsRJnaD XJkXHBsYWluXGYwXGZzMjBc bXemqZ9dNpIoIwGbNvkkUK6 oMTPgY6jcpVUfFXVmRKSbJ9 zrHhDfmY2uwAljEQdmItGzY kYoMmyaBUZqucDiuw1vKAVr ieTauhWluKJpSUNpXasmD3m 8p2JrH7gjq2ukL9emiLSqiH pccGFyIFVuaXZlcnNpdHkgb 1UvNCQ8NQEcTMJkyQIpmHAE qwMnL8jeVAVlm7BxdT1veVE PQJC3cFDsuuIbRMyhNUs3MT DHnWV3VDWepNQ5c1rmIRYkJ sP4TLQJkNizBQToOSK2IMbc N936hPabaBKgOZNmYJMxPDd hCGLrBOEtFrJzgDoioV5eFq RsNtFxUhvhDV5hFAFzA5jqj OGeQGNwUMTcU5peHwVqvA4i aFxmMVxjZjFcZnMxNlxpIEx zUWk2FOHWeKJ9PALERAO1Eo C6U4rnrSIakobySBrlfjUuK HBhclxwYXJ9 LMP (test code = 6672809972) Educational Note (test code = 2037599522) o0tcmMGvAYJrw6psCOJefXH uZzEwMzNcZnRuYmpcdWMxIH jgwdFyXOulb5TtZ6AoENSfB FxhbnNpXGRlZmxhbmcxMDMz VKN1iqEmJQLgCGduFPJeRKe cHw4rzRJyaVjcVcJpBNCqu7 buvgRRewlwyVe5u3bsHQLkH nI5wZUvVEoyF9wvgaFtsKGb EOYuMAz5tO82EQTcpP0gsAU tOQqgyaUjKqW3RDjlEFVjEd V3ADCrxQRrSKPzO0qqTXRgH MEqE5MfSU3eBpkdQio3YQB2 IDtccmVkMFxncmVlbjBcYmx 3EUAyL040TXP8iUmwp3yzID L6DXYsXKZuJkJvAo6umXXoM 815EYMlJWDIQWJptXs6PILk skJmwdNrrXLMz525J874m6r yLYLhyoUvtRyGvdccm6xwE0 19XHBhcGVydzEyMjQwXHBhc ZZjzFP7QYReWG0aekykRMdf LLosBDJhwpN5PHBnlNPxQ9T lQDGgID8rufaoVXT8MMpbAY DxJYF5QfXtDNDvw6Icbgc5V iPjlj7bpx00SJG4u9PbkQyh EZI1YFZ2CyLlUp3dcQFsAJZ tRB9qBlFfbGNtGHDdzw05vB doFBfjylMahX1zJsRfDFPlk KChUJCxWT6dtSZeBQGruO8v cmxjXHBnYnJkcmhlYWRccGd msnQkMa1kqHhiTHR0UIspO5 ulkQ2gTlU8BYvsE7oitD3mV Ro8OCbjpNX7HTZhlT7tQD7n aybnq7qvNJgfAXplRZEopwH 0coN4CFNfwOBhV2HfnF7rNZ IgHX8orwmsh6wrSGY9ERnaA OJeAMX3KdOvEDHpe7Rydpi3 UqTgw6PikLNvNTcvD63hc38 5PDUxtxWbJ1rpjSFnfoknuZ ByvzzcBOitjjT5UEAeSTDmC WluXGYxXGZzMjJcbGFuZzEw MzNcaGljaFxmMVxkYmNoXGY hLDnzX4qnBrZzO5XiABJiDk VouPZJKEE5tVRpoGTmxKWqg M9bjRPwGSLoYSNbq6CpKBoy SMTxy8NjHRGyeP2bTFApy9V ezXBbuDQpcXz3IBNdylFvcC XwjG13fvVwLF4mTTGwQZFeE DTahjGksDLwz3OsLtCVqGOx cPWhuWRrFYIbLE4cnN4lAQS szoHnBLP4zLBkd5mvBWDqq1 JsBgwknJE2XW6rZULqxXBiL B7aY4T4xHZmURVtLZVaUAcl JC9cc8YvkQv1PTAqTAY6xTY uSvKuAwTgpYkmjqSeXX1maX rjTiWvpwRiSh6poZ47YYHuF P5mTOPpYMcecKEqywYzMWGq tM9xB4BnFCOtR44sUONnFMK qjK5mlF4fbuOkpeYruqAmm5 8zXM5cWVOljI3jjYtafE9zc mUgdGhlIGVmZmVjdCBvZiBm BJytUGJfKRmfsUd6ZPYyPTB 2lPXsPpMxCW02niQoNKQqPG 22BKFte8OnRWKySQFjBO6uq zJbUUD5wcKnu50aoVi9LLsh vYOreO1lBNhnuACidWBrRsS xnUMwJGhqPLBvYH0qRPWjSW 55IHVuZXhwbGFpbmVkIGNsa P9uU7YaNSRbS25iWONeAPGe nC3pmT6dfycwfxDwRPMrtGW zcyBvZiBhbnkgUGFwIFRlc3 GoecWwgAc6NrsqoFEndsemZ VxmczIyXGxhbmcxMDMzXGhp J2fgZnHyLFYwzRazRAndl0N oXGYxXGZzMjJccGFyfX0= Embedded Images (test code = 0180730494) [facility]QUID [id number] 15:19:00* Test Item Value Reference Range Interpretation Comme nts Case Report (test code = 8630296976) Gynecologic Cytology?Case: [id number]? Authorizing Provider:?Lindy Godwin,?Collected:? 01/26/2019 1135?? [facility]? Received:?01/26/2019 2341?? [place]? First Screen:?Adali Munroe? Specimen:?Liquid Based Pap Preparation, CERVIX? Clinical Information (test code = 1225593285) routine Specimen Adequacy (test code = 25963-0) Satisfactory for Evaluation(Endocervical /Transformation Zone Component Absent) Interpretation (test code = 23696-2) Negative for intraepithelial lesion or malignancy Other Findings (test code = 1026135686) Shift In Blossom Suggestive Of Bacterial Vaginosis Comments (test code = 4481152228) m6svoMBiHNZubKJzZzBjRMK nEEYsx5taLWQngNObJaYlUt NcZnRuYmpcdWMxXGRlZmYwe 1nqi303jRJwb2lvTPUmQtP6 aTPvKWDnfJZeS958WXBzSTf of5ywf6GvYZVwaHZxr8Y2OK VDHHdxLoCbH097h3lac5nan lZfsDP4MNPnEJWsV2MmRY3u PRDimJNoPLiytoYaZwQ7AEi eTANfPtH9RHTsoCPyQMHtP6 22DCF4qAsmt1zqKPA3POSoL YAgQaKkMs6tsSPsI686HCRl QUDYQFBdqPj3LNIdvfNqrxI rcQPGf099V436v0qiYUHhcw VeqOxEkavkd9ojP877EHBfd GVydzEyMjQwXHBhcGVyaDE1 VAMdDW7xpgivYOT8UEhnBJW rjxPnJSRsmGOsK0H7WhBllY MkO7YeXYopDTKcydl4QlWjG k1waBRenPN7IFavh8nhk3ui sNWlIum5SUCkGpJoBtyiRUx do8Wjl1zrNXSkvt5iZBN2oC HtpFgmb4U0aXNzGSIruXLnu tHnMIJqXkW9PEhwYA0ttn99 QQLdSDL8hx8drHAzzWztrbV egVSmWCpyM3VsIQQww883BQ PnO4OqJPGkq6Z8moBaOkDvU RMjqFH0kbS2BCUaOEe1pIAr bcG0ejPzjGHbN2lgyE7lFNf mPN4xmzyeg6mvKAQ8ZLwiRT VeoTB1vkjlPVggIBXhIbS8e zTieHSlMFVbsTuyBGhxi075 QLK6WrHwXWIwr9AeG9HchUe yW33jiYokC35yQODrrKwpmF 4qdMqqhO5xPwDnObKvXWucM XJkXHBsYWluXGYwXGZzMjBc qYhkqQ1yWbMnBmZmBphzLQ7 aVHDkJ4qikSKyMWHxRPUzF8 uaAyKjeG7bwIdzMVfgLlOfX pEmXslgITYnyxQbjj5cMXLc haMsllMkwYJwIREwIzfbO9b 0w5WeV0vdn2abS0hbcUChtI pccGFyIFVuaXZlcnNpdHkgb 2ZxMFO5ZGOwCFBbdIVqxFDA rwMmG7znYQPte4NieL6jzLT AYGU2nMPwrcYeSOojLVi4BG RZhYV9SUSkfPP0y5ofLEQvW sI0CUNUjRycFXEjESI8EGnc T145jJsqoZDmPUThQXLrFXj fBZTdNRSnBjNxcLdhtD4kFf KxDfEqUlvdLN5rSMJxI8zrf DCnZFDnIPQpK7vnQxWndJ5d aFxmMVxjZjFcZnMxNlxpIEx nMFd3KVFSgDE0RBYNAGT4Rr X8F7zwwSTrmicgSXxnezWgT HBhclxwYXJ9 LMP (test code = 6638692536) Educational Note (test code = 5927575550) e2rqtPIoFSCjy8keBOCwyHX uZzEwMzNcZnRuYmpcdWMxIH xgzwLkYUdng3BbO7KbQXFtN FxhbnNpXGRlZmxhbmcxMDMz TBV7fvQhBVVkAPwwYZUlTRu wMd9rwCIpfMzkDaWhHJRgh9 fyfxUDjsjdcYv4l6jbENErV vY6oGKxLJtaH7jkieSdsCQx ADQyXCf6bK32XYXskI3jdSK vRAooliGxHlO2WRxdIMAaCp F4VODtpBZgOVMuB7hyVRRlF OFyC9CfVA9kHdpxOwa4MYN3 IDtccmVkMFxncmVlbjBcYmx 1BNYiE630SQS7rWaiy3bwIE N8MMCfZSZhJaAbGq5hcKIdU 579UUSbCLVQKJSeoJz4VCNe nrYbbtUsnIWEy504C375c3i wKXJyzkSdfUaAgxbeq5tcR9 19XHBhcGVydzEyMjQwXHBhc DNxzLW2SSZrLQ8yfpcfZOqx HFpbNEJshrW6YBAzeYZxX0C eGCPoGR9iyusyKNL5AZxwAQ TdSBW4CoVySWQsk7Qvquj9W eXhen6cji81XJU0m8ClxWoc BTG9BKR9MtNbLi2drHZmPMS kPM6yDiZuzXBaTTPdix73wL dkNMiqqdMmoP6bClKuEBFxq QTkCRIrKY3xtNEwKSRnrO2p cmxjXHBnYnJkcmhlYWRccGd kasBkTr5vySzvUTR6CJmdF5 kiuQ8kTrI1VQxyH6oseV7zO Bk0GMzszJQ1GNJphX4rLE5w npboh6jsSNvmASovIPApidD 1hoZ4MBObcOCfC2UxuF4cCL LxOM5ancpto0zjWXX8QIafK DHhOQE7OzPgANNmq3Nkibn6 DnWbb5GjqPMfEKvoD94py79 7YZKqssDvZ3jrlTXlstpufK HrmctlADzllfT9XULhALEfJ WluXGYxXGZzMjJcbGFuZzEw MzNcaGljaFxmMVxkYmNoXGY bFOahW8ksRyEgI4QeMJIdPn RdtGRNQVF6bIFmeNSdaQFxu X4drKSfULFjGRGbm7RaHBit YIAhs1OnBIXafV6wPHIqo0L vzMRjjOPshNd2XUCznuAffH KhtH62frViLV0iJJGaQHJdC GInuyEhqEWst9HrMtSPzEYd wYIubMSkCTBjTC3rsN7sVLM mjlCfMVR4nWXuv4poNCClz9 QhRkumyCW2BU7mGTPtjSTeP T9mW0B7eTUdBWQkQLAxELuz YI9ob6BruFx9FHSdKQJ8lRP uCuNnMiHzrYkkjfTlKF2cxI moXyJoklIqVk3oiF50HPEmF M5lMZIcIAjsaGVxmrPcNVBr dE0qA7OpNHAqH52iGIWtILK ysO9odZ6vtoRtpqUmpkQop6 4oWH6kQVAaxY8gwItwwD5uu mUgdGhlIGVmZmVjdCBvZiBm FTgiLCBjZLqntOl0KFZmORU 0mDZtMqQfKE20qmQmLQGrMF 22BZDxn9SqFSMoIVIhLE6io pEmHWH9ejRvt95fkQl0ZPdg yKDkwY9cIUrmwTTlrPYrQjS yeJGyEBpoPMUfXV2dACLgVA 55IHVuZXhwbGFpbmVkIGNsa R2vH2IwUEIcX06eBTFmHMZg wU9ilZ7iuxwiudJzTBElgCM zcyBvZiBhbnkgUGFwIFRlc3 EjmjAaiBw3CscplYMoinlaJ VxmczIyXGxhbmcxMDMzXGhp F2npGwSdHNIjzQokVXcnj0M oXGYxXGZzMjJccGFyfX0= Embedded Images (test code = 6318761256) [facility] [id number] 12:23:00* Test Item Value Reference Range Interpretation Comme nts URINE CULTURE (test code = 630-4) > 100,000 CFU/mL mixed aerobic organisms - suggests endogenous microbial contamination [facility] [id number] 12:23:00* Test Item Value Reference Range Interpretation Comme nts URINE CULTURE (test code = 630-4) > 100,000 CFU/mL mixed aerobic organisms - suggests endogenous microbial contamination [facility] CHLAMYDIA AMPLIFIED [id number] 23:43:00* Test Item Value Reference Range Interpretation Comme nts Lab Interpretation (test cod e = 82702-9) Normal [facility] CHLAMYDIA AMPLIFIED [id number] 23:43:00* Test Item Value Reference Range Interpretation Comme nts Lab Interpretation (test cod e = 44465-8) Normal [facility] CenterRUBELLA SCREEN (ROSAURA) [id number] 16:17:00 * Test Item Value Reference Range Interpretation Comme nts Rubella screen IgG (test code = 1560146895) Positive Negative LUTHER (test code = LUTHER) Positive - Indicat es the patient was exposed to Rubella through infection or vaccination.Negative - Indicates the patient could be susceptible to Rubella infection.Equivocal - A second specimen should be sent. [facility] ANTIBODY [id number] 16:17:00* Test Item Value Reference Range Interpretation Comme [facility] VZV IgG antibody (test code = 68663-8) Positive Negative LUTHER (test code = LUTHER) Positive - Indicat es the patient was exposed to VZV through infection or vaccination.Negative - Indicates the patient could be susceptible to VZV infection.Equivocal - A second specimen should be sent for testing. [facility] Center[facility] ([place]) [id number] 16:17:00 * Test Item Value Reference Range Interpretation Comme [facility] Rubella screen IgG (test code = 9509747743) Positive Negative LUTHER (test code = LUTHER) Positive - Indicat es the patient was exposed to Rubella through infection or vaccination.Negative - Indicates the patient could be susceptible to Rubella infection.Equivocal - A second specimen should be sent. [facility] ANTIBODY [id number] 16:17:00* Test Item Value Reference Range Interpretation Comme [facility] VZV IgG antibody (test code = 75999-3) Positive Negative LUTHER (test code = LUTHER) Positive - Indicat es the patient was exposed to VZV through infection or vaccination.Negative - Indicates the patient could be susceptible to VZV infection.Equivocal - A second specimen should be sent for testing. [facility] ONLY - SYPHILIS [id number] 14:51:00* Test Item Value Reference Range Interpretation Comme [facility] Syphilis IgG/IgM (test code = 69593-5) Non-reactive Non-reactive LUTHER (test code = LUTHER) Non-reactive - No serologic evidence of T. pallidum infection. Cannot exclude incubating or early syphilis. Submit a second specimen in 2-4 weeks if syphilis is clinically suspected.Equivocal - Further testing to follow.Reactive - Further testing to follow. Lab Interpretation (test code = 17321-3) Normal [facility] ONLY - SYPHILIS [id number] 14:51:00* Test Item Value Reference Range Interpretation Comme [facility] Syphilis IgG/IgM (test code = 26949-4) Non-reactive Non-reactive LUTHER (test code = LUTHER) Non-reactive - No serologic evidence of T. pallidum infection. Cannot exclude incubating or early syphilis. Submit a second specimen in 2-4 weeks if syphilis is clinically suspected.Equivocal - Further testing to follow.Reactive - Further testing to follow. Lab Interpretation (test code = 70764-4) [facility] [id number] 11:22:09* Test Item Value Reference Range Interpretation Comme nts TITERED AB (test code = 1141) Ab Titered: Fya Performed at [facility] Laboratory Services [place] [address]Toll Free: [phone] No. [id number] AB TITER (test code = 247) Antibody Titer: <1 Performed at [facility] Laboratory Services [place] [address]Toll Free: [phone] No. [id number] [facility] [id number] 11:22:09* Test Item Value Reference Range Interpretation Comme nts TITERED AB (test code = 1141) Ab Titered: Fya Performed at [address] Free: [phone] No. [id number] AB TITER (test code = 247) Antibody Titer: <1 Performed at [facility] Laboratory Services [place] [address]Toll Free: [phone] No. [id number] [facility] [id number] 11:22:06* Test Item Value Reference Range Interpretation Comme nts TITERED AB (test code = 1141) Ab Titered: K Performed at [address] Free: [phone] No. [id number] AB TITER (test code = 247) Antibody Titer: <1 Performed at [facility] Laboratory Services [address] Free: [phone] No. [id number] [facility] [id number] 11:22:06* Test Item Value Reference Range Interpretation Comme nts TITERED AB (test code = 1141) Ab Titered: K Performed at [facility] Laboratory Services [address] Free: [phone] No. [id number] AB TITER (test code = 247) Antibody Titer: <1 Performed at [facility] Laboratory Services [address] Free: [phone] No. [id number] [facility] [id number] 10:41:26 ANTIBODY EKKsca-MnxIwmn-O Comment: Performed at [facility] Laboratory [address] Free: [phone] No. [id number] [facility] IDENT[facility]ICATION 2019-01-27 10:41:26ANTIBODY ACXpff-RijNhgg-R Comment: Performed at [facility] Laboratory Services [address] Free: [phone] No. [id number] [facility] [id number] 10:41:26ANTIBODY RMPdie-IjkXoun-S Comment: Performed at [facility] Laboratory Services [address] Free: [phone] No. [id number] [facility] [id number] 10:41:26ANTIBODY CJPzie-ExiOzwb-K Comment: Performed at [facility] Laboratory Services [address] Free: [phone] No. [id number] [facility] CenterHCV [id number] 09:46:00 * Test Item Value Reference Range Interpretation Comme nts HCV Semi-Quantitative (test code = 77937-0) [facility]-AB WITH [id number] 09:46:00* Test Item Value Reference Range Interpretation Comme nts HIV Semi-quantitative (test code = 79088-6) Negative Negative LUTHER (test code = LUTHER) Non-reactive for HIV-1 antigen and HIV-1/HIV-2 antibodies.?No laboratory evidence of HIV infection.?Repeat in 2-4 weeks if acute HIV infection is suspected. [facility] [id number] 09:46:00* Test Item Value Reference Range Interpretation Comme nts HCV Semi-Quantitative (test code = 47318-0) [facility] WITH [id number] 09:46:00* Test Item Value Reference Range Interpretation Comme nts HIV Semi-quantitative (test code = 47485-6) Negative Negative LUTHER (test code = LUTHER) Non-reactive for HIV-1 antigen and HIV-1/HIV-2 antibodies.?No laboratory evidence of HIV infection.?Repeat in 2-4 weeks if acute HIV infection is suspected. [facility] CenterANT[facility]ING [id number] 09:35:20* Test Item Value Reference Range Interpretation Comme nts ANTIGEN ID (test code = 1687) Leb Antigen Negative Performed at [facility] Laboratory Services - [address] Free: [phone] No. [id number] ANTIGEN ID (test code = 62) M Antigen Positive Performed at [facility] Laboratory Services - [address] Free: [phone] No. [id number] ANTIGEN ID (test code = 63) N Antigen Negative Performed at [facility] Laboratory Services - [address] Free: [phone] No. [id number] ANTIGEN ID (test code = 64) Tg Antigen Positive Performed at [facility] Laboratory Services - [address] Free: [phone] No. [id number] ANTIGEN ID (test code = 1688) Fya Antigen Negative Performed at [facility] Laboratory Services [address] Free: [phone] No. [id number] [facility] [id number] 09:35:20* Test Item Value Reference Range Interpretation Comme nts ANTIGEN ID (test code = 1687) Leb Antigen Negative Performed at [facility] Laboratory Services [address] Free: [phone] No. [id number] ANTIGEN ID (test code = 62) M Antigen Positive Performed at [facility] Laboratory Services [address] Free: [phone] No. [id number] ANTIGEN ID (test code = 63) N Antigen Negative Performed at [facility] Laboratory [address] Free: [phone] No. [id number] ANTIGEN ID (test code = 64) Tg Antigen Positive Performed at [address] Free: [phone] No. [id number] ANTIGEN ID (test code = 1688) Fya Antigen Negative Performed at [facility] [address] Free: [phone] No. [id number] [facility] [id number] 09:30:00 * Test Item Value Reference Range Interpretation Comme nts HBsAg Semi-Quantitative (veronica t code = 5195-3) [facility] B SURFACE [id number] 09:30:00 * Test Item Value Reference Range Interpretation Comme nts HBsAg Semi-Quantitative (veronica t code = 5195-3) [facility] [id number] 08:58:34* Test Item Value Reference Range Interpretation Comme nts ANTIGEN ID (test code = 1687) Fyb Antigen Positive Performed at [address] Free: [phone] No. [id number] [facility] [id number] 08:58:34* Test Item Value Reference Range Interpretation Comme nts ANTIGEN ID (test code = 1687) Fyb Antigen Positive Performed at [facility] [address] Free: [phone] No. [id number] [facility] [id number] 08:49:20* Test Item Value Reference Range Interpretation Comme nts ANTIGEN ID (test code = 1687) Jkb Antigen Positive Performed at [address] Free: [phone] No. [id number] ANTIGEN ID (test code = 62) P1 Antigen Positive Performed at [address] Free: [phone] No. [id number] ANTIGEN ID (test code = 63) S Antigen Negative Performed at [address] Free: [phone] No. [id number] ANTIGEN ID (test code = 64) s Antigen Positive Performed at [facility] [address] Free: [phone] No. [id number] ANTIGEN ID (test code = 1688) e Antigen Positive Performed at [address] Free: [phone] No. [id number] [facility]YPING [id number] 08:49:20* Test Item Value Reference Range Interpretation Comme nts ANTIGEN ID (test code = 1687) Jkb Antigen Positive Performed at [facility] Services - [address] Free: [phone] No. [id number] ANTIGEN ID (test code = 62) P1 Antigen Positive Performed at [facility] Services - [address] Free: [phone] No. [id number] ANTIGEN ID (test code = 63) S Antigen Negative Performed at [facility] Services - [address] Free: [phone] No. [id number] ANTIGEN ID (test code = 64) s Antigen Positive Performed at [facility] Services - [address] Free: [phone] No. [id number] ANTIGEN ID (test code = 1688) e Antigen Positive Performed at [facility] Services - [address] Free: [phone] No. [id number] [facility] [id number] 08:32:43* Test Item Value Reference Range Interpretation Comme nts ANTIGEN ID (test code = 1687) C Antigen Positive Performed at [facility] Services - [address] Free: [phone] No. [id number] ANTIGEN ID (test code = 62) c Antigen Positive Performed at [facility] Services - [address] Free: [phone] No. [id number] ANTIGEN ID (test code = 63) E Antigen Positive Performed at [facility] Services - [address] Free: [phone] No. [id number] ANTIGEN ID (test code = 64) K Antigen Negative Performed at [facility] Services - [address] Free: [phone] No. [id number] ANTIGEN ID (test code = 1688) Jka Antigen Positive Performed at [facility] Services [address] Free: [phone] No. [id number] [facility] CenterANT[facility] TYPING [id number] 08:32:43* Test Item Value Reference Range Interpretation Comme nts ANTIGEN ID (test code = 1687) C Antigen Positive Performed at [facility] Services - [address] Free: [phone] No. [id number] ANTIGEN ID (test code = 62) c Antigen Positive Performed at [facility] - [address] Free: [phone] No. [id number] ANTIGEN ID (test code = 63) E Antigen Positive Performed at [facility] - [address] Free: [phone] No. [id number] ANTIGEN ID (test code = 64) K Antigen Negative Performed at [address] Free: [phone] No. [id number] ANTIGEN ID (test code = 1688) Jka Antigen Positive Performed at [facility] [address] Free: [phone] No. [id number] [facility] CenterPR[facility] WORKUP, BLOOD [id number] 07:33:05 * Test Item Value Reference Range Interpretation Comme nts ABO & RH (test code = 20) O POSITIVE Performed at [address] Free: [phone] No. [id number] IAT (test code = 1185) Positive Performed at [facility] [address] Free: [phone] No. [id number] [facility] CenterPREN[facility]AL WORK[facility], BLOOD [id number] 07:33:05 * Test Item Value Reference Range Interpretation Comme nts ABO & RH (test code = 20) O POSITIVE Performed at [facility] Laboratory Services - [facility] Blood [address] Free: [phone] No. [id number] IAT (test code = 1185) Positive Performed at [facility] Laboratory Services [facility] Blood [address] Free: [phone] No. [id number] [facility] CenterGLU[facility]SE 1 HOUR POST [id number] 04:06:00* Test Item Value Reference Range Interpretation Comme nts GLUC 1 HR (test code = 9580252566) 116 mg/dL 120-170 L Lab Interpretation (test cod e = 01150-8) Abnormal [facility] CenterGLU[facility]SE [facility] HOUR POST [id number] 04:06:00* Test Item Value Reference Range Interpretation Comme nts GLUC 1 HR (test code = 8088312480) 116 mg/dL 120-170 L Lab Interpretation (test cod e = 53214-5) Abnormal [facility] WITH [id number] 03:24:00* Test Item Value Reference Range Interpretation [...] 32.2 g/dL 31.6-35.1 RDW-SD (test code = 21438-6) 41.0 fL 39-49.9 RDW-CV (test code = 788-0) 13.2 % 12-15.5 PLT (test code = 777-3) See_Comment [Automated Facultea ge] The system which generated this result transmitted reference range: 166 - 358 10*3/?L. The reference range was not used to interpret this result as normal/abnormal. MPV (test code = 96027-4) 9.9 fL 9.5-12.9 NRBC/100 WBC (test code = 6854344428) See_Comment [Automated Tango Card ssage] The system which generated this result transmitted reference range: 0.0 - 10.0 /100 WBCs. The reference range was not used to interpret this result as normal/abnormal. NRBC x10^3 (test code = 3471678690) <0.01 See_Comment [Automated Facultea ge] The system which generated this result transmitted reference range: 10*3/?L. The reference range was not used to interpret this result as normal/abnormal. GRAN MAT (NEUT) % (test code = 770-8) 73.4 % IMM GRAN % (test code = 2628504106) 0.50 % LYMPH % (test code = 736-9) 18.3 % MONO % (test code = 5905-5) 6.2 % EOS % (test code = 713-8) 1.1 % BASO % (test code = 706-2) 0.5 % GRAN MAT x10^3(ANC) (test code = 6994441054) 6.12 10*3/uL 1.88-7.09 IMM GRAN x10^3 (test code = 5501858161) 0.04 10*3/uL 0-0.06 LYMPH x10^3 (test code = 731-0) 1.53 10*3/uL 1.32-3.29 MONO x10^3 (test code = 742-7) 0.52 10*3/uL 0.33-0.92 EOS x10^3 (test code = 711-2) 0.09 10*3/uL 0.03-0.39 BASO x10^3 (test code = 704-7) 0.04 10*3/uL 0.01-0.07 Lab Interpretation (test code = 78909-6) Abnormal [facility] WITH [id number] 03:24:00* Test Item Value Reference Range Interpretation [...] 32.2 g/dL 31.6-35.1 RDW-SD (test code = 27009-8) 41.0 fL 39-49.9 RDW-CV (test code = 788-0) 13.2 % 12-15.5 PLT (test code = 777-3) See_Comment [Automated messa ge] The system which generated this result transmitted reference range: 166 - 358 10*3/?L. The reference range was not used to interpret this result as normal/abnormal. MPV (test code = 40908-7) 9.9 fL 9.5-12.9 NRBC/100 WBC (test code = 7158394205) See_Comment [Automated Tango Card ssage] The system which generated this result transmitted reference range: 0.0 - 10.0 /100 WBCs. The reference range was not used to interpret this result as normal/abnormal. NRBC x10^3 (test code = 9998824368) <0.01 See_Comment [Automated messa ge] The system which generated this result transmitted reference range: 10*3/?L. The reference range was not used to interpret this result as normal/abnormal. GRAN MAT (NEUT) % (test code = 770-8) 73.4 % IMM GRAN % (test code = 9173091451) 0.50 % LYMPH % (test code = 736-9) 18.3 % MONO % (test code = 5905-5) 6.2 % EOS % (test code = 713-8) 1.1 % BASO % (test code = 706-2) 0.5 % GRAN MAT x10^3(ANC) (test code = 9705120334) 6.12 10*3/uL 1.88-7.09 IMM GRAN x10^3 (test code = 6135077144) 0.04 10*3/uL 0-0.06 LYMPH x10^3 (test code = 731-0) 1.53 10*3/uL 1.32-3.29 MONO x10^3 (test code = 742-7) 0.52 10*3/uL 0.33-0.92 EOS x10^3 (test code = 711-2) 0.09 10*3/uL 0.03-0.39 BASO x10^3 (test code = 704-7) 0.04 10*3/uL 0.01-0.07 Lab Interpretation (test code = 44526-2) Abnormal [facility] [id number] 15:27:00* Test Item Value Reference Range Interpretation Comme nts POCT PREG (test code = 1605) Positive On board controls acceptable with C Line (test code = 3574) Yes POCT PREG LOT # (test code = 3575) POCT PREG TEST DATE ( test code = 3576) [facility] URINALYSIS W/O SPECIFIC [id number] 15:27:00* Test Item Value Reference Range Interpretation [...] = 3257) Neg Negative - Negati ve [facility] CenterPODC [id number] 15:27:00* Test Item Value Reference Range Interpretation Comme nts POCT PREG (test code = 1605) Positive On board controls acceptable with C Line (test code = 3574) Yes POCT PREG LOT # (test code = 3575) POCT PREG TEST DATE ( test code = 3576) [facility] URINALYSIS W/O SPECIFIC [id number] 15:27:00* Test Item Value Reference Range Interpretation [...] = 3257) Neg Negative - Negati ve [facility] Notes Date/Time Note Provider Source 2023-12-08 12:15:00 Images from the original note were not included. Venipuncture collection performed by clean technique on the left anticubitus. Total of 1 attempts were made. Slight pressure and a bandage/dressing were applied to the site(s). The patient experienced no complications. The following specimens were processed according to instructions and sent to [facility] laboratories per lab order on 12/08/2023 : LT BLUE SST 2 RED LAV 1 PPT DK GREEN (LiHep) DK GREEN (SodH) VILLEGAS DK BLUE (K2) DK BLUE (S) ACD [facility] 10:12:45 Addended by: TONG CARLSON on: 09/17/2023 10:12 AM Modules accepted: Orders [facility] 2023-09-17 09:14:01 Spoke with patient, [...] understanding. Tong Carlson RN 09/17/2023 9:20 AM [facility] 2023-09-17 08:47:15 Patient states she had her IUD removed on 09/08. She states she started bleeding on and has been bleeding heavy with blood clots since. Nurse notified. [facility] Ninfa Myers [facility] 2023-08-10 09:01:30 Chief Complaint Patient presents with Dizziness Ear Problem Tingling sensation in both ears but worst in the right ear. Ringing of the ears. [facility] 2021-05-30 13:38:00 [id number] [facility] PATIENT NAME: TYRA RIBERA ADMIT DATE: 05/29/21 ACCOUNT NO: [id number] ROOM NO: V.3028 AGE: 30 REPORT TYPE: [...] was admitted through the preoperative department of [facility]. Please refer to operative note. Postoperatively, she [...] Dictated By: Enrike Yeboah DO WT: DS:DAMIEN/JOSE A/HERNANDO Conf#: [id number]/DID#: [id number] PATIENT NAME: TYRA RIBERA Authenticated and Edited by Enrike Yeboah DO On 06/01/21 2:30:04 PM at 0237 PATIENT NAME: TYRA RIBERA [facility] 2021-05-29 11:29:00 [id number] [facility] PATIENT NAME: TYRA RIBERA ADMIT DATE: 05/29/21 ACCOUNT NO: [id number] ROOM NO: V.3028 AGE: 30 REPORT TYPE: PROGRESS NOTE SEX: [...] Enrike Yeboah DO WT: PN:DAMIEN/JOSE A/HERNANDO Conf#: [id number]/DID#: [id number] PATIENT NAME: TYRA RIBERA Authenticated and Edited by Enrike Yeboah DO On 06/01/21 2:29:11 PM at 0231 PATIENT NAME: TYRA RIBERA [facility] 2021-05-28 20:08:00 [id number] [facility] PATIENT NAME: TYRA RIBERA ADMIT DATE: 05/29/21 ACCOUNT NO: [id number] ROOM NO: V.3028 AGE: 30 REPORT TYPE: OPERATIVE REPORT SEX: F DATE OF : 89 ADMITTING PHYSICIAN:Enrike Yeboah DO ATTENDING PHYSICIAN:Enrike Yeboah DO OPERATION DATE: PREOPERATIVE DIAGNOSIS: Morbid obesity (body mass index greater than 50). POSTOPERATIVE DIAGNOSIS: Morbid obesity (body mass index greater than 50). PROCEDURE PERFORMED: Laparoscopic Joy-en-Y gastric bypass (100 cm Joy limb). SURGEON: Enrike Yeboah DO ORNAMENTAL IRON ERECTOR: Ash Larson. ANESTHESIA: General plus Marcaine. ESTIMATED [...] legs and was secured. Tilt test performed. [place] time-out taken, everyone involved in the case [...] was placed side by side. A jejunojejunostomy qmxb-mb-aejc fashion was created, stapled. Byron enterotomy was [...] RIBERA performed a screening endoscopy. My second assistant infant toddler teacher placed a soft atraumatic boewl clamp on [...] Enrike Yeboah DO WT: OP:DAMIEN/JOSE A/HERNANDO Conf#: [id number]/DID#: [id number] Authenticated and Edited by Enrike Yeboah DO On 05/30/21 11:04:38 AM at 1107 PATIENT NAME: TYRA RIBERA [facility] 2021-04-04 16:50:00 [id number] [facility] PATIENT NAME: TYRA RIBERA ADMIT DATE: 04/04/21 ACCOUNT NO: [id number] ROOM NO: AGE: 30 REPORT TYPE: ENDOSCOPY [...] 4:50 PM Procedure Code(s): --- Professional --- 16556, Esophagogastroduodenoscopy, flexible, transoral; with biopsy, single or multiple CPT copyright 2020 [employer]. All rights reserved. The codes documented in this report are preliminary and upon data assistant review may be revised to meet current compliance requirements. Scope In: Scope Out: Provation {[id number]}.pdf ProVation FT PDF at 1750 PATIENT NAME: TYRA RIBERA [facility] 2021-02-21 16:30:00 [id number] [address] PATIENT NAME: TYRA RIBERA ADMIT DATE: 02/21/21 ACCOUNT NO: [id number] ROOM NO: AGE: 30 REPORT TYPE: OPERATIVE REPORT SEX: F ADMITTING PHYSICIAN: ATTENDING PHYSICIAN: Philly Montemayor MD OPERATION DATE: 02/21/2021 PREOPERATIVE DIAGNOSES: 1. Menorrhagia. 2. Fibroid uterus. 3. Cervical stenosis. 4. Status post multiple C-sections. POSTOPERATIVE DIAGNOSES: 1. Menorrhagia. 2. Fibroid uterus. 3. Cervical stenosis. 4. Status post multiple C-sections. PROCEDURES PERFORMED: Diagnostic hysteroscopy, insertion of the IUD (Liletta). SURGEON: Philly Montemayor MD. ORNAMENTAL IRON ERECTOR: ANESTHESIA: General with LMA. SPECIMENS: No specimens. [...] was inserted after dilating the cervix to 16-Sami without any problems. Then, the device was [...] given. Dictated By: Philly Montemayor MD WT: OP:RODNEY/AVERY/HERNANDO Conf#: [id number]/DID#: [id number] Authenticated by Philly Montemayor MD On 03/28/2021 04:26:53 PM at 0426 PATIENT NAME: TYRA RIBERA [facility] 2021-02-21 15:37:00 [facility] ([facility]) Brief Op Note REPORT#:[id number] REPORT STATUS: Signed DATE:02/21/21 TIME:153 PATIENT: TYRA RIBERA UNIT #: [id number] ROOM/BED: : 90 AGE: 30 SEX: F ATTEND: Philly Montemayor MD ADM AUTHOR: Philly Montemayor MD * ALL edits or amendments must be made on the electronic/computer document * Op/Inv Proc Note - Brief Pre-procedure diagnosis: menorrhagis, control Post-procedure diagnosis: same as pre procedure dx Procedures performed: diagnostic hysteroscopy IUD Liletta insertion Primary Surgeon: albina Bilingual Secretary(s): none (weatheral) Anesthesia: general anesthesia Findings: IUD positioned well, sounding length 11.5cm, inserted to 11cm, austin cervix, significantly AF AV uterus and cavity, no masses, no cavity distortion, cervix elongated Complications: none Estimated blood loss in ml's: none Specimens removed/altered: none Wound class: clean-contaminated Disposition: plan to D/C home Dictation number: [id number] at 1630 RPT #: [id number] END OF REPORT [facility]
[2024-04-11] MEDS ORDERED: HYDROMORPHONE HCL 1 MG/ML INJ ONE ×5 (09:31→20:03)
[2024-04-11] MEDS ORDERED: FAMOTIDINE 20 MG/2 ML VIAL IV ONE (09:31)
[2024-04-11] MEDS ORDERED: ONDANSETRON 4 MG/2 ML VIAL ONE (09:31)
[2024-04-11 09:52] LABS: Specific Gravity 1.021 (1.005-1.030); Urine Bilirubin NEGATIVE (Negative); Urine Blood Negative (Negative); Urine Clarity Clear (Clear); Urine Color Colorless (Yellow); Urine Glucose NEGATIVE (Negative); Urine Ketones NEGATIVE (Negative); Urine Microscopic Reflex YN NO UMIC; Urine Nitrite NEGATIVE (Negative); Urine Protein NEGATIVE (Negative); Urine Urobilinogen Normal (Normal); Urine pH 6.5 (5.0-7.0)
[2024-04-11 10:00] LABS: Absolute Eosinophils 0.1 K/uL (0-0.5); Absolute Lymphocytes (CBC) 1.2 K/uL (0.7-4.9); Absolute Monocytes 0.6 K/uL (0.1-1.3); Absolute Neutrophil 6.1 K/uL (1.8-8.0); Basophils % 0.4 % (0-1.3); Eosinophils % 0.9 % (0-4.4); Hematocrit 33.8 % (36.0-45.0); Lymphocytes % 15.4 % (15.3-44.8); MCH 22.4 pg (27.0-35.0); MCHC 32.6 g/dL (32.0-36.0); MCV 68.8 fL (80-100); MPV 8.1 fL (7.6-11.3); Monocytes % 7.2 % (3.3-12.3); Neutrophils % 76.1 % (41.7-73.7); Platelets 315 thou/uL (152-406); RBC Red Blood Cell Count 4.91 M/uL (3.86-4.86); Red Cell Distribution Width 15.5 % (12.1-15.2)
[2024-04-11 10:11] LABS: Albumin 3.6 g/dL (3.4-5.0); Anion Gap 7.1 mEq/L (5.0-15.0); Bilirubin Total 0.4 mg/dL (0.2-1.0); Globulin 3.6 g/dL (2.3-3.5); Potassium 4.1 mEq/L (3.5-5.1); Protein, Total 7.2 g/dL (6.4-8.2)
[2024-04-11 11:49] LABS: Anisocytosis SLIGHT; Blood Morphology Comment NOTED (NOT SEEN); Microcytosis 2+; Platelet Estimate ADEQ; Platelets Clumped NOTED; White Blood Cell Scan OK (OK)
[2024-04-11 11:50] LABS: Ovalocytes 1+
--- NOTE | 2024-04-11 12:06 | RAD REPORT ---
EXAMINATION: CT ABDOMEN AND PELVIS WITH CONTRAST CLINICAL INDICATION: Female, 33 years old. [facility] MAIN epigastric abd pain, gastric bypass, worse pain IV ORAL Bed Name: 17 TECHNIQUE: CT abdomen and pelvis was performed, after the administration of IV contrast, as [facility]. Axial, sagittal and coronal reconstructions were obtained. One or more of the following dose reduction techniques were used: Automated exposure control, adjustment of the mA and k V according to patient size, and iterative reconstruction. Unless otherwise specified, incidental findings do not require dedicated imaging follow-up. COMPARISON: 04/10/2024 CT abdomen and pelvis FINDINGS: LOWER CHEST: The visualized lung bases are clear. LIVER: Normal in size and contour. No focal lesion. BILIARY SYSTEM: Status post cholecystectomy. SPLEEN: Normal size. No focal lesion. PANCREAS: No mass, ductal dilation, or aury-pancreatic fluid. ADRENALS: Normal; no mass. KIDNEYS: Normal size and contour. No hydronephrosis. URINARY BLADDER: Unremarkable. GASTROINTESTINAL TRACT: No evidence of free air, significant intra-abdominal free fluid, bowel obstru ction or abscess. Pattern of mild whorling of the central vessels of the mesentery with moderate mesenteric root fat stranding again seen. Mildly prominent lower abdominal contrast-filled small sia l loops, with no clear transition point. The proximal colon is redundant with cecum lying in the left para midline region. Sequelae of Marcela-en-Y gastric bypass. Mild free pelvic fluid, progressive since the prior exam. APPENDIX: Normal appendix. LYMPH NODES: No lymphadenopathy. MUSCULOSKELETAL: No acute or suspicious osseous abnormality. ADDITIONAL FINDINGS: None. IMPRESSION: Mildly progressive small-volume pelvic free fluid, nonspecific. This could be physiologic or related to an ongoing infectious/inflammatory process. Mildly prominent caliber of contrast-filled small bowel loops in the central to lower abdomen, with n o evidence of a focal transition point. This may suggest mild ileus.
--- NOTE | 2024-04-11 15:09 | EDPHYS ---
Physician Documentation [facility] Name: Tyra Ribera Age: 33 yrs Sex: Female : 1990 Arrival Date: 04/11/2024 Time: 09:16 Bed 17 Private MD: ED Physician Ron Blackman HPI: 04/11 09:33 This 33 yrs old Female presents to ER via Ambulatory with complaints of Abdominal Pain. rn 09:33 The patient presents with abdominal pain in the upper abdomen. Onset: The rn symptoms/episode began/occurred yesterday. The symptoms do not radiate. Associated signs and symptoms: Pertinent positives: nausea, Pertinent negatives: blood in stools, chest pain, constipation, diarrhea, dysuria, fever, hematuria, shortness of breath, vomiting, vomiting blood. The symptoms are described as crampy. Modifying factors: The symptoms are alleviated by nothing, the symptoms are aggravated by touching the area. Severity of pain: At its worst the pain was moderate in the emergency department the pain is unchanged. The patient has experienced a previous episode. Patient reports epigastric abdominal pain that began yesterday morning. Seen here with negative workup. Followed up with Dr. Adams today, sent back for repeat imaging and workup given patient still having pain. Patient with history of gastric bypass. No vomiting. No fever. No trauma. No blood in stool.. 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 - Infectious Disease History:: Denies. - Social history:: Smoking status: unknown. - Family history:: not pertinent. - Hospitalizations: : No recent hospitalization is reported. ROS: 09:41 Constitutional: Negative for fever, chills, and weight loss, Neck: Negative for injury, rn pain, and swelling, Cardiovascular: Negative for chest pain, palpitations, and edema, Respiratory: Negative for shortness of breath, cough, wheezing, and pleuritic chest pain, Abdomen/GI: Negative for abdominal pain, nausea, vomiting, diarrhea, and constipation, Back: Negative for injury and pain, MS/Extremity: Positive for bilateral shoulder pain and injury and right thumb pain Skin: Negative for injury, rash, and discoloration, Neuro: Negative for headache, weakness, numbness, tingling, and seizure, Exam: 09:45 Constitutional: This is a well developed, well nourished patient who is awake, alert, rn appears uncomfortable Head/Face: Normocephalic, atraumatic. Cardiovascular: Regular rate and rhythm. No pulse deficits. Respiratory: No increased work of breathing, no retractions or nasal flaring. Abdomen/GI: Soft, epigastric and left upper quadrant tenderness. MS/ Extremity: Pulses equal, no cyanosis. Neuro: Awake and alert, GCS 15 Vital Signs: 09:25 BP 123 / 78; Pulse 83; Resp 16; Temp 98; Pulse Ox 99% ; bp 10:48 BP 115 / 70; Pulse 88; Resp 16; Pulse Ox 100% on R/A; mb9 11:43 BP 147 / 86; Pulse 84; Resp 18; Pulse Ox 100% on R/A; mb9 12:33 BP 117 / 73; Pulse 74; Resp 18; Pulse Ox 100% on R/A; mb9 13:19 BP 115 / 75; Pulse 69; Resp 18; Pulse Ox 100% on R/A; mb9 15:10 BP 113 / 73; Pulse 73; Resp 16; Pulse Ox 98% ; mb9 17:00 BP 134 / 78; Pulse 60; Resp 18; Pulse Ox 100% on R/A; mb9 19:20 BP 107 / 70; Pulse 83; Resp 17; Temp 98.1; Pulse Ox 100% on R/A; Pain 8/10; rg5 19:20 Pain Scale: Adult rg5 MDM: 09:17 Patient medically screened. rn 11:05 ED course: Patient doing much better after pain medication, resting comfortably.. rn 13:59 ED course: Dr. Adams in OR, will take a look at images and call back. rn 15:06 Differential diagnosis: non-specific abd pain, Complication of gastric bypass, vascular rn problem, obstruction, ileus, dehydration, torsion of mesenteric. Data reviewed: vital signs, nurses notes, lab test result(s), radiologic studies, CT scan, and as a result, I will admit patient. Consideration of Admission/Observation Patient was admitted/placed on observation. Escalation of care including admission/observation considered. Counseling: I had a detailed discussion with the patient and/or guardian regarding the historical points, exam findings, and any diagnostic results supporting the discharge/admit diagnosis, lab results, radiology results, the need to transfer to another facility, [facility] does not immediately have the required specialist. ED course: Discussed case with Dr. Adams, request patient be transferred for bariatric surgeon. Patient gave me the name of her bariatric surgeon, was 2.5 years ago. Seems to be credentialed to [facility] and [facility].. 18:10 ED course: [facility] bariatric surgeon declined, stating this was not a bariatric problem rn despite not speaking or getting report from me. [facility] declined due to capacity. [facility] declined because they do not have bariatric surgeon. Circling back to [facility]. . 18:40 ED course: Consulted with Dr. Yeboah, patient's bariatric surgeon, he is not currently rn in [facility] and cannot accept patient for transfer.. 19:26 ED course: Accepted for transfer to [facility], taken without Doc-Doc report. rn 04/11 09:27 Order name: CBC with Diff; Complete Time: 12: rn 04/11 09:27 Order name: CMP; Complete Time: 11:00 rn 04/11 09:27 Order name: Lipase; Complete Time: 11:00 rn 04/11 09:27 Order name: Urinalysis w/ reflexes; Complete Time: 11:00 rn 04/11 11:50 Order name: CBC Smear Scan; Complete Time: 12:09 EDNV 04/11 09:27 Order name: CT Abd/Pelvis - PO and IV Contrast; Complete Time: 12:09 rn 04/11 09:27 Order name: IV Saline Lock; Complete Time: :44 rn 04/11 09:27 Order name: Labs collected and sent; Complete Time: :44 rn Administered Medications: 09:37 Drug: Ondansetron IVP 4 mg IVP once; over 2 minutes Route: IVP; Site: left antecubital; mb9 10:52 Follow up: Response: No adverse reaction mb9 09:40 Drug: Famotidine IVP 20 mg IVP once; dilute with 10 mL 0.9% NaCl; give over 2 minutes mb9 Route: IVP; Site: left antecubital; 10:52 Follow up: Response: No adverse reaction mb9 09:43 Drug: HYDROmorphone IVP 1 mg IVP once Route: IVP; Site: left antecubital; mb9 10:52 Follow up: Response: No adverse reaction mb9 11:43 Drug: HYDROmorphone IVP 1 mg IVP once Route: IVP; Site: left antecubital; mb9 12:40 Follow up: Response: No adverse reaction mb9 15:10 Drug: HYDROmorphone IVP 1 mg IVP once Route: IVP; Site: left antecubital; mb9 16:15 Follow up: Response: No adverse reaction mb9 17:49 Drug: HYDROmorphone IVP 1 mg IVP once Route: IVP; Site: left antecubital; mb9 18:57 Follow up: Response: No adverse reaction mb9 20:05 Drug: HYDROmorphone IVP 1 mg IVP once Route: IVP; Site: left antecubital; rg5 20:13 Follow up: Response: No adverse reaction; Pain is decreased rg5 Disposition Summary: 04/11/24 15:08 Transfer Ordered Notes: Reason: Higher level of care rn Condition: Stable rn Problem: new rn 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 EDMS EDMS 09:28 09:28 COMPREHENSIVE METABOLIC PANEL+C.LAB.BRZ ordered. EDMS EDMS 09:28 09:28 LIPASE+C.LAB.BRZ ordered. EDMS EDMS 09:28 09:28 Urinalysis+U.LAB.BRZ ordered. EDMS EDMS 09:46 09:41 Constitutional: This is a well developed, well nourished patient who is awake, rn alert, and in no acute distress. Ambulatory to room Head/Face: Normocephalic, left periorbital ecchymosis and bruising. Eyes: Pupils equal round and reactive to light, extra-ocular motions intact. Neck: No midline cervical tenderness Chest/axilla: No rib tenderness or crepitus Cardiovascular: Regular rate and rhythm. No pulse deficits. MS/ Extremity: Pulses equal, no cyanosis. Neurovascular intact. Mild painful range of motion bilateral shoulders with mild tenderness at anterior shoulders bilaterally. Mild tenderness bilaterally distal clavicles. No swelling. No gross deformities. Patient with good range of motion, does not seem limited until extreme movements. Swelling of the PIP of the right thumb, no open wounds. No gross deformity. Neuro: Awake and alert, GCS 15, oriented to person, place, time, and situation. Cranial nerves II-XII grossly intact. Motor strength 5/5 in all extremities. Sensory grossly intact. Cerebellar exam normal. Normal gait. rn : 15:08 Dr. mcgowan rn : 15:08 [facility] System rn rn 20:18 19:26 Dr. mcgowan rg5
--- NOTE | 2024-04-11 15:09 | ER ---
[facility] Name: Tyra Ribera Age: 33 yrs Sex: Female : 1990 Arrival Date: 04/11/2024 Time: 09:16 Bed 17 Private MD: Diagnosis: Abdominal pain, unspecified;Ileus, unspecified Presentation: 04/11 09:25 Chief complaint: Patient states: SEEN Y/D FOR EPIGASTRIC PAIN, REDIRECTED TO ER BY bp LEYVA FOR RE-IMAGING AND ADMIT VS TRANSFER. Coronavirus screen: At this time, the client does not indicate any symptoms associated with coronavirus-19. Ebola Screen: No symptoms or risks identified at this time. Initial Sepsis Screen: Does the patient meet any 2 criteria? No. Patient's initial sepsis screen is negative. Does the patient have a suspected source of infection? No. Patient's initial sepsis screen is negative. Risk Assessment: Do you want to hurt yourself or someone else? Patient reports no desire to harm self or others. Onset of symptoms is unknown. 09:25 Method Of Arrival: Ambulatory bp 09:25 Acuity: BREANNA 3 bp Triage Assessment: 09:25 General: Appears distressed, Behavior is cooperative, appropriate for age, anxious. bp Pain: Complains of pain in abdomen. EENT: No deficits noted. Neuro: No deficits noted. Cardiovascular: No deficits noted. Respiratory: No deficits noted. GI: Reports epigastric pain. : No signs and/or symptoms were reported regarding the genitourinary system. Derm: No deficits noted. Musculoskeletal: No deficits noted. 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 - Infectious Disease History:: Denies. - Social history:: Smoking status: unknown. - Family history:: not pertinent. - Hospitalizations: : No recent hospitalization is reported. Screenin:[facility] ED Fall Risk Assessment (Adult) History of falling in the last 3 months, mb9 including since admission No falls in past 3 months (0 pts) Confusion or Disorientation No (0 pts) Intoxicated or Sedated No (0 pts) Impaired Gait No (0 pts) Mobility Assist Device Used No (0 pt) Altered Elimination No (0 pt) Score/Fall Risk Level 0 - 2 = Low Risk Oriented to surroundings, Maintained a safe environment, Educated pt \T\ family on fall prevention, incl call for assistance when getting out of bed. Abuse screen: Denies threats or abuse. Nutritional screening: No deficits noted. Tuberculosis screening: No symptoms or risk factors identified. Assessment: 09:42 General: Appears uncomfortable, Behavior is cooperative. Pain: Complains of pain in mb9 abdomen Pain radiates to back Pain currently is 10 out of 10 on a pain scale. Quality of pain is described as crampy, throbbing, Pain began 1 day ago. Is continuous, Aggravated by increased activity, repositioning, weight bearing. Neuro: Weber Agitation-Sedation Scale (RASS): 0 - Alert and Calm Level of Consciousness is awake, alert, obeys commands, Oriented to person, place, time, situation, Appropriate for age. Cardiovascular: Patient's skin is warm and dry. Respiratory: Airway is patent Respiratory effort is even, unlabored, Respiratory pattern is regular, symmetrical, Breath sounds are clear bilaterally. GI: Abdomen is round non-distended, Bowel sounds present X 4 quads. Abd is soft Abdomen is tender to palpation X 4 quads. : No signs and/or symptoms were reported regarding the genitourinary system. EENT: No signs and/or symptoms were reported regarding the EENT system. Derm: Skin is pink, warm \T\ dry. Musculoskeletal: Range of motion: intact in all extremities. 09:50 Reassessment: CT notified of pt finishing oral contrast. mb9 10:49 Reassessment: Patient appears in no apparent distress at this time. No changes from mb9 previously documented assessment. Patient and/or family updated on plan of care and expected duration. Pain level reassessed. 12:00 Reassessment: Patient appears in no apparent distress at this time. No changes from mb9 previously documented assessment. Patient and/or family updated on plan of care and expected duration. Pain level reassessed. 14:33 Reassessment: Patient appears in no apparent distress at this time. No changes from mb9 previously documented assessment. Patient and/or family updated on plan of care and expected duration. Pain level reassessed. 15:59 Reassessment: Patient appears in no apparent distress at this time. No changes from mb9 previously documented assessment. Patient and/or family updated on plan of care and expected duration. Pain level reassessed. 18:00 Reassessment: Patient appears in no apparent distress at this time. No changes from mb9 previously documented assessment. Patient and/or family updated on plan of care and expected duration. Pain level reassessed. 19:15 General: Appears in no apparent distress. comfortable, Behavior is calm, cooperative. rg5 19:15 Pain: Complains of pain in abdomen Pain radiates to back Pain currently is 8 out of 10 rg5 on a pain scale. Quality of pain is described as aching, Pain began 1 day ago. Neuro: Level of Consciousness is awake, alert, obeys commands, Oriented to person, place, time, situation. Cardiovascular: Patient's skin is warm and dry. Respiratory: Airway is patent Respiratory effort is even, unlabored, Respiratory pattern is regular, symmetrical. GI: Abdomen is round non-distended, Bowel sounds present X 4 quads. Abd is soft. : No signs and/or symptoms were reported regarding the genitourinary system. EENT: No signs and/or symptoms were reported regarding the EENT system. Derm: Skin is intact, Skin is dry, Skin is normal. Musculoskeletal: Circulation, motion, and sensation intact. Range of motion: intact in all extremities. Vital Signs: 09:25 BP 123 / 78; Pulse 83; Resp 16; Temp 98; Pulse Ox 99% ; bp 10:48 BP 115 / 70; Pulse 88; Resp 16; Pulse Ox 100% on R/A; mb9 11:43 BP 147 / 86; Pulse 84; Resp 18; Pulse Ox 100% on R/A; mb9 12:33 BP 117 / 73; Pulse 74; Resp 18; Pulse Ox 100% on R/A; mb9 13:19 BP 115 / 75; Pulse 69; Resp 18; Pulse Ox 100% on R/A; mb9 15:10 BP 113 / 73; Pulse 73; Resp 16; Pulse Ox 98% ; mb9 17:00 BP 134 / 78; Pulse 60; Resp 18; Pulse Ox 100% on R/A; mb9 19:20 BP 107 / 70; Pulse 83; Resp 17; Temp 98.1; Pulse Ox 100% on R/A; Pain 8/10; rg5 19:20 Pain Scale: Adult rg5 ED Course: 09:17 Patient arrived in ED. mg5 09:17 Ron Blackman MD is Attending Physician. rn 09:21 Margaret Bosch RN is Primary Nurse. mb9 09:22 Arm band placed on. mb9 09:25 Placed in gown. Bed in low position. Call light in reach. Side rails up X 1. Provided mb9 Education on: press call light if needing anything. Client placed on continuous cardiac and pulse oximetry monitoring. NIBP monitoring applied. 09:26 Triage completed. bp 09:41 Initial lab(s) drawn, by me, sent to lab. Urine collected: clean catch specimen, clear. mb9 Inserted saline lock: 20 gauge in left antecubital area, using aseptic technique. Blood collected. Flushed with 10 mL NS. 09:43 No provider procedures requiring assistance completed. mb9 09:44 CBC with Diff Sent. mb9 09:44 CMP Sent. mb9 09:44 Lipase Sent. mb9 09:44 Urinalysis w/ reflexes Sent. mb9 11:30 CT Abd/Pelvis - PO and IV Contrast In Process Unspecified. EDMS 11:39 Patient requests pain medication. mb9 14:56 Patient requests pain medication. mb9 17:28 initiated transfer to [facility], pt declined due to not being accepted by dr Coffman. bd 17:29 initiated transfer to [facility]. bd 18:01 pt declined due to no capacity at this time. bd 18:05 initiated transfer to [facility]. bd 18:15 pt denied at [facility] due to not having a bariatric surgeon. bd 18:16 initiated transfer to [facility]. bd 18:[address] Dooley answering service at [phone]. bd 18:35 Dr Yeboah called back is currently talking to dr blackman. bd 18:43 [address] Blackman spoke with Dr Yeboah, was told that he no longer practices in [place] and bd cannot accept the pt. 18:44 initiated transfer to [facility]. bd 19:[address] Anthony at [facility]. Kasey will call back with bed rv1 assignment. 19:11 Report given to AGAPITO Medina. mb9 19:28 Kasey gave bed assignment [address]. Report to be called to transfer center rv1 [phone]. 19:44 Juan A with EMS gave 10-15 min ETA. rv1 20:09 Patient transferred, IV remains in place. intact, bleeding controlled, No rg5 redness/swelling at site. Administered Medications: 09:37 Drug: Ondansetron IVP 4 mg IVP once; over 2 minutes Route: IVP; Site: left antecubital; mb9 10:52 Follow up: Response: No adverse reaction mb9 09:40 Drug: Famotidine IVP 20 mg IVP once; dilute with 10 mL 0.9% NaCl; give over 2 minutes mb9 Route: IVP; Site: left antecubital; 10:52 Follow up: Response: No adverse reaction mb9 09:43 Drug: HYDROmorphone IVP 1 mg IVP once Route: IVP; Site: left antecubital; mb9 10:52 Follow up: Response: No adverse reaction mb9 11:43 Drug: HYDROmorphone IVP 1 mg IVP once Route: IVP; Site: left antecubital; mb9 12:40 Follow up: Response: No adverse reaction mb9 15:10 Drug: HYDROmorphone IVP 1 mg IVP once Route: IVP; Site: left antecubital; mb9 16:15 Follow up: Response: No adverse reaction mb9 17:49 Drug: HYDROmorphone IVP 1 mg IVP once Route: IVP; Site: left antecubital; mb9 18:57 Follow up: Response: No adverse reaction mb9 20:05 Drug: HYDROmorphone IVP 1 mg IVP once Route: IVP; Site: left antecubital; rg5 20:13 Follow up: Response: No adverse reaction; Pain is decreased rg5 Medication: 09:43 VIS not applicable for this client. mb9 Outcome: 15:08 ER care complete, transfer ordered by MD. mcgowan 20:08 Transferred by ground EMS to [facility], rg5 20:08 Condition: stable 20:08 Instructed on the need for transfer, Demonstrated understanding of instructions, 20:18 Patient left the ED. rg5 Signatures: Dispatcher [employer] EDMontserrat Castaneda bd Blackman, Ron, MD MD rn Duane, Juan, RN RN bp Margaret Bosch RN RN mb9 Loree Andersen [facility] Brittany Moore 5 Adam Wick RN RN rg5 Corrections: (The following items were deleted from the chart) 19:53 19:51 Kasey gave bed assignment [address]. Report to be called to transfer [address] [phone] [facility]
[2024-04-11 21:32] VITALS: O2SAT 100
[2024-04-11 21:34] VITALS: BP 107/70; TEMP 98.1
== END 2024-04-11 20:18 | disposition short-term general hospital (02) ==
LOC: ER 09:16
DX: K56.7 Ileus, unspecified (principal); Z98.84 Bariatric surgery status
CPT/HCPCS: 85025; 36415; 81003; 83690; 80053; 74177; Q9967; J1170 ×5; J2405; 96374; 96375; 99285

== ENCOUNTER 2024-04-13 18:33 | Emergency (ER) | payer OTHER ==
[2024-04-13] MEDS ORDERED: HYDROMORPHONE HCL 1 MG/ML INJ ONE ×3 (18:48→22:41)
[2024-04-13] MEDS ORDERED: ONDANSETRON 4 MG/2 ML VIAL ONE (18:48)
[2024-04-13 19:09] LABS: Absolute Eosinophils 0.1 K/uL (0-0.5); Absolute Monocytes 1.1 K/uL (0.1-1.3); Absolute Neutrophil 4.6 K/uL (1.8-8.0); Basophils % 0.5 % (0-1.3); Eosinophils % 1.2 % (0-4.4); Hematocrit 34.5 % (36.0-45.0); Hemoglobin 11.1 g/dL (12.0-15.0); Lymphocytes % 33.8 % (15.3-44.8); MCH 21.9 pg (27.0-35.0); MCHC 32.3 g/dL (32.0-36.0); MCV 67.9 fL (80-100); MPV 7.9 fL (7.6-11.3); Monocytes % 12.9 % (3.3-12.3); Neutrophils % 51.6 % (41.7-73.7); Platelets 317 thou/uL (152-406); RBC Red Blood Cell Count 5.08 M/uL (3.86-4.86); Red Cell Distribution Width 15.3 % (12.1-15.2)
[2024-04-13 19:10] LABS: White Blood Cell Scan OK (OK)
[2024-04-13 19:11] LABS: Blood Morphology Comment NOTED (NOT SEEN); Hypochromasia 1+; Microcytosis 1+; Platelet Estimate ADEQ
[2024-04-13 19:23] LABS: Albumin 3.8 g/dL (3.4-5.0); Anion Gap 8.1 mEq/L (5.0-15.0); Bilirubin Total 0.4 mg/dL (0.2-1.0); Globulin 3.7 g/dL (2.3-3.5); Potassium 4.1 mEq/L (3.5-5.1); Protein, Total 7.5 g/dL (6.4-8.2)
--- NOTE | 2024-04-13 19:41 | ER ---
Nurse's Notes [facility] Name: Tyra Ribera Age: 33 yrs Sex: Female : 1990 Arrival Date: 04/13/2024 Time: 18:33 Bed 7 Private MD: Diagnosis: Abdominal tenderness-SP BOWEL SURGERY 04/12;Vomiting Presentation: 04/13 18:40 Chief complaint: Patient states: ABDOMINAL PAIN AFTER SURGERY. Coronavirus screen: At bp this time, the client does not indicate any symptoms associated with coronavirus-19. Ebola Screen: No symptoms or risks identified at this time. Initial Sepsis Screen: Does the patient meet any 2 criteria? No. Patient's initial sepsis screen is negative. Does the patient have a suspected source of infection? No. Patient's initial sepsis screen is negative. Risk Assessment: Do you want to hurt yourself or someone else? Patient reports no desire to harm self or others. Onset of symptoms is unknown. 18:40 Method Of Arrival: Wheelchair bp 18:40 Acuity: BREANNA 3 bp Triage Assessment: 18:40 General: Appears uncomfortable, Behavior is cooperative, appropriate for age, agitated, bp anxious. Pain: Complains of pain in abdomen. EENT: No deficits noted. Neuro: No deficits noted. Cardiovascular: No deficits noted. Respiratory: No deficits noted. GI: Reports lower abdominal pain, upper abdominal pain. : No signs and/or symptoms were reported regarding the genitourinary system. Derm: No deficits noted. Musculoskeletal: No deficits noted. 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 - Infectious Disease History:: Denies. - Social history:: Smoking status: unknown. - Family history:: not pertinent. Screenin:43 [facility] ED Fall Risk Assessment (Adult) History of falling in the last 3 months, bp including since admission No falls in past 3 months (0 pts) Confusion or Disorientation No (0 pts) Intoxicated or Sedated No (0 pts) Impaired Gait No (0 pts) Mobility Assist Device Used No (0 pt) Altered Elimination No (0 pt) Score/Fall Risk Level 0 - 2 = Low Risk. Abuse screen: Denies threats or abuse. Denies injuries from another. Nutritional screening: No deficits noted. Tuberculosis screening: No symptoms or risk factors identified. Assessment: 18:40 General: Appears distressed, uncomfortable, Behavior is cooperative, appropriate for bp age, agitated, anxious. 20:41 Reassessment: Patient appears in no apparent distress at this time. Patient and/or kj2 family updated on plan of care and expected duration. Pain level reassessed. Patient is alert, oriented x 3, equal unlabored respirations, skin warm/dry/pink. 21:38 Reassessment: Patient moaning in pain. Provider notified. No new orders at this time. cp4 21:48 Reassessment: Patient updated on status of transfer. Patient still in pain, provider cp4 notified. No new orders at this time. Vital Signs: 18:40 BP 157 / 84; Pulse 90; Resp 16; Temp 98.8; Pulse Ox 100% ; Weight 96.62 kg; Height 5 bp ft. 3 in. ; 19:00 BP 123 / 77; Pulse 81; Resp 18; Pulse Ox 98% ; cp4 20:00 BP 117 / 55; Pulse 80; Resp 18; Pulse Ox 98% ; cp4 20:41 BP 107 / 55; Pulse 75; Pulse Ox 100% on R/A; kj2 21:00 BP 131 / 61; Pulse 89; Resp 18; Pulse Ox 100% ; cp4 22:00 BP 116 / 103; Pulse 82; Resp 18; Pulse Ox 99% ; cp4 18:40 Body Mass Index 37.73 (96.62 kg, 160.02 cm) bp ED Course: 18:40 Patient arrived in ED. bp 18:40 Felton Salinas MD is Attending Physician. zack 18:41 Triage completed. bp 18:41 Arm band placed on Patient placed in an exam room, on a stretcher. ll1 18:43 Patient has correct armband on for positive identification. bp 18:55 Juan Zepeda, AGAPITO is Primary Nurse. bp 18:57 Initial lab(s) drawn, by me, sent to lab. Inserted saline lock: 20 gauge in right bp antecubital area, using aseptic technique. Blood collected. Flushed with 10 mL NS. 19:22 Contacted the On-call service for Dr. Anthony. Will call back for consult. rv1 20:26 Attending Physician role handed off by Felton Salinas MD sp3 20:26 Jas Washington MD is Attending Physician. sp3 20:40 Test, Serum Sent. kj2 20:53 CT Abd/Pelvis - IV Contrast Only In Process Unspecified. EDMS 20:[address] before transfer initiation per physicians request. rv1 22:44 Provided Education on: transfer. cp4 22:44 No provider procedures requiring assistance completed. Patient transferred, IV remains cp4 in place. Administered Medications: 18:56 CANCELLED (Duplicate Order): morphineor iv 4 mg IVP once over 4 mins bp 18:56 CANCELLED (Duplicate Order): ondansetron 4 mg IVP once; over 2 minutes bp 18:57 Drug: Ondansetron IVP 4 mg IVP once; over 2 minutes Route: IVP; Site: right antecubital;bp 19:15 Follow up: Response: No adverse reaction cp4 18:57 Drug: HYDROmorphone IVP 1 mg IVP once Route: IVP; Site: right antecubital; bp 19:15 Follow up: Response: No adverse reaction; Pain is decreased cp4 19:48 Drug: NS 0.9% IV 1000 ml IV at 1 bolus Per protocol; 1000 mL bolus Route: IV; Rate: 1 cp4 bolus; Site: right antecubital; 21:11 Follow up: Response: No adverse reaction; IV Status: Completed infusion cp4 19:49 Drug: NS 0.9% IV 1000 ml IV at 1 bolus Per protocol; 1000 mL bolus Route: IV; Rate: 1 cp4 bolus; Site: right antecubital; 21:10 Follow up: Response: No adverse reaction; IV Status: Completed infusion cp4 19:49 Drug: Ciprofloxacin IVPB 400 mg 200 ml IVPB once over 60 mins Volume: 200 ml; Route: cp4 IVPB; Infused Over: 60 mins; Site: right antecubital; 21:10 Follow up: Response: No adverse reaction; IV Status: Completed infusion cp4 19:49 Drug: HYDROmorphone IVP 1 mg IVP once Route: IVP; Site: right antecubital; cp4 20:22 Follow up: Response: No adverse reaction; Pain is decreased cp4 20:23 Drug: Famotidine IVP 20 mg IVP once; dilute with 10 mL 0.9% NaCl; give over 2 minutes cp4 Route: IVP; Site: right antecubital; 20:43 Follow up: Response: No adverse reaction cp4 21:11 Drug: metroNIDAZOLE IVPB 500 mg 100 ml IVPB at 200 ml/hr once over 30 mins Volume: 100 cp4 ml; Route: IVPB; Rate: 200 ml/hr; Infused Over: 30 mins; Site: right antecubital; 22:09 Follow up: Response: No adverse reaction; IV Status: Completed infusion cp4 22:42 Drug: HYDROmorphone IVP 1 mg IVP once Route: IVP; Site: right antecubital; cp4 22:46 Follow up: Response: No adverse reaction cp4 Medication: 22:44 VIS not applicable for this client. cp4 Outcome: 19:41 ER care complete, transfer ordered by MD. dixon 22:44 Transferred to [facility], Transfer form completed. X-rays sent w/ patient. cp4 22:44 Condition: stable 22:44 Instructed on the need for transfer, 22:46 Patient left the ED. cp4 Signatures: Dispatcher [employer] EDMS Felton Salinas MD MD cha Peltier, Brian, RN RN Mk Kim RN RN ll1 Jas Washington MD MD sp3 Loree Andersen Christina cp4 Glenna Rothman, RN RN kj2
--- NOTE | 2024-04-13 19:41 | EDPHYS ---
Physician Documentation [facility] Name: Tyra Ribera Age: 33 yrs Sex: Female : 1990 Arrival Date: 04/13/2024 Time: 18:33 Bed 7 Private MD: ED Physician Jas Washington HPI: 04/13 19:37 This 33 yrs old Female presents to ER via Wheelchair with complaints of zack Abdominal Pain. 19:37 The patient presents with abdominal pain in the upper abdomen, in the lower abdomen. zack Onset: The symptoms/episode began/occurred 1 day(s) ago. The symptoms do not radiate. Associated signs and symptoms: Pertinent positives: nausea and vomiting. The symptoms are described as constant, crampy. Modifying factors: The symptoms are alleviated by nothing, the symptoms are aggravated by nothing. Severity of pain: At its worst the pain was moderate severe in the emergency department the pain has improved mildly. The patient has experienced similar episodes in the past, a few times. 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 - Infectious Disease History:: Denies. - Social history:: Smoking status: unknown. - Family history:: not pertinent. ROS: 19:37 Constitutional: Negative for fever, chills, and weight loss, Eyes: Negative for injury, zack pain, redness, and discharge, ENT: Negative for injury, pain, and discharge, Neck: Negative for injury, pain, and swelling, Cardiovascular: Negative for chest pain, palpitations, and edema, Respiratory: Negative for shortness of breath, cough, wheezing, and pleuritic chest pain, Back: Negative for injury and pain, : Negative for injury, bleeding, discharge, and swelling, MS/Extremity: Negative for injury and deformity, Skin: Negative for injury, rash, and discoloration, Neuro: Negative for headache, weakness, numbness, tingling, and seizure, Psych: Negative for depression, anxiety, suicide ideation, homicidal ideation, and hallucinations, Allergy/Immunology: Negative for hives, rash, and allergies, Endocrine: Negative for neck swelling, polydipsia, polyuria, polyphagia, and marked weight changes, Hematologic/Lymphatic: Negative for swollen nodes, abnormal bleeding, and unusual bruising, 19:37 Abdomen/GI: Positive for abdominal pain, nausea and vomiting, of the right upper quadrant, left upper quadrant, right lower quadrant and left lower quadrant, Exam: 19:37 Constitutional: This is a well developed, well nourished patient who is awake, alert, zack and in no acute distress. Head/Face: Normocephalic, atraumatic. Eyes: Pupils equal round and reactive to light, extra-ocular motions intact. Lids and lashes normal. Conjunctiva and sclera are non-icteric and not injected. Cornea within normal limits. Periorbital areas with no swelling, redness, or edema. ENT: Nares patent. No nasal discharge, no septal abnormalities noted. Tympanic membranes are normal and external auditory canals are clear. Oropharynx with no redness, swelling, or masses, exudates, or evidence of obstruction, uvula midline. Mucous membranes moist. Neck: Trachea midline, no thyromegaly or masses palpated, and no cervical lymphadenopathy. Supple, full range of motion without nuchal rigidity, or vertebral point tenderness. No Meningismus. Chest/axilla: Normal chest wall appearance and motion. Nontender with no deformity. No lesions are appreciated. Cardiovascular: Regular rate and rhythm with a normal S1 and S2. No gallops, murmurs, or rubs. Normal PMI, no JVD. No pulse deficits. Respiratory: Lungs have equal breath sounds bilaterally, clear to auscultation and percussion. No rales, rhonchi or wheezes noted. No increased work of breathing, no retractions or nasal flaring. Back: No spinal tenderness. No costovertebral tenderness. Full range of motion. Skin: Warm, dry with normal turgor. Normal color with no rashes, no lesions, and no evidence of cellulitis. MS/ Extremity: Pulses equal, no cyanosis. Neurovascular intact. Full, normal range of motion. Neuro: Awake and alert, GCS 15, oriented to person, place, time, and situation. Cranial nerves II-XII grossly intact. Motor strength 5/5 in all extremities. Sensory grossly intact. Cerebellar exam normal. Normal gait. Psych: Awake, alert, with orientation to person, place and time. Behavior, mood, and affect are within normal limits. 19:37 Abdomen/GI: Inspection: distension, that is mild, Bowel sounds: high pitched, all quadrants. Palpation: moderate abdominal tenderness, in all quadrants, Liver: no appreciated palpable abnormalities, Hernia: not appreciated, Vital Signs: 18:40 BP 157 / 84; Pulse 90; Resp 16; Temp 98.8; Pulse Ox 100% ; Weight 96.62 kg; Height 5 bp ft. 3 in. ; 19:00 BP 123 / 77; Pulse 81; Resp 18; Pulse Ox 98% ; cp4 20:00 BP 117 / 55; Pulse 80; Resp 18; Pulse Ox 98% ; cp4 20:41 BP 107 / 55; Pulse 75; Pulse Ox 100% on R/A; kj2 21:00 BP 131 / 61; Pulse 89; Resp 18; Pulse Ox 100% ; cp4 22:00 BP 116 / 103; Pulse 82; Resp 18; Pulse Ox 99% ; cp4 18:40 Body Mass Index 37.73 (96.62 kg, 160.02 cm) bp MDM: 18:40 Patient medically screened. zack 19:39 Differential diagnosis: bowel obstruction, Mesenteric ischemia or infarction, zack non-specific abd pain, pancreatitis, Peritonitis, Ureterolithiasis, urinary tract infection. Data reviewed: vital signs, nurses notes, lab test result(s), radiologic studies, CT scan. Consideration of Admission/Observation Escalation of care including admission/observation considered. I considered the following discharge prescriptions or medication management in the emergency department Medications were administered in the Emergency Department. See MAR. Independent interpretation of the following test(s) in the Emergency Department CT Scan: My interpretation is CT ABD/PEL. Test considered but Not performed: Ultrasound NO ABD USG. Historians other than the Patient: Spouse/Significant Other: WELL INFORMED. Care significantly affected by the following chronic conditions: Obesity. 04/13 18:56 Order name: CBC with Diff; Complete Time: 19:36 zack 04/13 18:56 Order name: CMP; Complete Time: 19:36 zack 04/13 18:56 Order name: Lipase; Complete Time: 19:36 zack 04/13 18:56 Order name: Test, Urine; Complete Time: 21:16 zack 04/13 18:56 Order name: Urinalysis w/ reflexes; Complete Time: 21:16 zack 04/13 18:56 Order name: CBC with Diff bp 04/13 18:56 Order name: CMP bp 04/13 18:56 Order name: Lipase bp 04/13 19:11 Order name: CBC Smear Scan; Complete Time: 19:36 EDMS 04/13 19:41 Order name: Test, Serum; Complete Time: 21:23 zack 04/13 18:56 Order name: CT Abd/Pelvis - IV Contrast Only; Complete Time: 21:16 bp 04/13 18:56 Order name: IV Saline Lock; Complete Time: 19:09 zack 04/13 18:56 Order name: Labs collected and sent; Complete Time: 19:09 zack 04/13 18:56 Order name: IV Saline Lock; Complete Time: 18:56 bp 04/13 18:56 Order name: Labs collected and sent; Complete Time: 18:57 bp Administered Medications: 18:56 CANCELLED (Duplicate Order): morphineor iv 4 mg IVP once over 4 mins bp 18:56 CANCELLED (Duplicate Order): ondansetron 4 mg IVP once; over 2 minutes bp 18:57 Drug: Ondansetron IVP 4 mg IVP once; over 2 minutes Route: IVP; Site: right antecubital;bp 19:15 Follow up: Response: No adverse reaction cp4 18:57 Drug: HYDROmorphone IVP 1 mg IVP once Route: IVP; Site: right antecubital; bp 19:15 Follow up: Response: No adverse reaction; Pain is decreased cp4 19:48 Drug: NS 0.9% IV 1000 ml IV at 1 bolus Per protocol; 1000 mL bolus Route: IV; Rate: 1 cp4 bolus; Site: right antecubital; 21:11 Follow up: Response: No adverse reaction; IV Status: Completed infusion cp4 19:49 Drug: NS 0.9% IV 1000 ml IV at 1 bolus Per protocol; 1000 mL bolus Route: IV; Rate: 1 cp4 bolus; Site: right antecubital; 21:10 Follow up: Response: No adverse reaction; IV Status: Completed infusion cp4 19:49 Drug: Ciprofloxacin IVPB 400 mg 200 ml IVPB once over 60 mins Volume: 200 ml; Route: cp4 IVPB; Infused Over: 60 mins; Site: right antecubital; 21:10 Follow up: Response: No adverse reaction; IV Status: Completed infusion cp4 19:49 Drug: HYDROmorphone IVP 1 mg IVP once Route: IVP; Site: right antecubital; cp4 20:22 Follow up: Response: No adverse reaction; Pain is decreased cp4 20:23 Drug: Famotidine IVP 20 mg IVP once; dilute with 10 mL 0.9% NaCl; give over 2 minutes cp4 Route: IVP; Site: right antecubital; 20:43 Follow up: Response: No adverse reaction cp4 21:11 Drug: metroNIDAZOLE IVPB 500 mg 100 ml IVPB at 200 ml/hr once over 30 mins Volume: 100 cp4 ml; Route: IVPB; Rate: 200 ml/hr; Infused Over: 30 mins; Site: right antecubital; 22:09 Follow up: Response: No adverse reaction; IV Status: Completed infusion cp4 22:42 Drug: HYDROmorphone IVP 1 mg IVP once Route: IVP; Site: right antecubital; cp4 22:46 Follow up: Response: No adverse reaction cp4 Disposition Summary: 04/13/24 19:41 Transfer Ordered Notes: Transfer Location: [facility] zack Reason: Higher level of care zack Condition: Fair zack Problem: new zack Symptoms: have improved zack Accepting Physician: TO RESTORATIONISM(04/13/24 22:46) cp4 Diagnosis - Abdominal tenderness - SP BOWEL SURGERY 04/12 zack - Vomiting zack Forms: - Medication Reconciliation Form zack - SBAR form zack Signatures: Dispatcher [employer] Felton Daigle MD MD cha Peltier, Brian, RN RN bp Lewis, Lynsay, RN RN ll1 Jas Washington MD MD sp3 Carol Oropeza cp4 Corrections: (The following items were deleted from the chart) 18:56 18:56 morphine IVP or IV 4 mg IVP once over 4 mins ordered. zack bp 18:56 18:56 Ondansetron IVP 4 mg IVP once; over 2 minutes ordered. bp bp 18:56 18:56 CBC+H.LAB.BRZ ordered. EDMS EDMS 18:56 18:56 COMPREHENSIVE METABOLIC PANEL+C.LAB.BRZ ordered. EDMS EDMS 18:56 18:56 LIPASE+C.LAB.BRZ ordered. EDMS EDMS 18:56 18:56 Test, Urine+UC.LAB.BRZ ordered. EDMS EDMS 18:56 18:56 Urinalysis+U.LAB.BRZ ordered. EDMS EDMS 19:09 18:56 Abdomen Pelvis W Con+CT.RAD.BRZ ordered. EDMS EDMS 22:46 19:41 TO RESTORATIONISM zack cp4
[2024-04-13] MEDS ORDERED: NA CHLORIDE 0.9% 1,000 ML ONE (19:42)
[2024-04-13] MEDS ORDERED: METRONIDAZOLE 500mg IVPB 500 MG/100 ML BAG IV ONE (19:42)
[2024-04-13] MEDS ORDERED: CIPROFLOXACIN 400mg IV 400 MG/200 ML BAG IV ONE (19:42)
[2024-04-13] MEDS ORDERED: FAMOTIDINE 20 MG/2 ML VIAL IV ONE (20:24)
[2024-04-13 20:36] LABS: Urine Bilirubin NEGATIVE (Negative); Urine Blood Negative (Negative); Urine Clarity Clear (Clear); Urine Color Colorless (Yellow); Urine Glucose NEGATIVE (Negative); Urine Ketones NEGATIVE (Negative); Urine Microscopic Reflex YN NO UMIC; Urine Nitrite NEGATIVE (Negative); Urine Protein NEGATIVE (Negative); Urine Urobilinogen Normal (Normal); Urine pH 6.5 (5.0-7.0)
--- NOTE | 2024-04-13 21:13 | RAD REPORT ---
EXAMINATION: CT ABDOMEN AND PELVIS WITH CONTRAST CLINICAL INDICATION: Female, 33 years old.Abd pain;Abdominal distention TECHNIQUE: CT abdomen and pelvis was performed, after the administration of IV contrast, as per [facility] protocol. Axial, sagittal and coronal reconstructions were obtained. One or more of the following dose reduction techniques were used: Automated exposure control, adjustment of the mA and/o r kV according to patient size, and/or iterative reconstruction. Unless otherwise specified, incidental findings do not require dedicated imaging follow-up. [id number]. COMPARISON: 04/11/2024 FINDINGS: LOWER CHEST: The visualized lung bases are clear. LIVER: Normal in size and contour. No focal lesion. GALLBLADDER/BILE DUCT: Cholecystectomy.? PANCREAS: No mass, ductal dilation, or aury-pancreatic fluid. SPLEEN: Normal size. No focal lesion. ADRENALS: Normal; no mass. KIDNEYS AND URETERS: Normal size and contour. No hydronephrosis. Bilateral renal lesions which are ei ther benign in appearance or too small to accurately characterize but statistically benign. URINARY BLADDER: Normal contour. GASTROINTESTINAL TRACT: Marcela-en-Y gastric bypass. Moderate stool. PERITONEUM: Trace free air identified in the region of the right hemidiaphragm and on the left hepati c lobe. There is some stranding in the jejunal mesentery which is similar to prior. This was also present on the prior exam. LYMPH NODES: No lymphadenopathy. ABDOMINAL AORTA AND OTHER VESSELS: Normal caliber aorta and IVC. REPRODUCTIVE ORGANS: Corpus luteal cyst in the left ovary. MUSCULOSKELETAL: No acute or suspicious osseous abnormality. ADDITIONAL FINDINGS: None. IMPRESSION: Small volume of pneumoperitoneum which may be post-surgical. By report, the patient had surgery yeste rday for bowel perforation. The distribution of gas underneath the diaphragms but not localized to any particular segment of bowel makes post-operative pneumoperitoneum more likely and not recurrent b owel perforation.
[2024-04-14 15:52] VITALS: TEMP 98.8
[2024-04-14 15:59] VITALS: BP 116/103; O2SAT 99
== END 2024-04-13 22:46 | disposition short-term general hospital (02) ==
LOC: ER 18:33
DX: R10.9 Unspecified abdominal pain (principal); R11.2 Nausea with vomiting, unspecified; Z98.890 Other specified postprocedural states; Z88.0 Allergy status to penicillin; Z91.040 Latex allergy status
CPT/HCPCS: 96365; 96367; 85025; 36415; 84703; 81025; 81003; 83690; 80053; 74177; 96375; 99285; Q9967; J1170 ×3; J2405; J0744; J7030